=== PATIENT | male | born 1945 | race Caucasian/White ===

== ENCOUNTER → 2024-07-13 15:39 | Outpatient (REF) | payer MEDICARE, BC, SELFPAY | LOC: RCS 15:39 | PROVIDERS: ATTENDING PHYSICIAN Internal Medicine Cardiovascular Disease; FAMILY PHYSICIAN Nurse Practitioner Family | DX: I50.32 Chronic diastolic (congestive) heart failure (principal) | CPT/HCPCS: 93306 ==

== ENCOUNTER 2024-07-30 14:56 | Inpatient (IN) | payer MEDICARE, BC, SELFPAY ==
[2024-07-28] VITALS (10 sets, daily range): BP systolic 88–134; BP diastolic 44–68; BMI 24.2; BMI 23.7
[2024-07-28 14:10] LABS: Glucose - Point of Care 121 mg/dl (70-99)
[2024-07-28 15:21] LABS: % Basophils 1.2 % (0-2); % Eosinophils 4.3 % (0-6); % Lymphocytes 21.2 % (20.5-51.1); % Monocytes 6.4 % (1.7-9.3); % Neutrophils 65.9 % (42.2-75.2); Absolute Basophils 0.1 10^3/uL (0-0.2); Absolute Eosinophils 0.4 10^3/uL (0-0.7); Absolute Immature Granulocytes 0.1 10^3/uL (0-0.05); Absolute Lymphocytes 1.9 10^3/uL (1.2-3.4); Absolute Monocytes 0.6 10^3/uL (0.1-0.6); Absolute Neutrophils 5.9 10^3/uL (1.4-6.5); Hematocrit 30.7 % (39.0-52.0); Hemoglobin 10.3 g/dL (13.0-18.0); Mean Corp Hgb Conc. 33.6 g/dL (33.0-37.0); Mean Corpuscular Hgb 34.6 pg (27.0-31.0); Mean Platelet Volume 9.6 fL (7.4-10.4); Nucleated Red Blood Cells % 0 % (-); Platelet Count 342 10^3/uL (130-400); Red Blood Cell Count 2.98 10^6/uL (4.70-6.10); Red Cell Dist. Width 16.9 % (11.5-14.5)
[2024-07-28 15:35] LABS: ALT (SGPT) 19 U/L (0-50); AST (SGOT) 30 U/L (17-59); Albumin 4.1 g/dl (3.5-5.0); Alkaline Phosphatase 66 U/L (38-126); Blood Urea Nitrogen 33 mg/dl (9-20); Calcium 9.4 mg/dl (8.4-10.2); Carbon Dioxide 30 mmol/L (22-30); Chloride 94 mmol/L (98-107); Glucose 100 mg/dl (70-99); Potassium 4.4 mmol/L (3.5-5.1); Sodium 135 mmol/L (135-145); Total Bilirubin 0.6 mg/dl (0.2-1.3); Total Protein 6.7 g/dl (6.3-8.2); eGFR 4.86
--- NOTE | 2024-07-28 16:10 | EDRN ---
the pt is resting in stretcher in the lowest position, side rails up x2, call molina within reach, HOB elevated, no s/s of distress, NIH 0, Dr. Tavares at the pts bedside, the pt has a RLQ Permacath present, VS WNL, will continue to monitor the pt
closely
--- NOTE | 2024-07-28 16:13 | ED.CVA ---
History of Present Illness
General
Chief Complaint: CVA/TIA Symptoms
Source: patient and respiratory care faculty
Exam Limitations: none
Time Seen by Provider: 07/28/24 16:03
Onset of Stroke Symptoms
Onset of symptoms known: No
Time pt last seen normal is known: Yes
Date last time pt seen normal: 07/28/24
History of Present Illness
History of Present Illness:
79-year-old male with 3 episodes of confusion and trouble with speech. 2 over the weekend. 1 this morning. Symptoms have resolved. No other issues. Patient currently asymptomatic.
Past History
Past History
ED Past Medical History: HTN, Hypercholesterolemia and Other (Renal failure/peritoneal dialysis)
ED Past Surgical History: Other (Dialysis catheter)
Phy Exam
Physical Exam
Physical Exam:
GENERAL: Alert and oriented in no apparent distress
EYE: Orbits normal.
NECK: Supple, no significant adenopathy.
ENT: Pharynx without erythema. A dentulous
CARDIAC: Regular rate and rhythm without any obvious murmurs.
LUNGS: Clear breath sounds,normal
ABDOMEN: Soft, without focal tenderness or distention. Peritoneal dialysis catheter
NEUROLOGICAL: Alert and oriented , speech normal. Cranial nerves II through XII intact. No drift.
SKIN: Warm and dry, no rash or lesion, no discoloration, skin intact.
MUSCULOSKELETAL: No edema,no deformity.Good color
PSYCH: Normal and appropriate interaction.
Course
Orders/Labs/Results
Orders:
Orders
07/28/24 14:10
Electrocardiogram (*1) Urgent
Reason for Study: TIA/Stroke
CT Head W/o Iv Contrast Urgent
Comment:
Reason For Exam: aphasic today but has resovled
07/28/24 14:11
EKG- Treatment ONCE
07/28/24 15:06
Complete Blood Count/With Diff Urgent
Comprehensive Metabolic Panel Urgent
07/28/24 16:40
Admit/Transfer Patient As Directed
Co-Sign Provider:
Level of Care: Observation services
Assign to:: Telemetry
Physician / Group: dennise
Diagnosis: recurrent tia
Reason for Telemetry: CVA/TIA
Date to Stop Telemetry: 07/31/24
Time to Stop Telemetry: 11:00
PRN Pain Medication Management As Directed
May give lesser potent ordered pain med per pt: Yes
preference::
Protocol:: Medication orders for pain may be administered in a
manner that supports deferring to patient preference
when the pt is:
- Requesting an ordered lesser potent pain medication.
Least to most potent pain medications are defined
as: acetaminophen < NSAID < tramadol < opioids
(morphine, oxycodone, hydromorphone).
- Requesting a lesser dose of the same medication IF
ORDERED.
- Requesting a less intrusive route of administration
if both routes are prescribed by the provider (PO <
IV).
07/28/24 16:41
Code Status As Directed
Resuscitation Status: Full Code
07/31/24 11:00
DC Protocol for Telemetry ONCE
Abnormal Lab Results
07/28/24 07/28/24
14:08 15:06
RBC 2.98 L 10^6/uL
(4.70-6.10)
Hgb 10.3 L g/dL
(13.0-18.0)
Hct 30.7 L %
(39.0-52.0)
MCV 103.0 H fL
(80.0-94.0)
MCH 34.6 H pg
(27.0-31.0)
RDW 16.9 H %
(11.5-14.5)
Abs Immat Gran (auto) 0.1 H 10^3/uL
(0-0.05)
Immature Gran % 1.0 H %
(0-0.5)
Chloride 94 L mmol/L
(98-107)
BUN 33 H mg/dl
(9-20)
Creatinine 10.0 H* mg/dL
(0.7-1.3)
Glucose 100 H mg/dl
(70-99)
POC Glucose 121 H mg/dl
(70-99)
07/28/24 15:06
07/28/24 15:06
Vital Signs
Initial and Last Documented VS:
Initial Vital Signs
Temp Pulse Resp BP Pulse Ox
98.4 F 75 16 88/59 98
07/28/24 14:09 07/28/24 14:09 07/28/24 14:09 07/28/24 14:09 07/28/24 14:09
Last Documented Vital Signs
Temp Pulse Resp BP Pulse Ox
98.5 F 76 13 126/52 96
07/28/24 16:05 07/28/24 17:33 07/28/24 17:33 07/28/24 17:33 07/28/24 17:33
MDM/Problems Addressed
Differential Diagnosis Includes:
Recurrent episodes of neurologic changes some with speech issues. Presumptive recurrent TIA. Admission for further care
*Radiology
Radiology exam reviewed: radiology read reviewed (Negative)
*Pulse Oximetry
Patient hypoxic: no
*Critical Care Note
Total Time (30-74mins, 75-104mins- exclusive of procedures): Not Applicable
ED Attending Note
-
Portions of this chart may have been created with voice recognition software.� Occasional wrong word or��sound alike� substitutions may have occurred due to the inherent limitations of voice recognition software.
Discharge Plan
Departure
Patient Disposition: Admit
Date of Disposition: 07/28/24
Time of Disposition: 16:15
Presentation/result/management discussed w/ accepting MD/DO: Hospitalist
Discharge Problem:
Intermittent mental status change, Presumed recurrent TIAs, Renal failure
Interventions
Interventions:
*Risk Screen - Suicide Last Done: 07/28/24 14:09
*Neglect/Abuse Screening Last Done: 07/28/24 14:09
ED- Fall Risk Assessment Last Done: 07/28/24 16:05
*ED COVID-19 Vaccine History Last Done: 07/28/24 16:05
ED- Pulmonary Assessment Last Done: 07/28/24 16:05
ED- Neurological Assessment Last Done: 07/28/24 16:05
ED- Cardiac Assessment Last Done: 07/28/24 16:05
ED Swallowing Screen Last Done: 07/28/24 16:05
--- NOTE | 2024-07-28 16:45 | HPS.HSE ---
Family Physician
-
Family Physician: LUZ MARIA Wolfe
Chief Complaint
-
confusion, difficulty speaking
History of Present Illness
79-year-old male past medical history of CAD status post CABG, paroxysmal atrial fibrillation, HFrEF, ESRD on peritoneal dialysis, hypertension, hypercholesteremia, hypothyroidism, presenting for 3 episodes of confusion and difficulty with speech.
He had 2 episodes over the weekend and 1 episode this morning. During the episode once he did not recognize his nurse. Symptoms are currently resolved. He denies any headache, blurry vision, chest pain, shortness of breath, numbness or tingling,
difficulty swallowing or vertigo at any time. He does feel off balance but this is not a new symptom.
He denies history of prior strokes.
He denies smoking or alcohol use.
Medical History
Past Medical History
Past Medical History: Reports Other (CAD status post CABG, paroxysmal atrial fibrillation, HFrEF, ESRD on peritoneal dialysis, hypertension, hypercholesteremia, hypothyroidism)
Past Surgical History: Reports None
Social History
Tobacco: Non-smoker
Alcohol: None
Drug: None
Family History
Family History: Not pertinent
Allergies / Home Medications
Allergies reflects when Allergies were last updated in [facility].
Home Medications with original date entered in [facility]
Allergy/Medication List:
Allergies
Allergy/AdvReac Type Severity Reaction Status Date / Time
No Known Allergies Allergy Verified 07/28/24 14:10
Home Medications
amiodarone 200 mg tablet 200 mg PO DAILY 07/28/24
amlodipine 5 mg tablet 5 mg PO DAILY 07/28/24
apixaban 2.5 mg tablet (Eliquis) 2.5 mg PO DAILY 07/28/24
atorvastatin 40 mg tablet 40 mg PO DAILY 07/28/24
calcium carbonate 500 mg PO TID 07/28/24
cholecalciferol (vitamin D3) 25 mcg (1,000 unit) tablet (Vitamin D3) 25 mcg PO DAILY 07/28/24
cyanocobalamin (vitamin B-12) 1,000 mcg tablet 1,000 mcg PO DAILY 07/28/24
docusate sodium 100 mg capsule (Colace) 100 mg PO DAILY 07/28/24
levothyroxine 150 mcg tablet 150 mcg PO DAILY 07/28/24
lisinopril 20 mg tablet 40 mg PO DAILY 07/28/24
magnesium oxide 400 mg (241.3 mg magnesium) tablet 400 mg PO DAILY 07/28/24
vitamin B complex-vitamin C-folic acid 800 mcg chewable tablet (Dialyvite 800) 1 tab PO DAILY 07/28/24
Review of Systems
-
History Source: Patient
A 12 point ROS was completed and negative except as noted: Yes
Physical Exam
Vital Signs
Vital Signs
Temp Pulse Resp BP Pulse Ox
98.5 F 64 18 134/56 100
07/28/24 16:05 07/28/24 16:06 07/28/24 16:06 07/28/24 16:06 07/28/24 16:06
Physical Exam
General: Well Developed, Well Nourished and No Apparent Distress
HEENT: NormoCephalic, Moist mucous membranes and Atraumatic
Respiratory: Clear
Cardiac: S1/S2 and Regular Rhythm; No Murmur or Rub
GI: Soft, Non Tender, Non Distended and Normal Bowel Sounds; No Organomegaly
Rectal: Deferred by Provider
Musculoskeletal: No Clubbing, No Cyanosis and No Edema
Skin: No Rash
Neuro: Nonfocal/grossly intact
Laboratory Results
-
07/28/24 15:06
07/28/24 15:06
Laboratory Results
Total Bilirubin 0.6 mg/dl (0.2-1.3) 07/28/24 15:06
AST 30 U/L (17-59) 07/28/24 15:06
ALT 19 U/L (0-50) 07/28/24 15:06
Alkaline Phosphatase 66 U/L (38-126) 07/28/24 15:06
Data Reviewed
-
Lab Data: Labs Reviewed by me
Old Records: Reviewed
Impression/Plan
-
IMPRESSION:
PLAN:
# Recurrent TIA
-no symptoms currently, has been compliant with Eliquis
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
-Neurology consulted
-Check MRI brain
-Continue Eliquis
-Urinalysis pending
-Neurology consulted
CAD status post CABG
Paroxysmal atrial fibrillation
-Continue Eliquis
-Continue amiodarone
Chronic HFrEF with recovered EF
-Continue Lasix
ESRD on peritoneal dialysis
-Nephrology consulted to facilitate peritoneal dialysis
Essential hypertension
-Continue amlodipine, lisinopril
Hypercholesterolemia
-Continue statin
Hypothyroidism
-Continue levothyroxine
Chronic anemia
-Hemoglobin of 10, unknown baseline
Full code
DVT prophylaxis�Eliquis
Cardiac diet
--- NOTE | 2024-07-28 16:57 | W.CON.NEPH ---
Consultation
-
Date/Time Consultation Requested: 07/28/2024 4:50 PM
Date/Time Consultation Performed: 07/28/2024 5:00 PM
Requesting Provider: Dr. Su
Performing Provider: Dr. Brown
Reason for Consultation: End-stage renal disease
Medical History
-
Chief Complaint: End-stage renal disease
History of Present Illness:
79-year-old male past medical history of CAD status post CABG, paroxysmal atrial fibrillation(maintained on amiodarone and anticoagulated with Eliquis), HFrEF, ESRD on peritoneal dialysis, hypertension (maintained on amlodipine and lisinopril),
hypercholesteremia, hypothyroidism, presenting for 3 episodes of confusion and difficulty with speech. He had 2 episodes over the weekend and 1 episode this morning. During the episode once he did not recognize his nurse. Symptoms are currently
resolved. He denies any headache, blurry vision, chest pain, shortness of breath, numbness or tingling, difficulty swallowing or vertigo at any time. He does feel off balance but this is not a new symptom.
Past Medical History
End-stage renal disease on peritoneal dialysis
Coronary artery disease with history of CABG
Paroxysmal atrial fibrillation on chronic anticoagulation
HFpEF
Hypothyroidism
Hyperphosphatemia
Anemia
Dyslipidemia
Social History
Tobacco: Non-Smoker
Alcohol: None
Drug: None
Allergies / Home Medications
Allergy/AdvReac Type Severity Reaction Status Date / Time
No Known Allergies Allergy Verified 07/28/24 14:10
�Medication �Instructions �Recorded �Confirmed �Type
amiodarone 200 mg tablet 200 mg PO DAILY 07/28/24 07/28/24 History
amlodipine 5 mg tablet 5 mg PO DAILY 07/28/24 07/28/24 History
apixaban 2.5 mg tablet (Eliquis) 2.5 mg PO DAILY 07/28/24 07/28/24 History
atorvastatin 40 mg tablet 40 mg PO DAILY 07/28/24 07/28/24 History
calcium carbonate 500 mg PO TID 07/28/24 07/28/24 History
cholecalciferol (vitamin D3) 25 25 mcg PO DAILY 07/28/24 07/28/24 History
mcg (1,000 unit) tablet (Vitamin
D3)
cyanocobalamin (vitamin B-12) 1,000 mcg PO DAILY 07/28/24 07/28/24 History
1,000 mcg tablet
docusate sodium 100 mg capsule 100 mg PO DAILY 07/28/24 07/28/24 History
(Colace)
levothyroxine 150 mcg tablet 150 mcg PO DAILY 07/28/24 07/28/24 History
lisinopril 20 mg tablet 40 mg PO DAILY 07/28/24 07/28/24 History
magnesium oxide 400 mg (241.3 mg 400 mg PO DAILY 07/28/24 07/28/24 History
magnesium) tablet
vitamin B complex-vitamin C-folic 1 tab PO DAILY 07/28/24 07/28/24 History
acid 800 mcg chewable tablet
(Dialyvite 800)
Review of Systems
-
History Source: Patient
All other systems: Negative unless noted
Abdomen/GI: Other (PD cath)
: Other (Small amount of urine produced)
Neurological: Other (Confusion dysarthria no longer present at time of exam)
Physical Exam
Vital Signs
Vital Signs
Temp Pulse Resp BP Pulse Ox
98.5 F 64 18 134/56 100
07/28/24 16:05 07/28/24 16:06 07/28/24 16:06 07/28/24 16:06 07/28/24 16:06
Lab Results
07/28/24 15:06
07/28/24 15:06
WBC 9.0 10^3/uL (4.8-10.8) 07/28/24 15:06
RBC 2.98 10^6/uL (4.70-6.10) L 07/28/24 15:06
Hgb 10.3 g/dL (13.0-18.0) L 07/28/24 15:06
Hct 30.7 % (39.0-52.0) L 07/28/24 15:06
Plt Count 342 10^3/uL (130-400) 07/28/24 15:06
Sodium 135 mmol/L (135-145) 07/28/24 15:06
Potassium 4.4 mmol/L (3.5-5.1) 07/28/24 15:06
Chloride 94 mmol/L (98-107) L 07/28/24 15:06
Carbon Dioxide 30 mmol/L (22-30) 07/28/24 15:06
BUN 33 mg/dl (9-20) H 07/28/24 15:06
Creatinine 10.0 mg/dL (0.7-1.3) H* 07/28/24 15:06
eGFR 4.86 07/28/24 15:06
Glucose 100 mg/dl (70-99) H 07/28/24 15:06
Calcium 9.4 mg/dl (8.4-10.2) 07/28/24 15:06
Albumin 4.1 g/dl (3.5-5.0) 07/28/24 15:06
Physical Exam
General: AOx3, Nontoxic , NAD
HEENT: PERRL, EOMI, Anicteric, Conjunctivae Clear, Ear/Nose Intact, Hearing Normal, Oropharynx Clear/Moist, Dentition Intact, Facial Symmetry, Neck Supple, Neck: Trachea Midline, No JVD and No Thyromegaly, no Bruits
Respiratory: Clear to auscultation bilaterally with normal lung exersion
Cardiac: S1/S2 and Regular Rate/Rhythm
Breast: Deferred by me
Abdomen: Soft, Nontender, Nondistended, Normal Bowel Sounds and No Hepatosplenomegaly, PD catheter with clean exit site
Rectal: Deferred by Provider
Genito-urinary: No Costovertebral Tenderness
Extremities: No Clubbing, No Cyanosis and No Edema
Skin: No Rash or open lesions
Neuro: Nonfocal/Grossly Intact, CN II-XII (Intact) and Strength (Musculoskeletal exam 5 out of 5 both upper and lower extremities)
Hematologic/Lymphatic: No Cervical Lymphadenopathy, No Submandibular Lymphadenopathy and No Supraclavicular Lymphadenopathy
Psych: Mood/afflect pleasant, Insight/judgement good and Appropriate
Vascular: plus 1 pedal and radial pulses
Data Reviewed
-
Radiology: Report Reviewed by me (Head CT report reviewed: Moderate diffuse cortical and cerebellar atrophy , old 4 cm focal area of volume loss and encephalomalacia in the posterior lateral aspect of the right frontal lobe no acute intracranial
abnormalities)
Medical Tests (Nuc Med, Echo etc): Other (EKG personally reviewed sinus rhythm with first-degree AV block left anterior fascicular block inferior infarct at 67 beats per)
Labs: Labs Reviewed by me (BMP CBC reviewed)
Assessment/Plan
-
Impression:
Suspected TIA
End-stage renal disease on peritoneal dialysis
Hypertension
Paroxysmal atrial fibrillation
Hyperphosphatemia
Anemia
History of CABG
Plan:
-Will arrange PD and provide PD orders
-Can provide ROMI intermittently for anemia of chronic kidney disease
-Maintain current antihypertensives for hypertension which appears to be controlled
-Maintain calcium acetate with meals in regards to hyperphosphatemia
-Fluid restriction at 1500 cc daily, low sodium and potassium diet
-TIA workup in progress CT scan without acute findings: Will likely undergo carotid ultrasound echo and MRI
--- NOTE | 2024-07-28 17:34 | EDRN ---
the pt is resting in stretcher in the lowest position, side rails up x2, call molina within reach, HOB elevated, no s/s of distress, VS WNL, no c/o chest pain, no c/o SOB, the pt denies needing anything at this time, will continue to monitor the pt
closely
[2024-07-28] MEDS: TUMS CHEWABLE TABLET 200 MG PO (21:05)
[2024-07-29] VITALS (11 sets, daily range): BP systolic 101–168; BP diastolic 51–85; BMI 23.5
[2024-07-29] MEDS: SYNTHROID 150 MCG PO (04:51)
[2024-07-29 04:59] LABS: % Eosinophils 4.2 % (0-6); % Lymphocytes 28.1 % (20.5-51.1); % Monocytes 8.2 % (1.7-9.3); % Neutrophils 57.5 % (42.2-75.2); Absolute Basophils 0.1 10^3/uL (0-0.2); Absolute Eosinophils 0.4 10^3/uL (0-0.7); Absolute Immature Granulocytes 0.1 10^3/uL (0-0.05); Absolute Lymphocytes 2.5 10^3/uL (1.2-3.4); Absolute Monocytes 0.7 10^3/uL (0.1-0.6); Hematocrit 26.1 % (39.0-52.0); Hemoglobin 9.1 g/dL (13.0-18.0); Mean Corp Hgb Conc. 34.9 g/dL (33.0-37.0); Mean Corpuscular Hgb 34.5 pg (27.0-31.0); Mean Corpuscular Volume 98.9 fL (80.0-94.0); Mean Platelet Volume 9.8 fL (7.4-10.4); Nucleated Red Blood Cells % 0 % (-); Platelet Count 300 10^3/uL (130-400); Red Blood Cell Count 2.64 10^6/uL (4.70-6.10); Red Cell Dist. Width 16.9 % (11.5-14.5); White Blood Cell Count 8.7 10^3/uL (4.8-10.8)
[2024-07-29 05:29] LABS: ALT (SGPT) 17 U/L (0-50); AST (SGOT) 17 U/L (17-59); Albumin 3.3 g/dl (3.5-5.0); Alkaline Phosphatase 119 U/L (38-126); Blood Urea Nitrogen 38 mg/dl (9-20); Calcium 8.7 mg/dl (8.4-10.2); Carbon Dioxide 26 mmol/L (22-30); Chloride 99 mmol/L (98-107); Estimated Creatinine Clearance 5 ml/min; Glucose 92 mg/dl (70-99); Sodium 137 mmol/L (135-145); Total Bilirubin 0.2 mg/dl (0.2-1.3); Total Protein 5.4 g/dl (6.3-8.2)
--- NOTE | 2024-07-29 06:47 | PTCARENOTE ---
No acute events overnight. No episodes of confusion. PD completed q5h overnight.
--- NOTE | 2024-07-29 08:33 | W.PN.HOSP.TC ---
Today's Communication/Plan
-
MRI
PT OT
Assessment / Plan
Assessment / Plan
79-year-old man with speaking and confusion
CT of the head-old 4 cm right lateral frontal infarct. Moderate diffuse cortical and cerebellar atrophy
EKG sinus rhythm with first AV block, Left anterior vascular block
Echo 07/13/2024-small LV. LVH-mild. EF 55 to 60%. Thickened mitral leaflets mitral annular calcification, trace MR. Mild sclerosis without stenosis
(An echo at [facility] in 2022 was notable for stage II diastolic dysfunction with a dilated left atrium, mild mitral regurgitation and ejection fraction 65%)
Patient was taking 2.5 mg of Eliquis as it is expensive for him and this was leftover from his mother.
CVS: S1-S2 normal
Chest: CTA B/L
Abdomen: Soft, NT / Bowel sounds present
Extremities: No edema, normal pulses
[employer]: Non focal exam
# Difficulty speaking and confusion
Admitted for ruling out TIA
Check MRI of the brain
Old CVA on the CT
Continue Eliquis-but changed to his correct dose which will be 5 mg twice daily
Neurology has been consulted
Continue neurochecks
# Coronary artery disease with history of CABG
# Paroxysmal atrial fibrillation-continue Eliquis and amiodarone.
# Chronic heart failure with reduced ejection fraction with recovered ejection fraction-continue Lasix
# ESRD on peritoneal dialysis-nephrology consulted
# Hypertension-continue amlodipine and lisinopril
# Hyperlipidemia-continue statin
# Hypothyroidism-continue Synthroid
# Chronic anemia-likely secondary to kidney disease. Iron studies.
# Cognitive Dysfunction per son
# Ex Smoker
# DVT prophylaxis-Eliquis
# Full code
D/W son and updated
Discussed with pharmacy regarding dose of Eliquis
Discussed with nursing
Discussed with neurology
Imaging reviewed
Time spent more than 50 minutes
Anticipated Discharge: Within 24 hours
Subjective/Interval History
-
Date of Service: July 29, 2024
Objective Data
-
Labs:
Laboratory Results
07/29/24
04:28
WBC 8.7
Hgb 9.1 L
Hct 26.1 L
Plt Count 300
Sodium 137
Potassium 4.0
Chloride 99
Carbon Dioxide 26
BUN 38 H
Creatinine 10.1 H*
Glucose 92
Calcium 8.7
Total Bilirubin 0.2
AST 17
ALT 17
Alkaline Phosphatase 119
Vital Signs:
Vital Signs
Temp Pulse Resp BP Pulse Ox
98.3 F 69 14 130/51 100
07/29/24 05:22 07/29/24 06:00 07/29/24 06:00 07/29/24 06:00 07/29/24 06:00
I&O
07/28/24 07/29/24 07/30/24
06:59 06:59 06:59
Output Total 300 / 300
Balance -300 / -300
--- NOTE | 2024-07-29 08:52 | CON.NEURO4 ---
Addendum entered and electronically signed by Sheeba Zaldivar DO 07/29/24 16:24:
I have personally examined the patient. I agree with the [employer]'s Note.
My addenda:
79 year-old male with transient confusion and garbled speech; this has occurred 3x total thus far and has been witnessed by his dialysis nurse. Currently he remains at baseline, NIHSS is 0. He is a good historian.
Differential includes recurrent TIA vs possible seizure.
MRIs to be done tomorrow. Will also check an EEG.
Continue Eliquis given resolution of symptoms.
Continue neurochecks, NIHSS.
Will c/t follow.
Original Note:
Documented by User: Kathleen Lorenzo NP 07/29/24 12:28
Consultation - Neurology 4
-
CONSULTING PHYSICIAN: Sheeba Zaldivar DO
REFERRING PHYSICIAN: Hospitalists/Dr. Su
DICTATED BY: LUZ MARIA Gaitan
DATE/TIME OF REQUEST: 07/28/24
DATE/TIME OF CONSULTATION: 07/29/24
Reason for Consultation: Transient confusion
History of Present Illness:
This is a 79-year-old right-handed male who has presented to the hospital with report of transient confusion and garbled speech. Patient reports that for the past few weeks he has felt extremely fatigued and his PCP adjusted his thyroid medication
because his TSH was 'off.' Additionally, 2-3 weeks ago he lost his balance and fell and hit his head but denies any loss of consciousness. He has been doing peritoneal dialysis for the past 4-5 years and has nurses come to his house daily to assist
with this. Five days ago on 07/24/24 he notes that his usual nurse showed up at his house and he did not know who she was. He also notes that she said his speech sounded garbled/was nonsensical. He thinks he returned to his baseline after 2-3
minutes. The following day on 07/25/24, he notes a similar event happened when his nurse was there again, and then yesterday (07/28/24) he was confused/garbled speech on her arrival again, prompting her to send him to the ER for evaluation. He
denies any loss of consciousness, tongue biting, or incontinence associated with these events. 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 Currently
(07/29/24), he reports feeling at his baseline. He denies any further confusion/speech difficulty. He denies any headache, neck pain, dizziness, vision changes, swallowing difficulty, numbness, focal weakness. He notes that his left eye has chronic
low vision which he describes as severe blurring. He was evaluated by his manager of marketing about a week ago and told he has a left eye cataract, he was planning to schedule removal of this. He also notes that his balance is poor at baseline. He
denies any known history of TIA, stroke, seizure, or events like this in the past. He is on renal dosing of Eliquis for Afib and denies missing any doses.
Past Medical History: Paroxysmal Afib (Eliquis), ESRD (peritoneal dialysis), HTN, HLD, CAD, HFrEF, hypothyroidism
Surgical History: PD catheter, CABG
Family History: Uncle- Parkinson disease.
Social History: Former smoker. Denies alcohol and illicit drug use.
Allergies: No known allergies.
Home Medications: See below.
Review of Symptoms:
Patient denies any fever, headache, chest pain, shortness of breath, GI or symptoms.
�Per the HPI.�All systems are reviewed negative except above.
Physical Exam:
The patient is afebrile, abdomen is nondistended, breathing is unlabored, skin is warm and dry, no edema.
NIH Stroke Scale:
I performed the NIH stroke scale on the patient on 07/29/24 at 0930. The patient scored 0 points on the NIH stroke scale assessment, which were assigned as follows: See below.
Neurologic Examination:
The patient is awake, alert and oriented x 3. He is able to follow commands and answer questions appropriately. There is no aphasia or dysarthria. On cranial nerve assessment, pupils are 3 mm bilateral, round and reactive to light and
accommodation. Visual vela are full in the right eye, full in the left eye to finger wiggle/cannot distinguish individual fingers. Extraocular movements are intact. Facial sensations are intact and bilaterally symmetrical, there is no facial
asymmetry. Hearing is intact bilaterally to normal conversation volume. Tongue palate and uvula are midline. Sternocleidomastoid strengths are full bilaterally. Motor strengths are 5/5 bilateral upper and lower extremities on medical research
[place] scale. There is no drift or involuntary movement noted. Deep tendon reflexes are 1+ bilateral upper and lower extremities and Babinski is absent bilaterally. There was no extinction noted on double simultaneous stimulation. Coordination is
intact by finger to nose bilaterally.
Lab Results: See below.
Neuro Imaging:
1. CT Head 07/28/24: There are no acute intracranial abnormalities. There is old 4 cm right lateral frontal infarct. There is moderate diffuse cortical and cerebellar atrophy.
Differentials for the patient's presentation include:
1. Transient confusion/nonsensical speech; unclear etiology, possibly metabolic disturbance, TIA, new stroke, or seizure.
2. 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
Patient has the following risk factors for their symptoms: Hypothyroidism, ESRD, old stroke, Afib, HTN, HLD, age
IV Tenecteplase/IAT candidacy: Not a candidate due to NIHSS 0, symptoms resolved.
Recommendations:
-MRI brain, MRA head/neck pending.
-Goal normotension.
-Continue home Eliquis.
-LDL goal <70. LDL is 62. Continue home atorvastatin 40mg daily.
-Goal normoglycemia, hbA1c is 4.4.
-NIHSS and neurological checks per unit guidelines.
-Provide patient with a stroke education packet.
-Checking blood work for metabolic abnormalities.
-Consider outpatient EEG if workup is unremarkable.
-DVT prophlaxis with OAC.
-PT/OT/ST evaluations.
-Will follow pending results.
Discussed patient care with: Dr. Zaldivar, the patient.
Vital Signs and Labs
-
Vital Signs and Labs:
Vital Signs
Temp Pulse Resp BP Pulse Ox
97.9 F 63 14 123/58 100
07/29/24 07:07 07/29/24 09:38 07/29/24 06:00 07/29/24 09:38 07/29/24 06:00
Lab Results
07/29/24 04:28
07/29/24 04:28
Sodium 137 mmol/L (135-145) 07/29/24 04:28
Potassium 4.0 mmol/L (3.5-5.1) 07/29/24 04:28
BUN 38 mg/dl (9-20) H 07/29/24 04:28
Glucose 92 mg/dl (70-99) 07/29/24 04:28
Calcium 8.7 mg/dl (8.4-10.2) 07/29/24 04:28
LDL Cholesterol, Calc 62 mg/dl 07/29/24 04:28
Medications
-
Active Medications
Generic Name Dose Route Start Last Admin
Trade Name Freq PRN Reason Stop Dose Admin
Amiodarone HCl 200 mg 07/29/24 08:00 07/29/24 09:37
Amiodarone 200 Mg Tablet PO 08/26/24 07:59 200 mg
DAILY SHARMAINE Administration
Amlodipine Besylate 5 mg 07/29/24 08:00 07/29/24 09:38
Amlodipine 5 Mg Tablet PO 08/26/24 07:59 5 mg
DAILY SHARMAINE Administration
Apixaban 5 mg 07/29/24 20:00
Apixaban (Eliquis) 5 Mg Tablet PO 08/26/24 19:59
BID SHARMAINE
Atorvastatin Calcium 40 mg 07/29/24 08:00 07/29/24 09:37
Atorvastatin (Lipitor) 40 Mg Tablet PO 08/26/24 07:59 40 mg
DAILY SHARMAINE Administration
Calcium Carbonate 200 mg 07/28/24 22:00 07/29/24 09:37
Calcium Antacid 200 Mg (Calcium Carbonate 500 Mg) Chew Tablet PO 08/25/24 21:59 200 mg
TID SHARMAINE Administration
Cholecalciferol 25 mcg 07/29/24 08:00 07/29/24 09:38
Cholecalciferol (Vitamin D3) 25 Mcg Tablet (1,000 Units) PO 08/26/24 07:59 25 mcg
DAILY SHARMAINE Administration
Cyanocobalamin 1,000 mcg 07/29/24 08:00 07/29/24 09:37
Cyanocobalamin 1,000 Mcg Tablet PO 08/26/24 07:59 1,000 mcg
DAILY SHARMAINE Administration
Docusate Sodium 100 mg 07/29/24 08:00 07/29/24 09:37
Docusate Sodium 100 Mg Capsule PO 08/26/24 07:59 100 mg
DAILY SHARMAINE Administration
Levothyroxine Sodium 150 mcg 07/29/24 06:00 07/29/24 04:51
Levothyroxine 150 Mcg Tablet PO 08/26/24 05:59 150 mcg
DAILY @ 0600 SHARMAINE Administration
Lisinopril 40 mg 07/29/24 08:00 07/29/24 09:38
Lisinopril 20 Mg Tablet PO 08/26/24 07:59 40 mg
DAILY SHARMAINE Administration
Magnesium 84 mg 07/29/24 08:00 07/29/24 09:38
Magnesium Lactate 84 Mg Tablet PO 08/26/24 07:59 84 mg
DAILY SHARMAINE Administration
Sodium Chloride 0 flush 07/28/24 21:00
Sodium Chloride 0.9% (Flush) Syringe IV 08/25/24 20:59
PER PROTOCOL SHARMAINE
Vitamin B Complex/Vit C/Folic Acid 1 capsule 07/29/24 08:00 07/29/24 09:37
Renal Cap (Nephrocap) Capsule PO 08/26/24 07:59 1 capsule
DAILY SHARMAINE Administration
Home Medications
�Medication �Instructions �Recorded
amiodarone 200 mg tablet 200 mg PO DAILY Arrhythmia 07/28/24
amlodipine 5 mg tablet 5 mg PO DAILY Blood Pressure 07/28/24
apixaban 2.5 mg tablet (Eliquis) 2.5 mg PO DAILY Blood Clot 07/28/24
Prevention/Tx
atorvastatin 40 mg tablet 40 mg PO DAILY High Cholesterol 07/28/24
calcium carbonate 500 mg PO TID Gastrointestinal 07/28/24
Issue
cholecalciferol (vitamin D3) 25 25 mcg PO DAILY Supplement 07/28/24
mcg (1,000 unit) tablet (Vitamin
D3)
cyanocobalamin (vitamin B-12) 1,000 mcg PO DAILY Supplement 07/28/24
1,000 mcg tablet
docusate sodium 100 mg capsule 100 mg PO DAILY Constipation 07/28/24
(Colace)
levothyroxine 150 mcg tablet 150 mcg PO DAILY Thyroid 07/28/24
lisinopril 20 mg tablet 40 mg PO DAILY Blood Pressure 07/28/24
magnesium oxide 400 mg (241.3 mg 400 mg PO DAILY Supplement 07/28/24
magnesium) tablet
vitamin B complex-vitamin C-folic 1 tab PO DAILY Supplement 07/28/24
acid 800 mcg chewable tablet
(Dialyvite 800)
NIH Stroke Score
Subsequent NIH Scale
Date of Subsequent NIH Scale: 07/29/24
Time of Subsequent NIH Scale: 09:30
NIH Stroke Score
Level of Consciousness: 0 - Alert
LOC Questions: 0-Answers both correctly
LOC Commands: 0-Performs both correctly
Best Horizontal Gaze: 0-Normal
Visual Vela: 0=Normal, no visual loss
Facial Palsy: 0=Normal, symmetrical
Motor - Right Arm: 0=No drift 10 seconds
Motor - Left Arm: 0=No drift 10 seconds
Motor - Right Le-No drift 5 seconds
Motor - Left Le-No drift 5 seconds
Limb Ataxia: 0-Absent
Sensation: 0-Normal
Best Language: 0-No aphasia
Dysarthria: 0-Normal
Extinction and Inattention: 0-No abnormality
Total Score:: 0
Modified [place] (mRS) Score
[place] Scale (mRS): No symptoms
Score: 0

Documented by User: Sheeba Zaldivar DO 07/29/24 16:22
NIH Stroke Score
NIH Stroke Score
Total Score:: 0
Modified [place] (mRS) Score
Score: 0
[2024-07-29] MEDS: COLACE 100 MG PO (09:37)
[2024-07-29] MEDS: NEPHROCAP 1 CAPSULE PO (09:37)
[2024-07-29] MEDS: LIPITOR 40 MG PO (09:37)
[2024-07-29] MEDS: PACERONE 200 MG PO (09:37)
[2024-07-29] MEDS: VITAMIN B-12 1000 MCG PO (09:37)
[2024-07-29] MEDS: TUMS CHEWABLE TABLET 200 MG PO ×3 (09:37→21:36)
[2024-07-29] MEDS: NORVASC 5 MG PO (09:38)
[2024-07-29] MEDS: ELIQUIS 2.5 MG PO (09:38)
[2024-07-29] MEDS: MAG-TAB SR 84 MG PO (09:38)
[2024-07-29] MEDS: VITAMIN D3 (cholecalciferol) 25 MCG PO (09:38)
[2024-07-29] MEDS: ZESTRIL 40 MG PO (09:38)
[2024-07-29 10:24] LABS: Glycohemoglobin (HgbA1c) 4.4 % (4.0-5.6)
--- NOTE | 2024-07-29 10:44 | W.PN.NEPH.PH ---
Today's Communication / Plan
-
PD orders written
Assessment/Plan
-
Impression:
Suspected TIA
End-stage renal disease on peritoneal dialysis
Hypertension
Paroxysmal atrial fibrillation
Hyperphosphatemia
Anemia
History of CABG
Plan:
-PD flowsheet reviewed
-Will change PD prescription to every 4 hours exchanges with 1.5%
-Can provide ROMI intermittently for anemia of chronic kidney disease
-Maintain current antihypertensives for hypertension which appears to be controlled
-Maintain calcium acetate with meals in regards to hyperphosphatemia
-Fluid restriction at 1500 cc daily, low sodium and potassium diet
-TIA workup in progress CT scan without acute findings: MRI of head and neck today
1.5%Q4hr exchange at 2Liter volumes
-
-
Date of Service: July 29, 2024
CC / HPI / ROS
-
Chief Complaint:
End-stage renal disease on peritoneal dialysis
History of Present Illness:
Peritoneal dialysis daily
Hemodynamically stable
Review of Systems:
No chest pain or shortness of breath
No focal neurological weakness
Labs
-
Labs:
WBC 8.7 10^3/uL (4.8-10.8) 07/29/24 04:28
RBC 2.64 10^6/uL (4.70-6.10) L 07/29/24 04:28
Hgb 9.1 g/dL (13.0-18.0) L 07/29/24 04:28
Hct 26.1 % (39.0-52.0) L 07/29/24 04:28
Plt Count 300 10^3/uL (130-400) 07/29/24 04:28
Sodium 137 mmol/L (135-145) 07/29/24 04:28
Potassium 4.0 mmol/L (3.5-5.1) 07/29/24 04:28
Chloride 99 mmol/L (98-107) 07/29/24 04:28
Carbon Dioxide 26 mmol/L (22-30) 07/29/24 04:28
BUN 38 mg/dl (9-20) H 07/29/24 04:28
Creatinine 10.1 mg/dL (0.7-1.3) H* 07/29/24 04:28
eGFR 4.80 07/29/24 04:28
Glucose 92 mg/dl (70-99) 07/29/24 04:28
Calcium 8.7 mg/dl (8.4-10.2) 07/29/24 04:28
Albumin 3.3 g/dl (3.5-5.0) L 07/29/24 04:28
Physical Exam
-
Vital Signs:
Vital Signs
Temp Pulse Resp BP Pulse Ox
97.9 F 63 14 123/58 100
07/29/24 07:07 07/29/24 09:38 07/29/24 06:00 07/29/24 09:38 07/29/24 06:00
Cardiovascular:: Regular rate and rhythm
Respiratory:: Bilateral: CTA
Lung Excursion:: Normal
Abdomen:: Nontender and Soft
Bowel Sounds:: Normal
Extremity Edema:: None: Bilateral:
Gavin Catheter: No
Other Findings::
PD cath site: clean
[2024-07-29 11:02] LABS: HDL Cholesterol 23 mg/dl; Iron 53 ug/dl (49-181); LDL Cholesterol, Calculated 62 mg/dl; Total Cholesterol 131 mg/dl (50-199); Triglyceride 230 mg/dl (10-149); Very Low Density Lipoprotein 46 mg/dl (0-30)
[2024-07-29 11:09] LABS: Percent Saturation 30 % (20-50); Total Iron Binding Capacity 175 ug/dl (261-462)
[2024-07-29 12:25] LABS: TSH Reflex To Free T4 3.67 uIU/ml (0.47-4.68)
--- NOTE | 2024-07-29 12:38 | CM ---
Addendum entered by Luzma Strickland RN 07/29/24 13:12:
[facility] Letter completed.
Original Note:
Patient with Hx ESRD on PD with Dx Suspected TIA. Room air. MRI pending. PT/OT Evals pending.
Met with patient and son Hossein HILLARY;
the patient resides alone in a mobile home with ramp entrance.
Son lives in 1 story house at same location.
The patient requires assistance with ADLs and ambulates independently sometimes using SPC.
Son states that patient only changes his clothes and is assisted with a bath once weekly by Luzma, private pay caregiver.
There are 3 private pay caregivers who assist patient with daily PD, Berta Segal & Mackenzie.
Patient obtains PD supplies from [facility].
Son shares that he tried to find an agency caregiver to assist with PD and was unable.
The caregivers are there 20-30 hrs/week, usually 4-5 hrs at a time.
Caregivers drive the patient to medical appointments and he uses his w/c for this.
DME - SPC, RW, w/c
Current with [facility] for PT - son wishes patient to resume at discharge
Prior [facility]
The patient has 5 children.
Hossein says patient just signed up for [employer] benefits and has first appt 08/10/24.
Son hoping VA will cover cost of his Eliquis that he currently has no coverage for.
Son says patient has adequate supply Eliquis at home until this appt.
Plan follow up after seen by PT/OT.
Plan probable home with resumption [facility].
[2024-07-29 13:00] LABS: Folate > 20.0 ng/ml (2.76-20); Vitamin B12 > 1000 pg/ml (239-931)
--- NOTE | 2024-07-29 15:26 | PTOTSP ---
ST Acute Care Evaluations
Pt currently presents with oral, pharyngeal, and esophageal parameters that are WFL for safe PO intake of all solids and liquids. No overt s/s of penetration or aspiration were noted at bedside. No skilled dysphagia services indicated at this time.
Baseline Information:
- Pt lives independently in a trailer on his son (Malvin)'s property - he checks in on the pt from time to time. Pt also has visiting nurses 20-30 hours a week for is peritoneal dialysis as well as other assistance.
- Pt is independent with cooking and taking his medications.
- Pt's son Malvin manages his finances.
- Pt no longer drives (stopped ~1 year ago, per son's insistence). RN/aides drive him to appointments.
- RN/aides help with getting his groceries, cleaning, laundry, and medication management/organization.
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
- Pt wears glasses all the time for reading and distance.
- Pt reports occasional forgetfulness, but nothing significant.
- Per pt's son, pt has a baseline cognitive dysfunction.
- Per one of pt's RNs who was at bedside (I spoke to privately), she reports mild cognitive difficulties (i.e., reduced insight/judgment) that can be somewhat attributed to his rigid personality.
Clinical Observations:
- Pt's speech was clear, well-articulated, and completely intelligible to an unfamiliar listener.
- Pt's verbal output was an appropriate rate and completely fluent. Pt occasionally pauses to gather his thoughts, but this is not very noticeable.
- Pt appeared to understand all questions asked by GAMBLING BROKER.
Findings:
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 These deficits could be acute on chronic
in nature - will await MRI results to determine chronicity of symptoms.
Recommendations:
- Continue regular solids, thin liquids, meds as tolerated.
- General aspiration precautions.
- No skilled dysphagia services warranted.
- GAMBLING BROKER to tx mild cognitive linguistic impairment.
- Recommending GAMBLING BROKER services for tx of mild cognitive linguistic impairment.
--- NOTE | 2024-07-29 17:37 | PTCARENOTE ---
Patient AOx3. NIH stroke scale completed per order. PD completed per order. Dr. Brown made aware of fluid excess. Patient ambulated to bathroom with mid assist. Call molina within reach, bed in lowest position, and wheels locked.
[2024-07-29] MEDS: ELIQUIS 5 MG PO (20:03)
--- NOTE | 2024-07-29 22:00 | PTCARENOTE ---
Pt received from previous RN. Pt AAOx3 , pleasant, engaging in oriented conversation. NSR on monitor. PD complected as ordered, see PD intervention flowsheet. FR maintained. Assessment as documented. Q4 NIH unchanged from previous shift, scoring
zero. Call light in reach.
[2024-07-30] VITALS (10 sets, daily range): BP systolic 98–169; BP diastolic 52–97; PULSE 71–87; BMI 21.8
[2024-07-30] MEDS: SYNTHROID 150 MCG PO (05:30)
[2024-07-30 06:56] LABS: Blood Urea Nitrogen 36 mg/dl (9-20); Calcium 8.5 mg/dl (8.4-10.2); Carbon Dioxide 29 mmol/L (22-30); Chloride 95 mmol/L (98-107); Estimated Creatinine Clearance 6 ml/min; Glucose 93 mg/dl (70-99); Sodium 134 mmol/L (135-145); eGFR 5.17
[2024-07-30] MEDS: PACERONE 200 MG PO (08:05)
[2024-07-30] MEDS: ELIQUIS 5 MG PO ×2 (08:05→19:26)
[2024-07-30] MEDS: TUMS CHEWABLE TABLET 200 MG PO ×3 (08:05→21:14)
[2024-07-30] MEDS: NEPHROCAP 1 CAPSULE PO (08:05)
[2024-07-30] MEDS: NORVASC 5 MG PO (08:05)
[2024-07-30] MEDS: COLACE 100 MG PO (08:05)
[2024-07-30] MEDS: LIPITOR 40 MG PO (08:05)
[2024-07-30] MEDS: ZESTRIL 40 MG PO (08:06)
[2024-07-30] MEDS: MAG-TAB SR 84 MG PO (08:06)
[2024-07-30] MEDS: VITAMIN D3 (cholecalciferol) 25 MCG PO (08:06)
[2024-07-30] MEDS: VITAMIN B-12 1000 MCG PO (08:13)
--- NOTE | 2024-07-30 09:44 | W.PN.NEURO.1 ---
Addendum entered and electronically signed by Edmar Walden MD 07/30/24 12:23:
Acute strokes notes
Original Note:
Today's Communication / Plan
-
Consider initiation of lamotrigine if MRI imaging fails to demonstrate an acute lesion
MRI brain, MRA head/neck pending.
Neuro Assessment/Plan
Assessment
CT Head 07/28/24: There are no acute intracranial abnormalities. There is old 4 cm right lateral frontal infarct. There is moderate diffuse cortical and cerebellar atrophy.
Differentials for the patient's presentation include:
1. Transient confusion/nonsensical speech; unclear etiology, possibly metabolic disturbance, TIA, new stroke, or seizure.
2. 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
Patient has the following risk factors for their symptoms: Hypothyroidism, ESRD, old stroke, Afib, HTN, HLD, age
Plan
Recommendations:
Consider initiation of lamotrigine if MRI imaging fails to demonstrate an acute lesion
-MRI brain, MRA head/neck pending.
-Goal normotension.
-Continue home Eliquis.
Continue home atorvastatin 40mg daily
Will follow pending results
Subjective/Objective
Subjective Data
Date of Service: July 30, 2024
Patient reports no recurrent episodes.
Objective Data
Vital Signs
Temp Pulse Resp BP Pulse Ox
36.4 C 61 16 149/56 96
07/30/24 07:25 07/30/24 08:06 07/30/24 08:06 07/30/24 08:06 07/30/24 08:06
Lab Results
07/29/24 04:28
07/30/24 05:37
Sodium 134 mmol/L (135-145) L 07/30/24 05:37
Potassium 4.0 mmol/L (3.5-5.1) 07/30/24 05:37
BUN 36 mg/dl (9-20) H 07/30/24 05:37
Glucose 93 mg/dl (70-99) 07/30/24 05:37
Calcium 8.5 mg/dl (8.4-10.2) 07/30/24 05:37
LDL Cholesterol, Calc 62 mg/dl 07/29/24 04:28
Vitamin B12 > 1000 pg/ml (239-931) H 07/29/24 04:28
Patient Allergies
No Known Allergies Allergy (Verified 07/28/24 14:10)
Review of Systems
-
History Source: Patient
All other systems: Reviewed and negative
Neuro: Negative Headache
Physical Exam
-
General: No Apparent Distress and Appears Stated Age
Eyes: Round OU, [place] Conjunctivae and No Ptosis
HEENT: Anicteric and Moist Mucous Membranes
Neck: Full Range of Motion
Respiratory: No Dyspnea
Cardiac: No JVD
GI: Non-distended
Skin: Unremarkable
Extremities: No Clubbing, No Cyanosis and No Edema
Psych: Intact Judgement/Insight
Extended Neurological Exam
Mood & Affect: Mood Unremarkable and Affect Unremarkable
Attention Span & Concentration: Awake, Alert, Interactive and No Difficulty with 2 Step Request
Memory: Unremarkable
Tremor: Hand Tremor Absent and Head Tremor Absent
Speech: Quality Unremarkable and Quantity Unremarkable
Cranial Nerve II: Left Eye: Pupillary Size Unremarkable and Visual Vela Grossly Intact
Cranial Nerve II: Right Eye: Pupillary Size Unremarkable and Visual Vela Grossly Intact
Cranial Nerves III, IV, : Extraocular Movement: Extraocular Movement Full in all Directions
Cranial Nerve VII: Facial Symmetry: Normal Facial Symmetry
Cranial Nerve VIII: Hearing: Unremarkable Hearing to Normal Conversational Volume
Cranial Nerve XI: Shoulder Shrug: Unremarkable
Muscle Strength, Overall: Full in Upper Extremities
Muscle Bulk & Tone: Bulk Unremarkable and Tone Unremarkable
Pronator Drift: No Drift in Upper Extremities
Touch Sensation: Unremarkable
Coordination: Dwaopb-eabh-elepnq Testing Unremarkable
Data Reviewed
-
MRI Head: Ordered
Labs: Report Reviewed
Reviewed with: Physician and Nurse Practioner
Old Records: Summarized
--- NOTE | 2024-07-30 12:50 | PTCARENOTE ---
Per order, patient reconnected to tele upon arrival back to room from MRI.
--- NOTE | 2024-07-30 13:30 | CM ---
Addendum entered by Luzma Strickland RN 07/30/24 15:44:
Physiatry Consult pending.
Message from Dr Fajardo; Dr Ritchie will see the patient. Son would also like referrals to [facility] and [facility].
Referrals placed for [facility], [facility] and [facility].
Plan follow up after Physiatry Eval.
Plan follow up acute rehab referrals.
Original Note:
Patient with Hx ESRD on PD with Dx Suspected TIA. Brain MRI: consistent with acute infarction. PT/OT recommend HH. ST Eval; Recommending LITHOGRAPH[employer] GENERAL WORKER services for tx of mild cognitive linguistic impairment.
Spoke with patient's son Hossein;
he would like to speak with re; results MRI, and he is interested in [facility] ---> message to Dr Fajardo. She plans on speaking with [facility].
Son asking if his father can go to acute rehab due to his difficulty with ADLs and inability to do stairs at home. Explained to him physiatry consult would be up to MD, and that currently his father is at a supervision level per PT/OT, and has no
ST needs for dysphagia. Son aware probably not possible to go to SNF due to Peritoneal Dialysis needs.
Case discussed with [facility]iaison. They only accept PD patients at [facility].
Plan follow up if physiatry ordered.
--- NOTE | 2024-07-30 14:57 | W.PN.HOSP.TC ---
Today's Communication/Plan
-
CTA neck
PT OT
Rehab
Assessment / Plan
Assessment / Plan
79-year-old man with difficulty speaking and confusion on admission.
CT of the head-old 4 cm right lateral frontal infarct. Moderate diffuse cortical and cerebellar atrophy
EKG sinus rhythm with first AV block, Left anterior vascular block
Echo 07/13/2024-small LV. LVH-mild. EF 55 to 60%. Thickened mitral leaflets mitral annular calcification, trace MR. Mild sclerosis without stenosis
(An echo at [facility] in 2022 was notable for stage II diastolic dysfunction with a dilated left atrium, mild mitral regurgitation and ejection fraction 65%)
MRI of the brain-restricted diffusion within the posterior left occipital lobe as well as multiple small foci of restricted diffusion within the left parietal lobe consistent with acute infarction. Right frontal encephalomalacia with additional
mild atrophy and sequelae of mild small vessel ischemic disease.
MRA-lack of flow related enhancement within the proximal vertebral arteries bilaterally with reconstitution V3 segment on the left. Findings may be related to high-grade stenosis or possibly diminutive caliber of the vessel with slow flow.
Extensive atherosclerotic calcifications of the left carotid bifurcation with resultant high-grade stenosis of the proximal left ICA consider CTA of the neck.
Patient was taking 2.5 mg of Eliquis as it is expensive for him and this was leftover from his mother.
CVS: S1-S2 normal
Chest: CTA B/L
Abdomen: Soft, NT / Bowel sounds present
Extremities: No edema, normal pulses
WAREHOUSE HELPER: No dysphagia. No facial droop 5 x 5 strength bilateral upper extremity and lower extremity
# MRI with embolic stroke
Presented with difficulty speaking and confusion
MRI/MRA as above
Old CVA on the CT
Check CTA neck
Continue Eliquis- 5 mg twice daily per discussion with neurology
Neurology has been [id number]
Continue neurochecks
EEG without any seizures
# Coronary artery disease with history of CABG
# Paroxysmal atrial fibrillation-continue Eliquis and amiodarone.
# Chronic heart failure with reduced ejection fraction with recovered ejection fraction-continue Lasix
Echo 07/13/2024-small LV. LVH-mild. EF 55 to 60%. Thickened mitral leaflets mitral annular calcification, trace MR. Mild sclerosis without stenosis
(An echo at [facility] in 2022 was notable for stage II diastolic dysfunction with a dilated left atrium, mild mitral regurgitation and ejection fraction 65%)
# ESRD on peritoneal dialysis-nephrology consulted
# Hypertension-continue amlodipine and lisinopril
# Hyperlipidemia-continue statin
# Hypothyroidism-continue Synthroid
# Chronic anemia-likely secondary to kidney disease. Iron studies adequate.
# Cognitive Dysfunction per son
# Ex Smoker
# DVT prophylaxis-Eliquis
# Full code
Discussed with nursing at bed side
Discussed with neurology
D/W Nephrology
Communicated with Bobo Sahu at doesnt take PD pts
I have requested case management to send referrals to [facility] as well as [facility] rehab also.
Spoke to son and updated in detail regarding stroke, plan of further care.
Time spent more than 50 minutes
Anticipated Discharge: 24 - 48 hours
Subjective/Interval History
-
Date of Service: July 30, 2024
Objective Data
-
Labs:
Laboratory Results
07/30/24
05:37
Sodium 134 L
Potassium 4.0
Chloride 95 L
Carbon Dioxide 29
BUN 36 H
Creatinine 9.5 H*
Glucose 93
Calcium 8.5
Vital Signs:
Vital Signs
Temp Pulse Resp BP Pulse Ox
98.3 F 72 16 137/97 97
07/30/24 12:00 07/30/24 12:10 07/30/24 12:10 07/30/24 12:10 07/30/24 12:10
I&O
07/29/24 07/30/24 07/31/24
06:59 06:59 06:59
Intake Total 1280 / 1280 525 / 525
Output Total 300 / 300 100 / 100 0 / 0
Balance -300 / -300 1180 / 1180 525 / 525
--- NOTE | 2024-07-30 15:05 | EEG.RPT ---
Electroencephalogram Report
Recording
Date of EE07/30/24
Type of EEG: Routine
Length of EEG recordin minutes
Done with Video Recording: Yes
Patient Status: Inpatient
Recording Conditions: Awake, Drowsy and Asleep
Hyperventilation Performed: No
Photic Stimulation Performed: Yes
Report
LESS THAN 1 HOUR EEG REPORT
LESS THAN 1 HOUR EEG INTERPRETATION:
Mildly abnormal EEG for age due to diffuse bihemispheric slowing
CLINICAL CORRELATION:
This study was suggestive of mild diffuse cortical dysfunction without focal abnormality. No seizures were recorded.
Clinical correlation is advised.
METHODS:
A 21 channel digitized electroencephalogram (EEG) was performed at the bedside. The 10/20 international system of electrode placement was used with ECG and lateral/vertical eye movements recorded. Persyst QEEG monitoring was performed.
QUALITY OF STUDY:
Good
ELECTROENCEPHALOGRAPHER IMPRESSION(S):
Background
There was a low amplitude unorganized anterior-posterior voltage gradient of theta frequency
There were no significant asymmetries of background activity noted.
Sleep
Drowsiness present
Stage 2 sleep present
Photic Stimulation
Failed to activate the record.
ECG
Normal sinus rhythm
--- NOTE | 2024-07-30 15:25 | W.PN.NEPH.PH ---
Today's Communication / Plan
-
adjust PD script as noted in plan
ok for CT contrast study
Assessment/Plan
-
Impression:
CVA
End-stage renal disease on peritoneal dialysis
Hypertension
Paroxysmal atrial fibrillation
Hyperphosphatemia
Anemia
History of CABG
h/o bilat CEA at [facility]
Plan:
-PD flowsheet reviewed
-Will change PD prescription to every 4 hours exchanges with 1.5 and 2.5% alternate since no UF
-Can provide ROMI intermittently for anemia of chronic kidney disease
-Maintain current antihypertensives for hypertension which appears to be controlled
-Maintain calcium acetate with meals in regards to hyperphosphatemia
-Fluid restriction at 1200 cc daily, low sodium and potassium diet
-MRI shows CVA, further e/u per neuro, ok for contrast studies as he has no sig residual renal function
1.5%Q4hr exchange at 2Liter volumes-change to 1.5, 2.5 alternate
-
-
Date of Service: July 30, 2024
CC / HPI / ROS
-
Chief Complaint:
End-stage renal disease on peritoneal dialysis
History of Present Illness:
Peritoneal dialysis daily
Hemodynamically stable
no fever.
no UF on PD
wts are not accurate
Review of Systems:
No chest pain or shortness of breath
No focal neurological weakness, feels weak
Labs
-
Labs:
WBC 8.7 10^3/uL (4.8-10.8) 07/29/24 04:28
RBC 2.64 10^6/uL (4.70-6.10) L 07/29/24 04:28
Hgb 9.1 g/dL (13.0-18.0) L 07/29/24 04:28
Hct 26.1 % (39.0-52.0) L 07/29/24 04:28
Plt Count 300 10^3/uL (130-400) 07/29/24 04:28
Sodium 134 mmol/L (135-145) L 07/30/24 05:37
Potassium 4.0 mmol/L (3.5-5.1) 07/30/24 05:37
Chloride 95 mmol/L (98-107) L 07/30/24 05:37
Carbon Dioxide 29 mmol/L (22-30) 07/30/24 05:37
BUN 36 mg/dl (9-20) H 07/30/24 05:37
Creatinine 9.5 mg/dL (0.7-1.3) H* 07/30/24 05:37
eGFR 5.17 07/30/24 05:37
Glucose 93 mg/dl (70-99) 07/30/24 05:37
Calcium 8.5 mg/dl (8.4-10.2) 07/30/24 05:37
Albumin 3.3 g/dl (3.5-5.0) L 07/29/24 04:28
Physical Exam
-
Vital Signs:
Vital Signs
Temp Pulse Resp BP Pulse Ox
98.3 F 72 16 137/97 97
07/30/24 12:00 07/30/24 12:10 07/30/24 12:10 07/30/24 12:10 07/30/24 12:10
Cardiovascular:: Regular rate and rhythm
Respiratory:: Bilateral: CTA
Lung Excursion:: Normal
Abdomen:: Nontender and Soft
Extremity Edema:: None: Bilateral:
Gavin Catheter: No
--- NOTE | 2024-07-30 18:21 | PTCARENOTE ---
Patient AOx3. NIH stroke scale completed per order. PD completed per order. Patient ambulated to bathroom with mid assist. Call molina within reach, bed in lowest position, and wheels locked.
[2024-07-31] VITALS (12 sets, daily range): BP systolic 112–159; BP diastolic 51–73; PULSE 71–91; BMI 24.4
[2024-07-31] MEDS: SYNTHROID 150 MCG PO (05:53)
--- NOTE | 2024-07-31 06:26 | W.PN.HOSP.TC ---
Today's Communication/Plan
-
vascular eval
peritoneal dialysis as per Nephro
PT/OT
cont Eliquis
BP control
Assessment / Plan
Assessment / Plan
Physical Exam
General: no acute distress, appears comfortable a this time
HEENT: Normocephalic atraumatic, missing teeth noted
CVS: S1-S2 normal
Chest: CTA B/L
Abdomen: Soft, NT / Bowel sounds present
Extremities: No edema, normal pulses
RECORD PRESS SUPERVISOR: Awake Alert Conversant No facial droop 5 x 5 strength bilateral upper extremity and lower extremity
79-year-old man with difficulty speaking and confusion on admission.
CT of the head-old 4 cm right lateral frontal infarct. Moderate diffuse cortical and cerebellar atrophy
EKG sinus rhythm with first AV block, Left anterior vascular block
Echo 07/13/2024-small LV. LVH-mild. EF 55 to 60%. Thickened mitral leaflets mitral annular calcification, trace MR. Mild sclerosis without stenosis
(An echo at [facility] in 2022 was notable for stage II diastolic dysfunction with a dilated left atrium, mild mitral regurgitation and ejection fraction 65%)
MRI of the brain-restricted diffusion within the posterior left occipital lobe as well as multiple small foci of restricted diffusion within the left parietal lobe consistent with acute infarction. Right frontal encephalomalacia with additional
mild atrophy and sequelae of mild small vessel ischemic disease.
MRA-lack of flow related enhancement within the proximal vertebral arteries bilaterally with reconstitution V3 segment on the left. Findings may be related to high-grade stenosis or possibly diminutive caliber of the vessel with slow flow.
Extensive atherosclerotic calcifications of the left carotid bifurcation with resultant high-grade stenosis of the proximal left ICA consider CTA of the neck.
Patient was taking 2.5 mg of Eliquis as it is expensive for him and this was leftover from his mother.
# MRI with embolic stroke
Presented with difficulty speaking and confusion
MRI/MRA as above
Old CVA on the CT
CTA neck appreciated severe stenosis left internal proximal carotid artery, no flow seen w/in proximal vertebral arteries b/l w/ reconstitution of the v2 segments b/l at c4-5 lvl likely reflecting chronic high-grade stenosis and/or chronic short
segment dissections.
Vascular eval requested
Continue Eliquis 5 mg twice daily per discussion with neurology
Neurology consult appreciated
Continue neurochecks
EEG without any seizures
# Coronary artery disease with history of CABG
# Paroxysmal atrial fibrillation-continue Eliquis and amiodarone.
# Chronic heart failure with reduced ejection fraction with recovered ejection fraction-continue Lasix
Echo 07/13/2024-small LV. LVH-mild. EF 55 to 60%. Thickened mitral leaflets mitral annular calcification, trace MR. Mild sclerosis without stenosis
(An echo at [facility] in 2022 was notable for stage II diastolic dysfunction with a dilated left atrium, mild mitral regurgitation and ejection fraction 65%)
# ESRD on peritoneal dialysis-nephrology consulted
# Hypertension-continue amlodipine and lisinopril
# Hyperlipidemia-continue statin
# Hypothyroidism-continue Synthroid
# Chronic anemia-likely secondary to kidney disease. Iron studies adequate.
# Cognitive Dysfunction per son
# Ex Smoker
# DVT prophylaxis-Eliquis
# Full code
I spent a total of 50 minutes with the patient or on the floor. More than 50% of this time involved counseling and coordination of care.
Anticipated Discharge: 24 - 48 hours
Subjective/Interval History
-
Date of Service: July 31, 2024
No acute distress. Overall reports feeling well. Denies new acute issues at this time.
Objective Data
-
Vital Signs:
Vital Signs
Temp Pulse Resp BP Pulse Ox
98.6 F 80 16 129/52 94
07/31/24 03:21 07/31/24 06:00 07/30/24 17:35 07/31/24 04:00 07/31/24 04:00
I&O
07/29/24 07/30/2424
06:59 06:59 06:59
Intake Total 1280 / 1280 1585 / 1585
Output Total 300 / 300 100 / 100 0 / 0
Balance -300 / -300 1180 / 1180 1585 / 1585
[2024-07-31] MEDS: NEPHROCAP 1 CAPSULE PO (08:58)
[2024-07-31] MEDS: TUMS CHEWABLE TABLET 200 MG PO ×3 (08:58→21:05)
[2024-07-31] MEDS: VITAMIN B-12 1000 MCG PO (08:58)
[2024-07-31] MEDS: VITAMIN D3 (cholecalciferol) 25 MCG PO (08:59)
[2024-07-31] MEDS: COLACE 100 MG PO (08:59)
[2024-07-31] MEDS: PACERONE 200 MG PO (08:59)
[2024-07-31] MEDS: MAG-TAB SR 84 MG PO (08:59)
[2024-07-31] MEDS: LIPITOR 40 MG PO (08:59)
[2024-07-31] MEDS: ELIQUIS 5 MG PO ×2 (08:59→20:03)
[2024-07-31] MEDS: NORVASC 5 MG PO (09:00)
[2024-07-31] MEDS: ZESTRIL 40 MG PO (09:00)
--- NOTE | 2024-07-31 13:06 | W.PN.NEPH.PH ---
Today's Communication / Plan
-
cont PD as ordered
Assessment/Plan
-
Impression:
CVA
End-stage renal disease on peritoneal dialysis
Hypertension
Paroxysmal atrial fibrillation
Hyperphosphatemia
Anemia
History of CABG
h/o bilat CEA at [facility]
Plan:
-PD flowsheet reviewed
-cont PD prescription to every 4 hours exchanges with 1.5 and 2.5% alternate
wts are increasing, if did not improve tomorrow likely change all to 2.5
stable resp status on RA
-Can provide ROMI intermittently for anemia of chronic kidney disease
-Maintain current antihypertensives for hypertension which appears to be controlled
-Maintain calcium acetate with meals in regards to hyperphosphatemia
-Fluid restriction at 1200 cc daily, low sodium and potassium diet
-MRI shows CVA, CTA neck noted left carotid disease -neuro follows
Q4hr exchange at 2Liter volumes-change to 1.5, 2.5 alternate
UF 550cc
-
-
Date of Service: July 31, 2024
CC / HPI / ROS
-
Chief Complaint:
End-stage renal disease on peritoneal dialysis
History of Present Illness:
Peritoneal dialysis daily
Hemodynamically stable
no fever.
550cc UF on PD
wts are up likely not accurate
Review of Systems:
No chest pain or shortness of breath
No focal neurological weakness, feesl better today
more energetic
Labs
-
Labs:
WBC 8.7 10^3/uL (4.8-10.8) 07/29/24 04:28
RBC 2.64 10^6/uL (4.70-6.10) L 07/29/24 04:28
Hgb 9.1 g/dL (13.0-18.0) L 07/29/24 04:28
Hct 26.1 % (39.0-52.0) L 07/29/24 04:28
Plt Count 300 10^3/uL (130-400) 07/29/24 04:28
Sodium 134 mmol/L (135-145) L 07/30/24 05:37
Potassium 4.0 mmol/L (3.5-5.1) 07/30/24 05:37
Chloride 95 mmol/L (98-107) L 07/30/24 05:37
Carbon Dioxide 29 mmol/L (22-30) 07/30/24 05:37
BUN 36 mg/dl (9-20) H 07/30/24 05:37
Creatinine 9.5 mg/dL (0.7-1.3) H* 07/30/24 05:37
eGFR 5.17 07/30/24 05:37
Glucose 93 mg/dl (70-99) 07/30/24 05:37
Calcium 8.5 mg/dl (8.4-10.2) 07/30/24 05:37
Albumin 3.3 g/dl (3.5-5.0) L 07/29/24 04:28
Physical Exam
-
Vital Signs:
Vital Signs
Temp Pulse Resp BP Pulse Ox
98.4 F 69 16 151/60 96
07/31/24 07:55 07/31/24 08:05 07/30/24 17:35 07/31/24 08:05 07/31/24 10:13
Cardiovascular:: Regular rate and rhythm
Respiratory:: Bilateral: CTA
Lung Excursion:: Normal
Abdomen:: Nontender and Soft
Extremity Edema:: None: Bilateral:
Gavin Catheter: No
--- NOTE | 2024-07-31 14:56 | W.PN.NEURO.1 ---
Today's Communication / Plan
-
Agree with consultation to vascular surgery service for remediation of symptomatic left carotid artery narrowing which in part produced the patient's stroke
Continue home apixaban
Continue home atorvastatin 40mg daily
Neuro Assessment/Plan
Assessment
CT Head 07/28/24: There are no acute intracranial abnormalities. There is old 4 cm right lateral frontal infarct. There is moderate diffuse cortical and cerebellar atrophy.
MRI of brain demonstrated acute left occipital and left parietal ischemic strokes with reaffirmation of right frontal chronic stroke
EEG failed to indicate epileptiform activity
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
Transient confusion/nonsensical speech; due to acute ischemic stroke.
Patient has the following risk factors for their symptoms: Hypothyroidism, ESRD, old stroke, Afib, HTN, HLD, age
Plan
Recommendations:
Agree with consultation to vascular surgery service for remediation of symptomatic left carotid artery narrowing which in part produced the patient's stroke
Continue home apixaban
Continue home atorvastatin 40mg daily
Will follow peripherally
Subjective/Objective
Subjective Data
Date of Service: July 31, 2024
Objective Data
Vital Signs
Temp Pulse Resp BP Pulse Ox
36.9 C 69 16 151/60 96
07/31/24 07:55 07/31/24 08:05 07/30/24 17:35 07/31/24 08:05 07/31/24 10:13
Lab Results
07/29/24 04:28
07/30/24 05:37
Sodium 134 mmol/L (135-145) L 07/30/24 05:37
Potassium 4.0 mmol/L (3.5-5.1) 07/30/24 05:37
BUN 36 mg/dl (9-20) H 07/30/24 05:37
Glucose 93 mg/dl (70-99) 07/30/24 05:37
Calcium 8.5 mg/dl (8.4-10.2) 07/30/24 05:37
LDL Cholesterol, Calc 62 mg/dl 07/29/24 04:28
Vitamin B12 > 1000 pg/ml (239-931) H 07/29/24 04:28
Patient Allergies
No Known Allergies Allergy (Verified 07/28/24 14:10)
Past History
Past History
ED Past Medical History: CVA (Chronic right frontal, acute left occipital and frontal), HTN, Hypercholesterolemia and Other (Renal failure/peritoneal dialysis, left internal carotid artery stenosis)
ED Past Surgical History: Other (Dialysis catheter)
Social History
Tobacco: Non-smoker
Alcohol: None
Family History
Family History: Other (Reviewed and noncontributory)
Medications
-
Medications:
Generic Name Dose Route Start Last Admin
Trade Name Freq PRN Reason Stop Dose Admin
Amiodarone HCl 200 mg 07/29/24 08:00 07/31/24 08:59
Amiodarone 200 Mg Tablet PO 08/26/24 07:59 200 mg
DAILY SHARMAINE Administration
Amlodipine Besylate 5 mg 07/29/24 08:00 07/31/24 09:00
Amlodipine 5 Mg Tablet PO 08/26/24 07:59 5 mg
DAILY SHARMAINE Administration
Apixaban 5 mg 07/29/24 20:00 07/31/24 08:59
Apixaban (Eliquis) 5 Mg Tablet PO 08/26/24 19:59 5 mg
BID SHARMAINE Administration
Atorvastatin Calcium 40 mg 07/29/24 08:00 07/31/24 08:59
Atorvastatin (Lipitor) 40 Mg Tablet PO 08/26/24 07:59 40 mg
DAILY SHARMAINE Administration
Calcium Carbonate 200 mg 07/28/24 22:00 07/31/24 08:58
Calcium Antacid 200 Mg (Calcium Carbonate 500 Mg) Chew Tablet PO 08/25/24 21:59 200 mg
TID SHARMAINE Administration
Cholecalciferol 25 mcg 07/29/24 08:00 07/31/24 08:59
Cholecalciferol (Vitamin D3) 25 Mcg Tablet (1,000 Units) PO 08/26/24 07:59 25 mcg
DAILY SHARMAINE Administration
Cyanocobalamin 1,000 mcg 07/29/24 08:00 07/31/24 08:58
Cyanocobalamin 1,000 Mcg Tablet PO 08/26/24 07:59 1,000 mcg
DAILY SHARMAINE Administration
Docusate Sodium 100 mg 07/29/24 08:00 07/31/24 08:59
Docusate Sodium 100 Mg Capsule PO 08/26/24 07:59 100 mg
DAILY SHARMAINE Administration
Levothyroxine Sodium 150 mcg 07/29/24 06:00 07/31/24 05:53
Levothyroxine 150 Mcg Tablet PO 08/26/24 05:59 150 mcg
DAILY @ 0600 SHARMAINE Administration
Lisinopril 40 mg 07/29/24 08:00 07/31/24 09:00
Lisinopril 20 Mg Tablet PO 08/26/24 07:59 40 mg
DAILY SHARMAINE Administration
Magnesium 84 mg 07/29/24 08:00 07/31/24 08:59
Magnesium Lactate 84 Mg Tablet PO 08/26/24 07:59 84 mg
DAILY SHARMAINE Administration
Sodium Chloride 0 flush 07/28/24 21:00
Sodium Chloride 0.9% (Flush) Syringe IV 08/25/24 20:59
PER PROTOCOL SHARMAINE
Vitamin B Complex/Vit C/Folic Acid 1 capsule 07/29/24 08:00 07/31/24 08:58
Renal Cap (Nephrocap) Capsule PO 08/26/24 07:59 1 capsule
DAILY SHARMAINE Administration
--- NOTE | 2024-07-31 15:27 | PTCARENOTE ---
Started PD exchange one hour late due to patient ambulating with PT in hallway and patient had to use bathroom. Patient feeling good today, no complaints. Vital signs stable.
[2024-08-01] VITALS (10 sets, daily range): BP systolic 119–165; BP diastolic 56–131; PULSE 68–77; BMI 24.1
[2024-08-01] MEDS: SYNTHROID 150 MCG PO (05:23)
[2024-08-01 05:45] LABS: Hematocrit 25.5 % (39.0-52.0); Hemoglobin 8.8 g/dL (13.0-18.0); Mean Corp Hgb Conc. 34.5 g/dL (33.0-37.0); Mean Corpuscular Hgb 35.5 pg (27.0-31.0); Mean Corpuscular Volume 102.8 fL (80.0-94.0); Mean Platelet Volume 9.7 fL (7.4-10.4); Platelet Count 222 10^3/uL (130-400); Red Blood Cell Count 2.48 10^6/uL (4.70-6.10); Red Cell Dist. Width 16.5 % (11.5-14.5); White Blood Cell Count 9.3 10^3/uL (4.8-10.8)
[2024-08-01 06:12] LABS: Blood Urea Nitrogen 38 mg/dl (9-20); Calcium 8.9 mg/dl (8.4-10.2); Carbon Dioxide 30 mmol/L (22-30); Chloride 96 mmol/L (98-107); Estimated Creatinine Clearance 6 ml/min; Glucose 98 mg/dl (70-99); Potassium 3.9 mmol/L (3.5-5.1); Sodium 135 mmol/L (135-145)
--- NOTE | 2024-08-01 07:13 | W.PN.HOSP.TC ---
Today's Communication/Plan
-
Eliquis switched to hep gtt in preparation for vascular intervention
cont PD as per Nephro
PT/OT
BP control
Assessment / Plan
Assessment / Plan
Physical Exam
General: no acute distress, appears comfortable a this time
HEENT: Normocephalic atraumatic, missing teeth noted b/l carotid bruit
CVS: S1-S2 normal
Chest: CTA B/L
Abdomen: Soft, NT / Bowel sounds present
Extremities: No edema, normal pulses
FIELD INTERVIEWER: Awake Alert Conversant No facial droop 5 x 5 strength bilateral upper extremity and lower extremity
79-year-old man with difficulty speaking and confusion on admission.
CT of the head-old 4 cm right lateral frontal infarct. Moderate diffuse cortical and cerebellar atrophy
EKG sinus rhythm with first AV block, Left anterior vascular block
Echo 07/13/2024-small LV. LVH-mild. EF 55 to 60%. Thickened mitral leaflets mitral annular calcification, trace MR. Mild sclerosis without stenosis
(An echo at [facility] in 2022 was notable for stage II diastolic dysfunction with a dilated left atrium, mild mitral regurgitation and ejection fraction 65%)
MRI of the brain-restricted diffusion within the posterior left occipital lobe as well as multiple small foci of restricted diffusion within the left parietal lobe consistent with acute infarction. Right frontal encephalomalacia with additional
mild atrophy and sequelae of mild small vessel ischemic disease.
MRA-lack of flow related enhancement within the proximal vertebral arteries bilaterally with reconstitution V3 segment on the left. Findings may be related to high-grade stenosis or possibly diminutive caliber of the vessel with slow flow.
Extensive atherosclerotic calcifications of the left carotid bifurcation with resultant high-grade stenosis of the proximal left ICA consider CTA of the neck.
Patient was taking 2.5 mg of Eliquis as it is expensive for him and this was leftover from his mother.
# MRI with embolic stroke
Presented with difficulty speaking and confusion
MRI/MRA as above
Old CVA on the CT
CTA neck appreciated severe stenosis left internal proximal carotid artery, no flow seen w/in proximal vertebral arteries b/l w/ reconstitution of the v2 segments b/l at c4-5 lvl likely reflecting chronic high-grade stenosis and/or chronic short
segment dissections.
Vascular eval appreciated tentatively planned for TCAR vs carotid stent placement ManinderpanteraPorter converted to hep gtt in preparation for procedure
Cardio eval appreciated overall cardiac preoperative risk moderate high but not prohibitive, no additional cardiac testing recommended
Neurology consult appreciated
Continue neurochecks
EEG without any seizures
# Coronary artery disease with history of CABG
# Paroxysmal atrial fibrillation-continue Eliquis and amiodarone.
# Chronic heart failure with reduced ejection fraction with recovered ejection fraction-continue Lasix
Echo 07/13/2024-small LV. LVH-mild. EF 55 to 60%. Thickened mitral leaflets mitral annular calcification, trace MR. Mild sclerosis without stenosis
(An echo at [facility] in 2022 was notable for stage II diastolic dysfunction with a dilated left atrium, mild mitral regurgitation and ejection fraction 65%)
# ESRD on peritoneal dialysis-nephrology consulted
# Hypertension-continue amlodipine and lisinopril
# Hyperlipidemia-continue statin
# Hypothyroidism-continue Synthroid
# Chronic anemia-likely secondary to kidney disease. Iron studies adequate.
# Cognitive Dysfunction per son
# Ex Smoker
# DVT prophylaxis- Hep gtt
# Full code
discussed with patient and patient's son Hossein
I spent a total of 40 minutes with the patient or on the floor. More than 50% of this time involved counseling and coordination of care.
Anticipated Discharge: > 48 hours
Subjective/Interval History
-
Date of Service: August 01, 2024
Seen and examined at bedside in no acute distress resting comfortably in bed. overall reports feeling well. denies new acute issues at this time.
Objective Data
-
Labs:
Laboratory Results
08/01/24
05:21
WBC 9.3
Hgb 8.8 L
Hct 25.5 L
Plt Count 222 D
Sodium 135
Potassium 3.9
Chloride 96 L
Carbon Dioxide 30
BUN 38 H
Creatinine 9.3 H*
Glucose 98
Calcium 8.9
Vital Signs:
Vital Signs
Temp Pulse Resp BP Pulse Ox
97.9 F 66 16 139/66 96
08/01/24 05:22 08/01/24 05:24 07/31/24 19:30 08/01/24 04:00 08/01/24 04:00
I&O
07/31/24 08/01/24 08/02/24
06:59 06:59 06:59
Intake Total 1585 / 1585 1425 / 1425
Output Total 0 / 0 950 / 950
Balance 1585 / 1585 475 / 475
--- NOTE | 2024-08-01 07:28 | CON.VAS ---
Consultation
Consultation Request
Reason for Consultation: symptomatic LAZARO
Medical History
-
Chief Complaint: TIA
History of Present Illness:
79 yo M on peritoneal dialysis was in his usual state of health when his PD nurse noted on 07/24 he had garbled speech. He denies any weakness, numbness, or vision changes at that time. His symptoms resolved but work up has showed left sided CVA on
MRI and significant left carotid lesion. Patient currently has no complaints and says he has no residual deficits. Takes Eliquis for afib and says he has not missed any doses. History of bialteral CEAs at a hospital in [place] many years ago.
Past Medical History
Past Medical History: CAD, CHF, CVA, Hypothyroidism and Renal Failure
Past Surgical History: Cardiac and Other (bilateral CEA)
Social History
Tobacco: Former Smoker
Alcohol: None
Family History
Family History: Reviewed & Not Pertinent
Allergies / Home Medications
Allergy/AdvReac Type Severity Reaction Status Date / Time
No Known Allergies Allergy Verified 07/28/24 14:10
�Medication �Instructions �Recorded �Confirmed �Type
amiodarone 200 mg tablet 200 mg PO DAILY Arrhythmia 07/28/24 07/28/24 History
amlodipine 5 mg tablet 5 mg PO DAILY Blood Pressure 07/28/24 07/28/24 History
apixaban 2.5 mg tablet (Eliquis) 2.5 mg PO DAILY Blood Clot 07/28/24 07/28/24 History
Prevention/Tx
atorvastatin 40 mg tablet 40 mg PO DAILY High Cholesterol 07/28/24 07/28/24 History
calcium carbonate 500 mg PO TID Gastrointestinal 07/28/24 07/28/24 History
Issue
cholecalciferol (vitamin D3) 25 25 mcg PO DAILY Supplement 07/28/24 07/28/24 History
mcg (1,000 unit) tablet (Vitamin
D3)
cyanocobalamin (vitamin B-12) 1,000 mcg PO DAILY Supplement 07/28/24 07/28/24 History
1,000 mcg tablet
docusate sodium 100 mg capsule 100 mg PO DAILY Constipation 07/28/24 07/28/24 History
(Colace)
levothyroxine 150 mcg tablet 150 mcg PO DAILY Thyroid 07/28/24 07/28/24 History
lisinopril 20 mg tablet 40 mg PO DAILY Blood Pressure 07/28/24 07/28/24 History
magnesium oxide 400 mg (241.3 mg 400 mg PO DAILY Supplement 07/28/24 07/28/24 History
magnesium) tablet
vitamin B complex-vitamin C-folic 1 tab PO DAILY Supplement 07/28/24 07/28/24 History
acid 800 mcg chewable tablet
(Dialyvite 800)
Review of Systems
-
History Source: Patient
All other systems: Negative unless noted
Physical Exam
Vital Signs
Temp Pulse Resp BP Pulse Ox
97.9 F 66 16 139/66 96
08/01/24 05:22 08/01/24 05:24 07/31/24 19:30 08/01/24 04:00 08/01/24 04:00
Lab Results
08/01/24 05:21
08/01/24 05:21
Physical Exam
General: Well Developed
HEENT: Normocephalic
Respiratory: Clear
Cardiac: Irregular Rhythm
Breast: Deferred by me
GI: Soft and Other (PD catheter)
Skin: Warm and Other (bilateral well healed CEA incisions)
Neuro: AO x 3 and Other (4+ strength in RUE, 5/5 in all other extremities, CN II-XII in tact)
Psych: Calm
Assessment / Plan
-
79 yo M with symptomatic left carotid artery stenosis
-Agree with symptomatic nature of left carotid artery lesion and this warrants intervention. He will likely need a TCAR or transfem stent due to prior CEA.
-Please consult cardiology for risk stratification prior to OR
-Due to the need for cardiology work up, intervention will likely not take place until Friday at the earliest. He will need to be transitioned from Eliquis to heparin prior to surgery
Data Reviewed
-
CT Scan: Image Personally Visualized and interpreted (Left ICA significant lesion with soft and calcified plaque, at the level of the proximal C3 vertebral body. Distance from bulb to clavicle ~5.5 cm)
Medical Tests (Nuc Med, Echo etc): Image Personally Visualized and interpreted (MRI with left sided CVAs in MCA distribution)
--- NOTE | 2024-08-01 08:21 | CON.CAR ---
Consultation
Consultation Request
Date/Time Consultation Requested: August 01, 2024
Date/Time Consultation Performed: August 01, 2024
Requesting Provider: Vascular surgery
Performing Provider: Dr. Tristian Portillo
Reason for Consultation: Preoperative cardiac risk assessment
Medical History
-
Chief Complaint: Slurred speech
History of Present Illness:
79-year-old man with a past medical history significant for coronary artery disease with remote CABG x 2 in 1989, PCI, recovered cardiomyopathy with most recent LVEF of 65%, atrial fibrillation and on chronic oral anticoagulation with Eliquis,
abdominal aortic aneurysm, hypertension, hyperlipidemia, end-stage renal disease on peritoneal dialysis, orthostatic hypotension, mixed lipidemia. His peritoneal dialysis nurse noted that he had garbled speech. This was on July 24, 2024.
Symptoms had resolved subsequently. There are no residual symptoms. Evaluation has now demonstrated left-sided CVA and an MRI showing significant left carotid disease. He has been seen by vascular surgery who has recommended surgical
intervention. Of note he does have a history of bilateral carotid endarterectomies at a hospital in [place] many years ago.
He was seen as a new patient in the cardiology office June 29, 2024 noting that he had been feeling well overall, no chest pain or shortness of breath. No exertional symptoms.
Today he tells me there continues to be an absence of exertional symptoms. He has no chest pain. He has no shortness of breath. The discomfort he has been experiencing it is right lower quadrant.
He has had no dizziness near syncope or syncope.
Echocardiogram finds LVEF 55 to 60%, normal right heart with normal pulmonary artery pressures, no significant valvular disease. Compared to prior echocardiogram report from [facility] in 2022, there is no significant change.
Past medical history:
Carotid arterial disease with remote bilateral carotid endarterectomies in the past
Coronary artery disease with remote coronary bypass grafting surgery x 2 in 1989, PCI prior to CABG. He remains on aspirin 81 mg
Abdominal aortic aneurysm
Atrial fibrillation, on amiodarone for rhythm control
Chronic anticoagulation with Eliquis for atrial fibrillation related thromboembolic risk reduction
End-stage renal disease on peritoneal dialysis
Hypertension treated with amlodipine as well as lisinopril and metoprolol succinate
Dyslipidemia treated with atorvastatin and goal LDL less than 70
Orthostatic hypotension
Balance disorder
Anemia
Hypothyroidism
Social History
Tobacco: Former Smoker
Alcohol: None
Drug: None
Employment: Retired
Family History
Family History: Reviewed & Not Pertinent
Allergies / Home Medications
Allergy/AdvReac Type Severity Reaction Status Date / Time
No Known Allergies Allergy Verified 07/28/24 14:10
�Medication �Instructions �Recorded �Confirmed �Type
amiodarone 200 mg tablet 200 mg PO DAILY Arrhythmia 07/28/24 07/28/24 History
amlodipine 5 mg tablet 5 mg PO DAILY Blood Pressure 07/28/24 07/28/24 History
apixaban 2.5 mg tablet (Eliquis) 2.5 mg PO DAILY Blood Clot 07/28/24 07/28/24 History
Prevention/Tx
atorvastatin 40 mg tablet 40 mg PO DAILY High Cholesterol 07/28/24 07/28/24 History
calcium carbonate 500 mg PO TID Gastrointestinal 07/28/24 07/28/24 History
Issue
cholecalciferol (vitamin D3) 25 25 mcg PO DAILY Supplement 07/28/24 07/28/24 History
mcg (1,000 unit) tablet (Vitamin
D3)
cyanocobalamin (vitamin B-12) 1,000 mcg PO DAILY Supplement 07/28/24 07/28/24 History
1,000 mcg tablet
docusate sodium 100 mg capsule 100 mg PO DAILY Constipation 07/28/24 07/28/24 History
(Colace)
levothyroxine 150 mcg tablet 150 mcg PO DAILY Thyroid 07/28/24 07/28/24 History
lisinopril 20 mg tablet 40 mg PO DAILY Blood Pressure 07/28/24 07/28/24 History
magnesium oxide 400 mg (241.3 mg 400 mg PO DAILY Supplement 07/28/24 07/28/24 History
magnesium) tablet
vitamin B complex-vitamin C-folic 1 tab PO DAILY Supplement 07/28/24 07/28/24 History
acid 800 mcg chewable tablet
(Dialyvite 800)
Review of Systems
-
History Source: Patient
All other systems: Negative unless noted
Constitutional: Fatigue
EENT: No Symptoms
Respiratory: No Symptoms
Cardiac: No Symptoms
Abdomen/GI: No Symptoms
: No Symptoms
Musculoskeletal: No Symptoms
Skin: No Symptoms
Physical Exam
Vital Signs
Temp Pulse Resp BP Pulse Ox
97.9 F 66 16 139/66 96
08/01/24 05:22 08/01/24 05:24 07/31/24 19:30 08/01/24 04:00 08/01/24 04:00
Lab Results
08/01/24 05:21
08/01/24 05:21
Physical Exam
General: Well Developed, Well Nourished, No Apparent Distress and Comfortable
HEENT: Normocephalic, Anicteric and Moist Mucous Membranes
Respiratory: Clear and Non Labored Respirations
Cardiac: S1/S2, Regular Rhythm and Murmur (There is a grade 1/6 apical holosystolic murmur and no rubs. PMI normally placed.)
Breast: Deferred by me
GI: Soft, Non Tender, Non Distended and Normal Bowel Sounds
Rectal: Deferred by Provider
Musculoskeletal: No Clubbing, No Cyanosis and No Edema
Skin: Warm and Dry
Neuro: Awake, Alert, Oriented and AO x 3
Psych: Calm
Impression / Plan
-
Assessment:
Recent TIA/CVA
Carotid arterial disease with remote bilateral carotid endarterectomies in the past
Coronary artery disease with remote coronary bypass grafting surgery x 2 in 1989, PCI prior to CABG. He remains on aspirin 81 mg
Abdominal aortic aneurysm
Atrial fibrillation, on amiodarone for rhythm control
Chronic anticoagulation with Eliquis for atrial fibrillation related thromboembolic risk reduction
End-stage renal disease on peritoneal dialysis
Hypertension treated with amlodipine as well as lisinopril and metoprolol succinate
Dyslipidemia treated with atorvastatin and goal LDL less than 70
Orthostatic hypotension
Balance disorder
Anemia
Hypothyroidism
07/13/24 Echocardiogram finds LVEF 55 to 60%, normal right heart with normal pulmonary artery pressures, no significant valvular disease. Compared to prior echocardiogram report from [facility] in 2022, there is no significant change.
EKG July 28, 2024 finds sinus rhythm with first-degree AV delay left anterior fascicular block and cannot exclude inferior wall myocardial infarction age undetermined
Recommendations:
Vascular surgery has recommended cardiac preoperative risk assessment prior to planned surgical intervention
He was seen as a new patient in the cardiology office June 29, 2024 noting that he had been feeling well overall, no chest pain or shortness of breath. No exertional symptoms. And he is still without exertional symptoms. No symptoms to
suggest unstable angina. No symptoms or signs to suggest decompensated heart failure.
He is planned for TCAR or transfem stent due to prior CEA.
Intrinsic surgical risk (major vascular procedure) is moderate-high and patient's individual risk is moderate-high related to recent CVA/TIA, chronic kidney disease /end-stage renal disease on peritoneal dialysis, poor functional status, vascular
disease, h/o CAD, AF, severe anemia.
I would not consider him as very high cardiac risk as he does not have any of the following: recent WI (prior 60 days), unstable angina, decompensated heart failure, high-grade arrhythmias, or hemodynamically important valvular heart disease
Overall cardiac risk is moderate to high but does not preclude moving towards planned vascular intervention
Any additional cardiac testing is unlikely to provide beneficial restratification
We will continue to follow along with you.
Data Reviewed
-
EKG: Tracing Personally Visualized and interpreted
Radiology: Image Personally Visualized and interpreted
MRI: Report Reviewed by me
Medical Tests (Nuc Med, Echo etc): Report Reviewed by me
Labs: Labs Reviewed by me
Old Records: Reviewed
Total Time Spent with Patient (in minutes): 80
[2024-08-01] MEDS: TUMS CHEWABLE TABLET 200 MG PO ×3 (09:11→21:08)
[2024-08-01] MEDS: VITAMIN D3 (cholecalciferol) 25 MCG PO (09:11)
[2024-08-01] MEDS: ZESTRIL 40 MG PO (09:11)
[2024-08-01] MEDS: NORVASC 5 MG PO (09:11)
[2024-08-01] MEDS: PACERONE 200 MG PO (09:11)
[2024-08-01] MEDS: ELIQUIS 5 MG PO (09:12)
[2024-08-01] MEDS: NEPHROCAP 1 CAPSULE PO (09:12)
[2024-08-01] MEDS: COLACE 100 MG PO (09:12)
[2024-08-01] MEDS: MAG-TAB SR 84 MG PO (09:12)
[2024-08-01] MEDS: VITAMIN B-12 1000 MCG PO (09:12)
[2024-08-01] MEDS: LIPITOR 40 MG PO (09:12)
--- NOTE | 2024-08-01 11:54 | W.PN.NEPH.PH ---
Today's Communication / Plan
-
cont same PD script
Assessment/Plan
-
Impression:
CVA
End-stage renal disease on peritoneal dialysis
Hypertension
Paroxysmal atrial fibrillation
Hyperphosphatemia
Anemia
History of CABG
h/o bilat CEA at [place]
Plan:
-PD flowsheet reviewed
-cont PD prescription to every 4 hours exchanges with 1.5 and 2.5% alternate
wts are increasing, if did not improve tomorrow likely change all to 2.5
stable resp status on RA
-Can provide ROMI intermittently for anemia of chronic kidney disease
-Maintain current antihypertensives for hypertension which appears to be controlled
-Maintain calcium acetate with meals in regards to hyperphosphatemia
-Fluid restriction at 1200 cc daily, low sodium and potassium diet
-MRI shows CVA, CTA neck noted left carotid disease -neuro and vasc follows
potential OR on Friday
Q4hr exchange at 2Liter volumes-change to 1.5, 2.5 alternate
UF 400cc
if wt increases likely change to 2.5 all
-
-
Date of Service: August 01, 2024
CC / HPI / ROS
-
Chief Complaint:
End-stage renal disease on peritoneal dialysis
History of Present Illness:
Peritoneal dialysis daily
Hemodynamically stable
no fever.
400cc UF on PD
wts are slightly down
Review of Systems:
No chest pain or shortness of breath
No focal neurological weakness
no n/v
Labs
-
Labs:
WBC 9.3 10^3/uL (4.8-10.8) 08/01/24 05:21
RBC 2.48 10^6/uL (4.70-6.10) L 08/01/24 05:21
Hgb 8.8 g/dL (13.0-18.0) L 08/01/24 05:21
Hct 25.5 % (39.0-52.0) L 08/01/24 05:21
Plt Count 222 10^3/uL (130-400) D 08/01/24 05:21
Sodium 135 mmol/L (135-145) 08/01/24 05:21
Potassium 3.9 mmol/L (3.5-5.1) 08/01/24 05:21
Chloride 96 mmol/L (98-107) L 08/01/24 05:21
Carbon Dioxide 30 mmol/L (22-30) 08/01/24 05:21
BUN 38 mg/dl (9-20) H 08/01/24 05:21
Creatinine 9.3 mg/dL (0.7-1.3) H* 08/01/24 05:21
eGFR 5.30 08/01/24 05:21
Glucose 98 mg/dl (70-99) 08/01/24 05:21
Calcium 8.9 mg/dl (8.4-10.2) 08/01/24 05:21
Albumin 3.3 g/dl (3.5-5.0) L 07/29/24 04:28
Physical Exam
-
Vital Signs:
Vital Signs
Temp Pulse Resp BP Pulse Ox
98.0 F 59 16 121/56 96
08/01/24 07:45 08/01/24 09:11 07/31/24 19:30 08/01/24 09:11 08/01/24 04:00
Cardiovascular:: Regular rate and rhythm
Respiratory:: Bilateral: CTA
Lung Excursion:: Normal
Abdomen:: Nontender and Soft
Extremity Edema:: None: Bilateral:
Gavin Catheter: No
[2024-08-01 12:53] LABS: APTT 41.6 Sec (23.4-35.0)
[2024-08-01] MEDS: HEPARIN 25000 UNITS/250 ML IV (13:25)
--- NOTE | 2024-08-01 16:29 | PTCARENOTE ---
Rec'd pt this AM. ambulated in [place] with PT. tele removed per protocol. PD exhanges as ordered. tolerating well. vital signs stable. heparin drip started per protocol.
--- NOTE | 2024-08-01 19:45 | PTCARENOTE ---
Received pt from day shift. Pt aaox3. VSS. NIH zero. Heparin gtt runing at 800 mL/hr. SCDs put on patient and hygiene completed. Pt resting in bed with call molina in reach.
--- NOTE | 2024-08-01 19:45 | PTCARENOTE ---
Received pt from day shift. Pt aaox3. VSS. NIH zero. Heparin gtt running at 800 u/hr. SCDs put on patient and hygiene completed. Pt resting in bed with call molina in reach.
[2024-08-01 20:07] LABS: APTT 89.2 Sec (23.4-35.0)
[2024-08-02] VITALS (12 sets, daily range): BP systolic 99–160; BP diastolic 51–90; PULSE 78–85; BMI 24.0
[2024-08-02 03:46] LABS: Hematocrit 23.4 % (39.0-52.0); Mean Corp Hgb Conc. 34.2 g/dL (33.0-37.0); Mean Corpuscular Hgb 33.3 pg (27.0-31.0); Mean Corpuscular Volume 97.5 fL (80.0-94.0); Mean Platelet Volume 9.9 fL (7.4-10.4); Platelet Count 237 10^3/uL (130-400); Red Cell Dist. Width 16.5 % (11.5-14.5); White Blood Cell Count 9.9 10^3/uL (4.8-10.8)
[2024-08-02 04:03] LABS: APTT 84.9 Sec (23.4-35.0)
[2024-08-02 04:25] LABS: Blood Urea Nitrogen 43 mg/dl (9-20); Calcium 8.7 mg/dl (8.4-10.2); Carbon Dioxide 30 mmol/L (22-30); Chloride 95 mmol/L (98-107); Estimated Creatinine Clearance 6 ml/min; Glucose 97 mg/dl (70-99); Magnesium 1.8 mg/dl (1.6-2.3); Potassium 4.1 mmol/L (3.5-5.1); Sodium 136 mmol/L (135-145); eGFR 5.82
[2024-08-02] MEDS: SYNTHROID 150 MCG PO (06:11)
--- NOTE | 2024-08-02 06:29 | W.PN.HOSP.TC ---
Today's Communication/Plan
-
PT/OT
discontinue hep gtt, transition back to Eliquis
cont PD as per Nephro
discharge planning
Assessment / Plan
Assessment / Plan
Physical Exam
General: no acute distress, appears comfortable at this time
HEENT: Normocephalic atraumatic, missing teeth noted b/l carotid bruit
CVS: S1-S2 normal
Chest: CTA B/L
Abdomen: Soft, NT / Bowel sounds present
Extremities: No edema, normal pulses
ENVIRONMENTAL SAFETY SPECIALIST: Awake Alert Conversant No facial droop 5 x 5 strength bilateral upper extremity and lower extremity
79-year-old man with difficulty speaking and confusion on admission.
CT of the head-old 4 cm right lateral frontal infarct. Moderate diffuse cortical and cerebellar atrophy
EKG sinus rhythm with first AV block, Left anterior vascular block
Echo 07/13/2024-small LV. LVH-mild. EF 55 to 60%. Thickened mitral leaflets mitral annular calcification, trace MR. Mild sclerosis without stenosis
(An echo at [facility] in 2022 was notable for stage II diastolic dysfunction with a dilated left atrium, mild mitral regurgitation and ejection fraction 65%)
MRI of the brain-restricted diffusion within the posterior left occipital lobe as well as multiple small foci of restricted diffusion within the left parietal lobe consistent with acute infarction. Right frontal encephalomalacia with additional
mild atrophy and sequelae of mild small vessel ischemic disease.
MRA-lack of flow related enhancement within the proximal vertebral arteries bilaterally with reconstitution V3 segment on the left. Findings may be related to high-grade stenosis or possibly diminutive caliber of the vessel with slow flow.
Extensive atherosclerotic calcifications of the left carotid bifurcation with resultant high-grade stenosis of the proximal left ICA consider CTA of the neck.
Patient was taking 2.5 mg of Eliquis as it is expensive for him and this was leftover from his mother.
# MRI with embolic stroke
Presented with difficulty speaking and confusion
MRI/MRA as above
Old CVA on the CT
Continue neurochecks
EEG without any seizures
CTA neck appreciated severe stenosis left internal proximal carotid artery, no flow seen w/in proximal vertebral arteries b/l w/ reconstitution of the v2 segments b/l at c4-5 lvl likely reflecting chronic high-grade stenosis and/or chronic short
segment dissections.
Vascular eval appreciated patient potentially may benefit TCAR vs stent placement, question as to whether Eliquis may be held for procedure and during the follow up 1 mo dual antiplatelet treatment vs attempting triple therapy w asa plavix Eliquis
Cardio eval appreciated overall cardiac preoperative risk moderate high but not prohibitive, no additional cardiac testing recommended, holding Eliquis as above however not recommended
Per vascular discussion with Neurology, stroke likely watershed from hypotension, expedited surgery subsequently not required, vascular would also favor not bolusing with plavix since Eliquis can not be held as above, patient subsequently started on
plavix 75mg daily with plans for outpt TCAR next week Fri, cleared to discontinue hep gtt and resume Eliquis.
PAD
US Periph Art LOWER Ext w CAMRON appreciated
1. Noncompressible arteries bilaterally, suggestive of medial calcinosis and/or arterial noncompliance, which makes measured ankle-brachial indices unreliable. Toe brachial indices are considered more reliable in this situation.
2. Right toe brachial index 0.27 (normal greater than 0.7). Heavily calcified plaque is seen throughout the arteries of the right lower extremity. There is long segment calcified plaque within the right popliteal artery, associated with posterior
acoustic shadowing, which limits evaluation for right popliteal stenosis. Spectral Doppler waveform analysis is suggestive of infrapopliteal disease.
3. Left toe brachial index 0.39. Heavily calcified arterial plaque. Abnormal waveforms throughout the arteries of the left lower extremity suggestive of left iliac disease. High-grade stenosis within the left popliteal artery, velocity ratio
approximately 9. Infrapopliteal disease may also be present.
# Coronary artery disease with history of CABG
# Paroxysmal atrial fibrillation-continue Eliquis and amiodarone.
# Chronic heart failure with reduced ejection fraction with recovered ejection fraction-continue Lasix
Echo 07/13/2024-small LV. LVH-mild. EF 55 to 60%. Thickened mitral leaflets mitral annular calcification, trace MR. Mild sclerosis without stenosis
(An echo at [facility] in 2022 was notable for stage II diastolic dysfunction with a dilated left atrium, mild mitral regurgitation and ejection fraction 65%)
# ESRD on peritoneal dialysis-nephrology consulted
# Hypertension-continue amlodipine and lisinopril
# Hyperlipidemia-continue statin
# Hypothyroidism-continue Synthroid
# Chronic anemia-likely secondary to kidney disease. Iron studies adequate.
# Cognitive Dysfunction per son
# Ex Smoker
# DVT prophylaxis- Hep gtt
# Full code
discussed with patient and patient's son Hossein
I spent a total of 40 minutes with the patient or on the floor. More than 50% of this time involved counseling and coordination of care.
Anticipated Discharge: 24 - 48 hours
Subjective/Interval History
-
Date of Service: August 02, 2024
No acute distress appears comfortable at this time. Denies new acute issues.
Objective Data
-
Labs:
Laboratory Results
08/01/24 08/02/24
19:45 03:22
WBC 9.9
Hgb 8.0 L
Hct 23.4 L
Plt Count 237
APTT 89.2 H 84.9 H
Sodium 136
Potassium 4.1
Chloride 95 L
Carbon Dioxide 30
BUN 43 H
Creatinine 8.6 H*
Glucose 97
Calcium 8.7
Vital Signs:
Vital Signs
Temp Pulse Resp BP Pulse Ox
98.0 F 66 20 133/59 96
08/02/24 03:37 08/02/24 02:21 08/02/24 02:21 08/02/24 01:56 08/01/24 04:00
I&O
07/31/24 08/01/24 08/02/24
06:59 06:59 06:59
Intake Total 1585 / 1585 1425 / 1425 300 / 300
Output Total 0 / 0 950 / 950 800 / 800
Balance 1585 / 1585 475 / 475 -500 / -500
--- NOTE | 2024-08-02 07:49 | W.PN.UPDATE ---
Update Note
Progress Note Update
Seen and evaluated this a.m. Patient was initially seen by Dr. Ruffin over the weekend (see full consultation). He is neuro stable. I reviewed all his imaging. Discussed with him recommendation for revascularization of severe left internal
carotid artery stenosis given stroke. (Left hemispheric). Discussed TCAR versus transfemoral stenting. Would favor TCAR. His incision does extend down to base of neck, but I think TCAR is still doable. Real question here is
anticoagulant/antiplatelet therapy. For TCAR/carotid stenting favor loading with antiplatelet therapy prior to procedure (generally we start 4 to 5 days before procedure). But the question is would he need Eliquis as well (history of A-fib). Will
need to discuss with/seek input from cardiology regarding whether Eliquis can be held for a month (duration of dual antiplatelet therapy), or alternatively we do triple therapy (for 1 month, followed by cessation of Plavix), or alternatively Plavix
and Eliquis alone.
Discussed with patient procedure of TCAR/carotid stenting. Discussed recommendation for revascularization based on his symptomatic status now. He understands all wishes to proceed. Will await cardiology input regarding anticoag/antiplatelet and
determine timing of revascularization.
[2024-08-02] MEDS: NEPHROCAP 1 CAPSULE PO (07:50)
[2024-08-02] MEDS: TUMS CHEWABLE TABLET 200 MG PO ×3 (07:50→20:55)
[2024-08-02] MEDS: VITAMIN D3 (cholecalciferol) 25 MCG PO (07:50)
[2024-08-02] MEDS: VITAMIN B-12 1000 MCG PO (07:50)
[2024-08-02] MEDS: MAG-TAB SR 84 MG PO (07:50)
[2024-08-02] MEDS: ZESTRIL 40 MG PO (07:50)
[2024-08-02] MEDS: LIPITOR 40 MG PO (07:50)
[2024-08-02] MEDS: COLACE 100 MG PO (07:50)
[2024-08-02] MEDS: PACERONE 200 MG PO (07:51)
[2024-08-02] MEDS: NORVASC 5 MG PO (07:51)
--- NOTE | 2024-08-02 10:36 | W.PN.CARDCBS ---
Today's Communication / Plan
-
Stable cardiology status for TCAR
Would be reluctant to hold Eliquis for 30 days given high risk of cardiac embolic event with A-fib and CVA
Impression / Plan
-
Assessment:
Cardiology consult as preop for left TCAR
Recent TIA/CVA
Carotid arterial disease with remote bilateral carotid endarterectomies in the past
Coronary artery disease with remote coronary bypass grafting surgery x 2 in 1989, PCI prior to CABG. He remains on aspirin 81 mg
Abdominal aortic aneurysm
Atrial fibrillation, on amiodarone for rhythm control
Chronic anticoagulation with Eliquis for atrial fibrillation related thromboembolic risk reduction
End-stage renal disease on peritoneal dialysis
Hypertension treated with amlodipine as well as lisinopril and metoprolol succinate
Dyslipidemia treated with atorvastatin and goal LDL less than 70
Orthostatic hypotension
Balance disorder
Anemia
Hypothyroidism
07/13/24 Echocardiogram finds LVEF 55 to 60%, normal right heart with normal pulmonary artery pressures, no significant valvular disease. Compared to prior echocardiogram report from [facility] in 2022, there is no significant change.
EKG July 28, 2024 finds sinus rhythm with first-degree AV delay left anterior fascicular block and cannot exclude inferior wall myocardial infarction age undetermined
Recommendations:
Okay for TCAR without further testing
Would be reluctant to hold Eliquis for 30 days given high risk of cardioembolic event with prior A-fib and CVA
Progress Note - Order Entry Administrator
Subjective
Date of Service: August 02, 2024
No complaints
Objective
Labs:
08/02/24 03:22
08/02/24 03:22
Labs
Hgb 8.0 g/dL (13.0-18.0) L 08/02/24 03:22
Hct 23.4 % (39.0-52.0) L 08/02/24 03:22
Plt Count 237 10^3/uL (130-400) 08/02/24 03:22
APTT 84.9 Sec (23.4-35.0) H 08/02/24 03:22
Sodium 136 mmol/L (135-145) 08/02/24 03:22
Potassium 4.1 mmol/L (3.5-5.1) 08/02/24 03:22
BUN 43 mg/dl (9-20) H 08/02/24 03:22
Creatinine 8.6 mg/dL (0.7-1.3) H* 08/02/24 03:22
Glucose 97 mg/dl (70-99) 08/02/24 03:22
Vital Signs and I&O:
Vital Signs
Temp Pulse Resp BP Pulse Ox
97.9 F 65 18 139/57 97
08/02/24 07:05 08/02/24 07:51 08/02/24 07:50 08/02/24 07:51 08/02/24 07:50
Vital Signs
Temp Pulse Resp BP Pulse Ox
97.9 F 65 18 139/57 97
08/02/24 07:05 08/02/24 07:51 08/02/24 07:50 08/02/24 07:51 08/02/24 07:50
Intake & Output
07/31/24 08/01/24 08/02/24 08/03/24
06:59 06:59 06:59 06:59
Intake Total 1585 / 1585 1425 / 1425 300 / 300
Output Total 0 / 0 950 / 950 800 / 800 200 / 200
Balance 1585 / 1585 475 / 475 -500 / -500 -200 / -200
Physical Exam
Physical Exam
General: Well developed, well nourished in NAD.
Neck: Supple, no JVD, HJR, carotids +2 B/L, no bruits bilaterally.
Heart: Non displaced PMI, RRR, no murmurs, No S3, S4, no rubs.
Lungs: Clear to auscultation bilaterally, no wheeze, rhonchi, rubs bilaterally,
normal expiratory phase.
Extremities: No clubbing, cyanosis or edema bilaterally.
Neuro: Grossly nonfocal, awake, alert and oriented x3.
--- NOTE | 2024-08-02 11:01 | W.PN.NEPH.PH ---
Today's Communication / Plan
-
PD
Assessment/Plan
-
Impression:
CVA
End-stage renal disease on peritoneal dialysis
Hypertension
Paroxysmal atrial fibrillation
Hyperphosphatemia
Anemia
History of CABG
h/o bilat CEA at [place]
Plan:
PD flowsheet reviewed
cont PD prescription to every 4 hours exchanges with 1.5 and 2.5% alternate
follow BMP
Can provide ROMI intermittently for anemia of chronic kidney disease
possible OR this week for carotid left
-
-
Date of Service: August 02, 2024
CC / HPI / ROS
-
Chief Complaint:
End-stage renal disease on peritoneal dialysis
History of Present Illness:
Peritoneal dialysis in progress
Hemodynamically stable
no fever.
no issues with UF on PD
Review of Systems:
No chest pain or shortness of breath
No focal neurological weakness
no n/v
Labs
-
Labs:
WBC 9.9 10^3/uL (4.8-10.8) 08/02/24 03:22
RBC 2.40 10^6/uL (4.70-6.10) L 08/02/24 03:22
Hgb 8.0 g/dL (13.0-18.0) L 08/02/24 03:22
Hct 23.4 % (39.0-52.0) L 08/02/24 03:22
Plt Count 237 10^3/uL (130-400) 08/02/24 03:22
Sodium 136 mmol/L (135-145) 08/02/24 03:22
Potassium 4.1 mmol/L (3.5-5.1) 08/02/24 03:22
Chloride 95 mmol/L (98-107) L 08/02/24 03:22
Carbon Dioxide 30 mmol/L (22-30) 08/02/24 03:22
BUN 43 mg/dl (9-20) H 08/02/24 03:22
Creatinine 8.6 mg/dL (0.7-1.3) H* 08/02/24 03:22
eGFR 5.82 08/02/24 03:22
Glucose 97 mg/dl (70-99) 08/02/24 03:22
Calcium 8.7 mg/dl (8.4-10.2) 08/02/24 03:22
Phosphorus 3.0 mg/dl (2.5-4.5) 08/02/24 03:22
Albumin 3.3 g/dl (3.5-5.0) L 07/29/24 04:28
Physical Exam
-
Vital Signs:
Vital Signs
Temp Pulse Resp BP Pulse Ox
97.9 F 65 18 139/57 97
08/02/24 07:05 08/02/24 07:51 08/02/24 07:50 08/02/24 07:51 08/02/24 07:50
Cardiovascular:: Regular rate and rhythm
Respiratory:: Bilateral: Coarse
Lung Excursion:: Normal
Abdomen:: Nontender and Soft
Bowel Sounds:: Normal
Extremity Edema:: None: Bilateral:
[2024-08-02] MEDS: PROTONIX 40 MG PO (11:37)
--- NOTE | 2024-08-02 12:42 | CM ---
Patient with Hx ESRD on PD with Dx embolic stroke. Plan TCAR/Transcarotid Artery Revasc. Peripheral ultrasound today. Room air. Receiving Heparin gtt. PT/OT recommend HH. ST for cognitive therapy.
Referrals for Acute Rehab reviewed in [facility]; [facility], [facility] and [facility] all declined - patient too high level.
Spoke with patient's son Hossein; extensive discussion after informing him that there are no Acute Rehabs that have accepted, and that his father is doing well with his mobility, and only requiring HH. Hossein expressed disappointment stating he thinks
that the patient is 'lying' to the therapists about his abilities at home, and telling them he doesn't need stair training. Hossein says he feels his father has some cognitive impairment effecting his ability to care for himself at home - CM discussed
that cognitive impairment implies need for caregiver but not necessarily skilled care/acute rehab. Son relays some frustration being primary caregiver for the patient. He states he plans on going out of town this Friday-Friday and has not lined up
anyone if patient is ready for d/c during that time - he wants to wait and see later this week. CM relays that PT/OT/ST will continue to work with his father post op for d/c needs.
As per prior CM notes; patient is current with [facility] for PT - son wishes patient to resume at discharge.
Assess if patient also needs HH for nurse check at home.
Plan speak with son again 08-04/- for d/c planning and make referral to [facility] as needed.
Plan home with resumption [facility] and possible [facility] for nurse as needed.
--- NOTE | 2024-08-02 16:50 | PTCARENOTE ---
Patient AOx3. NIH stroke scale completed per order. PD completed per order. Heparin infusing per order. Patient ambulated to bathroom with mid assist. Call molina within reach, bed in lowest position, and wheels locked.
[2024-08-02] MEDS: HEPARIN 25000 UNITS/250 ML IV (17:03)
--- NOTE | 2024-08-02 17:21 | PTCARENOTE ---
Verified with Latricia De La Torre that patient can have both plavix and heparin as ordered. Care ongoing at this time.
[2024-08-02] MEDS: PLAVIX 75 MG PO (17:23)
[2024-08-02] MEDS: ELIQUIS 5 MG PO (20:55)
--- NOTE | 2024-08-02 22:00 | PTCARENOTE ---
Received pt from day shift. aaox3, VSS, NIH 0. Heparin gtt was running at 8 mL/hr, stopped when gave pt Eliquis (see MAR). PD completed per Rx (see worklist). pt resting in bed with call molina in reach.
[2024-08-03] MEDS: SYNTHROID 150 MCG PO (04:23)
[2024-08-03 04:41] LABS: Hematocrit 25.6 % (39.0-52.0); Hemoglobin 8.8 g/dL (13.0-18.0); Mean Corp Hgb Conc. 34.4 g/dL (33.0-37.0); Mean Corpuscular Hgb 34.2 pg (27.0-31.0); Mean Corpuscular Volume 99.6 fL (80.0-94.0); Mean Platelet Volume 9.9 fL (7.4-10.4); Platelet Count 221 10^3/uL (130-400); Red Blood Cell Count 2.57 10^6/uL (4.70-6.10); Red Cell Dist. Width 16.5 % (11.5-14.5); White Blood Cell Count 9.6 10^3/uL (4.8-10.8)
[2024-08-03 04:55] LABS: APTT 40.1 Sec (23.4-35.0)
[2024-08-03 05:26] LABS: Blood Urea Nitrogen 40 mg/dl (9-20); Calcium 8.6 mg/dl (8.4-10.2); Carbon Dioxide 29 mmol/L (22-30); Chloride 94 mmol/L (98-107); Estimated Creatinine Clearance 7 ml/min; Glucose 104 mg/dl (70-99); Magnesium 1.8 mg/dl (1.6-2.3); Phosphorus 2.8 mg/dl (2.5-4.5); Potassium 4.1 mmol/L (3.5-5.1); Sodium 137 mmol/L (135-145); eGFR 6.17
--- NOTE | 2024-08-03 07:44 | W.PN.UPDATE ---
Addendum entered and electronically signed by Saulo Nickerson MD 08/03/24 13:00:
Seen and examined this morning with FLUX CORE WELDER. Agree with plan as discussed below. Patient is neuro stable. I discussed plan also with patient's son Hossein via the phone per patient's request. He understands all and they are all on board with the plan.
Original Note:
Update Note
Progress Note Update
Plan for TCAR next week. If patient still in-house we will add on to schedule for Friday. If patient discharges before then we will call him with outpatient instructions for surgery Friday.
Please continue Plavix.
Patient understands and is also in agreement.
[2024-08-03 07:45] VITALS: BMI 24.1
--- NOTE | 2024-08-03 07:46 | W.PN.HOSP.TC ---
Today's Communication/Plan
-
cont Eliquis Plavix
monitor H&H
Ok to downgrade to Tele
likely discharge tomorrow home with home services if remains stable
Assessment / Plan
Assessment / Plan
Physical Exam
General: no acute distress, appears comfortable at this time
HEENT: Normocephalic atraumatic, missing teeth noted b/l carotid bruit
CVS: S1-S2 normal
Chest: CTA B/L
Abdomen: Soft, NT / Bowel sounds present
Extremities: No edema, normal pulses
PROCESS PLANNER: Awake Alert Conversant No facial droop 5 x 5 strength bilateral upper extremity and lower extremity
79-year-old man with difficulty speaking and confusion on admission.
CT of the head-old 4 cm right lateral frontal infarct. Moderate diffuse cortical and cerebellar atrophy
EKG sinus rhythm with first AV block, Left anterior vascular block
Echo 07/13/2024-small LV. LVH-mild. EF 55 to 60%. Thickened mitral leaflets mitral annular calcification, trace MR. Mild sclerosis without stenosis
(An echo at [facility] in 2022 was notable for stage II diastolic dysfunction with a dilated left atrium, mild mitral regurgitation and ejection fraction 65%)
MRI of the brain-restricted diffusion within the posterior left occipital lobe as well as multiple small foci of restricted diffusion within the left parietal lobe consistent with acute infarction. Right frontal encephalomalacia with additional
mild atrophy and sequelae of mild small vessel ischemic disease.
MRA-lack of flow related enhancement within the proximal vertebral arteries bilaterally with reconstitution V3 segment on the left. Findings may be related to high-grade stenosis or possibly diminutive caliber of the vessel with slow flow.
Extensive atherosclerotic calcifications of the left carotid bifurcation with resultant high-grade stenosis of the proximal left ICA consider CTA of the neck.
Patient was taking 2.5 mg of Eliquis as it is expensive for him and this was leftover from his mother.
# MRI with embolic stroke
Presented with difficulty speaking and confusion
MRI/MRA as above
Old CVA on the CT
Continue neurochecks
EEG without any seizures
CTA neck appreciated severe stenosis left internal proximal carotid artery, no flow seen w/in proximal vertebral arteries b/l w/ reconstitution of the v2 segments b/l at c4-5 lvl likely reflecting chronic high-grade stenosis and/or chronic short
segment dissections.
Vascular eval appreciated patient potentially may benefit TCAR vs stent placement, question as to whether Eliquis may be held for procedure and during the follow up 1 mo dual antiplatelet treatment vs attempting triple therapy w asa plavix Eliquis
Cardio eval appreciated overall cardiac preoperative risk moderate high but not prohibitive, no additional cardiac testing recommended, holding Eliquis as above however not recommended
Per vascular discussion with Neurology, stroke likely watershed from hypotension, expedited surgery subsequently not required, vascular would also favor not bolusing with plavix since Eliquis can not be held as above, patient subsequently started on
plavix 75mg daily with plans for outpt TCAR next week Fri, cleared to discontinue hep gtt and resume Eliquis.
pre-op CXR 08/03 for planned TCAR next week noted free air under diaphragm.
Patient assessed resting comfortably in bed VSS in no acute distress denies abdomen pain.
Discussed with nephrology, free air finding most likely 2/2 peritoneal dialysis, no concern for perforated viscus at this time.
PAD
US Periph Art LOWER Ext w CAMRON appreciated
1. Noncompressible arteries bilaterally, suggestive of medial calcinosis and/or arterial noncompliance, which makes measured ankle-brachial indices unreliable. Toe brachial indices are considered more reliable in this situation.
2. Right toe brachial index 0.27 (normal greater than 0.7). Heavily calcified plaque is seen throughout the arteries of the right lower extremity. There is long segment calcified plaque within the right popliteal artery, associated with posterior
acoustic shadowing, which limits evaluation for right popliteal stenosis. Spectral Doppler waveform analysis is suggestive of infrapopliteal disease.
3. Left toe brachial index 0.39. Heavily calcified arterial plaque. Abnormal waveforms throughout the arteries of the left lower extremity suggestive of left iliac disease. High-grade stenosis within the left popliteal artery, velocity ratio
approximately 9. Infrapopliteal disease may also be present.
# Coronary artery disease with history of CABG
# Paroxysmal atrial fibrillation-continue Eliquis and amiodarone.
# Chronic heart failure with reduced ejection fraction with recovered ejection fraction-continue Lasix
Echo 07/13/2024-small LV. LVH-mild. EF 55 to 60%. Thickened mitral leaflets mitral annular calcification, trace MR. Mild sclerosis without stenosis
(An echo at [facility] in 2022 was notable for stage II diastolic dysfunction with a dilated left atrium, mild mitral regurgitation and ejection fraction 65%)
# ESRD on peritoneal dialysis-nephrology consulted
# Hypertension-continue amlodipine and lisinopril
# Hyperlipidemia-continue statin
# Hypothyroidism-continue Synthroid
# Chronic anemia-likely secondary to kidney disease. Iron studies adequate.
# Cognitive Dysfunction per son
# Ex Smoker
# DVT prophylaxis- Eliquis
# Full code
discussed with patient and patient's son Hossein
I spent a total of 35 minutes with the patient or on the floor. More than 50% of this time involved counseling and coordination of care.
Anticipated Discharge: Within 24 hours
Subjective/Interval History
-
Date of Service: August 03, 2024
no acute distress, comfortable. Denies new acute issues.
Objective Data
-
Labs:
Laboratory Results
08/03/24
04:28
WBC 9.6
Hgb 8.8 L
Hct 25.6 L
Plt Count 221
APTT 40.1 H
Sodium 137
Potassium 4.1
Chloride 94 L
Carbon Dioxide 29
BUN 40 H
Creatinine 8.2 H*
Glucose 104 H
Calcium 8.6
Vital Signs:
Vital Signs
Temp Pulse Resp BP Pulse Ox
98.2 F 70 17 135/51 96
08/02/24 23:15 08/02/24 23:15 08/02/24 23:15 08/02/24 23:15 08/02/24 23:15
I&O
08/02/24 08/03/24 08/04/24
06:59 06:59 06:59
Intake Total 300 / 300 440 / 440
Output Total 800 / 800 1000 / 1000 125 / 125
Balance -500 / -500 -560 / -560 -125 / -125
[2024-08-03] MEDS: PLAVIX 75 MG PO (08:08)
[2024-08-03] MEDS: VITAMIN D3 (cholecalciferol) 25 MCG PO (08:08)
[2024-08-03] MEDS: PROTONIX 40 MG PO (08:08)
[2024-08-03] MEDS: COLACE 100 MG PO (08:08)
[2024-08-03] MEDS: NEPHROCAP 1 CAPSULE PO (08:08)
[2024-08-03] MEDS: VITAMIN B-12 1000 MCG PO (08:08)
[2024-08-03] MEDS: TUMS CHEWABLE TABLET 200 MG PO ×3 (08:08→19:26)
[2024-08-03] MEDS: LIPITOR 40 MG PO (08:09)
[2024-08-03] MEDS: PACERONE 200 MG PO (08:09)
[2024-08-03] MEDS: ZESTRIL 40 MG PO (08:09)
[2024-08-03] MEDS: MAG-TAB SR 84 MG PO (08:09)
[2024-08-03] MEDS: ELIQUIS 5 MG PO ×2 (08:09→19:26)
[2024-08-03] MEDS: NORVASC 5 MG PO (08:10)
--- NOTE | 2024-08-03 09:26 | W.PN.CARDCBS ---
Today's Communication / Plan
-
Stable cardiology status for TCAR
Will sign off
Impression / Plan
-
Assessment:
Cardiology consult as preop for left TCAR
Recent TIA/CVA
Carotid arterial disease with remote bilateral carotid endarterectomies in the past
Coronary artery disease with remote coronary bypass grafting surgery x 2 in 1989, PCI prior to CABG. He remains on aspirin 81 mg
Abdominal aortic aneurysm
Atrial fibrillation, on amiodarone for rhythm control
Chronic anticoagulation with Eliquis for atrial fibrillation related thromboembolic risk reduction
End-stage renal disease on peritoneal dialysis
Hypertension treated with amlodipine as well as lisinopril and metoprolol succinate
Dyslipidemia treated with atorvastatin and goal LDL less than 70
Orthostatic hypotension
Balance disorder
Anemia
Hypothyroidism
07/13/24 Echocardiogram finds LVEF 55 to 60%, normal right heart with normal pulmonary artery pressures, no significant valvular disease. Compared to prior echocardiogram report from [facility] in 2022, there is no significant change.
EKG July 28, 2024 finds sinus rhythm with first-degree AV delay left anterior fascicular block and cannot exclude inferior wall myocardial infarction age undetermined
Recommendations:
Okay for TCAR without further testing
Schedule surgery to be done likely as an outpatient in 1 week
Continue Plavix and Eliquis for now.
Would not hold Eliquis postop given high risk of CVA and may need Eliquis and Plavix initially depending on vascular surgery input
Progress Note - Registered Nurse Teacher
Subjective
Date of Service: August 03, 2024
No complaints
Objective
Labs:
08/03/24 04:28
08/03/24 04:28
Labs
Hgb 8.8 g/dL (13.0-18.0) L 08/03/24 04:28
Hct 25.6 % (39.0-52.0) L 08/03/24 04:28
Plt Count 221 10^3/uL (130-400) 08/03/24 04:28
APTT 40.1 Sec (23.4-35.0) H 08/03/24 04:28
Sodium 137 mmol/L (135-145) 08/03/24 04:28
Potassium 4.1 mmol/L (3.5-5.1) 08/03/24 04:28
BUN 40 mg/dl (9-20) H 08/03/24 04:28
Creatinine 8.2 mg/dL (0.7-1.3) H* 08/03/24 04:28
Glucose 104 mg/dl (70-99) H 08/03/24 04:28
Vital Signs and I&O:
Vital Signs
Temp Pulse Resp BP Pulse Ox
98.2 F 71 17 147/68 100
08/02/24 23:15 08/03/24 08:10 08/02/24 23:15 08/03/24 08:10 08/03/24 08:00
Vital Signs
Temp Pulse Resp BP Pulse Ox
98.2 F 71 17 147/68 100
08/02/24 23:15 08/03/24 08:10 08/02/24 23:15 08/03/24 08:10 08/03/24 08:00
Intake & Output
08/01/24 08/02/24 08/03/24 08/04/24
06:59 06:59 06:59 06:59
Intake Total 1425 / 1425 300 / 300 440 / 440
Output Total 950 / 950 800 / 800 1000 / 1000 125 / 125
Balance 475 / 475 -500 / -500 -560 / -560 -125 / -125
Physical Exam
Physical Exam
General: Well developed, well nourished in NAD.
Neck: Supple, no JVD, HJR, carotids +2 B/L, no bruits bilaterally.
Heart: Non displaced PMI, RRR, no murmurs, No S3, S4, no rubs.
Lungs: Scattered rhonchi
Extremities: No clubbing, cyanosis or edema bilaterally.
Neuro: Grossly nonfocal, awake, alert and oriented x3.
[2024-08-03 09:40] VITALS: BP 135/59; PULSE 71; O2SAT 98
--- NOTE | 2024-08-03 10:13 | W.PN.NEPH.PH ---
Today's Communication / Plan
-
PD ordered
Assessment/Plan
-
Impression:
CVA
End-stage renal disease on peritoneal dialysis
Hypertension
Paroxysmal atrial fibrillation
Hyperphosphatemia
Anemia
History of CABG
h/o bilat CEA at [place]
Plan:
PD flowsheet reviewed
cont PD prescription exchange every 4 hours with 1.5 and 2.5% alternating
follow BMP
possible dc with TCAR next week
-
-
Date of Service: August 03, 2024
CC / HPI / ROS
-
Chief Complaint:
End-stage renal disease on peritoneal dialysis
History of Present Illness:
Peritoneal dialysis in progress
Hemodynamically stable
no fever.
no issues with UF on PD, net negative
Review of Systems:
No chest pain or shortness of breath
no n/v
Labs
-
Labs:
WBC 9.6 10^3/uL (4.8-10.8) 08/03/24 04:28
RBC 2.57 10^6/uL (4.70-6.10) L 08/03/24 04:28
Hgb 8.8 g/dL (13.0-18.0) L 08/03/24 04:28
Hct 25.6 % (39.0-52.0) L 08/03/24 04:28
Plt Count 221 10^3/uL (130-400) 08/03/24 04:28
Sodium 137 mmol/L (135-145) 08/03/24 04:28
Potassium 4.1 mmol/L (3.5-5.1) 08/03/24 04:28
Chloride 94 mmol/L (98-107) L 08/03/24 04:28
Carbon Dioxide 29 mmol/L (22-30) 08/03/24 04:28
BUN 40 mg/dl (9-20) H 08/03/24 04:28
Creatinine 8.2 mg/dL (0.7-1.3) H* 08/03/24 04:28
eGFR 6.17 08/03/24 04:28
Glucose 104 mg/dl (70-99) H 08/03/24 04:28
Calcium 8.6 mg/dl (8.4-10.2) 08/03/24 04:28
Phosphorus 2.8 mg/dl (2.5-4.5) 08/03/24 04:28
Albumin 3.3 g/dl (3.5-5.0) L 07/29/24 04:28
Physical Exam
-
Vital Signs:
Vital Signs
Temp Pulse Resp BP Pulse Ox
98 F 71 17 147/68 100
08/03/24 07:05 08/03/24 08:10 08/02/24 23:15 08/03/24 08:10 08/03/24 08:00
Cardiovascular:: Regular rate and rhythm
Respiratory:: Bilateral: CTA
Lung Excursion:: Normal
Abdomen:: Nontender and Soft
Bowel Sounds:: Normal
Extremity Edema:: None: Bilateral:
[2024-08-03 15:30] VITALS: BP 136/66; BP 138/60; BP 159/69; PULSE 67; PULSE 76; PULSE 81
[2024-08-03 15:49] VITALS: PULSE 70; O2SAT 98
--- NOTE | 2024-08-03 17:11 | W.PN.UPDATE ---
Update Note
Progress Note Update
pre-op CXR for planned TCAR next week noted free air under diaphragm.
Patient assessed resting comfortably in bed VSS in no acute distress denies abdomen pain.
Discussed with nephrology, free air finding most likely 2/2 peritoneal dialysis, no concern for perforated viscus at this time.
--- NOTE | 2024-08-03 17:11 | PTCARENOTE ---
Patient AOx3. NIH stroke scale completed per order. PD completed per order. Patient does not empty completely when lying for PD. When patient stands, he puts out greater than 2000. Patient ambulated to bathroom with mid assist. Call molina within
reach, bed in lowest position, and wheels locked. See worklist for full assessment.
--- NOTE | 2024-08-03 17:17 | PTCARENOTE ---
Dr Moncada up to see patient after CXR resulted. This nurse verified with Dr Mnocada via tigert text that patient may continue with PD treatments.
[2024-08-03 22:10] VITALS: BP 152/68
[2024-08-04] VITALS: BP 143/59
[2024-08-04 04:00] VITALS: BP 156/63
[2024-08-04] MEDS: SYNTHROID 150 MCG PO (04:42)
[2024-08-04 05:12] VITALS: BMI 24.3
[2024-08-04 05:13] LABS: Hematocrit 25.8 % (39.0-52.0); Hemoglobin 8.9 g/dL (13.0-18.0); Mean Corp Hgb Conc. 34.5 g/dL (33.0-37.0); Mean Corpuscular Hgb 33.6 pg (27.0-31.0); Mean Corpuscular Volume 97.4 fL (80.0-94.0); Mean Platelet Volume 9.9 fL (7.4-10.4); Platelet Count 214 10^3/uL (130-400); Red Blood Cell Count 2.65 10^6/uL (4.70-6.10); Red Cell Dist. Width 16.5 % (11.5-14.5); White Blood Cell Count 9.3 10^3/uL (4.8-10.8)
[2024-08-04 06:07] LABS: Blood Urea Nitrogen 41 mg/dl (9-20); Calcium 8.7 mg/dl (8.4-10.2); Carbon Dioxide 28 mmol/L (22-30); Chloride 94 mmol/L (98-107); Estimated Creatinine Clearance 7 ml/min; Glucose 103 mg/dl (70-99); Magnesium 1.7 mg/dl (1.6-2.3); Phosphorus 2.7 mg/dl (2.5-4.5); Potassium 3.9 mmol/L (3.5-5.1); Sodium 137 mmol/L (135-145); eGFR 6.45
[2024-08-04] MEDS: TUMS CHEWABLE TABLET 200 MG PO ×2 (08:05→15:48)
[2024-08-04] MEDS: VITAMIN B-12 1000 MCG PO (08:05)
[2024-08-04] MEDS: ELIQUIS 5 MG PO (08:06)
[2024-08-04] MEDS: COLACE 100 MG PO (08:06)
[2024-08-04] MEDS: NEPHROCAP 1 CAPSULE PO (08:06)
[2024-08-04] MEDS: PACERONE 200 MG PO (08:06)
[2024-08-04] MEDS: LIPITOR 40 MG PO (08:06)
[2024-08-04] MEDS: PLAVIX 75 MG PO (08:06)
[2024-08-04] MEDS: MAG-TAB SR 84 MG PO (08:06)
[2024-08-04] MEDS: PROTONIX 40 MG PO (08:06)
[2024-08-04] MEDS: VITAMIN D3 (cholecalciferol) 25 MCG PO (08:07)
[2024-08-04] MEDS: ZESTRIL 40 MG PO (08:07)
[2024-08-04] MEDS: NORVASC 5 MG PO (08:07)
--- NOTE | 2024-08-04 09:20 | W.PN.HOSP.TC ---
Today's Communication/Plan
-
discharge
Assessment / Plan
Assessment / Plan
Physical Exam
General: no acute distress, appears comfortable at this time
HEENT: Normocephalic atraumatic, missing teeth noted b/l carotid bruit
CVS: S1-S2 normal
Chest: CTA B/L
Abdomen: Soft, NT / Bowel sounds present
Extremities: No edema, normal pulses
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
79-year-old man with difficulty speaking and confusion on admission.
CT of the head-old 4 cm right lateral frontal infarct. Moderate diffuse cortical and cerebellar atrophy
EKG sinus rhythm with first AV block, Left anterior vascular block
Echo 07/13/2024-small LV. LVH-mild. EF 55 to 60%. Thickened mitral leaflets mitral annular calcification, trace MR. Mild sclerosis without stenosis
(An echo at [facility] in 2022 was notable for stage II diastolic dysfunction with a dilated left atrium, mild mitral regurgitation and ejection fraction 65%)
MRI of the brain-restricted diffusion within the posterior left occipital lobe as well as multiple small foci of restricted diffusion within the left parietal lobe consistent with acute infarction. Right frontal encephalomalacia with additional
mild atrophy and sequelae of mild small vessel ischemic disease.
MRA-lack of flow related enhancement within the proximal vertebral arteries bilaterally with reconstitution V3 segment on the left. Findings may be related to high-grade stenosis or possibly diminutive caliber of the vessel with slow flow.
Extensive atherosclerotic calcifications of the left carotid bifurcation with resultant high-grade stenosis of the proximal left ICA consider CTA of the neck.
Patient was taking 2.5 mg of Eliquis as it is expensive for him and this was leftover from his mother.
# MRI with embolic stroke
Presented with difficulty speaking and confusion
MRI/MRA as above
Old CVA on the CT
Continue neurochecks
EEG without any seizures
CTA neck appreciated severe stenosis left internal proximal carotid artery, no flow seen w/in proximal vertebral arteries b/l w/ reconstitution of the v2 segments b/l at c4-5 lvl likely reflecting chronic high-grade stenosis and/or chronic short
segment dissections.
Vascular eval appreciated patient potentially may benefit TCAR vs stent placement, question as to whether Eliquis may be held for procedure and during the follow up 1 mo dual antiplatelet treatment vs attempting triple therapy w asa plavix Eliquis
Cardio eval appreciated overall cardiac preoperative risk moderate high but not prohibitive, no additional cardiac testing recommended, holding Eliquis as above however not recommended
Per vascular discussion with Neurology, stroke likely watershed from hypotension, expedited surgery subsequently not required, vascular would also favor not bolusing with plavix since Eliquis can not be held as above, patient subsequently started on
plavix 75mg daily with plans for outpt TCAR next week Fri, cleared to discontinue hep gtt and resume Eliquis.
08/04 appears to be tolerating combination Eliquis Plavix well
pre-op CXR 08/03 for planned TCAR next week noted free air under diaphragm.
Patient assessed resting comfortably in bed VSS in no acute distress denies abdomen pain.
Discussed with nephrology, free air finding most likely 2/2 peritoneal dialysis, no concern for perforated viscus at this time.
PAD
US Periph Art LOWER Ext w CAMRON appreciated
1. Noncompressible arteries bilaterally, suggestive of medial calcinosis and/or arterial noncompliance, which makes measured ankle-brachial indices unreliable. Toe brachial indices are considered more reliable in this situation.
2. Right toe brachial index 0.27 (normal greater than 0.7). Heavily calcified plaque is seen throughout the arteries of the right lower extremity. There is long segment calcified plaque within the right popliteal artery, associated with posterior
acoustic shadowing, which limits evaluation for right popliteal stenosis. Spectral Doppler waveform analysis is suggestive of infrapopliteal disease.
3. Left toe brachial index 0.39. Heavily calcified arterial plaque. Abnormal waveforms throughout the arteries of the left lower extremity suggestive of left iliac disease. High-grade stenosis within the left popliteal artery, velocity ratio
approximately 9. Infrapopliteal disease may also be present.
# Coronary artery disease with history of CABG
# Paroxysmal atrial fibrillation-continue Eliquis and amiodarone.
# Chronic heart failure with reduced ejection fraction with recovered ejection fraction-continue Lasix
Echo 07/13/2024-small LV. LVH-mild. EF 55 to 60%. Thickened mitral leaflets mitral annular calcification, trace MR. Mild sclerosis without stenosis
(An echo at [facility] in 2022 was notable for stage II diastolic dysfunction with a dilated left atrium, mild mitral regurgitation and ejection fraction 65%)
# ESRD on peritoneal dialysis-nephrology consulted
# Hypertension-continue amlodipine and lisinopril
# Hyperlipidemia-continue statin
# Hypothyroidism-continue Synthroid
# Chronic anemia-likely secondary to kidney disease. Iron studies adequate.
# Cognitive Dysfunction per son
# Ex Smoker
# DVT prophylaxis- Eliquis
# Full code
Medically stable for discharge home with home services and outpatient follow up recommendations.
discussed with patient and patient's son Hossein
Total Time Preparing Discharge ___40___ minutes including examination of the patient, summary of the hospital stay, instructions for continuing care to all relevant caregivers; and preparation of discharge records, prescriptions, and referral forms
if necessary.
Anticipated Discharge: Today
Subjective/Interval History
-
Date of Service: August 04, 2024
Seen and examined at bedside in no acute distress resting comfortably in bed. Reports overall feeling well. Denies new acute issues at this time. Eager to go home.
Objective Data
-
Labs:
Laboratory Results
08/04/24
04:51
WBC 9.3
Hgb 8.9 L
Hct 25.8 L
Plt Count 214
Sodium 137
Potassium 3.9
Chloride 94 L
Carbon Dioxide 28
BUN 41 H
Creatinine 7.9 H*
Glucose 103 H
Calcium 8.7
Vital Signs:
Vital Signs
Temp Pulse Resp BP Pulse Ox
97.7 F 71 16 125/57 98
08/04/24 07:35 08/04/24 08:07 08/03/24 15:30 08/04/24 08:07 08/03/24 20:32
I&O
08/03/24 08/04/24 08/05/24
06:59 06:59 06:59
Intake Total 440 / 440 100 / 100
Output Total 1000 / 1000 1125 / 1125
Balance -560 / -560 -1025 / -1025
[2024-08-04 11:00] VITALS: BP 110/58; BP 121/56; BP 125/64; PULSE 80; PULSE 88; PULSE 92
--- NOTE | 2024-08-04 12:54 | CM ---
Addendum entered by Denise Finley 08/04/24 13:21:
Patient son reviewed IMM with CM and stated that patient son could sign form.
Addendum entered by Denise Finley 08/04/24 13:15:
[facility] care and discharge summary is [phone]. CM called to [facility] [phone] and spoke with energy conservation representative as the referral sent via all scripts with no response. Per energy conservation representative patient was current with [facility] and he
updated therapist.
Original Note:
Patient seen at bedside. Patient complaining of being cold. Patient physician consulted CM to update that patient is for discharge today and CM referral placed for VN.
CM called to Hossein barreto to confirm discharge transportation and confirm VN requested. Patient son requested [facility] for pt/ot. CM will send referral. Patient ride to be here around 4pm per son and he requested phone number for vascular to contact
them about the procedure scheduling. CM will update physician and nursing.
Plan; home with aides/ ride at 4. referral to [facility] for [place]
--- NOTE | 2024-08-04 15:15 | W.DCSUMMARY ---
Discharge Summary
Discharge Data
Date of Admission: 07/30/24
Date of Discharge: 08/04/24
-
Pending Results: No
Discharge Plan
-
Patient Disposition: Home with Home Care
Discharge Diagnosis/Procedures: Stroke
Severe Left Carotid Stenosis
Peripheral Arterial Disease
Coronary artery disease history CABG
Paroxysmal atrial fibrillation
History Heart Failure Reduced Ejection Fraction Recovered EF
ESRD on peritoneal dialysis
Hypertension
Hyperlipidemia
Hypothyroidism
Chronic anemia-likely secondary to kidney disease
Mild moderate cognitive impairment
Ex Smoker
Condition: Fair
Diet: Low Cholesterol, 2 Gram Sodium and Restrict fluids to 48 oz
Additional Diets: 4g potassium restriction
Activity: As tolerated
Driving Restrictions: Not until seen by your Dr
Bathing Restrictions: None
Other Services: VN, PT, OT and ST
Activity Restrictions/Additional Instructions:
Follow up with primary care provider in 1 week of discharge and keep your appointment with vascular surgeon. Follow up with Neurology in 1 month of discharge
Your upcoming vascular surgery procedure for transcarotid artery revascularization (TCAR) is scheduled for 08/11/2024, our office senior master scheduler will call you with arrival time and surgery instructions.
Plavix and Eliquis have been prescribed for severe carotid stenosis and stroke risk reduction for atrial fibrillation, respectively. A coupon has been provided to assist in reducing cost for Eliquis.
Please take medications as prescribed/recommended and follow up with primary care provider and/or other healthcare provider involved in your care for refills and/or further adjustment to your medication regimen as necessary.
Referrals:
Iliana Hoang CRNP [Family Provider] - in one week
Edmar Walden MD [Active] - in one month
Saulo Nickerson MD [Active] - 08/11/24
Prescriptions:
New
Eliquis 5 mg Tablet
5 mg PO BID 30 Days Qty: 60 0RF
clopidogrel 75 mg Tablet
75 mg PO DAILY 30 Days Qty: 30 0RF
Continued
amiodarone 200 mg Tablet
200 mg PO DAILY
lisinopril 20 mg Tablet
40 mg PO DAILY
cyanocobalamin (vitamin B-12) 1,000 mcg Tablet
1,000 mcg PO DAILY
amlodipine 5 mg Tablet
5 mg PO DAILY
magnesium oxide 400 mg (241.3 mg magnesium) Tablet
400 mg PO DAILY
docusate sodium [Colace] 100 mg Capsule
100 mg PO DAILY
atorvastatin 40 mg Tablet
40 mg PO DAILY
levothyroxine 150 mcg Tablet
150 mcg PO DAILY
calcium carbonate 500 mg calcium (1,250 mg) Tablet,Chewable
500 mg PO TID
cholecalciferol (vitamin D3) [Vitamin D3] 25 mcg (1,000 unit) Tablet
25 mcg PO DAILY
Dialyvite 800 800 mcg Tablet,Chewable
1 tab PO DAILY
Discontinued
Eliquis 2.5 mg Tablet
2.5 mg PO DAILY
Discharge Orders:
Discharge Patient (As Directed); Ordered 08/04/24
Ordered By: Valentina Moncada
Discharge Date and Time
Print Language: LATVIAN
[2024-08-04 15:30] VITALS: BP 136/69
[2024-08-04] MEDS: FLUAD (65 yr+) 2024-2025 FORMULA 0.5 ML IM (15:30)
--- NOTE | 2024-08-04 16:15 | W.PN.NEPH.PH ---
Today's Communication / Plan
-
ok to d/c after drain
Assessment/Plan
-
Impression:
CVA
End-stage renal disease on peritoneal dialysis
Hypertension
Paroxysmal atrial fibrillation
Hyperphosphatemia
Anemia
History of CABG
h/o bilat CEA at [facility]
Plan:
PD flowsheet reviewed
ok to drain fluid prior d/c
he will get on CCPD at home tonight
avoid constipation
plan TCAR next week
d/w pt
-
-
Date of Service: August 04, 2024
CC / HPI / ROS
-
Chief Complaint:
End-stage renal disease on peritoneal dialysis
History of Present Illness:
Peritoneal dialysis in progress
Hemodynamically stable
no fever.
no issues with UF on PD, net negative 1lit
Review of Systems:
No chest pain or shortness of breath
no n/v
Labs
-
Labs:
WBC 9.3 10^3/uL (4.8-10.8) 08/04/24 04:51
RBC 2.65 10^6/uL (4.70-6.10) L 08/04/24 04:51
Hgb 8.9 g/dL (13.0-18.0) L 08/04/24 04:51
Hct 25.8 % (39.0-52.0) L 08/04/24 04:51
Plt Count 214 10^3/uL (130-400) 08/04/24 04:51
Sodium 137 mmol/L (135-145) 08/04/24 04:51
Potassium 3.9 mmol/L (3.5-5.1) 08/04/24 04:51
Chloride 94 mmol/L (98-107) L 08/04/24 04:51
Carbon Dioxide 28 mmol/L (22-30) 08/04/24 04:51
BUN 41 mg/dl (9-20) H 08/04/24 04:51
Creatinine 7.9 mg/dL (0.7-1.3) H* 08/04/24 04:51
eGFR 6.45 08/04/24 04:51
Glucose 103 mg/dl (70-99) H 08/04/24 04:51
Calcium 8.7 mg/dl (8.4-10.2) 08/04/24 04:51
Phosphorus 2.7 mg/dl (2.5-4.5) 08/04/24 04:51
Albumin 3.3 g/dl (3.5-5.0) L 07/29/24 04:28
Physical Exam
-
Vital Signs:
Vital Signs
Temp Pulse Resp BP Pulse Ox
97.7 F 78 18 136/69 98
08/04/24 15:30 08/04/24 15:30 08/04/24 15:30 08/04/24 15:30 08/04/24 15:30
Cardiovascular:: Regular rate and rhythm
Respiratory:: Bilateral: CTA
Lung Excursion:: Normal
Abdomen:: Nontender and Soft
Extremity Edema:: None: Bilateral:
Gavin Catheter: No
== END 2024-08-04 16:38 | disposition home health service (06) | DRG 64 ==
LOC: IMU 14:56
PROVIDERS: Internal Medicine; Student in an Organized Health Care Education/Training Program; ADMITTING PHYSICIAN Hospitalist; ATTENDING PHYSICIAN Internal Medicine; CONSULT PHYSICIAN Internal Medicine Cardiovascular Disease; CONSULT PHYSICIAN Psychiatry & Neurology Neurology; CONSULT PHYSICIAN Specialist; CONSULT PHYSICIAN Surgery; EMERGENCY PHYSICIAN Emergency Medicine; FAMILY PHYSICIAN Nurse Practitioner Family
PROC: 3E02340 Introduction of Influenza Vaccine into Muscle, Percutaneous Approach (ICD-10-PCS; 2024-08-04)
DX: I63.412 Cerebral infarction due to embolism of left middle cerebral artery (principal); N18.6 End stage renal disease; I13.2 Hypertensive heart and chronic kidney disease with heart failure and with stage 5 chronic kidney disease, or end stage renal disease; I50.42 Chronic combined systolic (congestive) and diastolic (congestive) heart failure; I42.9 Cardiomyopathy, unspecified; I25.10 Atherosclerotic heart disease of native coronary artery without angina pectoris; I48.0 Paroxysmal atrial fibrillation; E78.2 Mixed hyperlipidemia; E03.9 Hypothyroidism, unspecified; D63.1 Anemia in chronic kidney disease; E83.39 Other disorders of phosphorus metabolism; I65.22 Occlusion and stenosis of left carotid artery; I95.1 Orthostatic hypotension; I71.40 Abdominal aortic aneurysm, without rupture, unspecified; I73.9 Peripheral vascular disease, unspecified; F06.70 Mild neurocognitive disorder due to known physiological condition without behavioral disturbance; Z23 Encounter for immunization; Z95.1 Presence of aortocoronary bypass graft; Z99.2 Dependence on renal dialysis; Z87.891 Personal history of nicotine dependence; Z79.01 Long term (current) use of anticoagulants; Z79.899 Other long term (current) drug therapy; Z79.890 Hormone replacement therapy
CPT/HCPCS: 70450; 70498; 70544; 70547; 70551; 71046; 80048; 80053; 80061; 82607; 82728; 82746; 82962; 83036; 83540; 83550; 83735; 84100; 84443; 85025; 85027; 85730; 90662; 92507; 92523; 92610; 93005; 93922; 93925; 95813; 97116; 97162; 97166; 97535; 99285; G0008; Q9967

== ENCOUNTER 2024-08-10 08:36 | Inpatient (IN) | payer MEDICARE, BC, SELFPAY ==
[2024-08-09] VITALS (11 sets, daily range): BP systolic 103–150; BP diastolic 53–83; PULSE 70–83; BMI 24.4; BMI 23.7
[2024-08-09 17:37] LABS: % Basophils 1.1 % (0-2); % Eosinophils 3.1 % (0-6); % Immature Granulocytes 0.7 % (0-0.5); % Monocytes 7.5 % (1.7-9.3); % Neutrophils 67.6 % (42.2-75.2); Absolute Basophils 0.1 10^3/uL (0-0.2); Absolute Eosinophils 0.3 10^3/uL (0-0.7); Absolute Immature Granulocytes 0.1 10^3/uL (0-0.05); Absolute Lymphocytes 1.8 10^3/uL (1.2-3.4); Absolute Monocytes 0.7 10^3/uL (0.1-0.6); Absolute Neutrophils 6.1 10^3/uL (1.4-6.5); Hematocrit 30.9 % (39.0-52.0); Hemoglobin 10.4 g/dL (13.0-18.0); Mean Corp Hgb Conc. 33.7 g/dL (33.0-37.0); Mean Corpuscular Hgb 33.3 pg (27.0-31.0); Mean Platelet Volume 9.7 fL (7.4-10.4); Nucleated Red Blood Cells % 0 % (-); Platelet Count 334 10^3/uL (130-400); Red Blood Cell Count 3.12 10^6/uL (4.70-6.10); Red Cell Dist. Width 16.1 % (11.5-14.5)
--- NOTE | 2024-08-09 17:39 | EDRN ---
Patient came in with a prehospital 20G IV in his left AC. IV pulled d/t infiltration.
[2024-08-09 18:09] LABS: ALT (SGPT) 27 U/L (0-50); AST (SGOT) 16 U/L (17-59); Alkaline Phosphatase 72 U/L (38-126); Blood Urea Nitrogen 47 mg/dl (9-20); Calcium 9.5 mg/dl (8.4-10.2); Carbon Dioxide 28 mmol/L (22-30); Chloride 95 mmol/L (98-107); Estimated Creatinine Clearance 5 ml/min; Glucose 112 mg/dl (70-99); Potassium 4.4 mmol/L (3.5-5.1); Sodium 137 mmol/L (135-145); Total Bilirubin 0.3 mg/dl (0.2-1.3); Total Protein 6.5 g/dl (6.3-8.2)
--- NOTE | 2024-08-09 18:18 | ED.GENMED ---
History of Present Illness
General
Chief Complaint: Fainting/Passed Out
Source: patient, records, rn progressive care unit and ambulance crew
Exam Limitations: none
Time Seen by Provider: 08/09/24 17:45
Nursing documentation reviewed up to this point in time: agreed with
History of Present Illness
History of Present Illness:
79-year-old male with a past medical history of hypertension, hyperlipidemia, ESRD on peritoneal dialysis who presents to the emergency room from home where he lives with caregiver/nursing clinical director; presents via EMS for evaluation after loss of
consciousness. Patient was notably admitted this hospital 07/30/2024 until 08/04/2024�he was admitted with stroke. During workup he was found to have severe carotid stenosis. He was started on Eliquis and Plavix and is scheduled for transcarotid
artery revascularization on 08/11/[address] Nickerson. Tonight he says he was in his normal state of health, was in the shower and his nursing clinical director was helping him in the shower. He says that he began to feel very dizzy, nursing clinical director sat him on the
toilet and apparently he had witnessed loss of consciousness. According to aide his eyes rolled back and he was unresponsive for 3 to 5 minutes. Apparently he was hypotensive on EMS arrival to 75/49. Brought to the ER for evaluation. He says
that he feels well here he denies any symptoms as he lies in bed. He says he did not have any chest pain, shortness of breath, palpitations, headache, abdominal/flank pain and denies the symptoms here.
Past History
Past History
ED Past Medical History: CVA (Chronic right frontal, acute left occipital and frontal), HTN, Hypercholesterolemia and Other (Renal failure/peritoneal dialysis, left internal carotid artery stenosis)
ED Past Surgical History: Other (Dialysis catheter)
Social History
Tobacco: Non-smoker
Alcohol: None
Family History
Family History: Other (Reviewed and noncontributory)
Review of Systems
Review of Systems
All Other Systems: ROS reviewed and negative except as documented in HPI and ROS
Constitutional: Denies fever or chills
Respiratory: Denies cough or trouble breathing
Cardiac: Reports syncope; Denies chest pain
ABD/GI: Denies abdominal pain, nausea or vomiting
: Denies flank pain
Musculoskeletal: Denies edema, neck pain or back pain
Neurological: Denies dizzy or headache
Phy Exam
Physical Exam
Physical Exam:
General: Awake, alert, oriented x3; no acute distress
Head: Normocephalic, atraumatic
Eyes: Conjunctiva normal, pupils equal round reactive to light bilaterally
Throat: Airway intact, handling secretions
Neck: Trachea midline, supple without meningismus
Lungs: Clear to auscultation bilaterally, no wheezing, rales, rhonchi
Heart: Regular rate and rhythm, no murmurs, gallops, or rubs appreciated
Abd: Soft, peritoneal dialysis catheter in place, nontender
Neuro: No gross deficit
Extremities: Atraumatic, no edema in extremities, equal pulses in all extremities
Scores
Heart Failure Risk
Heart Failure Risk Score: Not Applicable
Heart Score for Chest Pain Patients
STEMI patient?: Not applicable
Withdrawal Assessment of Alcohol
Withdrawal Assessment Completed?: Not applicable
Course
Orders/Labs/Results
Orders:
Orders
08/09/24 17:25
EKG [Electrocardiogram (*1)] Urgent
Reason for Study: Syncope
08/09/24 17:26
EKG- Treatment ONCE
08/09/24 17:32
CMP [Comprehensive Metabolic Panel] Urgent
Complete Blood Count/With Diff Urgent
Abnormal Lab Results
08/09/24
17:32
RBC 3.12 L 10^6/uL
(4.70-6.10)
Hgb 10.4 L g/dL
(13.0-18.0)
Hct 30.9 L %
(39.0-52.0)
MCV 99.0 H fL
(80.0-94.0)
MCH 33.3 H pg
(27.0-31.0)
RDW 16.1 H %
(11.5-14.5)
Abs Immat Gran (auto) 0.1 H 10^3/uL
(0-0.05)
Absolute Monos (auto) 0.7 H 10^3/uL
(0.1-0.6)
Immature Gran % 0.7 H %
(0-0.5)
Lymphocytes % 20.0 L %
(20.5-51.1)
Chloride 95 L mmol/L
(98-107)
BUN 47 H mg/dl
(9-20)
Creatinine 10.1 H* mg/dL
(0.7-1.3)
Glucose 112 H mg/dl
(70-99)
AST 16 L U/L
(17-59)
08/09/24 17:32
08/09/24 17:32
Vital Signs
Initial and Last Documented VS:
Initial Vital Signs
Temp Pulse Resp BP Pulse Ox
36.1 C 72 12 128/55 100
08/09/24 17:27 08/09/24 17:27 08/09/24 17:27 08/09/24 17:27 08/09/24 17:27
Last Documented Vital Signs
Temp Pulse Resp BP Pulse Ox
36.1 C 70 12 122/53 100
08/09/24 17:27 08/09/24 18:15 08/09/24 18:15 08/09/24 18:00 08/09/24 18:15
MDM/Problems Addressed
Differential Diagnosis Includes:
Differential includes dysrhythmia, symptomatic carotid stenosis, valvular disease, vasovagal event, seizure
MDM/Problems Addressed:
79-year-old male presents for evaluation after loss of consciousness�passed out in the shower and had brisk return to baseline although had transient hypotension after the episode. There was reported 3 to 5 minutes of unresponsiveness total.
Vitals here are normal including blood pressure of 128/55, pulse in the 70s. Physical exam as above. EKG shows sinus rhythm with no AV block, no delta wave, no QT prolongation, no signs of Brugada syndrome. Labs sent in triage including a CBC
which shows stable anemia and a CMP which shows elevated BUN and creatinine in keeping with ESRD but normal electrolytes. Suspect symptoms may be related to known significant carotid stenosis, scheduled for surgery Friday. Given prolonged
duration of symptoms will admit for monitoring on telemetry. Discussed case with hospitalist for admission.
Chronic conditions affecting care:
Carotid stenosis
*Pulse Oximetry
Patient hypoxic: no
*EKG
Interpreted by ED Provider?: Yes
Heart Rate: 72
Rate: normal
Rhythm: sinus
[place]: left axis deviation
Interval: first degree heart block
QRS Pattern: wide non-specific
Ischemia: no ischemia
*Critical Care Note
Total Time (30-74mins, 75-104mins- exclusive of procedures): Not Applicable
Data Reviewed
Review of Other/Old Records Reveals: Labs, Records and Discharge Summary
Source: patient, records and ambulance crew
Patient Management
Social determinants of health affecting care: Living situation
Discussion with other providers: Hospitalist (Discussed with hospitalist)
Escalation/DeEscalation of care consider admission/obs:
Admission indicated
ED Attending Note
-
Portions of this chart may have been created with voice recognition software.� Occasional wrong word or��sound alike� substitutions may have occurred due to the inherent limitations of voice recognition software.
Discharge Plan
Departure
Patient Disposition: Admit
Date of Disposition: 08/09/24
Time of Disposition: 18:15
Admit to doctor: Sharlene
Presentation/result/management discussed w/ accepting MD/DO: Hospitalist
Discharge Problem:
Syncope
Prescriptions:
No Action
amiodarone 200 mg Tablet
200 mg PO DAILY
lisinopril 20 mg Tablet
40 mg PO DAILY
cyanocobalamin (vitamin B-12) 1,000 mcg Tablet
1,000 mcg PO DAILY
amlodipine 5 mg Tablet
5 mg PO DAILY
magnesium oxide 400 mg (241.3 mg magnesium) Tablet
400 mg PO DAILY
docusate sodium [Colace] 100 mg Capsule
100 mg PO DAILY
atorvastatin 40 mg Tablet
40 mg PO DAILY
levothyroxine 150 mcg Tablet
150 mcg PO DAILY
calcium carbonate 500 mg calcium (1,250 mg) Tablet,Chewable
500 mg PO TID
cholecalciferol (vitamin D3) [Vitamin D3] 25 mcg (1,000 unit) Tablet
25 mcg PO DAILY
Dialyvite 800 800 mcg Tablet,Chewable
1 tab PO DAILY
Eliquis 5 mg Tablet
5 mg PO BID 30 Days Qty: 60 0RF
clopidogrel 75 mg Tablet
75 mg PO DAILY 30 Days Qty: 30 0RF
Interventions
Interventions:
*Risk Screen - Suicide Last Done: 08/09/24 17:27
*General Assessment Last Done: 08/09/24 17:27
*Neglect/Abuse Screening Last Done: 08/09/24 17:27
*ED COVID-19 Vaccine History Last Done: 08/09/24 17:27
ED- Neurological Assessment Last Done: 08/09/24 17:30
Discharge Date and Time
Print Language: BENINESE
--- NOTE | 2024-08-09 18:40 | HPS.HSE ---
Family Physician
-
Family Physician: NOT KNOW UNKNOWN - PT DOES
Chief Complaint
-
Syncope
History of Present Illness
Patient is a 79 y/o male past medical history of recent left occipital stroke with severe left carotid stenosis, CAD, A-Fib, ESRD on PD who presents following a syncopal episode. Patient reports he was getting out of the shower when he developed
dizziness/lightheadedness. He has a daytime nurse who was with him in the bathroom who lowered him to the toilet where he then had a loss of consciousness which last for several minutes. Patient was found to be hypotensive when EMS arrived, and he
was brought to the emergency department for evaluation. Blood pressure has improved while in the emergency department. Patient denies any chest pains, or palpitations associated with the event.
Medical History
Past Medical History
Past Medical History: Reports Other
Additional Past Medical History:
Left Occipital Stroke
Severe Left Carotid Stenosis
Coronary Artery Disease s/p CABG
Paroxysmal Atrial Fibrillation
Heart Failure with Recovered Ejection Fraction
ESRD on Peritoneal Dialysis
Essential Hypertension
Hyperlipidemia
Hypothyroidism
Anemia of Chronic Kidney Disease
Past Surgical History: Reports None
Social History
Tobacco: Former Smoker
Alcohol: Occasional
Family History
Family History: Not pertinent
Allergies / Home Medications
Allergies reflects when Allergies were last updated in [employer].
Home Medications with original date entered in [employer]
Allergy/Medication List:
Allergies
Allergy/AdvReac Type Severity Reaction Status Date / Time
No Known Allergies Allergy Verified 08/09/24 17:36
Home Medications
amiodarone 200 mg tablet 200 mg PO DAILY Arrhythmia 07/28/24
amlodipine 5 mg tablet 5 mg PO DAILY Blood Pressure 07/28/24
atorvastatin 40 mg tablet 40 mg PO DAILY High Cholesterol 07/28/24
calcium carbonate 500 mg PO TID Gastrointestinal Issue 07/28/24
cholecalciferol (vitamin D3) 25 mcg (1,000 unit) tablet (Vitamin D3) 25 mcg PO DAILY Supplement 07/28/24
cyanocobalamin (vitamin B-12) 1,000 mcg tablet 1,000 mcg PO DAILY Supplement 07/28/24
docusate sodium 100 mg capsule (Colace) 100 mg PO DAILY Constipation 07/28/24
levothyroxine 150 mcg tablet 150 mcg PO DAILY Thyroid 07/28/24
lisinopril 20 mg tablet 40 mg PO DAILY Blood Pressure 07/28/24
magnesium oxide 400 mg (241.3 mg magnesium) tablet 400 mg PO DAILY Supplement 07/28/24
vitamin B complex-vitamin C-folic acid 800 mcg chewable tablet (Dialyvite 800) 1 tab PO DAILY Supplement 07/28/24
apixaban 5 mg tablet (Eliquis) 5 mg PO BID 30 days #60 tabs 08/04/24
clopidogrel 75 mg tablet 75 mg PO DAILY 30 days #30 tabs 08/04/24
Review of Systems
-
A 12 point ROS was completed and negative except as noted: Yes
Constitutional: Denies Fever or Chills
Respiratory: Denies Cough or Trouble Breathing
Cardiac: Denies Chest Pain or Palpitations
Physical Exam
Vital Signs
Vital Signs
Temp Pulse Resp BP Pulse Ox
97.0 F 70 12 122/53 100
08/09/24 17:27 08/09/24 18:30 08/09/24 18:15 08/09/24 18:00 08/09/24 18:30
Physical Exam
General: Comfortable and Conversant
HEENT: Anicteric and Moist mucous membranes
Respiratory: Clear and Non Labored Respirations
Cardiac: S1/S2, Regular Rhythm and Carotid Bruits (Left)
GI: Soft and Non Tender
Rectal: Deferred by Provider
Musculoskeletal: No Clubbing, No Cyanosis and No Edema
Skin: Warm and Dry
Neuro: Awake, Alert, Oriented and Nonfocal/grossly intact
Laboratory Results
-
08/09/24 17:32
08/09/24 17:32
Laboratory Results
Total Bilirubin 0.3 mg/dl (0.2-1.3) 08/09/24 17:32
AST 16 U/L (17-59) L 08/09/24 17:32
ALT 27 U/L (0-50) 08/09/24 17:32
Alkaline Phosphatase 72 U/L (38-126) 08/09/24 17:32
Data Reviewed
-
Medical Tests (Nuc Med, Echo, EKG etc): Report Reviewed by me
Lab Data: Labs Reviewed by me
Impression/Plan
-
Syncope
-Monitor on Telemetry
-Check orthostatic vital signs
Severe Left Carotid Stenosis
-Patient schedule for left transcarotid artery revascularization on FridayAug 11
Left Occipital Stroke
-Continue Plavix
Coronary Artery Disease s/p CABG
-Continue Plavix
Paroxysmal Atrial Fibrillation
-Eliquis on hold for carotid revascularization
-Continue amiodarone for rhythm control
ESRD on Peritoneal Dialysis
-Consult Nephrology
-Monitor Is&Os and Daily Weights
Essential Hypertension
-Hold amlodipine and lisinopril due hypotension noted during event
Hyperlipidemia
-Continue atorvastatin
Anemia of Chronic Kidney Disease
-Hgb stable
Hypothyroidism
-Continue levothyroxine
DVT proph: SCDs until able to resume Eliquis
Code Status: Full Code
--- NOTE | 2024-08-09 19:50 | PTCARENOTE ---
P arrived from ED via stretcher, transferred to bed. Pt states 'I usually walk around with a cane.' aaox3, cooperative. denies pain, sob or nausea. oriented to room. call molina within reach.
--- NOTE | 2024-08-09 20:23 | W.PN.UPDATE ---
Update Note
Progress Note Update
This is an addendum to the H&P written by Imelda Ma on 08/09/2024. Patient seen and examined independently with PA.
79-year-old male past medical history of recent embolic left occipital stroke on Eliquis, severe left carotid artery stenosis, CAD status post CABG, chronic HFrEF with recovered ejection fraction, paroxysmal atrial fibrillation on Eliquis, ESRD on
peritoneal dialysis, hypothyroidism, hyperlipidemia, presenting for syncopal episode preceded by dizziness as he was getting out of the shower. He reports lisinopril was increased from 20 to 40 mg a few weeks ago prior to recent hospitalization.
He was hypotensive for EMS. Blood pressure has been normal here
Syncope appears to be secondary to orthostatic hypotension. Check orthostatic vital signs. Hold blood pressure medications for now.
Nephrology consulted for routine peritoneal dialysis. Patient is scheduled to have TCAR in 2 days by vascular surgery. Vascular consulted and they recommended holding Eliquis and continuing Plavix. Start heparin drip due to recent embolic CVA and
high risk for recurrent CVA.
[2024-08-09 20:51] LABS: Hematocrit 28.6 % (39.0-52.0); Hemoglobin 9.8 g/dL (13.0-18.0); Mean Corp Hgb Conc. 34.3 g/dL (33.0-37.0); Mean Corpuscular Volume 102.1 fL (80.0-94.0); Mean Platelet Volume 9.9 fL (7.4-10.4); Platelet Count 310 10^3/uL (130-400); Red Cell Dist. Width 15.7 % (11.5-14.5); White Blood Cell Count 9.6 10^3/uL (4.8-10.8)
[2024-08-09] MEDS: OSCAL CAL 500 500 MG PO (21:19)
[2024-08-09] MEDS: HEPARIN 25000 UNITS/250 ML IV (21:21)
[2024-08-10] VITALS (20 sets, daily range): BP systolic 87–141; BP diastolic 41–84; PULSE 69–92; BMI 23.4
[2024-08-10] MEDS: SYNTHROID 150 MCG PO (04:14)
[2024-08-10 04:19] LABS: Hematocrit 27.5 % (39.0-52.0); Hemoglobin 9.5 g/dL (13.0-18.0); Mean Corp Hgb Conc. 34.5 g/dL (33.0-37.0); Mean Corpuscular Hgb 33.6 pg (27.0-31.0); Mean Corpuscular Volume 97.2 fL (80.0-94.0); Mean Platelet Volume 9.8 fL (7.4-10.4); Platelet Count 321 10^3/uL (130-400); Red Blood Cell Count 2.83 10^6/uL (4.70-6.10); Red Cell Dist. Width 15.8 % (11.5-14.5); White Blood Cell Count 8.1 10^3/uL (4.8-10.8)
[2024-08-10 04:27] LABS: APTT 130.2 Sec (23.4-35.0)
[2024-08-10 05:01] LABS: TSH Reflex To Free T4 2.51 uIU/ml (0.47-4.68)
[2024-08-10 05:10] LABS: Blood Urea Nitrogen 53 mg/dl (9-20); Carbon Dioxide 26 mmol/L (22-30); Chloride 98 mmol/L (98-107); Estimated Creatinine Clearance 5 ml/min; Glucose 94 mg/dl (70-99); Potassium 4.4 mmol/L (3.5-5.1); Sodium 137 mmol/L (135-145)
--- NOTE | 2024-08-10 08:06 | W.CON.NEPH ---
Consultation
-
Date/Time Consultation Requested: 08/10/2024 7:30 AM
Date/Time Consultation Performed: 08/10/2024 8:00 AM
Requesting Provider: Dr. Todd
Performing Provider: Dr. Brown
Reason for Consultation: ESRD
Medical History
-
Chief Complaint: ESRD/PD
History of Present Illness:
79-year-old male past medical history of CAD status post CABG, paroxysmal atrial fibrillation(maintained on amiodarone and anticoagulated with Eliquis), HFrEF, ESRD on peritoneal dialysis, hypertension (maintained on amlodipine and lisinopril),
hypercholesteremia, hypothyroidism. The patient had just been admitted a few weeks prior after suffering a left occipital stroke with severe left carotid stenosis. The patient presented last evening after having onset of dizziness and
lightheadedness. He was noted to lose consciousness per his daytime nurse while he was in the bathroom. He was also profoundly hypotensive when EMS arrived. His blood pressure was stable when admitted to the emergency room. He denied any
associated chest pain or shortness of breath. Nephrology was consulted for his end-stage renal disease management with peritoneal dialysis
Past Medical History
End-stage renal disease on peritoneal dialysis
Coronary artery disease with history of CABG
Paroxysmal atrial fibrillation on chronic anticoagulation
HFpEF
Hypothyroidism
Hyperphosphatemia
Anemia
Dyslipidemia
Left occipital stroke with severe left carotid artery stenosis
Social History
Tobacco: Non-Smoker
Alcohol: None
Drug: None
Family History
no ckd
Allergies / Home Medications
Allergy/AdvReac Type Severity Reaction Status Date / Time
No Known Allergies Allergy Verified 08/09/24 17:36
�Medication �Instructions �Recorded �Confirmed �Type
amiodarone 200 mg tablet 200 mg PO DAILY Arrhythmia 07/28/24 08/09/24 History
amlodipine 5 mg tablet 5 mg PO DAILY Blood Pressure 07/28/24 08/09/24 History
atorvastatin 40 mg tablet 40 mg PO DAILY High Cholesterol 07/28/24 08/09/24 History
calcium carbonate 500 mg PO TID Gastrointestinal 07/28/24 08/09/24 History
Issue
cholecalciferol (vitamin D3) 25 25 mcg PO DAILY Supplement 07/28/24 08/09/24 History
mcg (1,000 unit) tablet (Vitamin
D3)
cyanocobalamin (vitamin B-12) 1,000 mcg PO DAILY Supplement 07/28/24 08/09/24 History
1,000 mcg tablet
docusate sodium 100 mg capsule 100 mg PO DAILY Constipation 07/28/24 08/09/24 History
(Colace)
levothyroxine 150 mcg tablet 150 mcg PO DAILY Thyroid 07/28/24 08/09/24 History
lisinopril 20 mg tablet 40 mg PO DAILY Blood Pressure 07/28/24 08/09/24 History
magnesium oxide 400 mg (241.3 mg 400 mg PO DAILY Supplement 07/28/24 08/09/24 History
magnesium) tablet
vitamin B complex-vitamin C-folic 1 tab PO DAILY Supplement 07/28/24 08/09/24 History
acid 800 mcg chewable tablet
(Dialyvite 800)
apixaban 5 mg tablet (Eliquis) 5 mg PO BID 30 days #60 tabs 08/04/24 08/09/24 Rx
clopidogrel 75 mg tablet 75 mg PO DAILY 30 days #30 tabs 08/04/24 08/09/24 Rx
Review of Systems
-
All other systems: Negative unless noted
EENT: No Symptoms
Respiratory: No Symptoms
Cardiac: No Symptoms
Abdomen/GI: No Symptoms
: No Symptoms
Musculoskeletal: No Symptoms
Neurological: No Symptoms
Physical Exam
Vital Signs
Vital Signs
Temp Pulse Resp BP Pulse Ox
97.8 F 72 9 136/70 97
08/10/24 07:40 08/10/24 07:00 08/10/24 07:00 08/10/24 04:40 08/10/24 07:00
Lab Results
WBC 8.1 10^3/uL (4.8-10.8) 08/10/24 03:56
RBC 2.83 10^6/uL (4.70-6.10) L 08/10/24 03:56
Hgb 9.5 g/dL (13.0-18.0) L 08/10/24 03:56
Hct 27.5 % (39.0-52.0) L 08/10/24 03:56
Plt Count 321 10^3/uL (130-400) 08/10/24 03:56
Sodium 137 mmol/L (135-145) 08/10/24 03:56
Potassium 4.4 mmol/L (3.5-5.1) 08/10/24 03:56
Chloride 98 mmol/L (98-107) 08/10/24 03:56
Carbon Dioxide 26 mmol/L (22-30) 08/10/24 03:56
BUN 53 mg/dl (9-20) H 08/10/24 03:56
Creatinine 10.1 mg/dL (0.7-1.3) H* 08/10/24 03:56
eGFR 4.80 08/10/24 03:56
Glucose 94 mg/dl (70-99) 08/10/24 03:56
Calcium 9.0 mg/dl (8.4-10.2) 08/10/24 03:56
Albumin 4.0 g/dl (3.5-5.0) 08/09/24 17:32
Physical Exam
General: AOx3, Nontoxic , NAD
HEENT: PERRL, EOMI, Anicteric, Conjunctivae Clear, Ear/Nose Intact, Hearing Normal, Oropharynx Clear/Moist, Dentition Intact, Facial Symmetry, Neck Supple, Neck: Trachea Midline, No JVD and No Thyromegaly, no Bruits
Respiratory: Clear to auscultation bilaterally with normal lung exersion
Cardiac: S1/S2 and Regular Rate/Rhythm
Breast: Deferred by me
Abdomen: Soft, Nontender, Nondistended, Normal Bowel Sounds and No Hepatosplenomegaly, PD catheter
Rectal: Deferred by Provider
Genito-urinary: No Costovertebral Tenderness
Extremities: No Clubbing, No Cyanosis and No Edema
Skin: No Rash or open lesions
Neuro: Nonfocal/Grossly Intact, CN II-XII (Intact) and Strength (Musculoskeletal exam 5 out of 5 both upper and lower extremities)
Hematologic/Lymphatic: No Cervical Lymphadenopathy, No Submandibular Lymphadenopathy and No Supraclavicular Lymphadenopathy
Psych: Mood/afflect pleasant, Insight/judgement good and Appropriate
Vascular: plus 2 pedal and radial pulses
Data Reviewed
-
CT Scan: Report Reviewed by me (Head CT notes no acute intracranial abnormality old right frontal lobe infarct of 4 cm stable)
Labs: Labs Reviewed by me (BMP CBC)
Old Records: Reviewed (Reviewed previous consultation from nephrology on 07/28/2024 when patient presented with stroke)
Assessment/Plan
-
Impression:
Syncope
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
Left carotid stenosis
End-stage renal disease on peritoneal dialysis
Hypertension
Paroxysmal atrial fibrillation
Hyperphosphatemia
Anemia
History of CABG
h/o bilat CEA at [facility]
Plan:
-PD orders provided
-prescription to every 4 hours exchanges with 1.5/2.5
-stable resp status on RA
-Can provide ROMI intermittently for anemia of chronic kidney disease
-Amlodipine and lisinopril currently held in setting of hypotension
-Maintain calcium acetate with meals in regards to hyperphosphatemia
-Fluid restriction at 1200 cc daily, low sodium and potassium diet
[2024-08-10] MEDS: COLACE 100 MG PO (09:09)
[2024-08-10] MEDS: LIPITOR 40 MG PO (09:10)
[2024-08-10] MEDS: OSCAL CAL 500 500 MG PO ×3 (09:10→21:43)
[2024-08-10] MEDS: PACERONE 200 MG PO (09:10)
[2024-08-10] MEDS: MAGNESIUM OXIDE 500 MG PO (09:10)
[2024-08-10] MEDS: VITAMIN D3 (cholecalciferol) 25 MCG PO (09:11)
[2024-08-10] MEDS: VITAMIN B-12 1000 MCG PO (09:11)
[2024-08-10] MEDS: PLAVIX 75 MG PO (09:11)
--- NOTE | 2024-08-10 09:24 | W.PN.HOSP.TC ---
Today's Communication/Plan
-
Hold antihypertensives.
Orthostatic vitals.
Vascular evaluation
IV heparin while off Eliquis
Start PPI
PD as per schedule
Assessment / Plan
Assessment / Plan
Impression:
Presentation with syncope.
Conditions prior to admission:
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
Left carotid artery stenosis.
History of bilateral CEA at [place]
CAD with history of CABG
PAD
ESRD on PD.
Hypertension
Paroxysmal atrial fibrillation
Anticoagulation with Eliquis.
Dyslipidemia
anemia of CKD.
Hypothyroidism on replacement
Former smoker
Plan:
Syncope with prodrome.
Less likely cardiogenic.
Suspect orthostatic hypotension and carotid artery stenosis playing a role.
Monitor for orthostasis.
Hold preadmission antihypertensive regimen including amlodipine, lisinopril
Carotid artery stenosis.
Recent CTA: Severe mixed soft and calcific plaque at the left carotid bifurcation resulting in focal near complete occlusion of the proximal left internal carotid artery.
Patient is scheduled for elective revascularization on August 11
Vascular surgery consult
Anticoagulation has been bridged with IV heparin/off Eliquis in preparation for revascularization.
End-stage renal disease.
Nephrology consult
Continue PD'
Anemia of CKD.
Hemoglobin stable.
Paroxysmal atrial fibrillation
EKG normal sinus rhythm.
Continue amiodarone
Recent occipital CVA pain
No focal findings or new neurologic complaints upon presentation
CT scan of the head with no acute abnormalities. Stable right frontal lobe infarct
Continue Plavix
CAD with history of CABG.
Continue Plavix, statin
Start PPI for GI prophylaxis (ongoing antiplatelet therapy and systemic anticoagulation)
DNR.
DVT prophylaxis heparin/Eliquis
Anticipated Discharge: > 48 hours
Subjective/Interval History
-
Date of Service: August 10, 2024
Objective Data
-
Labs:
Laboratory Results
08/10/24 08/10/24
03:56 10:55
WBC 8.1
Hgb 9.5 L
Hct 27.5 L
Plt Count 321
APTT 130.2 H Pending
Sodium 137
Potassium 4.4
Chloride 98
Carbon Dioxide 26
BUN 53 H
Creatinine 10.1 H*
Glucose 94
Calcium 9.0
Vital Signs:
Vital Signs
Temp Pulse Resp BP Pulse Ox
97.8 F 71 9 128/56 97
08/10/24 07:40 08/10/24 09:10 08/10/24 07:00 08/10/24 09:10 08/10/24 07:00
I&O
08/09/24 08/10/24 08/11/24
06:59 06:59 06:59
Output Total 250 / 250
Balance -250 / -250
Physical Exam
-
General: Well Developed and No Apparent Distress
HEENT: Normocephalic, Atraumatic and Moist Mucous Membranes
Respiratory: Clear to Auscultation
Cardiac: Regular Rhythm and S1/S2; Negative Murmur, Rub or Gallop
GI: Soft, Nontender, Nondistended and Normal Bowel Sounds; Negative Organomegaly
Rectal: Deferred by Provider
Musculoskeletal: No Clubbing, No Cyanosis and No Edema
Skin: Negative Rash
Neuro: Awake, Alert, Oriented, AO x 3 and Nonfocal/Grossly Intact
[2024-08-10] MEDS: PROTONIX 40 MG PO (10:05)
--- NOTE | 2024-08-10 10:07 | W.PN.UPDATE ---
Update Note
Progress Note Update
Patient seen at bedside this a.m. Resting comfortably in bed. No complaints at this time patient states he feels at his baseline. Patient was admitted overnight for a syncopal episode at home that was witnessed by his home nurse. Patient did not
fall. Patient states he has had multiple syncopal episodes over the past few years. His blood pressure is relatively soft this morning, all other vital signs stable. He follows all commands and is neurologically intact. I spoke with hospitalist
who agrees patient is stable and cleared for tomorrow's planned TCAR with Dr. Nickerson.
--- NOTE | 2024-08-10 16:51 | CM ---
Patient with Hx ESRD on PD with Dx Syncope with prodrome, Carotid artery stenosis. Plan TCAR/Transcarotid Artery Revasc tomorrow. Room air. Receiving IV Abx, Heparin gtt.
Met with patient;
the patient resides alone in a mobile home with ramp entrance.
Son Hossein who is POA lives in 1 story house at same location.
The patient requires assistance with ADLs and ambulates independently sometimes using SPC.
Patient is assisted with a bath once weekly by Luzma, private pay caregiver.
There are 3 private pay caregivers who assist patient with daily PD, Berta Segal & Mackenzie.
Patient obtains PD supplies from [facility].
DME - SPC, RW, w/c
Current with [facility] for PT and wishes to resume.
Prior [facility]
PCP - Iliana Hoang
Pharmacy - [facility]
The patient has 5 children.
Patient may benefit from PT/OT Evals post op.
Plan request PT/OT post op.
Plan probable home with resumption [facility].
--- NOTE | 2024-08-10 17:31 | PTCARENOTE ---
Patient tolerating PD this shift. Initial drain 2400, second 1999. Patient is on Heparin drip, for OR tomorrow. Eating dinner, NPO after midnight. Orthostatic vital signs positive, hospitalist notified.
[2024-08-10 18:22] LABS: APTT 60.6 Sec (23.4-35.0)
[2024-08-11] VITALS (21 sets, daily range): BP systolic 91–154; BP diastolic 52–79; PULSE 70–89; BMI 22.6; BMI 23.8
[2024-08-11 00:46] LABS: APTT 153.4 Sec (23.4-35.0)
[2024-08-11] MEDS: TUMS CHEWABLE TABLET 200 MG PO ×2 (02:01→02:34)
[2024-08-11] MEDS: HEPARIN 25000 UNITS/250 ML IV (04:43)
[2024-08-11] MEDS: SYNTHROID 150 MCG PO (05:52)
[2024-08-11 06:09] LABS: Hematocrit 26.2 % (39.0-52.0); Hemoglobin 8.9 g/dL (13.0-18.0); Mean Corpuscular Hgb 33.3 pg (27.0-31.0); Mean Corpuscular Volume 98.1 fL (80.0-94.0); Mean Platelet Volume 9.8 fL (7.4-10.4); Platelet Count 330 10^3/uL (130-400); Red Blood Cell Count 2.67 10^6/uL (4.70-6.10); Red Cell Dist. Width 15.8 % (11.5-14.5); White Blood Cell Count 9.9 10^3/uL (4.8-10.8)
[2024-08-11] MEDS: PERIDEX 0.12% ORAL RINSE 15 ML PO (06:15)
[2024-08-11 06:55] LABS: Blood Urea Nitrogen 55 mg/dl (9-20); Calcium 8.5 mg/dl (8.4-10.2); Carbon Dioxide 26 mmol/L (22-30); Chloride 97 mmol/L (98-107); Estimated Creatinine Clearance 6 ml/min; Glucose 128 mg/dl (70-99); Potassium 4.1 mmol/L (3.5-5.1); Sodium 136 mmol/L (135-145); eGFR 5.04
--- NOTE | 2024-08-11 07:27 | PTCARENOTE ---
Patient awake most of the night. Tolerating PD. NPO since midnight for surgery. CHG bath and mouth wash done. Pre-op abx in . Tolerating Heparin gtt, titrated per protocol per the worklist. Denies any pain. Turning self while in bed.
Orthostatics done, denies any dizziness. Tele showing NSR w/ 1st degree AVB.
[2024-08-11 08:21] LABS: INR 1.11; PT 14.8 Sec (11.4-14.6)
[2024-08-11] MEDS: BACTROBAN 2% OINTMENT 1 APPLIC NASAL (09:31)
--- NOTE | 2024-08-11 09:36 | PTCARENOTE ---
Assumed care for patient during the day. Received report from RN. Pt normal sinus w/ 1st degree AVB. 98% on room air. Pt to vascular OR for TCAR. Called and gave report to RN. PO meds administered. Heparin gtt stopped at 1000 for procedure. CHG
wiped and ordered nasal abx given. PD RLQ site dressing changed. Patient receiving peritoneal dialysis nephrology okay to resume as scheduled after procedure. Pt appears to be resting comfortably, call molina is within reach.
[2024-08-11] MEDS: OSCAL CAL 500 500 MG PO ×2 (09:51→16:31)
[2024-08-11] MEDS: PROTONIX 40 MG PO (09:51)
[2024-08-11] MEDS: LIPITOR 40 MG PO (09:51)
[2024-08-11] MEDS: PLAVIX 75 MG PO (09:51)
[2024-08-11] MEDS: COLACE 100 MG PO (09:51)
[2024-08-11] MEDS: VITAMIN B-12 1000 MCG PO (09:51)
[2024-08-11] MEDS: VITAMIN D3 (cholecalciferol) 25 MCG PO (09:51)
[2024-08-11] MEDS: MAGNESIUM OXIDE 500 MG PO (09:51)
[2024-08-11] MEDS: PACERONE 200 MG PO (09:52)
--- NOTE | 2024-08-11 10:13 | W.PN.NEPH.PH ---
Today's Communication / Plan
-
PD
Assessment/Plan
-
Impression:
Syncope
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
Left carotid stenosis
End-stage renal disease on peritoneal dialysis
Hypertension
Paroxysmal atrial fibrillation
Hyperphosphatemia
Anemia
History of CABG
h/o bilat CEA at [place]
Plan:
PD orders provided
prescription exchange every 4 hours with 1.5/2.5
Amlodipine and lisinopril currently held in setting of hypotension
for OR today, can go to OR with drained abdomen
-
-
Date of Service: August 11, 2024
CC / HPI / ROS
-
Chief Complaint:
ESRD
History of Present Illness:
PD in progress
BP improved off BP meds
for OR carotids TCAR
Review of Systems:
no CP/SOB
Labs
-
Labs:
WBC 9.9 10^3/uL (4.8-10.8) 08/11/24 05:50
RBC 2.67 10^6/uL (4.70-6.10) L 08/11/24 05:50
Hgb 8.9 g/dL (13.0-18.0) L 08/11/24 05:50
Hct 26.2 % (39.0-52.0) L 08/11/24 05:50
Plt Count 330 10^3/uL (130-400) 08/11/24 05:50
Sodium 136 mmol/L (135-145) 08/11/24 05:50
Potassium 4.1 mmol/L (3.5-5.1) 08/11/24 05:50
Chloride 97 mmol/L (98-107) L 08/11/24 05:50
Carbon Dioxide 26 mmol/L (22-30) 08/11/24 05:50
BUN 55 mg/dl (9-20) H 08/11/24 05:50
Creatinine 9.7 mg/dL (0.7-1.3) H* 08/11/24 05:50
eGFR 5.04 08/11/24 05:50
Glucose 128 mg/dl (70-99) H 08/11/24 05:50
Calcium 8.5 mg/dl (8.4-10.2) 08/11/24 05:50
Albumin 4.0 g/dl (3.5-5.0) 08/09/24 17:32
Physical Exam
-
Vital Signs:
Vital Signs
Temp Pulse Resp BP Pulse Ox
98.8 F 72 9 139/55 95
08/11/24 07:33 08/11/24 09:52 08/11/24 09:15 08/11/24 09:52 08/11/24 09:15
Cardiovascular:: Regular rate and rhythm
Respiratory:: Bilateral: CTA
Lung Excursion:: Normal
Abdomen:: Nontender and Soft
Bowel Sounds:: Normal
Extremity Edema:: None: Bilateral:
--- NOTE | 2024-08-11 10:39 | PTCARENOTE ---
Pt to vascular OR. Transported via stretcher with abx and chart.
--- NOTE | 2024-08-11 10:42 | W.SUR.PREOP ---
Pre-Operative Surgical Note
-
I have examined this patient prior to the performance of the scheduled procedure.
The patient's condition is unchanged from the time of the current History and
Physical and the patient is able to undergo the scheduled procedure.
Discussed procedure again of left TCAR with the patient. Discussed risks of bleeding, infection, cardiac complication/IN, cranial nerve injury, stroke. He understands all wishes to proceed.
[2024-08-11 12:35] LABS: ACT-LR - POC 285 Seconds (116-155)
--- NOTE | 2024-08-11 13:00 | PTCARENOTE ---
Report given to Paramjit [facility] ICU. All patients belongings taken to [facility], [id number].
--- NOTE | 2024-08-11 13:14 | W.SUR.POST ---
Surgical Immediate Post Op
Note
Pre Op Diagnosis: Carotid stenosis
Post Op Diagnosis: same
Procedure Performed: Left TCAR
Primary Surgeon: Krishan
Assist: Nolberto RAMOS
Anesthesia: general
Estimated Blood Loss: 5cc
Fluids: see anesthesia flow sheet
Drains/Shunts: none
Specimens/Cultures: none
Doppler/Duplex/Angio (Y/N): Y
Complications: none
Operative Findings: Woke from anesthesia moving all extremities
[2024-08-11 13:46] LABS: Hemoglobin 8.6 g/dL (13.0-18.0); Mean Corp Hgb Conc. 34.4 g/dL (33.0-37.0); Mean Corpuscular Volume 101.6 fL (80.0-94.0); Mean Platelet Volume 9.8 fL (7.4-10.4); Platelet Count 269 10^3/uL (130-400); Red Blood Cell Count 2.46 10^6/uL (4.70-6.10); Red Cell Dist. Width 15.7 % (11.5-14.5); White Blood Cell Count 9.6 10^3/uL (4.8-10.8)
[2024-08-11 13:57] LABS: INR 1.05; PT 14.2 Sec (11.4-14.6)
[2024-08-11 13:58] LABS: APTT 42.1 Sec (23.4-35.0)
[2024-08-11] MEDS: SUBLIMAZE 50 MCG IV (14:02)
--- NOTE | 2024-08-11 14:08 | OR.RPT ---
Operative Report
Operative Report
PROCEDURE DATE: 08/11/2024
Preoperative diagnosis: Symptomatic left carotid artery stenosis (status post prior left carotid endarterectomy).
Postoperative diagnosis: same
Procedure:
1. Open exposure of left common carotid artery.
2. Transcarotid left carotid artery revascularization with stent (TCAR) with Enroute 9mm x 7mm x 40mm tapered self-expanding stent, and utilizing Enroute OTOLARYNGOLOGY TEACHER flow reversal intraprocedural neuro protection. Left carotid angioplasty prior to stent
placement with 5 mm x 3 cm angioplasty balloon.
3. Intraoperative EEG/SSEP monitoring.
4. Supervision and interpretation
CPT code 76096, [facility] TCAR #[id number]
Surgeon: Krishan
Program Director [employer]: RACHEL Arvizu, required for all aspects of procedure including assistance with traction/countertraction, following of suture line, assistance with closure.
Complications: None
Anesthesia: General
Indications for procedure:
Symptomatic left carotid stenosis (recurrent stenosis). History of left carotid endarterectomy prior, at outside institution. Had been completed a couple years prior. Came in with acute CVA symptoms. Imaging demonstrated severe left internal
carotid artery proximal stenosis. Given scarred left neck, risk/benefit/alternatives of TCAR were fully discussed. Patient understood all wished to proceed.
Description of procedure:
Patient was identified brought to the operating room placed on the table in supine position. After the adequate administration of anesthesia and perioperative antibiotics he was prepped and draped in the standard surgical fashion. A standard
preoperative timeout was undertaken and everybody was in agreement the plan. A longitudinal incision was made at the base of the left neck between the heads of the sternocleidomastoid muscle just superior to the clavicle. This incision was carried
through the skin subcutaneous tissue. Using the electrocautery dissection was carried through the platysma muscle layer and then in the plane between the heads of the sternocleidomastoid muscle. Then using a combination of sharp dissection with
the Metzenbaum scissors and electrocautery I dissected along the anterior medial border of the internal jugular vein. The common carotid artery was identified and carefully dissected away from the surrounding structures take great care to avoid any
injury to the structures. A vessel loop was passed around it. Care was taken avoid any injury to the vagus nerve. The common carotid artery was dissected circumferentially only in the proximal portion of the exposed artery, and the anterior
surface was dissected for another 2 cm. Next, a 5-0 Prolene pursestring stitch was placed on the anterior middle surface of the common carotid artery at the anticipated puncture/cannulation site. The patient was given 6000 units of intravenous
heparin.
Next, the right common femoral vein was punctured with a micropuncture kit under direct duplex ultrasound guidance. An 8 [place] venous sheath was placed over 0.035 inch wire into the vein. The sheath was flushed.
Next, while maintaining anterior tension on the vessel loop (single looped), the common carotid artery was punctured with a micropuncture needle (premarked) to only 1 cm and a premarked 0.018 inch wire was inserted and then the needle was exchanged
out for a premarked micropuncture sheath and advanced to 3 cm aurelia. The dilator and wire were then removed. Left anterior oblique angiogram was performed. This delineated the carotid bifurcation. It confirmed the severe stenosis in the proximal
internal carotid artery. The carotid bifurcation was marked on the screen, as well as the external carotid artery. I then used my 0.018 inch wire and advanced it into the external carotid artery under direct fluoroscopy. I then reintroduced the
introducer for the micropuncture sheath and advanced a micropuncture sheath into the external carotid artery. I did perform angiography to confirm that I was indeed in the external carotid artery. At this point, I then advanced a 0.035 inch wire
with a J curve at the tip. I then exchanged for an [address] [place] [address] sheath, which was advanced to the footplate under fluoroscopy. Once advanced to the footplate, the introducer and wire were removed. The tension from the vessel loop
was released. And the sheath was secured to the skin with silk suture. The sheath was burped back and also flushed carefully. Next repeat imaging was undertaken confirming the best angulation of the gantry for imaging. At this point, the
angioplasty balloon and stent were prepared. We pause to confirm the plan regarding balloon/stent, and confirmed adequate ACT over 250. Next, I connected the arterial sheath to the venous sheath with the filter section. As such passive flow
reversal was initiated. There were no evidence of any EEG or SSEP changes. We flushed the venous sheath to confirm adequate passive flow reversal.
At this point given that we were otherwise ready, I tightened my double looped vessel loop on the common carotid artery thereby initiating active flow reversal. (Prior of note I confirmed optimization of blood pressure with anesthesiology
colleagues, and glycopyrrolate had also been given). Again I flushed the venous sheath to confirm active flow reversal. There was no EEG or SSEP changes. I now used a precurved 0.014 inch wire and roadmap assisted fluoroscopy guidance to
cannulate the internal carotid artery carefully. I was able to gain access into the distal cervical/proximal intracranial internal carotid artery. Next I used a balloon which was a 5 mm x 30 mm Viatrac standard angioplasty balloon. I then
pre-angioplastied the stenosis. I then quickly exchanged out my balloon catheter for the stent (9mm x 7mm x 40mm tapered Enroute stent). The stent was positioned under roadmap guidance. When I was happy with the positioning I then unsheathed in
the standard fashion. The stent delivery device was then removed. Completion angiography was undertaken after 1 to 2 minutes of waiting after deployment of the stent for the flow reversal to take effect. Completion angiogram demonstrated
excellent result and it was done in 2 obliquities to confirm. No residual stenosis was noted. Good intracranial filling was noted. At this point I was very satisfied. The 0.014 inch wire was then removed from the internal carotid artery. Next,
the common carotid artery was unclamped. Finally I disconnected the flow reversal circuit.
Now, I tied down my 5-0 Prolene pursestring suture on the common carotid artery while removing the sheath. We gave protamine to reverse the heparin. I irrigated the incision site and confirmed full hemostasis. Then, we closed in layers using
single [id number] 2-0 Vicryl to reapproximate the sternocleidomastoid heads. Then used 3-0 Vicryl platysma muscle running layer followed by 4-0 Monocryl subcuticular running stitch. Dermabond was applied. The femoral vein sheath was also
removed and manual pressure was applied to that site and hemostasis was noted there as well. The patient tolerated the procedure well. He awoke moving all 4 extremities to command.
[2024-08-11 14:13] LABS: Blood Urea Nitrogen 47 mg/dl (9-20); Calcium 8.1 mg/dl (8.4-10.2); Carbon Dioxide 26 mmol/L (22-30); Chloride 97 mmol/L (98-107); Estimated Creatinine Clearance 6 ml/min; Glucose 114 mg/dl (70-99); Potassium 3.8 mmol/L (3.5-5.1); Sodium 136 mmol/L (135-145); eGFR 5.04
[2024-08-11] MEDS: NSS 1000 IV (15:04)
--- NOTE | 2024-08-11 15:33 | CON.INTV ---
Consultation
Consultation Request
Date/Time Consultation Requested: 08/11/2024
Date/Time Consultation Performed: 08/11/2024
Requesting Provider: Dr. Nickerson
Performing Provider: Dr. Que Rodriguez
Reason for Consultation: Status post left TCAR
Medical History
-
History of Present Illness:
79-year-old man with past medical history of recent left occipital CVA with left severe left carotic stenosis, coronary artery disease, atrial fibrillation, end-stage renal disease on peritoneal dialysis who presented after having a syncopal episode.
Patient was already known by Dr. Nickerson from vascular surgery. He was scheduled for revascularization on 08/11/2024.
Surgery underwent without complication. Currently in the critical care unit for postoperative monitoring.
Arterial line placement
Denies any headache or blurry vision.
Moving 4 extremities-
Denies any significant shortness of breath
Denies stridor pain is relatively controlled
Past Medical History
Past Medical History: Other (See assessment)
Social History
Tobacco: Former Smoker
Alcohol: Occasional
Family History
Family History: Reviewed & Not Pertinent
Allergies / Home Medications
Allergies
Allergy/AdvReac Type Severity Reaction Status Date / Time
No Known Allergies Allergy Verified 08/09/24 17:36
Home Medications
�Medication �Instructions �Recorded �Confirmed �Last Taken �Type
amiodarone 200 mg tablet 200 mg PO DAILY Arrhythmia 07/28/24 08/09/24 08/09/24 History
amlodipine 5 mg tablet 5 mg PO DAILY Blood Pressure 07/28/24 08/09/24 08/09/24 History
atorvastatin 40 mg tablet 40 mg PO DAILY High Cholesterol 07/28/24 08/09/24 08/09/24 History
calcium carbonate 500 mg PO TID Gastrointestinal 07/28/24 08/09/24 08/09/24 History
Issue
cholecalciferol (vitamin D3) 25 25 mcg PO DAILY Supplement 07/28/24 08/09/24 08/09/24 History
mcg (1,000 unit) tablet (Vitamin
D3)
cyanocobalamin (vitamin B-12) 1,000 mcg PO DAILY Supplement 07/28/24 08/09/24 08/09/24 History
1,000 mcg tablet
docusate sodium 100 mg capsule 100 mg PO DAILY Constipation 07/28/24 08/09/24 08/09/24 History
(Colace)
levothyroxine 150 mcg tablet 150 mcg PO DAILY Thyroid 07/28/24 08/09/24 08/09/24 History
lisinopril 20 mg tablet 40 mg PO DAILY Blood Pressure 07/28/24 08/09/24 08/09/24 History
magnesium oxide 400 mg (241.3 mg 400 mg PO DAILY Supplement 07/28/24 08/09/24 08/09/24 History
magnesium) tablet
vitamin B complex-vitamin C-folic 1 tab PO DAILY Supplement 07/28/24 08/09/24 08/09/24 History
acid 800 mcg chewable tablet
(Dialyvite 800)
clopidogrel 75 mg tablet 75 mg PO DAILY 30 days #30 tabs 08/04/24 08/09/24 08/09/24 Rx
apixaban 5 mg tablet (Eliquis) 5 mg PO BID Blood Clot 08/11/24 08/09/24 08/09/24 History
Prevention/Tx
Review of Systems
-
History Source: Patient
All other systems: Negative unless noted
Vitals / Labs / Diagnostic Testing
Vital Signs
Temp Pulse Resp BP Pulse Ox
97.4 F 78 8 138/67 100
08/11/24 15:01 08/11/24 14:45 08/11/24 14:45 08/11/24 14:45 08/11/24 14:45
Lab Data
08/11/24 13:35
08/11/24 13:35
Laboratory Results
08/10/24 08/11/24 08/11/24
18:03 00:23 06:00
PT
INR
APTT 60.6 H 153.4 H* Cancelled
08/11/24 08/11/24 08/11/24
07:00 07:41 13:35
PT 14.8 H 14.2
INR 1.11 1.05
APTT Cancelled 76.0 H 42.1 H
Diagnostic Testing:
Physical Exam
-
HEENT: Normocephalic and Other (Left cervical incision intact, no stridor on exam, no hematoma)
Cardiovascular: S1/S2
Respiratory: Clear and Non-Labored Respirations
GI: Soft and Non Distended
Neurology: Awake, Alert, Oriented and No Motor Deficits
Skin: Warm
General: Comfortable
Assessment
-
79-year-old man with multiple comorbidities including history of left severe carotic stenosis with a stroke, dialysis, coronary artery disease, admitted after syncopal episode. Patient was already scheduled for revascularization of carotid on
08/11/2024. Surgery underwent without complications. Transferred to the critical care unit for postoperative monitoring
s/p Left TCAR 08/11/2024 -Dr. Nickerson
Conditions present prior admission:
History of left occipital stroke
Severe left carotic stenosis
Coronary artery disease status post coronary artery bypass
Paroxysmal atrial fibrillation
Heart failure-recovered ejection fraction
End-stage renal disease on peritoneal dialysis
Hypertension
Hypothyroidism
Anemia of chronic kidney disease
Assessment and plan:
Postoperative day 0
Postoperative surgical intensive care unit monitoring
Supplemental oxygen as needed
Incentive spirometry
Aspiration precautions
Cervical incision is intact without hematoma
Continue analgesia
Neuro and vascular checks per protocol
Vascular surgery following-correspondence and operative notes reviewed
Monitor blood pressure
Allow for mild permissive hypertension
Arterial line in place
Cardene drip if needed
Chronic kidney disease: On hemodialysis
Nephrology following
Continue dialysis as scheduled
Restart outpatient medications
Follow blood sugars
Insulin supplementation as needed
Advance diet as tolerated
Aspiration precaution
DVT prophylaxis
--- NOTE | 2024-08-11 15:58 | W.PN.HOSP.TC ---
Today's Communication/Plan
-
Seen post TCAR.
Recovered from anesthesia.
Continue ICU monitoring
Hold anticoagulation.
PD.
Monitor hemodynamics with reintroduction of antihypertensive regimen over the next 24 hours.
Assessment / Plan
Assessment / Plan
Impression:
Presentation with syncope.
Conditions prior to admission:
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
Left carotid artery stenosis.
History of bilateral CEA at [place]
CAD with history of CABG
PAD
ESRD on PD.
Hypertension
Paroxysmal atrial fibrillation
Anticoagulation with Eliquis.
Dyslipidemia
anemia of CKD.
Hypothyroidism on replacement
Former smoker
Plan:
Syncope with prodrome.
Less likely cardiogenic.
Suspect orthostatic hypotension and carotid artery stenosis playing a role.
Monitor for orthostasis.
Hold preadmission antihypertensive regimen including amlodipine, lisinopril
Carotid artery stenosis.
Recent CTA: Severe mixed soft and calcific plaque at the left carotid bifurcation resulting in focal near complete occlusion of the proximal left internal carotid artery.
Patient is scheduled for elective revascularization on August 11
Vascular surgery consult
Status post TCAR on 08/11
End-stage renal disease.
Nephrology consult
Continue PD'
Anemia of CKD.
Hemoglobin stable.
Paroxysmal atrial fibrillation
EKG normal sinus rhythm.
Continue amiodarone
Recent occipital CVA pain
No focal findings or new neurologic complaints upon presentation
CT scan of the head with no acute abnormalities. Stable right frontal lobe infarct
Continue Plavix
CAD with history of CABG.
Continue Plavix, statin
Start PPI for GI prophylaxis (ongoing antiplatelet therapy and systemic anticoagulation)
DNR.
DVT prophylaxis heparin/Eliquis
Anticipated Discharge: 24 - 48 hours
Subjective/Interval History
-
Date of Service: August 11, 2024
Objective Data
-
Labs:
Laboratory Results
08/11/24 08/11/24 08/11/24
05:50 07:41 13:35
WBC 9.9 9.6
Hgb 8.9 L 8.6 L
Hct 26.2 L 25.0 L
Plt Count 330 269
PT 14.8 H 14.2
INR 1.11 1.05
APTT 76.0 H 42.1 H
Sodium 136 136
Potassium 4.1 3.8
Chloride 97 L 97 L
Carbon Dioxide 26 26
BUN 55 H 47 H
Creatinine 9.7 H* 9.7 H*
Glucose 128 H 114 H
Calcium 8.5 8.1 L
Vital Signs:
Vital Signs
Temp Pulse Resp BP Pulse Ox
97.4 F 78 8 138/67 100
08/11/24 15:01 08/11/24 14:45 08/11/24 14:45 08/11/24 14:45 08/11/24 14:45
I&O
08/10/24 08/11/24 08/12/24
06:59 06:59 06:59
Intake Total 568 / 568 300 / 300
Output Total 250 / 250 100 / 100
Balance -250 / -250 468 / 468 300 / 300
Physical Exam
-
General: Well Developed and No Apparent Distress
HEENT: Normocephalic, Atraumatic and Moist Mucous Membranes
Respiratory: Clear to Auscultation
Cardiac: Regular Rhythm and S1/S2; Negative Murmur, Rub or Gallop
GI: Soft, Nontender, Nondistended and Normal Bowel Sounds; Negative Organomegaly
Rectal: Deferred by Provider
Musculoskeletal: No Clubbing, No Cyanosis and No Edema
Skin: Negative Rash
Neuro: Awake, Alert, Oriented, AO x 3 and Nonfocal/Grossly Intact
--- NOTE | 2024-08-11 16:21 | PTCARENOTE ---
Updated assessment, vital sign trends ongoing and as documented. Follow up consult with vascular team, object oriented programmer team and follow up with hospitalist at bedside. Ongoing site checks, neurological follow up. Assessment trends ongoing. Continue with
teaching, emotional support and reinforce plan of cares. Follow up medicatioons with pharmacy and [facility]. Critical care nursing at bedside.
[2024-08-11] MEDS: TYLENOL 650 MG PO (16:31)
--- NOTE | 2024-08-11 17:16 | PTCARENOTE ---
Follow up assessment trends unchanged. Patient following up with several family members via phone. Update at bedside with vascular team. Continue with medications and follow up via [facility]. Continue with PD management, exchange completed follow up with
oncoming team. Continue hourly rounds and safety checks. Patient presently eating dinner with out complaints of pain or discomfort. Ice to surgical site.
--- NOTE | 2024-08-11 20:00 | PTCARENOTE ---
Resumed care of pt this evening. Bedside neurological checks performed at bedside w/ dayshift RN. Neurological checks are unchanged. PD performed by this RN. Pt tolerated exchange w/o issue.
[2024-08-12] VITALS: BP 141/56
[2024-08-12] MEDS: OSCAL CAL 500 500 MG PO ×4 (00:18→21:37)
[2024-08-12] MEDS: TYLENOL 650 MG PO (00:28)
--- NOTE | 2024-08-12 00:40 | PTCARENOTE ---
Upon reassessment pt's neurological checks remain unchanged. Pt resting comfortably.
[2024-08-12 04:00] VITALS: BP 130/53
[2024-08-12 04:34] LABS: Hematocrit 23.9 % (39.0-52.0); Hemoglobin 8.3 g/dL (13.0-18.0); Mean Corp Hgb Conc. 34.7 g/dL (33.0-37.0); Mean Platelet Volume 9.6 fL (7.4-10.4); Platelet Count 297 10^3/uL (130-400); Red Blood Cell Count 2.44 10^6/uL (4.70-6.10); Red Cell Dist. Width 15.6 % (11.5-14.5); White Blood Cell Count 10.8 10^3/uL (4.8-10.8)
[2024-08-12 04:38] LABS: INR 1.01; PT 13.8 Sec (11.4-14.6)
[2024-08-12 04:47] LABS: Blood Urea Nitrogen 44 mg/dl (9-20); Calcium 8.2 mg/dl (8.4-10.2); Carbon Dioxide 25 mmol/L (22-30); Chloride 96 mmol/L (98-107); Estimated Creatinine Clearance 6 ml/min; Glucose 134 mg/dl (70-99); Potassium 4.1 mmol/L (3.5-5.1); Sodium 137 mmol/L (135-145); eGFR 5.59
[2024-08-12] MEDS: SYNTHROID 150 MCG PO (05:03)
[2024-08-12 06:00] VITALS: BMI 24.2
--- NOTE | 2024-08-12 06:00 | PTCARENOTE ---
Pt continues to tolerate PD exchanges. Surgical sites both appear C/D/I. Neurological checks are unchanged.
[2024-08-12] MEDS: COLACE 100 MG PO (07:23)
[2024-08-12] MEDS: PACERONE 200 MG PO (07:23)
[2024-08-12] MEDS: LIPITOR 40 MG PO (07:24)
[2024-08-12] MEDS: VITAMIN B-12 1000 MCG PO (07:24)
[2024-08-12] MEDS: PROTONIX 40 MG PO (07:24)
[2024-08-12] MEDS: MAGNESIUM OXIDE 500 MG PO (07:24)
[2024-08-12] MEDS: VITAMIN D3 (cholecalciferol) 25 MCG PO (07:24)
[2024-08-12] MEDS: PLAVIX 75 MG PO (07:33)
--- NOTE | 2024-08-12 07:42 | W.PN.VS ---
Addendum entered and electronically signed by Saulo Nickerson MD 08/12/24 09:09:
Seen and examined with FAMILY RESOURCE MANAGEMENT PROFESSOR's. Agree with findings as noted below. Patient without complaints. Left neck incision is clean dry and intact. Neurologically no focal deficits. Right groin flat. Puncture site flat no hematoma. Plan/as discussed and
noted below.
Original Note:
Today's Communication / Plan
-
Patient seen and examined at bedside with Dr. Saulo Nickerson, below plan reviewed with attending
Assessment/Plan
-
Assessment: 79 year old male POD#1 LEFT TCAR
Plan:
Discontinue arterial line
Discontinue IV fluids
Restart home Eliquis
Continue 75mg Po Plavix daily
OOB to chair with progression to ambulation as tolerated
Subjective Data
-
Date of Service: August 12, 2024
Patient seen and examined and bedside offers no complaints. Denies nausea, vomiting, fever, chills, unilateral weakness, aphasia, or dysphagia. Tolerating PO diet.
Objective Data
-
Vital Signs
Temp Pulse Resp BP Pulse Ox
97.8 F 77 9 130/53 98
08/12/24 03:38 08/12/24 07:23 08/12/24 06:15 08/12/24 07:23 08/12/24 06:15
Intake and Output
08/11/24 08/12/24 08/13/24
06:59 06:59 06:59
Intake Total 568 / 568 1750 / 1750
Output Total 100 / 100 500 / 500
Balance 468 / 468 1250 / 1250
Intake:
Oral fluids 240 / 240 600 / 600
IV fluids (Total) 328 / 328 950 / 950
Cardene 40mg/200ml 50 / 50
NSS 100 / 100
Nss 1,000 ml @ 80 mls/hr IV . 800 / 800
[id number] SHARMAINE Rx#:[id number]
Fluid excess 200 / 200
Output:
Urine, Voided 0 / 0 0 / 0
Fluid deficit 100 / 100 500 / 500
Lab Results
08/12/24 04:16
08/12/24 04:16
Calcium 8.2 mg/dl (8.4-10.2) L 08/12/24 04:16
Total Bilirubin 0.3 mg/dl (0.2-1.3) 08/09/24 17:32
AST 16 U/L (17-59) L 08/09/24 17:32
ALT 27 U/L (0-50) 08/09/24 17:32
Alkaline Phosphatase 72 U/L (38-126) 08/09/24 17:32
Total Protein 6.5 g/dl (6.3-8.2) 08/09/24 17:32
Albumin 4.0 g/dl (3.5-5.0) 08/09/24 17:32
Physical Exam
-
No apparent distress
Left lower neck/chest incision CDI, tongue midline, face symmetrical
No tachycardia
No dyspnea
Moves BL UE and LE to command and spontaneously, equal strength
[2024-08-12 08:00] VITALS: BP 120/63
--- NOTE | 2024-08-12 09:24 | W.PN.NEPH.PH ---
Today's Communication / Plan
-
PD ordered
Assessment/Plan
-
Impression:
Syncope
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
Left carotid stenosis
End-stage renal disease on peritoneal dialysis
Hypertension
Paroxysmal atrial fibrillation
Hyperphosphatemia
Anemia
History of CABG
h/o bilat CEA at [facility]
Plan:
PD orders provided
prescription exchange every 4 hours with 1.5/2.5
Amlodipine and lisinopril currently held in setting of hypotension
can restart lisinopril at dc
-
-
Date of Service: August 12, 2024
CC / HPI / ROS
-
Chief Complaint:
ESRD
History of Present Illness:
PD in progress
BP stable
s/p 08/11 TCAR
Review of Systems:
no CP/SOB
Labs
-
Labs:
WBC 10.8 10^3/uL (4.8-10.8) 08/12/24 04:16
RBC 2.44 10^6/uL (4.70-6.10) L 08/12/24 04:16
Hgb 8.3 g/dL (13.0-18.0) L 08/12/24 04:16
Hct 23.9 % (39.0-52.0) L 08/12/24 04:16
Plt Count 297 10^3/uL (130-400) 08/12/24 04:16
Sodium 137 mmol/L (135-145) 08/12/24 04:16
Potassium 4.1 mmol/L (3.5-5.1) 08/12/24 04:16
Chloride 96 mmol/L (98-107) L 08/12/24 04:16
Carbon Dioxide 25 mmol/L (22-30) 08/12/24 04:16
BUN 44 mg/dl (9-20) H 08/12/24 04:16
Creatinine 8.9 mg/dL (0.7-1.3) H* 08/12/24 04:16
eGFR 5.59 08/12/24 04:16
Glucose 134 mg/dl (70-99) H 08/12/24 04:16
Calcium 8.2 mg/dl (8.4-10.2) L 08/12/24 04:16
Albumin 4.0 g/dl (3.5-5.0) 08/09/24 17:32
Physical Exam
-
Vital Signs:
Vital Signs
Temp Pulse Resp BP Pulse Ox
97.3 F 77 9 130/53 94
08/12/24 07:53 08/12/24 07:23 08/12/24 06:15 08/12/24 07:23 08/12/24 08:05
Cardiovascular:: Regular rate and rhythm
Respiratory:: Bilateral: Coarse
Lung Excursion:: Normal
Abdomen:: Nontender and Soft
Bowel Sounds:: Normal
Extremity Edema:: None: Bilateral:
[2024-08-12] MEDS: ELIQUIS 5 MG PO ×2 (10:00→19:42)
--- NOTE | 2024-08-12 10:59 | PTCARENOTE ---
pt A line removed, dressing CDI. Tolerating diet upgrade, monitoring FR. PD completed per orders, pt tolerated, denies discomfort. CB in reach.
--- NOTE | 2024-08-12 12:00 | W.PN.INTV ---
Today's Communication / Plan
Recommendations
Continue postoperative care
Eventual peritoneal dialysis
Antiplatelets will continue
Restart Eliquis
Monitor for bleeding
Transfer out of the ICU
Sign off
Assessment
-
79-year-old man with multiple comorbidities including history of left severe carotic stenosis with a stroke, dialysis, coronary artery disease, admitted after syncopal episode. Patient was already scheduled for revascularization of carotid on
08/11/2024. Surgery underwent without complications. Transferred to the critical care unit for postoperative monitoring
s/p Left TCAR 08/11/2024 -Dr. Nickerson
Conditions present prior admission:
History of left occipital stroke
Severe left carotic stenosis
Coronary artery disease status post coronary artery bypass
Paroxysmal atrial fibrillation
Heart failure-recovered ejection fraction
End-stage renal disease on peritoneal dialysis
Hypertension
Hypothyroidism
Anemia of chronic kidney disease
Assessment and plan:
Postoperative day 1
Doing well
Hemodynamically and neurologically intact
Incision without hematoma
Right groin without hematoma.
Pain is controlled-continue with analgesia as needed
Cervical incision is intact without hematoma
Neuro and vascular checks per protocol
Vascular surgery following-correspondence and operative notes reviewed
Antiplatelets
Restart anticoagulation
Restart outpatient medication blood pressure is controlled
Chronic kidney disease: On peritoneal dialysis
Nephrology following
Tolerating diet
Increase activity as tolerated
DVT prophylaxis
Likely transfer out of the ICU later today
Critical care team will sign off
Subjective Dataa
Subjective Data
Date of Service:
Date of Service: August 12, 2024
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
Subjective:
Patient report no significant pain.
Denies headache or blurry vision
Tolerating diet
No specific complaints this morning
Review of Systems
General: Fever (n)
Cardiopulmonary: Dyspnea (none )
GI: Abdominal Pain (n) and Nausea (n)
Neuro: Headache
Objective Data
Data Reviewed
Vital Signs / I&O / Oxygen:
Vital Signs
Temp Pulse Resp BP Pulse Ox
97.3 F 67 10 120/63 96
08/12/24 07:53 08/12/24 11:00 08/12/24 11:00 08/12/24 08:00 08/12/24 11:00
Intake and Output
08/11/24 08/12/24 08/13/24
06:59 06:59 06:59
Intake Total 568 / 568 1750 / 1950 320 / 320
Output Total 100 / 100 500 / 500 400 / 400
Balance 468 / 468 1250 / 1450 -80 / -80
SaO2 96
Nasal Cannula flow liters per 2
minute
Physical Exam
General: Comfortable
HEENT: Normocephalic
Cardiovascular: S1-S2
Respiratory: Clear and Non-Labored Respirations
GI: Soft and Non Distended
Neurology: Awake, Alert, Oriented and No Motor Deficits
Skin: Warm
Labs/Micro/Reports
Lab Data
08/12/24 04:16
08/12/24 04:16
Laboratory Results
08/11/24 08/12/24
13:35 04:16
PT 14.2 13.8
INR 1.05 1.01
APTT 42.1 H 37.0 H
[2024-08-12 13:14] VITALS: BP 111/60
--- NOTE | 2024-08-12 13:39 | W.PN.HOSP.TC ---
Today's Communication/Plan
-
PT assessment.
Resume anticoagulation with Eliquis
Resume Plavix.
Monitor BP for recurrent hypotension.
Resume lisinopril upon discharge holding amlodipine as recommended.
Assessment / Plan
Assessment / Plan
Impression:
Presentation with syncope.
Conditions prior to admission:
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
Left carotid artery stenosis.
History of bilateral CEA at [place]
CAD with history of CABG
PAD
ESRD on PD.
Hypertension
Paroxysmal atrial fibrillation
Anticoagulation with Eliquis.
Dyslipidemia
anemia of CKD.
Hypothyroidism on replacement
Former smoker
Plan:
Syncope with prodrome.
Less likely cardiogenic.
Suspect orthostatic hypotension and carotid artery stenosis playing a role.
Monitor for orthostasis.
Hold preadmission antihypertensive regimen including amlodipine, lisinopril
Carotid artery stenosis.
Recent CTA: Severe mixed soft and calcific plaque at the left carotid bifurcation resulting in focal near complete occlusion of the proximal left internal carotid artery.
Patient is scheduled for elective revascularization on August 11
Vascular surgery consult
Status post TCAR on 08/11
End-stage renal disease.
Nephrology consult
Continue PD'
Anemia of CKD.
Hemoglobin stable.
Paroxysmal atrial fibrillation
EKG normal sinus rhythm.
Continue amiodarone
Recent occipital CVA pain
No focal findings or new neurologic complaints upon presentation
CT scan of the head with no acute abnormalities. Stable right frontal lobe infarct
Continue Plavix
CAD with history of CABG.
Continue Plavix, statin
Start PPI for GI prophylaxis (ongoing antiplatelet therapy and systemic anticoagulation)
DNR.
DVT prophylaxis heparin/Eliquis
Anticipated Discharge: 24 - 48 hours
Subjective/Interval History
-
Date of Service: August 12, 2024
Objective Data
-
Labs:
Laboratory Results
08/12/24
04:16
WBC 10.8
Hgb 8.3 L
Hct 23.9 L
Plt Count 297
PT 13.8
INR 1.01
APTT 37.0 H
Sodium 137
Potassium 4.1
Chloride 96 L
Carbon Dioxide 25
BUN 44 H
Creatinine 8.9 H*
Glucose 134 H
Calcium 8.2 L
Vital Signs:
Vital Signs
Temp Pulse Resp BP Pulse Ox
97.3 F 82 22 111/60 97
08/12/24 07:53 08/12/24 13:30 08/12/24 13:30 08/12/24 13:14 08/12/24 13:14
I&O
08/11/24 08/12/24 08/13/24
06:59 06:59 06:59
Intake Total 568 / 568 1750 / 1950 320 / 320
Output Total 100 / 100 500 / 500 400 / 400
Balance 468 / 468 1250 / 1450 -80 / -80
Physical Exam
-
General: Well Developed and No Apparent Distress
HEENT: Normocephalic, Atraumatic and Moist Mucous Membranes
Respiratory: Clear to Auscultation
Cardiac: Regular Rhythm and S1/S2; Negative Murmur, Rub or Gallop
GI: Soft, Nontender, Nondistended and Normal Bowel Sounds; Negative Organomegaly
Rectal: Deferred by Provider
Musculoskeletal: No Clubbing, No Cyanosis and No Edema
Skin: Negative Rash
Neuro: Awake, Alert, Oriented, AO x 3 and Nonfocal/Grossly Intact
--- NOTE | 2024-08-12 15:24 | CM ---
CM following re: discharge planning.
Reviewed pt's chart, met with pt.
Pt is POD#1 s/p LEFT TCAR, continue supportive care.
Pt stated he lives in a trailer on son's property, has PD daily and has 3 caregivers. Pt stated he had [facility] at home [employer] and pt stated [facility] team already contacted his son and they will resume PT/OT services next week.
D/C plan: home with [facility] and family support.
CM will follow with discharge plan updates as hospitalization progresses
--- NOTE | 2024-08-12 16:51 | PTCARENOTE ---
Pt tolerated OOB, SBA to ambulate to bathroom. Tolerated lunch. PD per orders, pt tolerated well. CB in reach. No change in assessment. transfer orders obtained.
[2024-08-12 17:11] VITALS: BP 116/77
--- NOTE | 2024-08-12 17:56 | PTCARENOTE ---
pt's home care nurse Georgina who will be assisting with d/c coordination phone number: [phone]
[2024-08-12 20:00] VITALS: BP 136/55
--- NOTE | 2024-08-12 20:00 | PTCARENOTE ---
Resumed care of pt sitting up in bed chatting with visitors at bedside. AAOx3. HR in the 60's in NSR with first degree heart block. POXX 95% on RA, lungs dec @ bases. Hypo bowel, round dist abd. PD catheter in place. Pt Anuric. No BM. Palpable
peripheral pulses present. Left neck incisional site with surg glue open to air, ecchymosis present. Left wrist int, right ac int capped at this time. Pt denies any complaints. PD Q4 as ordered. Call molina in reach. Will continue to monitor.
[2024-08-13] VITALS: BP 115/48
[2024-08-13 04:36] VITALS: BMI 24.3
--- NOTE | 2024-08-13 05:08 | PTCARENOTE ---
Patient arrived into room 3355. Report received from PAUL Parra. Oriented to room an use of call molina. Tele showing NSR w/ 1st degree AVB. Denies any pain. 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 Left neck site approximated, BACK FILLER OPERATOR with glue; ecchymosis
around site, no drainage. SCDs on. Neuro check unchanged.
[2024-08-13 05:13] LABS: Hemoglobin 8.4 g/dL (13.0-18.0); Mean Corp Hgb Conc. 33.6 g/dL (33.0-37.0); Mean Corpuscular Volume 101.2 fL (80.0-94.0); Mean Platelet Volume 9.9 fL (7.4-10.4); Platelet Count 304 10^3/uL (130-400); Red Blood Cell Count 2.47 10^6/uL (4.70-6.10); Red Cell Dist. Width 15.6 % (11.5-14.5); White Blood Cell Count 9.7 10^3/uL (4.8-10.8)
[2024-08-13] MEDS: SYNTHROID 150 MCG PO (05:25)
[2024-08-13 05:37] LABS: Blood Urea Nitrogen 48 mg/dl (9-20); Calcium 8.3 mg/dl (8.4-10.2); Carbon Dioxide 28 mmol/L (22-30); Chloride 97 mmol/L (98-107); Estimated Creatinine Clearance 7 ml/min; Glucose 99 mg/dl (70-99); Potassium 4.2 mmol/L (3.5-5.1); Sodium 137 mmol/L (135-145); eGFR 6.26
[2024-08-13 06:05] VITALS: BP 135/53
[2024-08-13 08:01] VITALS: BP 104/57
[2024-08-13] MEDS: PLAVIX 75 MG PO (08:37)
[2024-08-13] MEDS: PROTONIX 40 MG PO (08:37)
[2024-08-13] MEDS: VITAMIN B-12 1000 MCG PO (08:37)
[2024-08-13] MEDS: MAGNESIUM OXIDE 500 MG PO (08:38)
[2024-08-13] MEDS: VITAMIN D3 (cholecalciferol) 25 MCG PO (08:38)
[2024-08-13] MEDS: OSCAL CAL 500 500 MG PO (08:38)
[2024-08-13] MEDS: PACERONE 200 MG PO (08:38)
[2024-08-13] MEDS: ELIQUIS 5 MG PO (08:38)
[2024-08-13] MEDS: LIPITOR 40 MG PO (08:38)
[2024-08-13] MEDS: COLACE 100 MG PO (08:38)
--- NOTE | 2024-08-13 09:01 | W.PN.NEPH.PH ---
Today's Communication / Plan
-
PD orders written
Possible discharge today
Patient will leave hospital with fill
Assessment/Plan
-
Impression:
Syncope
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
Left carotid stenosis
End-stage renal disease on peritoneal dialysis
Hypertension
Paroxysmal atrial fibrillation
Hyperphosphatemia
Anemia
History of CABG
h/o bilat CEA at [place]
Plan:
PD orders provided
U/F slightly negative with each exchange, weights stable
prescription exchange every 4 hours with 1.5/2.5
Amlodipine and lisinopril currently held in setting of hypotension
can restart lisinopril at dc
-
-
Date of Service: August 13, 2024
CC / HPI / ROS
-
Chief Complaint:
ESRD
History of Present Illness:
PD in progress
BP stable
s/p 08/11 TCAR
Review of Systems:
no CP/SOB
Labs
-
Labs:
WBC 9.7 10^3/uL (4.8-10.8) 08/13/24 04:51
RBC 2.47 10^6/uL (4.70-6.10) L 08/13/24 04:51
Hgb 8.4 g/dL (13.0-18.0) L 08/13/24 04:51
Hct 25.0 % (39.0-52.0) L 08/13/24 04:51
Plt Count 304 10^3/uL (130-400) 08/13/24 04:51
Sodium 137 mmol/L (135-145) 08/13/24 04:51
Potassium 4.2 mmol/L (3.5-5.1) 08/13/24 04:51
Chloride 97 mmol/L (98-107) L 08/13/24 04:51
Carbon Dioxide 28 mmol/L (22-30) 08/13/24 04:51
BUN 48 mg/dl (9-20) H 08/13/24 04:51
Creatinine 8.1 mg/dL (0.7-1.3) H* 08/13/24 04:51
eGFR 6.26 08/13/24 04:51
Glucose 99 mg/dl (70-99) 08/13/24 04:51
Calcium 8.3 mg/dl (8.4-10.2) L 08/13/24 04:51
Albumin 4.0 g/dl (3.5-5.0) 08/09/24 17:32
Physical Exam
-
Vital Signs:
Vital Signs
Temp Pulse Resp BP Pulse Ox
97.9 F 101 14 104/57 98
08/13/24 07:05 08/13/24 08:01 08/13/24 08:01 08/13/24 08:01 08/13/24 06:15
Cardiovascular:: Regular rate and rhythm
Respiratory:: Bilateral: Coarse
Lung Excursion:: Normal
Abdomen:: Nontender and Soft
Bowel Sounds:: Normal
Extremity Edema:: None: Bilateral:
[2024-08-13 10:00] VITALS: BP 107/56
[2024-08-13 12:00] VITALS: BP 110/54
--- NOTE | 2024-08-13 13:27 | W.DS.TRANS ---
DC Summary - Shipper
-
Discharge Instructions:
Discharge Diagnosis/Procedures Impression:
Presentation with syncope.
Conditions prior to admission:
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
Left carotid artery stenosis.
History of bilateral CEA at [place]
CAD with history of CABG
PAD
ESRD on PD.
Hypertension
Paroxysmal atrial fibrillation
Anticoagulation with Eliquis.
Dyslipidemia
anemia of CKD.
Hypothyroidism on replacement
Former smoker
Diet As tolerated
Activity No strenuous activity
Driving Restrictions Not until seen by your Dr
Bathing Restrictions OK to Shower
Instructions:
Stand-Alone Forms: DC Instr - Vascular OR
Changes to Home Medications: Yes
Discharge Medications:
DC Medications w/original date entered in [facility]
amiodarone 200 mg tablet 200 mg PO DAILY Arrhythmia 07/28/24
atorvastatin 40 mg tablet 40 mg PO DAILY High Cholesterol 07/28/24
calcium carbonate 500 mg PO TID Gastrointestinal Issue 07/28/24
cholecalciferol (vitamin D3) 25 mcg (1,000 unit) tablet (Vitamin D3) 25 mcg PO DAILY Supplement 07/28/24
cyanocobalamin (vitamin B-12) 1,000 mcg tablet 1,000 mcg PO DAILY Supplement 07/28/24
docusate sodium 100 mg capsule (Colace) 100 mg PO DAILY Constipation 07/28/24
levothyroxine 150 mcg tablet 150 mcg PO DAILY Thyroid 07/28/24
lisinopril 20 mg tablet 40 mg PO DAILY Blood Pressure 07/28/24
magnesium oxide 400 mg (241.3 mg magnesium) tablet 400 mg PO DAILY Supplement 07/28/24
vitamin B complex-vitamin C-folic acid 800 mcg chewable tablet (Dialyvite 800) 1 tab PO DAILY Supplement 07/28/24
clopidogrel 75 mg tablet 75 mg PO DAILY 30 days #30 tabs 08/04/24
apixaban 5 mg tablet (Eliquis) 5 mg PO BID Blood Clot Prevention/Tx 08/11/24
pantoprazole 40 mg tablet,delayed release 40 mg PO DAILY #30 tabs 08/13/24
Home Medication Changes
Amlodipine stopped
Pending Results: No
[2024-08-13 14:00] VITALS: BP 138/54
--- NOTE | 2024-08-13 14:05 | PTCARENOTE ---
Addendum entered by Eliana Anderson RN 08/13/24 14:57:
Per Zayra, dependency case manager, patient's caregiver Luzma will transport patient home. Patient stated she will come up to room to pick him up. Currently filling with PD. Discharge instructions and med list provided; no questions.
Original Note:
Assumed care of patient at beginning of this shift from previous RN. PD completed this morning; next treatment for 14:30. Patient requested to go home filled so he can continue his PD pattern at home; stated his machine is set up to empty first.
Reviewed with Dr Brown who stated patient may go home filled. Patient stated that his dialysis nurse will pick him up per his son.
--- NOTE | 2024-08-13 14:14 | CM ---
Patient with Hx ESRD on PD with Dx Syncope with prodrome, Carotid artery stenosis, s/p left TCAR.
Met with patient and spoke with son Hossein by phone; both agree with d/c home today with resumption [facility]. IMM completed. Son says patient's caregiver Luzma will come in to take patient home.
Spoke with Mika Solis; informed her that patient did not receive PT here, and d/c is today. Per Irma; they do not need referral/clinical info. [facility] will resume service for PT.
Plan home today with resumption [facility], with caregiver.
== END 2024-08-13 16:02 | disposition home or self-care (01) | DRG 34 ==
LOC: IMU 08:36
PROVIDERS: Nurse Practitioner Acute Care; Physician Assistant Medical; Registered Nurse; Specialist; Surgery Vascular Surgery; ADMITTING PHYSICIAN Hospitalist; ATTENDING PHYSICIAN Internal Medicine; CONSULT PHYSICIAN Specialist; EMERGENCY PHYSICIAN Emergency Medicine; FAMILY PHYSICIAN Nurse Practitioner Family; OTHER PHYSICIAN Internal Medicine Critical Care Medicine
PROC: 4A10X4G Monitoring of Central Nervous Electrical Activity, Intraoperative, External Approach (ICD-10-PCS; 2024-08-11)
PROC: 03JY0ZZ Inspection of Upper Artery, Open Approach (ICD-10-PCS; 2024-08-11)
PROC: 037L3DZ Dilation of Left Internal Carotid Artery with Intraluminal Device, Percutaneous Approach (ICD-10-PCS; 2024-08-11)
DX: I65.22 Occlusion and stenosis of left carotid artery (principal); N18.6 End stage renal disease; I13.2 Hypertensive heart and chronic kidney disease with heart failure and with stage 5 chronic kidney disease, or end stage renal disease; I50.32 Chronic diastolic (congestive) heart failure; I25.10 Atherosclerotic heart disease of native coronary artery without angina pectoris; I48.0 Paroxysmal atrial fibrillation; I95.1 Orthostatic hypotension; D63.1 Anemia in chronic kidney disease; E03.9 Hypothyroidism, unspecified; E78.00 Pure hypercholesterolemia, unspecified; E83.39 Other disorders of phosphorus metabolism; I73.9 Peripheral vascular disease, unspecified; Z95.1 Presence of aortocoronary bypass graft; Z87.891 Personal history of nicotine dependence; Z99.2 Dependence on renal dialysis; Z86.73 Personal history of transient ischemic attack (TIA), and cerebral infarction without residual deficits; Z79.899 Other long term (current) drug therapy; Z79.890 Hormone replacement therapy; Z79.02 Long term (current) use of antithrombotics/antiplatelets; Z79.01 Long term (current) use of anticoagulants
CPT/HCPCS: 37215; 70450; 71045; 80048; 80053; 84443; 85025; 85027; 85610; 85730; 93005; 99285; C1725; C1769; C1876; C1884; C1894; Q9967

== ENCOUNTER 2024-08-20 16:15 | Inpatient (IN) | payer MEDICARE, BC, SELFPAY ==
[2024-08-20] VITALS (15 sets, daily range): BP systolic 90–138; BP diastolic 39–99; BMI 24.3; BMI 23.1
[2024-08-20 14:16] LABS: % Eosinophils 3.2 % (0-6); % Immature Granulocytes 1.8 % (0-0.5); Absolute Basophils 0.1 10^3/uL (0-0.2); Absolute Eosinophils 0.4 10^3/uL (0-0.7); Absolute Immature Granulocytes 0.2 10^3/uL (0-0.05); Absolute Lymphocytes 2.5 10^3/uL (1.2-3.4); Absolute Monocytes 0.9 10^3/uL (0.1-0.6); Absolute Neutrophils 6.8 10^3/uL (1.4-6.5); Hematocrit 24.2 % (39.0-52.0); Hemoglobin 8.2 g/dL (13.0-18.0); Mean Corp Hgb Conc. 33.9 g/dL (33.0-37.0); Mean Corpuscular Hgb 34.2 pg (27.0-31.0); Mean Corpuscular Volume 100.8 fL (80.0-94.0); Mean Platelet Volume 10.1 fL (7.4-10.4); Nucleated Red Blood Cells % 0 % (-); Platelet Count 336 10^3/uL (130-400); Red Cell Dist. Width 15.2 % (11.5-14.5); White Blood Cell Count 10.8 10^3/uL (4.8-10.8)
[2024-08-20 14:29] LABS: APTT 36.8 Sec (23.4-35.0)
[2024-08-20 14:51] LABS: ALT (SGPT) 12 U/L (0-50); AST (SGOT) 17 U/L (17-59); Albumin 3.5 g/dl (3.5-5.0); Alkaline Phosphatase 87 U/L (38-126); Blood Urea Nitrogen 49 mg/dl (9-20); Calcium 9.1 mg/dl (8.4-10.2); Carbon Dioxide 30 mmol/L (22-30); Chloride 92 mmol/L (98-107); Estimated Creatinine Clearance 6 ml/min; Glucose 102 mg/dl (70-99); Potassium 4.1 mmol/L (3.5-5.1); Sodium 136 mmol/L (135-145); Total Bilirubin 0.2 mg/dl (0.2-1.3); Total Protein 5.8 g/dl (6.3-8.2); eGFR 5.44
--- NOTE | 2024-08-20 15:12 | ED.GENMED ---
History of Present Illness
General
Chief Complaint: Blood Pressure Problem
Source: patient and healthcare advisory services manager
Time Seen by Provider: 08/20/24 14:16
History of Present Illness
History of Present Illness:
79yoM with a history of ESRD on peritoneal dialysis, CVA, coronary artery disease, atrial fibrillation, hypertension, hyperlipidemia, and hypothyroidism presenting via EMS for evaluation of low blood pressure. Patient is accompanied by his home
nurse. He was recently hospitalized and underwent L carotid artery revascularization with stent placement on 08/11/24. His medications were changed during this hospitalization and he was started on Plavix. His lisinopril and Eliquis doses were also
increased. His home nurse feels that he is on too much medication. She states his blood pressure has 'been all over the place.' He has been having low blood pressure readings and he was seen by his PCP yesterday. His amlodipine was discontinued
and his lisinopril was decreased from 40 mg daily to 20 mg daily. Patient has not had any antihypertensives in the past 24 hours. His blood pressure this morning was 68/56. Nurse states that he appeared pale this afternoon and was complaining of
fatigue and weakness. Patient had a near syncopal episode and the nurse rechecked his blood pressure which was 76/57 at which point EMS was activated. Patient states his legs feel like 'rubber.' He is otherwise asymptomatic and denies any fevers,
chills, chest pain, shortness of breath, abdominal pain, vomiting. He reports normal p.o. intake.
Past History
Past History
ED Past Medical History: CVA (Chronic right frontal, acute left occipital and frontal), HTN, Hypercholesterolemia and Other (Renal failure/peritoneal dialysis, left internal carotid artery stenosis)
ED Past Surgical History: Other (Dialysis catheter)
Social History
Tobacco: Non-smoker
Alcohol: None
Family History
Family History: Other (Reviewed and noncontributory)
Phy Exam
General Physical Exam
General Presentation: no apparent distress
General Skin: warm and dry
General Habitus: normal and elderly
General Mental: alert
ENT Exam
ENT Exam: normocephalic
Cardiovascular Exam
Cardiovascular Exam: regular rate/rhythm
Pulmonary Exam
Pulmonary Exam: lungs clear, no respiratory distress, no rales, no crackles and no wheezing
Gastrointestinal Exam
Gastrointestinal Exam: non tender, soft and non distended
Neurological Exam
Neurological Exam: alert and no motor deficits
Chaya Coma Scale
Eye Opening: Spontaneous
Verbal Response: Oriented
Motor Response: Obeys Commands
GCS Total Score: 15
Skin Exam
Skin Exam: normal color and warm/dry
Psychiatric Exam
Psychiatric Exam: normal mood/affect
Course
Orders/Labs/Results
Orders:
Orders
08/20/24 13:40
EKG [Electrocardiogram (*1)] Urgent
Reason for Study: Fatigue / Weakness
EKG- Treatment ONCE
08/20/24 14:09
Complete Blood Count/With Diff Urgent
Comprehensive Metabolic Panel Urgent
PTT Urgent
08/20/24 Dinner
Regular
Fluid Restriction: 1800 mL/day (60 oz)
08/20/24 15:12
0.9% Sodium Chloride 250 ml [Nss] 250 ml IV BOLUS
08/20/24 15:26
Admit/Transfer Patient As Directed
Co-Sign Provider:
Level of Care: Inpatient admission
Assign to:: IMU- Intermediate Care
Physician / Group: Hospitalist
Diagnosis: Hypotension
Reason for Hospitalization: .
Expected length of stay greater than two midnights?: Yes
ELOS- Estimated Length of Stay in days: 3
I certify the patient meets the requirements for IP care: Yes
PRN Pain Medication Management As Directed
May give lesser potent ordered pain med per pt: Yes
preference::
Protocol:: Medication orders for pain may be administered in a
manner that supports deferring to patient preference
when the pt is:
- Requesting an ordered lesser potent pain medication.
Least to most potent pain medications are defined
as: acetaminophen < NSAID < tramadol < opioids
(morphine, oxycodone, hydromorphone).
- Requesting a lesser dose of the same medication IF
ORDERED.
- Requesting a less intrusive route of administration
if both routes are prescribed by the provider (PO <
IV).
08/20/24 15:29
Code Status As Directed
Resuscitation Status: Do not resuscitate
Reached after discussion with pt or family/Healthcare POA: Yes
08/20/24 15:30
DNR Bracelet Application ONCE
08/20/24 16:31
Acetaminophen [Tylenol] 1,000 mg PO Q6HPRN PRN
Midodrine [ProAmatine] 5 mg PO Q4HPRN PRN
08/20/24 16:31
Consult Nephrology [NEPHROLOGY CONSULT] Routine
Consulting Provider: Nicolas Brown V.
Was physician already notified: Yes
Reason for consult: Renal failure
08/20/24 17:00
Calcium Carbonate [Oscal Livan 500] 500 mg PO TID
08/20/24 20:00
Apixaban [Eliquis] 2.5 mg PO BID
08/21/24 06:00
Levothyroxine [Synthroid] 150 mcg PO DAILY @ 0600
Ot Eval And Treat IN AM
Pt Eval And Treat IN AM
Activity Level: Ambulate
08/21/24 08:00
Amiodarone [Pacerone] 200 mg PO DAILY
Atorvastatin [Lipitor] 40 mg PO DAILY
Clopidogrel Bisulfate [Plavix] 75 mg PO DAILY
Magnesium l-Lactate [Mag-Tab Sr] 84 mg PO DAILY
Pantoprazole [Protonix] 40 mg PO DAILY
08/22/24 11:00
DC Protocol for Telemetry ONCE
Abnormal Lab Results
08/20/24
14:09
RBC 2.40 L 10^6/uL
(4.70-6.10)
Hgb 8.2 L g/dL
(13.0-18.0)
Hct 24.2 L %
(39.0-52.0)
MCV 100.8 H fL
(80.0-94.0)
MCH 34.2 H pg
(27.0-31.0)
RDW 15.2 H %
(11.5-14.5)
Abs Immat Gran (auto) 0.2 H 10^3/uL
(0-0.05)
Absolute Neuts (auto) 6.8 H 10^3/uL
(1.4-6.5)
Absolute Monos (auto) 0.9 H 10^3/uL
(0.1-0.6)
Immature Gran % 1.8 H %
(0-0.5)
APTT 36.8 H Sec
(23.4-35.0)
Chloride 92 L mmol/L
(98-107)
BUN 49 H mg/dl
(9-20)
Creatinine 9.1 H* mg/dL
(0.7-1.3)
Glucose 102 H mg/dl
(70-99)
Total Protein 5.8 L g/dl
(6.3-8.2)
08/20/24 14:09
08/20/24 14:09
Vital Signs
Initial and Last Documented VS:
Initial Vital Signs
Resp
12
08/20/24 13:41
Last Documented Vital Signs
Temp Pulse Resp BP Pulse Ox
98.6 F 78 18 125/52 98
08/20/24 15:34 08/20/24 18:00 08/20/24 15:34 08/20/24 18:00 08/20/24 17:45
MDM/Problems Addressed
Differential Diagnosis Includes:
79yoM here with low blood pressures at home. Hx of ESRD on PD. Patient had a near syncopal episode earlier today. SBPs in the 60-80s at home today. Lisinopril dose decreased yesterday and amlodipine was discontinued by his PCP. BP 97/45 on
arrival. Remainder of vitals stable. Exam unremarkable. Differential diagnosis includes but is not limited to: Medication side effect, orthostatic hypotension, dehydration, anemia, no clinical signs of infection
Labs obtained in triage. Hemoglobin at baseline. Remainder of labs overall unremarkable. Blood pressure dropped to 90/39 in ED. 250cc IV fluid bolus ordered. Will admit for further evaluation and management.
*EKG
Interpreted by ED Provider?: Yes
EKG Intrepretation Date: 08/20/24
Heart Rate: 79
Rate: normal
Rhythm: sinus
[place]: left axis deviation
Interval: first degree heart block and long QT (502)
Ischemia: T-wave inversion
*Critical Care Note
Total Time (30-74mins, 75-104mins- exclusive of procedures): Not Applicable
ED Attending Note
-
Portions of this chart may have been created with voice recognition software.� Occasional wrong word or��sound alike� substitutions may have occurred due to the inherent limitations of voice recognition software.
Discharge Plan
Departure
Patient Disposition: Admit
Date of Disposition: 08/20/24
Time of Disposition: 15:23
Presentation/result/management discussed w/ accepting MD/DO: Hospitalist
Discharge Problem:
Hypotension, Near syncope
Interventions
Interventions:
*Risk Screen - Suicide Last Done: 08/20/24 13:53
*General Assessment Last Done: 08/20/24 13:53
*Neglect/Abuse Screening Last Done: 08/20/24 13:53
*ED COVID-19 Vaccine History Last Done: 08/20/24 13:53
ED- Cardiac Assessment Last Done: 08/20/24 13:57
ED- Neurological Assessment Last Done: 08/20/24 13:58
ED- Pulmonary Assessment Last Done: 08/20/24 13:58
--- NOTE | 2024-08-20 15:24 | HPS.HSE ---
Family Physician
-
Family Physician: LUZ MARIA Wolfe
Chief Complaint
-
Weakness and low blood pressure at home
History of Present Illness
79 years old male presented to the emergency room. Patient was sent to the ER by his home health nurse. Patient gets vital signs check at home. He undergoes home dialysis. He reported he had low blood pressure and was advised to go to the ""hospital. Patient was taking his blood pressure medication. Patient reported that he experienced weakness and dizziness mostly upon standing. Patient was discharged from on 08/13/24 after undergoing left carotid angioplasty. He was noted to
have orthostatic hypotension at the time. Patient denied abdominal pain, chest pain or fevers.
Medical History
Past Medical History
Past Medical History: Reports Other (left occipital stroke with severe left carotid stenosis, CAD, HTN, HLD, hypothyroidism, Anemia of CKD, A-Fib, ESRD on PD )
Past Surgical History: Reports Other (Recent left carotid angioplasty )
Social History
Tobacco: Non-smoker
Alcohol: Occasional
Drug: None
Personal: Single
Living: Alone
Employment: Retired
Family History
Family History: Not pertinent
Allergies / Home Medications
Allergies reflects when Allergies were last updated in [facility].
Home Medications with original date entered in [facility]
Allergy/Medication List:
Allergies
Allergy/AdvReac Type Severity Reaction Status Date / Time
No Known Allergies Allergy Verified 08/09/24 17:36
Home Medications
amiodarone 200 mg tablet 200 mg PO DAILY Arrhythmia 07/28/24
atorvastatin 40 mg tablet 40 mg PO DAILY High Cholesterol 07/28/24
calcium carbonate 500 mg PO TID Gastrointestinal Issue 07/28/24
cholecalciferol (vitamin D3) 25 mcg (1,000 unit) tablet (Vitamin D3) 25 mcg PO DAILY Supplement 07/28/24
cyanocobalamin (vitamin B-12) 1,000 mcg tablet 1,000 mcg PO DAILY Supplement 07/28/24
docusate sodium 100 mg capsule (Colace) 100 mg PO DAILY Constipation 07/28/24
levothyroxine 150 mcg tablet 150 mcg PO DAILY Thyroid 07/28/24
lisinopril 20 mg tablet 40 mg PO DAILY Blood Pressure 07/28/24
magnesium oxide 400 mg (241.3 mg magnesium) tablet 400 mg PO DAILY Supplement 07/28/24
vitamin B complex-vitamin C-folic acid 800 mcg chewable tablet (Dialyvite 800) 1 tab PO DAILY Supplement 07/28/24
clopidogrel 75 mg tablet 75 mg PO DAILY 30 days #30 tabs 08/04/24
apixaban 5 mg tablet (Eliquis) 2.5 mg PO BID Blood Clot Prevention/Tx 08/11/24
pantoprazole 40 mg tablet,delayed release 40 mg PO DAILY #30 tabs 08/13/24
acetaminophen 500 mg tablet (Tylenol Extra Strength) 1,000 mg PO Q6HPRN PRN mild pain 08/20/24
Review of Systems
-
History Source: Patient
A 12 point ROS was completed and negative except as noted: Yes
Constitutional: Reports Fatigue; Denies Fever or Chills
EENT: Denies Sore Throat
Respiratory: Denies Cough
Cardiac: Denies Chest Pain
Abdomen/GI: Denies Abdominal Pain
: Denies Bleeding
Musculoskeletal: Denies Joint Pain or Joint Swelling
Neurological: Reports Dizzy (upon standing ) and Weakness; Denies Headache
Endocrine: Denies Temp Intolerance
Hematologic/Lymphatic: Denies Bruising
Psych: Denies Panic Disorder
Physical Exam
Vital Signs
Vital Signs
Temp Pulse Resp BP Pulse Ox
99.0 F 77 16 90/39 97
08/20/24 13:43 08/20/24 14:00 08/20/24 14:00 08/20/24 14:00 08/20/24 14:00
Physical Exam
General: No Apparent Distress, Comfortable and Appears Chronically Ill
HEENT: Moist mucous membranes and Atraumatic
Respiratory: Clear
Cardiac: S1/S2 and Regular Rhythm
GI: Soft, Non Tender and Other (Drain )
Genito-urinary: No costovertebral tender
Musculoskeletal: No Cyanosis and No Edema
Skin: No Jaundice
Neuro: Awake and Oriented; No Slurred Speech or Tremors
Psych: Calm and Intact Judgment/Insight
Laboratory Results
-
08/20/24 14:09
08/20/24 14:09
Laboratory Results
APTT 36.8 Sec (23.4-35.0) H 08/20/24 14:09
Total Bilirubin 0.2 mg/dl (0.2-1.3) 08/20/24 14:09
AST 17 U/L (17-59) 08/20/24 14:09
ALT 12 U/L (0-50) 08/20/24 14:09
Alkaline Phosphatase 87 U/L (38-126) 08/20/24 14:09
Impression/Plan
-
79 male presented with weakness and orthostatic hypotension
# Orthostatic hypotension
Recent change to BP by PCP due to low blood pressure : stopped Amlodipine and reduced Lisinopril
Patient had a near syncopal episode and the nurse rechecked his blood pressure which was 76/57 at which point EMS was activated
Reviewing recent hospitalization, it was also noted to have low Bp.
Admit to telemetry
EKG SR
Hold BP medications for now
Avoid further IVF due to ESRD
Give midodrine PRN
No fever, no leukocytosis, no abdominal pain, no cough, doubt infectious source
#History of left occipital stroke/ Severe left carotic stenosis
Status post left carotid angioplasty by Dr Nickerson on 08/11
c/w Plavix
# History of Coronary artery disease status post coronary artery bypass
No chest pain
# Paroxysmal atrial fibrillation Hx of chronic Heart failure-recovered ejection fraction
c/w Eliquis, Amiodarone
# End-stage renal disease on peritoneal dialysis
No abdominal pain or tenderness
Drain looks clean
Consult nephrology
# Hx of essential hypertension
Hold oral BP medications for now
# Hypothyroidism
# Anemia of chronic kidney disease
HGB around 8
# Code status: DNR
Total time spent to see the patient, examine the patient, review data and lab results, discuss treatment plan with patient, ER doctor, nursing staff around 75 minutes
[2024-08-20] MEDS: NSS 250 IV (15:40)
--- NOTE | 2024-08-20 16:49 | W.CON.NEPH ---
Consultation
-
Date/Time Consultation Requested: 08/20/24 1500
Date/Time Consultation Performed: 08/20/24 1600
Requesting Provider: Dr Myers
Performing Provider: Dr Almaguer
Reason for Consultation: ESRD
Medical History
-
Chief Complaint: ESRD/PD
History of Present Illness:
79-year-old male with CAD status post CABG, paroxysmal atrial fibrillation(maintained on amiodarone and anticoagulated with Eliquis), HFrEF, ESRD on peritoneal dialysis, hypertension (maintained on amlodipine and lisinopril), hypercholesteremia,
hypothyroidism. Patient was recently in the hospital with syncope. He ultimately came back for carotid surgery /TCAR. This was performed without complication. He was discharged on a new medication list. At home his noted that his blood
pressures were low and had held some of his medications. Ultimately he was still extremely weak and because of this had come to the emergency room. He was noted to be hypotensive. They do note that he has had no issues with his dialysis at home.
He he remains on amiodarone therapy for atrial fibrillation which is controlled as well as multiple anticoagulation regimen for his recent carotid surgery.
Past Medical History
End-stage renal disease on peritoneal dialysis
Coronary artery disease with history of CABG
Paroxysmal atrial fibrillation on chronic anticoagulation
HFpEF
Hypothyroidism
Hyperphosphatemia
Anemia
Dyslipidemia
Left occipital stroke with severe left carotid artery stenosis
Social History
Tobacco: Non-Smoker
Alcohol: None
Drug: None
Family History
no ckd
Allergies / Home Medications
Allergy/AdvReac Type Severity Reaction Status Date / Time
No Known Allergies Allergy Verified 08/09/24 17:36
�Medication �Instructions �Recorded �Confirmed �Type
amiodarone 200 mg tablet 200 mg PO DAILY Arrhythmia 07/28/24 08/20/24 History
atorvastatin 40 mg tablet 40 mg PO DAILY High Cholesterol 07/28/24 08/20/24 History
calcium carbonate 500 mg PO TID Gastrointestinal 07/28/24 08/20/24 History
Issue
cholecalciferol (vitamin D3) 25 25 mcg PO DAILY Supplement 07/28/24 08/20/24 History
mcg (1,000 unit) tablet (Vitamin
D3)
cyanocobalamin (vitamin B-12) 1,000 mcg PO DAILY Supplement 07/28/24 08/20/24 History
1,000 mcg tablet
docusate sodium 100 mg capsule 100 mg PO DAILY Constipation 07/28/24 08/20/24 History
(Colace)
levothyroxine 150 mcg tablet 150 mcg PO DAILY Thyroid 07/28/24 08/20/24 History
lisinopril 20 mg tablet 40 mg PO DAILY Blood Pressure 07/28/24 08/20/24 History
magnesium oxide 400 mg (241.3 mg 400 mg PO DAILY Supplement 07/28/24 08/20/24 History
magnesium) tablet
vitamin B complex-vitamin C-folic 1 tab PO DAILY Supplement 07/28/24 08/20/24 History
acid 800 mcg chewable tablet
(Dialyvite 800)
clopidogrel 75 mg tablet 75 mg PO DAILY 30 days #30 tabs 08/04/24 08/20/24 Rx
apixaban 5 mg tablet (Eliquis) 2.5 mg PO BID Blood Clot 08/11/24 08/20/24 History
Prevention/Tx
pantoprazole 40 mg tablet,delayed 40 mg PO DAILY #30 tabs 08/13/24 08/20/24 Rx
release
acetaminophen 500 mg tablet 1,000 mg PO Q6HPRN PRN mild pain 08/20/24 08/20/24 History
(Tylenol Extra Strength)
Review of Systems
-
Weakness, improving.
All other systems: Negative unless noted
Physical Exam
Vital Signs
Vital Signs
Temp Pulse Resp BP Pulse Ox
98.6 F 72 18 138/51 100
08/20/24 15:34 08/20/24 16:45 08/20/24 15:34 08/20/24 16:30 08/20/24 16:45
Lab Results
WBC 10.8 10^3/uL (4.8-10.8) 08/20/24 14:09
RBC 2.40 10^6/uL (4.70-6.10) L 08/20/24 14:09
Hgb 8.2 g/dL (13.0-18.0) L 08/20/24 14:09
Hct 24.2 % (39.0-52.0) L 08/20/24 14:09
Plt Count 336 10^3/uL (130-400) 08/20/24 14:09
Sodium 136 mmol/L (135-145) 08/20/24 14:09
Potassium 4.1 mmol/L (3.5-5.1) 08/20/24 14:09
Chloride 92 mmol/L (98-107) L 08/20/24 14:09
Carbon Dioxide 30 mmol/L (22-30) 08/20/24 14:09
BUN 49 mg/dl (9-20) H 08/20/24 14:09
Creatinine 9.1 mg/dL (0.7-1.3) H* 08/20/24 14:09
eGFR 5.44 08/20/24 14:09
Glucose 102 mg/dl (70-99) H 08/20/24 14:09
Calcium 9.1 mg/dl (8.4-10.2) 08/20/24 14:09
Albumin 3.5 g/dl (3.5-5.0) 08/20/24 14:09
Laboratory Tests
08/13/24
04:51
Hgb 8.4 L
Potassium 4.2
Physical Exam
Patient is awake alert oriented and in no distress. Mood and affect were pleasant, insight and judgment were good. Pupils are equal round and reactive to light, extraocular movements are intact, sclera were anicteric. Hearing was normal, ears and
nose are intact. Oropharynx was clear. Neck was supple with trachea midline and no thyromegaly. Heart was regular rate and rhythm without rubs. Lower extremities without edema. Lungs were clear to auscultation bilaterally and with normal
excursion. Abdomen was soft, nontender, with normal active bowel sounds, and no hepatosplenomegaly. Skin was without rash and with normal turgor.
Data Reviewed
-
Radiology: Image Personally Visualized and interpreted (Chest x-ray on 08/12/2024 by my reading shows no acute disease)
Medical Tests (Nuc Med, Echo etc): Image Personally Visualized and interpreted (EKG on 08/20/2024 by my reading shows normal sinus rhythm first-degree AV block left axis deviation prolonged QT)
Labs: Labs Reviewed by me
Old Records: Reviewed
Assessment/Plan
-
Impression:
Syncope
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
Left carotid stenosis
End-stage renal disease on peritoneal dialysis
Hypertension
Paroxysmal atrial fibrillation
Hyperphosphatemia
Anemia
History of CABG
h/o bilat CEA at [place]
TCAR 08/11/2024
Plan:
PD orders provided
Will exchange every 4 hours with 2 L of 1.5% solution
Amlodipine and lisinopril will be discontinued.
May consider low-dose lisinopril in the future
[2024-08-20] MEDS: OSCAL CAL 500 500 MG PO ×2 (17:39→21:31)
[2024-08-20] MEDS: ELIQUIS 2.5 MG PO (21:31)
[2024-08-20] MEDS: TUMS CHEWABLE TABLET 200 MG PO (21:44)
--- NOTE | 2024-08-20 22:00 | PTCARENOTE ---
Admitted pt. aaox3, pleasant, denies pain. NSR. BP stable at this time. PD q4h. oliguric. Tums ordered for slight heartburn. OOB with assistance. NO issues at this time, call molina in reach. will monitor.
[2024-08-21] VITALS (26 sets, daily range): BP systolic 84–137; BP diastolic 39–88; PULSE 67–93; O2SAT 93–99
[2024-08-21] MEDS: SYNTHROID 150 MCG PO (05:53)
--- NOTE | 2024-08-21 07:04 | W.PN.HOSP.TC ---
Today's Communication/Plan
-
Orthostatic vital signs BID
Consult PT/OT
PD today
Assessment / Plan
Assessment / Plan
Physical Exam
General: No Apparent Distress, Comfortable and Appears Chronically Ill
HEENT: Moist mucous membranes and Atraumatic
Respiratory: Clear
Cardiac: S1/S2 and Regular Rhythm
GI: Soft, Non Tender and Other (Drain )
Genito-urinary: No costovertebral tender
Musculoskeletal: No Cyanosis and No Edema
Skin: No Jaundice
Neuro: Awake and Oriented; No Slurred Speech or Tremors
Psych: Calm and Intact Judgment/Insight
79 male presented with weakness and orthostatic hypotension
# Orthostatic hypotension/ Patient had a near syncopal episode and the nurse rechecked his blood pressure which was 76/57 at which point EMS was activated
Recent change to BP by PCP due to low blood pressure : stopped Amlodipine and reduced Lisinopril
Now we held his BP medications
Reviewing recent hospitalization, it was also noted to have low Bp.
WIll monitor and decide if he will need BP medication
Check ortho vitals BID.
Admit to telemetry
EKG SR
Hold BP medications for now
Avoid further IVF due to ESRD
Give midodrine PRN
No fever, no leukocytosis, no abdominal pain, no cough, doubt infectious source
#History of left occipital stroke/ Severe left carotic stenosis
Status post left carotid angioplasty by Dr Nickerson on 08/11
c/w Plavix
# History of Coronary artery disease status post coronary artery bypass
No chest pain
# Paroxysmal atrial fibrillation Hx of chronic Heart failure-recovered ejection fraction
c/w Eliquis, Amiodarone
# End-stage renal disease on peritoneal dialysis
No abdominal pain or tenderness
Drain looks clean
Appreciate nephrology help
# Hx of essential hypertension
Hold oral BP medications for now
# Hypothyroidism
# Anemia of chronic kidney disease
HGB around 8
# Code status: DNR
Total time spent to see the patient, examine the patient, review data and lab results, discuss treatment plan with patient, nursing staff around 55 minutes
Anticipated Discharge: Within 24 hours
Subjective/Interval History
-
Date of Service: August 21, 2024
No chest pain
No sob
Objective Data
-
Labs:
Laboratory Results
08/21/24
06:00
WBC Pending
Hgb Pending
Hct Pending
Plt Count Pending
Sodium Pending
Potassium Pending
Chloride Pending
Carbon Dioxide Pending
BUN Pending
Creatinine Pending
Glucose Pending
Calcium Pending
Vital Signs:
Vital Signs
Temp Pulse Resp BP Pulse Ox
98.4 F 75 14 106/66 98
08/21/24 03:09 08/21/24 02:00 08/21/24 02:00 08/21/24 02:00 08/21/24 02:20
I&O
08/20/24 08/21/24 08/22/24
06:59 06:59 06:59
Output Total 2400 / 2400
Balance -2400 / -2400
[2024-08-21 08:53] LABS: Hematocrit 27.2 % (39.0-52.0); Hemoglobin 9.3 g/dL (13.0-18.0); Mean Corp Hgb Conc. 34.2 g/dL (33.0-37.0); Mean Corpuscular Hgb 34.8 pg (27.0-31.0); Mean Corpuscular Volume 101.9 fL (80.0-94.0); Mean Platelet Volume 10.3 fL (7.4-10.4); Platelet Count 347 10^3/uL (130-400); Red Blood Cell Count 2.67 10^6/uL (4.70-6.10); Red Cell Dist. Width 15.2 % (11.5-14.5); White Blood Cell Count 12.1 10^3/uL (4.8-10.8)
[2024-08-21] MEDS: PROTONIX 40 MG PO (09:02)
[2024-08-21] MEDS: PACERONE 200 MG PO (09:02)
[2024-08-21] MEDS: PLAVIX 75 MG PO (09:02)
[2024-08-21] MEDS: MAG-TAB SR 84 MG PO (09:02)
[2024-08-21] MEDS: ELIQUIS 2.5 MG PO ×2 (09:03→19:27)
[2024-08-21] MEDS: LIPITOR 40 MG PO (09:03)
[2024-08-21] MEDS: OSCAL CAL 500 500 MG PO ×3 (09:03→21:28)
[2024-08-21 09:07] LABS: Blood Urea Nitrogen 49 mg/dl (9-20); Calcium 9.6 mg/dl (8.4-10.2); Carbon Dioxide 29 mmol/L (22-30); Chloride 91 mmol/L (98-107); Estimated Creatinine Clearance 6 ml/min; Glucose 121 mg/dl (70-99); Potassium 4.1 mmol/L (3.5-5.1); Sodium 136 mmol/L (135-145)
--- NOTE | 2024-08-21 11:02 | W.PN.NEPH.PH ---
Today's Communication / Plan
-
PD ordered
Assessment/Plan
-
Impression:
Syncope
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
Left carotid stenosis
End-stage renal disease on peritoneal dialysis
Hypertension
Paroxysmal atrial fibrillation
Hyperphosphatemia
Anemia
History of CABG
h/o bilat CEA at [place]
TCAR 08/11/2024
Plan:
PD orders provided
Will exchange every 4 hours with 2 L of 1.5% solution
off BP meds
follow BP trend, try to avoid midodrine
-
-
Date of Service: August 21, 2024
CC / HPI / ROS
-
Chief Complaint:
ESRD
History of Present Illness:
PD in progress
BP low this am again
WBC up to 12
Review of Systems:
no CP/SOB
Labs
-
Labs:
WBC 12.1 10^3/uL (4.8-10.8) H 08/21/24 08:05
RBC 2.67 10^6/uL (4.70-6.10) L 08/21/24 08:05
Hgb 9.3 g/dL (13.0-18.0) L 08/21/24 08:05
Hct 27.2 % (39.0-52.0) L 08/21/24 08:05
Plt Count 347 10^3/uL (130-400) 08/21/24 08:05
Sodium 136 mmol/L (135-145) 08/21/24 08:05
Potassium 4.1 mmol/L (3.5-5.1) 08/21/24 08:05
Chloride 91 mmol/L (98-107) L 08/21/24 08:05
Carbon Dioxide 29 mmol/L (22-30) 08/21/24 08:05
BUN 49 mg/dl (9-20) H 08/21/24 08:05
Creatinine 9.3 mg/dL (0.7-1.3) H* 08/21/24 08:05
eGFR 5.30 08/21/24 08:05
Glucose 121 mg/dl (70-99) H 08/21/24 08:05
Calcium 9.6 mg/dl (8.4-10.2) 08/21/24 08:05
Albumin 3.5 g/dl (3.5-5.0) 08/20/24 14:09
Physical Exam
-
Vital Signs:
Vital Signs
Temp Pulse Resp BP Pulse Ox
97.4 F 75 13 131/50 97
08/21/24 07:07 08/21/24 06:00 08/21/24 06:00 08/21/24 06:00 08/21/24 06:00
Cardiovascular:: Regular rate and rhythm
Respiratory:: Bilateral: Coarse
Lung Excursion:: Normal
Abdomen:: Nontender and Soft
Bowel Sounds:: Normal
Extremity Edema:: None: Bilateral:
[2024-08-22] VITALS (21 sets, daily range): BP systolic 81–124; BP diastolic 28–106; BMI 23.6; BMI 22.9
[2024-08-22 04:52] LABS: Hematocrit 24.1 % (39.0-52.0); Hemoglobin 8.3 g/dL (13.0-18.0); Mean Corp Hgb Conc. 34.4 g/dL (33.0-37.0); Mean Corpuscular Volume 101.7 fL (80.0-94.0); Mean Platelet Volume 10.1 fL (7.4-10.4); Platelet Count 294 10^3/uL (130-400); Red Blood Cell Count 2.37 10^6/uL (4.70-6.10); White Blood Cell Count 9.6 10^3/uL (4.8-10.8)
--- NOTE | 2024-08-22 05:02 | PTCARENOTE ---
Assume care from AM RN. VSZoila. AAOx3 pleasant. NSR w/ BBB. Lung sounds are diminished at the bases, occasional dry cough. SaO2 96% RA. Abd round. Oliguric. PD Q4 dwelling. Call molina within reach. Will continue w/ tx plan.
[2024-08-22 05:23] LABS: Blood Urea Nitrogen 48 mg/dl (9-20); Calcium 8.6 mg/dl (8.4-10.2); Carbon Dioxide 28 mmol/L (22-30); Chloride 94 mmol/L (98-107); Estimated Creatinine Clearance 6 ml/min; Glucose 100 mg/dl (70-99); Potassium 4.3 mmol/L (3.5-5.1); Sodium 135 mmol/L (135-145); eGFR 5.44
[2024-08-22] MEDS: SYNTHROID 150 MCG PO (06:16)
--- NOTE | 2024-08-22 06:45 | W.PN.HOSP.TC ---
Today's Communication/Plan
-
Discharge planning
Home care
Assessment / Plan
Assessment / Plan
Physical Exam
General: No Apparent Distress, Comfortable and Appears Chronically Ill
HEENT: Moist mucous membranes and Atraumatic
Respiratory: Clear
Cardiac: S1/S2 and Regular Rhythm
GI: Soft, Non Tender and Other (Drain )
Genito-urinary: No costovertebral tender
Musculoskeletal: No Cyanosis and No Edema
Skin: No Jaundice
Neuro: Awake and Oriented; No Slurred Speech or Tremors
Psych: Calm and Intact Judgment/Insight
79 male presented with weakness and orthostatic hypotension
# Orthostatic hypotension/ Patient had a near syncopal episode and the nurse rechecked his blood pressure which was 76/57 at which point EMS was activated
BP 106/ 72 ( checked this morning)
Recent change to BP by PCP due to low blood pressure : stopped Amlodipine and reduced Lisinopril
Now we held his BP medications
Reviewing recent hospitalization, it was also noted to have low Bp. He might be unable to tolerate BP medications
Will monitor and decide if he will need BP medication
Ortho vitals BID.
c/w telemetry
EKG SR
Holding BP medications for now
Avoid further IVF due to ESRD
Give midodrine PRN
PT recommended to c[facility]
On admission: No fever, no leukocytosis, no abdominal pain, no cough, doubt infectious source
# leukocytosis, reactive, resolved, WBC 9.6 today.
#History of left occipital stroke/ Severe left carotic stenosis
Status post left carotid angioplasty by Dr Nickerson on 08/11
c/w Plavix
# History of Coronary artery disease status post coronary artery bypass
No chest pain
# Paroxysmal atrial fibrillation Hx of chronic Heart failure-recovered ejection fraction
c/w Eliquis, Amiodarone
# End-stage renal disease on peritoneal dialysis
No abdominal pain or tenderness
Drain looks clean
Appreciate nephrology help
# Hx of essential hypertension
Holding oral BP medications for now
# Hypothyroidism
# Anemia of chronic kidney disease
HGB around 8
# Code status: DNR
Total time spent to see the patient, examine the patient, review data and lab results, discuss treatment plan with patient, nursing staff around 55 minutes
Anticipated Discharge: Within 24 hours
Subjective/Interval History
-
Date of Service: August 22, 2024
He feels better
No chest pain, no sob, no fevers
Objective Data
-
Labs:
Laboratory Results
08/22/24
04:35
WBC 9.6
Hgb 8.3 L
Hct 24.1 L
Plt Count 294
Sodium 135
Potassium 4.3
Chloride 94 L
Carbon Dioxide 28
BUN 48 H
Creatinine 9.1 H*
Glucose 100 H
Calcium 8.6
Vital Signs:
Vital Signs
Temp Pulse Resp BP Pulse Ox
98.6 F 78 12 97/28 98
08/22/24 05:03 08/22/24 04:00 08/22/24 04:00 08/22/24 04:00 08/22/24 04:00
I&O
08/20/24 08/21/24 08/22/24
06:59 06:59 06:59
Intake Total 240 / 240
Output Total 2400 / 2400 1300 / 1300
Balance -2400 / -2400 -1060 / -1060
[2024-08-22] MEDS: PACERONE 200 MG PO (08:54)
[2024-08-22] MEDS: MAG-TAB SR 84 MG PO (08:54)
[2024-08-22] MEDS: OSCAL CAL 500 500 MG PO ×3 (08:54→21:40)
[2024-08-22] MEDS: ELIQUIS 2.5 MG PO ×2 (08:54→20:44)
[2024-08-22] MEDS: PLAVIX 75 MG PO (08:55)
[2024-08-22] MEDS: LIPITOR 40 MG PO (08:55)
[2024-08-22] MEDS: PROTONIX 40 MG PO (08:55)
--- NOTE | 2024-08-22 10:42 | W.PN.NEPH.PH ---
Today's Communication / Plan
-
PD ordered
Assessment/Plan
-
Impression:
Syncope
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
Left carotid stenosis
End-stage renal disease on peritoneal dialysis
Hypertension
Paroxysmal atrial fibrillation
Hyperphosphatemia
Anemia
History of CABG
h/o bilat CEA at [place]
TCAR 08/11/2024
Plan:
PD orders provided
Will exchange every 4 hours with 2 L of 1.5% solution
off BP meds
follow BP trend, try to avoid midodrine
He feels well, no intervention for morning hypotension
-
-
Date of Service: August 22, 2024
CC / HPI / ROS
-
Chief Complaint:
ESRD
History of Present Illness:
PD in progress
BP low this am again, but better throughout the day
WBC down to 9.6
Review of Systems:
no CP/SOB
Labs
-
Labs:
WBC 9.6 10^3/uL (4.8-10.8) 08/22/24 04:35
RBC 2.37 10^6/uL (4.70-6.10) L 08/22/24 04:35
Hgb 8.3 g/dL (13.0-18.0) L 08/22/24 04:35
Hct 24.1 % (39.0-52.0) L 08/22/24 04:35
Plt Count 294 10^3/uL (130-400) 08/22/24 04:35
Sodium 135 mmol/L (135-145) 08/22/24 04:35
Potassium 4.3 mmol/L (3.5-5.1) 08/22/24 04:35
Chloride 94 mmol/L (98-107) L 08/22/24 04:35
Carbon Dioxide 28 mmol/L (22-30) 08/22/24 04:35
BUN 48 mg/dl (9-20) H 08/22/24 04:35
Creatinine 9.1 mg/dL (0.7-1.3) H* 08/22/24 04:35
eGFR 5.44 08/22/24 04:35
Glucose 100 mg/dl (70-99) H 08/22/24 04:35
Calcium 8.6 mg/dl (8.4-10.2) 08/22/24 04:35
Albumin 3.5 g/dl (3.5-5.0) 08/20/24 14:09
Physical Exam
-
Vital Signs:
Vital Signs
Temp Pulse Resp BP Pulse Ox
97.8 F 78 12 97/28 96
08/22/24 07:30 08/22/24 04:00 08/22/24 04:00 08/22/24 04:00 08/22/24 10:30
Cardiovascular:: Regular rate and rhythm
Respiratory:: Bilateral: Coarse
Lung Excursion:: Normal
Abdomen:: Nontender and Soft
Bowel Sounds:: Normal
Extremity Edema:: None: Bilateral:
[2024-08-22] MEDS: ProAmatine 5 MG PO (20:47)
--- NOTE | 2024-08-22 21:07 | PTCARENOTE ---
Pt awake and oriented, c/o urge to have BM. Pt sat in bathroom for over 30 mins and was eventually able to have small BM. States that he has been taking stool softeners at home, but is unsure if he has received them during admission. Education
provided and pt discouraged from sitting on toilet for extended periods of time, as well as discouraged from bearing down repeatedly to have BM. This RN will pass along to next shift that pt would benefit from bowel regimen. Upon return to bed, pt
BP 81/57 MAP 61, HR 90. Pt c/o feeling very weak. PRN midodrine provided per DEC. BP improved to 101/55 MAP 68. Pt in dwell portion of PD at this time. This RN will continue PD per orders. Call molina within reach. Pt rings appropriately.
[2024-08-23] VITALS (18 sets, daily range): BP systolic 94–138; BP diastolic 45–83; PULSE 73; O2SAT 97
[2024-08-23] MEDS: SYNTHROID 150 MCG PO (05:14)
--- NOTE | 2024-08-23 07:38 | PTCARENOTE ---
On walkinng rounds Pt AAOx3 sitting on side of bed eating breakfast on ra lugs are clear. PD exchange started with katarzyna
[2024-08-23] MEDS: MAG-TAB SR 84 MG PO (07:48)
[2024-08-23] MEDS: PROTONIX 40 MG PO (07:48)
[2024-08-23] MEDS: PLAVIX 75 MG PO (07:49)
[2024-08-23] MEDS: OSCAL CAL 500 500 MG PO (07:49)
[2024-08-23] MEDS: ELIQUIS 2.5 MG PO (08:07)
[2024-08-23] MEDS: LIPITOR 40 MG PO (08:07)
[2024-08-23] MEDS: PACERONE 200 MG PO (08:07)
--- NOTE | 2024-08-23 11:48 | W.PN.NEPH.PH ---
Today's Communication / Plan
-
cotn PD same
Assessment/Plan
-
Impression:
Syncope
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
Left carotid stenosis
End-stage renal disease on peritoneal dialysis
Hypertension
Paroxysmal atrial fibrillation
Hyperphosphatemia
Anemia
History of CABG
h/o bilat CEA at [place]
TCAR 08/11/2024
Plan:
hemodynamically stable
BP remain soft, holding all anti HTNs and midodrine
cont PD 1.5 % Q4h exchanges, reviewed net balance, UF 600cc for last 24hrs
working with PT
d/c plan
-
-
Date of Service: August 23, 2024
CC / HPI / ROS
-
Chief Complaint:
ESRD
History of Present Illness:
PD in progress
BP low this am again sbp 90s, but better throughout the day
WBC down to 9.6, hb 8.3 on 08/22
Review of Systems:
no CP/SOB
feels well
Labs
-
Labs:
WBC 9.6 10^3/uL (4.8-10.8) 08/22/24 04:35
RBC 2.37 10^6/uL (4.70-6.10) L 08/22/24 04:35
Hgb 8.3 g/dL (13.0-18.0) L 08/22/24 04:35
Hct 24.1 % (39.0-52.0) L 08/22/24 04:35
Plt Count 294 10^3/uL (130-400) 08/22/24 04:35
Sodium 135 mmol/L (135-145) 08/22/24 04:35
Potassium 4.3 mmol/L (3.5-5.1) 08/22/24 04:35
Chloride 94 mmol/L (98-107) L 08/22/24 04:35
Carbon Dioxide 28 mmol/L (22-30) 08/22/24 04:35
BUN 48 mg/dl (9-20) H 08/22/24 04:35
Creatinine 9.1 mg/dL (0.7-1.3) H* 08/22/24 04:35
eGFR 5.44 08/22/24 04:35
Glucose 100 mg/dl (70-99) H 08/22/24 04:35
Calcium 8.6 mg/dl (8.4-10.2) 08/22/24 04:35
Albumin 3.5 g/dl (3.5-5.0) 08/20/24 14:09
Physical Exam
-
Vital Signs:
Vital Signs
Temp Pulse Resp BP Pulse Ox
98.6 F 73 14 108/50 98
08/23/24 07:48 08/23/24 10:00 08/23/24 10:00 08/23/24 10:00 08/23/24 10:00
Cardiovascular:: Regular rate and rhythm
Respiratory:: Bilateral: CTA
Lung Excursion:: Normal
Abdomen:: Nontender and Soft
Extremity Edema:: None: Bilateral:
Gavin Catheter: No
--- NOTE | 2024-08-23 12:46 | W.PN.HOSP.TC ---
Today's Communication/Plan
-
DC home with home care
Assessment / Plan
Assessment / Plan
Physical Exam
NAD, resting comfortably in bed
Scleral anicteric
Moist mucous membranes
No JVD
CTA bilateral
Normal S1-S2 no murmurs
Soft nontender nondistended bowel sounds active
No peripheral pitting edema
Moves extremities spontaneously
AAOx3
Assessment and Plan
Hypotension
-Medication induced
-Lisinopril held
-Amlodipine held
-Started on as needed midodrine for SBP greater than 100
Orthostatic hypotension
-Positive on the negative on the
-Hold antihypertensives
-Started on as needed midodrine
-Compression stockings if continues to have abdominal
ESRD on peritoneal dialysis
-Continue to follow nephrology recommendation
-Continue outpatient peritoneal dialysis
Paroxysmal atrial fibrillation
-On Eliquis in
DC home with home care
Anticipated Discharge: Today
Subjective/Interval History
-
Date of Service: August 23, 2024
Seen and examined. No new complaints. No acute overnight events.
Objective Data
-
Vital Signs:
Vital Signs
Temp Pulse Resp BP Pulse Ox
98.6 F 71 9 119/48 99
08/23/24 07:48 08/23/24 12:00 08/23/24 12:00 08/23/24 12:00 08/23/24 10:18
I&O
08/22/24 08/23/24 08/24/24
06:59 06:59 06:59
Intake Total 240 / 240 120 / 120
Output Total 1300 / 1300 600 / 600 300 / 300
Balance -1060 / -1060 -480 / -480 -300 / -300
--- NOTE | 2024-08-23 12:56 | W.DCSUMMARY ---
Discharge Summary
Discharge Data
Date of Admission: 08/20/24
Date of Discharge: 08/23/24
-
Pending Results: No
Hospital Course
79 male history of left occipital stroke with severe left carotid stenosis, CAD, hypertension, hyperlipidemia, hypothyroidism, anemia of CKD, atrial fibrillation, ESRD on PD who presented with low blood pressure and was advised to the hospital.
Noted to be on lisinopril recently decreased dose and stopped taking amlodipine per PCP recommendations. It was reported that he experienced weakness and dizziness mostly upon standing. Orthostatic vitals were positive. IV fluids provided with
improvement. Evaluated by physical therapy recommended home physical therapy personal needs. Seen by nephrology for peritoneal dialysis
Discharge Plan
-
Patient Disposition: Home with Home Care
Discharge Diagnosis/Procedures: orthostatic hypotension
Left occipital stroke with severe left carotid stenosis, CAD, hypertension, hyperlipidemia, hypothyroidism, anemia of CKD, atrial fibrillation, ESRD on PD
Condition: Fair
Diet: As tolerated
Activity: As tolerated
Referrals:
Iliana Hoang CRNP [Family Provider] -
Additional Discharge Medication Instructions: if sbp <100 then please take one midrine 5mg tablet
stop all blood pressure medication such as
-lisinopril
-amlodopine
Prescriptions:
New
midodrine 5 mg tablet
5 mg PO TID PRN (Reason: sbp <100) Qty: 30 0RF
Continued
amiodarone 200 mg Tablet
200 mg PO DAILY
cyanocobalamin (vitamin B-12) 1,000 mcg Tablet
1,000 mcg PO DAILY
magnesium oxide 400 mg (241.3 mg magnesium) Tablet
400 mg PO DAILY
docusate sodium [Colace] 100 mg Capsule
100 mg PO DAILY
atorvastatin 40 mg Tablet
40 mg PO DAILY
levothyroxine 150 mcg Tablet
150 mcg PO DAILY
calcium carbonate 500 mg calcium (1,250 mg) Tablet,Chewable
500 mg PO TID
cholecalciferol (vitamin D3) [Vitamin D3] 25 mcg (1,000 unit) Tablet
25 mcg PO DAILY
Dialyvite 800 800 mcg Tablet,Chewable
1 tab PO DAILY
clopidogrel 75 mg Tablet
75 mg PO DAILY 30 Days Qty: 30 0RF
Eliquis 5 mg tablet
2.5 mg PO BID
Patient Comments:
08/20/24-patient has his mom old bottles and there 2.5mg and he has not been taking enough to make dose.
pantoprazole 40 mg Tablet,Delayed Release (Dr/Ec)
40 mg PO DAILY Qty: 30 0RF
acetaminophen [Tylenol Extra Strength] 500 mg Tablet
1,000 mg PO Q6HPRN PRN (Reason: mild pain)
Discontinued
lisinopril 20 mg Tablet
40 mg PO DAILY
Discharge Orders:
Discharge Patient (As Directed); Ordered 08/23/24
Ordered By: Monico Pedroza
Discharge Date and Time
Print Language: NORWEGIAN
--- NOTE | 2024-08-23 15:25 | PTCARENOTE ---
Pt left via [place] with manjit samaniego
--- NOTE | 2024-08-23 16:45 | CM ---
Patient with Hx ESRD on PD. Room air. PT Eval; home PT vs no needs. OT Eval; HH.
Met with patient;
the patient resides alone in a mobile home with ramp entrance.
Son Hossein who is POA lives in 1 story house at same location.
The patient requires assistance with ADLs and ambulates independently sometimes using SPC whn outside.
The patient has 2 private pay caregivers 4 hrs/day 7 days/week, who assist patient with daily PD, Luzma Snow and Mackenzie on weekends.
Both caregivers assist patient with PD.
They shop for patient and drive him to medical appts.
DME - SPC, RW, w/c, Patient obtains PD supplies from [facility].
Current with [facility] for PT and wishes to resume.
Prior [facility]
PCP - Iliana Hoang
Pharmacy - [facility]
Spoke with mary lou Catalan; he requests patient to have VN for nurse, as well as PT through [facility]- agree to set patient up.
Referral to [facility] (fax [phone]; they are able to accept.
Referral to [facility] (fax [phone]); they are able to resume PT and can add OT.
Patient and mary lou Catalan agree with d/c today. IMM done. Son arranged for caregiver to provide transport home today.
Plan home today with [facility] & [facility], with caregiver transporting.
== END 2024-08-23 15:28 | disposition home health service (06) | DRG 312 ==
LOC: IMU 16:15
PROVIDERS: Emergency Medicine; ADMITTING PHYSICIAN Internal Medicine; ATTENDING PHYSICIAN Hospitalist; EMERGENCY PHYSICIAN Emergency Medicine; FAMILY PHYSICIAN Nurse Practitioner Family; OTHER PHYSICIAN Specialist
DX: I95.1 Orthostatic hypotension (principal); N18.6 End stage renal disease; I13.2 Hypertensive heart and chronic kidney disease with heart failure and with stage 5 chronic kidney disease, or end stage renal disease; I50.42 Chronic combined systolic (congestive) and diastolic (congestive) heart failure; I48.0 Paroxysmal atrial fibrillation; E03.9 Hypothyroidism, unspecified; D63.1 Anemia in chronic kidney disease; Z66 Do not resuscitate; I25.10 Atherosclerotic heart disease of native coronary artery without angina pectoris; Z99.2 Dependence on renal dialysis; E78.00 Pure hypercholesterolemia, unspecified; I95.2 Hypotension due to drugs
CPT/HCPCS: 80048; 80053; 85025; 85027; 85730; 87070; 93005; 96360; 97162; 97166; 97530; 99284

== ENCOUNTER → 2024-10-01 15:28 | Outpatient (REF) | payer MEDICARE, BC, SELFPAY | LOC: DHVS 15:28 | PROVIDERS: ATTENDING PHYSICIAN Registered Nurse; FAMILY PHYSICIAN Nurse Practitioner Family | DX: I65.23 Occlusion and stenosis of bilateral carotid arteries (principal) | CPT/HCPCS: 93880 ==

== ENCOUNTER 2024-10-27 14:48 | Emergency (ER) | payer MEDICARE, BC, SELFPAY ==
[2024-10-27 14:53] VITALS: BP 187/95
[2024-10-27 15:27] LABS: % Eosinophils 4.4 % (0-6); % Lymphocytes 23.6 % (20.5-51.1); % Monocytes 6.6 % (1.7-9.3); % Neutrophils 62.4 % (42.2-75.2); Absolute Basophils 0.1 10^3/uL (0-0.2); Absolute Eosinophils 0.5 10^3/uL (0-0.7); Absolute Immature Granulocytes 0.2 10^3/uL (0-0.05); Absolute Lymphocytes 2.9 10^3/uL (1.2-3.4); Absolute Monocytes 0.8 10^3/uL (0.1-0.6); Absolute Neutrophils 7.6 10^3/uL (1.4-6.5); Hematocrit 26.3 % (39.0-52.0); Mean Corp Hgb Conc. 34.2 g/dL (33.0-37.0); Mean Corpuscular Hgb 33.7 pg (27.0-31.0); Mean Corpuscular Volume 98.5 fL (80.0-94.0); Mean Platelet Volume 10.3 fL (7.4-10.4); Nucleated Red Blood Cells % 0.2 % (-); Platelet Count 297 10^3/uL (130-400); Red Blood Cell Count 2.67 10^6/uL (4.70-6.10); Red Cell Dist. Width 17.5 % (11.5-14.5); White Blood Cell Count 12.2 10^3/uL (4.8-10.8)
[2024-10-27 15:33] LABS: INR 1.71; PT 20.3 Sec (11.4-14.6)
[2024-10-27 15:42] LABS: ALT (SGPT) 14 U/L (0-50); AST (SGOT) 15 U/L (17-59); Albumin 3.4 g/dl (3.5-5.0); Alkaline Phosphatase 88 U/L (38-126); Blood Urea Nitrogen 32 mg/dl (9-20); Calcium 8.5 mg/dl (8.4-10.2); Carbon Dioxide 30 mmol/L (22-30); Chloride 92 mmol/L (98-107); Glucose 113 mg/dl (70-99); Potassium 3.4 mmol/L (3.5-5.1); Sodium 134 mmol/L (135-145); Total Bilirubin 0.3 mg/dl (0.2-1.3); Total Protein 5.7 g/dl (6.3-8.2); eGFR 4.58
[2024-10-27 15:49] LABS: Troponin I 0.013 ng/ml
--- NOTE | 2024-10-27 19:10 | ED.GENMED ---
History of Present Illness
<Maggi Tijerina PA-C - Last Filed: 10/28/24 01:04>
General
Chief Complaint: Fall
Source: patient and family (Daughter at bedside contributing to history)
Exam Limitations: none
Time Seen by Provider: 10/27/24 18:09
Nursing documentation reviewed up to this point in time: agreed with
History of Present Illness
History of Present Illness:
Patient is a 79-year-old male with history hypertension, hyperlipidemia, ESRD on peritoneal dialysis presenting to the emergency department after fall last night. Patient states that his legs felt weak yesterday while he was in the bathroom which
is not atypical for him and he slowly fell to the ground. Fortunately he was able to somehow brace himself but did strike his right flank on the toilet. He denies any head strike or loss of consciousness. He was able to slowly get himself back up
into bed. Patient reports significant pain in his right posterior/lower ribs. Pain is definitely worse with movement. No shortness of breath, cough, fever.Patient denies any headache, vomiting, changes in vision, confusion. Patient denies any
pain in his extremities.
Patient does have a visiting nurse who was examining patient today and recommended that he be seen in the emergency department to rule out a rib fracture.
Patient lives at home with his daughter. He states he typically does feel a little bit weak after lying around for a while. He receives peritoneal dialysis daily at home.
Past History
<Maggi Tijerina PA-C - Last Filed: 10/28/24 01:04>
Past History
ED Past Medical History: CVA (Chronic right frontal, acute left occipital and frontal), HTN, Hypercholesterolemia and Other (Renal failure/peritoneal dialysis, left internal carotid artery stenosis)
ED Past Surgical History: Other (Dialysis catheter)
Social History
Tobacco: Non-smoker
Alcohol: None
Family History
Family History: Other (Reviewed and noncontributory)
Review of Systems
<Maggi Tijerina PA-C - Last Filed: 10/28/24 01:04>
Review of Systems
Allergies reviewed?: Yes
All Other Systems: ROS reviewed and negative except as documented in HPI and ROS
Phy Exam
<Maggi Tijerina PA-C - Last Filed: 10/28/24 01:04>
Physical Exam
Physical Exam:
Vitals: Hypertensive, otherwise vital signs stable. Afebrile
General: Patient is chronically ill-appearing, no acute distress
Skin: Warm and dry, no rashes or lesions
Head: Normocephalic, atraumatic
Eyes: Sclera nonicteric. EOMs intact. No nystagmus.
Throat: Protecting airway
Neck: Normal ROM, no cervical spine tenderness, no meningismus
Cardiac: Regular rate and rhythm, no murmurs. Reproducible tenderness over right posterior lower ribs. No ecchymoses, crepitus.
Pulm: O2 saturation 100 on room air. Normal respiratory effort, no wheezes, rales, rhonchi heard on exam.
Abdomen: Mildly distended. Abdomen soft. No abdominal tenderness.
Extremities: No evidence of cyanosis or edema. Bilateral upper and lower extremities atraumatic and nontender with full range of motion
Neuro: AAOx3. Grossly intact.
Psychiatric: Normal affect.
Course
<Maggi Tijerina PA-C - Last Filed: 10/28/24 01:04>
Orders/Labs/Results
Orders:
Orders
10/27/24 14:55
Electrocardiogram (*1) Urgent
Reason for Study: Chest Pain
EKG- Treatment ONCE
10/27/24 15:15
Type+Screen Urgent
Complete Blood Count/With Diff Urgent
Comprehensive Metabolic Panel Urgent
Prothrombin Time Urgent
Troponin I Urgent
10/27/24 15:35
Ribs, Right 3 View W/PA Chest [CR Ribs-right 3 Vw W/pa Chest*] Urgent
Comment:
Reason For Exam: pain
10/27/24 19:04
Acetaminophen [Tylenol] 650 mg PO NOW STA
10/27/24 19:10
Lidocaine [Lidocaine 4% Patch] 1 patch .ROUTE .STK-MED ONE
10/28/24 08:00
Lidocaine [Lidocaine 4% Patch] 1 patch TOPICAL DAILY
Apply Lidocaine patch(s) to:: R flank
Abnormal Lab Results
10/27/24
15:15
WBC 12.2 H 10^3/uL
(4.8-10.8)
RBC 2.67 L 10^6/uL
(4.70-6.10)
Hgb 9.0 L g/dL
(13.0-18.0)
Hct 26.3 L %
(39.0-52.0)
MCV 98.5 H fL
(80.0-94.0)
MCH 33.7 H pg
(27.0-31.0)
RDW 17.5 H %
(11.5-14.5)
Abs Immat Gran (auto) 0.2 H 10^3/uL
(0-0.05)
Absolute Neuts (auto) 7.6 H 10^3/uL
(1.4-6.5)
Absolute Monos (auto) 0.8 H 10^3/uL
(0.1-0.6)
Immature Gran % 2.0 H %
(0-0.5)
PT 20.3 H Sec
(11.4-14.6)
Sodium 134 L mmol/L
(135-145)
Potassium 3.4 L mmol/L
(3.5-5.1)
Chloride 92 L mmol/L
(98-107)
BUN 32 H mg/dl
(9-20)
Creatinine 10.5 H* mg/dL
(0.7-1.3)
Glucose 113 H mg/dl
(70-99)
AST 15 L U/L
(17-59)
Total Protein 5.7 L g/dl
(6.3-8.2)
Albumin 3.4 L g/dl
(3.5-5.0)
10/27/24 15:15
10/27/24 15:15
Vital Signs
Initial and Last Documented VS:
Initial Vital Signs
Temp Pulse Resp BP Pulse Ox
98.2 F 73 16 187/95 100
10/27/24 14:53 10/27/24 14:53 10/27/24 14:53 10/27/24 14:53 10/27/24 14:53
Last Documented Vital Signs
Temp Pulse Resp BP Pulse Ox
98.2 F 73 18 187/95 100
10/27/24 14:53 10/27/24 14:53 10/27/24 18:40 10/27/24 14:53 10/27/24 14:53
<Dov Rodriguez, - Last Filed: 10/27/24 19:35>
Orders/Labs/Results
Orders:
Orders
10/27/24 14:55
Electrocardiogram (*1) Urgent
Reason for Study: Chest Pain
EKG- Treatment ONCE
10/27/24 15:15
Type+Screen Urgent
Complete Blood Count/With Diff Urgent
Comprehensive Metabolic Panel Urgent
Prothrombin Time Urgent
Troponin I Urgent
10/27/24 15:35
Ribs, Right 3 View W/PA Chest [CR Ribs-right 3 Vw W/pa Chest*] Urgent
Comment:
Reason For Exam: pain
10/27/24 19:04
Acetaminophen [Tylenol] 650 mg PO NOW STA
10/27/24 19:10
Lidocaine [Lidocaine 4% Patch] 1 patch .ROUTE .STK-MED ONE
10/28/24 08:00
Lidocaine [Lidocaine 4% Patch] 1 patch TOPICAL DAILY
Apply Lidocaine patch(s) to:: R flank
Abnormal Lab Results
10/27/24
15:15
WBC 12.2 H 10^3/uL
(4.8-10.8)
RBC 2.67 L 10^6/uL
(4.70-6.10)
Hgb 9.0 L g/dL
(13.0-18.0)
Hct 26.3 L %
(39.0-52.0)
MCV 98.5 H fL
(80.0-94.0)
MCH 33.7 H pg
(27.0-31.0)
RDW 17.5 H %
(11.5-14.5)
Abs Immat Gran (auto) 0.2 H 10^3/uL
(0-0.05)
Absolute Neuts (auto) 7.6 H 10^3/uL
(1.4-6.5)
Absolute Monos (auto) 0.8 H 10^3/uL
(0.1-0.6)
Immature Gran % 2.0 H %
(0-0.5)
PT 20.3 H Sec
(11.4-14.6)
Sodium 134 L mmol/L
(135-145)
Potassium 3.4 L mmol/L
(3.5-5.1)
Chloride 92 L mmol/L
(98-107)
BUN 32 H mg/dl
(9-20)
Creatinine 10.5 H* mg/dL
(0.7-1.3)
Glucose 113 H mg/dl
(70-99)
AST 15 L U/L
(17-59)
Total Protein 5.7 L g/dl
(6.3-8.2)
Albumin 3.4 L g/dl
(3.5-5.0)
10/27/24 15:15
10/27/24 15:15
Vital Signs
Initial and Last Documented VS:
Initial Vital Signs
Temp Pulse Resp BP Pulse Ox
98.2 F 73 16 187/95 100
10/27/24 14:53 10/27/24 14:53 10/27/24 14:53 10/27/24 14:53 10/27/24 14:53
Last Documented Vital Signs
Temp Pulse Resp BP Pulse Ox
98.2 F 73 18 187/95 100
10/27/24 14:53 10/27/24 14:53 10/27/24 18:40 10/27/24 14:53 10/27/24 14:53
<Maggi Tijerina PA-C - Last Filed: 10/28/24 01:04>
MDM/Problems Addressed
Differential Diagnosis Includes:
Not limited to: Rib fracture, rib contusion, pneumothorax, electrolyte abnormality, cardiac arrhythmia, etc.
MDM/Problems Addressed:
79-year-old male with history as documented presenting with right posterior rib pain following mechanical fall last night. There was no head strike or loss of consciousness. Patient without any shortness of breath. No pain in his extremities.
Lives at home with daughter. Hypertensive, otherwise patient has stable vital signs. He is afebrile. He is not hypoxic. Physical exam as above. There is no evidence of head or neck trauma. No evidence of extremity injuries. Heart regular rate
and rhythm. Lungs are clear bilaterally. He does have reproducible tenderness on right posterior lateral ribs. Labs initiated in triage and reviewed. Mild leukocytosis. Chronic anemia noted. Chronic renal insufficiency noted. EKG without
acute ischemic changes. A rib series was obtained in triage which does not show any evidence of acute rib fracture. No associated pneumothorax/hemothorax.
Ultimately�suspect rib contusion. Lab values appear stable. Given patient's mild increasing weakness�admission was offered to patient. However�patient states his weakness is essentially baseline and he would like to be discharged home. Did get
patient up and walking he was able to ambulate with assistance. Patient given Tylenol, lidocaine patch. Overall no acute findings. Patient not hypoxic. Both patient and daughter comfortable with discharge home. Will provide incentive
spirometer. Advised Tylenol/lidocaine patches as needed at home. Very close return precautions discussed with patient and daughter. Case seen with attending physician.
Chronic conditions affecting care:
hypertension, ESRD on peritoneal dialysis
Acute Exacerbation and/or Progression of Chronic Illness:
Acutely hypertensive
<Maggi Tijerina PA-C - Last Filed: 10/28/24 01:04>
*Radiology
Radiology exam reviewed: radiology read reviewed (No rib fracture)
*Pulse Oximetry
Patient hypoxic: no
*EKG
Interpreted by ED Provider?: Yes
EKG Intrepretation Date: 10/27/24
Interpretation: abnormal
Comparison EKG: no changes
Heart Rate: 75
Rate: normal
Rhythm: sinus
Interval: first degree heart block
Ischemia: non-specific ST changes
*Farm Contractor Buyer Interpretation
Rate: Farm Contractor Buyer- N/A
*Critical Care Note
Total Time (30-74mins, 75-104mins- exclusive of procedures): Not Applicable
ED Attending Note
<Maggi Tijerina PA-C - Last Filed: 10/28/24 01:04>
-
Portions of this chart may have been created with voice recognition software.� Occasional wrong word or��sound alike� substitutions may have occurred due to the inherent limitations of voice recognition software.
<Dov Rodriguez DO - Last Filed: 10/27/24 19:35>
ED Attending Note
Patient seen and examined by attending physician: Yes
I performed the substantive portion of visit, reviewed & personally made and approve the management plan that is documented in note by myself or MENA.: Yes
Discharge Plan
Departure
Patient Disposition: Home (Routine Discharge)
Date of Disposition: 10/27/24
Time of Disposition: 19:39
Patient with high blood pressure during this ER visit?: Yes
Condition: Good
Covid-19: Not Applicable
Discharge Problem:
Fall, Contusion of rib on right side
Instructions: Preventing falls in adults, How to use an incentive spirometer, Rib fracture or bruised rib - ED discharge instructions, BLOOD PRESSURE
Prescriptions:
No Action
amiodarone 200 mg Tablet
200 mg PO DAILY
cyanocobalamin (vitamin B-12) 1,000 mcg Tablet
1,000 mcg PO DAILY
magnesium oxide 400 mg (241.3 mg magnesium) Tablet
400 mg PO DAILY
docusate sodium [Colace] 100 mg Capsule
100 mg PO DAILY
atorvastatin 40 mg Tablet
40 mg PO DAILY
levothyroxine 150 mcg Tablet
150 mcg PO DAILY
calcium carbonate 500 mg calcium (1,250 mg) Tablet,Chewable
500 mg PO TID
cholecalciferol (vitamin D3) [Vitamin D3] 25 mcg (1,000 unit) Tablet
25 mcg PO DAILY
Dialyvite 800 800 mcg Tablet,Chewable
1 tab PO DAILY
clopidogrel 75 mg Tablet
75 mg PO DAILY 30 Days Qty: 30 0RF
Eliquis 5 mg tablet
2.5 mg PO BID
Patient Comments:
08/20/24-patient has his mom old bottles and there 2.5mg and he has not been taking enough to make dose.
pantoprazole 40 mg Tablet,Delayed Release (Dr/Ec)
40 mg PO DAILY Qty: 30 0RF
acetaminophen [Tylenol Extra Strength] 500 mg Tablet
1,000 mg PO Q6HPRN PRN (Reason: mild pain)
midodrine 5 mg tablet
5 mg PO TID PRN (Reason: sbp <100) Qty: 30 0RF
Referrals:
Iliana Hoang CRNP [Family Provider] - Follow up in 5-7 days
Activity Restrictions/Additional Instructions:
Return to the emergency department with any intractable pain, chest pain, shortness of breath/difficulty breathing, productive cough, high fevers, coughing up blood, significant weakness, worsening current symptoms, or any other concerns
-As discussed your x-ray from the emergency department did not show any evidence of a rib fracture. However I suspect you likely bruised a rib.
-Continue to take Tylenol and use [id number] lidocaine patches as needed for pain relief.
-You were discharged with incentive spirometer. You should use this 6 times per hour when awake to exercise your lungs.
-Follow-up with your primary care for further evaluation/management and to ensure symptoms are improving
Monitor your symptoms closely return to the emergency department with any acute worsening/new symptoms or any other concerns
Interventions
Interventions:
*Risk Screen - Suicide Last Done: 10/27/24 14:53
*General Assessment Last Done: 10/27/24 19:56
*Neglect/Abuse Screening Last Done: 10/27/24 14:53
ED- Fall Risk Assessment Last Done: 10/27/24 19:56
*ED COVID-19 Vaccine History Last Done: 10/27/24 19:56
*Nursing Disposition Last Done: 10/27/24 19:56
ED-Musculoskeletal Assessment Last Done: 10/27/24 18:39
ED- Neurological Assessment Last Done: 10/27/24 18:39
ED-Skin Assessment Last Done: 10/27/24 18:39
Discharge Date and Time
Discharge Date/Time: 10/27/24 19:57
Print Language: ITALIAN
[2024-10-27] MEDS: LIDOCAINE 4% PATCH 1 PATCH TOPICAL (19:12)
[2024-10-27] MEDS: TYLENOL 650 MG PO (19:12)
== END 2024-10-27 19:57 | disposition home or self-care (01) ==
LOC: EMR 14:48
PROVIDERS: Emergency Medicine; EMERGENCY PHYSICIAN Emergency Medicine; FAMILY PHYSICIAN Nurse Practitioner Family
DX: S20.211A Contusion of right front wall of thorax, initial encounter (principal); W19.XXXA Unspecified fall, initial encounter; I12.0 Hypertensive chronic kidney disease with stage 5 chronic kidney disease or end stage renal disease; N18.6 End stage renal disease; Z99.2 Dependence on renal dialysis; E78.00 Pure hypercholesterolemia, unspecified; Z86.73 Personal history of transient ischemic attack (TIA), and cerebral infarction without residual deficits
CPT/HCPCS: 99285; 71101; 80053; 84484; 85025; 85610; 86850; 86900; 86901; 93005

== ENCOUNTER 2024-10-29 02:10 | Inpatient (IN) | payer MEDICARE, BC, SELFPAY ==
[2024-10-28 19:34] VITALS: BMI 23.5
[2024-10-28 19:36] VITALS: BP 108/89
[2024-10-28 19:49] LABS: % Eosinophils 3.6 % (0-6); % Lymphocytes 18.3 % (20.5-51.1); % Monocytes 4.3 % (1.7-9.3); % Neutrophils 71.8 % (42.2-75.2); Absolute Basophils 0.1 10^3/uL (0-0.2); Absolute Eosinophils 0.4 10^3/uL (0-0.7); Absolute Immature Granulocytes 0.1 10^3/uL (0-0.05); Absolute Lymphocytes 1.9 10^3/uL (1.2-3.4); Absolute Monocytes 0.4 10^3/uL (0.1-0.6); Absolute Neutrophils 7.3 10^3/uL (1.4-6.5); Hematocrit 26.5 % (39.0-52.0); Hemoglobin 8.7 g/dL (13.0-18.0); Mean Corp Hgb Conc. 32.8 g/dL (33.0-37.0); Mean Corpuscular Hgb 32.7 pg (27.0-31.0); Mean Corpuscular Volume 99.6 fL (80.0-94.0); Mean Platelet Volume 9.9 fL (7.4-10.4); Nucleated Red Blood Cells % 0 % (-); Platelet Count 307 10^3/uL (130-400); Red Blood Cell Count 2.66 10^6/uL (4.70-6.10); White Blood Cell Count 10.1 10^3/uL (4.8-10.8)
[2024-10-28 20:13] LABS: ALT (SGPT) 16 U/L (0-50); AST (SGOT) 18 U/L (17-59); Albumin 3.5 g/dl (3.5-5.0); Alkaline Phosphatase 85 U/L (38-126); Blood Urea Nitrogen 35 mg/dl (9-20); Calcium 8.9 mg/dl (8.4-10.2); Carbon Dioxide 24 mmol/L (22-30); Chloride 92 mmol/L (98-107); Estimated Creatinine Clearance 5 ml/min; Glucose 143 mg/dl (70-99); Potassium 4.4 mmol/L (3.5-5.1); Sodium 132 mmol/L (135-145); Total Bilirubin 0.3 mg/dl (0.2-1.3); Total Protein 5.8 g/dl (6.3-8.2); eGFR 4.75
[2024-10-28 21:00] VITALS: BP 133/49
--- NOTE | 2024-10-28 21:02 | ED.GENMED ---
History of Present Illness
General
Chief Complaint: Fainting/Passed Out
Time Seen by Provider: 10/28/24 19:34
History of Present Illness
History of Present Illness:
79-year-old male with multiple comorbidities including end-stage renal disease on peritoneal dialysis, CAD, peripheral artery disease, hypertension A-fib on Eliquis presenting after syncopal episode. Patient reports prior to arrival he was sitting
on the toilet and had a bowel movement. He had difficulty getting up. His daughter tried to help him and he passed out, was lowered to the ground. Does note that there was some blood in the toilet bowl, however reports issues with hemorrhoids.
Notes that he has had syncopal episodes in the past, however as of recent has been feeling increasingly weak, where his legs have been giving out. Most recently had an episode 3 days ago where he fell, fell onto the right side of his ribs in the
bathroom with subsequent pain. He is still having pain to the area. He was seen in the hospital with a negative x-ray of the area. Denies cough or fever. Denies difficulty breathing. Denies any present abdominal pain. Denies focal weakness or
numbness to his extremities. Denies additional acute medical complaints
Past History
Past History
ED Past Medical History: CVA (Chronic right frontal, acute left occipital and frontal), HTN, Hypercholesterolemia and Other (Renal failure/peritoneal dialysis, left internal carotid artery stenosis)
ED Past Surgical History: Other (Dialysis catheter)
Social History
Tobacco: Non-smoker
Alcohol: None
Family History
Family History: Other (Reviewed and noncontributory)
Phy Exam
Physical Exam
Physical Exam:
General: Well-appearing, no clinical signs of dehydration, nontoxic and in no acute distress
HEENT: protecting airway
Neck: appears supple
CV: Normal heart rate, regular rhythm
Resp: No accessory muscle use, no increased work of breathing, lungs clear to auscultation bilaterally. Tenderness to right mid-axillary rib region, no crepitus or significant ecchymosis.
Abd: Soft and non-distended, no tenderness to palpation
Extremities: No deformities, no swelling, no erythema, pulses and sensation intact
Neuro: alert, no focal neurologic deficit
: patient declined
Rectal: deferred
Psych: Normal affect
Skin: Intact
Course
Orders/Labs/Results
Orders:
Orders
10/28/24 19:31
Electrocardiogram (*1) Urgent
Reason for Study: Syncope
10/28/24 19:32
EKG- Treatment ONCE
10/28/24 19:39
Complete Blood Count/With Diff Urgent
Comprehensive Metabolic Panel Urgent
10/28/24 20:45
CR Chest - 2 Views Urgent
Comment:
Reason For Exam: weakness, frequent falls
10/28/24 22:43
Orthostatic VS- Treatment ONCE
Abnormal Lab Results
10/28/24
19:39
RBC 2.66 L 10^6/uL
(4.70-6.10)
Hgb 8.7 L g/dL
(13.0-18.0)
Hct 26.5 L %
(39.0-52.0)
MCV 99.6 H fL
(80.0-94.0)
MCH 32.7 H pg
(27.0-31.0)
MCHC 32.8 L g/dL
(33.0-37.0)
RDW 18.0 H %
(11.5-14.5)
Abs Immat Gran (auto) 0.1 H 10^3/uL
(0-0.05)
Absolute Neuts (auto) 7.3 H 10^3/uL
(1.4-6.5)
Immature Gran % 1.0 H %
(0-0.5)
Lymphocytes % 18.3 L %
(20.5-51.1)
Sodium 132 L mmol/L
(135-145)
Chloride 92 L mmol/L
(98-107)
BUN 35 H mg/dl
(9-20)
Creatinine 10.2 H* mg/dL
(0.7-1.3)
Glucose 143 H mg/dl
(70-99)
Total Protein 5.8 L g/dl
(6.3-8.2)
10/28/24 19:39
10/28/24 19:39
Vital Signs
Initial and Last Documented VS:
Initial Vital Signs
Temp Pulse Resp Pulse Ox
97.3 F 70 18 99
10/28/24 19:28 10/28/24 19:28 10/28/24 19:28 10/28/24 19:28
Last Documented Vital Signs
Temp Pulse Resp BP Pulse Ox
97.3 F 68 18 153/57 97
10/28/24 19:28 10/28/24 22:00 10/28/24 22:14 10/28/24 22:00 10/28/24 22:00
MDM/Problems Addressed
MDM/Problems Addressed:
79-year-old male with significant comorbidities including end-stage renal disease on peritoneal dialysis, A-fib on Eliquis, hypertension, hyperlipidemia, PAD and peripheral vascular disease presenting after a syncopal episode. Vital signs on
arrival significant for low blood pressure.
On exam, patient in no acute distress or discomfort. No focal neurologic deficits on exam, mentating normally. No report of any head trauma or fall without concern for central neurologic process. Patient reports he did bowel movement, then trying
to stand up and had inability to do so. Suspected vasovagal component to symptoms. Possible volume depletion. Patient did not have his peritoneal dialysis tonight as of yet. Does note however that has been feeling weak for the past several days,
had a fall 3 days ago as well. X-ray at that time negative. Will plan for screening laboratory analysis and EKG. Additionally noted to have blood in the toilet bowl, history of hemorrhoids. Patient declining rectal exam at this time. Will
discuss with daughter, who patient lives with
21:10 - Patient's hemoglobin stable without concern for any significant blood loss. Discussion with daughter, notes that patient has been increasingly difficult to get around the house, and was sitting on the toilet for an hour prior to his episode
tonight. Notes that she is unable to get him around without assistance. For this reason patient will likely require admission for potential placement, possible [facility] facility.
23:20 -chest x-ray unchanged from prior visit. EKG is sinus rhythm with first-degree AV block, unchanged from prior EKG. To check orthostatics which were positive between all positions, and patient particularly unsteady upon standing, requiring 2
people to stand up. Was able to check a rectal exam, dried blood in the rectal area, no obvious thrombosed or bleeding hemorrhoids. Brown stool. Again plan for admission for orthostatic hypotension, weaknessadmission i
*Critical Care Note
Total Time (30-74mins, 75-104mins- exclusive of procedures): Not Applicable
ED Attending Note
-
Portions of this chart may have been created with voice recognition software.� Occasional wrong word or��sound alike� substitutions may have occurred due to the inherent limitations of voice recognition software.
Discharge Plan
Departure
Prescriptions:
No Action
amiodarone 200 mg Tablet
200 mg PO DAILY
cyanocobalamin (vitamin B-12) 1,000 mcg Tablet
1,000 mcg PO DAILY
magnesium oxide 400 mg (241.3 mg magnesium) Tablet
400 mg PO DAILY
docusate sodium [Colace] 100 mg Capsule
100 mg PO DAILY
atorvastatin 40 mg Tablet
40 mg PO DAILY
levothyroxine 150 mcg Tablet
150 mcg PO DAILY
calcium carbonate 500 mg calcium (1,250 mg) Tablet,Chewable
500 mg PO TID
cholecalciferol (vitamin D3) [Vitamin D3] 25 mcg (1,000 unit) Tablet
25 mcg PO DAILY
Dialyvite 800 800 mcg Tablet,Chewable
1 tab PO DAILY
clopidogrel 75 mg Tablet
75 mg PO DAILY 30 Days Qty: 30 0RF
Eliquis 5 mg tablet
2.5 mg PO BID
Patient Comments:
08/20/24-patient has his mom old bottles and there 2.5mg and he has not been taking enough to make dose.
pantoprazole 40 mg Tablet,Delayed Release (Dr/Ec)
40 mg PO DAILY Qty: 30 0RF
acetaminophen [Tylenol Extra Strength] 500 mg Tablet
1,000 mg PO Q6HPRN PRN (Reason: mild pain)
midodrine 5 mg tablet
5 mg PO TID PRN (Reason: sbp <100) Qty: 30 0RF
Referrals:
Iliana Hoang CRNP [Family Provider] -
Interventions
Interventions:
*Risk Screen - Suicide Last Done: 10/28/24 19:33
*General Assessment Last Done: 10/28/24 19:33
*Neglect/Abuse Screening Last Done: 10/28/24 19:33
*ED COVID-19 Vaccine History Last Done: 10/28/24 19:33
ED- Cardiac Assessment Last Done: 10/28/24 19:36
ED- Neurological Assessment Last Done: 10/28/24 19:36
Discharge Date and Time
Print Language: NAMIBIAN
[2024-10-28 22:00] VITALS: BP 153/57
[2024-10-28 23:00] VITALS: BP 103/51
[2024-10-28 23:14] VITALS: BP 110/59; BP 135/54; BP 83/50; PULSE 75; PULSE 76; PULSE 84
[2024-10-28 23:30] VITALS: BP 130/52
[2024-10-29] VITALS (29 sets, daily range): BP systolic 91–155; BP diastolic 43–73; PULSE 71–82; O2SAT 99; BMI 22.3; BMI 22.5
--- NOTE | 2024-10-29 01:28 | HPS.HSE ---
Family Physician
-
Family Physician: LUZ MARIA Wolfe
Chief Complaint
-
Syncope / Weakness
History of Present Illness
Patient is a 79y M with PMH significant for ASCVD, A-Fib and ESRD on PD who presents to ED for evaluation after syncope / fall at home. Patient has had multiple recent visits / admissions for weakness, falls and syncope. He has been noted to
have recurrent orthostatic hypotension and his hypertensive medications have all been discontinued. Patient had a fall Friday into Friday and wedged himself against the toilet. This resulted in soreness in the R ribs for which he was seen at
ED. No fractures were noted. Patient notes that he had another fall earlier today. No head injury or other significant trauma. Patient states that his daughter was trying to help him up from the toilet when he became lightheaded and passed
out. She was able to lower him down without injury. He came to moments later and had an episode of N/V. He presented to the ED via EMS for further evaluation. At present he continues to feel somewhat nauseated - but overall improved from initial
arrival.
Patient also notes bright red blood in his stool - which he states is not terribly unusual and which he attributes to hemorrhoids.
Medical History
Past Medical History
Past Medical History: Reports Other
Additional Past Medical History:
Left Occipital Stroke
Severe Left Carotid Stenosis
Coronary Artery Disease s/p CABG
Paroxysmal Atrial Fibrillation
Heart Failure with Recovered Ejection Fraction
ESRD on Peritoneal Dialysis
Essential Hypertension
Hyperlipidemia
Hypothyroidism
Anemia of Chronic Kidney Disease
Past Surgical History: Reports Other
Additional Past Surgical History:
CABG
PD Catheter Placement
Left TCAR (08/11/24)
Social History
Tobacco: Former Smoker (Quit 5 years ago. > 40 pack years total use.)
Alcohol: None
Family History
Family History: Not pertinent
Allergies / Home Medications
Allergies reflects when Allergies were last updated in [facility].
Home Medications with original date entered in [facility]
Allergy/Medication List:
Allergies
Allergy/AdvReac Type Severity Reaction Status Date / Time
No Known Allergies Allergy Verified 10/28/24 19:28
Home Medications
amiodarone 200 mg tablet 200 mg PO DAILY Arrhythmia 07/28/24
atorvastatin 40 mg tablet 40 mg PO DAILY High Cholesterol 07/28/24
calcium carbonate 500 mg PO TID Gastrointestinal Issue 07/28/24
cyanocobalamin (vitamin B-12) 1,000 mcg tablet 1,000 mcg PO DAILY Supplement 07/28/24
docusate sodium 100 mg capsule (Colace) 100 mg PO DAILYPRN PRN constipation 07/28/24
levothyroxine 150 mcg tablet 150 mcg PO DAILY Thyroid 07/28/24
magnesium oxide 400 mg (241.3 mg magnesium) tablet 400 mg PO DAILY Supplement 07/28/24
vitamin B complex-vitamin C-folic acid 800 mcg chewable tablet (Dialyvite 800) 1 tab PO DAILY Supplement 07/28/24
apixaban 5 mg tablet (Eliquis) 2.5 mg PO BID Blood Clot Prevention/Tx 08/11/24
pantoprazole 40 mg tablet,delayed release 40 mg PO DAILY #30 tabs 08/13/24
acetaminophen 500 mg tablet (Tylenol Extra Strength) 1,000 mg PO Q6HPRN PRN mild pain 08/20/24
aspirin 81 mg chewable tablet 81 mg PO DAILY 10/28/24
Review of Systems
-
History Source: Patient
A 12 point ROS was completed and negative except as noted: Yes
Constitutional: Reports Fatigue; Denies Fever or Chills
EENT: Denies Sore Throat
Respiratory: Denies Cough or Trouble Breathing
Cardiac: Reports Syncope and Other (Lightheaded); Denies Chest Pain or Palpitations
Abdomen/GI: Reports Nausea, Vomiting and Bloody Stools; Denies Abdominal Pain, Diarrhea, Constipated or Black Stools
Musculoskeletal: Denies Joint Pain or Edema
Neurological: Reports Weakness; Denies Dizzy or Headache
Psych: Denies Depression or Anxiety
Physical Exam
Vital Signs
Vital Signs
Temp Pulse Resp BP Pulse Ox
97.3 F 74 16 127/53 99
10/28/24 19:28 10/29/24 01:15 10/29/24 01:15 10/29/24 01:00 10/29/24 01:15
Physical Exam
General: Other (79y M in no acute distress. Mildly pale appearing.)
HEENT: Moist mucous membranes and PERRLA
Respiratory: Other (Decreased at bases - otherwise clear.)
Cardiac: S1/S2 and Regular Rhythm; No Murmur
GI: Other (Softly distended. Not tender. No rebound / guarding. PD catheter in place.)
Musculoskeletal: No Clubbing, No Cyanosis and No Edema
Neuro: AO x 3
Laboratory Results
-
10/28/24 19:39
10/28/24 19:39
Laboratory Results
Total Bilirubin 0.3 mg/dl (0.2-1.3) 10/28/24 19:39
AST 18 U/L (17-59) 10/28/24 19:39
ALT 16 U/L (0-50) 10/28/24 19:39
Alkaline Phosphatase 85 U/L (38-126) 10/28/24 19:39
Impression/Plan
-
A/P: Patient is a 79y M with PMH significant for ASCVD, ESRD on PD and A-Fib who presents to ED complaining of syncope / collapse at home.
Recurrent Syncope
Orthostatic Hypotension
- Admit for further evaluation and treatment.
- Patient again noted to have positive orthostatic signs with supine BP = 135/54 and standing BP = 83/50.
- Now off of all antihypertensive medications following prior hospitalizations.
- He cannot tell me his UF values from his PD sessions.
- IVFs overnight and follow orthostatic signs / clinical symptoms.
- PT / OT evaluations.
- Address potentially contributing issues as noted below.
Chronic Anemia
GI Bleeding
- Likely anemia of CKD and current Hgb is at / near known baseline.
- Patient does report fairly regular BRBPR however.
- Dried blood appreciated on rectal exam done in the ED.
- Heme test stools. BID PPI for now.
- GI evaluation for additional recommendations.
- Hold Eliquis acutely.
- Follow H&H for any changes.
ESRD on PD
- Overnight PD at home with last completed cycle Friday evening.
- Nephrology evaluation for treatments during his hospital stay.
- ? adjustments to PD regimen / UF given recurrent orthostasis / apparent hypovolemia?
ASCVD
- Stable. No chest pain / dyspnea / etc.
- Continue ASA uninterrupted given carotid stent (08/2024).
Paroxysmal Atrial Fibrillation
Prolonged QT
- Stable. Continue amiodarone and monitor on telemetry.
- Avoid other QT prolonging medications.
- Hold Eliquis acutely as noted above.
Benign Hypertension
- All BP medications have been discontinued during prior hospitalizations.
- Follow orthostatic signs and consider initiation of midodrine if needed to avoid symptomatic orthostatic hypotension.
Hypothyroidism
- Stable. Continue T4 replacement.
DVT Prophylaxis: SCDs
Code Status: DNR
[2024-10-29] MEDS: NSS IV ×2 (05:50→15:18)
[2024-10-29] MEDS: NSS 1000 IV (05:57)
[2024-10-29 06:13] LABS: Hematocrit 24.3 % (39.0-52.0); Hemoglobin 7.8 g/dL (13.0-18.0); Mean Corp Hgb Conc. 32.1 g/dL (33.0-37.0); Mean Corpuscular Hgb 32.9 pg (27.0-31.0); Mean Corpuscular Volume 102.5 fL (80.0-94.0); Mean Platelet Volume 9.7 fL (7.4-10.4); Platelet Count 262 10^3/uL (130-400); Red Blood Cell Count 2.37 10^6/uL (4.70-6.10); Red Cell Dist. Width 18.3 % (11.5-14.5); White Blood Cell Count 13.6 10^3/uL (4.8-10.8)
[2024-10-29 06:32] LABS: Blood Urea Nitrogen 39 mg/dl (9-20); Calcium 8.4 mg/dl (8.4-10.2); Carbon Dioxide 28 mmol/L (22-30); Chloride 92 mmol/L (98-107); Estimated Creatinine Clearance 5 ml/min; Glucose 95 mg/dl (70-99); Sodium 133 mmol/L (135-145); eGFR 4.53
[2024-10-29 06:38] LABS: Iron 28 ug/dl (49-181)
[2024-10-29 06:47] LABS: Percent Saturation 18 % (20-50); Total Iron Binding Capacity 149 ug/dl (261-462)
[2024-10-29] MEDS: SYNTHROID 150 MCG PO (07:00)
[2024-10-29 07:06] LABS: TSH Reflex To Free T4 0.28 uIU/ml (0.47-4.68)
[2024-10-29 07:24] LABS: Vitamin B12 > 1000 pg/ml (239-931)
[2024-10-29 07:32] LABS: Free T4 2.81 ng/dl (0.78-2.19)
[2024-10-29] MEDS: PROTONIX IV 40 MG IV ×2 (08:35→19:39)
[2024-10-29] MEDS: LOW STRENGTH ASPIRIN 81 MG PO (08:36)
[2024-10-29] MEDS: LIPITOR 40 MG PO (08:36)
[2024-10-29] MEDS: PACERONE 200 MG PO (08:36)
[2024-10-29] MEDS: NSS (PRESERVATIVE FREE) 10 ML IV ×2 (08:37→19:40)
--- NOTE | 2024-10-29 10:08 | CON.GI ---
Addendum entered and electronically signed by Edgard Chery DO 10/29/24 18:32:
I saw and examined the patient.
The TELECOMMUNICATIONS FACILITY EXAMINER's note was reviewed and I agree with the note.
Comment: Mr. Valdes is a 79 y.o male with past medial history as outlined below with known colon polyps (last colonoscopy in December 2023) who presented to the ED with recurrent mechanical falls and orthostasis. GI has been consulted given concern
for small volume rectal bleeding. Patient notes chronic rectal bleeding which is not new for him. Reports his last colonoscopy was in December 2023 which appears to have been performed for surveillance due to concern for an advanced colon polyp (no
records regarding this). Was told that he did not require any further repeat colonoscopies in going forward. Reports chronic rectal bleeding for months to years where he usually has painless, small volume rectal bleeding with wiping. Denies any
large volume hematochezia. Was having brown stools with occasional blood with wiping. No melena or black stools. No recent Eliquis as he was previously holding this given his prior fall on 10/26/2024. Had brown, heme (+ ) stool in the rectal vault in
ED. Declined rectal at bedside for both myself and our TELECOMMUNICATIONS FACILITY EXAMINER. Hgb appears near baseline and without any large volume hematochezia since admission. He continues to decline any endoscopic interventions including a colonoscopy. Etiology likely suspicious
for recurrent hemorrhoidal bleeding, however cannot say for certain as without any prior endoscopic records as his GI care was all performed at [facility]. Given his chronic, small volume bleeding doubt this is related to his orthostasis /
presyncopal symptoms given his overall presentation and Hgb near baseline. Not consistent with diverticular hemorrhage. Has risk factors for ischemia as well, but low suspicion. Differential is broad however given his stable Hgb, without any further
bloody bowel movements and declining any further procedures would continue to manage conservatively as detailed below.
Recommendations:
- Diet as tolerated
- Trend Hgb with serial CBC, transfuse as needed
- Ensure bowel regimen with Miralax 17 grams BiD and senna qhs to keep stools soft
- Hydrocortisone suppositories PRN given suspicion for hemorrhoids
- Anticoagulation remains on hold given recent mechanical falls
- Defer risks/benefits regarding long-term a/c and frequent falls to primary team as patient is at increased risk given prior hx of CVA
- No plans for any flex-sig or colonoscopy at this time given patient preference as declining any procedures
- If large volume hematochezia, HD-instability, or significant drop in Hgb would obtain stat CTA in attempts of localization
- Would obtain prior [facility] GI records in case of rebleeding
- Ultimately, needs close outpatient follow-up at [facility] with his primary [employer]
- Avoidance of all NSAIDs
- Rest of care per primary team
Discussed with primary internal medicine team. GI team will sign-off. Please recontact with any questions or concerns.
Original Note:
Consultation
-
Date/Time Consultation Requested: 10/29/24 0213
Date/Time Consultation Performed: 10/29/24 1000
Requesting Provider: Dr. Fishman
Performing Provider: Dr. Chery/LUZ MARIA Hawkins
Reason for Consultation: rectal bleeding
Medical History
Chief Complaint / HPI
Chief Complaint: rectal bleeding
History of Present Illness:
79-year-old male with past medical history of left occipital stroke with severe left carotid stenosis, CAD, hypertension, hyperlipidemia, hypothyroidism, end-stage renal failure on peritoneal dialysis, anemia of chronic disease, A-fib on Eliquis,
last dose 2 days ago, colon polyp with recent fall on 10/26/2024 while in the bathroom hitting his right rib cage. He was discharged home with Tylenol and lidocaine patch. The patient states last week he had an episode of diarrhea. He states that
he has had issues intermittently with hemorrhoids requiring hemorrhoid surgery approximately 1 to 2 years ago. This was done at [facility]. He also states that approximately 1 year ago he had a polyp removed at [facility] in [place] and
requiring a subsequent repeat colonoscopy with repeat colonoscopy with secondary removal of such polyp. He believes that this was done in December 2023. He was then told that he did not need any further colonoscopies going forward. He does state
that intermittently he will have some bleeding of his hemorrhoids usually with some bright red blood with drops in the toilet as well as with wiping. He does state that he was on the toilet trying to have a bowel movement when he felt dizzy upon
getting up. He felt as if he was going to pass out. His daughter tried to help him to the ground. At that point he presented to the emergency room for further evaluation. The patient had already been off of his Eliquis for 2 days at that point
since he had had some mild rectal bleeding prior to that and also a fall on 10/26/2024. The patient did allow rectal exam by ER provider. This showed dried blood in the rectal area with no obvious thrombosed or bleeding hemorrhoids. There was
brown stool in the rectal vault. The patient currently declines rectal exam for me. He denies any fevers, chills, nausea, vomiting, melena, current bleeding. No bleeding or bowel movement since arrival. No abdominal pain, dysphagia or dyne
aphasia. No early satiety or unintentional weight loss.
Past Medical History
Past Medical History: Other (Left occipital stroke with severe left carotid stenosis, CAD, hypertension, hyperlipidemia, hypothyroidism, end-stage renal failure on peritoneal dialysis, anemia of chronic disease, A-fib on Eliquis last dose 2 days
ago. Colon polyp)
Past Surgical History: Other (Dialysis catheter, hemorrhoidectomy, colonoscopy with polypectomy x 2 (2023), left carotid angioplasty, CABG)
Social History
Tobacco: Non-Smoker
Alcohol: None
Drug: None
Family History
Family History: Other (2 paternal uncles with colon cancer, 1 paternal aunt with gastric cancer.)
Allergies / Home Medications
Allergy/AdvReac Type Severity Reaction Status Date / Time
No Known Allergies Allergy Verified 10/28/24 19:28
�Medication �Instructions �Recorded
amiodarone 200 mg tablet 200 mg PO DAILY Arrhythmia 07/28/24
atorvastatin 40 mg tablet 40 mg PO DAILY High Cholesterol 07/28/24
calcium carbonate 500 mg PO TID Gastrointestinal 07/28/24
Issue
cyanocobalamin (vitamin B-12) 1,000 mcg PO DAILY Supplement 07/28/24
1,000 mcg tablet
docusate sodium 100 mg capsule 100 mg PO DAILYPRN PRN constipation 07/28/24
(Colace)
levothyroxine 150 mcg tablet 150 mcg PO DAILY Thyroid 07/28/24
magnesium oxide 400 mg (241.3 mg 400 mg PO DAILY Supplement 07/28/24
magnesium) tablet
vitamin B complex-vitamin C-folic 1 tab PO DAILY Supplement 07/28/24
acid 800 mcg chewable tablet
(Dialyvite 800)
apixaban 5 mg tablet (Eliquis) 2.5 mg PO BID Blood Clot 08/11/24
Prevention/Tx
pantoprazole 40 mg tablet,delayed 40 mg PO DAILY #30 tabs 08/13/24
release
acetaminophen 500 mg tablet 1,000 mg PO Q6HPRN PRN mild pain 08/20/24
(Tylenol Extra Strength)
aspirin 81 mg chewable tablet 81 mg PO DAILY 10/28/24
Review of Systems
-
All other systems: A 12 pt ROS was Negative except as stated above in HPI
Vital Signs
Temp Pulse Resp BP Pulse Ox
97.3 F 67 18 130/59 97
10/28/24 19:28 10/29/24 10:00 10/29/24 10:00 10/29/24 10:00 10/29/24 09:00
Physical Exam
Exam
General: No Apparent Distress
HEENT: Anicteric
Respiratory: Clear (Anterior)
Cardiac: Regular Rhythm
GI: Soft, Non Distended, Normal Bowel Sounds and Other (Mild tenderness on the right rib cage)
Rectal: Other (Patient declined rectal exam for me. Per ER records there was dried blood in the rectal area with no obvious thrombosed or bleeding hemorrhoids. Brown stool.)
Skin: Warm and Dry
Neuro: AO x 3
Psych: Calm
Results
WBC 13.6 10^3/uL (4.8-10.8) H 10/29/24 05:54
Hgb 7.8 g/dL (13.0-18.0) L 10/29/24 05:54
Hct 24.3 % (39.0-52.0) L 10/29/24 05:54
MCV 102.5 fL (80.0-94.0) H 10/29/24 05:54
Plt Count 262 10^3/uL (130-400) 10/29/24 05:54
Absolute Neuts (auto) 7.3 10^3/uL (1.4-6.5) H 10/28/24 19:39
Sodium 133 mmol/L (135-145) L 10/29/24 05:54
Potassium 4.0 mmol/L (3.5-5.1) 10/29/24 05:54
Chloride 92 mmol/L (98-107) L 10/29/24 05:54
Carbon Dioxide 28 mmol/L (22-30) 10/29/24 05:54
BUN 39 mg/dl (9-20) H 10/29/24 05:54
Creatinine 10.6 mg/dL (0.7-1.3) H* 10/29/24 05:54
Calcium 8.4 mg/dl (8.4-10.2) 10/29/24 05:54
Total Bilirubin 0.3 mg/dl (0.2-1.3) 10/28/24 19:39
AST 18 U/L (17-59) 10/28/24 19:39
ALT 16 U/L (0-50) 10/28/24 19:39
Alkaline Phosphatase 85 U/L (38-126) 10/28/24 19:39
Diagnostic Image Results:
Chest x-ray 10/28/2024:
IMPRESSION:
1. Normal heart size without evidence for acute pulmonary edema.
2. Severe calcific atherosclerotic plaque in the thoracic aorta.
3. Previous CABG surgery.
4. Mildly decreased bilateral lung volumes.
5. Left carotid artery stent in place.
Prior GI Procedures:
EGD:
Colonoscopy: Patient states he had 2 colonoscopies within the last year at [facility]. First one was in October with polyp removal. Second one was in December 2023 with repeat removal of polyp. Records unavailable to us
Assessment / Plan
-
79-year-old male with past medical history of left occipital stroke with severe left carotid stenosis, CAD, hypertension, hyperlipidemia, hypothyroidism, end-stage renal failure on peritoneal dialysis, anemia of chronic disease, A-fib on Eliquis,
last dose 2 days ago, colon polyp with recent fall on 10/26/2024 while in the bathroom hitting his right rib cage. Anticoagulation was stopped at that time. Prior to that he was having intermittent episodes of bright red blood per rectum. Patient
states that he felt this was secondary to his hemorrhoids that he has had on and off periodically. Prior to that he had 2 days of diarrhea. He did have some mild rectal bleeding associated with that as well. Yesterday the patient was on the
toilet trying to have a bowel movement. He felt nausea with dizziness. He had near syncope. There was some blood in the toilet. He was brought to the emergency room further evaluation. He has already been off Eliquis for 2 days. Patient
initially declined rectal exam however later did allow emergency room physician to perform rectal exam. There was brown stool. There was old blood dried in rectal area. No obvious external hemorrhoids with bleeding. No further episodes of
bleeding while in the emergency room. Patient tolerating clear liquid diet. No abdominal pain. Patient's last colonoscopy was less than 1 year ago. At that time he had 2 colonoscopies 1 in October 2019 for the second in December 2023 for removal of
polyp done at [facility] in [place]. Patient states that the physician states he required no further colonoscopies. Records unavailable to us. Patient has prior history of hemorrhoidectomy in the past with bleeding hemorrhoids subsequent to
this. At the present time the patient denies any fevers, chills, nausea, vomiting, melena, dysphagia or odynophagia. No early satiety or unintentional weight loss. WBC 13.6, hemoglobin 7.8 down from 8.7, hematocrit 24.3, platelets 262. He did
receive 1 L of normal saline during this time. Patient baseline hemoglobin in the mid 8-9 range.
Impression:
Syncope
Fall
Rectal bleeding
--> Patient declining repeat rectal exam at present time. States that he has a history of hemorrhoids with prior hemorrhoidectomy surgery in the past.
--> Patient also states that he was having difficulty trying to have a bowel movement at that time.
Plan:
-Recommend keeping bowel movements soft, avoid straining
-Patient currently off anticoagulation at the present time.
-Trend hemoglobin
-Okay for clear liquid diet, no reds, advance as tolerated
-Patient does not wish to have any procedures
-Okay to continue aspirin
-Could consider hydrocortisone suppositories for hemorrhoids
-If with active bleeding would consider tagged nuclear med bleeding scan, although doubt patient would have large volume as this has not been reported.
-
-
Thank you for consultation and allowing me to participate in the patient's care. Please call the microeconomics professor GI physician during the after hours with any questions or concerns.
--- NOTE | 2024-10-29 10:24 | W.CON.NEPH ---
Consultation
-
Date/Time Consultation Requested: October 29, 2024 7 AM
Date/Time Consultation Performed: October 29, 2024 10 AM
Requesting Provider: Dr. Fishman
Performing Provider: Dr. Almaguer
Reason for Consultation: ESRD
Medical History
-
Chief Complaint: ESRD/PD
History of Present Illness:
79-year-old male with CAD status post CABG, paroxysmal atrial fibrillation(maintained on amiodarone and anticoagulated with Eliquis), HFrEF, ESRD on peritoneal dialysis, hypertension on a multidrug regimen, hypercholesteremia, hypothyroidism. He
was in the emergency room a few days ago after a fall. X-ray did not show any rib injuries and he was ultimately discharged to home. He returns because he suffered another fall presumed to be due to loss of consciousness. He then reports some
nausea and vomiting. As well as bright red blood in his stool. We are asked to assist with management of his ESR.
Past Medical History
End-stage renal disease on peritoneal dialysis
Coronary artery disease with history of CABG
Paroxysmal atrial fibrillation on chronic anticoagulation
HFpEF
Hypothyroidism
Hyperphosphatemia
Anemia
Dyslipidemia
Left occipital stroke with severe left carotid artery stenosis
Social History
Tobacco: Non-Smoker
Alcohol: None
Drug: None
Family History
no ckd
Allergies / Home Medications
Allergy/AdvReac Type Severity Reaction Status Date / Time
No Known Allergies Allergy Verified 10/28/24 19:28
�Medication �Instructions �Recorded �Confirmed �Type
amiodarone 200 mg tablet 200 mg PO DAILY Arrhythmia 07/28/24 10/28/24 History
atorvastatin 40 mg tablet 40 mg PO DAILY High Cholesterol 07/28/24 10/28/24 History
calcium carbonate 500 mg PO TID Gastrointestinal 07/28/24 10/28/24 History
Issue
cyanocobalamin (vitamin B-12) 1,000 mcg PO DAILY Supplement 07/28/24 10/28/24 History
1,000 mcg tablet
docusate sodium 100 mg capsule 100 mg PO DAILYPRN PRN constipation 07/28/24 10/28/24 History
(Colace)
levothyroxine 150 mcg tablet 150 mcg PO DAILY Thyroid 07/28/24 10/28/24 History
magnesium oxide 400 mg (241.3 mg 400 mg PO DAILY Supplement 07/28/24 10/28/24 History
magnesium) tablet
vitamin B complex-vitamin C-folic 1 tab PO DAILY Supplement 07/28/24 10/28/24 History
acid 800 mcg chewable tablet
(Dialyvite 800)
apixaban 5 mg tablet (Eliquis) 2.5 mg PO BID Blood Clot 08/11/24 10/28/24 History
Prevention/Tx
pantoprazole 40 mg tablet,delayed 40 mg PO DAILY #30 tabs 08/13/24 10/28/24 Rx
release
acetaminophen 500 mg tablet 1,000 mg PO Q6HPRN PRN mild pain 08/20/24 10/28/24 History
(Tylenol Extra Strength)
aspirin 81 mg chewable tablet 81 mg PO DAILY 10/28/24 10/28/24 History
Review of Systems
-
Currently no nausea, no lightheadedness
All other systems: Negative unless noted
Physical Exam
Vital Signs
Vital Signs
Temp Pulse Resp BP Pulse Ox
97.3 F 67 18 130/59 97
10/28/24 19:28 10/29/24 10:00 10/29/24 10:00 10/29/24 10:00 10/29/24 09:00
Lab Results
WBC 13.6 10^3/uL (4.8-10.8) H 10/29/24 05:54
RBC 2.37 10^6/uL (4.70-6.10) L 10/29/24 05:54
Hgb 7.8 g/dL (13.0-18.0) L 10/29/24 05:54
Hct 24.3 % (39.0-52.0) L 10/29/24 05:54
Plt Count 262 10^3/uL (130-400) 10/29/24 05:54
Sodium 133 mmol/L (135-145) L 10/29/24 05:54
Potassium 4.0 mmol/L (3.5-5.1) 10/29/24 05:54
Chloride 92 mmol/L (98-107) L 10/29/24 05:54
Carbon Dioxide 28 mmol/L (22-30) 10/29/24 05:54
BUN 39 mg/dl (9-20) H 10/29/24 05:54
Creatinine 10.6 mg/dL (0.7-1.3) H* 10/29/24 05:54
eGFR 4.53 10/29/24 05:54
Glucose 95 mg/dl (70-99) 10/29/24 05:54
Calcium 8.4 mg/dl (8.4-10.2) 10/29/24 05:54
Albumin 3.5 g/dl (3.5-5.0) 10/28/24 19:39
Physical Exam
Patient is awake alert oriented and in no distress. Mood and affect were pleasant, insight and judgment were good. Pupils are equal round and reactive to light, extraocular movements are intact, sclera were anicteric. Hearing was normal, ears and
nose are intact. Oropharynx was clear. Neck was supple with trachea midline and no thyromegaly. Heart was regular rate and rhythm without rubs. Lower extremities without edema. Lungs were clear to auscultation bilaterally and with normal
excursion. Abdomen was soft, nontender, with normal active bowel sounds, and no hepatosplenomegaly. Skin was without rash and with normal turgor.
Data Reviewed
-
Radiology: Image Personally Visualized and interpreted (Chest x-ray on 10/28/2024 by reading shows no acute disease)
Medical Tests (Nuc Med, Echo etc): Image Personally Visualized and interpreted (EKG on 10/28/2024 by my reading shows sinus rhythm left axis deviation inferior Q prolonged QT)
Labs: Labs Reviewed by me
Old Records: Reviewed
Assessment/Plan
-
Impression:
Syncope
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
Left carotid stenosis
End-stage renal disease on peritoneal dialysis
Hypertension
Paroxysmal atrial fibrillation
Hyperphosphatemia
Anemia
History of CABG
h/o bilat CEA at [facility]
TCAR 08/11/2024
Plan:
hemodynamically stable
cont PD 1.5% Q4h exchanges, 2 L each exchange
GI evaluation
Cardiology evaluation
--- NOTE | 2024-10-29 15:24 | CM ---
Patient seen at bedside, Patient states he has moved to a town home where he lives with his daughter and he is on the ground floor with daughter on the second floor. Patient PCP is Dr. Hoang and he is changing his pharmacy to the [facility] in [employer]
[place]. Patient has hired nurses 5 days week privately per patient daughter and he has had [facility] in the past. Patient thought he was starting with [facility] but daughter indicated no. Patient asked Cm to call daughter as she was living with him at
this time. Patient also has PD with [facility]. CM will continue to follow for discharge planning needs.
Plan; home with VN will need referral to [facility] care if appropriate vs SNF pending PT/OT assessment
[2024-10-29] MEDS: DILAUDID 0.5 MG IV (18:16)
[2024-10-29] MEDS: MIRALAX 17 GRAMS PO (19:39)
[2024-10-29] MEDS: SENOKOT-S 1 TABLET PO (19:40)
[2024-10-29] MEDS: BENADRYL 12.5 MG IV (21:09)
--- NOTE | 2024-10-29 22:23 | PTCARENOTE ---
Received pt from daniel RN. Pt AAOx3, able to make needs known. Slow speech. NSR w/ 1st degree AV block and prolonged QT on the monitor. Weak pedal pulses. Lungs clear on RA. Clear liquid diet, poor appetite. Continent of bowel/bladder. Oliguric
on PD. Round belly, hypo bowel sounds. Last bm 10/28. NS@80ml/hr through [facility]. Pt c/o nausea and vomiting after dose of IV dilaudid given for rib pain on previous shift. ER[employer]ION CONTROL SPECIALIST notified via tiger text. Pt unable to get zofran or compazine d/t prolonged
QT. 12.5mg benadryl IV given. No reports of n/v after. Call molina and belongings within reach. Able to make needs known.
[2024-10-30] VITALS (12 sets, daily range): BP systolic 102–150; BP diastolic 41–64; BMI 22.7
[2024-10-30] MEDS: TUMS CHEWABLE TABLET 200 MG PO ×2 (03:15→20:31)
[2024-10-30 04:38] LABS: Hematocrit 21.7 % (39.0-52.0); Hemoglobin 7.1 g/dL (13.0-18.0); Mean Corp Hgb Conc. 32.7 g/dL (33.0-37.0); Mean Corpuscular Hgb 32.7 pg (27.0-31.0); Platelet Count 259 10^3/uL (130-400); Red Blood Cell Count 2.17 10^6/uL (4.70-6.10); Red Cell Dist. Width 18.1 % (11.5-14.5); White Blood Cell Count 10.1 10^3/uL (4.8-10.8)
[2024-10-30 05:14] LABS: Blood Urea Nitrogen 38 mg/dl (9-20); Calcium 8.3 mg/dl (8.4-10.2); Carbon Dioxide 28 mmol/L (22-30); Chloride 94 mmol/L (98-107); Estimated Creatinine Clearance 5 ml/min; Glucose 109 mg/dl (70-99); Potassium 3.8 mmol/L (3.5-5.1); Sodium 132 mmol/L (135-145); eGFR 4.69
[2024-10-30] MEDS: SYNTHROID 150 MCG PO (06:02)
[2024-10-30] MEDS: PACERONE 200 MG PO (08:16)
[2024-10-30] MEDS: NSS 1000 IV (08:16)
[2024-10-30] MEDS: PROTONIX IV 40 MG IV ×2 (08:16→19:43)
[2024-10-30] MEDS: NSS (PRESERVATIVE FREE) 10 ML IV ×2 (08:16→19:43)
[2024-10-30] MEDS: SENOKOT-S 1 TABLET PO ×2 (08:16→19:43)
[2024-10-30] MEDS: LIPITOR 40 MG PO (08:17)
[2024-10-30] MEDS: LOW STRENGTH ASPIRIN 81 MG PO (08:18)
[2024-10-30] MEDS: MIRALAX PO (08:18)
--- NOTE | 2024-10-30 08:54 | W.PN.HOSP.TC ---
Today's Communication/Plan
-
Follow H&H-repeat in afternoon. Transfuse if less than 7. Blood consent form in.
Consult colorectal surgery.
Continue to hold Eliquis.
PD per renal.
Assessment / Plan
Assessment / Plan
A/P: Patient is a 79y M with PMH significant for ASCVD, ESRD on PD and A-Fib who presents to ED complaining of syncope / collapse at home.
Recurrent Syncope
Orthostatic Hypotension
- Persistent orthostatic drop in blood pressure noted. Not sure if this is dysautonomia or secondary to blood loss and anemia. No arrhythmia noted on the court monitor.
- TSH does not support hypothyroidism. Check serum cortisol.
- Patient again noted to have positive orthostatic signs with supine BP = 135/54 and standing BP = 83/50.
- Now off of all antihypertensive medications following prior hospitalizations.
- Will check with renal if there are any fluid related issues from dialysis
- If persistent symptomatic orthostatic hypotension while put him on midodrine.
- PT / OT evaluations.
Chronic Anemia
GI Bleeding-bright red rectal bleeding
History of hemorrhoidal bleeding and anemia
- Likely anemia of CKD and possibly hemorrhoidal related bleeding
- GI input noted. Patient declining endoscopic eval as he says he had a colonoscopy a year ago.
-With concern for hemorrhoidal bleeding will ask colorectal surgery if there is any role for hemorrhoidectomy
- Hold Eliquis acutely.
- Slow drop in H&H noted. Continue to monitor and transfuse if the blood count is less than 7 or symptomatic which is not currently. Blood consent in the chart
ESRD on PD
- Overnight PD at home with last completed cycle Friday evening.
- Nephrology evaluation for treatments during his hospital stay.
ASCVD
- Stable. No chest pain / dyspnea / etc.
- Continue ASA uninterrupted given carotid stent (08/2024).
Paroxysmal Atrial Fibrillation
Prolonged QT
- Stable. Continue amiodarone and monitor on telemetry.
- Avoid other QT prolonging medications.
- Hold Eliquis acutely as noted above.
Benign Hypertension
- All BP medications have been discontinued during prior hospitalizations.
- Follow orthostatic signs and consider initiation of midodrine if needed to avoid symptomatic orthostatic hypotension.
Hypothyroidism
- Stable. Continue T4 replacement.
DVT Prophylaxis: SCDs
Code Status: DNR
DW GI and CRS
Discussed with RN
Total time spent on today's encounter was 52 minutes which included time spent in counseling the patient/family regarding diagnosis and treatment plan as listed above, goals of care, and symptom management. Case was discussed with nursing staff,
specialists, and care coordinators/case management. All labs and imaging personally reviewed by me. Remainder the time spent in detailed review of previous records, lab data, imaging, and other medical provider documentation.
Anticipated Discharge: > 48 hours
Subjective/Interval History
-
Date of Service: October 30, 2024
No bowel movement since yesterday. No rectal bleeding. No nausea vomiting. Tolerating diet.
Patient states that he has been bright red blood with bowel movements. He says lately he has been constipated and that may be pressing on the hemorrhoids.
He remembers having significant hemorrhage from hemorrhoids 2 years ago needing inpatient admission, blood transfusion and hemorrhoidectomy. Post hemorrhoidectomy he had a colonoscopy which noted polyps 1 of which was large and he needed a relook
colonoscopy after the large polyp was removed. He tells me that he was told that he may not need another colonoscopy so declining any further endoscopic eval. He is agreeable for hemorrhoidal bleeding evaluation.
Lately his blood pressure has been low so all his medication has been discontinued and his blood pressure was noted to be dropping especially when standing. This is all within the last 2 weeks.
He denies any chest pain or shortness of breath.
No fever or chills.
Objective Data
-
Labs:
Laboratory Results
10/30/24
03:46
WBC 10.1
Hgb 7.1 L
Hct 21.7 L
Plt Count 259
Sodium 132 L
Potassium 3.8
Chloride 94 L
Carbon Dioxide 28
BUN 38 H
Creatinine 10.3 H*
Glucose 109 H
Calcium 8.3 L
Vital Signs:
Vital Signs
Temp Pulse Resp BP Pulse Ox
97.6 F 59 11 149/48 84
10/30/24 04:59 10/30/24 08:16 10/29/24 14:00 10/30/24 08:16 10/30/24 06:00
I&O
10/29/24 10/30/24 10/31/24
06:59 06:59 06:59
Intake Total 1530 / 1530
Output Total 2800 / 2800
Balance -1270 / -1270
Review of Systems
-
Constitutional: Denies Fever
EENT: Denies Sore Throat
Respiratory: Denies Cough
Abdomen/GI: Denies Abdominal Pain
Neuro: Denies Headache
Physical Exam
-
General: Comfortable
Respiratory: Clear to Auscultation and Non Labored Respirations; Negative Accessory Resp Muscle Use
Cardiac: Regular Rhythm and S1/S2; Negative Murmur
GI: Soft and Nontender
Neuro: AO x 3
Psych: Calm; Negative Confused
Data Reviewed
-
Labs: Labs Reviewed by me
--- NOTE | 2024-10-30 09:59 | CM ---
Met with patient
States performs peritoneal dialysis at home.
Hgb 7.1 - repeat pending
PT rec SNF vs. Home PT - [facility]
PLAN: SNF vs. Home PT
--- NOTE | 2024-10-30 11:25 | W.PN.NEPH.PH ---
Today's Communication / Plan
-
PD ordered
Assessment/Plan
-
Impression:
Syncope
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
Left carotid stenosis
End-stage renal disease on peritoneal dialysis
Hypertension
Paroxysmal atrial fibrillation
Hyperphosphatemia
Anemia
History of CABG
h/o bilat CEA at [place]
TCAR 08/11/2024
Plan:
hemodynamically stable
cont PD 1.5% Q4h exchanges, 2 L each exchange
For colorectal surgery evaluation
-
-
Date of Service: October 30, 2024
CC / HPI / ROS
-
Chief Complaint:
ESRD
History of Present Illness:
PD in progress, no issues
Sodium low 132 stable
BP stable
Review of Systems:
No chest pain or shortness of breath
Labs
-
Labs:
Sodium 132 mmol/L (135-145) L 10/30/24 03:46
Potassium 3.8 mmol/L (3.5-5.1) 10/30/24 03:46
Chloride 94 mmol/L (98-107) L 10/30/24 03:46
Carbon Dioxide 28 mmol/L (22-30) 10/30/24 03:46
BUN 38 mg/dl (9-20) H 10/30/24 03:46
Creatinine 10.3 mg/dL (0.7-1.3) H* 10/30/24 03:46
eGFR 4.69 10/30/24 03:46
Glucose 109 mg/dl (70-99) H 10/30/24 03:46
Calcium 8.3 mg/dl (8.4-10.2) L 10/30/24 03:46
Albumin 3.5 g/dl (3.5-5.0) 10/28/24 19:39
Physical Exam
-
Vital Signs:
Vital Signs
Temp Pulse Resp BP Pulse Ox
97.6 F 59 11 149/48 84
10/30/24 07:30 10/30/24 08:16 10/29/24 14:00 10/30/24 08:16 10/30/24 06:00
Cardiovascular:: Regular rate and rhythm
Respiratory:: Bilateral: CTA
Lung Excursion:: Normal
Abdomen:: Nontender and Soft
Bowel Sounds:: Normal
Extremity Edema:: None: Bilateral:
[2024-10-30] MEDS: DILAUDID 0.5 MG IV (15:03)
[2024-10-30] MEDS: MIRALAX 17 GRAMS PO (19:43)
[2024-10-30 20:06] LABS: Hematocrit 21.9 % (39.0-52.0); Hemoglobin 7.1 g/dL (13.0-18.0); Mean Corp Hgb Conc. 32.4 g/dL (33.0-37.0); Mean Corpuscular Hgb 33.5 pg (27.0-31.0); Mean Corpuscular Volume 103.3 fL (80.0-94.0); Mean Platelet Volume 9.3 fL (7.4-10.4); Platelet Count 221 10^3/uL (130-400); Red Blood Cell Count 2.12 10^6/uL (4.70-6.10); Red Cell Dist. Width 18.8 % (11.5-14.5); White Blood Cell Count 10.2 10^3/uL (4.8-10.8)
[2024-10-31] VITALS (24 sets, daily range): BP systolic 131–176; BP diastolic 45–80; PULSE 61–71; O2SAT 98; BMI 24.0
--- NOTE | 2024-10-31 00:02 | PTCARENOTE ---
assumed care of patient. afternoon labs never drawn, drawn for nightshift. hgb 7.1. pt still with some nausea//indigestion. asking for tums. notified covering GEOLOGICAL SURVEY FIELD ASSISTANT, tums x1 ordered and were effective per patient. pt using bedpan at this time to have
a BM without success. PD done q4 per order, no issues noted. pt is oliguric. IV fluids discontinued per order. care ongoing.
[2024-10-31] MEDS: SYNTHROID 150 MCG PO (03:00)
[2024-10-31 03:36] LABS: Hematocrit 20.9 % (39.0-52.0); Hemoglobin 6.9 g/dL (13.0-18.0); Mean Corpuscular Hgb 32.5 pg (27.0-31.0); Mean Corpuscular Volume 98.6 fL (80.0-94.0); Mean Platelet Volume 9.4 fL (7.4-10.4); Platelet Count 243 10^3/uL (130-400); Red Blood Cell Count 2.12 10^6/uL (4.70-6.10); Red Cell Dist. Width 18.4 % (11.5-14.5); White Blood Cell Count 8.3 10^3/uL (4.8-10.8)
[2024-10-31 04:11] LABS: Blood Urea Nitrogen 32 mg/dl (9-20); Calcium 7.7 mg/dl (8.4-10.2); Carbon Dioxide 27 mmol/L (22-30); Chloride 96 mmol/L (98-107); Estimated Creatinine Clearance 6 ml/min; Glucose 96 mg/dl (70-99); Potassium 3.3 mmol/L (3.5-5.1); Sodium 134 mmol/L (135-145); eGFR 5.82
[2024-10-31 04:25] LABS: Cortisol, Random 12.8 ug/dl
--- NOTE | 2024-10-31 04:27 | W.PN.UPDATE ---
Update Note
Progress Note Update
hgb ., Type and screen ordered. Consent in place. will order 1 u PRBC. stable VS, asymptomatic.
--- NOTE | 2024-10-31 04:52 | PTCARENOTE ---
pt h/h came back this AM [phone]. notified covering CHANGE DIRECTOR, type and screen drawn STAT, 1 unit of PRBC's ordered.
--- NOTE | 2024-10-31 07:37 | W.PN.HOSP.TC ---
Today's Communication/Plan
-
Transfuse PRBC
Check for orthostatic hypotension posttransfusion and if dropping start on midodrine
Await colorectal surgery eval
Follow H&H
Assessment / Plan
Assessment / Plan
A/P: Patient is a 79y M with PMH significant for ASCVD, ESRD on PD and A-Fib who presents to ED complaining of syncope / collapse at home.
Recurrent Syncope
Orthostatic Hypotension
-Ongoing orthostatic drop in blood pressure noted. Not sure if this is dysautonomia or secondary to blood loss and anemia. No arrhythmia noted on the hospital monitor. Transfuse PRBC and if still orthostatic start on midodrine. Patient says he
was using midodrine in the past but was discontinued because he was on antihypertensives.
- TSH does not support hypothyroidism. serum cortisol normal.
- Now off of all antihypertensive medications following prior hospitalizations.
Chronic Anemia of CKD
Possible chronic blood loss anemia
GI Bleeding-bright red rectal bleeding
History of hemorrhoidal bleeding and anemia
- Likely anemia of CKD and possibly hemorrhoidal related bleeding
- GI input noted. Patient declining endoscopic eval as he says he had a colonoscopy a year ago.
- With concern for hemorrhoidal bleeding will ask colorectal surgery if there is any role for hemorrhoidectomy
- Hold Eliquis acutely.
- Transfuse 1 unit of PRBC today as H&H dropped to 6.9
ESRD on PD
- Continue with PD
- Nephrology evaluation for treatments during his hospital stay.
ASCVD
- Stable. No chest pain / dyspnea / etc.
- Continue ASA uninterrupted given carotid stent (08/2024).
Paroxysmal Atrial Fibrillation
Prolonged QT
- Stable. Continue amiodarone and monitor on telemetry.
- Avoid other QT prolonging medications.
- Hold Eliquis acutely as noted above.
Benign Hypertension
- All BP medications have been discontinued during prior hospitalizations.
- Follow orthostatic signs and consider initiation of midodrine if needed to avoid symptomatic orthostatic hypotension.
Hypothyroidism
- Stable. Continue T4 replacement.
DVT Prophylaxis: SCDs
Code Status: DNR
Discussed with RN
Total time spent on today's encounter was 52 minutes which included time spent in counseling the patient/family regarding diagnosis and treatment plan as listed above, goals of care, and symptom management. Case was discussed with nursing staff,
specialists, and care coordinators/case management. All labs and imaging personally reviewed by me. Remainder the time spent in detailed review of previous records, lab data, imaging, and other medical provider documentation.
Anticipated Discharge: > 48 hours
Subjective/Interval History
-
Date of Service: October 31, 2024
No bowel movement since yesterday. No rectal bleeding.
Had an orthostatic drop in blood pressure when he was working with PT yesterday.
Objective Data
-
Labs:
Laboratory Results
10/30/24 10/31/24
19:53 03:15
WBC 10.2 8.3
Hgb 7.1 L 6.9 L*
Hct 21.9 L 20.9 L*
Plt Count 221 243
Sodium 134 L
Potassium 3.3 L
Chloride 96 L
Carbon Dioxide 27
BUN 32 H
Creatinine 8.6 H*
Glucose 96
Calcium 7.7 L
Vital Signs:
Vital Signs
Temp Pulse Resp BP Pulse Ox
98.5 F 60 10 151/45 96
10/31/24 06:06 10/31/24 06:06 10/31/24 06:06 10/31/24 06:06 10/31/24 06:06
I&O
10/30/24 10/31/24 11/01/24
06:59 06:59 06:59
Intake Total 1530 / 1530 0 / 0
Output Total 2800 / 2800 525 / 525
Balance -1270 / -1270 -525 / -525
Review of Systems
-
Respiratory: Denies Trouble Breathing
Cardiac: Denies Chest Pain
Abdomen/GI: Denies Abdominal Pain, Nausea or Vomiting
Physical Exam
-
General: Comfortable
Respiratory: Clear to Auscultation and Non Labored Respirations; Negative Accessory Resp Muscle Use
Cardiac: Regular Rhythm and S1/S2
GI: Soft
Neuro: AO x 3
Psych: Calm
Data Reviewed
-
Labs: Labs Reviewed by me
[2024-10-31] MEDS: SENOKOT-S 1 TABLET PO ×2 (07:40→19:38)
[2024-10-31] MEDS: PACERONE 200 MG PO (07:40)
[2024-10-31] MEDS: MIRALAX 17 GRAMS PO ×2 (07:40→19:38)
[2024-10-31] MEDS: LOW STRENGTH ASPIRIN 81 MG PO (07:40)
[2024-10-31] MEDS: B COMPLEX w/VITAMIN C 1 CAPLET PO (07:40)
[2024-10-31] MEDS: LIPITOR 40 MG PO (07:40)
--- NOTE | 2024-10-31 08:37 | PTCARENOTE ---
Confirmed with Dr. Anna prior to administration of ASA 81 that OK to give. ASA given per Dr. Anna.
[2024-10-31] MEDS: PROTONIX IV 40 MG IV ×2 (09:18→19:38)
[2024-10-31] MEDS: NSS (PRESERVATIVE FREE) 10 ML IV ×2 (09:18→19:38)
--- NOTE | 2024-10-31 10:40 | W.PN.NEPH.PH ---
Today's Communication / Plan
-
PD ordered
Assessment/Plan
-
Impression:
Syncope
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
Left carotid stenosis
End-stage renal disease on peritoneal dialysis
Hypertension
Paroxysmal atrial fibrillation
Hyperphosphatemia
Anemia
History of CABG
h/o bilat CEA at [place]
TCAR 08/11/2024
Plan:
hemodynamically stable
cont PD 1.5% Q4h exchanges, 2 L each exchange
For colorectal surgery evaluation
replete K/Calcium
-
-
Date of Service: October 31, 2024
CC / HPI / ROS
-
Chief Complaint:
ESRD
History of Present Illness:
PD in progress, no issues
Sodium low 134 stable
BP stable
K/Calcium low
Hgb low 6.9, transfused
Review of Systems:
No chest pain or shortness of breath
Labs
-
Labs:
WBC 8.3 10^3/uL (4.8-10.8) 10/31/24 03:15
RBC 2.12 10^6/uL (4.70-6.10) L 10/31/24 03:15
Hgb 6.9 g/dL (13.0-18.0) L* 10/31/24 03:15
Hct 20.9 % (39.0-52.0) L* 10/31/24 03:15
Plt Count 243 10^3/uL (130-400) 10/31/24 03:15
Sodium 134 mmol/L (135-145) L 10/31/24 03:15
Potassium 3.3 mmol/L (3.5-5.1) L 10/31/24 03:15
Chloride 96 mmol/L (98-107) L 10/31/24 03:15
Carbon Dioxide 27 mmol/L (22-30) 10/31/24 03:15
BUN 32 mg/dl (9-20) H 10/31/24 03:15
Creatinine 8.6 mg/dL (0.7-1.3) H* 10/31/24 03:15
eGFR 5.82 10/31/24 03:15
Glucose 96 mg/dl (70-99) 10/31/24 03:15
Calcium 7.7 mg/dl (8.4-10.2) L 10/31/24 03:15
Albumin 3.5 g/dl (3.5-5.0) 10/28/24 19:39
Physical Exam
-
Vital Signs:
Vital Signs
Temp Pulse Resp BP Pulse Ox
98.2 F 59 11 158/54 98
10/31/24 09:14 10/31/24 09:14 10/31/24 09:14 10/31/24 09:14 10/31/24 09:14
Cardiovascular:: Regular rate and rhythm
Respiratory:: Bilateral: Coarse
Lung Excursion:: Normal
Abdomen:: Nontender and Soft
Bowel Sounds:: Normal
Extremity Edema:: None: Bilateral:
[2024-10-31] MEDS: KCL 40 MEQ PO (11:03)
[2024-10-31] MEDS: CALCIUM GLUCONATE 130 MG IV (11:03)
--- NOTE | 2024-10-31 14:20 | PTCARENOTE ---
Dr. Anna made aware that patients BP is 176/69 and repeat BP is 174/66. Patient resting comfortably in bed. No new orders at this time.
--- NOTE | 2024-10-31 17:22 | PTCARENOTE ---
Patient AOx3. Patient has flat affect. Patient on RA. Sinus angelito-NSR with first degree and prolonged QT on monitor. Patient is oliguric. PD completed per order. Patient stated that 'clear liquid diet always bothers his stomach'. Patient has poor
appetite. 1 unit PRBC's transfused per order. Call molina within reach, bed in lowest position.
[2024-10-31] MEDS: TUMS CHEWABLE TABLET 400 MG PO (17:44)
[2024-11-01] VITALS (18 sets, daily range): BP systolic 72–133; BP diastolic 42–97; PULSE 69–88; BMI 23.6
--- NOTE | 2024-11-01 00:04 | PTCARENOTE ---
Pt noted to have bright red blood per rectum in commode after having a moderate formed bm. Per pt, this is not abnormal and is d/t hemorrhoids. Stool is brown, heme test neg. Colorectal surg consulted for possible hemorrhoidectomy.
[2024-11-01] MEDS: SYNTHROID 150 MCG PO (04:51)
[2024-11-01] MEDS: TUMS CHEWABLE TABLET 400 MG PO ×4 (04:51→20:03)
[2024-11-01 05:24] LABS: Hematocrit 27.9 % (39.0-52.0); Hemoglobin 9.5 g/dL (13.0-18.0); Mean Corp Hgb Conc. 34.1 g/dL (33.0-37.0); Mean Corpuscular Volume 96.9 fL (80.0-94.0); Mean Platelet Volume 9.4 fL (7.4-10.4); Platelet Count 259 10^3/uL (130-400); Red Blood Cell Count 2.88 10^6/uL (4.70-6.10); Red Cell Dist. Width 18.7 % (11.5-14.5); White Blood Cell Count 10.3 10^3/uL (4.8-10.8)
--- NOTE | 2024-11-01 07:54 | PTCARENOTE ---
Assumed care of patient this AM. Next PD exchange 8 AM. Patient reports ongoing N/V and rib discomfort related to fall prior to admission. VS stable. Patient level of care medical-surgical as ordered.
[2024-11-01] MEDS: LIPITOR 40 MG PO (08:21)
[2024-11-01] MEDS: SENOKOT-S 1 TABLET PO ×2 (08:21→20:04)
[2024-11-01] MEDS: B COMPLEX w/VITAMIN C 1 CAPLET PO (08:21)
[2024-11-01] MEDS: PACERONE 200 MG PO (08:22)
[2024-11-01] MEDS: TYLENOL 650 MG PO (08:22)
[2024-11-01] MEDS: LOW STRENGTH ASPIRIN 81 MG PO (08:22)
[2024-11-01] MEDS: NSS (PRESERVATIVE FREE) 10 ML IV ×2 (08:23→20:04)
[2024-11-01] MEDS: PROTONIX IV 40 MG IV ×2 (08:23→20:04)
[2024-11-01] MEDS: MIRALAX PO (08:26)
[2024-11-01] MEDS: TUMS CHEWABLE TABLET PO (12:23)
--- NOTE | 2024-11-01 13:00 | W.PN.NEPH.PH ---
Today's Communication / Plan
-
await labs
cont PD
Assessment/Plan
-
Impression:
Syncope
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
Left carotid stenosis
End-stage renal disease on peritoneal dialysis
Hypertension
Paroxysmal atrial fibrillation
Hyperphosphatemia
Anemia
History of CABG
h/o bilat CEA at [place]
TCAR 08/11/2024
Plan:
hemodynamically stable
cont PD 1.5% Q4h exchanges, 2 L each exchange
PD flow sheets noted
hb better post pRBC
await colorectal surgery evaluation
replete K/Calcium-await labs today
-
-
Date of Service: November 01, 2024
CC / HPI / ROS
-
Chief Complaint:
ESRD
History of Present Illness:
PD in progress, no issues
Sodium low 134 stable
BP stable
K/Calcium low
Hgb better at 9.5 post transfused 10/31
Review of Systems:
No chest pain or shortness of breath
no n/v
Labs
-
Labs:
WBC 10.3 10^3/uL (4.8-10.8) 11/01/24 04:09
RBC 2.88 10^6/uL (4.70-6.10) L 11/01/24 04:09
Hgb 9.5 g/dL (13.0-18.0) L D 11/01/24 04:09
Hct 27.9 % (39.0-52.0) L 11/01/24 04:09
Plt Count 259 10^3/uL (130-400) 11/01/24 04:09
eGFR 5.82 10/31/24 03:15
Albumin 3.5 g/dl (3.5-5.0) 10/28/24 19:39
Physical Exam
-
Vital Signs:
Vital Signs
Temp Pulse Resp BP Pulse Ox
98 F 70 13 109/54 95
11/01/24 07:55 11/01/24 11:32 11/01/24 11:32 11/01/24 11:32 11/01/24 08:34
Cardiovascular:: Regular rate and rhythm
Respiratory:: Bilateral: CTA
Lung Excursion:: Normal
Abdomen:: Nontender and Soft
Extremity Edema:: None: Bilateral:
Gavin Catheter: No
[2024-11-01 14:23] LABS: Blood Urea Nitrogen 27 mg/dl (9-20); Calcium 8.4 mg/dl (8.4-10.2); Carbon Dioxide 28 mmol/L (22-30); Chloride 97 mmol/L (98-107); Estimated Creatinine Clearance 7 ml/min; Glucose 94 mg/dl (70-99); Potassium 3.3 mmol/L (3.5-5.1); Sodium 131 mmol/L (135-145); eGFR 6.76
[2024-11-01] MEDS: GAVISCON LIQUID 15 ML PO ×2 (14:47→18:19)
--- NOTE | 2024-11-01 15:23 | W.PN.HOSP.TC ---
Today's Communication/Plan
-
monitor hgb
await CRS recs
PD
Assessment / Plan
Assessment / Plan
A/P: Patient is a 79y M with PMH significant for ASCVD, ESRD on PD and A-Fib who presents to ED complaining of syncope / collapse at home.
Recurrent Syncope
Orthostatic Hypotension
-Ongoing orthostatic drop in blood pressure noted. Not sure if this is dysautonomia or secondary to blood loss and anemia. No arrhythmia noted on the patient monitor. Transfuse PRBC and if still orthostatic start on midodrine. Patient says he
was using midodrine in the past but was discontinued because he was on antihypertensives.
- TSH does not support hypothyroidism. serum cortisol normal.
- Now off of all antihypertensive medications following prior hospitalizations.
Chronic Anemia of CKD
Possible chronic blood loss anemia
GI Bleeding-bright red rectal bleeding
History of hemorrhoidal bleeding and anemia
- Likely anemia of CKD and possibly hemorrhoidal related bleeding
- GI input noted. Patient declining endoscopic eval as he says he had a colonoscopy a year ago.
- With concern for hemorrhoidal bleeding will ask colorectal surgery if there is any role for hemorrhoidectomy
- Hold Eliquis acutely.
- Transfused 1 unit of PRBC 10/31 as H&H dropped to 6.9�responded well
� Colorectal surgery consulted
ESRD on PD
- Continue with PD
- Nephrology evaluation for treatments during his hospital stay.
ASCVD
- Stable. No chest pain / dyspnea / etc.
- Continue ASA uninterrupted given carotid stent (08/2024).
Paroxysmal Atrial Fibrillation
Prolonged QT
- Stable. Continue amiodarone and monitor on telemetry.
- Avoid other QT prolonging medications.
- Hold Eliquis acutely as noted above.
Benign Hypertension
- All BP medications have been discontinued during prior hospitalizations.
- Follow orthostatic signs and consider initiation of midodrine if needed to avoid symptomatic orthostatic hypotension.
Hypothyroidism
- Stable. Continue T4 replacement.
#Hypokalemia
-HD
#Hyponatremia
-HD
DVT Prophylaxis: SCDs
Code Status: DNR
Discussed with RN
Anticipated Discharge: 24 - 48 hours
Subjective/Interval History
-
Date of Service: November 01, 2024
Responsible to hemoglobin, still having blood around stool
Objective Data
-
Labs:
Laboratory Results
11/01/24 11/01/24
04:09 12:41
WBC 10.3
Hgb 9.5 L D
Hct 27.9 L
Plt Count 259
Sodium 131 L
Potassium 3.3 L
Chloride 97 L
Carbon Dioxide 28
BUN 27 H
Creatinine 7.6 H*
Glucose 94
Calcium 8.4
Vital Signs:
Vital Signs
Temp Pulse Resp BP Pulse Ox
98 F 66 15 124/56 95
11/01/24 07:55 11/01/24 14:00 11/01/24 14:00 11/01/24 14:00 11/01/24 08:34
I&O
10/31/24 11/01/24 11/02/24
06:59 06:59 06:59
Intake Total 0 / 0 490 / 490 540 / 540
Output Total 525 / 525 1100 / 1100 300 / 300
Balance -525 / -525 -610 / -610 240 / 240
Review of Systems
-
History Source: Patient
All other systems: Not reviewed unless documented
Data Reviewed
-
Diagnostic Radiology: Report Reviewed by me
Labs: Labs Reviewed by me
--- NOTE | 2024-11-01 17:00 | CM ---
Patient with Hx ESRD on PD. Room air. Clear liquids. PT recommends Skilled Rehab. OT recommends SNF vs home.
Attempted to speak with patient who was sleeping.
Spoke with Alivia, daughter; the patient has private pay caregivers in place 2 hrs/day 5 days/week. Daughter and caregivers assist patient with PD. Daughter would like the patient to have [facility] again at discharge. She expressed her
concerns about the patient's current status with concern about his bleeding. Daughter is not home with patient all day - suggested possible need for increased caregiver hours at discharge.
Referral to [facility] for SN/PT/OT.
Plan home with [facility].
--- NOTE | 2024-11-01 18:45 | PTCARENOTE ---
Patient tolerating PD. Patient having on going abdominal pain and N/V. Tolerating clear liquids. He would love to have his diet advanced. Vital signs stable. Using call molina appropriately.
[2024-11-01] MEDS: MIRALAX 17 GRAMS PO (20:03)
[2024-11-01] MEDS: KCL 40 MEQ PO (22:02)
[2024-11-01] MEDS: BENADRYL 12.5 MG IV (22:06)
[2024-11-02] VITALS (15 sets, daily range): BP systolic 81–142; BP diastolic 44–73; PULSE 79–91; BMI 23.0
[2024-11-02 04:29] LABS: Hematocrit 30.2 % (39.0-52.0); Hemoglobin 10.1 g/dL (13.0-18.0); Mean Corp Hgb Conc. 33.4 g/dL (33.0-37.0); Mean Corpuscular Hgb 32.9 pg (27.0-31.0); Mean Corpuscular Volume 98.4 fL (80.0-94.0); Mean Platelet Volume 9.2 fL (7.4-10.4); Platelet Count 289 10^3/uL (130-400); Red Blood Cell Count 3.07 10^6/uL (4.70-6.10); Red Cell Dist. Width 19.2 % (11.5-14.5); White Blood Cell Count 9.7 10^3/uL (4.8-10.8)
[2024-11-02] MEDS: SYNTHROID 150 MCG PO (04:49)
[2024-11-02 05:17] LABS: ALT (SGPT) 16 U/L (0-50); AST (SGOT) 18 U/L (17-59); Albumin 2.7 g/dl (3.5-5.0); Alkaline Phosphatase 103 U/L (38-126); Blood Urea Nitrogen 23 mg/dl (9-20); Calcium 8.4 mg/dl (8.4-10.2); Carbon Dioxide 31 mmol/L (22-30); Chloride 96 mmol/L (98-107); Estimated Creatinine Clearance 7 ml/min; Glucose 85 mg/dl (70-99); Potassium 4.2 mmol/L (3.5-5.1); Sodium 134 mmol/L (135-145); Total Bilirubin 0.3 mg/dl (0.2-1.3); eGFR 6.55
[2024-11-02] MEDS: LOW STRENGTH ASPIRIN 81 MG PO (09:24)
[2024-11-02] MEDS: LIPITOR 40 MG PO (09:24)
[2024-11-02] MEDS: B COMPLEX w/VITAMIN C 1 CAPLET PO (09:24)
[2024-11-02] MEDS: PACERONE 200 MG PO (09:24)
[2024-11-02] MEDS: MIRALAX 17 GRAMS PO ×2 (09:25→19:58)
[2024-11-02] MEDS: NSS (PRESERVATIVE FREE) 10 ML IV ×2 (09:25→19:58)
[2024-11-02] MEDS: PROTONIX IV 40 MG IV ×2 (09:26→19:59)
[2024-11-02] MEDS: SENOKOT-S 1 TABLET PO ×2 (09:26→19:58)
[2024-11-02] MEDS: TUMS CHEWABLE TABLET 400 MG PO (09:28)
--- NOTE | 2024-11-02 11:35 | W.PN.GI.CBS2 ---
Addendum entered and electronically signed by Edgard Chery DO 11/02/24 17:35:
I saw and examined the patient.
The ORE DRESSING ENGINEER's note was reviewed and I agree with the note.
Comment: Discussed with patient again later this afternoon, continues to decline any and all interventions including a colonoscopy and/or potential flex-sig to further evaluate his bleeding. Declined rectal exam as well. Given this and his request
to eat solid food, will defer any further plans for any endoscopic interventions at this time. If no further bleeding, would recommend very close outpatient follow-up with [facility] as he is well known to them. If recurrent large volume
hematochezia while inpatient, would consider tagged RBC scan. Will attempt to obtain prior colonoscopy records from [facility] as well if he continues to remain as an inpatient. As patient continues to refuse any further work-up despite prolonged
discussions on multiple occasions, GI team will sign-off. He may have regular diet as tolerated and agree with resuming a/c and ongoing monitoring. Rest of care as outlined below.
Discussed with primary internal medicine team this afternoon. GI will sign-off, please re-engage for any questions or concerns.
Addendum entered and electronically signed by LUZ MARIA Kaye 11/02/24 15:26:
after seen pt passed red blood with straining for stool. He agreed to rectal exam with noted brown stool no blood. If bleeding persists consider colon vs flex -- reviewed with Dr. Diaz for advanced diet today as did not eat since
admission. Requested prior colonoscopy records from [facility]
Original Note:
Today's Communication / Plan
-
reviewed with nursing no signs of active bleeding and stools are now soft
cont bowel regiment
baseline hbg around 8 range with CKD
he again declined rectal exam today
last colonoscopy [address] [facility]
reviewed with Dr. Pantoja for advancing diet
hold on repeat colonoscopy without signs of bleeding and adequate response to transfusion -- pt declines to repeat
OP follow up at [facility]
plan to resume anticoagulation and monitor
cont ASA
if recurrent large volume bleeding consider nuclear scan
Assessment / Plan
-
79-year-old male with past medical history of left occipital stroke with severe left carotid stenosis, CAD, hypertension, hyperlipidemia, hypothyroidism, end-stage renal failure on peritoneal dialysis, anemia of chronic disease, A-fib on Eliquis,
last dose 2 days ago, colon polyp with recent fall on 10/26/2024 while in the bathroom hitting his right rib cage. Anticoagulation was stopped at that time. Prior to that he was having intermittent episodes of bright red blood per rectum. Patient
states that he felt this was secondary to his hemorrhoids that he has had on and off periodically. Prior to that he had 2 days of diarrhea. He did have some mild rectal bleeding associated with that as well. Yesterday the patient was on the
toilet trying to have a bowel movement. He felt nausea with dizziness. He had near syncope. There was some blood in the toilet. He was brought to the emergency room further evaluation. He has already been off Eliquis for 2 days. Patient
initially declined rectal exam however later did allow emergency room physician to perform rectal exam. There was brown stool. There was old blood dried in rectal area. No obvious external hemorrhoids with bleeding. No further episodes of
bleeding while in the emergency room. Patient tolerating clear liquid diet. No abdominal pain. Patient's last colonoscopy was less than 1 year ago. At that time he had 2 colonoscopies 1 in October 2019 for the second in December 2023 for removal of
polyp done at [facility] in [place]. Patient states that the physician states he required no further colonoscopies. Records unavailable to us. Patient has prior history of hemorrhoidectomy in the past with bleeding hemorrhoids subsequent to
this. At the present time the patient denies any fevers, chills, nausea, vomiting, melena, dysphagia or odynophagia. No early satiety or unintentional weight loss. WBC 13.6, hemoglobin 7.8 down from 8.7, hematocrit 24.3, platelets 262. He did
receive 1 L of normal saline during this time. Patient baseline hemoglobin in the mid 8-9 range.
Impression:
Syncope
Fall
Rectal bleeding
-- declined rectal exam on admission and repeat eval 11/02
hx hemorrhoidectomy
hx polyps with colonoscopy 2023
Plan:
reviewed with nursing no signs of active bleeding and stools are now soft
cont bowel regiment
baseline hbg around 8 range with CKD
he again declined rectal exam today
last colonoscopy [address] [facility]
reviewed with Dr. Pantoja for advancing diet
hold on repeat colonoscopy without signs of bleeding and adequate response to transfusion -- pt declines to repeat
OP follow up at [facility]
plan to resume anticoagulation and monitor
cont ASA
if recurrent large volume bleeding consider nuclear scan
Subjective
Subjective
Date of Service: November 02, 2024
brown stool pt reports no further bleeding, on clear diet some issues with orthostasis
Objective
Data Reviewed
Laboratory Data:
Laboratory Results
11/02/24 04:10
11/02/24 04:10
Laboratory Results
Total Bilirubin 0.3 mg/dl (0.2-1.3) 11/02/24 04:10
AST 18 U/L (17-59) 11/02/24 04:10
ALT 16 U/L (0-50) 11/02/24 04:10
Alkaline Phosphatase 103 U/L (38-126) 11/02/24 04:10
Vital Signs and I&O:
Vital Signs
Temp Pulse Resp BP Pulse Ox
98.1 F 78 11 110/44 97
11/02/24 07:49 11/02/24 08:00 11/02/24 08:00 11/02/24 08:00 11/02/24 06:15
I&O
11/01/24 11/02/24 11/03/24
06:59 06:59 06:59
Intake Total 490 / 490 1080 / 1080
Output Total 1100 / 1100 600 / 600 100 / 100
Balance -610 / -610 480 / 480 -100 / -100
Physical Exam
Physical Exam
HEENT: Anicteric and Moist mucous membranes
Cardiology: Normal Sinus Rhythm
Pulmonary: Clear
GI: Soft, Non Distended, Non Tender and Other (PD cath )
Neuro: Non Focal
--- NOTE | 2024-11-02 12:07 | W.PN.NEPH.PH ---
Today's Communication / Plan
-
cotn PD same
Assessment/Plan
-
Impression:
Syncope
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
Left carotid stenosis
End-stage renal disease on peritoneal dialysis
Hypertension
Paroxysmal atrial fibrillation
Hyperphosphatemia
Anemia
History of CABG
h/o bilat CEA at [place]
TCAR 08/11/2024
Plan:
hemodynamically stable
cont PD 1.5% Q4h exchanges, 2 L each exchange
PD flow sheets noted, even balance
hb better post pRBC, no active bleeding
d/c plan
-
-
Date of Service: November 02, 2024
CC / HPI / ROS
-
Chief Complaint:
ESRD
History of Present Illness:
PD in progress, no issues
Sodium low 134 stable
BP stable
k better at 4.2, ramona normal
Hgb better at 10 post transfused 10/31
Review of Systems:
No chest pain or shortness of breath
no n/v
soft BM with out bleeding
Labs
-
Labs:
WBC 9.7 10^3/uL (4.8-10.8) 11/02/24 04:10
RBC 3.07 10^6/uL (4.70-6.10) L 11/02/24 04:10
Hgb 10.1 g/dL (13.0-18.0) L 11/02/24 04:10
Hct 30.2 % (39.0-52.0) L 11/02/24 04:10
Plt Count 289 10^3/uL (130-400) 11/02/24 04:10
Sodium 134 mmol/L (135-145) L 11/02/24 04:10
Potassium 4.2 mmol/L (3.5-5.1) D 11/02/24 04:10
Chloride 96 mmol/L (98-107) L 11/02/24 04:10
Carbon Dioxide 31 mmol/L (22-30) H 11/02/24 04:10
BUN 23 mg/dl (9-20) H 11/02/24 04:10
Creatinine 7.8 mg/dL (0.7-1.3) H* 11/02/24 04:10
eGFR 6.55 11/02/24 04:10
Glucose 85 mg/dl (70-99) 11/02/24 04:10
Calcium 8.4 mg/dl (8.4-10.2) 11/02/24 04:10
Albumin 2.7 g/dl (3.5-5.0) L 11/02/24 04:10
Physical Exam
-
Vital Signs:
Vital Signs
Temp Pulse Resp BP Pulse Ox
98.1 F 78 11 110/44 97
11/02/24 07:49 11/02/24 08:00 11/02/24 08:00 11/02/24 08:00 11/02/24 06:15
Cardiovascular:: Regular rate and rhythm
Respiratory:: Bilateral: CTA
Lung Excursion:: Normal
Abdomen:: Nontender and Soft
Extremity Edema:: None: Bilateral:
Gavin Catheter: No
--- NOTE | 2024-11-02 12:49 | PTCARENOTE ---
Orthostatic VS completed while getting oob - provider aware results. PT/OT escorted into bathroom SBP then 81. Blood noted in toilet- unable to assess stool. Relayed to Dr. Diaz and Olimpia Dhaliwal.
[2024-11-02] MEDS: GAVISCON LIQUID 15 ML PO (14:03)
[2024-11-02] MEDS: TYLENOL 650 MG PO (14:19)
--- NOTE | 2024-11-02 16:16 | W.PN.HOSP.TC ---
Today's Communication/Plan
-
monitor hgb, blood bms
Assessment / Plan
Assessment / Plan
A/P: Patient is a 79y M with PMH significant for ASCVD, ESRD on PD and A-Fib who presents to ED complaining of syncope / collapse at home.
Recurrent Syncope
Orthostatic Hypotension
-Ongoing orthostatic drop in blood pressure noted. Not sure if this is dysautonomia or secondary to blood loss and anemia. No arrhythmia noted on the child monitor. Transfuse PRBC and if still orthostatic start on midodrine. Patient says he
was using midodrine in the past but was discontinued because he was on antihypertensives.
- TSH does not support hypothyroidism. serum cortisol normal.
- Now off of all antihypertensive medications following prior hospitalizations.
Chronic Anemia of CKD
Possible chronic blood loss anemia
GI Bleeding-bright red rectal bleeding
History of hemorrhoidal bleeding and anemia
- Likely anemia of CKD and possibly hemorrhoidal related bleeding
- GI input noted. Patient declining endoscopic eval as he says he had a colonoscopy a year ago.
- With concern for hemorrhoidal bleeding will ask colorectal surgery if there is any role for hemorrhoidectomy
- Hold Eliquis acutely.
- Transfused 1 unit of PRBC 10/31 as H&H dropped to 6.9�responded well
� had repeat bloody BM, if continues can Scope this week
ESRD on PD
- Continue with PD
- Nephrology evaluation for treatments during his hospital stay.
ASCVD
- Stable. No chest pain / dyspnea / etc.
- Continue ASA uninterrupted given carotid stent (08/2024).
Paroxysmal Atrial Fibrillation
Prolonged QT
- Stable. Continue amiodarone and monitor on telemetry.
- Avoid other QT prolonging medications.
- Hold Eliquis acutely as noted above.
Benign Hypertension
- All BP medications have been discontinued during prior hospitalizations.
- Follow orthostatic signs and consider initiation of midodrine if needed to avoid symptomatic orthostatic hypotension.
Hypothyroidism
- Stable. Continue T4 replacement.
#Hypokalemia
-HD
#Hyponatremia
-HD
DVT Prophylaxis: SCDs
Code Status: DNR
Discussed with RN
Anticipated Discharge: Within 24 hours
Subjective/Interval History
-
Date of Service: November 02, 2024
rectal bleeding this am
Objective Data
-
Labs:
Laboratory Results
11/02/24
04:10
WBC 9.7
Hgb 10.1 L
Hct 30.2 L
Plt Count 289
Sodium 134 L
Potassium 4.2 D
Chloride 96 L
Carbon Dioxide 31 H
BUN 23 H
Creatinine 7.8 H*
Glucose 85
Calcium 8.4
Total Bilirubin 0.3
AST 18
ALT 16
Alkaline Phosphatase 103
Vital Signs:
Vital Signs
Temp Pulse Resp BP Pulse Ox
97.7 F 71 16 98/48 97
11/02/24 15:19 11/02/24 14:00 11/02/24 12:24 11/02/24 14:00 11/02/24 06:15
I&O
11/01/24 11/02/24 11/03/24
06:59 06:59 06:59
Intake Total 490 / 490 1080 / 1080
Output Total 1100 / 1100 600 / 600 700 / 700
Balance -610 / -610 480 / 480 -700 / -700
Review of Systems
-
History Source: Patient
All other systems: Not reviewed unless documented
Physical Exam
-
General: Comfortable
Respiratory: Clear to Auscultation and Non Labored Respirations; Negative Accessory Resp Muscle Use
Cardiac: Regular Rhythm and S1/S2
GI: Soft
Neuro: AO x 3
Psych: Calm
Data Reviewed
-
Diagnostic Radiology: Report Reviewed by me
Labs: Labs Reviewed by me
--- NOTE | 2024-11-02 16:53 | PTCARENOTE ---
OOB to chair few hours today. BP currently 98/51- lightheadness resolved. C/o constant 'heartburn'- was relieved short time after IV Protonix, Tums, this pm asked for Gaviscon. Tylenol given for 9/10 rib pain (only hurts when he moves).
Tolerating PD exchanges - 700 this shift.
[2024-11-03] VITALS (10 sets, daily range): BP systolic 106–129; BP diastolic 46–88; PULSE 71–80; BMI 22.9
[2024-11-03] MEDS: SYNTHROID 150 MCG PO (04:53)
[2024-11-03] MEDS: TUMS CHEWABLE TABLET 400 MG PO ×3 (04:53→20:50)
[2024-11-03 05:14] LABS: Hematocrit 29.5 % (39.0-52.0); Hemoglobin 9.6 g/dL (13.0-18.0); Mean Corp Hgb Conc. 32.5 g/dL (33.0-37.0); Mean Corpuscular Hgb 32.9 pg (27.0-31.0); Mean Platelet Volume 9.3 fL (7.4-10.4); Platelet Count 279 10^3/uL (130-400); Red Blood Cell Count 2.92 10^6/uL (4.70-6.10); Red Cell Dist. Width 18.6 % (11.5-14.5)
[2024-11-03 05:32] LABS: ALT (SGPT) 15 U/L (0-50); AST (SGOT) 18 U/L (17-59); Albumin 2.5 g/dl (3.5-5.0); Alkaline Phosphatase 105 U/L (38-126); Blood Urea Nitrogen 25 mg/dl (9-20); Calcium 8.1 mg/dl (8.4-10.2); Carbon Dioxide 31 mmol/L (22-30); Chloride 94 mmol/L (98-107); Estimated Creatinine Clearance 7 ml/min; Glucose 100 mg/dl (70-99); Potassium 4.3 mmol/L (3.5-5.1); Sodium 133 mmol/L (135-145); Total Bilirubin 0.2 mg/dl (0.2-1.3); Total Protein 4.7 g/dl (6.3-8.2); eGFR 6.76
[2024-11-03] MEDS: LOW STRENGTH ASPIRIN 81 MG PO (08:47)
[2024-11-03] MEDS: MIRALAX 17 GRAMS PO ×2 (08:47→20:49)
[2024-11-03] MEDS: LIPITOR 40 MG PO (08:47)
[2024-11-03] MEDS: PACERONE 200 MG PO (08:47)
[2024-11-03] MEDS: B COMPLEX w/VITAMIN C 1 CAPLET PO (08:47)
[2024-11-03] MEDS: SENOKOT-S 1 TABLET PO ×2 (08:47→20:49)
[2024-11-03] MEDS: NSS (PRESERVATIVE FREE) 10 ML IV ×2 (08:48→20:49)
[2024-11-03] MEDS: PROTONIX IV 40 MG IV ×2 (08:48→20:49)
--- NOTE | 2024-11-03 10:18 | W.PN.NEPH.PH ---
Today's Communication / Plan
-
PD
Assessment/Plan
-
Impression:
Syncope
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
Left carotid stenosis
End-stage renal disease on peritoneal dialysis
Hypertension
Paroxysmal atrial fibrillation
Hyperphosphatemia
Anemia
History of CABG
h/o bilat CEA at [place]
TCAR 08/11/2024
Plan:
hemodynamically stable
cont PD 1.5% Q4h exchanges, 2 L each exchange
follow Hgb
-
-
Date of Service: November 03, 2024
CC / HPI / ROS
-
Chief Complaint:
ESRD
History of Present Illness:
PD in progress, no issues
Sodium low 133 stable
BP stable
Hgb down to 9.6
Review of Systems:
No chest pain or shortness of breath
no n/v
Labs
-
Labs:
WBC 9.0 10^3/uL (4.8-10.8) 11/03/24 04:43
RBC 2.92 10^6/uL (4.70-6.10) L 11/03/24 04:43
Hgb 9.6 g/dL (13.0-18.0) L 11/03/24 04:43
Hct 29.5 % (39.0-52.0) L 11/03/24 04:43
Plt Count 279 10^3/uL (130-400) 11/03/24 04:43
Sodium 133 mmol/L (135-145) L 11/03/24 04:43
Potassium 4.3 mmol/L (3.5-5.1) 11/03/24 04:43
Chloride 94 mmol/L (98-107) L 11/03/24 04:43
Carbon Dioxide 31 mmol/L (22-30) H 11/03/24 04:43
BUN 25 mg/dl (9-20) H 11/03/24 04:43
Creatinine 7.6 mg/dL (0.7-1.3) H* 11/03/24 04:43
eGFR 6.76 11/03/24 04:43
Glucose 100 mg/dl (70-99) H 11/03/24 04:43
Calcium 8.1 mg/dl (8.4-10.2) L 11/03/24 04:43
Albumin 2.5 g/dl (3.5-5.0) L 11/03/24 04:43
Physical Exam
-
Vital Signs:
Vital Signs
Temp Pulse Resp BP Pulse Ox
98.3 F 74 16 124/52 97
11/03/24 07:05 11/03/24 06:01 11/02/24 12:24 11/03/24 06:01 11/02/24 06:15
Cardiovascular:: Regular rate and rhythm
Respiratory:: Bilateral: CTA
Lung Excursion:: Normal
Abdomen:: Nontender and Soft
Bowel Sounds:: Normal
Extremity Edema:: None: Bilateral:
--- NOTE | 2024-11-03 14:58 | W.PN.HOSP.TC ---
Today's Communication/Plan
-
restart eliquis, monitor hgB, BRBPR
Assessment / Plan
Assessment / Plan
A/P: Patient is a 79y M with PMH significant for ASCVD, ESRD on PD and A-Fib who presents to ED complaining of syncope / collapse at home.
Recurrent Syncope
Orthostatic Hypotension
-Ongoing orthostatic drop in blood pressure noted. Not sure if this is dysautonomia or secondary to blood loss and anemia. No arrhythmia noted on the desk monitor. Transfuse PRBC and if still orthostatic start on midodrine. Patient says he
was using midodrine in the past but was discontinued because he was on antihypertensives.
- TSH does not support hypothyroidism. serum cortisol normal.
- Now off of all antihypertensive medications following prior hospitalizations.
-may need midodrine
Chronic Anemia of CKD
Possible chronic blood loss anemia
GI Bleeding-bright red rectal bleeding
History of hemorrhoidal bleeding and anemia
- Likely anemia of CKD and possibly hemorrhoidal related bleeding
- GI input noted. Patient declining endoscopic eval as he says he had a colonoscopy a year ago.
- With concern for hemorrhoidal bleeding will ask colorectal surgery if there is any role for hemorrhoidectomy
- Hold Eliquis acutely.
- Transfused 1 unit of PRBC 10/31 as H&H dropped to 6.9�responded well
� continues to refuse Scope - understands risks
-Restart Eliquis and monitor
ESRD on PD
- Continue with PD
- Nephrology evaluation for treatments during his hospital stay.
ASCVD
- Stable. No chest pain / dyspnea / etc.
- Continue ASA uninterrupted given carotid stent (08/2024).
Paroxysmal Atrial Fibrillation
Prolonged QT
- Stable. Continue amiodarone and monitor on telemetry.
- Avoid other QT prolonging medications.
- resume Eliquis
Benign Hypertension
- All BP medications have been discontinued during prior hospitalizations.
- Follow orthostatic signs and consider initiation of midodrine if needed to avoid symptomatic orthostatic hypotension.
Hypothyroidism
- Stable. Continue T4 replacement.
#Hypokalemia
-HD
#Hyponatremia
-HD
DVT Prophylaxis: Eliquis
Code Status: DNR
Anticipated Discharge: Within 24 hours
Subjective/Interval History
-
Date of Service: November 03, 2024
No further bloody bowel movements
Objective Data
-
Labs:
Laboratory Results
11/03/24
04:43
WBC 9.0
Hgb 9.6 L
Hct 29.5 L
Plt Count 279
Sodium 133 L
Potassium 4.3
Chloride 94 L
Carbon Dioxide 31 H
BUN 25 H
Creatinine 7.6 H*
Glucose 100 H
Calcium 8.1 L
Total Bilirubin 0.2
AST 18
ALT 15
Alkaline Phosphatase 105
Vital Signs:
Vital Signs
Temp Pulse Resp BP Pulse Ox
98.1 F 74 16 107/54 97
11/03/24 11:05 11/03/24 12:00 11/02/24 12:24 11/03/24 08:55 11/02/24 06:15
I&O
11/02/24 11/03/24 11/04/24
06:59 06:59 06:59
Intake Total 1080 / 1080 840 / 840 0 / 0
Output Total 600 / 600 1500 / 1500 500 / 500
Balance 480 / 480 -660 / -660 -500 / -500
Review of Systems
-
History Source: Patient
All other systems: Not reviewed unless documented
Physical Exam
-
General: Comfortable
Respiratory: Clear to Auscultation and Non Labored Respirations; Negative Accessory Resp Muscle Use
Cardiac: Regular Rhythm and S1/S2
GI: Soft
Neuro: AO x 3
Psych: Calm
Data Reviewed
-
Diagnostic Radiology: Report Reviewed by me
Labs: Labs Reviewed by me
[2024-11-03] MEDS: ELIQUIS 2.5 MG PO ×2 (17:09→22:44)
[2024-11-03] MEDS: TYLENOL 650 MG PO (18:14)
[2024-11-03] MEDS: GAVISCON LIQUID 15 ML PO (18:14)
[2024-11-04] VITALS (20 sets, daily range): BP systolic 90–143; BP diastolic 41–106; PULSE 75–90; BMI 23.0
--- NOTE | 2024-11-04 01:21 | PTCARENOTE ---
assumed care of patient. pt is AAOx3, flat affect. PD done q4 hours without issues. pt c/o nausea and indigestion. given PRN tums. pt was able to get OOB x1 assist with RW to BSC to have a BM. BM was black with bright red blood noted in commode
bin. no c/o dizziness during transfer. care ongoing.
[2024-11-04] MEDS: SYNTHROID 150 MCG PO (03:36)
[2024-11-04] MEDS: GAVISCON LIQUID 15 ML PO ×2 (03:36→15:05)
[2024-11-04 04:25] LABS: Hematocrit 28.7 % (39.0-52.0); Hemoglobin 9.6 g/dL (13.0-18.0); Mean Corp Hgb Conc. 33.4 g/dL (33.0-37.0); Mean Corpuscular Hgb 33.1 pg (27.0-31.0); Mean Platelet Volume 9.4 fL (7.4-10.4); Platelet Count 281 10^3/uL (130-400); Red Cell Dist. Width 18.1 % (11.5-14.5); White Blood Cell Count 9.1 10^3/uL (4.8-10.8)
[2024-11-04 04:48] LABS: ALT (SGPT) 14 U/L (0-50); AST (SGOT) 19 U/L (17-59); Albumin 2.5 g/dl (3.5-5.0); Alkaline Phosphatase 113 U/L (38-126); Blood Urea Nitrogen 26 mg/dl (9-20); Carbon Dioxide 29 mmol/L (22-30); Chloride 95 mmol/L (98-107); Estimated Creatinine Clearance 8 ml/min; Glucose 93 mg/dl (70-99); Potassium 3.5 mmol/L (3.5-5.1); Sodium 131 mmol/L (135-145); Total Bilirubin 0.3 mg/dl (0.2-1.3); Total Protein 4.7 g/dl (6.3-8.2); eGFR 7.21
--- NOTE | 2024-11-04 06:33 | PTCARENOTE ---
pt continuously complaining that his stomach hurts. claims the 'liquid diet' he was on has messed up his stomach. asking for tums and gaviscon, states it helps his stomach. meds given per MAR with positive effect. care ongoing
[2024-11-04] MEDS: TUMS CHEWABLE TABLET 400 MG PO ×2 (08:18→13:44)
[2024-11-04] MEDS: B COMPLEX w/VITAMIN C 1 CAPLET PO (08:19)
[2024-11-04] MEDS: SENOKOT-S 1 TABLET PO ×2 (08:20→20:45)
[2024-11-04] MEDS: ELIQUIS 2.5 MG PO ×2 (08:20→20:45)
[2024-11-04] MEDS: LOW STRENGTH ASPIRIN 81 MG PO (08:20)
[2024-11-04] MEDS: LIPITOR 40 MG PO (08:21)
[2024-11-04] MEDS: PACERONE 200 MG PO (08:21)
[2024-11-04] MEDS: NSS (PRESERVATIVE FREE) 10 ML IV ×2 (08:21→20:45)
[2024-11-04] MEDS: FLUSH (NSS) 1 FLUSH IV (08:22)
[2024-11-04] MEDS: PROTONIX IV 40 MG IV ×2 (08:22→20:45)
--- NOTE | 2024-11-04 08:25 | W.PN.NEPH.PH ---
Today's Communication / Plan
-
PD
Assessment/Plan
-
Impression:
Syncope
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
Left carotid stenosis
End-stage renal disease on peritoneal dialysis
Hypertension
Paroxysmal atrial fibrillation
Hyperphosphatemia
Anemia
History of CABG
h/o bilat CEA at [place]
TCAR 08/11/2024
Plan:
hemodynamically stable
cont PD 1.5% Q4h exchanges, 2 L each exchange
follow Hgb
dc planning
-
-
Date of Service: November 04, 2024
CC / HPI / ROS
-
Chief Complaint:
ESRD
History of Present Illness:
PD in progress, no issues
Sodium low 131 stable
BP stable
Hgb stable 9.6 today
Review of Systems:
No chest pain or shortness of breath
no n/v
Labs
-
Labs:
WBC 9.1 10^3/uL (4.8-10.8) 11/04/24 04:00
RBC 2.90 10^6/uL (4.70-6.10) L 11/04/24 04:00
Hgb 9.6 g/dL (13.0-18.0) L 11/04/24 04:00
Hct 28.7 % (39.0-52.0) L 11/04/24 04:00
Plt Count 281 10^3/uL (130-400) 11/04/24 04:00
Sodium 131 mmol/L (135-145) L 11/04/24 04:00
Potassium 3.5 mmol/L (3.5-5.1) 11/04/24 04:00
Chloride 95 mmol/L (98-107) L 11/04/24 04:00
Carbon Dioxide 29 mmol/L (22-30) 11/04/24 04:00
BUN 26 mg/dl (9-20) H 11/04/24 04:00
Creatinine 7.2 mg/dL (0.7-1.3) H* 11/04/24 04:00
eGFR 7.21 11/04/24 04:00
Glucose 93 mg/dl (70-99) 11/04/24 04:00
Calcium 8.0 mg/dl (8.4-10.2) L 11/04/24 04:00
Albumin 2.5 g/dl (3.5-5.0) L 11/04/24 04:00
Physical Exam
-
Vital Signs:
Vital Signs
Temp Pulse Resp BP Pulse Ox
97.3 F 85 16 119/75 95
11/03/24 23:00 11/04/24 08:00 11/02/24 12:24 11/04/24 08:00 11/03/24 20:05
Cardiovascular:: Regular rate and rhythm
Respiratory:: Bilateral: Coarse
Lung Excursion:: Normal
Abdomen:: Nontender and Soft
Bowel Sounds:: Normal
Extremity Edema:: None: Bilateral:
--- NOTE | 2024-11-04 10:49 | PN.CDI ---
CDI
- -
CDI:
Physician Documentation Request
Admit Date: 10/29/24 02:10
Dear Doctor Joe
Progress notes include a diagnosis of GI bleeding-bright red rectal bleeding. Eliquis was held.
Please clarify if a relationship exist between these conditions:
Yes, GI/rectal bleeding is related to/associated with/due to/exacerbated by Eliquis .
No, GI/rectal bleeding is not related to/associated with/due to/exacerbated by Eliquis
Unable to determine
Use of terms such as suspected, likely, concern for, or probable (associated with a specific diagnosis that is being evaluated, monitored, or treated as if it exists) are acceptable and can be coded in the inpatient setting, when documented at the
time of discharge.
Thank you,
Laura Jorgensen RN BSN
CDI Specialist
tiger text
Please use your independent medical judgment in providing your response.
[2024-11-04] MEDS: MIRALAX PO ×2 (13:21→20:40)
--- NOTE | 2024-11-04 14:53 | W.PN.HOSP.TC ---
Today's Communication/Plan
-
�if hemoglobin remains stable on Eliquis and no further bleeding episodes, cleared for discharge tomorrow
Assessment / Plan
Assessment / Plan
A/P: Patient is a 79y M with PMH significant for ASCVD, ESRD on PD and A-Fib who presents to ED complaining of syncope / collapse at home.
Recurrent Syncope
Orthostatic Hypotension
-Ongoing orthostatic drop in blood pressure noted. Not sure if this is dysautonomia or secondary to blood loss and anemia. No arrhythmia noted on the radiation monitor. Transfuse PRBC and if still orthostatic start on midodrine. Patient says he
was using midodrine in the past but was discontinued because he was on antihypertensives.
- TSH does not support hypothyroidism. serum cortisol normal.
- Now off of all antihypertensive medications following prior hospitalizations.
-may need midodrine
Chronic Anemia of CKD
Possible chronic blood loss anemia
GI Bleeding-bright red rectal bleeding
History of hemorrhoidal bleeding and anemia
- Likely anemia of CKD and possibly hemorrhoidal related bleeding
- GI input noted. Patient declining endoscopic eval as he says he had a colonoscopy a year ago.
- With concern for hemorrhoidal bleeding will ask colorectal surgery if there is any role for hemorrhoidectomy
- Hold Eliquis acutely.
- Transfused 1 unit of PRBC 10/31 as H&H dropped to 6.9�responded well
� continues to refuse Scope - understands risks
-Restart Eliquis 11/03 and monitor�if hemoglobin remains stable and no further bleeding episodes, cleared for discharge tomorrow
ESRD on PD
- Continue with PD
- Nephrology evaluation for treatments during his hospital stay.
ASCVD
- Stable. No chest pain / dyspnea / etc.
- Continue ASA uninterrupted given carotid stent (08/2024).
Paroxysmal Atrial Fibrillation
Prolonged QT
- Stable. Continue amiodarone and monitor on telemetry.
- Avoid other QT prolonging medications.
- resume Eliquis
Benign Hypertension
- All BP medications have been discontinued during prior hospitalizations.
- Follow orthostatic signs and consider initiation of midodrine if needed to avoid symptomatic orthostatic hypotension.
Hypothyroidism
- Stable. Continue T4 replacement.
#Hypokalemia
-HD
#Hyponatremia
-HD
DVT Prophylaxis: Eliquis
Code Status: DNR
Anticipated Discharge: Within 24 hours
Subjective/Interval History
-
Date of Service: November 04, 2024
No acute events overnight
Objective Data
-
Labs:
Laboratory Results
11/04/24
04:00
WBC 9.1
Hgb 9.6 L
Hct 28.7 L
Plt Count 281
Sodium 131 L
Potassium 3.5
Chloride 95 L
Carbon Dioxide 29
BUN 26 H
Creatinine 7.2 H*
Glucose 93
Calcium 8.0 L
Total Bilirubin 0.3
AST 19
ALT 14
Alkaline Phosphatase 113
Vital Signs:
Vital Signs
Temp Pulse Resp BP Pulse Ox
98.6 F 85 16 119/75 95
11/04/24 11:41 11/04/24 08:00 11/02/24 12:24 11/04/24 08:00 11/04/24 13:04
I&O
11/03/24 11/04/24 11/05/24
06:59 06:59 06:59
Intake Total 840 / 840 820 / 820 240 / 240
Output Total 1500 / 1500 1200 / 1200 600 / 600
Balance -660 / -660 -380 / -380 -360 / -360
Review of Systems
-
History Source: Patient
All other systems: Not reviewed unless documented
Physical Exam
-
General: Comfortable
Respiratory: Clear to Auscultation and Non Labored Respirations; Negative Accessory Resp Muscle Use
Cardiac: Regular Rhythm and S1/S2
GI: Soft
Neuro: AO x 3
Psych: Calm
Data Reviewed
-
Diagnostic Radiology: Report Reviewed by me
Labs: Labs Reviewed by me
--- NOTE | 2024-11-04 16:00 | PTCARENOTE ---
Patient still reports some nausea but it is much improved. Tolerating advanced diet. Patient worked with PT today and ambulated in the halls. Assist x1 with rolling walker. Patient AAOX3, can make his needs known. Patient fall risk due to fall
at home prior to admission. Patient is using call [facility] and calling RN for assistance. PD as ordered by Nephrology.
--- NOTE | 2024-11-04 17:36 | CM ---
Patient with Hx ESRD on PD. Room air. Receiving IV Protonix. PT recommends SNF vs Home assist. OT recommends skilled rehab.
Plan home with [facility] and resumption caregivers.
--- NOTE | 2024-11-04 22:33 | PTCARENOTE ---
assumed care of patient. pt is AAOc3- able to make needs known. pt using BSCx1 at change of shift. pt did have a BM that was brown, but the water in the bowl was bloody. pt was able to eat 50% of dinner without issues. PD ordered q4- care ongoing.
[2024-11-05] VITALS (12 sets, daily range): BP systolic 114–139; BP diastolic 42–64; BMI 23.6
[2024-11-05] MEDS: GAVISCON LIQUID 15 ML PO ×2 (00:38→10:04)
[2024-11-05] MEDS: SYNTHROID 150 MCG PO (04:35)
[2024-11-05 04:57] LABS: Hematocrit 25.5 % (39.0-52.0); Hemoglobin 8.7 g/dL (13.0-18.0); Mean Corp Hgb Conc. 34.1 g/dL (33.0-37.0); Mean Corpuscular Hgb 33.5 pg (27.0-31.0); Mean Corpuscular Volume 98.1 fL (80.0-94.0); Mean Platelet Volume 9.3 fL (7.4-10.4); Platelet Count 268 10^3/uL (130-400); Red Cell Dist. Width 17.7 % (11.5-14.5); White Blood Cell Count 9.8 10^3/uL (4.8-10.8)
[2024-11-05 05:43] LABS: ALT (SGPT) 13 U/L (0-50); AST (SGOT) 17 U/L (17-59); Albumin 2.1 g/dl (3.5-5.0); Alkaline Phosphatase 106 U/L (38-126); Blood Urea Nitrogen 27 mg/dl (9-20); Calcium 7.8 mg/dl (8.4-10.2); Carbon Dioxide 30 mmol/L (22-30); Chloride 95 mmol/L (98-107); Estimated Creatinine Clearance 8 ml/min; Glucose 91 mg/dl (70-99); Potassium 3.4 mmol/L (3.5-5.1); Sodium 131 mmol/L (135-145); Total Bilirubin 0.4 mg/dl (0.2-1.3); Total Protein 4.2 g/dl (6.3-8.2); eGFR 7.59
--- NOTE | 2024-11-05 09:44 | PTCARENOTE ---
Assumed care of patient this AM. Patient had light brown soft stool on commode today. No signs of bleeding or blood in the stool. Hemoglobin 8.6 today. Patient complaining of mild nausea and gas pains. VS stable.
--- NOTE | 2024-11-05 09:52 | PN.CDI ---
CDI
- -
CDI:
Physician Documentation Request
Admit Date: 10/29/24 02:10
Dear Doctor Joe,
Patient presented to ED after syncopal episode and finding some blood in toilet.
11/01 Nursing notes 'Pt noted to have bright red blood per rectum in commode after having a moderate formed bm'
11/02,11/04 blood also noted in toilet by nursing
Hospitalist progress notes state 'chronic anemia of ckd, possible chronic blood loss anemia'
10/31 patient received 1 unit prbc
Based on the above, could you clarify, in your progress note, which of the following is the most likely type of anemia you are evaluating, monitoring and/or treating?
Acute blood loss anemia with baseline chronic anemia and possible chronic blood loss anemia
Chronic anemia of ckd with poss chronic blood loss anemia only.
Other
Use of terms such as suspected, likely, concern for, or probable (associated with a specific diagnosis that is being evaluated, monitored, or treated as if it exists) are acceptable and can be coded in the inpatient setting, when documented at the
time of discharge.
Thank you,
Laura Jorgensen RN, BSN
CDI Specialist
tiger text
Please use your independent medical judgment in providing your response.
[2024-11-05] MEDS: LIPITOR 40 MG PO (10:04)
[2024-11-05] MEDS: SENOKOT-S 1 TABLET PO ×2 (10:04→22:23)
[2024-11-05] MEDS: TUMS CHEWABLE TABLET 400 MG PO (10:04)
[2024-11-05] MEDS: PROTONIX IV 40 MG IV ×2 (10:05→22:23)
[2024-11-05] MEDS: NSS (PRESERVATIVE FREE) 10 ML IV ×2 (10:05→22:23)
[2024-11-05] MEDS: B COMPLEX w/VITAMIN C 1 CAPLET PO (10:05)
[2024-11-05] MEDS: LOW STRENGTH ASPIRIN 81 MG PO (10:05)
[2024-11-05] MEDS: PACERONE 200 MG PO (10:06)
[2024-11-05] MEDS: MIRALAX PO ×2 (10:07→22:22)
--- NOTE | 2024-11-05 12:51 | CM ---
Addendum entered by Luzma Strickland RN 11/05/24 14:41:
Received phone call from Il[facility] (ph [phone], fax [phone]); informed her patient is not ready for d/c and will be here over the weekend.
Plan home with [facility] and resumption caregivers.
Original Note:
Patient with Hx ESRD on PD. Room air. Receiving IV Protonix. PT recommends SNF vs Home assist. OT recommends skilled rehab.
Patient accepted by [facility].
Message from Dr Diaz; patient bled last night, will need to monitor, he's off of Eliquis again
Spoke with Mckenna Dhaliwal; plan for GI procedure 11/08.
Plan home with [facility] and resumption caregivers.
[2024-11-05 13:06] LABS: Hemoglobin 8.9 g/dL (13.0-18.0)
[2024-11-05] MEDS: ELIQUIS PO (13:39)
--- NOTE | 2024-11-05 14:28 | W.PN.NEPH.PH ---
Today's Communication / Plan
-
replace k and cont PD
Assessment/Plan
-
Impression:
Syncope
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
Left carotid stenosis
End-stage renal disease on peritoneal dialysis
Hypertension
Paroxysmal atrial fibrillation
Hyperphosphatemia
Anemia
History of CABG
h/o bilat CEA at [employer]
TCAR 08/11/2024
Plan:
hemodynamically stable
cont PD 1.5% Q4h exchanges, 2 L each exchange
follow Hgb, bleeding again on 11/04
replace k
-
-
Date of Service: November 05, 2024
CC / HPI / ROS
-
Chief Complaint:
ESRD
History of Present Illness:
PD in progress, no issues
Sodium low 131 stable, k low 3.4
BP stable
Hgb down 8.9m bleeding on 11/04
Review of Systems:
No chest pain or shortness of breath
no n/v
Labs
-
Labs:
WBC 9.8 10^3/uL (4.8-10.8) 11/05/24 04:40
RBC 2.60 10^6/uL (4.70-6.10) L 11/05/24 04:40
Hgb 8.9 g/dL (13.0-18.0) L 11/05/24 12:57
Hct 25.5 % (39.0-52.0) L 11/05/24 04:40
Plt Count 268 10^3/uL (130-400) 11/05/24 04:40
Sodium 131 mmol/L (135-145) L 11/05/24 04:40
Potassium 3.4 mmol/L (3.5-5.1) L 11/05/24 04:40
Chloride 95 mmol/L (98-107) L 11/05/24 04:40
Carbon Dioxide 30 mmol/L (22-30) 11/05/24 04:40
BUN 27 mg/dl (9-20) H 11/05/24 04:40
Creatinine 6.9 mg/dL (0.7-1.3) H* 11/05/24 04:40
eGFR 7.59 11/05/24 04:40
Glucose 91 mg/dl (70-99) 11/05/24 04:40
Calcium 7.8 mg/dl (8.4-10.2) L 11/05/24 04:40
Albumin 2.1 g/dl (3.5-5.0) L 11/05/24 04:40
Physical Exam
-
Vital Signs:
Vital Signs
Temp Pulse Resp BP Pulse Ox
98.4 F 76 16 122/51 96
11/05/24 07:03 11/05/24 12:00 11/02/24 12:24 11/05/24 12:00 11/05/24 10:01
Cardiovascular:: Regular rate and rhythm
Respiratory:: Bilateral: CTA
Lung Excursion:: Normal
Abdomen:: Nontender and Soft
Extremity Edema:: None: Bilateral:
Gavin Catheter: No
[2024-11-05] MEDS: KCL 40 MEQ PO (15:13)
--- NOTE | 2024-11-05 15:44 | W.PN.HOSP.TC ---
Addendum entered and electronically signed by Srini Diaz MD 11/05/24 17:16:
Yes, GI/rectal bleeding is related to/associated with/due to/exacerbated by Eliquis .
Acute blood loss anemia with baseline chronic anemia and possible chronic blood loss anemia
Original Note:
Today's Communication/Plan
-
re-engaged gi for scope
monitor hgb
stop eliquis
Assessment / Plan
Assessment / Plan
A/P: Patient is a 79y M with PMH significant for ASCVD, ESRD on PD and A-Fib who presents to ED complaining of syncope / collapse at home.
Recurrent Syncope
Orthostatic Hypotension
-Ongoing orthostatic drop in blood pressure noted. Not sure if this is dysautonomia or secondary to blood loss and anemia. No arrhythmia noted on the potline monitor. Transfuse PRBC and if still orthostatic start on midodrine. Patient says he
was using midodrine in the past but was discontinued because he was on antihypertensives.
- TSH does not support hypothyroidism. serum cortisol normal.
- Now off of all antihypertensive medications following prior hospitalizations.
-may need midodrine
Chronic Anemia of CKD
Possible chronic blood loss anemia
GI Bleeding-bright red rectal bleeding
History of hemorrhoidal bleeding and anemia
- Likely anemia of CKD and possibly hemorrhoidal related bleeding
- GI input noted. Patient declining endoscopic eval as he says he had a colonoscopy a year ago.
- With concern for hemorrhoidal bleeding will ask colorectal surgery if there is any role for hemorrhoidectomy
- Hold Eliquis acutely.
- Transfused 1 unit of PRBC 10/31 as H&H dropped to 6.9�responded well
� now agreeable to scope
-Engaged GI as having bleeding once restarting eliquis
ESRD on PD
- Continue with PD
- Nephrology evaluation for treatments during his hospital stay.
ASCVD
- Stable. No chest pain / dyspnea / etc.
- Continue ASA uninterrupted given carotid stent (08/2024).
Paroxysmal Atrial Fibrillation
Prolonged QT
- Stable. Continue amiodarone and monitor on telemetry.
- Avoid other QT prolonging medications.
- hold Eliquis
Benign Hypertension
- All BP medications have been discontinued during prior hospitalizations.
- Follow orthostatic signs and consider initiation of midodrine if needed to avoid symptomatic orthostatic hypotension.
Hypothyroidism
- Stable. Continue T4 replacement.
#Hypokalemia
-HD
#Hyponatremia
-HD
DVT Prophylaxis: Eliquis
Code Status: DNR
Anticipated Discharge: > 48 hours
Subjective/Interval History
-
Date of Service: November 05, 2024
blood in the toilet again yest night
Objective Data
-
Labs:
Laboratory Results
11/05/24 11/05/24
04:40 12:57
WBC 9.8
Hgb 8.7 L 8.9 L
Hct 25.5 L
Plt Count 268
Sodium 131 L
Potassium 3.4 L
Chloride 95 L
Carbon Dioxide 30
BUN 27 H
Creatinine 6.9 H*
Glucose 91
Calcium 7.8 L
Total Bilirubin 0.4
AST 17
ALT 13
Alkaline Phosphatase 106
Vital Signs:
Vital Signs
Temp Pulse Resp BP Pulse Ox
98.5 F 76 16 122/51 96
11/05/24 15:17 11/05/24 12:00 11/02/24 12:24 11/05/24 12:00 11/05/24 10:01
I&O
11/04/24 11/05/24 11/06/24
06:59 06:59 06:59
Intake Total 820 / 820 1215 / 1215
Output Total 1200 / 1200 1500 / 1500 100 / 100
Balance -380 / -380 -285 / -285 -100 / -100
Review of Systems
-
History Source: Patient
All other systems: Not reviewed unless documented
Physical Exam
-
General: Comfortable
Respiratory: Clear to Auscultation and Non Labored Respirations; Negative Accessory Resp Muscle Use
Cardiac: Regular Rhythm and S1/S2
GI: Soft
Neuro: AO x 3
Psych: Calm
Data Reviewed
-
Diagnostic Radiology: Report Reviewed by me
Labs: Labs Reviewed by me
--- NOTE | 2024-11-05 18:02 | PTCARENOTE ---
Patient eliquis on hold as per MD order. PD Q4 exchanges as per Nephrology. Nausea better today. Patient feels tired today. VS stable.
--- NOTE | 2024-11-05 23:50 | PTCARENOTE ---
Pt has a new onset of a dry non productive cough that he stated started earlier today. Lung sounds diminished throughout. 98% on RA. Pt denies SOB. Notified RACHEL Meeks. Rx received for PRN Robitussin (see MAR) and CXR.
[2024-11-06] VITALS (13 sets, daily range): BP systolic 111–149; BP diastolic 49–82; BMI 22.7
[2024-11-06] MEDS: ROBITUSSIN 100 MG PO ×5 (00:40→22:09)
[2024-11-06] MEDS: SYNTHROID 150 MCG PO (05:03)
[2024-11-06 05:13] LABS: Hematocrit 25.6 % (39.0-52.0); Hemoglobin 8.7 g/dL (13.0-18.0); Mean Corpuscular Hgb 33.5 pg (27.0-31.0); Mean Corpuscular Volume 98.5 fL (80.0-94.0); Mean Platelet Volume 9.2 fL (7.4-10.4); Platelet Count 294 10^3/uL (130-400); Red Cell Dist. Width 17.3 % (11.5-14.5)
[2024-11-06 05:55] LABS: ALT (SGPT) 13 U/L (0-50); AST (SGOT) 18 U/L (17-59); Albumin 2.3 g/dl (3.5-5.0); Alkaline Phosphatase 95 U/L (38-126); Blood Urea Nitrogen 25 mg/dl (9-20); Calcium 7.8 mg/dl (8.4-10.2); Carbon Dioxide 29 mmol/L (22-30); Chloride 95 mmol/L (98-107); Estimated Creatinine Clearance 8 ml/min; Glucose 95 mg/dl (70-99); Potassium 3.9 mmol/L (3.5-5.1); Sodium 130 mmol/L (135-145); Total Bilirubin 0.5 mg/dl (0.2-1.3); Total Protein 4.5 g/dl (6.3-8.2); eGFR 7.59
[2024-11-06] MEDS: PROTONIX IV 40 MG IV ×2 (08:17→21:51)
[2024-11-06] MEDS: LIPITOR 40 MG PO (08:17)
[2024-11-06] MEDS: B COMPLEX w/VITAMIN C 1 CAPLET PO (08:17)
[2024-11-06] MEDS: NSS (PRESERVATIVE FREE) 10 ML IV ×2 (08:17→21:51)
[2024-11-06] MEDS: PACERONE 200 MG PO (08:17)
[2024-11-06] MEDS: LOW STRENGTH ASPIRIN 81 MG PO (08:18)
[2024-11-06] MEDS: MIRALAX PO ×2 (08:18→21:51)
[2024-11-06] MEDS: SENOKOT-S 1 TABLET PO ×2 (08:18→21:51)
--- NOTE | 2024-11-06 08:41 | PTCARENOTE ---
Patient received from security shift manager. Patient resting comfortably in bed. AAO, VSS. No events noted overnight. No complaints of pain at this time. Receiving PD Q4. No IVF through IV. Heme test stools. No tests scheduled at this time. Call molina
in reach.
--- NOTE | 2024-11-06 10:02 | W.PN.GI.CBS2 ---
Today's Communication / Plan
-
-- Continue diet, okay to resume Eliquis if indicated. Please call us back if he has any significant bleeding
Assessment / Plan
-
79-year-old male with past medical history of left occipital stroke with severe left carotid stenosis, CAD, hypertension, hyperlipidemia, hypothyroidism, end-stage renal failure on peritoneal dialysis, anemia of chronic disease, A-fib on Eliquis,
last dose 2 days ago, colon polyp with recent fall on 10/26/2024 while in the bathroom hitting his right rib cage. Anticoagulation was stopped at that time. Prior to that he was having intermittent episodes of bright red blood per rectum. Patient
states that he felt this was secondary to his hemorrhoids that he has had on and off periodically. Prior to that he had 2 days of diarrhea. He did have some mild rectal bleeding associated with that as well. Yesterday the patient was on the
toilet trying to have a bowel movement. He felt nausea with dizziness. He had near syncope. There was some blood in the toilet. He was brought to the emergency room further evaluation. He has already been off Eliquis for 2 days. Patient
initially declined rectal exam however later did allow emergency room physician to perform rectal exam. There was brown stool. There was old blood dried in rectal area. No obvious external hemorrhoids with bleeding. No further episodes of
bleeding while in the emergency room. Patient tolerating clear liquid diet. No abdominal pain. Patient's last colonoscopy was less than 1 year ago. At that time he had 2 colonoscopies 1 in October 2019 for the second in December 2023 for removal of
polyp done at [facility] in [place]. Patient states that the physician states he required no further colonoscopies. Records unavailable to us. Patient has prior history of hemorrhoidectomy in the past with bleeding hemorrhoids subsequent to
this. At the present time the patient denies any fevers, chills, nausea, vomiting, melena, dysphagia or odynophagia. No early satiety or unintentional weight loss. WBC 13.6, hemoglobin 7.8 down from 8.7, hematocrit 24.3, platelets 262. He did
receive 1 L of normal saline during this time. Patient baseline hemoglobin in the mid 8-9 range.
Impression:
Syncope
Fall
Rectal bleeding
-- declined rectal exam on admission and repeat eval 11/02
hx hemorrhoidectomy
hx polyps with colonoscopy 2023
Plan:
reviewed with nursing no signs of active bleeding and stools are now soft
cont bowel regiment
baseline hbg around 8 range with CKD, history of hemorrhoidectomy
last colonoscopy 2023 at [facility]
OP follow up at [facility]'
plan to resume anticoagulation and monitor
cont ASA
11/06/24 -no further bleeding but he is off his Eliquis
Would restart the Eliquis and if has any further bright red blood I told him we could do a flexible sigmoidoscopy on Eliquis to find out the etiology
If he is clinically significant bleeding with any hypotension or change in vital signs would need to hold the Eliquis until etiology found
Message sent to hospitalist
Subjective
Subjective
Date of Service: November 06, 2024
Patient denies any constipation or straining. Has had no rectal bleeding in a couple of days. States he had a significant time of constipation over the last end of 2023 which is improved since starting senna. Has a history of hemorrhoidectomy
Objective
Data Reviewed
Laboratory Data:
Laboratory Results
11/06/24 04:57
11/06/24 04:57
Laboratory Results
Total Bilirubin 0.5 mg/dl (0.2-1.3) 11/06/24 04:57
AST 18 U/L (17-59) 11/06/24 04:57
ALT 13 U/L (0-50) 11/06/24 04:57
Alkaline Phosphatase 95 U/L (38-126) 11/06/24 04:57
Vital Signs and I&O:
Vital Signs
Temp Pulse Resp BP Pulse Ox
98.6 F 91 16 126/75 98
11/06/24 04:01 11/06/24 08:17 11/02/24 12:24 11/06/24 08:17 11/06/24 03:00
I&O
11/05/24 11/06/24 11/07/24
06:59 06:59 06:59
Intake Total 1215 / 1215 1050 / 1050 100 / 100
Output Total 1500 / 1500 700 / 700
Balance -285 / -285 350 / 350 100 / 100
Physical Exam
Physical Exam
HEENT: Anicteric
GI: Soft, Non Distended, Non Tender and Other (Peritoneal dialysis catheter present)
Extremities: No Edema
Neuro: Non Focal
--- NOTE | 2024-11-06 13:02 | W.PN.NEPH.PH ---
Today's Communication / Plan
-
follow labs and cont PD
Assessment/Plan
-
Impression:
Syncope
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
Left carotid stenosis
End-stage renal disease on peritoneal dialysis
Hypertension
Paroxysmal atrial fibrillation
Hyperphosphatemia
Anemia
History of CABG
h/o bilat CEA at [place]
TCAR 08/11/2024
Plan:
hemodynamically stable
cont PD 1.5% Q4h exchanges, 2 L each exchange
PD sheets noted, almost even balance
follow Hgb, bleeding again on 11/04, GI follows
mild orhto vitals seem chronic, no anti HTN meds
-
-
Date of Service: November 06, 2024
CC / HPI / ROS
-
Chief Complaint:
ESRD
History of Present Illness:
PD in progress, no issues
Sodium low 130 stable, k betetr 3.9
BP stable
Hgb down 8.7 bleeding on 11/04
Review of Systems:
No chest pain or shortness of breath
no n/v
Labs
-
Labs:
WBC 10.0 10^3/uL (4.8-10.8) 11/06/24 04:57
RBC 2.60 10^6/uL (4.70-6.10) L 11/06/24 04:57
Hgb 8.7 g/dL (13.0-18.0) L 11/06/24 04:57
Hct 25.6 % (39.0-52.0) L 11/06/24 04:57
Plt Count 294 10^3/uL (130-400) 11/06/24 04:57
Sodium 130 mmol/L (135-145) L 11/06/24 04:57
Potassium 3.9 mmol/L (3.5-5.1) 11/06/24 04:57
Chloride 95 mmol/L (98-107) L 11/06/24 04:57
Carbon Dioxide 29 mmol/L (22-30) 11/06/24 04:57
BUN 25 mg/dl (9-20) H 11/06/24 04:57
Creatinine 6.9 mg/dL (0.7-1.3) H* 11/06/24 04:57
eGFR 7.59 11/06/24 04:57
Glucose 95 mg/dl (70-99) 11/06/24 04:57
Calcium 7.8 mg/dl (8.4-10.2) L 11/06/24 04:57
Albumin 2.3 g/dl (3.5-5.0) L 11/06/24 04:57
Physical Exam
-
Vital Signs:
Vital Signs
Temp Pulse Resp BP Pulse Ox
98.4 F 91 16 126/75 98
11/06/24 07:42 11/06/24 08:17 11/02/24 12:24 11/06/24 08:17 11/06/24 03:00
Cardiovascular:: Regular rate and rhythm
Respiratory:: Bilateral: CTA
Lung Excursion:: Normal
Abdomen:: Nontender and Soft
Extremity Edema:: None: Bilateral:
Gavin Catheter: No
--- NOTE | 2024-11-06 15:04 | W.PN.HOSP.TC ---
Today's Communication/Plan
-
restart eliquis
monitor hgb, stool
Assessment / Plan
Assessment / Plan
A/P: Patient is a 79y M with PMH significant for ASCVD, ESRD on PD and A-Fib who presents to ED complaining of syncope / collapse at home.
Recurrent Syncope
Orthostatic Hypotension
-Ongoing orthostatic drop in blood pressure noted. Not sure if this is dysautonomia or secondary to blood loss and anemia. No arrhythmia noted on the engine monitor. Transfuse PRBC and if still orthostatic start on midodrine. Patient says he
was using midodrine in the past but was discontinued because he was on antihypertensives.
- TSH does not support hypothyroidism. serum cortisol normal.
- Now off of all antihypertensive medications following prior hospitalizations.
-has stopped midodrine in the past due to hypertension - ctm
Chronic Anemia of CKD
Possible chronic blood loss anemia
GI Bleeding-bright red rectal bleeding
History of hemorrhoidal bleeding and anemia
- Likely anemia of CKD and possibly hemorrhoidal related bleeding
- GI input noted. Patient declining endoscopic eval as he says he had a colonoscopy a year ago.
- With concern for hemorrhoidal bleeding will ask colorectal surgery if there is any role for hemorrhoidectomy
- Hold Eliquis acutely.
- Transfused 1 unit of PRBC 10/31 as H&H dropped to 6.9�responded well
� now agreeable to scope/flex sig
-restart eliquis and monitor -
ESRD on PD
- Continue with PD
- Nephrology evaluation for treatments during his hospital stay.
ASCVD
- Stable. No chest pain / dyspnea / etc.
- Continue ASA uninterrupted given carotid stent (08/2024).
Paroxysmal Atrial Fibrillation
Prolonged QT
- Stable. Continue amiodarone and monitor on telemetry.
- Avoid other QT prolonging medications.
- resume eliquis and monitor
Benign Hypertension
- All BP medications have been discontinued during prior hospitalizations.
- Follow orthostatic signs and consider initiation of midodrine if needed to avoid symptomatic orthostatic hypotension.
Hypothyroidism
- Stable. Continue T4 replacement.
#Hypokalemia
-HD
#Hyponatremia
-HD
DVT Prophylaxis: Eliquis
Code Status: DNR
Anticipated Discharge: > 48 hours
Subjective/Interval History
-
Date of Service: November 06, 2024
no acute events
Objective Data
-
Labs:
Laboratory Results
11/06/24
04:57
WBC 10.0
Hgb 8.7 L
Hct 25.6 L
Plt Count 294
Sodium 130 L
Potassium 3.9
Chloride 95 L
Carbon Dioxide 29
BUN 25 H
Creatinine 6.9 H*
Glucose 95
Calcium 7.8 L
Total Bilirubin 0.5
AST 18
ALT 13
Alkaline Phosphatase 95
Vital Signs:
Vital Signs
Temp Pulse Resp BP Pulse Ox
98.4 F 91 16 126/75 96
11/06/24 07:42 11/06/24 08:17 11/02/24 12:24 11/06/24 08:17 11/06/24 08:09
I&O
11/05/24 11/06/24 11/07/24
06:59 06:59 06:59
Intake Total 1215 / 1215 1050 / 1050 100 / 100
Output Total 1500 / 1500 700 / 700 200 / 200
Balance -285 / -285 350 / 350 -100 / -100
Review of Systems
-
History Source: Patient
All other systems: Not reviewed unless documented
Physical Exam
-
General: Comfortable
Respiratory: Clear to Auscultation and Non Labored Respirations; Negative Accessory Resp Muscle Use
Cardiac: Regular Rhythm and S1/S2
GI: Soft
Neuro: AO x 3
Psych: Calm
[2024-11-06] MEDS: ELIQUIS 2.5 MG PO (21:51)
--- NOTE | 2024-11-06 23:00 | PTCARENOTE ---
Received pt from day shift RN. Pt aaox3. NSR on monitor, VSS. PD Q4. Pt c/o a dry nonproductive dry cough, PRN Robitussin admin (see MAR). Pt resting in bed with call molina in reach.
[2024-11-07] VITALS (10 sets, daily range): BP systolic 107–141; BP diastolic 37–106; BMI 22.6
[2024-11-07 03:51] LABS: Hematocrit 26.9 % (39.0-52.0); Hemoglobin 8.9 g/dL (13.0-18.0); Mean Corp Hgb Conc. 33.1 g/dL (33.0-37.0); Mean Corpuscular Hgb 32.5 pg (27.0-31.0); Mean Corpuscular Volume 98.2 fL (80.0-94.0); Mean Platelet Volume 9.2 fL (7.4-10.4); Platelet Count 311 10^3/uL (130-400); Red Blood Cell Count 2.74 10^6/uL (4.70-6.10); Red Cell Dist. Width 17.5 % (11.5-14.5); White Blood Cell Count 9.1 10^3/uL (4.8-10.8)
[2024-11-07 04:31] LABS: ALT (SGPT) 15 U/L (0-50); AST (SGOT) 24 U/L (17-59); Albumin 2.7 g/dl (3.5-5.0); Alkaline Phosphatase 94 U/L (38-126); Blood Urea Nitrogen 27 mg/dl (9-20); Calcium 7.8 mg/dl (8.4-10.2); Carbon Dioxide 26 mmol/L (22-30); Chloride 95 mmol/L (98-107); Estimated Creatinine Clearance 8 ml/min; Glucose 96 mg/dl (70-99); Potassium 3.9 mmol/L (3.5-5.1); Sodium 132 mmol/L (135-145); Total Bilirubin 0.5 mg/dl (0.2-1.3); Total Protein 5.2 g/dl (6.3-8.2); eGFR 7.46
[2024-11-07] MEDS: SYNTHROID 150 MCG PO (05:01)
[2024-11-07] MEDS: MIRALAX PO ×3 (07:39→21:48)
[2024-11-07] MEDS: LOW STRENGTH ASPIRIN 81 MG PO (07:39)
[2024-11-07] MEDS: PACERONE 200 MG PO (07:39)
[2024-11-07] MEDS: ELIQUIS 2.5 MG PO ×2 (07:39→21:47)
[2024-11-07] MEDS: SENOKOT-S 1 TABLET PO ×2 (07:39→21:47)
[2024-11-07] MEDS: NSS (PRESERVATIVE FREE) 10 ML IV ×2 (07:40→21:48)
[2024-11-07] MEDS: PROTONIX IV 40 MG IV ×2 (07:40→21:48)
[2024-11-07] MEDS: LIPITOR 40 MG PO (07:40)
[2024-11-07] MEDS: B COMPLEX w/VITAMIN C 1 CAPLET PO (07:40)
[2024-11-07] MEDS: ROBITUSSIN 100 MG PO ×2 (08:14→21:46)
--- NOTE | 2024-11-07 14:15 | W.PN.NEPH.PH ---
Today's Communication / Plan
-
cont PD, follow h/h
Assessment/Plan
-
Impression:
Syncope
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
Left carotid stenosis
End-stage renal disease on peritoneal dialysis
Hypertension
Paroxysmal atrial fibrillation
Hyperphosphatemia
Anemia
History of CABG
h/o bilat CEA at [place]
TCAR 08/11/2024
Plan:
hemodynamically stable
cont PD 1.5% Q4h exchanges, 2 L each exchange
PD sheets noted, mild net neg balance
follow Hgb, bleeding again , GI follows -sigmoidoscopy tomorrow
mild orhto vitals seem chronic, no anti HTN meds
-
-
Date of Service: November 07, 2024
CC / HPI / ROS
-
Chief Complaint:
ESRD
History of Present Illness:
PD in progress, no issues
Sodium low 132 better
BP stable
Hgb stable 8.9
Review of Systems:
No chest pain or shortness of breath
no n/v
some rectal bleeding today
Labs
-
Labs:
WBC 9.1 10^3/uL (4.8-10.8) 11/07/24 03:00
RBC 2.74 10^6/uL (4.70-6.10) L 11/07/24 03:00
Hgb 8.9 g/dL (13.0-18.0) L 11/07/24 03:00
Hct 26.9 % (39.0-52.0) L 11/07/24 03:00
Plt Count 311 10^3/uL (130-400) 11/07/24 03:00
Sodium 132 mmol/L (135-145) L 11/07/24 03:00
Potassium 3.9 mmol/L (3.5-5.1) 11/07/24 03:00
Chloride 95 mmol/L (98-107) L 11/07/24 03:00
Carbon Dioxide 26 mmol/L (22-30) 11/07/24 03:00
BUN 27 mg/dl (9-20) H 11/07/24 03:00
Creatinine 7.0 mg/dL (0.7-1.3) H* 11/07/24 03:00
eGFR 7.46 11/07/24 03:00
Glucose 96 mg/dl (70-99) 11/07/24 03:00
Calcium 7.8 mg/dl (8.4-10.2) L 11/07/24 03:00
Albumin 2.7 g/dl (3.5-5.0) L 11/07/24 03:00
Physical Exam
-
Vital Signs:
Vital Signs
Temp Pulse Resp BP Pulse Ox
98.5 F 74 16 130/64 98
11/07/24 11:32 11/07/24 12:00 11/02/24 12:24 11/07/24 12:00 11/07/24 00:33
Cardiovascular:: Regular rate and rhythm
Respiratory:: Bilateral: CTA
Lung Excursion:: Normal
Abdomen:: Nontender and Soft
Extremity Edema:: None: Bilateral:
Gavin Catheter: No
--- NOTE | 2024-11-07 14:42 | W.PN.HOSP.TC ---
Today's Communication/Plan
-
monitor hgb
anticipate flex sig tomorrow
Assessment / Plan
Assessment / Plan
A/P: Patient is a 79y M with PMH significant for ASCVD, ESRD on PD and A-Fib who presents to ED complaining of syncope / collapse at home.
Recurrent Syncope
Orthostatic Hypotension
-Ongoing orthostatic drop in blood pressure noted. Not sure if this is dysautonomia or secondary to blood loss and anemia. No arrhythmia noted on the cardiac nurse specialist. Transfuse PRBC and if still orthostatic start on midodrine. Patient says he
was using midodrine in the past but was discontinued because he was on antihypertensives.
- TSH does not support hypothyroidism. serum cortisol normal.
- Now off of all antihypertensive medications following prior hospitalizations.
-has stopped midodrine in the past due to hypertension - ctm
Chronic Anemia of CKD
Possible chronic blood loss anemia
GI Bleeding-bright red rectal bleeding
History of hemorrhoidal bleeding and anemia
- Likely anemia of CKD and possibly hemorrhoidal related bleeding
- GI input noted. Patient declining endoscopic eval as he says he had a colonoscopy a year ago.
- With concern for hemorrhoidal bleeding will ask colorectal surgery if there is any role for hemorrhoidectomy
- Hold Eliquis acutely.
- Transfused 1 unit of PRBC 10/31 as H&H dropped to 6.9�responded well
� now agreeable to scope/flex sig�anticipate tomorrow
-restart eliquis and monitor -
ESRD on PD
- Continue with PD
- Nephrology evaluation for treatments during his hospital stay.
ASCVD
- Stable. No chest pain / dyspnea / etc.
- Continue ASA uninterrupted given carotid stent (08/2024).
Paroxysmal Atrial Fibrillation
Prolonged QT
- Stable. Continue amiodarone and monitor on telemetry.
- Avoid other QT prolonging medications.
- resume eliquis and monitor
Benign Hypertension
- All BP medications have been discontinued during prior hospitalizations.
- Follow orthostatic signs and consider initiation of midodrine if needed to avoid symptomatic orthostatic hypotension.
Hypothyroidism
- Stable. Continue T4 replacement.
#Hypokalemia
-HD
#Hyponatremia
-HD
DVT Prophylaxis: Eliquis
Code Status: DNR
Anticipated Discharge: 24 - 48 hours
Subjective/Interval History
-
Date of Service: November 07, 2024
Still having blood in the toilet
Objective Data
-
Labs:
Laboratory Results
11/07/24
03:00
WBC 9.1
Hgb 8.9 L
Hct 26.9 L
Plt Count 311
Sodium 132 L
Potassium 3.9
Chloride 95 L
Carbon Dioxide 26
BUN 27 H
Creatinine 7.0 H*
Glucose 96
Calcium 7.8 L
Total Bilirubin 0.5
AST 24
ALT 15
Alkaline Phosphatase 94
Vital Signs:
Vital Signs
Temp Pulse Resp BP Pulse Ox
98.5 F 74 16 130/64 98
11/07/24 11:32 11/07/24 12:00 11/02/24 12:24 11/07/24 12:00 11/07/24 00:33
I&O
11/06/24 11/07/24 11/08/24
06:59 06:59 06:59
Intake Total 1050 / 1050 580 / 580 180 / 180
Output Total 700 / 700 900 / 900 600 / 600
Balance 350 / 350 -320 / -320 -420 / -420
Review of Systems
-
History Source: Patient
All other systems: Not reviewed unless documented
Physical Exam
-
General: Comfortable
Respiratory: Clear to Auscultation and Non Labored Respirations; Negative Accessory Resp Muscle Use
Cardiac: Regular Rhythm and S1/S2
GI: Soft
Neuro: AO x 3
Psych: Calm
Data Reviewed
-
Diagnostic Radiology: Report Reviewed by me
Labs: Labs Reviewed by me
--- NOTE | 2024-11-07 15:49 | W.PN.UPDATE ---
Update Note
Progress Note Update
called by the hospitalist that after restarting the Eliquis patient was having BRB in the toilet
Plan for flexible sigmoidoscopy tomorrow.
Will discuss with patient if he needs sedation or not.
NPO in the morning, ok for meds with sip of water.
[2024-11-08] VITALS: BP 142/53
[2024-11-08] MEDS: TYLENOL 650 MG PO ×2 (02:36→10:45)
--- NOTE | 2024-11-08 04:00 | PTCARENOTE ---
Assumed care of pt at change of shift. Pt aaox3. NSR on monitor, VSS. PD Q4. Pt c/o 04/14 aching pain on his right side near his ribs. This RN offered pt PRN Dilaudid he has Rx'd for severe pain. Pt requested Tylenol (see MAR ). Pt resting in bed
with call molina in reach.
[2024-11-08] MEDS: SYNTHROID 150 MCG PO (04:24)
[2024-11-08 04:30] VITALS: BMI 22.7
[2024-11-08 06:53] LABS: Hematocrit 26.1 % (39.0-52.0); Hemoglobin 8.5 g/dL (13.0-18.0); Mean Corp Hgb Conc. 32.6 g/dL (33.0-37.0); Mean Corpuscular Hgb 32.3 pg (27.0-31.0); Mean Corpuscular Volume 99.2 fL (80.0-94.0); Mean Platelet Volume 9.6 fL (7.4-10.4); Platelet Count 327 10^3/uL (130-400); Red Blood Cell Count 2.63 10^6/uL (4.70-6.10); Red Cell Dist. Width 16.7 % (11.5-14.5); White Blood Cell Count 8.6 10^3/uL (4.8-10.8)
[2024-11-08 07:17] LABS: ALT (SGPT) 13 U/L (0-50); AST (SGOT) 22 U/L (17-59); Albumin 2.3 g/dl (3.5-5.0); Alkaline Phosphatase 110 U/L (38-126); Blood Urea Nitrogen 27 mg/dl (9-20); Calcium 7.5 mg/dl (8.4-10.2); Carbon Dioxide 28 mmol/L (22-30); Chloride 93 mmol/L (98-107); Estimated Creatinine Clearance 8 ml/min; Glucose 79 mg/dl (70-99); Potassium 3.5 mmol/L (3.5-5.1); Sodium 130 mmol/L (135-145); Total Bilirubin 0.5 mg/dl (0.2-1.3); Total Protein 4.4 g/dl (6.3-8.2); eGFR 7.59
[2024-11-08] MEDS: LIPITOR 40 MG PO (08:10)
[2024-11-08] MEDS: SENOKOT-S 1 TABLET PO ×2 (08:10→20:38)
[2024-11-08] MEDS: B COMPLEX w/VITAMIN C 1 CAPLET PO (08:10)
[2024-11-08] MEDS: MIRALAX 17 GRAMS PO ×2 (08:10→20:37)
[2024-11-08] MEDS: ELIQUIS 2.5 MG PO (08:10)
[2024-11-08] MEDS: PACERONE 200 MG PO (08:10)
[2024-11-08] MEDS: LOW STRENGTH ASPIRIN 81 MG PO (08:10)
[2024-11-08 08:11] VITALS: BP 153/56
[2024-11-08] MEDS: NSS (PRESERVATIVE FREE) 10 ML IV ×2 (08:12→20:37)
[2024-11-08] MEDS: PROTONIX IV 40 MG IV ×2 (08:12→20:37)
[2024-11-08] MEDS: ROBITUSSIN 100 MG PO (08:15)
--- NOTE | 2024-11-08 08:16 | W.PN.HOSP.TC ---
Today's Communication/Plan
-
see A/P
Assessment / Plan
Assessment / Plan
Patient is a 79 yo M with PMH significant for ASCVD, ESRD on PD and A-Fib who presented to complaining of syncope / collapse at home.
A/P:
# Recurrent Syncope
# Orthostatic Hypotension
# Fall with R rib pain, without rib fracture
Pain control with Tylenol, lidocaine patch x2
Ongoing orthostatic drop in blood pressure noted. Not sure if this is dysautonomia or secondary to blood loss and anemia. No arrhythmia noted on the front desk monitor.
TSH 0.28, FT4 2.8, cont PLUG DRILL OPERATOR Synthroid
Random cortisol level 12.8.
Now off all antihypertensive medications
Midodrine was started, now off due to hypertension
Consider repeat orthostatic VS
# Chronic Anemia of CKD
# Possible chronic blood loss anemia
# GI Bleeding-bright red rectal bleeding
# History of hemorrhoidal bleeding and anemia
Likely anemia of CKD and possibly hemorrhoidal related bleeding
Eliquis held and now resumed
Transfused 1 unit of PRBC 10/31 as H&H dropped to 6.9� responded well
Pt now agreeable to scope/flex sig� anticipate 11/08
restarted Eliquis and monitor
GI on board
# ESRD on PD
Continue with PD
Nephrology evaluation for treatments during his hospital stay.
# ASCVD, stable.
No chest pain / dyspnea / etc.
Continue ASA uninterrupted given carotid stent (08/2024).
# Paroxysmal Atrial Fibrillation
# Prolonged QT
Stable. Continue amiodarone and monitor on telemetry.
Avoid other QT prolonging medications.
# Benign Hypertension
All BP medications have been discontinued during prior hospitalizations.
Follow orthostatic signs and consider initiation of midodrine if needed to avoid symptomatic orthostatic hypotension.
# Hypothyroidism
TSH 0.28, FT4 2.8, cont PLUG DRILL OPERATOR Synthroid
# Hypokalemia
PD
# Hyponatremia
PD
DVT Prophylaxis: Eliquis
Code Status: DNR
DW RN
left voice mail to son
Anticipated Discharge: > 48 hours
Subjective/Interval History
-
Date of Service: November 08, 2024
Objective Data
-
Labs:
Laboratory Results
11/08/24
03:40
WBC 8.6
Hgb 8.5 L
Hct 26.1 L
Plt Count 327
Sodium 130 L
Potassium 3.5
Chloride 93 L
Carbon Dioxide 28
BUN 27 H
Creatinine 6.9 H*
Glucose 79
Calcium 7.5 L
Total Bilirubin 0.5
AST 22
ALT 13
Alkaline Phosphatase 110
Vital Signs:
Vital Signs
Temp Pulse Resp BP Pulse Ox
36.8 C 63 16 153/56 98
11/08/24 04:30 11/08/24 08:10 11/02/24 12:24 11/08/24 08:10 11/07/24 23:17
I&O
11/07/24 11/08/24 11/09/24
06:59 06:59 06:59
Intake Total 580 / 580 540 / 540
Output Total 900 / 900 1100 / 1100
Balance -320 / -320 -560 / -560
Review of Systems
-
All other systems: Reviewed and negative
Physical Exam
-
General: Well Developed, No Apparent Distress, Comfortable and Conversant
Respiratory: Clear to Auscultation and Non Labored Respirations; Negative Accessory Resp Muscle Use
Cardiac: Regular Rhythm and S1/S2
GI: Soft
Neuro: Awake and Alert
Psych: Calm and Intact Judgement/Insight
Data Reviewed
-
Labs: Labs Reviewed by me
--- NOTE | 2024-11-08 10:18 | W.PN.NEPH.PH ---
Today's Communication / Plan
-
PD orders provide
Assessment/Plan
-
Impression:
Syncope
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
Left carotid stenosis
End-stage renal disease on peritoneal dialysis
Hypertension
Paroxysmal atrial fibrillation
Hyperphosphatemia
Anemia
History of CABG
h/o bilat CEA at [facility]
TCAR 08/11/2024
Plan:
hemodynamically stable
cont PD 1.5% Q4h exchanges, 2 L each exchange
PD sheets noted, mild net neg balance
follow Hgb that is decreased, bleeding again , GI follows -sigmoidoscopy today
mild orthostatic vitals seem chronic, no anti HTN meds
-
-
Date of Service: November 08, 2024
CC / HPI / ROS
-
Chief Complaint:
ESRD
History of Present Illness:
PD in progress, no issues
Sodium low 130 better
BP stable
Hgb stable 8.5
Review of Systems:
No chest pain or shortness of breath
no n/v
some rectal bleeding today
Labs
-
Labs:
WBC 8.6 10^3/uL (4.8-10.8) 11/08/24 03:40
RBC 2.63 10^6/uL (4.70-6.10) L 11/08/24 03:40
Hgb 8.5 g/dL (13.0-18.0) L 11/08/24 03:40
Hct 26.1 % (39.0-52.0) L 11/08/24 03:40
Plt Count 327 10^3/uL (130-400) 11/08/24 03:40
Sodium 130 mmol/L (135-145) L 11/08/24 03:40
Potassium 3.5 mmol/L (3.5-5.1) 11/08/24 03:40
Chloride 93 mmol/L (98-107) L 11/08/24 03:40
Carbon Dioxide 28 mmol/L (22-30) 11/08/24 03:40
BUN 27 mg/dl (9-20) H 11/08/24 03:40
Creatinine 6.9 mg/dL (0.7-1.3) H* 11/08/24 03:40
eGFR 7.59 11/08/24 03:40
Glucose 79 mg/dl (70-99) 11/08/24 03:40
Calcium 7.5 mg/dl (8.4-10.2) L 11/08/24 03:40
Albumin 2.3 g/dl (3.5-5.0) L 11/08/24 03:40
Physical Exam
-
Vital Signs:
Vital Signs
Temp Pulse Resp BP Pulse Ox
98.4 F 63 16 153/56 98
11/08/24 07:05 11/08/24 08:11 11/02/24 12:24 11/08/24 08:11 11/07/24 23:17
Cardiovascular:: Regular rate and rhythm
Respiratory:: Bilateral: CTA
Lung Excursion:: Normal
Abdomen:: Nontender and Soft
Extremity Edema:: None: Bilateral:
Gavin Catheter: No
[2024-11-08] MEDS: LIDOCAINE 4% PATCH 2 PATCH TOPICAL (10:45)
[2024-11-08 12:26] VITALS: BP 129/47
--- NOTE | 2024-11-08 13:03 | PTCARENOTE ---
Patient given 500ml tap water enema x2. Second enema resulted in clear, liquid returned.
[2024-11-08] MEDS: GAVISCON LIQUID 15 ML PO (13:17)
--- NOTE | 2024-11-08 15:09 | W.PN.GI.CBS2 ---
Addendum entered and electronically signed by Martha Dubon DO 11/08/24 18:21:
Patient seen and examined independently of NURSING ASSISTANT. I agree with note with my additions below
Tristian is a 79-year-old male with history of stroke, severe left carotid stenosis, peritoneal dialysis, A-fib on Eliquis who came in 10/29/2024 for weakness falls and syncope with recurrent orthostatic hypotension. While here in the hospital he said
multiple brown stools with bright red blood in the toilet. He is on Eliquis with the last dose today this morning. It has been intermittently stopped and started throughout this hospitalization. Initially did not want any endoscopic workup but
has been agreeable the last couple of days. The plan was to do a flexible sigmoidoscopy today however there were more emergent procedures and he will be done tomorrow.
His last colonoscopy was December 2023 at [facility]. He had 2 colonoscopies in 2023-second 1 was for follow-up of an advanced polyp.
-- N.p.o. after midnight for flexible sigmoidoscopy
-- May need antibiotic if there is potential hemorrhoidal banding.
Original Note:
Today's Communication / Plan
-
+ blood noted with enema today
flex sig now for 2/
Eliquis hold last dose 2/3 AM, ok to cont ASA
resume diet then NPO in AM
will review with Dr. Dubon for need for abx prior to procedure with hx PD
cont bowel regiment
baseline hbg around 8 range with CKD and hbg 8.5 today history of hemorrhoidectomy
last colonoscopy 2023 at [facility]
OP follow up at [facility]
reviewed with Dr. Winkler
Assessment / Plan
-
79-year-old male with past medical history of left occipital stroke with severe left carotid stenosis, CAD, hypertension, hyperlipidemia, hypothyroidism, end-stage renal failure on peritoneal dialysis, anemia of chronic disease, A-fib on Eliquis,
last dose 2 days ago, colon polyp with recent fall on 10/26/2024 while in the bathroom hitting his right rib cage. Anticoagulation was stopped at that time. Prior to that he was having intermittent episodes of bright red blood per rectum. Patient
states that he felt this was secondary to his hemorrhoids that he has had on and off periodically. Prior to that he had 2 days of diarrhea. He did have some mild rectal bleeding associated with that as well. Yesterday the patient was on the
toilet trying to have a bowel movement. He felt nausea with dizziness. He had near syncope. There was some blood in the toilet. He was brought to the emergency room further evaluation. He has already been off Eliquis for 2 days. Patient
initially declined rectal exam however later did allow emergency room physician to perform rectal exam. There was brown stool. There was old blood dried in rectal area. No obvious external hemorrhoids with bleeding. No further episodes of
bleeding while in the emergency room. Patient tolerating clear liquid diet. No abdominal pain. Patient's last colonoscopy was less than 1 year ago. At that time he had 2 colonoscopies 1 in October 2019 for the second in December 2023 for removal of
polyp done at [facility] in [place]. Patient states that the physician states he required no further colonoscopies. Records unavailable to us. Patient has prior history of hemorrhoidectomy in the past with bleeding hemorrhoids subsequent to
this. At the present time the patient denies any fevers, chills, nausea, vomiting, melena, dysphagia or odynophagia. No early satiety or unintentional weight loss. WBC 13.6, hemoglobin 7.8 down from 8.7, hematocrit 24.3, platelets 262. He did
receive 1 L of normal saline during this time. Patient baseline hemoglobin in the mid 8-9 range.
Impression:
Syncope
Fall
Rectal bleeding
-- declined rectal exam on admission and repeat eval 11/02
hx hemorrhoidectomy
hx polyps with colonoscopy 2023
Plan:
+ blood noted with enema today
flex sig now for 2
Eliquis hold last dose 2/3 AM, ok to cont ASA
resume diet then NPO in AM
will review with Dr. Dubon for need for abx prior to procedure with hx PD
cont bowel regiment
baseline hbg around 8 range with CKD and hbg 8.5 today history of hemorrhoidectomy
last colonoscopy 2023 at [facility]
OP follow up at [facility]'
reviewed with Dr. Winkler
Subjective
Subjective
Date of Service: November 08, 2024
2/3 brown stool with red clots with enema NPO but now advancing diet as for flex in AM
Objective
Data Reviewed
Laboratory Data:
Laboratory Results
11/08/24 03:40
11/08/24 03:40
Laboratory Results
Total Bilirubin 0.5 mg/dl (0.2-1.3) 11/08/24 03:40
AST 22 U/L (17-59) 11/08/24 03:40
ALT 13 U/L (0-50) 11/08/24 03:40
Alkaline Phosphatase 110 U/L (38-126) 11/08/24 03:40
Vital Signs and I&O:
Vital Signs
Temp Pulse Resp BP Pulse Ox
98.4 F 69 16 129/47 98
11/08/24 07:05 11/08/24 12:26 11/02/24 12:24 11/08/24 12:26 11/07/24 23:17
I&O
11/07/24 11/08/24 11/09/24
06:59 06:59 06:59
Intake Total 580 / 580 540 / 540 60 / 60
Output Total 900 / 900 1100 / 1100 400 / 400
Balance -320 / -320 -560 / -560 -340 / -340
Physical Exam
Physical Exam
HEENT: Anicteric and Moist mucous membranes
Cardiology: Normal Sinus Rhythm
Pulmonary: Clear
GI: Soft, Distended (mild with hx PD), Non Tender and Other (PD cath in place )
Rectal: Other (red blood with enema per staff )
Extremities: No Edema
Neuro: Non Focal
[2024-11-08 20:00] VITALS: BP 130/49
[2024-11-09] VITALS (12 sets, daily range): BP systolic 99–147; BP diastolic 38–93; PULSE 71; BMI 23.0
[2024-11-09 04:43] LABS: Hematocrit 25.7 % (39.0-52.0); Hemoglobin 8.5 g/dL (13.0-18.0); Mean Corp Hgb Conc. 33.1 g/dL (33.0-37.0); Mean Corpuscular Hgb 32.4 pg (27.0-31.0); Mean Corpuscular Volume 98.1 fL (80.0-94.0); Mean Platelet Volume 9.2 fL (7.4-10.4); Platelet Count 373 10^3/uL (130-400); Red Blood Cell Count 2.62 10^6/uL (4.70-6.10); Red Cell Dist. Width 16.4 % (11.5-14.5); White Blood Cell Count 8.8 10^3/uL (4.8-10.8)
[2024-11-09 04:57] LABS: Blood Urea Nitrogen 27 mg/dl (9-20); Calcium 7.6 mg/dl (8.4-10.2); Carbon Dioxide 33 mmol/L (22-30); Chloride 90 mmol/L (98-107); Estimated Creatinine Clearance 8 ml/min; Glucose 97 mg/dl (70-99); Magnesium 1.7 mg/dl (1.6-2.3); Potassium 3.7 mmol/L (3.5-5.1); Sodium 130 mmol/L (135-145); eGFR 7.72
[2024-11-09] MEDS: SYNTHROID 150 MCG PO (05:41)
[2024-11-09] MEDS: ROBITUSSIN 100 MG PO (05:41)
--- NOTE | 2024-11-09 07:45 | W.PN.HOSP.TC ---
Today's Communication/Plan
-
see A/P
Assessment / Plan
Assessment / Plan
Patient is a 79 yo M with PMH significant for ASCVD, ESRD on PD and A-Fib who presented to complaining of syncope / collapse at home.
A/P:
# Recurrent Syncope
# Orthostatic Hypotension
# Fall with R rib pain, without rib fracture
Pain control with Tylenol, lidocaine patch x2
Ongoing orthostatic drop in blood pressure noted. Not sure if this is dysautonomia or secondary to blood loss and anemia. No arrhythmia noted on the monitoring manager.
TSH 0.28, FT4 2.8, cont SCHOOL LUNCH MANAGER Synthroid
Random cortisol level 12.8.
Now off all antihypertensive medications
Midodrine was started, now off due to hypertension
Check repeat orthostatic VS
# Chronic Anemia of CKD
# Possible chronic blood loss anemia
# GI Bleeding-bright red rectal bleeding
# History of hemorrhoidal bleeding and anemia
Likely anemia of CKD and possibly hemorrhoidal related bleeding
Eliquis was held, now resumed
Transfused 1 unit of PRBC 10/31 for H&H dropped to 6.9� responded well
Pt now agreeable to scope/flex sig� now planned for 11/09
Holding Eliquis before sig
GI on board
# ESRD on PD
Continue with PD
Nephrology evaluation for treatments during his hospital stay.
# ASCVD, stable.
No chest pain / dyspnea / etc.
Continue ASA uninterrupted given carotid stent (08/2024).
# Paroxysmal Atrial Fibrillation
# Prolonged QT
Stable. Continue amiodarone and monitor on telemetry.
Avoid other QT prolonging medications.
# Benign Hypertension
All BP medications have been discontinued during prior hospitalizations.
Follow orthostatic signs and consider initiation of midodrine if needed to avoid symptomatic orthostatic hypotension.
# Hypothyroidism
TSH 0.28, FT4 2.8, cont SCHOOL LUNCH MANAGER Synthroid
# Hypokalemia
PD
# Hyponatremia
PD
DVT Prophylaxis: Eliquis
Code Status: DNR
DW RN
Anticipated Discharge: 24 - 48 hours
Subjective/Interval History
-
Date of Service: November 09, 2024
Objective Data
-
Labs:
Laboratory Results
11/09/24
04:23
WBC 8.8
Hgb 8.5 L
Hct 25.7 L
Plt Count 373
Sodium 130 L
Potassium 3.7
Chloride 90 L
Carbon Dioxide 33 H
BUN 27 H
Creatinine 6.8 H*
Glucose 97
Calcium 7.6 L
Vital Signs:
Vital Signs
Temp Pulse Resp BP Pulse Ox
36.8 C 66 16 139/40 94
11/09/24 03:00 11/09/24 06:00 11/02/24 12:24 11/09/24 04:00 11/09/24 03:00
I&O
11/08/24 11/09/24 11/10/24
06:59 06:59 06:59
Intake Total 540 / 540 60 / 60
Output Total 1100 / 1100 1000 / 1000
Balance -560 / -560 -940 / -940
Review of Systems
-
All other systems: Reviewed and negative
Physical Exam
-
General: Well Developed, No Apparent Distress, Comfortable and Conversant
Respiratory: Clear to Auscultation and Non Labored Respirations; Negative Accessory Resp Muscle Use
Cardiac: Regular Rhythm and S1/S2
GI: Soft
Neuro: Awake and Alert
Psych: Calm and Intact Judgement/Insight
Data Reviewed
-
Labs: Labs Reviewed by me
[2024-11-09] MEDS: LIDOCAINE 4% PATCH 2 PATCH TOPICAL (07:50)
[2024-11-09] MEDS: B COMPLEX w/VITAMIN C 1 CAPLET PO (07:50)
[2024-11-09] MEDS: LOW STRENGTH ASPIRIN 81 MG PO (07:51)
[2024-11-09] MEDS: LIPITOR 40 MG PO (07:51)
[2024-11-09] MEDS: NSS (PRESERVATIVE FREE) 10 ML IV (07:52)
[2024-11-09] MEDS: PROTONIX IV 40 MG IV (07:52)
[2024-11-09] MEDS: SENOKOT-S 1 TABLET PO ×2 (07:53→20:07)
[2024-11-09] MEDS: PACERONE 200 MG PO (07:53)
[2024-11-09] MEDS: MIRALAX PO (07:54)
[2024-11-09] MEDS: GAVISCON LIQUID 15 ML PO (08:29)
--- NOTE | 2024-11-09 10:28 | W.PN.NEPH.PH ---
Today's Communication / Plan
-
PD orders provided
For flex sig this afternoon
Assessment/Plan
-
Impression:
Syncope
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
Left carotid stenosis
End-stage renal disease on peritoneal dialysis
Hypertension
Paroxysmal atrial fibrillation
Hyperphosphatemia
Anemia
History of CABG
h/o bilat CEA at [facility]
TCAR 08/11/2024
Plan:
hemodynamically stable
cont PD 1.5% Q4h exchanges, 2 L each exchange \\
PD sheets noted, continue negative net balance
follow Hgb that is decreased, bleeding again , GI follows -sigmoidoscopy today
mild orthostatic vitals seem chronic, no anti HTN meds
-
-
Date of Service: November 09, 2024
CC / HPI / ROS
-
Chief Complaint:
ESRD
History of Present Illness:
PD in progress, no issues
Sodium low 130 better
BP stable
Hgb stable 8.5
Review of Systems:
No chest pain or shortness of breath
no n/v
Labs
-
Labs:
WBC 8.8 10^3/uL (4.8-10.8) 11/09/24 04:23
RBC 2.62 10^6/uL (4.70-6.10) L 11/09/24 04:23
Hgb 8.5 g/dL (13.0-18.0) L 11/09/24 04:23
Hct 25.7 % (39.0-52.0) L 11/09/24 04:23
Plt Count 373 10^3/uL (130-400) 11/09/24 04:23
Sodium 130 mmol/L (135-145) L 11/09/24 04:23
Potassium 3.7 mmol/L (3.5-5.1) 11/09/24 04:23
Chloride 90 mmol/L (98-107) L 11/09/24 04:23
Carbon Dioxide 33 mmol/L (22-30) H 11/09/24 04:23
BUN 27 mg/dl (9-20) H 11/09/24 04:23
Creatinine 6.8 mg/dL (0.7-1.3) H* 11/09/24 04:23
eGFR 7.72 11/09/24 04:23
Glucose 97 mg/dl (70-99) 11/09/24 04:23
Calcium 7.6 mg/dl (8.4-10.2) L 11/09/24 04:23
Albumin 2.3 g/dl (3.5-5.0) L 11/08/24 03:40
Physical Exam
-
Vital Signs:
Vital Signs
Temp Pulse Resp BP Pulse Ox
98.3 F 70 16 139/40 94
11/09/24 07:55 11/09/24 07:53 11/02/24 12:24 11/09/24 07:53 11/09/24 03:00
Cardiovascular:: Regular rate and rhythm
Respiratory:: Bilateral: CTA
Lung Excursion:: Normal
Abdomen:: Nontender and Soft
Extremity Edema:: None: Bilateral:
Gavin Catheter: No
--- NOTE | 2024-11-09 12:14 | PTCARENOTE ---
Received patient this am, aaox3, states some discomfort to right side/ribs. Lidocaine patches applied per md order. Patient in NSR with 1 degree HB and prolonged QT. + PP, no edema. Lungs cta throughout. BS active x4. Patient scheduled for GI lab
this afternoon for Sigmoidoscopy. RN called GI lab to review time as pt ordered PD to be drained and tap water enema prior to GI lab. Patient updated and aware. Will continue to monitor.
--- NOTE | 2024-11-09 14:27 | PTCARENOTE ---
Patient PD drained, enema administered, tolerated well. Had BRB in stool post enema. Patient transported to GI lab. Awaiting patient return.
--- NOTE | 2024-11-09 14:37 | CM ---
Addendum entered by Luzma Strickland RN 11/09/24 16:01:
Met with patient; encouraged him to work with PT today so we can see that he can be safe to go home with toy department manager caregivers. Patient says his caregivers often stay with him longer than 2 hrs/day. He feels he can walk well and wants to go home
with [facility] for PT.
Spoke with CATIA Andre; patient ambulated well today and will recommend HH.
Spoke with Yenifer Barrientos , fax [phone]); Iliana says patient did not have [facility] recently, and they will be able to provide SN/PT/OT. They can add [facility] on later for PT if patient prefers.
Plan home with [facility] and resumption caregivers.
Original Note:
Patient with Hx ESRD on PD. Sigmoidoscopy today. Room air. PT 11/04; SNF vs Home assist.
Message to CATIA Andre requesting patient be seen today for update on his current mobility.
Extensive discussion with patient's daughter Alivia; she has not looked into increasing the patient's caregiver hours, and she is currently out of town in [place] working on fixing up a house there, with unknown date of returning home. Discussed
that patient would be unable to go to SNF for rehab as there are no known SNFs that accept patients with PD. Encouraged daughter to speak with her brother Hossein to formulate a plan for family supervision for the patient at home or increased caregiver
hours. Daughter admits that 2hrs/day of caregivers is inadequate if patient has issues with his mobility once he gets up to the bathroom, as he sometimes cannot ambulate back to the bed. She says she realizes patient may ideally need to go to an
alternate living situation where he can have more assistance. Reiterated d/c plan of home with [facility] and caregivers.
Plan follow up after seen again by PT.
Plan home with [facility] and resumption caregivers.
--- NOTE | 2024-11-09 16:23 | PTCARENOTE ---
Patient returned from GI lab, PD drained for 300 upon return, then filled with 1.5 Dialsylate. Dwelling start time 16:20.
[2024-11-09] MEDS: MIRALAX 17 GRAMS PO (20:07)
[2024-11-09] MEDS: ANUSOL HC 25 MG RECTAL (20:07)
[2024-11-09] MEDS: PROTONIX 40 MG PO (20:07)
[2024-11-10] VITALS (12 sets, daily range): BP systolic 100–174; BP diastolic 33–89; PULSE 76; O2SAT 99; BMI 22.7
[2024-11-10] MEDS: SYNTHROID 150 MCG PO (05:40)
[2024-11-10 06:17] LABS: Hematocrit 24.9 % (39.0-52.0); Hemoglobin 8.4 g/dL (13.0-18.0); Mean Corp Hgb Conc. 33.7 g/dL (33.0-37.0); Mean Corpuscular Hgb 32.7 pg (27.0-31.0); Mean Corpuscular Volume 96.9 fL (80.0-94.0); Mean Platelet Volume 8.8 fL (7.4-10.4); Platelet Count 405 10^3/uL (130-400); Red Blood Cell Count 2.57 10^6/uL (4.70-6.10); Red Cell Dist. Width 16.2 % (11.5-14.5); White Blood Cell Count 7.8 10^3/uL (4.8-10.8)
[2024-11-10 06:37] LABS: Blood Urea Nitrogen 28 mg/dl (9-20); Calcium 7.6 mg/dl (8.4-10.2); Carbon Dioxide 32 mmol/L (22-30); Chloride 90 mmol/L (98-107); Estimated Creatinine Clearance 8 ml/min; Glucose 92 mg/dl (70-99); Magnesium 1.8 mg/dl (1.6-2.3); Potassium 3.7 mmol/L (3.5-5.1); Sodium 130 mmol/L (135-145); eGFR 7.46
[2024-11-10] MEDS: SENOKOT-S 1 TABLET PO ×2 (08:12→20:43)
[2024-11-10] MEDS: LIPITOR 40 MG PO (08:12)
[2024-11-10] MEDS: LOW STRENGTH ASPIRIN 81 MG PO (08:12)
[2024-11-10] MEDS: PROTONIX 40 MG PO ×2 (08:12→20:43)
[2024-11-10] MEDS: PACERONE 200 MG PO (08:12)
[2024-11-10] MEDS: MIRALAX PO ×2 (08:13→20:43)
[2024-11-10] MEDS: LIDOCAINE 4% PATCH 2 PATCH TOPICAL (08:13)
[2024-11-10] MEDS: B COMPLEX w/VITAMIN C 1 CAPLET PO (08:13)
--- NOTE | 2024-11-10 11:29 | W.PN.HOSP.TC ---
Today's Communication/Plan
-
see A/P
Assessment / Plan
Assessment / Plan
Patient is a 79 yo M with PMH significant for ASCVD, ESRD on PD and A-Fib who presented to complaining of syncope / collapse at home.
A/P:
# Recurrent Syncope
# Orthostatic Hypotension
# Fall with R rib pain, without rib fracture
Pain control with Tylenol, lidocaine patch x2
Ongoing orthostatic drop in blood pressure noted. Not sure if this is dysautonomia or secondary to blood loss and anemia. No arrhythmia noted on the registered nurse cardiac.
TSH 0.28, FT4 2.8, cont COLOR MAKER FORMULATOR Synthroid
Random cortisol level 12.8.
Now off all antihypertensive medications
Midodrine was started, now off due to hypertension
Check repeat orthostatic VS, apparently negative per RN, awaiting documentation
# Chronic Anemia of CKD
# Possible chronic blood loss anemia
# GI Bleeding-bright red rectal bleeding
# History of hemorrhoidal bleeding and anemia
Likely anemia of CKD and possibly hemorrhoidal related bleeding
Eliquis was held, now resumed
Transfused 1 unit of PRBC 10/31 for H&H dropped to 6.9� responded well
Pt now agreeable to scope/flex sig, s/p flex sig / which showed internal hemorrhoid, No specimen collected.
Anusol suppository started by GI
Ok to cont Eliquis per GI
Hgb stable at 8.4 today
GI on board
# ESRD on PD
Continue with PD
Nephrology evaluation for treatments during his hospital stay.
# ASCVD, stable.
No chest pain / dyspnea / etc.
Continue ASA uninterrupted given carotid stent (08/2024).
# Paroxysmal Atrial Fibrillation
# Prolonged QT
Stable. Continue amiodarone and monitor on telemetry.
Avoid other QT prolonging medications.
# Benign Hypertension
All BP medications have been discontinued during prior hospitalizations.
Follow orthostatic signs and consider initiation of midodrine if needed to avoid symptomatic orthostatic hypotension.
# Hypothyroidism
TSH 0.28, FT4 2.8, cont COLOR MAKER FORMULATOR Synthroid
# Hypokalemia
PD
# Hyponatremia
PD
DVT Prophylaxis: Eliquis
Code Status: DNR
Anticipated Discharge: Within 24 hours
Subjective/Interval History
-
Date of Service: November 10, 2024
Objective Data
-
Labs:
Laboratory Results
11/10/24
05:54
WBC 7.8
Hgb 8.4 L
Hct 24.9 L
Plt Count 405 H
Sodium 130 L
Potassium 3.7
Chloride 90 L
Carbon Dioxide 32 H
BUN 28 H
Creatinine 7.0 H*
Glucose 92
Calcium 7.6 L
Vital Signs:
Vital Signs
Temp Pulse Resp BP Pulse Ox
36.8 C 74 18 128/46 96
11/10/24 07:48 11/10/24 06:00 11/09/24 14:45 11/10/24 06:00 11/09/24 21:12
I&O
11/09/24 11/10/24 11/11/24
06:59 06:59 06:59
Intake Total 60 / 60 480 / 480
Output Total 1000 / 1000 1750 / 1750
Balance -940 / -940 -1750 / -1750 480 / 480
Review of Systems
-
All other systems: Reviewed and negative
Physical Exam
-
General: Well Developed, No Apparent Distress, Comfortable and Conversant
Respiratory: Clear to Auscultation and Non Labored Respirations; Negative Accessory Resp Muscle Use
Cardiac: Regular Rhythm and S1/S2
GI: Soft
Genito-urinary: Other (PD)
Neuro: Awake and Alert
Psych: Calm and Intact Judgement/Insight
Data Reviewed
-
Labs: Labs Reviewed by me
--- NOTE | 2024-11-10 13:51 | W.PN.NEPH.PH ---
Today's Communication / Plan
-
cont PD
Assessment/Plan
-
Impression:
Syncope
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
Left carotid stenosis
End-stage renal disease on peritoneal dialysis
Hypertension
Paroxysmal atrial fibrillation
Hyperphosphatemia
Anemia
History of CABG
h/o bilat CEA at [facility]
TCAR 08/11/2024
Plan:
hemodynamically stable
cont PD 1.5% Q4h exchanges, 2 L each exchange
PD sheets noted, continue negative net balance
follow Hgb that is decreased, s/p sigmoidoscopy 11/09
mild orthostatic vitals seem chronic, no anti HTN meds
d/c plan
-
-
Date of Service: November 10, 2024
CC / HPI / ROS
-
Chief Complaint:
ESRD
History of Present Illness:
PD in progress, no issues
Sodium low 130 stable
BP stable
Hgb stable 8.5
Review of Systems:
No chest pain or shortness of breath
no n/v
Labs
-
Labs:
WBC 7.8 10^3/uL (4.8-10.8) 11/10/24 05:54
RBC 2.57 10^6/uL (4.70-6.10) L 11/10/24 05:54
Hgb 8.4 g/dL (13.0-18.0) L 11/10/24 05:54
Hct 24.9 % (39.0-52.0) L 11/10/24 05:54
Plt Count 405 10^3/uL (130-400) H 11/10/24 05:54
Sodium 130 mmol/L (135-145) L 11/10/24 05:54
Potassium 3.7 mmol/L (3.5-5.1) 11/10/24 05:54
Chloride 90 mmol/L (98-107) L 11/10/24 05:54
Carbon Dioxide 32 mmol/L (22-30) H 11/10/24 05:54
BUN 28 mg/dl (9-20) H 11/10/24 05:54
Creatinine 7.0 mg/dL (0.7-1.3) H* 11/10/24 05:54
eGFR 7.46 11/10/24 05:54
Glucose 92 mg/dl (70-99) 11/10/24 05:54
Calcium 7.6 mg/dl (8.4-10.2) L 11/10/24 05:54
Albumin 2.3 g/dl (3.5-5.0) L 11/08/24 03:40
Physical Exam
-
Vital Signs:
Vital Signs
Temp Pulse Resp BP Pulse Ox
98.6 F 74 18 128/46 96
11/10/24 12:32 11/10/24 06:00 11/09/24 14:45 11/10/24 06:00 11/09/24 21:12
Cardiovascular:: Regular rate and rhythm
Respiratory:: Bilateral: CTA
Lung Excursion:: Normal
Abdomen:: Nontender and Soft
Extremity Edema:: None: Bilateral:
Gavin Catheter: No
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
[2024-11-10] MEDS: ELIQUIS 2.5 MG PO (20:43)
[2024-11-10] MEDS: ANUSOL HC 25 MG RECTAL (20:44)
[2024-11-11] VITALS (9 sets, daily range): BP systolic 101–169; BP diastolic 45–72; BMI 22.8
[2024-11-11] MEDS: SYNTHROID 150 MCG PO (05:57)
[2024-11-11 06:26] LABS: Hematocrit 23.4 % (39.0-52.0); Mean Corp Hgb Conc. 34.2 g/dL (33.0-37.0); Mean Corpuscular Hgb 33.2 pg (27.0-31.0); Mean Corpuscular Volume 97.1 fL (80.0-94.0); Mean Platelet Volume 8.8 fL (7.4-10.4); Platelet Count 375 10^3/uL (130-400); Red Blood Cell Count 2.41 10^6/uL (4.70-6.10); Red Cell Dist. Width 16.1 % (11.5-14.5)
--- NOTE | 2024-11-11 06:43 | PTCARENOTE ---
Caring for pt overnight. no assessment changes. aaox3, denies pain. PD q4h. VSS. Transferred to M/S per protocol. One stool with BRB, no symptoms. Will monitor.
[2024-11-11 06:55] LABS: Blood Urea Nitrogen 28 mg/dl (9-20); Calcium 7.7 mg/dl (8.4-10.2); Carbon Dioxide 32 mmol/L (22-30); Chloride 91 mmol/L (98-107); Estimated Creatinine Clearance 8 ml/min; Glucose 90 mg/dl (70-99); Magnesium 1.6 mg/dl (1.6-2.3); Potassium 3.5 mmol/L (3.5-5.1); Sodium 125 mmol/L (135-145); eGFR 7.86
[2024-11-11] MEDS: PROTONIX 40 MG PO ×2 (07:45→21:15)
[2024-11-11] MEDS: LIPITOR 40 MG PO (07:45)
[2024-11-11] MEDS: ELIQUIS 2.5 MG PO ×2 (07:45→21:15)
[2024-11-11] MEDS: LOW STRENGTH ASPIRIN 81 MG PO (07:45)
[2024-11-11] MEDS: MIRALAX PO ×2 (07:45→21:16)
[2024-11-11] MEDS: B COMPLEX w/VITAMIN C 1 CAPLET PO (07:46)
[2024-11-11] MEDS: SENOKOT-S 1 TABLET PO ×2 (07:46→21:15)
[2024-11-11] MEDS: LIDOCAINE 4% PATCH 2 PATCH TOPICAL (07:46)
[2024-11-11] MEDS: PACERONE 200 MG PO (07:46)
--- NOTE | 2024-11-11 07:58 | W.PN.HOSP.TC ---
Today's Communication/Plan
-
DC home with HH
Assessment / Plan
Assessment / Plan
Patient is a 79 yo M with PMH significant for ASCVD, ESRD on PD and A-Fib who presented to complaining of syncope / collapse at home.
A/P:
# Recurrent Syncope
# Orthostatic Hypotension
# Fall with R rib pain, without rib fracture
Pain control with Tylenol, lidocaine patch x2
Ongoing orthostatic drop in blood pressure noted. Not sure if this is dysautonomia or secondary to blood loss and anemia. No arrhythmia noted on the night monitor.
TSH 0.28, FT4 2.8, cont COURIER Synthroid
Random cortisol level 12.8.
Now off all antihypertensive medications
Midodrine was started, now off due to hypertension
repeat orthostatic VS negative per RN
# Chronic Anemia of CKD
# Possible chronic blood loss anemia
# GI Bleeding-bright red rectal bleeding
# History of hemorrhoidal bleeding and anemia
Likely anemia of CKD and possibly hemorrhoidal related bleeding
Eliquis was held, now resumed
Transfused 1 unit of PRBC 10/31 for H&H dropped to 6.9� responded well
Pt now agreeable to scope/flex sig, s/p flex sig / which showed internal hemorrhoid, No specimen collected.
Anusol suppository started by GI
Ok to cont Eliquis per GI
Hgb 8.0 today
GI on board
# ESRD on PD
Continue with PD
Nephrology evaluation for treatments during his hospital stay.
# ASCVD, stable.
No chest pain / dyspnea / etc.
Continue ASA uninterrupted given carotid stent (08/2024).
# Paroxysmal Atrial Fibrillation
# Prolonged QT
Stable. Continue amiodarone and monitor on telemetry.
Avoid other QT prolonging medications.
# Benign Hypertension
All BP medications have been discontinued during prior hospitalizations.
Follow orthostatic signs and consider initiation of midodrine if needed to avoid symptomatic orthostatic hypotension.
# Hypothyroidism
TSH 0.28, FT4 2.8, cont COURIER Synthroid
# Hypokalemia
PD
# Hyponatremia
PD
DVT Prophylaxis: Eliquis
Code Status: DNR
DW RN
Anticipated Discharge: Today
Subjective/Interval History
-
Date of Service: November 11, 2024
Objective Data
-
Labs:
Laboratory Results
11/11/24
06:00
WBC 8.0
Hgb 8.0 L
Hct 23.4 L
Plt Count 375
Sodium 125 L
Potassium 3.5
Chloride 91 L
Carbon Dioxide 32 H
BUN 28 H
Creatinine 6.7 H*
Glucose 90
Calcium 7.7 L
Vital Signs:
Vital Signs
Temp Pulse Resp BP Pulse Ox
36.7 C 70 18 137/50 97
11/10/24 19:33 11/11/24 06:00 11/09/24 14:45 11/11/24 07:46 11/11/24 00:48
I&O
11/10/24 11/11/24 11/12/24
06:59 06:59 06:59
Intake Total 680 / 680
Output Total 1750 / 1750 1000 / 1400 400 / 400
Balance -1750 / -1750 -320 / -720 -400 / -400
Review of Systems
-
All other systems: Reviewed and negative
Physical Exam
-
General: Well Developed, No Apparent Distress, Comfortable and Conversant
Respiratory: Clear to Auscultation and Non Labored Respirations; Negative Accessory Resp Muscle Use
Cardiac: Regular Rhythm and S1/S2
GI: Soft
Genito-urinary: Other (PD)
Neuro: Awake and Alert
Psych: Calm and Intact Judgement/Insight
Data Reviewed
-
Labs: Labs Reviewed by me
--- NOTE | 2024-11-11 09:25 | CM ---
Addendum entered by Luzma Strickland RN 11/11/24 09:55:
Patient found on floor and emesis was nearby. Discharge cancelled and IMM held.
Plan TBD.
Original Note:
Patient with Hx ESRD on PD. Room air. PT recommends HH. OT recommends SNF vs home w/assist.
Met with patient and spoke with his daughter Alivia on speaker phone in patient's room; patient and daughter agree to d/c home today with [facility]. IMM completed. Daughter will provide transport home. Alivia sounded sleepy, was slow to
respond and vague again, similar to prior conversations. Daughter did not share whether she contacted any new caregiver agencies or otherwise arranged any additional caregiver hours.
Spoke with Yenifer Barrientos (ph [phone], fax [phone]); she was informed of d/c today.
Plan home with [facility] and resumption caregivers.
--- NOTE | 2024-11-11 10:00 | W.PN.UPDATE ---
Addendum entered and electronically signed by Jemima Winkler MD 11/11/24 10:09:
keep tele monitor
NPO with gentle IVF (with K and Mag) at 60 cc/hr
Original Note:
Update Note
Progress Note Update
Pt fell (found on the floor), due to ?recurrent syncope
Cancel discharge. Check CT head given pt on Eliquis. Cont tele monitoring.
DW CM, pt unable to go to SNF due to being on PD.
Discussed this with daughter, she is amenable to switch to HD to facilitate SNF dispo.
Reached out to renal on TT wrt switching pt to HD.
CC Mx 40 min
--- NOTE | 2024-11-11 11:35 | PTCARENOTE ---
Patient found on floor by case repairer at approximately 09:45. Patient had been in the bathroom and see by PCT within 3-5mins prior; instructed to pull call molina when finished. Patient did not use call molina. He stated he was walking back to bed and
felt nauseous. He said he did not want to mess up the bed so he laid on the floor and vomited. He denied dizziness, denied hitting his head and denied pain. Patient placed back on monitor (it had been removed on previous shift as per telemetry
discontinue protocol); patient was for discharge this afternoon after PD. Rapid called to assist. BP 161/72 lying, 112/62 sitting and 125/59 standing. He was assisted to stand by this nurse, LABORER [employer] and PT. He denied dizziness or pain when standing
and was able to walk to bed with this assistance. No visible signs of injury. Dr Winkler in room to assess; discharge cancelled and CT head ordered.
[2024-11-11] MEDS: GAVISCON LIQUID 15 ML PO (11:58)
[2024-11-11] MEDS: KCL 1024.9261 MEQ IV ×2 (11:58)
--- NOTE | 2024-11-11 12:28 | W.PN.NEPH.PH ---
Today's Communication / Plan
-
cont PD
ok for gentle IVF
Assessment/Plan
-
Impression:
Syncope
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
Left carotid stenosis
End-stage renal disease on peritoneal dialysis
Hypertension
Paroxysmal atrial fibrillation
Hyperphosphatemia
Anemia
History of CABG
h/o bilat CEA at [place]
TCAR 08/11/2024
Plan:
hemodynamically stable
noted events today, vomited, took himself to the floor
offers no LOC
cont PD 1.5% Q4h exchanges, 2 L each exchange, wt stable
PD sheets noted, continue negative net balance
hyponatremia-worsening likely dilutional
on gentle IVF since he is NPO
follow Hgb that is decreased, s/p sigmoidoscopy 11/09
mild orthostatic vitals seem chronic, not on anti HTN meds
Now plan of rehab at d/c however with PD difficult to find place
primary asking change to HD
spoke to the pt in detail, he did not answer
d/c plan
-
-
Date of Service: November 11, 2024
CC / HPI / ROS
-
Chief Complaint:
ESRD
History of Present Illness:
PD in progress, no issues
Sodium low 125 worse
BP stable
Hgb stable 8
Review of Systems:
No chest pain or shortness of breath
nausea and vomited this am, went on floor since does not want to mess his bed
no LOC
Labs
-
Labs:
WBC 8.0 10^3/uL (4.8-10.8) 11/11/24 06:00
RBC 2.41 10^6/uL (4.70-6.10) L 11/11/24 06:00
Hgb 8.0 g/dL (13.0-18.0) L 11/11/24 06:00
Hct 23.4 % (39.0-52.0) L 11/11/24 06:00
Plt Count 375 10^3/uL (130-400) 11/11/24 06:00
Sodium 125 mmol/L (135-145) L 11/11/24 06:00
Potassium 3.5 mmol/L (3.5-5.1) 11/11/24 06:00
Chloride 91 mmol/L (98-107) L 11/11/24 06:00
Carbon Dioxide 32 mmol/L (22-30) H 11/11/24 06:00
BUN 28 mg/dl (9-20) H 11/11/24 06:00
Creatinine 6.7 mg/dL (0.7-1.3) H* 11/11/24 06:00
eGFR 7.86 11/11/24 06:00
Glucose 90 mg/dl (70-99) 11/11/24 06:00
Calcium 7.7 mg/dl (8.4-10.2) L 11/11/24 06:00
Albumin 2.3 g/dl (3.5-5.0) L 11/08/24 03:40
Physical Exam
-
Vital Signs:
Vital Signs
Temp Pulse Resp BP Pulse Ox
97.8 F 70 18 137/50 97
11/11/24 11:18 11/11/24 06:00 11/09/24 14:45 11/11/24 07:46 11/11/24 00:48
Cardiovascular:: Regular rate and rhythm
Respiratory:: Bilateral: CTA
Lung Excursion:: Normal
Abdomen:: Nontender and Soft
Extremity Edema:: None: Bilateral:
Gavin Catheter: No
--- NOTE | 2024-11-11 18:21 | PTCARENOTE ---
Patient made NPO by Dr Winkler; TT sent at 15:[address] Winkler confirmed NPO for now. Patient c/o not being able to eat dinner; daughter also asked. TT sent to Dr Winkler; no return text at this time.
[2024-11-11] MEDS: ANUSOL HC 25 MG RECTAL (21:33)
--- NOTE | 2024-11-11 23:00 | PTCARENOTE ---
Received pt at change of shift. Pt not interested in anything this RN has to say. Completed first round of PD for patient. Offers no complaints at this time. Oral hygiene completed. Resting in bed with call molina in reach, bed alarm active.
[2024-11-12] VITALS (8 sets, daily range): BP systolic 101–161; BP diastolic 35–75; BMI 22.5
[2024-11-12] MEDS: KCL 1024.9261 MEQ IV ×2 (04:47)
[2024-11-12] MEDS: SYNTHROID 150 MCG PO (04:48)
[2024-11-12 05:00] LABS: Hematocrit 23.4 % (39.0-52.0); Hemoglobin 7.9 g/dL (13.0-18.0); Mean Corp Hgb Conc. 33.8 g/dL (33.0-37.0); Mean Corpuscular Hgb 32.9 pg (27.0-31.0); Mean Corpuscular Volume 97.5 fL (80.0-94.0); Mean Platelet Volume 8.9 fL (7.4-10.4); Platelet Count 419 10^3/uL (130-400); Red Cell Dist. Width 15.8 % (11.5-14.5); White Blood Cell Count 8.9 10^3/uL (4.8-10.8)
[2024-11-12 05:37] LABS: Blood Urea Nitrogen 22 mg/dl (9-20); Calcium 7.8 mg/dl (8.4-10.2); Carbon Dioxide 31 mmol/L (22-30); Chloride 94 mmol/L (98-107); Estimated Creatinine Clearance 8 ml/min; Glucose 102 mg/dl (70-99); Potassium 3.7 mmol/L (3.5-5.1); Sodium 131 mmol/L (135-145)
--- NOTE | 2024-11-12 07:59 | W.PN.HOSP.TC ---
Addendum entered and electronically signed by Jemima Winkler MD 11/12/24 13:03:
total DC time 40 min
Original Note:
Today's Communication/Plan
-
Discussed transitioning to HD with pt to facilitate dispo to SNF, however, pt adamantly refused HD and wants to go home.
DC home with HH
Assessment / Plan
Assessment / Plan
Patient is a 79 yo M with PMH significant for ASCVD, ESRD on PD and A-Fib who presented to complaining of syncope / collapse at home.
A/P:
# Recurrent Syncope
# Orthostatic Hypotension
# Fall with R rib pain, without rib fracture
Pain control with Tylenol, lidocaine patch x2
Ongoing orthostatic drop in blood pressure noted. Not sure if this is dysautonomia or secondary to blood loss/anemia. No arrhythmia noted on the panel monitor.
TSH 0.28, FT4 2.8, cont FINANCIAL INVESTIGATOR Synthroid
Random cortisol level 12.8.
Now off all antihypertensive medications
Midodrine was started, then taken off due to hypertension
Mechanical fall/recurrent presyncope during hospital stay 11/13, I do feel that pt would benefit going to SNF, however his peritoneal dialysis use prohibits SNF
Discussed transitioning to HD with pt to facilitate dispo to SNF, however, pt adamantly refused HD and wants to go home.
Of note, orthostatic VS was negative per RN
# Chronic Anemia of CKD
# Possible chronic blood loss anemia
# GI Bleeding-bright red rectal bleeding
# History of hemorrhoidal bleeding and anemia
Likely anemia of CKD and hemorrhoidal related bleeding
Transfused 1 unit of PRBC 10/31 for H&H dropped to 6.9� responded well
s/p flex sig 11/09 which showed internal hemorrhoid, No specimen collected.
Anusol suppository per GI
Ok to cont Eliquis per GI
Hgb 7.9 today, check repeat CBC with PCP in 1 week
# ESRD on PD
Discussed transitioning to HD with pt to facilitate dispo to SNF, however pt adamantly refused HD
Cont current PD
Nephrology on board
# ASCVD, stable.
No chest pain / dyspnea / etc.
Continue ASA uninterrupted given carotid stent (08/2024).
# Paroxysmal Atrial Fibrillation
# Prolonged QT
Stable. Continue amiodarone and monitor on telemetry.
Avoid other QT prolonging medications.
Resumed FINANCIAL INVESTIGATOR Eliquis
# Benign Hypertension
All BP medications have been discontinued during prior hospitalizations.
Follow orthostatic signs and consider initiation of midodrine if needed to avoid symptomatic orthostatic hypotension.
# Hypothyroidism
TSH 0.28, FT4 2.8, cont FINANCIAL INVESTIGATOR Synthroid
# Hypokalemia
# Hyponatremia
PD
DVT Prophylaxis: Eliquis
Code Status: DNR
DW RN
updated daughter on the phone
Anticipated Discharge: Today
Subjective/Interval History
-
Date of Service: November 12, 2024
Objective Data
-
Labs:
Laboratory Results
11/12/24
04:48
WBC 8.9
Hgb 7.9 L
Hct 23.4 L
Plt Count 419 H
Sodium 131 L
Potassium 3.7
Chloride 94 L
Carbon Dioxide 31 H
BUN 22 H
Creatinine 6.6 H*
Glucose 102 H
Calcium 7.8 L
Vital Signs:
Vital Signs
Temp Pulse Resp BP Pulse Ox
36.7 C 70 12 155/56 97
11/12/24 07:34 11/12/24 06:00 11/12/24 06:00 11/12/24 04:01 11/11/24 18:00
I&O
11/11/24 11/12/24 11/13/24
06:59 06:59 06:59
Intake Total 680 / 680 720 / 720
Output Total 1000 / 1400 1600 / 1600
Balance -320 / -720 -880 / -880
Review of Systems
-
All other systems: Reviewed and negative
Physical Exam
-
General: Well Developed, No Apparent Distress, Comfortable and Conversant
Respiratory: Clear to Auscultation and Non Labored Respirations; Negative Accessory Resp Muscle Use
Cardiac: Regular Rhythm and S1/S2
GI: Soft
Genito-urinary: Other (PD)
Neuro: Awake and Alert
Psych: Calm and Intact Judgement/Insight
Data Reviewed
-
Labs: Labs Reviewed by me
[2024-11-12 08:24] LABS: Magnesium 2.4 mg/dl (1.6-2.3)
[2024-11-12] MEDS: LOW STRENGTH ASPIRIN 81 MG PO (08:24)
[2024-11-12] MEDS: LIPITOR 40 MG PO (08:24)
[2024-11-12] MEDS: SENOKOT-S 1 TABLET PO (08:24)
[2024-11-12] MEDS: ELIQUIS 2.5 MG PO (08:24)
[2024-11-12] MEDS: B COMPLEX w/VITAMIN C 1 CAPLET PO (08:24)
[2024-11-12] MEDS: PROTONIX 40 MG PO (08:24)
[2024-11-12] MEDS: PACERONE 200 MG PO (08:24)
[2024-11-12] MEDS: LIDOCAINE 4% PATCH 2 PATCH TOPICAL (08:25)
--- NOTE | 2024-11-12 08:29 | W.PN.NEPH.PH ---
Today's Communication / Plan
-
for discharge
d/c patient home with fill
Assessment/Plan
-
Impression:
Syncope
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
Left carotid stenosis
End-stage renal disease on peritoneal dialysis
Hypertension
Paroxysmal atrial fibrillation
Hyperphosphatemia
Anemia
History of CABG
h/o bilat CEA at [place]
TCAR 08/11/2024
Plan:
hemodynamically stable
Sodium up to 131
cont PD 1.5% Q4h exchanges, 2 L each exchange, wt stable
PD sheets noted, continue negative net balance
on gentle IVF since he is NPO
follow Hgb that is decreased, s/p sigmoidoscopy 11/09
mild orthostatic vitals seem chronic, not on anti HTN meds
I agree with patient that transition to hemodialysis from PD for rehab is not appropriate
Will be discharged home today, with dayfill
d/c plan
-
-
Date of Service: November 12, 2024
CC / HPI / ROS
-
Chief Complaint:
ESRD
History of Present Illness:
PD in progress, no issues
Sodium up to 131
BP stable
Hgb stable 7.9
Review of Systems:
No chest pain or shortness of breath
nausea and vomited this am, went on floor since does not want to mess his bed
no LOC
Labs
-
Labs:
WBC 8.9 10^3/uL (4.8-10.8) 11/12/24 04:48
RBC 2.40 10^6/uL (4.70-6.10) L 11/12/24 04:48
Hgb 7.9 g/dL (13.0-18.0) L 11/12/24 04:48
Hct 23.4 % (39.0-52.0) L 11/12/24 04:48
Plt Count 419 10^3/uL (130-400) H 11/12/24 04:48
Sodium 131 mmol/L (135-145) L 11/12/24 04:48
Potassium 3.7 mmol/L (3.5-5.1) 11/12/24 04:48
Chloride 94 mmol/L (98-107) L 11/12/24 04:48
Carbon Dioxide 31 mmol/L (22-30) H 11/12/24 04:48
BUN 22 mg/dl (9-20) H 11/12/24 04:48
Creatinine 6.6 mg/dL (0.7-1.3) H* 11/12/24 04:48
eGFR 8.00 11/12/24 04:48
Glucose 102 mg/dl (70-99) H 11/12/24 04:48
Calcium 7.8 mg/dl (8.4-10.2) L 11/12/24 04:48
Albumin 2.3 g/dl (3.5-5.0) L 11/08/24 03:40
Physical Exam
-
Vital Signs:
Vital Signs
Temp Pulse Resp BP Pulse Ox
98.1 F 70 12 155/56 97
11/12/24 07:34 11/12/24 06:00 11/12/24 06:00 11/12/24 04:01 11/11/24 18:00
Cardiovascular:: Regular rate and rhythm
Respiratory:: Bilateral: CTA
Lung Excursion:: Normal
Abdomen:: Nontender and Soft
Extremity Edema:: None: Bilateral:
Gavin Catheter: No
[2024-11-12] MEDS: MIRALAX PO (08:33)
--- NOTE | 2024-11-12 08:48 | PTCARENOTE ---
orthostatic vitals done . lying 101/70 pulse 86, sitting bp 112/56 pulse 87, standing bp 113/61 pulse 90. pt denies feeling weak or dizzy.
--- NOTE | 2024-11-12 09:47 | CM ---
Addendum entered by Nurys Mccullough 11/12/24 10:29:
Met with patient at bedside; discharge plan explained
IMM benefit form explained; form signed @ 1025
Addendum entered by Nurys Mccullough 11/12/24 09:51:
CM spoke with patient's daughter, Alivia, via phone; DC plan discussed; she reported that she will provide transportation home
Original Note:
Plan: Discharge to home today with [facility] services
--- NOTE | 2024-11-12 12:25 | W.DCSUMMARY ---
Discharge Summary
Discharge Data
Date of Admission: 10/29/24
Date of Discharge: 11/12/24
-
Pending Results: No
Hospital Course
Principal Diagnosis:
Recurrent Syncope due to Orthostatic Hypotension
Fall with R rib pain, without rib fracture
GI Bleeding, bright red blood due to hemorrhoidal bleed
Chronic Diagnoses:�
Orthostatic Hypotension
Anemia of chronic disease
History of hemorrhoidal bleeding and anemia
Hypothyroidism, cont Synthroid
End-stage renal disease on peritoneal dialysis. Patient declined to transition to hemodialysis.
History of carotid stent carotid stent (08/2024).
Paroxysmal Atrial Fibrillation
Benign Hypertension
Consultations:�
Nephrology
Gastroenterology
Procedures:�
Flex sig 11/09 which showed internal hemorrhoid, No specimen collected.
Clinical course:�
This is a 79 yo M with past medical history as stated above, who presented with syncope / collapse at home.
Problem 1:
Recurrent syncope due to orthostatic hypotension, associated with fall and R rib pain (but without rib fracture).
He can continue with Tylenol and lidocaine patch for pain control.
He was initially started with midodrine but this was taken off due to hypertension.
Although it would be more favorable if the patient were discharged to SNF, however due to his peritoneal dialysis, no SNF could take him. Patient also declined SNF anyway, and refused to transition from peritoneal dialysis to hemodialysis.
He was discharged home with home health per his request.
Problem 2:
GI Bleeding, bright red blood due to hemorrhoidal bleed.
He received 1 unit PRBC transfusion on 10/31/2024 for hemoglobin at 6.9.
His hemoglobin responded well following the transfusion. On the day of discharge, his hemoglobin was at 7.9.
He underwent flexible sigmoidoscopy on 11/09/2024 by GI: noted internal hemorrhoid, no specimen was collected.
He can continue with anusol suppository for hemorrhoid.
He was cleared by GI to continue with his prior to admission Eliquis, which he was taking for paroxysmal atrial fibrillation.
He can follow-up with his PCP in 1 week, and check repeat CBC at that time.
As for the rest of his medical problems, they were stable during his hospital stay.
Discharge Plan
-
Patient Disposition: Home with Home Care
Discharge Diagnosis/Procedures: Recurrent Syncope with orthostatic hypotension;
Fall with R rib pain (without rib fracture);
Chronic Anemia of CKD;
Hemorrhoidal bleeding;
ESRD on Peritoneal dialysis
Condition: Fair
Diet: As tolerated
Additional Diets: renal diet
Activity: As tolerated
Driving Restrictions: As prior to admission
Activity Restrictions/Additional Instructions:
Avoid constipation/straining to prevent hemorrhoid
Referrals:
Iliana Hoang CRNP [Family Provider] - in less than 1 week
Additional Discharge Medication Instructions: You may continue to use hydrocortisone suppository as needed for your hemorrhoid
Prescriptions:
New
hydrocortisone acetate 25 mg Suppository
25 mg LA HS PRN (Reason: hemorrhoids) Qty: 24 0RF
Continued
amiodarone 200 mg Tablet
200 mg PO DAILY
cyanocobalamin (vitamin B-12) 1,000 mcg Tablet
1,000 mcg PO DAILY
magnesium oxide 400 mg (241.3 mg magnesium) Tablet
400 mg PO DAILY
docusate sodium [Colace] 100 mg Capsule
100 mg PO DAILYPRN PRN (Reason: constipation)
atorvastatin 40 mg Tablet
40 mg PO DAILY
levothyroxine 150 mcg Tablet
150 mcg PO DAILY
calcium carbonate 500 mg calcium (1,250 mg) Tablet,Chewable
500 mg PO TID
Dialyvite 800 800 mcg Tablet,Chewable
1 tab PO DAILY
Eliquis 5 mg tablet
2.5 mg PO BID
pantoprazole 40 mg Tablet,Delayed Release (Dr/Ec)
40 mg PO DAILY Qty: 30 0RF
acetaminophen [Tylenol Extra Strength] 500 mg Tablet
1,000 mg PO Q6HPRN PRN (Reason: mild pain)
aspirin 81 mg Tablet,Chewable
81 mg PO DAILY
Discharge Orders:
Discharge Patient (As Directed); Ordered 11/12/24
Ordered By: Jemima Winkler
Discharge Date and Time
Print Language: OCCITAN
== END 2024-11-12 13:40 | disposition home health service (06) | DRG 393 ==
LOC: IMU 02:10
PROVIDERS: Internal Medicine; Internal Medicine Gastroenterology; Nurse Practitioner Gerontology; ADMITTING PHYSICIAN Hospitalist; ATTENDING PHYSICIAN Internal Medicine; CONSULT PHYSICIAN Student in an Organized Health Care Education/Training Program; EMERGENCY PHYSICIAN Student in an Organized Health Care Education/Training Program; FAMILY PHYSICIAN Nurse Practitioner Family; OTHER PHYSICIAN Specialist
PROC: 30233N1 Transfusion of Nonautologous Red Blood Cells into Peripheral Vein, Percutaneous Approach (ICD-10-PCS; 2024-10-31)
PROC: 0DJD8ZZ Inspection of Lower Intestinal Tract, Via Natural or Artificial Opening Endoscopic (ICD-10-PCS; 2024-11-09)
DX: K64.8 Other hemorrhoids (principal); N18.6 End stage renal disease; I13.2 Hypertensive heart and chronic kidney disease with heart failure and with stage 5 chronic kidney disease, or end stage renal disease; E87.1 Hypo-osmolality and hyponatremia; D68.32 Hemorrhagic disorder due to extrinsic circulating anticoagulants; D62 Acute posthemorrhagic anemia; I50.42 Chronic combined systolic (congestive) and diastolic (congestive) heart failure; Z66 Do not resuscitate; I95.1 Orthostatic hypotension; E03.9 Hypothyroidism, unspecified; D63.1 Anemia in chronic kidney disease; E78.00 Pure hypercholesterolemia, unspecified; E83.39 Other disorders of phosphorus metabolism; I25.10 Atherosclerotic heart disease of native coronary artery without angina pectoris; I48.0 Paroxysmal atrial fibrillation; I73.9 Peripheral vascular disease, unspecified; E87.6 Hypokalemia; T45.515A Adverse effect of anticoagulants, initial encounter; R29.6 Repeated falls; Z86.73 Personal history of transient ischemic attack (TIA), and cerebral infarction without residual deficits; Z99.2 Dependence on renal dialysis; Z95.1 Presence of aortocoronary bypass graft; Z87.891 Personal history of nicotine dependence; Z79.899 Other long term (current) drug therapy; Z79.01 Long term (current) use of anticoagulants; Z79.890 Hormone replacement therapy
CPT/HCPCS: 70450; 71045; 71046; 71101; 80048; 80053; 82533; 82607; 82728; 83540; 83550; 83735; 84439; 84443; 84484; 85018; 85025; 85027; 85610; 86850; 86900; 86901; 86920; 87070; 93005; 97116; 97162; 97166; 97530; 97535; 99285; P9016

== ENCOUNTER 2024-11-22 21:36 | Inpatient (IN) | payer MEDICARE, BC, SELFPAY ==
[2024-11-22] VITALS (13 sets, daily range): BP systolic 69–137; BP diastolic 46–73; PULSE 90–94; BMI 21.0; BMI 21.8
[2024-11-22 17:18] LABS: % Basophils 0.4 % (0-2); % Eosinophils 0.2 % (0-6); % Immature Granulocytes 2.6 % (0-0.5); % Lymphocytes 14.4 % (20.5-51.1); % Monocytes 4.5 % (1.7-9.3); % Neutrophils 77.9 % (42.2-75.2); Absolute Basophils 0.1 10^3/uL (0-0.2); Absolute Immature Granulocytes 0.4 10^3/uL (0-0.05); Absolute Lymphocytes 2.4 10^3/uL (1.2-3.4); Absolute Monocytes 0.7 10^3/uL (0.1-0.6); Absolute Neutrophils 12.8 10^3/uL (1.4-6.5); Hematocrit 32.6 % (39.0-52.0); Hemoglobin 10.8 g/dL (13.0-18.0); Mean Corp Hgb Conc. 33.1 g/dL (33.0-37.0); Mean Corpuscular Hgb 32.2 pg (27.0-31.0); Mean Corpuscular Volume 97.3 fL (80.0-94.0); Mean Platelet Volume 9.9 fL (7.4-10.4); Nucleated Red Blood Cells % 0 % (-); Platelet Count 554 10^3/uL (130-400); Red Blood Cell Count 3.35 10^6/uL (4.70-6.10); Red Cell Dist. Width 15.4 % (11.5-14.5); White Blood Cell Count 16.4 10^3/uL (4.8-10.8)
[2024-11-22 17:40] LABS: ALT (SGPT) 19 U/L (0-50); AST (SGOT) 24 U/L (17-59); Albumin 3.2 g/dl (3.5-5.0); Alkaline Phosphatase 85 U/L (38-126); Blood Urea Nitrogen 35 mg/dl (9-20); Calcium 8.2 mg/dl (8.4-10.2); Carbon Dioxide 24 mmol/L (22-30); Chloride 91 mmol/L (98-107); Glucose 132 mg/dl (70-99); Potassium 3.9 mmol/L (3.5-5.1); Sodium 129 mmol/L (135-145); Total Bilirubin 0.5 mg/dl (0.2-1.3); Total Protein 5.5 g/dl (6.3-8.2); eGFR 6.55
[2024-11-22] MEDS: NSS 500 IV (19:09)
--- NOTE | 2024-11-22 19:22 | ED.GENMED ---
History of Present Illness
General
Chief Complaint: Rectal Bleeding
Source: patient
Time Seen by Provider: 11/22/24 17:03
History of Present Illness
History of Present Illness:
79-year-old male with a history of chronic renal failure, GI bleed, aortic stenosis, orthostatic hypotension who presents increased weakness and difficulty standing. Patient states he has been dizzy when tries to stand. He had been doing okay but
home care noticed some dark stools today. He does not report any further bleeding since his treatment on recent admission. On my evaluation patient denies any abdominal pain. Feels a little better laying in bed. No fevers.
Past History
Past History
ED Past Medical History: CVA (Chronic right frontal, acute left occipital and frontal), HTN, Hypercholesterolemia and Other (Renal failure/peritoneal dialysis, left internal carotid artery stenosis)
ED Past Surgical History: Other (Dialysis catheter)
Social History
Tobacco: Non-smoker
Alcohol: None
Family History
Family History: Other (Reviewed and noncontributory)
Phy Exam
Physical Exam
Physical Exam:
CONSTITUTIONAL Patient alert and oriented to person, place and time. Well-appearing. Vital signs reviewed.
HEAD atraumatic, normocephalic.
EYES eyelids normal to inspection, Extraocular muscles intact, Conjunctiva normal, Sclera normal.
NECK normal range of motion, Trachea midline, no jugular venous distention.
RESPIRATORY CHEST No respiratory distress noted, Chest expansion equal, Bilateral breath sounds clear.
CARDIOVASCULAR regular rate and rhythm, Heart sounds normal.
ABDOMEN abdomen nontender, Bowel sounds normal. No distention. PD catheter noted
Rectal exam dark but heme-negative
UPPER EXTREMITY range of motion normal, Motor strength normal, no cyanosis, no edema.
LOWER EXTREMITY range of motion normal, Motor strength normal, no cyanosis, no edema.
NEURO Speech normal, No focal motor deficits, Chester coma scale 15, Memory normal, Cranial Nerves intact to screening exam.
SKIN skin warm, dry, and normal in color.
Course
Orders/Labs/Results
Orders:
Orders
11/22/24 17:05
Type And Crossmatch [Type+Screen] Urgent
CBC/With Diff [Complete Blood Count/With Diff] Urgent
CMP [Comprehensive Metabolic Panel] Urgent
11/22/24 18:56
0.9% Sodium Chloride 500 ml [Nss] 500 ml IV BOLUS
11/22/24 19:27
EKG- Treatment ONCE
11/22/24 19:28
Electrocardiogram (*1) Urgent
11/22/24 19:30
Lactic Acid Q4H
Comment: CANCEL 2nd LACTIC ACID IF 1st LACTIC ACID IS LESS THAN 2
Blood Culture Q30M
DILLON Source: Blood/Venous
Specimen Description:
11/22/24 20:00
Blood Culture Q30M
DILLON Source: Blood/Venous
Specimen Description:
11/22/24 23:30
Lactic Acid Q4H
Comment: CANCEL 2nd LACTIC ACID IF 1st LACTIC ACID IS LESS THAN 2
Abnormal Lab Results
11/22/24
17:05
WBC 16.4 H 10^3/uL
(4.8-10.8)
RBC 3.35 L 10^6/uL
(4.70-6.10)
Hgb 10.8 L g/dL
(13.0-18.0)
Hct 32.6 L %
(39.0-52.0)
MCV 97.3 H fL
(80.0-94.0)
MCH 32.2 H pg
(27.0-31.0)
RDW 15.4 H %
(11.5-14.5)
Plt Count 554 H 10^3/uL
(130-400)
Abs Immat Gran (auto) 0.4 H 10^3/uL
(0-0.05)
Absolute Neuts (auto) 12.8 H 10^3/uL
(1.4-6.5)
Absolute Monos (auto) 0.7 H 10^3/uL
(0.1-0.6)
Immature Gran % 2.6 H %
(0-0.5)
Neutrophils % 77.9 H %
(42.2-75.2)
Lymphocytes % 14.4 L %
(20.5-51.1)
Sodium 129 L mmol/L
(135-145)
Chloride 91 L mmol/L
(98-107)
BUN 35 H mg/dl
(9-20)
Creatinine 7.8 H* mg/dL
(0.7-1.3)
Glucose 132 H mg/dl
(70-99)
Calcium 8.2 L mg/dl
(8.4-10.2)
Total Protein 5.5 L g/dl
(6.3-8.2)
Albumin 3.2 L g/dl
(3.5-5.0)
11/22/24 17:05
11/22/24 17:05
Vital Signs
Initial and Last Documented VS:
Initial Vital Signs
Temp Pulse Resp BP Pulse Ox
97.7 F 88 18 69/46 100
11/22/24 16:37 11/22/24 16:37 11/22/24 16:37 11/22/24 16:37 11/22/24 16:37
Last Documented Vital Signs
Temp Pulse Resp BP Pulse Ox
97.7 F 85 11 106/52 97
11/22/24 16:37 11/22/24 18:00 11/22/24 18:00 11/22/24 18:00 11/22/24 18:00
MDM/Problems Addressed
MDM/Problems Addressed:
Orthostatic hypotension, chronic renal failure, leukocytosis
*Pulse Oximetry
Patient hypoxic: no
*Fruit Or Nut Farm Worker Interpretation
Rate: normal
Interpretation: normal
Rhythm: sinus
*Critical Care Note
Total Time (30-74mins, 75-104mins- exclusive of procedures): Not Applicable
Data Reviewed
Review of Other/Old Records Reveals: Discharge Summary (Discharge summary from November 12 reviewed, patient reportedly has refused going on hemodialysis so he can go to a SNF. He refused to go to SNF.)
Source: patient
Prescriptions/Medications Considered But Not Given:
Consider antibiotics but afebrile. Will send cultures.
Patient Management
Discussion with other providers: Hospitalist
Escalation/DeEscalation of care consider admission/obs:
pt dropped his BP with any attempt at sitting up. no signs of GIB as rectal neg. however unable to stand due to profound hypotension and weakness. Is on peritoneal dialysis. White count noted but afebrile. Culture sent. Hold off on antibiotics
pending reassessment. Abdomen soft and benign
ED Attending Note
-
Portions of this chart may have been created with voice recognition software.� Occasional wrong word or��sound alike� substitutions may have occurred due to the inherent limitations of voice recognition software.
Discharge Plan
Departure
Patient Disposition: Admit
Date of Disposition: 11/22/24
Time of Disposition: 19:32
Presentation/result/management discussed w/ accepting MD/DO: Hospitalist
Discharge Problem:
Orthostatic hypotension, Chronic renal failure, Leukocytosis
Prescriptions:
No Action
amiodarone 200 mg Tablet
200 mg PO DAILY
cyanocobalamin (vitamin B-12) 1,000 mcg Tablet
1,000 mcg PO DAILY
magnesium oxide 400 mg (241.3 mg magnesium) Tablet
400 mg PO DAILY
docusate sodium [Colace] 100 mg Capsule
100 mg PO DAILYPRN PRN (Reason: constipation)
atorvastatin 40 mg Tablet
40 mg PO DAILY
levothyroxine 150 mcg Tablet
150 mcg PO DAILY
calcium carbonate 500 mg calcium (1,250 mg) Tablet,Chewable
500 mg PO TID
Dialyvite 800 800 mcg Tablet,Chewable
1 tab PO DAILY
Eliquis 5 mg tablet
2.5 mg PO BID
pantoprazole 40 mg Tablet,Delayed Release (Dr/Ec)
40 mg PO DAILY Qty: 30 0RF
acetaminophen [Tylenol Extra Strength] 500 mg Tablet
1,000 mg PO Q6HPRN PRN (Reason: mild pain)
aspirin 81 mg Tablet,Chewable
81 mg PO DAILY
hydrocortisone acetate 25 mg Suppository
25 mg DE HS PRN (Reason: hemorrhoids) Qty: 24 0RF
Referrals:
Iliana Hoang CRNP [Family Provider] -
Interventions
Interventions:
[id number] Assessment Last Done: 11/22/24 17:20
ED- Cardiac Assessment Last Done: 11/22/24 17:20
ED- Pulmonary Assessment Last Done: 11/22/24 17:20
Discharge Date and Time
Print Language: CONGOLESE
--- NOTE | 2024-11-22 20:31 | HPS.HSE ---
Family Physician
-
Family Physician: LUZ MARIA Wolfe
Chief Complaint
-
Dizziness
History of Present Illness
Patient is a 79-year-old male with extensive past medical history including prior stroke, coronary artery disease, atrial fibrillation, chronic heart failure, ESRD on peritoneal dialysis, and recent hospitalization from 10/29 to 11/12 for hemorrhoidal
bleeding and recurrent syncope due to orthostatic hypotension who presents with dizziness. Patient reports he has had some dizziness since his hospitalization but notes over the last few days it has gotten significantly worse. He is unable to sit
up without significant symptoms. He reports very poor oral intake since discharge due to severe reflux and intermittent episodes of vomiting. He reports upset stomach with some abdominal discomfort, but denies abdominal pain. He reports black
stool, but endorses Pepto-Bismol use yesterday. He denies fever, sweats or chills.
Medical History
Past Medical History
Past Medical History: Reports Other
Additional Past Medical History:
Left Occipital Stroke
Severe Left Carotid Stenosis
Coronary Artery Disease s/p CABG
Paroxysmal Atrial Fibrillation
Heart Failure with Recovered Ejection Fraction
ESRD on Peritoneal Dialysis
Essential Hypertension
Hyperlipidemia
Hypothyroidism
Anemia of Chronic Kidney Disease
Past Surgical History: Reports Other
Additional Past Surgical History:
CABG
PD Catheter Placement
Left TCAR (08/11/24)
Social History
Tobacco: Former Smoker (Quit 5 years ago. > 40 pack years total use.)
Alcohol: None
Family History
Family History: Not pertinent
Allergies / Home Medications
Allergies reflects when Allergies were last updated in [facility].
Home Medications with original date entered in [facility]
Allergy/Medication List:
Allergies
Allergy/AdvReac Type Severity Reaction Status Date / Time
No Known Allergies Allergy Verified 10/28/24 19:28
Home Medications
amiodarone 200 mg tablet 200 mg PO DAILY Arrhythmia 10/23/24
atorvastatin 40 mg tablet 40 mg PO DAILY High Cholesterol 07/28/24
calcium carbonate 500 mg PO DAILY Gastrointestinal Issue 07/28/24
cyanocobalamin (vitamin B-12) 1,000 mcg tablet 1,000 mcg PO DAILY Supplement 07/28/24
docusate sodium 100 mg capsule (Colace) 100 mg PO DAILY 07/28/24
levothyroxine 150 mcg tablet 150 mcg PO DAILY Thyroid 07/28/24
magnesium oxide 400 mg (241.3 mg magnesium) tablet 400 mg PO DAILY Supplement 07/28/24
vitamin B complex-vitamin C-folic acid 800 mcg chewable tablet (Dialyvite 800) 1 tab PO DAILY Supplement 07/28/24
apixaban 5 mg tablet (Eliquis) 2.5 mg PO BID Blood Clot Prevention/Tx 08/11/24
pantoprazole 40 mg tablet,delayed release 40 mg PO DAILY #30 tabs 08/13/24
acetaminophen 500 mg tablet (Tylenol Extra Strength) 1,000 mg PO Q6HPRN PRN mild pain 08/20/24
aspirin 81 mg chewable tablet 81 mg PO DAILY Blood Clot Prevention/Tx 10/28/24
bismuth subsalicylate 262 mg/15 mL oral suspension (Pepto-Bismol) 524 mg PO DAILYPRN PRN gi upset 11/22/24
hydrocortisone acetate 25 mg rectal suppository 25 mg MN HS hemorrhoids 11/22/24
wheat dextrin 1 gram tablet (Benefiber (wheat dextrin)) 1 g PO BID 11/22/24
Review of Systems
-
A 12 point ROS was completed and negative except as noted: Yes
Constitutional: Denies Fever or Chills
Respiratory: Denies Cough or Trouble Breathing
Cardiac: Denies Chest Pain or Palpitations
Abdomen/GI: Reports See HPI
Physical Exam
Vital Signs
Vital Signs
Temp Pulse Resp BP Pulse Ox
97.7 F 85 11 106/52 97
11/22/24 16:37 11/22/24 18:00 11/22/24 18:00 11/22/24 18:00 11/22/24 18:00
Physical Exam
General: Comfortable and Conversant
HEENT: NormoCephalic and Anicteric
Respiratory: Clear and Non Labored Respirations
Cardiac: S1/S2 and Regular Rhythm
GI: Soft, Non Tender and Other (PD catheter)
Rectal: Hem Negative (Per ED provider)
Musculoskeletal: No Clubbing, No Cyanosis and No Edema
Skin: Warm and Dry
Neuro: Awake, Alert, Oriented and Nonfocal/grossly intact
Psych: Calm
Laboratory Results
-
11/22/24 17:05
11/22/24 17:05
Laboratory Results
Total Bilirubin 0.5 mg/dl (0.2-1.3) 11/22/24 17:05
AST 24 U/L (17-59) 11/22/24 17:05
ALT 19 U/L (0-50) 11/22/24 17:05
Alkaline Phosphatase 85 U/L (38-126) 11/22/24 17:05
Data Reviewed
-
Lab Data: Labs Reviewed by me
Impression/Plan
-
Symptomatic Orthostatic Hypotension Flare due to Volume Depletion
-Give small amount of IVFs overnight
-Add VLADIMIR stockings
-Monitor Orthostatic VS
-Consider midodrine if patient remains symptomatic
Leukocytosis, doubt active infection, likely hemoconcentration
-Blood cultures obtained
-Monitor for fevers
-Hold on antibiotics for now
GERD
-Continue Protonix
-Add Gaviscon prn as patient reports improvement with that medication in the past
-Diet as tolerated
ESRD on PD
-Consult Nephrology
Prior Left Occipital Stroke
Severe Left Carotid Stenosis s/p TCAR
Coronary Artery Disease s/p CABG
-Continue aspirin
Paroxysmal Atrial Fibrillation
-Continue Eliquis for anticoagulation
-Continue amiodarone
Heart Failure with Recovered Ejection Fraction
-Monitor Is&Os and Daily Weights
Hypothyroidism
-Continue levothyroxine
Anemia of Chronic Kidney Disease
-Hgb up almost 3gm from discharge 10 days ago suggesting hemoconcentration
-Continue to trend Hgb
DVT proph: Eliquis
Code Status: DNR
--- NOTE | 2024-11-22 20:39 | W.PN.UPDATE ---
Update Note
Progress Note Update
This note serves as an addendum to the H&P by geology associate MENA
Rachel DIETANNABELLEK
HPI
79M HX orthostatic hypotension , ESRD on home PD , GI, aortic stenosis, orthostatic hypotension, recent prolonged admission 10/29/24 -- 11/12/24 for syncope and GIB seen at ER today
- increased weakness
- difficulty standing due to dizziness when tries to stand
- NEG HoB stool at ER for reported dark stools per GRINDING WHEEL OPERATOR
- He does not report any further bleeding since his treatment on recent admission.
ROS
denies any abdominal pain. Feels a little better laying in bed. No fevers.
Vital Signs
Temp Pulse Resp BP Pulse Ox
97.7 F 85 11 106/52 97
11/22/24 16:37 11/22/24 18:00 11/22/24 18:00 11/22/24 18:00 11/22/24 18:00
PE
Gen: Not toxic
HEENT: pale
Neck: supple
Lungs: No respiratory distress noted, Chest expansion equal, Bilateral breath sounds clear.
Cor: RRR S1 S2
Abdomen: abdomen nontender, Bowel sounds normal. No distention. PD catheter noted
CORDELL per ER: dark stool but heme-negative
ATTORNEY LAWYER: Speech normal, No focal motor deficits
Psych:nl mood and affect
Data
Abnormal Lab Results
11/22/24
17:05
WBC 16.4 H
RBC 3.35 L
Hgb 10.8 L
Hct 32.6 L
MCV 97.3 H
MCH 32.2 H
RDW 15.4 H
Plt Count 554 H
Abs Immat Gran (auto) 0.4 H
Absolute Neuts (auto) 12.8 H
Absolute Monos (auto) 0.7 H
Immature Gran % 2.6 H
Neutrophils % 77.9 H
Lymphocytes % 14.4 L
Sodium 129 L
Chloride 91 L
BUN 35 H
Creatinine 7.8 H*
Glucose 132 H
Calcium 8.2 L
Total Protein 5.5 L
Albumin 3.2 L
Last hospitalist admission:
Date of Admission: 10/29/24 - Date of Discharge: 11/12/24
Principal Diagnosis:
Recurrent Syncope due to Orthostatic Hypotension
Fall with R rib pain, without rib fracture
GI Bleeding, bright red blood due to hemorrhoidal bleed
ASSESSMENT & PLAN
Postural dizziness due to symptomatic orthostatic hypotension flare due to acute volume loss from non bloody vomiting ? suspect gastroparesis
DDx: dysautonomia vs volume loss
HX fall and R rib pain without rib fracture on last admission
HX Benign Hypertension but all BP medications have been discontinued during prior hospitalizations.
Of note: Prior HX midodrine and DC'd due to hypertension.
- Prior HX unremarkable TSH, FT4 and cortisol
- Midodrine PRN and observe BP
- c/w Tylenol and lidocaine patch for pain control
- Fall precaution
NEG HoB stool upon admission
Recent admission for GI Bleeding, hemorrhoidal LGIB
- prior HX 1 unit of PRBC transfusion on 10/31/2024 for hemoglobin at 6.9. Hgb 7.9 on 11/12/24
- flexible sigmoidoscopy on 11/09/2024 by GI: noted internal hemorrhoid, no specimen was collected.
- c/w Anusol suppository PRN for hemorrhoid.
- cleared by GI to continue with MACHINE WHITENER Eliquis, for Prx AF
Anemia of chr dz due to ESRD
- current Hgb is hemoconcentrated due to contracted volume
- c/w Eliquis
ESRD on home PD dependent
Continue with PD
- Nephrology consult during his hospital stay.
ASCVD
- stable.
- No chest pain / dyspnea / etc.
- on ASA uninterrupted given carotid stent (08/2024).
Paroxysmal Atrial Fibrillation
- Stable
- c/w amiodarone
Hypothyroidism
TSH 0.28, FT4 2.8, cont MACHINE WHITENER Synthroid
Dispo dilemma:
- it would be more favorable if the patient were discharged to SNF, however due to his peritoneal dialysis, but limitation to place SNF for PD patient
- Patient also declined SNF anyway, and refused to transition from peritoneal dialysis to hemodialysis.
- home health aid at home
DVT Prophylaxis: Eliquis
DNR confirmed by daughter
IP TLM
[2024-11-22 21:04] LABS: Lactic Acid 1.9 mmol/L (0.7-2.0)
[2024-11-22 21:19] LABS: Troponin I 0.153 ng/ml
--- NOTE | 2024-11-22 23:00 | PTCARENOTE ---
Pt received from ED RN. Pt admitted to IMU. Admission questions complete. Pt AAOx3. NSR on monitor. satting 98% on RA. VSS. PD cath present. Assessment as documented.
--- NOTE | 2024-11-22 23:40 | PTCARENOTE ---
Pt with hx of ESRD, does PD at home. ED hospitalist note states to cont with PD. no current orders for PD in. Pt states his last fill was at home at 0830 11/22/24, and has not been drained since. LUZ MARIA Meeks made aware, instructed to reach out to on
call Nephrology. This RN messaged stitcher tape controlled machine nephrology and is awaiting a response.
[2024-11-23] VITALS (14 sets, daily range): BP systolic 87–162; BP diastolic 43–73; PULSE 77–92; BMI 21.8; BMI 22.0
[2024-11-23] MEDS: NSS 250 IV (00:01)
--- NOTE | 2024-11-23 02:30 | PTCARENOTE ---
PD orders received.
[2024-11-23 05:18] LABS: Hematocrit 31.6 % (39.0-52.0); Hemoglobin 10.9 g/dL (13.0-18.0); Mean Corp Hgb Conc. 34.5 g/dL (33.0-37.0); Mean Corpuscular Hgb 32.5 pg (27.0-31.0); Mean Corpuscular Volume 94.3 fL (80.0-94.0); Mean Platelet Volume 9.8 fL (7.4-10.4); Platelet Count 475 10^3/uL (130-400); Red Blood Cell Count 3.35 10^6/uL (4.70-6.10); Red Cell Dist. Width 15.2 % (11.5-14.5); White Blood Cell Count 14.9 10^3/uL (4.8-10.8)
[2024-11-23] MEDS: SYNTHROID 150 MCG PO (05:30)
[2024-11-23 05:44] LABS: Blood Urea Nitrogen 42 mg/dl (9-20); Calcium 8.6 mg/dl (8.4-10.2); Carbon Dioxide 26 mmol/L (22-30); Chloride 90 mmol/L (98-107); Estimated Creatinine Clearance 6 ml/min; Glucose 108 mg/dl (70-99); Potassium 4.5 mmol/L (3.5-5.1); Sodium 130 mmol/L (135-145); eGFR 5.59
--- NOTE | 2024-11-23 06:06 | PTCARENOTE ---
Addendum entered by Darren Rivera RN 11/23/24 06:07:
Pt placed back into bed and returned to baseline, symptoms resolving when returned to lying position.
Original Note:
attempted standing ortho vitals, pt became dizzy, legs weak , and nauseous. sitting and lying were able to be obtained.
[2024-11-23 07:04] LABS: Troponin I 0.129 ng/ml
[2024-11-23] MEDS: ELIQUIS 2.5 MG PO ×2 (08:29→19:48)
[2024-11-23] MEDS: LOW STRENGTH ASPIRIN 81 MG PO (08:32)
[2024-11-23] MEDS: PACERONE 200 MG PO (08:32)
[2024-11-23] MEDS: NEPHROCAP 1 CAPSULE PO (08:32)
[2024-11-23] MEDS: COLACE 100 MG PO (08:33)
[2024-11-23] MEDS: PROTONIX 40 MG PO (08:33)
[2024-11-23] MEDS: LIPITOR 40 MG PO (08:33)
--- NOTE | 2024-11-23 09:11 | PTOTSP ---
Received PT order from the ED and reviewed chart. Noted pt continues to orthostatic per nurse's notes, unable to complete orthostatic vital signs assessment. Will hold PT today as pt unable to tolerate activity.
--- NOTE | 2024-11-23 10:53 | PTOTSP ---
Speech Therapy Evaluation:
Pt presents with oropharyngeal swallow that appears functional/baseline at bedside. Pt demonstrated prolonged mastication and bolus formation, though likely related to being partially edentulous versus a true oral dysphagia. No overt s/sx of
aspiration across PO trials, though pt endorsed odynophagia. Suspect related to severe reflux and intermittent vomiting SPECIAL FORCES OFFICER. Pt unable to participate in 3oz swallow screen as he was nervous to vomit. WBC currently elevated. No imaging completed thus
far. RETAIL SERVICE LEAD MERCHANDISER to briefly follow to monitor odynophagia, labs, and imaging.
Recommend:
1. Continue IDDSI Level 7 (regular) and thin liquids
2. Medications as tolerated
3. Strict aspiration and reflux precautions
4. RETAIL SERVICE LEAD MERCHANDISER to briefly follow to monitor tolerance of current diet pending labs/imaging.
--- NOTE | 2024-11-23 11:54 | W.PN.HOSP.TC ---
Today's Communication/Plan
-
See plan
Assessment / Plan
Assessment / Plan
Impression:
Recurrent syncope.
� Suspected orthostatic hypotension.
Leukocytosis.
Other conditions:
End-stage renal disease on PD.
History of occipital stroke.
Carotid artery disease�severe left carotid stenosis status post TCAR.
CAD status post CABG.
Paroxysmal atrial fibrillation
Anticoagulation with Eliquis.
CHF with improved EF.
Hypothyroidism on replacement
Anemia of chronic disease/ESRD
Recent workup for GI/hemorrhoidal bleeding status post sigmoidoscopy on 11/30
Plan:
Presentation with syncope
Suspected recurrent static hypotension.
Neurologic exam with no focal findings.
Update echo (recent on 07/29 with recovered LVEF and no significant valvular abnormalities)
Carotid ultrasound.
PT eval/orthostatic vitals.
Consider addition of midodrine
Teds baseline consider abdominal binder
Leukocytosis.
Afebrile.
No particular complaints for possible source.
Blood cultures pending.
Monitor closely off antibiotics.
Follow WBC
GERD
-Continue Protonix
-Add Gaviscon prn as patient reports improvement with that medication in the past
-Diet as tolerated
ESRD on PD
-Consult Nephrology
Prior Left Occipital Stroke
Severe Left Carotid Stenosis s/p TCAR
Coronary Artery Disease s/p CABG
-Continue aspirin
Paroxysmal Atrial Fibrillation
-Continue Eliquis for anticoagulation
-Continue amiodarone
Heart Failure with Recovered Ejection Fraction
-Monitor Is&Os and Daily Weights
Hypothyroidism
-Continue levothyroxine
Anemia of Chronic Kidney Disease
-Hgb up almost 3gm from discharge 10 days ago suggesting hemoconcentration
-Continue to trend Hgb
DVT proph: Eliquis
Code Status: DNR
Anticipated Discharge: 24 - 48 hours
Subjective/Interval History
-
Date of Service: November 23, 2024
Objective Data
-
Labs:
Laboratory Results
11/23/24
04:53
WBC 14.9 H
Hgb 10.9 L
Hct 31.6 L
Plt Count 475 H
Sodium 130 L
Potassium 4.5
Chloride 90 L
Carbon Dioxide 26
BUN 42 H
Creatinine 8.9 H*
Glucose 108 H
Calcium 8.6
Vital Signs:
Vital Signs
Temp Pulse Resp BP Pulse Ox
97.3 F 73 17 136/65 100
11/23/24 07:58 11/23/24 05:00 11/23/24 05:00 11/23/24 04:00 11/23/24 04:45
I&O
11/22/24 11/23/24 11/24/24
06:59 06:59 06:59
Output Total 1999
Balance -1999 /
Physical Exam
-
General: Well Developed and No Apparent Distress
HEENT: Normocephalic, Atraumatic and Moist Mucous Membranes
Respiratory: Clear to Auscultation
Cardiac: Regular Rhythm and S1/S2; Negative Murmur, Rub or Gallop
GI: Soft, Nontender, Nondistended and Normal Bowel Sounds; Negative Organomegaly
Rectal: Deferred by Provider
Musculoskeletal: No Clubbing, No Cyanosis and No Edema
Skin: Negative Rash
Neuro: Nonfocal/Grossly Intact
--- NOTE | 2024-11-23 12:46 | CM ---
Patient with Hx ESRD on PD with Dx Recurrent syncope, Suspected orthostatic hypotension. Room air. ST Eval; recommends dysphagia diet. PT/OT Evals pending.
Spoke with patient's daughter Alivia;
the patient resides with his daughter in a 2 story townhouse with first floor setup.
He was mostly independent in ADLs however daughter and caregivers assist patient with PD.
The patient was ambulatory using his RW when he was first discharged home on 11/12, however after a few days he became weak and needed to use his w/c especially when going out to doctors office appt.
Daughter relays that patient had nausea & vomiting at home, and by Fri 11/19 had difficulty swallowing pills & was unable to eat.
The patient has private pay caregivers in place 5 days/week.
DME - SPC, RW, w/c, PD supplies
Current with [facility] for PT/OT
Prior [facility]
PCP - Iliana Hoang
Pharmacy - [facility]
Plan follow up after seen by PT/OT.
--- NOTE | 2024-11-23 13:08 | W.PN.UPDATE ---
Update Note
Progress Note Update
PD in progress
BP stable
Q4h exchanges with 2 L infusion
1.5% solution
There is no ultrafiltration goal at this time
--- NOTE | 2024-11-23 13:09 | W.CON.NEPH ---
Consultation
-
Date/Time Consultation Requested: 11/23/2024 9 AM
Date/Time Consultation Performed: 11/23/2024 12 PM
Requesting Provider: Dr. Mallory
Performing Provider: Dr. Almaguer
Reason for Consultation: ESRD
Medical History
-
Chief Complaint: ESRD/PD
History of Present Illness:
79-year-old male with CAD status post CABG, paroxysmal atrial fibrillation(maintained on amiodarone and anticoagulated with Eliquis), HFrEF, ESRD on peritoneal dialysis, hypertension on a multidrug regimen, hypercholesteremia, hypothyroidism. We
had seen him earlier this month after a fall. He also has significant anemia and GI bleeding at that time. He was ultimately stabilized and discharged. He returns today because of orthostatic hypotension. He says that this had worsened quite
significantly in the last few days. He denies any issues with his peritoneal dialysis and his outpatient regimen has remained the same with 4 exchanges overnight at 1.5% solutions.
Past Medical History
End-stage renal disease on peritoneal dialysis
Coronary artery disease with history of CABG
Paroxysmal atrial fibrillation on chronic anticoagulation
HFpEF
Hypothyroidism
Hyperphosphatemia
Anemia
Dyslipidemia
Left occipital stroke with severe left carotid artery stenosis
Social History
Tobacco: Non-Smoker
Alcohol: None
Drug: None
Family History
no ckd
Allergies / Home Medications
Allergy/AdvReac Type Severity Reaction Status Date / Time
No Known Allergies Allergy Verified 10/28/24 19:28
�Medication �Instructions �Recorded �Confirmed �Type
amiodarone 200 mg tablet 200 mg PO DAILY Arrhythmia 07/28/24 11/22/24 History
atorvastatin 40 mg tablet 40 mg PO DAILY High Cholesterol 07/28/24 11/22/24 History
calcium carbonate 500 mg PO DAILY Gastrointestinal 07/28/24 11/22/24 History
Issue
cyanocobalamin (vitamin B-12) 1,000 mcg PO DAILY Supplement 07/28/24 11/22/24 History
1,000 mcg tablet
docusate sodium 100 mg capsule 100 mg PO DAILY 07/28/24 11/22/24 History
(Colace)
levothyroxine 150 mcg tablet 150 mcg PO DAILY Thyroid 07/28/24 11/22/24 History
magnesium oxide 400 mg (241.3 mg 400 mg PO DAILY Supplement 07/28/24 11/22/24 History
magnesium) tablet
vitamin B complex-vitamin C-folic 1 tab PO DAILY Supplement 07/28/24 11/22/24 History
acid 800 mcg chewable tablet
(Dialyvite 800)
apixaban 5 mg tablet (Eliquis) 2.5 mg PO BID Blood Clot 08/11/24 11/22/24 History
Prevention/Tx
pantoprazole 40 mg tablet,delayed 40 mg PO DAILY #30 tabs 08/13/24 11/22/24 Rx
release
acetaminophen 500 mg tablet 1,000 mg PO Q6HPRN PRN mild pain 08/20/24 11/22/24 History
(Tylenol Extra Strength)
aspirin 81 mg chewable tablet 81 mg PO DAILY Blood Clot 10/28/24 11/22/24 History
Prevention/Tx
bismuth subsalicylate 262 mg/15 mL 524 mg PO DAILYPRN PRN gi upset 11/22/24 11/22/24 History
oral suspension (Pepto-Bismol)
hydrocortisone acetate 25 mg 25 mg [place] HS hemorrhoids 11/22/24 11/22/24 History
rectal suppository
wheat dextrin 1 gram tablet 1 g PO BID 11/22/24 11/22/24 History
(Benefiber (wheat dextrin))
Review of Systems
-
Lightheadedness with standing
All other systems: Negative unless noted
Physical Exam
Vital Signs
Vital Signs
Temp Pulse Resp BP Pulse Ox
97.3 F 73 17 136/65 100
11/23/24 07:58 11/23/24 05:00 11/23/24 05:00 11/23/24 04:00 11/23/24 04:45
Lab Results
WBC 14.9 10^3/uL (4.8-10.8) H 11/23/24 04:53
RBC 3.35 10^6/uL (4.70-6.10) L 11/23/24 04:53
Hgb 10.9 g/dL (13.0-18.0) L 11/23/24 04:53
Hct 31.6 % (39.0-52.0) L 11/23/24 04:53
Plt Count 475 10^3/uL (130-400) H 11/23/24 04:53
Sodium 130 mmol/L (135-145) L 11/23/24 04:53
Potassium 4.5 mmol/L (3.5-5.1) 11/23/24 04:53
Chloride 90 mmol/L (98-107) L 11/23/24 04:53
Carbon Dioxide 26 mmol/L (22-30) 11/23/24 04:53
BUN 42 mg/dl (9-20) H 11/23/24 04:53
Creatinine 8.9 mg/dL (0.7-1.3) H* 11/23/24 04:53
eGFR 5.59 11/23/24 04:53
Glucose 108 mg/dl (70-99) H 11/23/24 04:53
Calcium 8.6 mg/dl (8.4-10.2) 11/23/24 04:53
Albumin 3.2 g/dl (3.5-5.0) L 11/22/24 17:05
Laboratory Tests
11/12/24
04:48
Hgb 7.9 L
Sodium 131 L
Physical Exam
Patient is awake alert oriented and in no distress. Mood and affect were pleasant, insight and judgment were good. Pupils are equal round and reactive to light, extraocular movements are intact, sclera were anicteric. Hearing was normal, ears and
nose are intact. Oropharynx was clear. Neck was supple with trachea midline and no thyromegaly. Heart was regular rate and rhythm without rubs. Lower extremities without edema. Lungs were clear to auscultation bilaterally and with normal
excursion. Abdomen was soft, nontender, with normal active bowel sounds, and no hepatosplenomegaly. Skin was without rash and with normal turgor.
Data Reviewed
-
CT Scan: Report Reviewed by me (CT head 11/11/24 no acute disease, old right frontal infarct)
Medical Tests (Nuc Med, Echo etc): Image Personally Visualized and interpreted (EKG 11/22/2024 by my reading normal sinus rhythm left axis deviation first-degree AV block, incomplete right bundle branch block, anterolateral ST-T wave abnormalities,
prolonged QT) and Report Reviewed by me (Echocardiogram 07/13/2024 EF 55%, aortic sclerosis)
Labs: Labs Reviewed by me
Old Records: Reviewed
Assessment/Plan
-
Impression:
Orthostasis
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
Left carotid stenosis
End-stage renal disease on peritoneal dialysis
Hypertension
Paroxysmal atrial fibrillation
Hyperphosphatemia
Anemia
History of CABG
h/o bilat CEA at [facility]
TCAR 08/11/2024
Plan:
Midodrine 2.5 mg twice daily
Perineal dialysis ordered
1.5% Q4h exchanges, 2 L each exchange
May add IV fluids as required for hypotense episodes
Cortisol level random normal in October 2024
--- NOTE | 2024-11-23 15:03 | CARDSERVLU ---
Echocardiogram with [facility] completed after protocol screening completed. Allergies verified.
Patent IV site: __left hand__
IV site flushed with 0.9% NaCl pre and post administration.
Diluted bolus method utilized to enhance visualization of ventricular paris.
Total volume given: _1.5___ mL
Patient tolerated all procedures well without complications.
--- NOTE | 2024-11-23 17:17 | PTCARENOTE ---
Pt's assessment as documented. Aox3. Tolerating PD. To echo and US via stretcher. Care as documented. Able to make needs known, call molina within reach. Bed alarm in place for safety.
[2024-11-23] MEDS: ProAmatine 2.5 MG PO (17:45)
--- NOTE | 2024-11-23 20:05 | PTCARENOTE ---
Assumed care of pt from daniel RN. Pt AAOx3. Pleasant and agreeable to care. NSR on monitor. Provided with oral care supplies. SCDs applied. Assessment as documented. Call light in reach. Safe environment maintained.
[2024-11-24] VITALS (19 sets, daily range): BP systolic 102–174; BP diastolic 47–109; PULSE 85; O2SAT 98; BMI 22.0
[2024-11-24] MEDS: SYNTHROID 150 MCG PO (05:05)
--- NOTE | 2024-11-24 06:12 | W.PN.UPDATE ---
Update Note
Progress Note Update
Positive blood cultures x2 received with( Gram Positive Cocci in clusters), abnormal procalcitonin, leukocytosis.
Will give one dose of vanco and ID consult placed
[2024-11-24 06:18] LABS: Hematocrit 25.3 % (39.0-52.0); Hemoglobin 8.7 g/dL (13.0-18.0); Mean Corp Hgb Conc. 34.4 g/dL (33.0-37.0); Mean Corpuscular Hgb 32.8 pg (27.0-31.0); Mean Corpuscular Volume 95.5 fL (80.0-94.0); Platelet Count 342 10^3/uL (130-400); Red Blood Cell Count 2.65 10^6/uL (4.70-6.10); Red Cell Dist. Width 15.6 % (11.5-14.5); White Blood Cell Count 13.4 10^3/uL (4.8-10.8)
[2024-11-24 06:19] LABS: Troponin I 0.113 ng/ml
[2024-11-24 06:21] LABS: Blood Urea Nitrogen 38 mg/dl (9-20); Calcium 7.9 mg/dl (8.4-10.2); Carbon Dioxide 28 mmol/L (22-30); Chloride 90 mmol/L (98-107); Estimated Creatinine Clearance 6 ml/min; Glucose 91 mg/dl (70-99); Potassium 3.7 mmol/L (3.5-5.1); Sodium 126 mmol/L (135-145); eGFR 6.08
[2024-11-24 06:24] LABS: Procalcitonin 0.32 ng/ml (0.0-0.25)
--- NOTE | 2024-11-24 07:46 | PTCARENOTE ---
[facility] Downtime
There was a [facility] Client Rad Technologist Downtime on 11/24/2024 from 0100 to 11/24/2023 at 0235 . Downtime documentation of patient's care, including medication administrations, has been reconciled in the electronic record per guidelines. Refer to the
patient's paper chart under the miscellaneous tab to see printed paper medication records and downtime forms.
[2024-11-24] MEDS: NEPHROCAP 1 CAPSULE PO (08:14)
[2024-11-24] MEDS: ProAmatine 2.5 MG PO ×2 (08:14→15:20)
[2024-11-24] MEDS: PROTONIX 40 MG PO (08:14)
[2024-11-24] MEDS: LOW STRENGTH ASPIRIN 81 MG PO (08:15)
[2024-11-24] MEDS: COLACE 100 MG PO (08:15)
[2024-11-24] MEDS: ELIQUIS 2.5 MG PO ×2 (08:15→19:50)
[2024-11-24] MEDS: PACERONE 200 MG PO (08:15)
[2024-11-24] MEDS: LIPITOR 40 MG PO (08:15)
--- NOTE | 2024-11-24 09:05 | PTCARENOTE ---
Patient received from security shift supervisor. Patient resting comfortably in bed. AAO, VSS. No events noted overnight. No complaints of pain, just occasional reflux. Remains on room air. PD due this AM and following Q4 hrs exchanges. PT/OT to see today.
No test scheduled for this AM. Call molina in reach.
[2024-11-24] MEDS: VANCOCIN 275 MG IV (09:13)
--- NOTE | 2024-11-24 10:42 | PN.CDI ---
Addendum entered and electronically signed by Robin Todd MD 11/25/24 09:15:
Clinically insignificant abnormal lab value
Original Note:
CDI
- -
CDI:
Physician Documentation Request
Admit Date: 11/22/24 21:36
Dear Doctor Perez,
Please review the following and provide your response in the progress notes.
Clinical Indicators:
- Patient admit for orthostatic hypotension
- ESRD on PD
- 11/23 Nephrology 'Q4h exchanges with 2 L infusion'
- Sodium levels:
Laboratory Tests
11/22/24 11/23/24 11/24/24
17:05 04:53 05:03
Sodium 129 L 130 L 126 L
Please provide a diagnosis for the above lab values that were monitored and treatment rendered:
Hyponatremia
Clinically insignificant abnormal lab value
Other (please specify)
Use of terms such as suspected, likely, concern for, or probable (associated with a specific diagnosis that is being evaluated, monitored, or treated as if it exists) are acceptable and can be coded in the inpatient setting, when documented at the
time of discharge.
Thank you,
Kimmy Crews RN
CDI Specialist
Please use your independent medical judgment in providing your response.
--- NOTE | 2024-11-24 10:57 | PN.CDI ---
CDI
- -
CDI:
Physician Documentation Request
Admit Date: 11/22/24 21:36
Dear Doctor Perez,
Please review the following and provide your response in the progress notes.
Clinical Indicators:
- Patient admit for orthostatic hypotension
- Troponin levels:
Laboratory Tests
11/22/24 11/23/24 11/24/24
20:38 06:28 05:03
Troponin I 0.153 H* 0.129 H* 0.113 H*
Please clarify the following regarding the documented myocardial infarction
Non-ischemic myocardial injury
Clinically insignificant abnormal lab value
Other (please specify)
Use of terms such as suspected, likely, concern for, or probable (associated with a specific diagnosis that is being evaluated, monitored, or treated as if it exists) are acceptable and can be coded in the inpatient setting, when documented at the
time of discharge.
Thank you,
Kimmy Crews RN
CDI Specialist
Please use your independent medical judgment in providing your response.
--- NOTE | 2024-11-24 11:00 | PN.CDI ---
Addendum entered and electronically signed by Robin Todd MD 11/25/24 09:14:
No concern for acute coronary syndrome. Mild elevation of cardiac markers in patient with end-stage renal disease
Original Note:
CDI
- -
CDI:
Physician Documentation Request
Admit Date: 11/22/24 21:36
Dear Doctor Perez,
Please review the following and provide your response in the progress notes.
Clinical Indicators:
- Patient admit for orthostatic hypotension
- Troponin levels:
Laboratory Tests
11/22/24 11/23/24 11/24/24
20:38 06:28 05:03
Troponin I 0.153 H* 0.129 H* 0.113 H*
Please clarify the following regarding the documented elevated troponins:
Non-ischemic myocardial injury
Clinically insignificant abnormal lab value
Other (please specify)
Use of terms such as suspected, likely, concern for, or probable (associated with a specific diagnosis that is being evaluated, monitored, or treated as if it exists) are acceptable and can be coded in the inpatient setting, when documented at the
time of discharge.
Thank you,
Kimmy Crews RN
CDI Specialist
Please use your independent medical judgment in providing your response.
--- NOTE | 2024-11-24 11:30 | PHA.VAN.IN ---
Assessment
- Assessment
Renal Function: Other (PD)
Maximum Temperature: 98.6
Plan
- Plan
Initial / Loading Dose: 1250 mg (22 mg/kg) 11/24 09:13
Maintenance Regimen: dose by level
Monitoring: Random 11/25 am
Pharmacokinetics Vancomycin I
- -
Patient Age: 79
Patient Sex: Male
Vancomycin Day #: 1
Indication: Bacteremia
Requesting Provider: Dr Rosario
Pertinent Antimicrobial Allergies:
no known allergies
Height / Weight:
Height 5 ft 4 in
Actual Weight 58 kg
Pertinent Past Medical History: peritoneal dialysis
- Vital Signs / Lab Results
Temp Pulse Resp BP Pulse Ox
97.1 F 82 11 134/77 100
11/24/24 07:50 11/24/24 08:14 11/24/24 07:30 11/24/24 08:14 11/24/24 07:00
Lab Results - Hematology
11/22/24 11/23/24 11/24/24
17:05 04:53 05:03
WBC 16.4 H 14.9 H 13.4 H
Lab Results - Chemistry
11/22/24 11/23/24 11/24/24
17:05 04:53 05:03
BUN 35 H 42 H 38 H
Creatinine 7.8 H* 8.9 H* 8.3 H*
Estimated Creat Clear 6 6
Albumin 3.2 L
11/22/24 11/22/24
20:38 23:30
Lactic Acid 1.9 Cancelled
Microbiology Results
11/22/24 20:38 Blood Culture - Preliminary
Blood/Venous Positive culture in progress
Gram Stain - Preliminary
11/22/24 20:38 Blood Culture - Preliminary
Blood/Venous Positive culture in progress
Gram Stain - Preliminary
--- NOTE | 2024-11-24 13:06 | W.PN.NEPH.PH ---
Today's Communication / Plan
-
Check cell count abdominal fluid
Assessment/Plan
-
Impression:
Orthostasis
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
Left carotid stenosis
End-stage renal disease on peritoneal dialysis
Hypertension
Paroxysmal atrial fibrillation
Hyperphosphatemia
Anemia
History of CABG
h/o bilat CEA at [facility]
TCAR 08/11/2024
Plan:
Midodrine 2.5 mg twice daily
Perineal dialysis ordered
1.5% Q4h exchanges, 2 L each exchange
Cortisol level random normal in October 2024
Now with gram-positive bacteremia.
The PD fluid is clear although he is complaining of some abdominal pain. Unlikely peritonitis but I will check cell
-
-
Date of Service: November 24, 2024
CC / HPI / ROS
-
Chief Complaint:
Low blood pressure
History of Present Illness:
Peritoneal dialysis patient presents with low blood pressure found to be bacteremic
Review of Systems:
No chest pain or shortness of breath mild abdominal
Labs
-
Labs:
WBC 13.4 10^3/uL (4.8-10.8) H 11/24/24 05:03
RBC 2.65 10^6/uL (4.70-6.10) L 11/24/24 05:03
Plt Count 342 10^3/uL (130-400) D 11/24/24 05:03
Sodium 126 mmol/L (135-145) L 11/24/24 05:03
Potassium 3.7 mmol/L (3.5-5.1) 11/24/24 05:03
Chloride 90 mmol/L (98-107) L 11/24/24 05:03
Carbon Dioxide 28 mmol/L (22-30) 11/24/24 05:03
BUN 38 mg/dl (9-20) H 11/24/24 05:03
Creatinine 8.3 mg/dL (0.7-1.3) H* 11/24/24 05:03
eGFR 6.08 11/24/24 05:03
Glucose 91 mg/dl (70-99) 11/24/24 05:03
Calcium 7.9 mg/dl (8.4-10.2) L 11/24/24 05:03
Albumin 3.2 g/dl (3.5-5.0) L 11/22/24 17:05
Physical Exam
-
Vital Signs:
Vital Signs
Temp Pulse Resp BP Pulse Ox
97.1 F 82 11 134/77 100
11/24/24 07:50 11/24/24 08:14 11/24/24 07:30 11/24/24 08:14 11/24/24 07:00
Cardiovascular:: Regular rate and rhythm
Respiratory:: Bilateral: CTA
Lung Excursion:: Normal
Abdomen:: Nontender and Soft
Extremity Edema:: None: Bilateral:
Gavin Catheter: No
--- NOTE | 2024-11-24 13:22 | CON.NEURO ---
Consultation
Order
Date of Consultation: 11/24/24
Requesting Provider: Robin Todd MD
Reason for Consult: dizziness
Neurology Consultation Note.
HPI: This is a 79-year-old man who presented to [facility] on 11/22/2024 with recurrent pre/syncopal/syncopal episodes.
Mr. Valdes reports several spells of loss of consciousness or dizziness upon getting up from seated position. He states that his blood pressure has been dropping below 100(he monitors his blood pressure daily being on peritoneal dialysis in p.m.).
The patient endorses thinning of leg weakness prompting him to move from using a cane to using a walker.
No reports of headaches, change in vision, vertigo or change in sensation. He has been using compression stockings at home
Review of vital signs was notable for transient hypotension down to 69/46
EKG: NSR with first degree of AV block, QTc Int : 569 ms
PDMP:
Labs: WBC 16.4�13.4, hemoglobin�10.8�8.7, platelets 554�342, sodium 129�126, creatinine 7.8�8.3, glucose 132, troponin 0.153�0.113, free T4 (10/25/2024)�2.81(0.78-2.19)
Brain MRI without sierra (07/30/2024) MCA/[employer] territory cortical infarcts.
CD US: R carotid bulb 50-69% stenosis, patent L ICA stent.
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
PSH: L ICA stent(08/11/2024), CABG, peritoneal catheter placement; BL CEA
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
FH:Uncle- PD.
All: NKDA
ROS: Constitutional: Negative. Negative for chills, fever and unexpected weight change.
HENT: Negative for ear pain, hearing loss, tinnitus and trouble swallowing.
Eyes: Negative. Negative for photophobia, pain and visual disturbance.
Respiratory: Negative for cough, choking and shortness of breath.
Cardiovascular: Positive for near syncopal episode
Gastrointestinal: Negative for abdominal pain and vomiting.
Endocrine: Negative. Negative for cold intolerance.
Musculoskeletal: Negative for back pain, gait problem, neck pain and neck stiffness.
Skin: Negative for rash.
Allergic/Immunologic: Negative. Negative for immunocompromised state.
Neurological: Positive for leg weakness
Psychiatric/Behavioral: Negative for behavioral problems, confusion and hallucinations.
General: Well developed. In no acute distress.
Cardio: Regular rate and rhythm without murmur. Extremities are without cyanosis or edema.
Neuro:
Mental Status: Alert, oriented to person, place, and date. Normal attention and recall. Good fund of knowledge. Follows complex requests across the midline. Comprehension, naming, and repetition intact.
Cranial Nerves: Pupils are equally round and reactive to light. EOMs full. Visual vega full to confrontation. No ptosis. No nystagmus. V1-V3 intact to light touch and pinprick bilaterally, symmetric. Face symmetric. Normal hearing AU. The
palate elevated well. SCMs and traps 5/5. Tongue midline. No dysarthria.
Motor: Normal bulk and tone. No pronator or arm drift. Strength 5/5 throughout. No clonus.
Reflexes: 2+ throughout the upper extremities and knees. 2/2 in AJs. Plantar responses flexor bilaterally.
Sensory: Normal pinprick, vibration and JPS.
Coordination: No dysmetria or tremor.
Gait: deferred
Assessment and Plan:
I. Orthostatic hypotension. The above may represent side effects of medications, autonomic dysfunction or baroreceptor sensitivity, seen in elderly patients or volume depletion. Orthostatic hypotension may affect up to 20 percent of patients over
the age of 65 years.
II. History of L MCA/[employer] stroke(07/2024), s/p transcarotid left carotid artery revascularization with stent
III. PA A-Fib
-Avoid cerebral hypoperfusion
-Avoid straining, coughing, and walking in hot weather; these activities reduce venous return and worsen orthostatic hypotension
-Maintain hydration and avoiding over-heating
-Raise the head of the bed 10 to 20 degrees to decrease renal perfusion, to activating the dufso-jkknonexeav-qzrcgcmnikh system and decrease nocturnal diuresis
-Use of custom-fitted elastic stockings permits the application of graded pressure to the lower extremities and lower abdomen, to minimize peripheral blood pooling. It is essential that such stockings extend to the waist since most peripheral
pooling occurs in the splanchnic circulation.
-Avoid large meals;
-Ingest meals low in carbohydrate
-Drink water with meals
-Avoid activities or sudden standing immediately after eating
-Continue midodrine
-Continue Eliquis for secondary stroke prophylaxis
-Outpatient neurology follow-up
-Please recall neurology service with any questions or concerns
I personally reviewed all radiology and labs along with past medical records pertinent to current medical problems. Total time spent in patient care is 61 minutes.
Thank you for allowing us to participate in the care of this patient. Please do not hesitate to contact us with any questions or concerns.
Subjective/Objective
Subjective Data
Date of Service: November 24, 2024
Objective Data
Vital Signs
Temp Pulse Resp BP Pulse Ox
36.2 C 82 11 134/77 100
11/24/24 07:50 11/24/24 08:14 11/24/24 07:30 11/24/24 08:14 11/24/24 07:00
Lab Results
11/24/24 05:03
Sodium 126 mmol/L (135-145) L 11/24/24 05:03
Potassium 3.7 mmol/L (3.5-5.1) 11/24/24 05:03
BUN 38 mg/dl (9-20) H 11/24/24 05:03
Glucose 91 mg/dl (70-99) 11/24/24 05:03
Calcium 7.9 mg/dl (8.4-10.2) L 11/24/24 05:03
Patient Allergies
No Known Allergies Allergy (Verified 10/28/24 19:28)
Medications
-
Active Medications
Generic Name Dose Route Start Last Admin
Trade Name Freq PRN Reason Stop Dose Admin
Acetaminophen 1,000 mg 11/22/24 22:55
Acetaminophen 500 Mg Tablet PO 12/20/24 22:54
Q6HPRN PRN
mild pain
Al Hydroxide/Mg Carbonate 15 ml 11/22/24 22:55
Gaviscon Liquid 15 Ml Cup PO 12/20/24 22:54
QIDPRN PRN
upset stomach / indigestion
Amiodarone HCl 200 mg 11/23/24 08:00 11/24/24 08:15
Amiodarone 200 Mg Tablet PO 12/21/24 07:59 200 mg
DAILY SHARMAINE Administration
Apixaban 2.5 mg 11/23/24 08:00 11/24/24 08:15
Apixaban (Eliquis) 5 Mg Tablet PO 12/21/24 07:59 2.5 mg
BID SHARMAINE Administration
Aspirin 81 mg 11/23/24 08:00 11/24/24 08:15
Aspirin 81 Mg Chewable Tablet PO 12/21/24 07:59 81 mg
DAILY SHARMAINE Administration
Atorvastatin Calcium 40 mg 11/23/24 08:00 11/24/24 08:15
Atorvastatin (Lipitor) 40 Mg Tablet PO 12/21/24 07:59 40 mg
DAILY SHARMAINE Administration
Docusate Sodium 100 mg 11/23/24 08:00 11/24/24 08:15
Docusate Sodium 100 Mg Capsule PO 12/21/24 07:59 100 mg
DAILY SHARMAINE Administration
Vancomycin HCl 1 each/ Device 0 mls @ 0 mls/hr 11/24/24 06:50
IV
PER PROTOCOL SHARMAINE
Protocol
As Directed
Levothyroxine Sodium 150 mcg 11/23/24 06:00 11/24/24 05:05
Levothyroxine 150 Mcg Tablet PO 12/21/24 05:59 150 mcg
DAILY @ 0600 SHARMAINE Administration
Midodrine 2.5 mg 11/23/24 16:00 11/24/24 08:14
Midodrine 2.5 Mg Tablet PO 2.5 mg
BID@0800,1600 SHARMAINE Administration
Pantoprazole Sodium 40 mg 11/23/24 08:00 11/24/24 08:14
Pantoprazole 40 Mg Delayed Release Tablet PO 12/21/24 07:59 40 mg
DAILY SHARMAINE Administration
Sodium Chloride 0 flush 11/22/24 23:00
Sodium Chloride 0.9% (Flush) Syringe IV 12/20/24 22:59
PER PROTOCOL SHARMAINE
Vitamin B Complex/Vit C/Folic Acid 1 capsule 11/23/24 08:00 11/24/24 08:14
Renal Cap (Nephrocap) Capsule PO 12/21/24 07:59 1 capsule
DAILY SHARMAINE Administration
Home Medications
�Medication �Instructions �Recorded
amiodarone 200 mg tablet 200 mg PO DAILY Arrhythmia 07/28/24
atorvastatin 40 mg tablet 40 mg PO DAILY High Cholesterol 07/28/24
calcium carbonate 500 mg PO DAILY Gastrointestinal 07/28/24
Issue
cyanocobalamin (vitamin B-12) 1,000 mcg PO DAILY Supplement 07/28/24
1,000 mcg tablet
docusate sodium 100 mg capsule 100 mg PO DAILY Constipation 07/28/24
(Colace)
levothyroxine 150 mcg tablet 150 mcg PO DAILY Thyroid 07/28/24
magnesium oxide 400 mg (241.3 mg 400 mg PO DAILY Supplement 07/28/24
magnesium) tablet
vitamin B complex-vitamin C-folic 1 tab PO DAILY Supplement 07/28/24
acid 800 mcg chewable tablet
(Dialyvite 800)
apixaban 5 mg tablet (Eliquis) 2.5 mg PO BID Blood Clot 08/11/24
Prevention/Tx
pantoprazole 40 mg tablet,delayed 40 mg PO DAILY #30 tabs 08/13/24
release
acetaminophen 500 mg tablet 1,000 mg PO Q6HPRN PRN mild pain 08/20/24
(Tylenol Extra Strength)
aspirin 81 mg chewable tablet 81 mg PO DAILY Blood Clot 10/28/24
Prevention/Tx
bismuth subsalicylate 262 mg/15 mL 524 mg PO DAILYPRN PRN gi upset 11/22/24
oral suspension (Pepto-Bismol)
hydrocortisone acetate 25 mg 25 mg WA HS hemorrhoids 11/22/24
rectal suppository
wheat dextrin 1 gram tablet 1 g PO BID Supplement 11/22/24
(Benefiber (wheat dextrin))
Vital Signs and Labs
-
Vital Signs and Labs:
Vital Signs
Temp Pulse Resp BP Pulse Ox
36.3 C 82 11 134/77 100
11/24/24 11:30 11/24/24 08:14 11/24/24 07:30 11/24/24 08:14 11/24/24 07:00
Lab Results
11/24/24 05:03
Sodium 126 mmol/L (135-145) L 11/24/24 05:03
Potassium 3.7 mmol/L (3.5-5.1) 11/24/24 05:03
BUN 38 mg/dl (9-20) H 11/24/24 05:03
Glucose 91 mg/dl (70-99) 11/24/24 05:03
Calcium 7.9 mg/dl (8.4-10.2) L 11/24/24 05:03
Medications
-
Medications:
Generic Name Dose Route Start Last Admin
Trade Name Freq PRN Reason Stop Dose Admin
Acetaminophen 1,000 mg 11/22/24 22:55
Acetaminophen 500 Mg Tablet PO 12/20/24 22:54
Q6HPRN PRN
mild pain
Al Hydroxide/Mg Carbonate 15 ml 11/22/24 22:55
Gaviscon Liquid 15 Ml Cup PO 12/20/24 22:54
QIDPRN PRN
upset stomach / indigestion
Amiodarone HCl 200 mg 11/23/24 08:00 11/24/24 08:15
Amiodarone 200 Mg Tablet PO 12/21/24 07:59 200 mg
DAILY SHARMAINE Administration
Apixaban 2.5 mg 11/23/24 08:00 11/24/24 08:15
Apixaban (Eliquis) 5 Mg Tablet PO 12/21/24 07:59 2.5 mg
BID SHARMAINE Administration
Aspirin 81 mg 11/23/24 08:00 11/24/24 08:15
Aspirin 81 Mg Chewable Tablet PO 12/21/24 07:59 81 mg
DAILY SHARMAINE Administration
Atorvastatin Calcium 40 mg 11/23/24 08:00 11/24/24 08:15
Atorvastatin (Lipitor) 40 Mg Tablet PO 12/21/24 07:59 40 mg
DAILY SHARMAINE Administration
Docusate Sodium 100 mg 11/23/24 08:00 11/24/24 08:15
Docusate Sodium 100 Mg Capsule PO 12/21/24 07:59 100 mg
DAILY SHARMAINE Administration
Vancomycin HCl 1 each/ Device 0 mls @ 0 mls/hr 11/24/24 06:50
IV
PER PROTOCOL SHARMAINE
Protocol
As Directed
Levothyroxine Sodium 150 mcg 11/23/24 06:00 11/24/24 05:05
Levothyroxine 150 Mcg Tablet PO 12/21/24 05:59 150 mcg
DAILY @ 0600 SHARMAINE Administration
Midodrine 2.5 mg 11/23/24 16:00 11/24/24 08:14
Midodrine 2.5 Mg Tablet PO 2.5 mg
BID@0800,1600 SHARMAINE Administration
Pantoprazole Sodium 40 mg 11/23/24 08:00 11/24/24 08:14
Pantoprazole 40 Mg Delayed Release Tablet PO 12/21/24 07:59 40 mg
DAILY SHARMAINE Administration
Sodium Chloride 0 flush 11/22/24 23:00
Sodium Chloride 0.9% (Flush) Syringe IV 12/20/24 22:59
PER PROTOCOL SHARMAINE
Vitamin B Complex/Vit C/Folic Acid 1 capsule 11/23/24 08:00 11/24/24 08:14
Renal Cap (Nephrocap) Capsule PO 12/21/24 07:59 1 capsule
DAILY SHARMAINE Administration
Home Medications
-
Home Medications
amiodarone 200 mg tablet 200 mg PO DAILY Arrhythmia 07/28/24
atorvastatin 40 mg tablet 40 mg PO DAILY High Cholesterol 07/28/24
calcium carbonate 500 mg PO DAILY Gastrointestinal Issue 07/28/24
cyanocobalamin (vitamin B-12) 1,000 mcg tablet 1,000 mcg PO DAILY Supplement 07/28/24
docusate sodium 100 mg capsule (Colace) 100 mg PO DAILY Constipation 07/28/24
levothyroxine 150 mcg tablet 150 mcg PO DAILY Thyroid 07/28/24
magnesium oxide 400 mg (241.3 mg magnesium) tablet 400 mg PO DAILY Supplement 07/28/24
vitamin B complex-vitamin C-folic acid 800 mcg chewable tablet (Dialyvite 800) 1 tab PO DAILY Supplement 07/28/24
apixaban 5 mg tablet (Eliquis) 2.5 mg PO BID Blood Clot Prevention/Tx 08/11/24
pantoprazole 40 mg tablet,delayed release 40 mg PO DAILY #30 tabs 08/13/24
acetaminophen 500 mg tablet (Tylenol Extra Strength) 1,000 mg PO Q6HPRN PRN mild pain 08/20/24
aspirin 81 mg chewable tablet 81 mg PO DAILY Blood Clot Prevention/Tx 10/28/24
bismuth subsalicylate 262 mg/15 mL oral suspension (Pepto-Bismol) 524 mg PO DAILYPRN PRN gi upset 11/22/24
hydrocortisone acetate 25 mg rectal suppository 25 mg WA HS hemorrhoids 11/22/24
wheat dextrin 1 gram tablet (Benefiber (wheat dextrin)) 1 g PO BID Supplement 11/22/24
--- NOTE | 2024-11-24 13:27 | CON.ORTHO ---
Consultation
-
Date/Time Consultation Requested: 11/24/24, time unknown
Date/Time Consultation Performed: 11/24/24 @1315
Requesting Provider: Perez
Performing Provider: Michell Laguna PA-C, Jake Ferrer MD
Reason for Consultation: right knee pain
Consultation - Orthopedics
History
HPI: 79yo male admitted to [facility] for dizziness. He reports that he had a fall at home about 2-3 weeks ago where he landed on his right knee. He states that he had a wound to the anterior knee. He does endorse some pain to the anterior
knee. He does have home nursing who has been performing local wound care and dressing changes. He thinks the last time his home nurse changed the dressing was 11/22/24. He has good range of motion of his knee. Orthopedics has been consulted for
evaluation.
PAST MEDICAL HISTORY: history of left occipital stroke, CAD, Afib, CHF, ESRD on peritoneal dialysis, carotid stenosis, HTN, HLD, hypothyroid, anemia
PAST SURGICAL HISTORY: CABG, peritoneal dialysis catheter placement, left TCAR
SOCIAL HISTORY: former smoker, denies alcohol
FAMILY HISTORY: Noncontributory
REVIEW OF SYSTEMS: 12 point review of systems obtained and negative except those mentioned in the HPI
Allergies / Home Medications
Allergy/AdvReac Type Severity Reaction Status Date / Time
No Known Allergies Allergy Verified 10/28/24 19:28
�Medication �Instructions �Recorded
amiodarone 200 mg tablet 200 mg PO DAILY Arrhythmia 07/28/24
atorvastatin 40 mg tablet 40 mg PO DAILY High Cholesterol 07/28/24
calcium carbonate 500 mg PO DAILY Gastrointestinal 07/28/24
Issue
cyanocobalamin (vitamin B-12) 1,000 mcg PO DAILY Supplement 07/28/24
1,000 mcg tablet
docusate sodium 100 mg capsule 100 mg PO DAILY Constipation 07/28/24
(Colace)
levothyroxine 150 mcg tablet 150 mcg PO DAILY Thyroid 07/28/24
magnesium oxide 400 mg (241.3 mg 400 mg PO DAILY Supplement 07/28/24
magnesium) tablet
vitamin B complex-vitamin C-folic 1 tab PO DAILY Supplement 07/28/24
acid 800 mcg chewable tablet
(Dialyvite 800)
apixaban 5 mg tablet (Eliquis) 2.5 mg PO BID Blood Clot 08/11/24
Prevention/Tx
pantoprazole 40 mg tablet,delayed 40 mg PO DAILY #30 tabs 08/13/24
release
acetaminophen 500 mg tablet 1,000 mg PO Q6HPRN PRN mild pain 08/20/24
(Tylenol Extra Strength)
aspirin 81 mg chewable tablet 81 mg PO DAILY Blood Clot 10/28/24
Prevention/Tx
bismuth subsalicylate 262 mg/15 mL 524 mg PO DAILYPRN PRN gi upset 11/22/24
oral suspension (Pepto-Bismol)
hydrocortisone acetate 25 mg 25 mg MT HS hemorrhoids 11/22/24
rectal suppository
wheat dextrin 1 gram tablet 1 g PO BID Supplement 11/22/24
(Benefiber (wheat dextrin))
Vital Signs / Lab Results
Temp Pulse Resp BP Pulse Ox
97.1 F 82 11 134/77 100
11/24/24 07:50 11/24/24 08:14 11/24/24 07:30 11/24/24 08:14 11/24/24 07:00
11/24/24 05:03
Labs:
Blood Cultures drawn 11/22/24 show gram stain with gram positive cocci in clusters
PHYSICAL EXAM:
General: no acute distress
HEENT: NCAT, normal hearing, sclera anicteric
Heart: No JVD
Lungs: Normal work of breathing on room air
MSK: Directed exam of right knee reveals there is a healing wound to the anterior knee. No drainage. Mild erythema at the border of the wound. No effusion. ROM 0-125. calf soft and nontender. NVI distally
Assessment / Plan
ASSESSMENT/PLAN:
79yo male admitted to [facility] for dizziness. He was found to have positive blood cultures. Orthopedics has been consulted for evaluation of right knee
Right Knee Wound
--Mr. Valdes does have a healing wound to the anterior right knee. This does appear to be healing well. He has good range of motion of the knee and no effusion. No concern for septic arthritis.
--Continue with local wound care of right knee.
--Encouraged him to perform range of motion of the knee as tolerated. He may be weight bearing as tolerated to the right leg as he is able given is orthostasis
--As there is no surgical intervention needed, Orthopedics will sign off at this time. Please reach out with any additional questions or concerns.
[2024-11-24] MEDS: GAVISCON LIQUID 15 ML PO (13:50)
--- NOTE | 2024-11-24 14:22 | CON.ID ---
Consultation
-
Date/Time Consultation Requested: 11/24/24 06:50
Date/Time Consultation Performed: 11/24/24 14:42
Requesting Provider: Abraham RAMOS
Performing Provider: Dr Ang
Reason for Consultation: Positive blood cultures and elevated procalcitonin
Chief Complaint / Past History
Chief Complaint
Dizziness
History of Present Illness
Mr Valdes is a 79 year old male with ESRD on PD, stroke recent hospitalization for hemorrhoidal bleeding who presented here on 11/22 for syncope and dizziness. Dizziness progressed over the last sevral days at home. He notes dizziness when he sits
up. Oral intake has been poor due to reflux and vomiting. No abdominal pain. tried pepto bismol and then with black stool. No fevers, sweats or chills. He noted a wound on the right knee after a fall about 2-3 weeks ago, no change in range of
motion, can bear weight wound has been healing wiht wound care. Has stent in the neck, no tenderness over that. PD catheter no erythema, tenderness or drainage. No abdomianl pain.
Since arrival here he has been afebrile, bp overall stable - he was started on midodrine 2.5 mg, wbc initially 16.4, hgb 10.8, plt 554, L shift is noted, na 129 on arrival, cr 7.8, procalcitonin elevated as expected in the setting of renal failure,
CT head w/o contrast 11/11 suggestive of L subclavian steel, 11/24 peritoneal fluid sent for wbc and differential and culture, blood cultures x2 done at the same time both with CONS, repeat blood cultures were not done prior to starting vancomycin,
TTE yesterday: normal EF no valvular lesions. ID is consulted for assistance with management.
Past History
Additional Past Medical History:
Left Occipital Stroke
Severe Left Carotid Stenosis
Coronary Artery Disease s/p CABG
Paroxysmal Atrial Fibrillation
Heart Failure with Recovered Ejection Fraction
ESRD on Peritoneal Dialysis
Essential Hypertension
Hyperlipidemia
Hypothyroidism
Anemia of Chronic Kidney Disease
Additional Past Surgical History:
CABG
PD Catheter Placement
Left TCAR (08/11/24)
Allergy History:
No Known Allergies Allergy (Verified 10/28/24 19:28)
Medications Reviewed: Yes
Social History
Tobacco: Former Smoker
Alcohol: None
Family History
Family History: Not Pertinent
Review of Systems
Review of Systems
General: Negative Fever or Chills
All systems: All other systems were reviewed and were negative
Vital Signs
Temp Pulse Resp BP Pulse Ox
97.3 F 82 11 134/77 100
11/24/24 11:30 11/24/24 08:14 11/24/24 07:30 11/24/24 08:14 11/24/24 07:00
Physical Exam
Physical Exam
Constitutional: No Acute Distress
Head: Other (L neck surgical site fully healed - no erythema warmth or tenderness)
Cardiovascular: Regular Rate and S1/S2; Negative Murmur or Rub
Pulmonary: Clear and Symmetric; Negative Wheezes, Rales or Rhonchi
Gastrointestinal: Soft, Non Tender, Non Distended and Normal Bowel Sounds
Musculoskeletal: Other (right knee wound - no erythema, warmth, tenderness or drainage)
Skin: Warm and Dry; Negative Rash or Jaundice
Wound: Other (r knee eschar over the wound, surrounding pinking healing tissue noted, full range of motion, no fluctuance or tenderness)
Lines: Other (PD cath - no erythema, tenderness or drainage)
Lab / Diagnostic Study Results
11/24/24 05:03
Abs Immat Gran (auto) 0.4 10^3/uL (0-0.05) H 11/22/24 17:05
Absolute Neuts (auto) 12.8 10^3/uL (1.4-6.5) H 11/22/24 17:05
Absolute Lymphs (auto) 2.4 10^3/uL (1.2-3.4) 11/22/24 17:05
Absolute Monos (auto) 0.7 10^3/uL (0.1-0.6) H 11/22/24 17:05
Absolute Basos (auto) 0.1 10^3/uL (0-0.2) 11/22/24 17:05
Immature Gran % 2.6 % (0-0.5) H 11/22/24 17:05
Neutrophils % 77.9 % (42.2-75.2) H 11/22/24 17:05
Lymphocytes % 14.4 % (20.5-51.1) L 11/22/24 17:05
Monocytes % 4.5 % (1.7-9.3) 11/22/24 17:05
Eosinophils % 0.2 % (0-6) 11/22/24 17:05
Basophils % 0.4 % (0-2) 11/22/24 17:05
Lactic Acid Cancelled 11/22/24 23:30
Procalcitonin 0.32 ng/ml (0.0-0.25) H 11/24/24 05:03
Microbiology Results
Micro:
11/24/24 13:46 Body Fluid Culture - Pending
Peritoneal Fluid Gram Stain - Pending
11/22/24 20:38 Blood Culture - Preliminary
Blood/Venous Coagulase neg. staphylococcus
Gram Stain - Preliminary
11/22/24 20:38 Blood Culture - Preliminary
Blood/Venous Coagulase neg. staphylococcus
Gram Stain - Preliminary
Assessment / Plan
CONS Pseudobacteremia (contaminated blood cultures) vs less likely bacteremia
- unfortunately repeat blood cultures were not sent prior to starting antibiotics; I will order these now
- procalcitonin elevated as expected in the setting of renal failure
- TTE on 11/23 no evidence of valvular lesion
- PD fluid was clear, awaiting differential
- agree with vancomycin pending above workup
[2024-11-24 15:54] LABS: Hematocrit 25.3 % (39.0-52.0); Hemoglobin 8.7 g/dL (13.0-18.0)
--- NOTE | 2024-11-24 15:54 | W.PN.HOSP.TC ---
Today's Communication/Plan
-
Workup for syncope.
Continue peritoneal dialysis
Assessment / Plan
Assessment / Plan
Impression:
Recurrent syncope.
� Suspected orthostatic hypotension.
Leukocytosis.
Other conditions:
End-stage renal disease on PD.
History of occipital stroke.
Carotid artery disease�severe left carotid stenosis status post TCAR.
CAD status post CABG.
Paroxysmal atrial fibrillation
Anticoagulation with Eliquis.
CHF with improved EF.
Hypothyroidism on replacement
Anemia of chronic disease/ESRD
Recent workup for GI/hemorrhoidal bleeding status post sigmoidoscopy on 11/30
Plan:
Presentation with syncope
Suspected recurrent static hypotension.
Neurologic exam with no focal findings.
Update echo (recent on 07/29 with recovered LVEF and no significant valvular abnormalities)
Carotid ultrasound with left carotid stent in place/patent without evidence of stenosis. Calcified plaque suggestive of 50-69% stenosis in the right carotid bulb. Retrograde flow within the left vertebral artery suggestive of a left subclavian
steal.
PT eval/orthostatic vitals.
Vascular surgery/neurology evaluation
On midodrine
Teds baseline consider abdominal binder
Leukocytosis.
Afebrile.
No particular complaints for possible source.
Blood cultures pending.
Monitor closely off antibiotics.
WBC trending down prior to initiation of vancomycin for possibly positive blood cultures
Right knee open wound with no evidence of arthritis.
Blood culture 11/07 with coag negative staph suggestive of contaminant.
ID consulted.
Echocardiogram as above with no evidence of infective endocarditis.
GERD
-Continue Protonix
-Add Gaviscon prn as patient reports improvement with that medication in the past
-Diet as tolerated
ESRD on PD
-Consult Nephrology
Prior Left Occipital Stroke
Severe Left Carotid Stenosis s/p TCAR
Coronary Artery Disease s/p CABG
-Continue aspirin
Paroxysmal Atrial Fibrillation
-Continue Eliquis for anticoagulation
-Continue amiodarone
Heart Failure with Recovered Ejection Fraction
-Monitor Is&Os and Daily Weights
Hypothyroidism
-Continue levothyroxine
Anemia of Chronic Kidney Disease
-Hgb up almost 3gm from discharge 10 days ago suggesting hemoconcentration
-Continue to trend Hgb
DVT proph: Eliquis
Code Status: DNR
Anticipated Discharge: 24 - 48 hours
Subjective/Interval History
-
Date of Service: November 24, 2024
Objective Data
-
Labs:
Laboratory Results
11/24/24 11/24/24
05:03 15:35
WBC 13.4 H
Hgb 8.7 L D Pending
Hct 25.3 L Pending
Plt Count 342 D
Sodium 126 L
Potassium 3.7
Chloride 90 L
Carbon Dioxide 28
BUN 38 H
Creatinine 8.3 H*
Glucose 91
Calcium 7.9 L
Vital Signs:
Vital Signs
Temp Pulse Resp BP Pulse Ox
97.3 F 75 11 122/61 100
11/24/24 11:30 11/24/24 15:20 11/24/24 07:30 11/24/24 15:20 11/24/24 07:00
I&O
11/23/24 11/24/24 11/25/24
06:59 06:59 06:59
Intake Total 300 / 300 350 / 350
Output Total 1999 / 1999 100 / 100
Balance -1999 / -1999 200 / 200 350 / 350
Physical Exam
-
General: Well Developed and No Apparent Distress
HEENT: Normocephalic, Atraumatic and Moist Mucous Membranes
Respiratory: Clear to Auscultation
Cardiac: Regular Rhythm and S1/S2; Negative Murmur, Rub or Gallop
GI: Soft, Nontender, Nondistended and Normal Bowel Sounds; Negative Organomegaly
Rectal: Deferred by Provider
Musculoskeletal: No Clubbing, No Cyanosis and No Edema
Skin: Negative Rash
Neuro: Nonfocal/Grossly Intact
[2024-11-24 20:00] LABS: Body Fluid Mononuclear 100 %; Body Fluid Polymorphonuclear 0 %; Body Fluid WBC 3 /CUMM
[2024-11-24 20:06] LABS: Body Fluid Second Tech CMC
[2024-11-25] VITALS (20 sets, daily range): BP systolic 83–157; BP diastolic 40–135; PULSE 82–101; BMI 22.0
[2024-11-25] MEDS: SYNTHROID 150 MCG PO (05:02)
[2024-11-25 05:36] LABS: Hematocrit 22.2 % (39.0-52.0); Hemoglobin 7.7 g/dL (13.0-18.0); Mean Corp Hgb Conc. 34.7 g/dL (33.0-37.0); Mean Corpuscular Hgb 32.9 pg (27.0-31.0); Mean Corpuscular Volume 94.9 fL (80.0-94.0); Mean Platelet Volume 9.8 fL (7.4-10.4); Platelet Count 294 10^3/uL (130-400); Red Blood Cell Count 2.34 10^6/uL (4.70-6.10); Red Cell Dist. Width 15.4 % (11.5-14.5); White Blood Cell Count 12.8 10^3/uL (4.8-10.8)
--- NOTE | 2024-11-25 05:38 | PTCARENOTE ---
Pt AAOx3. PD cath remains intact, exchanges continued Q4 per orders. Pt denies complaints at this time. Assessment as documented. Call molina within reach. Bed alarm in place for pt safety. SCDs on per MD orders. Care ongoing.
[2024-11-25 05:49] LABS: Vancomycin Random 15.1 ug/ml
[2024-11-25 05:55] LABS: Blood Urea Nitrogen 38 mg/dl (9-20); Calcium 7.6 mg/dl (8.4-10.2); Carbon Dioxide 29 mmol/L (22-30); Chloride 91 mmol/L (98-107); Estimated Creatinine Clearance 7 ml/min; Glucose 104 mg/dl (70-99); Potassium 3.5 mmol/L (3.5-5.1); Sodium 126 mmol/L (135-145); eGFR 6.98
[2024-11-25] MEDS: LIPITOR 40 MG PO (07:33)
[2024-11-25] MEDS: NEPHROCAP 1 CAPSULE PO (07:33)
[2024-11-25] MEDS: ELIQUIS 2.5 MG PO ×2 (07:33→20:53)
[2024-11-25] MEDS: PACERONE 200 MG PO (07:33)
[2024-11-25] MEDS: PROTONIX 40 MG PO (07:33)
[2024-11-25] MEDS: COLACE 100 MG PO (07:33)
[2024-11-25] MEDS: ProAmatine 2.5 MG PO ×2 (07:33→15:09)
[2024-11-25] MEDS: LOW STRENGTH ASPIRIN 81 MG PO (07:33)
--- NOTE | 2024-11-25 07:34 | W.PN.UPDATE ---
Update Note
Progress Note Update
Seen and examined with TOOL SMITH's. Full consultation to follow. 79-year-old male known to me status post left TCAR for symptomatic left carotid stenosis. History of bilateral carotid endarterectomies prior. Now presents with syncope. Asked to
evaluate regarding carotids/cerebrovascular circulation. Patient notes relatively acute onset a few days ago of lightheadedness. He notes that he has pervasive symptoms of lightheadedness. No vertigo or room spinning dizziness. No double vision.
No unilateral/focal neurologic symptoms. His exam is nonfocal neurologically. He has 2+ carotid pulsations bilaterally. Right side he has 2+ radial pulse, left side nonpalpable. Hands are both pink and warm.
Ultrasound reviewed. Left-sided TCAR stent widely patent. Right side with velocity ratio elevation, but peak systolic velocities within normal limits.
Plan/ Unchanged cerebrovascular blood flow studies. Patent left TCAR stent. Right side with chronic velocity ratio elevation to the 50 to 69% stenosis range, but the peak systolic velocity is not supportive of that degree of stenosis, and in
addition his prior CT scan imaging prior to performing a left TCAR had demonstrated widely patent right carotid endarterectomy site with no internal carotid artery stenosis noted. 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 That was
seen on CT scan dated 07/30/2024. While this could result in some symptoms of VBI as his left vertebral artery is his dominant 1, this is a chronic finding and would not result in sudden onset of symptoms as such now. I do not think his symptoms
are VBI related in nature. I do not think there is much I could offer him here. Recommend full syncopal workup. I will sign off. Please call me with questions.
--- NOTE | 2024-11-25 08:04 | CON.VAS ---
Medical History
-
History of Present Illness:
79-year-old male with past medical history significant for bilateral carotid endarterectomies, left occipital stroke 07/29, left TCAR 08/[address] Nickerson, CAD status post CABG, A-fib, heart failure, end-stage renal disease on peritoneal dialysis,
hypertension, hyperlipidemia. Admitted on 11/22/2024 for recurrent syncope workup. Patient is known to the vascular service with last intervention 08/[address] Nickerson. Vascular consult today for evaluation of carotids/cerebrovascular
circulation. Patient notes relatively acute onset a few days ago of lightheadedness. He notes that he has pervasive symptoms of lightheadedness. No vertigo or room spinning dizziness. No double vision. No unilateral/focal neurologic symptoms.
His exam is nonfocal neurologically. He has 2+ carotid pulsations bilaterally. Right side he has 2+ radial pulse, left side nonpalpable. Hands are both pink and warm.
Ultrasound reviewed. Left-sided TCAR stent widely patent. Right side with velocity ratio elevation, but peak systolic velocities within normal limits.
Allergies / Home Medications
Allergy/AdvReac Type Severity Reaction Status Date / Time
No Known Allergies Allergy Verified 10/28/24 19:28
�Medication �Instructions �Recorded �Confirmed �Type
amiodarone 200 mg tablet 200 mg PO DAILY Arrhythmia 07/28/24 11/22/24 History
atorvastatin 40 mg tablet 40 mg PO DAILY High Cholesterol 07/28/24 11/22/24 History
calcium carbonate 500 mg PO DAILY Gastrointestinal 07/28/24 11/22/24 History
Issue
cyanocobalamin (vitamin B-12) 1,000 mcg PO DAILY Supplement 07/28/24 11/22/24 History
1,000 mcg tablet
docusate sodium 100 mg capsule 100 mg PO DAILY Constipation 07/28/24 11/22/24 History
(Colace)
levothyroxine 150 mcg tablet 150 mcg PO DAILY Thyroid 07/28/24 11/22/24 History
magnesium oxide 400 mg (241.3 mg 400 mg PO DAILY Supplement 07/28/24 11/22/24 History
magnesium) tablet
vitamin B complex-vitamin C-folic 1 tab PO DAILY Supplement 07/28/24 11/22/24 History
acid 800 mcg chewable tablet
(Dialyvite 800)
apixaban 5 mg tablet (Eliquis) 2.5 mg PO BID Blood Clot 08/11/24 11/22/24 History
Prevention/Tx
pantoprazole 40 mg tablet,delayed 40 mg PO DAILY #30 tabs 08/13/24 11/22/24 Rx
release
acetaminophen 500 mg tablet 1,000 mg PO Q6HPRN PRN mild pain 08/20/24 11/22/24 History
(Tylenol Extra Strength)
aspirin 81 mg chewable tablet 81 mg PO DAILY Blood Clot 10/28/24 11/22/24 History
Prevention/Tx
bismuth subsalicylate 262 mg/15 mL 524 mg PO DAILYPRN PRN gi upset 11/22/24 11/22/24 History
oral suspension (Pepto-Bismol)
hydrocortisone acetate 25 mg 25 mg MN HS hemorrhoids 11/22/24 11/22/24 History
rectal suppository
wheat dextrin 1 gram tablet 1 g PO BID Supplement 11/22/24 11/22/24 History
(Benefiber (wheat dextrin))
Review of Systems
-
History Source: Patient
All other systems: Negative unless noted
Constitutional: Reports Weight Loss
EENT: Reports No Symptoms
Respiratory: Reports No Symptoms
Cardiac: Reports No Symptoms
Vascular: Denies Leg Pain / Claudication
Musculoskeletal: Reports No Symptoms
Skin: Reports No Symptoms
Neurological: Reports Dizzy
Physical Exam
Vital Signs
Temp Pulse Resp BP Pulse Ox
98.1 F 66 9 130/54 100
11/25/24 07:22 11/25/24 07:33 11/25/24 06:00 11/25/24 07:33 11/25/24 06:00
Lab Results
11/25/24 05:09
11/25/24 05:09
Troponin I 0.113 ng/ml H* 11/24/24 05:03
Physical Exam
General: No Apparent Distress
HEENT: Normocephalic and Atraumatic
Respiratory: Non Labored Respirations
Cardiac: Negative JVD
GI: Soft and Non Tender
Musculoskeletal: No Clubbing and No Cyanosis
Skin: Warm
Neuro: Awake, Alert and Oriented
Psych: Calm
Assessment / Plan
-
Plan/ Unchanged cerebrovascular blood flow studies. Patent left TCAR stent. Right side with chronic velocity ratio elevation to the 50 to 69% stenosis range, but the peak systolic velocity is not supportive of that degree of stenosis, and in
addition his prior CT scan imaging prior to performing a left TCAR had demonstrated widely patent right carotid endarterectomy site with no internal carotid artery stenosis noted. 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 That was
seen on CT scan dated 07/30/2024. While this could result in some symptoms of VBI as his left vertebral artery is his dominant 1, this is a chronic finding and would not result in sudden onset of symptoms as such now. I do not think his symptoms
are VBI related in nature. I do not think there is much I could offer him here. Recommend full syncopal workup. I will sign off. Please call me with questions.
Data Reviewed
-
Ultrasound: Discussed with Patient
--- NOTE | 2024-11-25 08:32 | PHA.VAN.FU ---
Vancomycin Assessment / Plan
- Assessment
Hemodialysis Schedule: Other (Peritoneal Dialysis with 2 L exchanges every 4H)
In the past 24 hrs, patient has been: Afebrile
- Assessment - Therapeutic Drug Monitoring
Random Level: 15.1 - drawn ~20H after initial dose of 1250mg
- Dosing Plan
Dosing by Level: Hold off on dosing today (anticipate patient to maintain level for prolonged periods with peritoneal dialysis)
- Monitoring Plan
Random Level: 11/26 0600 to trend level and half-life
- Follow Up
Pharmacy will continue to follow.
Vancomycin Follow UP
- -
Patient Age: 79
Patient Sex: Male
Vancomycin Day #: 2
Indication: Bacteremia
Requesting Provider: Dr Rosario / Dr Ang
Pertinent Antimicrobial Allergies:
NKDA
Height / Weight:
Height 5 ft 4 in
Actual Weight 58 kg
Pertinent Past Medical History: peritoneal dialysis
- Vital Signs / Lab Results
Temp Pulse Resp BP Pulse Ox
98.1 F 66 9 130/54 100
11/25/24 07:22 11/25/24 07:33 11/25/24 06:00 11/25/24 07:33 11/25/24 06:00
Lab Results - Hematology
11/22/24 11/23/24 11/24/24
17:05 04:53 05:03
WBC 16.4 H 14.9 H 13.4 H
11/25/24
05:09
WBC 12.8 H
Lab Results - Chemistry
11/22/24 11/23/24 11/24/24
17:05 04:53 05:03
BUN 35 H 42 H 38 H
Creatinine 7.8 H* 8.9 H* 8.3 H*
Estimated Creat Clear 6 6
Albumin 3.2 L
11/25/24
05:09
BUN 38 H
Creatinine 7.4 H*
Estimated Creat Clear 7
Albumin
11/22/24 11/22/24
20:38 23:30
Lactic Acid 1.9 Cancelled
Microbiology Results
11/24/24 18:18 Gram Stain - Preliminary
Peritoneal Fluid
11/24/24 13:46 Gram Stain - Preliminary
Peritoneal Fluid
11/22/24 20:38 Blood Culture - Preliminary
Blood/Venous Coagulase neg. staphylococcus
Gram Stain - Preliminary
11/22/24 20:38 Blood Culture - Preliminary
Blood/Venous Coagulase neg. staphylococcus
Gram Stain - Preliminary
Therapeutic Drug Monitoring
Random Vancomycin 15.1 ug/ml 11/25/24 05:09
--- NOTE | 2024-11-25 09:33 | W.PN.ID1 ---
Date of Service
Date of Service: November 25, 2024
Today's Communication
CONS Pseudobacteremia (contaminated blood cultures) vs less likely bacteremia
- repeat blood cultures x2 (after vancomycin started) are in progress
- procalcitonin elevated as expected in the setting of renal failure - not a useful test in this setting
- TTE on 11/23 no evidence of valvular lesion
- PD fluid was clear and without evidence of infection
- agree with vancomycin pending above blood cultures being followed to 48 hours, then if negative will stop
- outpatient repeat a set of blood cultures in 2 weeks
Assessment / Plan
CONS Pseudobacteremia (contaminated blood cultures) vs less likely bacteremia
- repeat blood cultures x2 (after vancomycin started) are in progress
- procalcitonin elevated as expected in the setting of renal failure - not a useful test in this setting
- TTE on 11/23 no evidence of valvular lesion
- PD fluid was clear and without evidence of infection
- agree with vancomycin pending above blood cultures
Chief Complaint
-: Bacteremia
Subjective / Review of Systems
afebrile
bp stable
no complaints
Vital Signs / Physical Exam
Vital Signs
Vital Signs
Temp Pulse Resp BP Pulse Ox
98.1 F 66 9 130/54 99
11/25/24 07:22 11/25/24 07:33 11/25/24 06:00 11/25/24 07:33 11/25/24 09:30
Physical Exam
Constitutional: No Acute Distress and Chronically Ill
Cardiovascular: Regular Rate and S1/S2; Negative Murmur or Rub
Pulmonary: Clear and Symmetric; Negative Wheezes or Rales
Gastrointestinal: Soft, Non Tender, Non Distended and Normal Bowel Sounds
Skin: Warm and Dry; Negative Rash or Jaundice
Objective Data
Lab Data
Lab Results
11/25/24 05:09
02/20/25 05:09
Estimated Creat Clear 7 ml/min 11/25/24 05:09
Lactic Acid Cancelled 11/22/24 23:30
Total Bilirubin 0.5 mg/dl (0.2-1.3) 11/22/24 17:05
AST 24 U/L (17-59) 11/22/24 17:05
ALT 19 U/L (0-50) 11/22/24 17:05
Alkaline Phosphatase 85 U/L (38-126) 11/22/24 17:05
Most recent labs reviewed.
Laboratory Tests
11/24/24
18:18
Fluid WBC 3
Fluid Mononuclear Cell 100
Fl Polymorphonucl Cell 0
Fluid Other Cells Not Reportable
Fluid Diff Path Review Not Reportable
Micro Results:
11/24/24 18:18 Body Fluid Culture - Pending
Peritoneal Fluid Gram Stain - Preliminary
11/24/24 18:18 Blood Culture - Pending
Blood/Venous
11/24/24 13:46 Body Fluid Culture - Pending
Peritoneal Fluid Gram Stain - Preliminary
11/24/24 15:35 Blood Culture - Pending
Blood/Venous
11/22/24 20:38 Blood Culture - Preliminary
Blood/Venous Coagulase neg. staphylococcus
Gram Stain - Preliminary
11/22/24 20:38 Blood Culture - Preliminary
Blood/Venous Coagulase neg. staphylococcus
Gram Stain - Preliminary
Care Review
Plan reviewed with: Physician (Dr Todd - blood culture follow up )
--- NOTE | 2024-11-25 09:37 | PTCARENOTE ---
Patient received from casino shift manager. Patient resting comfortably in bed. AAO, VSS. No events noted overnight. No complaints of pain, just occasional reflux. Remains on room air. PD due this AM and following Q4 hrs exchanges. Will attempt to get
to chair although patient prefers bed. No test scheduled for this AM. Call molina in reach.
--- NOTE | 2024-11-25 10:02 | PTCARENOTE ---
PD started late, wrong dialysate in the warmer (2.5%). Correct dialysate called up and warmed (1.5), PD completed. Was set to start at 0730
--- NOTE | 2024-11-25 11:23 | W.PN.NEPH.PH ---
Today's Communication / Plan
-
Continue PD
Assessment/Plan
-
Impression:
Orthostasis
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
Left carotid stenosis
End-stage renal disease on peritoneal dialysis
Hypertension
Paroxysmal atrial fibrillation
Hyperphosphatemia
Anemia
History of CABG
h/o bilat CEA at [facility]
TCAR 08/11/2024
Plan:
Midodrine 2.5 mg twice daily= blood pressure is much better
Perineal dialysis ordered
1.5% Q4h exchanges, 2 L each exchange
Cortisol level random normal in October 2024
Now with coag negative staph bacteremia.
The PD fluid is clear although he is complaining of some abdominal pain. Unlikely peritonitis but check cell count and Gram stain pending
-
-
Date of Service: November 25, 2024
CC / HPI / ROS
-
Chief Complaint:
Low blood pressure
History of Present Illness:
Peritoneal dialysis patient presents with low blood pressure found to be bacteremic
Review of Systems:
No chest pain or shortness of breath mild abdominal
Labs
-
Labs:
WBC 12.8 10^3/uL (4.8-10.8) H 11/25/24 05:09
RBC 2.34 10^6/uL (4.70-6.10) L 11/25/24 05:09
Hgb 7.7 g/dL (13.0-18.0) L 11/25/24 05:09
Hct 22.2 % (39.0-52.0) L 11/25/24 05:09
Plt Count 294 10^3/uL (130-400) 11/25/24 05:09
Sodium 126 mmol/L (135-145) L 11/25/24 05:09
Potassium 3.5 mmol/L (3.5-5.1) 11/25/24 05:09
Chloride 91 mmol/L (98-107) L 11/25/24 05:09
Carbon Dioxide 29 mmol/L (22-30) 11/25/24 05:09
BUN 38 mg/dl (9-20) H 11/25/24 05:09
Creatinine 7.4 mg/dL (0.7-1.3) H* 11/25/24 05:09
eGFR 6.98 11/25/24 05:09
Glucose 104 mg/dl (70-99) H 11/25/24 05:09
Calcium 7.6 mg/dl (8.4-10.2) L 11/25/24 05:09
Albumin 3.2 g/dl (3.5-5.0) L 11/22/24 17:05
Physical Exam
-
Vital Signs:
Vital Signs
Temp Pulse Resp BP Pulse Ox
98.0 F 66 9 130/54 99
11/25/24 11:08 11/25/24 07:33 11/25/24 06:00 11/25/24 07:33 11/25/24 09:30
Cardiovascular:: Regular rate and rhythm
Respiratory:: Bilateral: CTA
Lung Excursion:: Normal
Abdomen:: Nontender and Soft
Extremity Edema:: None: Bilateral:
Gavni Catheter: No
--- NOTE | 2024-11-25 12:19 | WOUNDNOTE ---
[facility] RN note: Patient admitted with dizziness
See H&P for complete history.
PMH: ESRD (on PD), CAD, Afib, CHF, hypothyroidism, anemia
Wound Location and type/assessment: Patient admitted with right necrotic knee wound. Patient reports falling a few weeks ago and has been applying clean dressing daily. The wound is 100% with adherent yellow slough. Patient demonstrates ability to
bend knee, transfer to commode and turn in bed with minimal assistance. His sacrum and heels intact. Some brusing noted on rib/chest.
Appetite: Reports poor appetite.
Pressure redistribution devices in place: Centrella Max Air, heels off-loaded with pillows under calves
Plan: Will recommend Santyl to left knee and follow up at [facility]. PAUL Lyle updated on plan. Will confirm orders with hospitalist. Updated care plan and will follow as needed.
Note to case management of equipment requested for discharge:
Recommend follow up at wound care center upon discharge.
--- NOTE | 2024-11-25 15:01 | W.PN.HOSP.TC ---
Today's Communication/Plan
-
Continue vancomycin pending repeat blood culture for clearance
Monitor temperature curve
Continue PD pain
Physical therapy evaluation with option for placement to rehab.
Assessment / Plan
Assessment / Plan
Impression:
Recurrent syncope.
� Suspected orthostatic hypotension.
Leukocytosis.
Other conditions:
End-stage renal disease on PD.
History of occipital stroke.
Carotid artery disease�severe left carotid stenosis status post TCAR.
CAD status post CABG.
Paroxysmal atrial fibrillation
Anticoagulation with Eliquis.
CHF with improved EF.
Hypothyroidism on replacement
Anemia of chronic disease/ESRD
Recent workup for GI/hemorrhoidal bleeding status post sigmoidoscopy on 11/30
Plan:
Presentation with syncope
Suspected recurrent static hypotension.
Neurologic exam with no focal findings.
Update echo (recent on 07/29 with recovered LVEF and no significant valvular abnormalities)
Carotid ultrasound with left carotid stent in place/patent without evidence of stenosis. Calcified plaque suggestive of 50-69% stenosis in the right carotid bulb. Retrograde flow within the left vertebral artery suggestive of a left subclavian
steal. Vascular surgery input appreciated with no indication for intervention.
PT eval/orthostatic vitals.
Vascular surgery/neurology evaluation
On midodrine
Teds baseline consider abdominal binder
Right knee open wound with no evidence of arthritis. Continue wound care
Blood culture 11/07 with coag negative staph suggestive of contaminant.
ID consulted.
Echocardiogram as above with no evidence of infective endocarditis.
Vancomycin to be continued pending repeated blood cultures for clearance.
GERD
-Continue Protonix
-Add Gaviscon prn as patient reports improvement with that medication in the past
-Diet as tolerated
ESRD on PD
-Consult Nephrology
Prior Left Occipital Stroke
Severe Left Carotid Stenosis s/p TCAR
Coronary Artery Disease s/p CABG
-Continue aspirin
Paroxysmal Atrial Fibrillation
-Continue Eliquis for anticoagulation
-Continue amiodarone
Heart Failure with Recovered Ejection Fraction
-Monitor Is&Os and Daily Weights
Hypothyroidism
-Continue levothyroxine
Anemia of Chronic Kidney Disease
-Hgb up almost 3gm from discharge 10 days ago suggesting hemoconcentration
-Continue to trend Hgb
DVT proph: Eliquis
Code Status: DNR
Anticipated Discharge: 24 - 48 hours
Subjective/Interval History
-
Date of Service: November 25, 2024
Objective Data
-
Labs:
Laboratory Results
11/25/24
05:09
WBC 12.8 H
Hgb 7.7 L
Hct 22.2 L
Plt Count 294
Sodium 126 L
Potassium 3.5
Chloride 91 L
Carbon Dioxide 29
BUN 38 H
Creatinine 7.4 H*
Glucose 104 H
Calcium 7.6 L
Vital Signs:
Vital Signs
Temp Pulse Resp BP Pulse Ox
98.0 F 66 9 130/54 99
11/25/24 11:08 11/25/24 07:33 11/25/24 06:00 11/25/24 07:33 11/25/24 09:30
I&O
11/24/24 11/25/24 11/26/24
06:59 06:59 06:59
Intake Total 300 / 300 1230 / 1230 240 / 240
Output Total 100 / 100 500 / 500 150 / 150
Balance 200 / 200 730 / 730 90 / 90
Physical Exam
-
General: Well Developed and No Apparent Distress
HEENT: Normocephalic, Atraumatic and Moist Mucous Membranes
Respiratory: Clear to Auscultation
Cardiac: Regular Rhythm and S1/S2; Negative Murmur, Rub or Gallop
GI: Soft, Nontender, Nondistended and Normal Bowel Sounds; Negative Organomegaly
Rectal: Deferred by Provider
Musculoskeletal: No Clubbing, No Cyanosis and No Edema
Skin: Negative Rash
Neuro: Nonfocal/Grossly Intact
[2024-11-25] MEDS: SANTYL OINTMENT 1 APPLIC TOPICAL (15:10)
--- NOTE | 2024-11-25 16:45 | CM ---
Patient with Hx ESRD on PD with Dx Recurrent syncope, Suspected orthostatic hypotension. Room air. Receiving IV Abx. PT recommends skilled rehab. OT recommends SNF vs home w/assist. Seen by wound care nurse.
Met with Dr Todd & nurse Lyle; discussed patient's status and potential rehab needs. Informed MD that there are no SNFs that accept patients with PD due to amount of time nurse needs to spend doing PD. Dr Todd indicated he planned on
speaking with family about option to transition to HD.
[facility] had stated in the past that they only accepts PD patients at [facility]. He has been declined by [facility] and [facility] in the past for being too high level/not enough needs for acute rehab. Patient, son & Dtr were all
aware on prior admissions that SNF would not be an option while on PD.
Follow-up message from Dr Todd; he spoke with daughter and offered option to transition to HD, they will consider.
Plan continue to follow patient's mobility and wound care needs.
[2024-11-26] VITALS (15 sets, daily range): BP systolic 119–159; BP diastolic 45–82; PULSE 65–67; BMI 23.3
[2024-11-26] MEDS: SYNTHROID 150 MCG PO (05:59)
[2024-11-26 06:26] LABS: Hematocrit 21.9 % (39.0-52.0); Hemoglobin 7.4 g/dL (13.0-18.0); Mean Corp Hgb Conc. 33.8 g/dL (33.0-37.0); Mean Corpuscular Hgb 32.7 pg (27.0-31.0); Mean Corpuscular Volume 96.9 fL (80.0-94.0); Platelet Count 278 10^3/uL (130-400); Red Blood Cell Count 2.26 10^6/uL (4.70-6.10); Red Cell Dist. Width 15.5 % (11.5-14.5); White Blood Cell Count 12.5 10^3/uL (4.8-10.8)
[2024-11-26 06:54] LABS: Vancomycin Random 12.8 ug/ml
[2024-11-26 07:03] LABS: Blood Urea Nitrogen 35 mg/dl (9-20); Calcium 7.7 mg/dl (8.4-10.2); Carbon Dioxide 31 mmol/L (22-30); Chloride 88 mmol/L (98-107); Estimated Creatinine Clearance 7 ml/min; Glucose 82 mg/dl (70-99); Potassium 3.5 mmol/L (3.5-5.1); Sodium 127 mmol/L (135-145); eGFR 7.09
--- NOTE | 2024-11-26 08:20 | PHA.VAN.FU ---
Vancomycin Assessment / Plan
- Assessment
Hemodialysis Schedule: Other (Peritoneal Dialysis with 2 L exchanges every 4H)
WBC's are: Stable
In the past 24 hrs, patient has been: Afebrile
- Assessment - Therapeutic Drug Monitoring
Random Level: 12.8 - drawn ~25H after previous level of 15.1
Calculated ke: 0.0067
Calculated half life (H): 104
- Dosing Plan
Dosing by Level: Hold off on dosing today (patient expected to maintain level > 10 for over 30 H)
- Monitoring Plan
Random Level: 11/27 0600 to trend half-life & level
- Follow Up
Pharmacy will continue to follow.
Vancomycin Follow UP
- -
Patient Age: 79
Patient Sex: Male
Vancomycin Day #: 3
Indication: Bacteremia
Requesting Provider: Dr Rosario / Dr Ang
Pertinent Antimicrobial Allergies:
NKDA
Height / Weight:
Height 5 ft 4 in
Actual Weight 61.6 kg
Pertinent Past Medical History: peritoneal dialysis
- Vital Signs / Lab Results
Temp Pulse Resp BP Pulse Ox
98.1 F 62 15 120/52 95
11/26/24 07:47 11/26/24 05:00 11/26/24 05:00 11/26/24 04:00 11/26/24 03:30
Lab Results - Hematology
11/24/24 11/25/24 11/26/24
05:03 05:09 05:57
WBC 13.4 H 12.8 H 12.5 H
Lab Results - Chemistry
11/24/24 11/25/24 11/26/24
05:03 05:09 05:57
BUN 38 H 38 H 35 H
Creatinine 8.3 H* 7.4 H* 7.3 H*
Estimated Creat Clear 6 7 7
Microbiology Results
11/24/24 18:18 Blood Culture - Preliminary
Blood/Venous No Growth in 24 hours- Final report to follow
11/24/24 15:35 Blood Culture - Preliminary
Blood/Venous No Growth in 24 hours- Final report to follow
11/22/24 20:38 Blood Culture - Preliminary
Blood/Venous Coagulase neg. staphylococcus
Gram Stain - Preliminary
11/22/24 20:38 Blood Culture - Preliminary
Blood/Venous Coagulase neg. staphylococcus
Gram Stain - Preliminary
11/24/24 18:18 Body Fluid Culture - Preliminary
Peritoneal Fluid No Growth After 18-24 Hours
Gram Stain - Preliminary
11/24/24 13:46 Body Fluid Culture - Preliminary
Peritoneal Fluid No Growth After 18-24 Hours
Gram Stain - Preliminary
Therapeutic Drug Monitoring
Random Vancomycin 12.8 ug/ml 11/26/24 05:57
[2024-11-26] MEDS: ELIQUIS 2.5 MG PO ×2 (09:32→20:05)
[2024-11-26] MEDS: LOW STRENGTH ASPIRIN 81 MG PO (09:33)
--- NOTE | 2024-11-26 09:33 | W.PN.ID1 ---
Date of Service
Date of Service: November 26, 2024
Today's Communication
- agree with vancomycin today, tomorrow if the 11/24 blood cultures remain negative then would stop vancomcyin
- repeat at set of blood cultures outpatient in 2 weeks
Assessment / Plan
CONS Pseudobacteremia (contaminated blood cultures) vs less likely bacteremia
- repeat blood cultures x2 (after vancomycin started) are in progress
- TTE on 11/23 no evidence of valvular lesion
- PD fluid was clear and without evidence of infection
- agree with vancomycin today, tomorrow if the 11/24 blood cultures remain negative then would stop vancomcyin
- repeat at set of blood cultures outpatient in 2 weeks
- follow up with pcp
Chief Complaint
-: Bacteremia
Subjective / Review of Systems
afebrile
bp stable
had PD yesterday
no events overnight
'I feel tired'
Vital Signs / Physical Exam
Vital Signs
Vital Signs
Temp Pulse Resp BP Pulse Ox
98.1 F 76 13 130/70 96
11/26/24 07:47 11/26/24 08:00 11/26/24 08:00 11/26/24 08:00 11/26/24 08:37
Physical Exam
Constitutional: No Acute Distress
Cardiovascular: Regular Rate and S1/S2; Negative Murmur or Rub
Pulmonary: Clear and Symmetric; Negative Wheezes or Rales
Gastrointestinal: Soft, Non Tender, Non Distended and Normal Bowel Sounds
Skin: Warm and Dry; Negative Rash or Jaundice
Objective Data
Lab Data
Lab Results
11/26/24 05:57
11/26/24 05:57
Estimated Creat Clear 7 ml/min 11/26/24 05:57
Lactic Acid Cancelled 11/22/24 23:30
Total Bilirubin 0.5 mg/dl (0.2-1.3) 11/22/24 17:05
AST 24 U/L (17-59) 11/22/24 17:05
ALT 19 U/L (0-50) 11/22/24 17:05
Alkaline Phosphatase 85 U/L (38-126) 11/22/24 17:05
Most recent labs reviewed.
Micro Results:
11/22/24 20:38 Blood Culture - Preliminary
Blood/Venous Coagulase neg. staphylococcus
Gram Stain - Preliminary
11/24/24 18:18 Blood Culture - Preliminary
Blood/Venous No Growth in 24 hours- Final report to follow
11/24/24 15:35 Blood Culture - Preliminary
Blood/Venous No Growth in 24 hours- Final report to follow
11/22/24 20:38 Blood Culture - Preliminary
Blood/Venous Coagulase neg. staphylococcus
Gram Stain - Preliminary
11/24/24 18:18 Body Fluid Culture - Preliminary
Peritoneal Fluid No Growth After 18-24 Hours
Gram Stain - Preliminary
11/24/24 13:46 Body Fluid Culture - Preliminary
Peritoneal Fluid No Growth After 18-24 Hours
Gram Stain - Preliminary
[2024-11-26] MEDS: NEPHROCAP 1 CAPSULE PO (09:35)
[2024-11-26] MEDS: ProAmatine 2.5 MG PO ×2 (09:35→17:03)
[2024-11-26] MEDS: LIPITOR 40 MG PO (09:35)
[2024-11-26] MEDS: PACERONE 200 MG PO (09:36)
[2024-11-26] MEDS: SANTYL OINTMENT 1 APPLIC TOPICAL (09:36)
[2024-11-26] MEDS: PROTONIX 40 MG PO (09:36)
--- NOTE | 2024-11-26 10:41 | W.PN.NEPH.PH ---
Today's Communication / Plan
-
PD
Assessment/Plan
-
Impression:
Orthostasis
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
Left carotid stenosis
End-stage renal disease on peritoneal dialysis
Hypertension
Paroxysmal atrial fibrillation
Hyperphosphatemia
Anemia
History of CABG
h/o bilat CEA at [facility]
TCAR 08/11/2024
Plan:
Midodrine 2.5 mg twice daily continues
PD ordered
1.5% Q4h exchanges, 2 L each exchange
abx per ID
-
-
Date of Service: November 26, 2024
CC / HPI / ROS
-
Chief Complaint:
Low blood pressure
History of Present Illness:
Peritoneal dialysis patient presents with low blood pressure found to be bacteremic
BP improved with midodrine
Hgb lower at 7.4
on Abx for possible infection
PD in progress
Review of Systems:
no CP/SOB
tired, not sleeping
Labs
-
Labs:
WBC 12.5 10^3/uL (4.8-10.8) H 11/26/24 05:57
RBC 2.26 10^6/uL (4.70-6.10) L 11/26/24 05:57
Hgb 7.4 g/dL (13.0-18.0) L 11/26/24 05:57
Hct 21.9 % (39.0-52.0) L 11/26/24 05:57
Plt Count 278 10^3/uL (130-400) 11/26/24 05:57
Sodium 127 mmol/L (135-145) L 11/26/24 05:57
Potassium 3.5 mmol/L (3.5-5.1) 11/26/24 05:57
Chloride 88 mmol/L (98-107) L 11/26/24 05:57
Carbon Dioxide 31 mmol/L (22-30) H 11/26/24 05:57
BUN 35 mg/dl (9-20) H 11/26/24 05:57
Creatinine 7.3 mg/dL (0.7-1.3) H* 11/26/24 05:57
eGFR 7.09 11/26/24 05:57
Glucose 82 mg/dl (70-99) 11/26/24 05:57
Calcium 7.7 mg/dl (8.4-10.2) L 11/26/24 05:57
Albumin 3.2 g/dl (3.5-5.0) L 11/22/24 17:05
Physical Exam
-
Vital Signs:
Vital Signs
Temp Pulse Resp BP Pulse Ox
98.1 F 76 13 130/70 96
11/26/24 07:47 11/26/24 08:00 11/26/24 08:00 11/26/24 08:00 11/26/24 08:37
Respiratory:: Bilateral: Coarse
Lung Excursion:: Normal
Abdomen:: Nontender and Soft
Bowel Sounds:: Normal
Extremity Edema:: None: Bilateral:
--- NOTE | 2024-11-26 11:20 | W.PN.HOSP.TC ---
Today's Communication/Plan
-
Monitor for orthostasis and adjust midodrine.
Had been on nightly PD.
Physical therapy assessment.
IV vancomycin pending repeated blood cultures.
Disposition, most likely discharge home with physical therapy. Limited options for residential facility rehab given peritoneal dialysis. Patient would not consider transition to hemodialysis at this point.
Assessment / Plan
Assessment / Plan
Impression:
Recurrent syncope.
� Suspected orthostatic hypotension.
Leukocytosis.
Other conditions:
End-stage renal disease on PD.
History of occipital stroke.
Carotid artery disease�severe left carotid stenosis status post TCAR.
CAD status post CABG.
Paroxysmal atrial fibrillation
Anticoagulation with Eliquis.
CHF with improved EF.
Hypothyroidism on replacement
Anemia of chronic disease/ESRD
Recent workup for GI/hemorrhoidal bleeding status post sigmoidoscopy on 11/30
Plan:
Presentation with syncope
Suspected recurrent static hypotension.
Neurologic exam with no focal findings.
Update echo (recent on 07/29 with recovered LVEF and no significant valvular abnormalities)
Carotid ultrasound with left carotid stent in place/patent without evidence of stenosis. Calcified plaque suggestive of 50-69% stenosis in the right carotid bulb. Retrograde flow within the left vertebral artery suggestive of a left subclavian
steal. Vascular surgery input appreciated with no indication for intervention.
PT eval/orthostatic vitals.
Vascular surgery/neurology input appreciated with no indication for additional intervention
Continue midodrine
Right knee open wound with no evidence of arthritis. Continue wound care
Blood culture 11/07 with coag negative staph suggestive of contaminant.
ID consulted.
Echocardiogram as above with no evidence of infective endocarditis.
Vancomycin to be continued pending repeated blood cultures for clearance.
GERD
-Continue Protonix
-Add Gaviscon prn as patient reports improvement with that medication in the past
-Diet as tolerated
ESRD on PD
-Consult Nephrology
Prior Left Occipital Stroke
Severe Left Carotid Stenosis s/p TCAR
Coronary Artery Disease s/p CABG
-Continue aspirin
Paroxysmal Atrial Fibrillation
-Continue Eliquis for anticoagulation
-Continue amiodarone
Heart Failure with Recovered Ejection Fraction
-Monitor Is&Os and Daily Weights
Hypothyroidism
-Continue levothyroxine
Anemia of Chronic Kidney Disease
-Hgb up almost 3gm from discharge 10 days ago suggesting hemoconcentration
-Continue to trend Hgb
DVT proph: Eliquis
Code Status: DNR
Anticipated Discharge: 24 - 48 hours
Subjective/Interval History
-
Date of Service: November 26, 2024
Objective Data
-
Labs:
Laboratory Results
11/26/24
05:57
WBC 12.5 H
Hgb 7.4 L
Hct 21.9 L
Plt Count 278
Sodium 127 L
Potassium 3.5
Chloride 88 L
Carbon Dioxide 31 H
BUN 35 H
Creatinine 7.3 H*
Glucose 82
Calcium 7.7 L
Vital Signs:
Vital Signs
Temp Pulse Resp BP Pulse Ox
98.1 F 67 17 159/55 96
11/26/24 07:47 11/26/24 10:00 11/26/24 10:00 11/26/24 10:00 11/26/24 08:37
I&O
11/25/24 11/26/24 11/27/24
06:59 06:59 06:59
Intake Total 1230 / 1230 1170 / 1170
Output Total 500 / 500 650 / 650
Balance 730 / 730 520 / 520
Physical Exam
-
General: Well Developed and No Apparent Distress
HEENT: Normocephalic, Atraumatic and Moist Mucous Membranes
Respiratory: Clear to Auscultation
Cardiac: Regular Rhythm and S1/S2; Negative Murmur, Rub or Gallop
GI: Soft, Nontender, Nondistended and Normal Bowel Sounds; Negative Organomegaly
Rectal: Deferred by Provider
Musculoskeletal: No Clubbing, No Cyanosis and No Edema
Skin: Negative Rash
Neuro: Nonfocal/Grossly Intact
[2024-11-26] MEDS: GAVISCON LIQUID 15 ML PO (12:16)
[2024-11-26] MEDS: COLACE 100 MG PO (12:16)
--- NOTE | 2024-11-26 16:35 | CM ---
Addendum entered by Luzma Strickland RN 11/26/24 16:49:
Seen by wound care nurse
Original Note:
Patient with Hx ESRD on PD with Dx Recurrent syncope, Suspected orthostatic hypotension. Room air. Receiving Midodrine, IV Vanco. PT recommends HH. OT recommends SNF vs home w/assist.
Met with patient and daughter Alivia; patient remained sleeping throughout visit.
Daughter conveys that she, and her brother Hossein, spoke with the patient today about considering switching to HD temporarily, so he could go to SNF for rehab. Informed her that patient worked with PT/OT today and the therapists felt he could go to
SNF or home with resumption of VN.
Case discussed with Dr Todd; he spoke with the patient about switching to HD and patient told him he was not interested. Dr Todd is now aware that son & daughter spoke with patient about switching to HD.
Referral placed to [facility].
Plan follow up with patient tomorrow about possible d/c with resumption [facility].
[2024-11-27] VITALS (17 sets, daily range): BP systolic 124–165; BP diastolic 49–109; BMI 23.3
[2024-11-27] MEDS: SYNTHROID 150 MCG PO (05:03)
[2024-11-27 05:12] LABS: Hematocrit 21.5 % (39.0-52.0); Hemoglobin 7.2 g/dL (13.0-18.0); Mean Corp Hgb Conc. 33.5 g/dL (33.0-37.0); Mean Corpuscular Hgb 32.3 pg (27.0-31.0); Mean Corpuscular Volume 96.4 fL (80.0-94.0); Mean Platelet Volume 9.7 fL (7.4-10.4); Platelet Count 240 10^3/uL (130-400); Red Blood Cell Count 2.23 10^6/uL (4.70-6.10); Red Cell Dist. Width 15.6 % (11.5-14.5); White Blood Cell Count 11.4 10^3/uL (4.8-10.8)
[2024-11-27 05:45] LABS: Blood Urea Nitrogen 36 mg/dl (9-20); Calcium 7.7 mg/dl (8.4-10.2); Carbon Dioxide 32 mmol/L (22-30); Chloride 89 mmol/L (98-107); Estimated Creatinine Clearance 7 ml/min; Glucose 91 mg/dl (70-99); Potassium 3.6 mmol/L (3.5-5.1); Sodium 127 mmol/L (135-145); eGFR 7.72
[2024-11-27 05:47] LABS: Vancomycin Random 11.7 ug/ml
--- NOTE | 2024-11-27 09:00 | PHA.VAN.FU ---
Vancomycin Assessment / Plan
- Assessment
Hemodialysis Schedule: Other (Peritoneal Dialysis with 2 L exchanges every 4H)
WBC's are: Trending Down
In the past 24 hrs, patient has been: Afebrile
- Assessment - Therapeutic Drug Monitoring
Random Level: 11.7
BASED ON LAST TWO LEVELS, PT'S VANCO WILL STAY ABOVE 10 FOR ANOTHER 40HRS, CONFIRMED WITH DR. ANG THAT PATIENT DOES NOT NEED TO BE TO REDOSED TODAY
- Dosing Plan
Dosing by Level: Hold off on dosing today
- Follow Up
Pharmacy will continue to follow.
Vancomycin Follow UP
- -
Patient Age: 79
Patient Sex: Male
Vancomycin Day #: 4
Indication: Bacteremia
Requesting Provider: Dr Rosario / Dr Ang
Pertinent Antimicrobial Allergies:
NKDA
Height / Weight:
Height 5 ft 4 in
Actual Weight 61.6 kg
Pertinent Past Medical History: peritoneal dialysis
- Vital Signs / Lab Results
Temp Pulse Resp BP Pulse Ox
98.0 F 60 10 153/51 95
11/27/24 07:25 11/27/24 06:00 11/27/24 06:00 11/27/24 06:00 11/26/24 18:39
Lab Results - Hematology
11/25/24 11/26/24 11/27/24
05:09 05:57 05:02
WBC 12.8 H 12.5 H 11.4 H
Lab Results - Chemistry
11/25/24 11/26/24 11/27/24
05:09 05:57 05:02
BUN 38 H 35 H 36 H
Creatinine 7.4 H* 7.3 H* 6.8 H*
Estimated Creat Clear 7 7 7
Microbiology Results
11/24/24 13:46 Body Fluid Culture - Final
Peritoneal Fluid No Growth After 72 Hours
Gram Stain - Final
11/24/24 18:18 Body Fluid Culture - Final
Peritoneal Fluid No Growth After 72 Hours
Gram Stain - Final
11/24/24 18:18 Blood Culture - Preliminary
Blood/Venous No Growth in 48 hours- Final report to follow
11/24/24 15:35 Blood Culture - Preliminary
Blood/Venous No Growth in 48 hours- Final report to follow
11/22/24 20:38 Blood Culture - Preliminary
Blood/Venous Staphylococcus warneri
Gram Stain - Preliminary
11/22/24 20:38 Blood Culture - Preliminary
Blood/Venous Staphylococcus warneri
Gram Stain - Preliminary
Therapeutic Drug Monitoring
Random Vancomycin 11.7 ug/ml 11/27/24 05:02
[2024-11-27] MEDS: COLACE 100 MG PO (09:07)
[2024-11-27] MEDS: PROTONIX 40 MG PO (09:07)
[2024-11-27] MEDS: ProAmatine 2.5 MG PO (09:07)
[2024-11-27] MEDS: NEPHROCAP 1 CAPSULE PO (09:07)
[2024-11-27] MEDS: PACERONE 200 MG PO (09:08)
[2024-11-27] MEDS: LIPITOR 40 MG PO (09:08)
[2024-11-27] MEDS: ELIQUIS 2.5 MG PO ×2 (09:08→20:45)
[2024-11-27] MEDS: LOW STRENGTH ASPIRIN 81 MG PO (09:09)
--- NOTE | 2024-11-27 09:39 | W.PN.HOSP.TC ---
Today's Communication/Plan
-
Tx 1 unit PRBC
Follow orthostatics after transfusion.
DC home if no further interventions warranted from nephrology
PT recommends home health
Assessment / Plan
Assessment / Plan
Impression:
Recurrent syncope.
� Suspected orthostatic hypotension.
Leukocytosis.
Other conditions:
End-stage renal disease on PD.
History of occipital stroke.
Carotid artery disease�severe left carotid stenosis status post TCAR.
CAD status post CABG.
Paroxysmal atrial fibrillation
Anticoagulation with Eliquis.
CHF with improved EF.
Hypothyroidism on replacement
Anemia of chronic disease/ESRD
Recent workup for GI/hemorrhoidal bleeding status post sigmoidoscopy on 11/30
Plan:
Presentation with syncope
Suspected recurrent orthostatic hypotension.
Neurologic exam with no focal findings.
Update echo (recent on 07/29 with recovered LVEF and no significant valvular abnormalities)
Carotid ultrasound with left carotid stent in place/patent without evidence of stenosis. Calcified plaque suggestive of 50-69% stenosis in the right carotid bulb. Retrograde flow within the left vertebral artery suggestive of a left subclavian
steal. Vascular surgery input appreciated with no indication for intervention.
Vascular surgery/neurology input appreciated with no indication for additional intervention
Continue midodrine
Right knee open wound with no evidence of arthritis. Continue wound care
Blood culture / with coag negative staph suggestive of contaminant.
ID consulted.
Echocardiogram as above with no evidence of infective endocarditis.
Vancomycin to be continued pending repeated blood cultures for clearance -no growth so far.
GERD
-Continue Protonix
-Add Gaviscon prn as patient reports improvement with that medication in the past
-Diet as tolerated
ESRD on PD
-Consult Nephrology
Prior Left Occipital Stroke
Severe Left Carotid Stenosis s/p TCAR
Coronary Artery Disease s/p CABG
-Continue aspirin
Paroxysmal Atrial Fibrillation
-Continue Eliquis for anticoagulation
-Continue amiodarone
Heart Failure with Recovered Ejection Fraction
-Monitor Is&Os and Daily Weights
Hypothyroidism
-Continue levothyroxine
Anemia of Chronic Kidney Disease
-Anemia severe. 7.2.
-Hgb up almost 3gm from discharge 10 days ago suggesting hemoconcentration
-Patient denies any external bleeding. Checks heme test stools.
-Discussed with nephrology to adjust the dose of Epogen.
-Since his anemia is severe at 7.2 he would benefit a unit of transfusion and is agreeable. I feel the benefits outweigh the risk at this level of severity
DVT proph: Eliquis
Code Status: DNR
Anticipated Discharge: 24 - 48 hours
Subjective/Interval History
-
Date of Service: November 27, 2024
Wendy Jean voicing no specific complaints.
Denies any dizziness.
Denies any shortness of breath.
Patient in the recent past was admitted for severe anemia and possibility of hemorrhoidal bleed. He had a sigmoidoscopy on last admission which showed internal hemorrhoids. He had blood transfusion then. He had a colonoscopy in 2023
Since his sigmoidoscopy he says he is using Anusol suppositories and has not seen any blood further.
He is not sure how much but thinks that is getting once a month shot similar to Epogen.
Objective Data
-
Labs:
Laboratory Results
11/27/24
05:02
WBC 11.4 H
Hgb 7.2 L
Hct 21.5 L
Plt Count 240
Sodium 127 L
Potassium 3.6
Chloride 89 L
Carbon Dioxide 32 H
BUN 36 H
Creatinine 6.8 H*
Glucose 91
Calcium 7.7 L
Vital Signs:
Vital Signs
Temp Pulse Resp BP Pulse Ox
98.0 F 60 10 153/51 95
11/27/24 07:25 11/27/24 06:00 11/27/24 06:00 11/27/24 06:00 11/26/24 18:39
I&O
11/26/24 11/27/24 11/28/24
06:59 06:59 06:59
Intake Total 1170 / 1170 1425 / 1425
Output Total 650 / 650 1100 / 1100
Balance 520 / 520 325 / 325
Review of Systems
-
Constitutional: Denies Fever
Cardiac: Denies Chest Pain
Abdomen/GI: Denies Abdominal Pain, Nausea or Vomiting
Physical Exam
-
General: Comfortable
Respiratory: Clear to Auscultation and Non Labored Respirations; Negative Accessory Resp Muscle Use
Cardiac: Regular Rhythm and S1/S2; Negative Tachycardic
GI: Soft and Nontender
Neuro: AO x 3
Psych: Calm; Negative Confused
Data Reviewed
-
Labs: Labs Reviewed by me
--- NOTE | 2024-11-27 10:28 | W.PN.ID1 ---
Date of Service
Date of Service: November 27, 2024
Today's Communication
- blood cultures remain negative - stopped vancomcyin
- would repeat at set of blood cultures outpatient in 2 weeks
- follow up with pcp
Assessment / Plan
CONS Pseudobacteremia (contaminated blood cultures) vs less likely bacteremia
- repeat blood cultures x2 (after vancomycin started) are in progress NGTD
- TTE on 11/23 no evidence of valvular lesion
- PD fluid was clear and without evidence of infection
- blood cultures remain negative - stopped vancomcyin
- would repeat at set of blood cultures outpatient in 2 weeks
- follow up with pcp
Chief Complaint
-: Bacteremia
Subjective / Review of Systems
afebrile
bp stable
no events overnight
Vital Signs / Physical Exam
Vital Signs
Vital Signs
Temp Pulse Resp BP Pulse Ox
98.0 F 69 14 143/50 95
11/27/24 07:25 11/27/24 10:00 11/27/24 10:00 11/27/24 10:00 11/26/24 18:39
Physical Exam
Constitutional: No Acute Distress and Chronically Ill
Cardiovascular: Regular Rate and S1/S2; Negative Murmur or Rub
Pulmonary: Clear and Symmetric; Negative Wheezes or Rales
Gastrointestinal: Soft, Non Tender, Non Distended and Normal Bowel Sounds
Skin: Warm and Dry; Negative Rash or Jaundice
Objective Data
Lab Data
Lab Results
11/27/24 05:02
11/27/24 05:02
Estimated Creat Clear 7 ml/min 11/27/24 05:02
Lactic Acid Cancelled 11/22/24 23:30
Total Bilirubin 0.5 mg/dl (0.2-1.3) 11/22/24 17:05
AST 24 U/L (17-59) 11/22/24 17:05
ALT 19 U/L (0-50) 11/22/24 17:05
Alkaline Phosphatase 85 U/L (38-126) 11/22/24 17:05
Most recent labs reviewed.
Micro Results:
11/24/24 13:46 Body Fluid Culture - Final
Peritoneal Fluid No Growth After 72 Hours
Gram Stain - Final
11/24/24 18:18 Body Fluid Culture - Final
Peritoneal Fluid No Growth After 72 Hours
Gram Stain - Final
11/24/24 18:18 Blood Culture - Preliminary
Blood/Venous No Growth in 48 hours- Final report to follow
11/24/24 15:35 Blood Culture - Preliminary
Blood/Venous No Growth in 48 hours- Final report to follow
11/22/24 20:38 Blood Culture - Preliminary
Blood/Venous Staphylococcus warneri
Gram Stain - Preliminary
11/22/24 20:38 Blood Culture - Preliminary
Blood/Venous Staphylococcus warneri
Gram Stain - Preliminary
[2024-11-27 10:31] LABS: Iron 58 ug/dl (49-181)
[2024-11-27 10:36] LABS: Percent Saturation 31 % (20-50); Total Iron Binding Capacity 182 ug/dl (261-462)
--- NOTE | 2024-11-27 10:36 | W.PN.NEPH.PH ---
Today's Communication / Plan
-
transfuse
Assessment/Plan
-
Impression:
Orthostasis
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
Left carotid stenosis
End-stage renal disease on peritoneal dialysis
Hypertension
Paroxysmal atrial fibrillation
Hyperphosphatemia
Anemia
History of CABG
h/o bilat CEA at [facility]
TCAR 08/11/2024
Plan:
Midodrine 2.5 mg twice daily continues
PD ordered
1.5% Q4h exchanges, 2 L each exchange
abx per ID
transfuse PRBC
last mircera was in October. He should see home dialysis nurse on discharge for Nov dose of mircera
d/w patient that if he doesn't need rehab/SNF, he should stay on PD at home. Family may want him to go to SNF, but there is concerned that switching to hemodialysis may create. Another issue and that SNF facilities with onsite dialysis may not be
ideal.
-
-
Date of Service: November 27, 2024
CC / HPI / ROS
-
Chief Complaint:
Low blood pressure
History of Present Illness:
Peritoneal dialysis patient presents with low blood pressure found to be bacteremic
BP improved with midodrine
Hgb lower at 7.2
on Abx for possible infection
PD in progress
Review of Systems:
no CP/SOB
Labs
-
Labs:
WBC 11.4 10^3/uL (4.8-10.8) H 11/27/24 05:02
RBC 2.23 10^6/uL (4.70-6.10) L 11/27/24 05:02
Hgb 7.2 g/dL (13.0-18.0) L 11/27/24 05:02
Hct 21.5 % (39.0-52.0) L 11/27/24 05:02
Plt Count 240 10^3/uL (130-400) 11/27/24 05:02
Sodium 127 mmol/L (135-145) L 11/27/24 05:02
Potassium 3.6 mmol/L (3.5-5.1) 11/27/24 05:02
Chloride 89 mmol/L (98-107) L 11/27/24 05:02
Carbon Dioxide 32 mmol/L (22-30) H 11/27/24 05:02
BUN 36 mg/dl (9-20) H 11/27/24 05:02
Creatinine 6.8 mg/dL (0.7-1.3) H* 11/27/24 05:02
eGFR 7.72 11/27/24 05:02
Glucose 91 mg/dl (70-99) 11/27/24 05:02
Calcium 7.7 mg/dl (8.4-10.2) L 11/27/24 05:02
Albumin 3.2 g/dl (3.5-5.0) L 11/22/24 17:05
Physical Exam
-
Vital Signs:
Vital Signs
Temp Pulse Resp BP Pulse Ox
98.0 F 69 14 143/50 95
11/27/24 07:25 11/27/24 10:00 11/27/24 10:00 11/27/24 10:00 11/26/24 18:39
Cardiovascular:: Regular rate and rhythm
Respiratory:: Bilateral: Coarse
Lung Excursion:: Normal
Abdomen:: Nontender and Soft
Bowel Sounds:: Normal
Extremity Edema:: None: Bilateral:
[2024-11-27] MEDS: SANTYL OINTMENT 1 APPLIC TOPICAL (11:01)
--- NOTE | 2024-11-27 15:25 | PTCARENOTE ---
Assessment as documented. NSR with 1st* heart block and prolonged QT with PVC's. Unit of PRBC's infusing as ordered, pt tolerating well. Ringing appropriately; call molina and bed alarm in place.
[2024-11-27] MEDS: ProAmatine PO (18:13)
[2024-11-28] VITALS (8 sets, daily range): BP systolic 134–167; BP diastolic 46–81; BMI 23.2
--- NOTE | 2024-11-28 00:27 | PTCARENOTE ---
Pt AAOx3 able to make needs known. Pt had no complaints at this time. PD as ordered. Call molina within reach, Bed alarm on.
[2024-11-28] MEDS: SYNTHROID 150 MCG PO (06:20)
[2024-11-28 06:22] LABS: Hematocrit 24.2 % (39.0-52.0); Hemoglobin 8.4 g/dL (13.0-18.0); Mean Corp Hgb Conc. 34.7 g/dL (33.0-37.0); Mean Corpuscular Hgb 31.1 pg (27.0-31.0); Mean Corpuscular Volume 89.6 fL (80.0-94.0); Mean Platelet Volume 9.9 fL (7.4-10.4); Platelet Count 209 10^3/uL (130-400); Red Cell Dist. Width 19.3 % (11.5-14.5); White Blood Cell Count 11.3 10^3/uL (4.8-10.8)
[2024-11-28 07:22] LABS: Blood Urea Nitrogen 31 mg/dl (9-20); Calcium 7.6 mg/dl (8.4-10.2); Carbon Dioxide 29 mmol/L (22-30); Chloride 93 mmol/L (98-107); Estimated Creatinine Clearance 8 ml/min; Glucose 91 mg/dl (70-99); Potassium 3.4 mmol/L (3.5-5.1); Sodium 128 mmol/L (135-145)
[2024-11-28] MEDS: SANTYL OINTMENT 1 APPLIC TOPICAL (08:20)
[2024-11-28] MEDS: LOW STRENGTH ASPIRIN 81 MG PO (08:21)
[2024-11-28] MEDS: LIPITOR 40 MG PO (08:21)
[2024-11-28] MEDS: PACERONE 200 MG PO (08:21)
[2024-11-28] MEDS: PROTONIX 40 MG PO (08:21)
[2024-11-28] MEDS: ProAmatine 2.5 MG PO ×2 (08:21→16:12)
[2024-11-28] MEDS: NEPHROCAP 1 CAPSULE PO (08:21)
[2024-11-28] MEDS: ELIQUIS 2.5 MG PO (08:22)
[2024-11-28] MEDS: COLACE 100 MG PO (08:23)
--- NOTE | 2024-11-28 09:38 | W.PN.HOSP.TC ---
Today's Communication/Plan
-
DC
Assessment / Plan
Assessment / Plan
Impression:
Recurrent syncope.
� Suspected orthostatic hypotension.
Leukocytosis.
Other conditions:
End-stage renal disease on PD.
History of occipital stroke.
Carotid artery disease�severe left carotid stenosis status post TCAR.
CAD status post CABG.
Paroxysmal atrial fibrillation
Anticoagulation with Eliquis.
CHF with improved EF.
Hypothyroidism on replacement
Anemia of chronic disease/ESRD
Recent workup for GI/hemorrhoidal bleeding status post sigmoidoscopy on 11/30
Plan:
Presentation with syncope
Suspected recurrent orthostatic hypotension.
Nonfocal neurologically
Updated echo this admission shows EF of 60 to 65% and no significant changes compared to 07/13/2024 (recent on 07/29 with recovered LVEF and no significant valvular abnormalities)
Carotid ultrasound with left carotid stent in place/patent without evidence of stenosis. Calcified plaque suggestive of 50-69% stenosis in the right carotid bulb. Retrograde flow within the left vertebral artery suggestive of a left subclavian
steal. Vascular surgery input appreciated with no indication for intervention.
Vascular surgery/neurology input appreciated with no indication for additional intervention
Continue midodrine
Right knee open wound with no evidence of arthritis. Continue wound care
Blood culture 11/07 with coag negative staph suggestive of contaminant.
ID consulted.
Echocardiogram as above with no evidence of infective endocarditis.
Repeat culture shows no growth-vancomycin discontinued by ID. Recommends blood culture check in 2 weeks.
GERD
-Continue Protonix
-Add Gaviscon prn as patient reports improvement with that medication in the past
-Diet as tolerated
ESRD on PD
-Consult Nephrology
Prior Left Occipital Stroke
Severe Left Carotid Stenosis s/p TCAR
Coronary Artery Disease s/p CABG
-Continue aspirin
Paroxysmal Atrial Fibrillation
-Continue Eliquis for anticoagulation
-Continue amiodarone
Heart Failure with Recovered Ejection Fraction
-Monitor Is&Os and Daily Weights
Hypothyroidism
-Continue levothyroxine
Anemia of Chronic Kidney Disease
-Anemia severe. 7.2.
-Hgb up almost 3gm from discharge 10 days ago suggesting hemoconcentration
-Patient denies any external bleeding. Brown stool.
-Mircera dose to be adjusted by home PD nurse.
-Status post 1 unit of PRBC transfusion this admission with improvement.
DVT proph: Eliquis
Code Status: DNR
Patient is medically stable for discharge home with home health.
Discussed with patient about diagnosis, midodrine and follow-up plan including blood cultures.
Total time of discharge 32 minutes
Anticipated Discharge: Today
Subjective/Interval History
-
Date of Service: November 28, 2024
Patient without any further dizziness. Ambulating to the bathroom without any dizziness. Was seen by PT who recommended home health.
Voicing no specific complaints.
Tolerating diet.
No fever chills.
No shortness of breath or chest pain.
No abdominal pain.
Objective Data
-
Labs:
Laboratory Results
11/28/24
06:03
WBC 11.3 H
Hgb 8.4 L
Hct 24.2 L
Plt Count 209
Sodium 128 L
Potassium 3.4 L
Chloride 93 L
Carbon Dioxide 29
BUN 31 H
Creatinine 6.4 H*
Glucose 91
Calcium 7.6 L
Vital Signs:
Vital Signs
Temp Pulse Resp BP Pulse Ox
97.9 F 65 15 147/55 95
11/28/24 03:05 11/28/24 06:00 11/28/24 06:00 11/28/24 06:00 11/28/24 08:45
I&O
11/27/24 11/28/24 11/29/24
06:59 06:59 06:59
Intake Total 1425 / 1425 370 / 370
Output Total 1100 / 1100 600 / 600 300 / 300
Balance 325 / 325 -230 / -230 -300 / -300
Physical Exam
-
General: Comfortable
Respiratory: Clear to Auscultation and Non Labored Respirations; Negative Accessory Resp Muscle Use
Cardiac: Regular Rhythm and S1/S2; Negative Tachycardic
GI: Soft and Nontender
Neuro: AO x 3
Psych: Calm; Negative Confused
Data Reviewed
-
Labs: Labs Reviewed by me
--- NOTE | 2024-11-28 09:45 | W.PN.NEPH.PH ---
Today's Communication / Plan
-
K
Assessment/Plan
-
Impression:
Orthostasis
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
Left carotid stenosis
End-stage renal disease on peritoneal dialysis
Hypertension
Paroxysmal atrial fibrillation
Hyperphosphatemia
Anemia
History of CABG
h/o bilat [facility] at [facility]
TCAR 08/11/2024
Plan:
Midodrine 2.5 mg twice daily continues
PD ordered
1.5% Q4h exchanges, 2 L each exchange
abx per ID
replete K
last mircera was in October. He should see home dialysis nurse on discharge for Nov dose of mircera
previously d/w patient that if he doesn't need rehab/SNF, he should stay on PD at home. Family may want him to go to SNF, but there is concern that switching to hemodialysis may create. Another issue and that SNF facilities with onsite dialysis may
not be ideal.
-
-
Date of Service: November 28, 2024
CC / HPI / ROS
-
Chief Complaint:
Low blood pressure
History of Present Illness:
Peritoneal dialysis patient presents with low blood pressure found to be bacteremic
BP improved with midodrine
Hgb 8.4 after transfusion
K low 3.2
PD in progress
Review of Systems:
no CP/SOB
Labs
-
Labs:
WBC 11.3 10^3/uL (4.8-10.8) H 11/28/24 06:03
RBC 2.70 10^6/uL (4.70-6.10) L 11/28/24 06:03
Hgb 8.4 g/dL (13.0-18.0) L 11/28/24 06:03
Hct 24.2 % (39.0-52.0) L 11/28/24 06:03
Plt Count 209 10^3/uL (130-400) 11/28/24 06:03
Sodium 128 mmol/L (135-145) L 11/28/24 06:03
Potassium 3.4 mmol/L (3.5-5.1) L 11/28/24 06:03
Chloride 93 mmol/L (98-107) L 11/28/24 06:03
Carbon Dioxide 29 mmol/L (22-30) 11/28/24 06:03
BUN 31 mg/dl (9-20) H 11/28/24 06:03
Creatinine 6.4 mg/dL (0.7-1.3) H* 11/28/24 06:03
eGFR 8.30 11/28/24 06:03
Glucose 91 mg/dl (70-99) 11/28/24 06:03
Calcium 7.6 mg/dl (8.4-10.2) L 11/28/24 06:03
Albumin 3.2 g/dl (3.5-5.0) L 11/22/24 17:05
Physical Exam
-
Vital Signs:
Vital Signs
Temp Pulse Resp BP Pulse Ox
97.9 F 65 15 147/55 95
11/28/24 03:05 11/28/24 06:00 11/28/24 06:00 11/28/24 06:00 11/28/24 08:45
Cardiovascular:: Regular rate and rhythm
Respiratory:: Bilateral: CTA
Lung Excursion:: Normal
Abdomen:: Nontender and Soft
Bowel Sounds:: Normal
Extremity Edema:: None: Bilateral:
[2024-11-28] MEDS: KCL 40 MEQ PO (11:03)
--- NOTE | 2024-11-28 12:05 | PTCARENOTE ---
Patient feeling good today. Denies any nausea. Denies feeling dizzy or lightheaded. Anxious to go home today.
--- NOTE | 2024-11-28 12:08 | CM ---
Patient seen at bedside.
IMM explained & signed in chart.
Called Aida Mitchell from [facility] & updated
PLAN: Home with [facility]
daughter to transport
[employer] fax #: [phone]
--- NOTE | 2024-11-28 16:38 | W.DCSUMMARY ---
Discharge Summary
Discharge Data
Date of Admission: 11/22/24
Date of Discharge: 11/28/24
-
Pending Results: No
Hospital Course
Primary diagnosis:
Recurrent syncope suspect secondary orthostatic hypotension
Secondary diagnosis:
End-stage renal disease on peritoneal dialysis
History of occipital stroke
Carotid artery disease�severe left carotid stenosis
Coronary artery disease status post CABG.
Paroxysmal atrial fibrillation
Anticoagulation with Eliquis.
Chronic congestive heart failure with improved EF.
Hypothyroidism on replacement
Anemia of chronic disease/end-stage renal disease
Recent workup for gastrointestinal/hemorrhoidal bleeding status post sigmoidoscopy on 11/30
Hospital course:
Patient presented with syncope. He seems to have recurrent orthostatic hypotension and suspected cause of his syncope. He was started on midodrine with resolution of symptoms and improvement in orthostatic blood pressure readings. He was nonfocal
neurologically. He had an updated echo this admission which showed EF of 60 to 65% and no significant changes compared to 07/13/2024 (recent on 07/29 with recovered LVEF and no significant valvular abnormalities)Carotid ultrasound with left carotid
stent in place/patent without evidence of stenosis. Calcified plaque suggestive of 50-69% stenosis in the right carotid bulb. Retrograde flow within the left vertebral artery suggestive of a left subclavian steal. Vascular surgery input
appreciated with no indication for intervention.
Vascular surgery/neurology input appreciated with no indication for additional intervention
He has chronic anemia from end-stage renal disease. He had no obvious evidence of external bleeding. His hemoglobin was 7.2 ER and received 1 unit of transfusion on this admission.last mircera was in October. He should see home dialysis nurse on
discharge for Nov dose of mircera
He was seen by PT-recommended home health
Consultants on board:
Nephrology-Malvin Marie
Neurology-Hilda Spears
Vascular-Saulo Palomo
Discharge Plan
-
Patient Disposition: Home with Home Care
Discharge Diagnosis/Procedures: Recurrent syncope; orthostatic hypotension; ESRD on PD; Anemia s/p transfusion
Diet: 2 Gram Sodium
Activity: As tolerated
Driving Restrictions: As prior to admission
Bathing Restrictions: None
Blood Work: Blood cultures 2 sets in 2 weeks -arrange through your pcp
Other Services: PT and OT
Activity Restrictions/Additional Instructions:
Wound Care Instructions - Right knee wound- Clean with normal saline or soap and water. Apply Alex thick layer of Santyl and cover with adaptic and 4x4 silicone foam. Change daily.
Follow up at wound care center call for an appointment.
Referrals:
Iliana Hoang CRNP [Family Provider] - in less than 1 week
Prescriptions:
New
midodrine 2.5 mg Tablet
2.5 mg PO BID@0800,1600 Qty: 60 0RF
Continued
amiodarone 200 mg Tablet
200 mg PO DAILY
cyanocobalamin (vitamin B-12) 1,000 mcg Tablet
1,000 mcg PO DAILY
magnesium oxide 400 mg (241.3 mg magnesium) Tablet
400 mg PO DAILY
docusate sodium [Colace] 100 mg Capsule
100 mg PO DAILY
atorvastatin 40 mg Tablet
40 mg PO DAILY
levothyroxine 150 mcg Tablet
150 mcg PO DAILY
calcium carbonate 500 mg calcium (1,250 mg) Tablet,Chewable
500 mg PO DAILY
Dialyvite 800 800 mcg Tablet,Chewable
1 tab PO DAILY
Eliquis 5 mg tablet
2.5 mg PO BID
pantoprazole 40 mg Tablet,Delayed Release (Dr/Ec)
40 mg PO DAILY Qty: 30 0RF
acetaminophen [Tylenol Extra Strength] 500 mg Tablet
1,000 mg PO Q6HPRN PRN (Reason: mild pain)
aspirin 81 mg Tablet,Chewable
81 mg PO DAILY
bismuth subsalicylate [Pepto-Bismol] 262 mg/15 mL Suspension
524 mg PO DAILYPRN PRN (Reason: gi upset)
Benefiber (wheat dextrin) 1 gram Tablet
1 g PO BID
hydrocortisone acetate 25 mg suppository
25 mg HI HS
Discharge Orders:
Discharge Patient (As Directed); Ordered 11/28/24
Ordered By: Garland Anna
Discharge Date and Time
Print Language: KYRGYZ
== END 2024-11-28 16:13 | disposition home health service (06) | DRG 312 ==
LOC: IMU 21:36
PROVIDERS: Internal Medicine; Internal Medicine Nephrology; Nurse Practitioner Family; Physician Assistant Medical; ADMITTING PHYSICIAN Internal Medicine; ATTENDING PHYSICIAN Internal Medicine; CONSULT PHYSICIAN Orthopaedic Surgery Hand Surgery; CONSULT PHYSICIAN Psychiatry & Neurology Neurology; CONSULT PHYSICIAN Student in an Organized Health Care Education/Training Program; EMERGENCY PHYSICIAN Emergency Medicine; FAMILY PHYSICIAN Nurse Practitioner Family; OTHER PHYSICIAN Specialist
PROC: 30233N1 Transfusion of Nonautologous Red Blood Cells into Peripheral Vein, Percutaneous Approach (ICD-10-PCS; 2024-11-27)
DX: I95.1 Orthostatic hypotension (principal); N18.6 End stage renal disease; I13.2 Hypertensive heart and chronic kidney disease with heart failure and with stage 5 chronic kidney disease, or end stage renal disease; I50.22 Chronic systolic (congestive) heart failure; Z66 Do not resuscitate; D63.1 Anemia in chronic kidney disease; E03.9 Hypothyroidism, unspecified; E78.00 Pure hypercholesterolemia, unspecified; I25.10 Atherosclerotic heart disease of native coronary artery without angina pectoris; K21.9 Gastro-esophageal reflux disease without esophagitis; I48.0 Paroxysmal atrial fibrillation; I70.8 Atherosclerosis of other arteries; E83.39 Other disorders of phosphorus metabolism; E86.9 Volume depletion, unspecified; K64.8 Other hemorrhoids; S81.001A Unspecified open wound, right knee, initial encounter; Z86.73 Personal history of transient ischemic attack (TIA), and cerebral infarction without residual deficits; Z99.2 Dependence on renal dialysis; Z95.1 Presence of aortocoronary bypass graft; Z87.891 Personal history of nicotine dependence; Z79.890 Hormone replacement therapy; Z79.899 Other long term (current) drug therapy; Z79.01 Long term (current) use of anticoagulants; Z79.82 Long term (current) use of aspirin; Z95.828 Presence of other vascular implants and grafts; W19.XXXA Unspecified fall, initial encounter
CPT/HCPCS: 80048; 80053; 80202; 83540; 83550; 83605; 84145; 84484; 85014; 85018; 85025; 85027; 86850; 86900; 86901; 86920; 87015; 87040; 87070; 87147; 87150; 87186; 87205; 89051; 92526; 92610; 93005; 93306; 93880; 97163; 97167; 97530; 97535; 99285; P9016; Q9950

== ENCOUNTER → 2024-12-07 12:29 | Outpatient (REF) | payer MEDICARE, BC, SELFPAY | LOC: WOUND 12:29 | PROVIDERS: ATTENDING PHYSICIAN Surgery; FAMILY PHYSICIAN Nurse Practitioner Family | DX: L97.812 Non-pressure chronic ulcer of other part of right lower leg with fat layer exposed (principal); Z79.01 Long term (current) use of anticoagulants; I73.9 Peripheral vascular disease, unspecified; I48.91 Unspecified atrial fibrillation; N18.6 End stage renal disease; Z99.2 Dependence on renal dialysis | CPT/HCPCS: 11042; 99204 ==

== ENCOUNTER 2024-12-10 00:49 | Inpatient (IN) | payer MEDICARE, BC, SELFPAY ==
[2024-12-09] VITALS (11 sets, daily range): BP systolic 79–115; BP diastolic 39–70; PULSE 63–66; BMI 21.7
[2024-12-09 21:19] LABS: % Basophils 0.8 % (0-2); % Eosinophils 1.6 % (0-6); % Immature Granulocytes 1.3 % (0-0.5); % Lymphocytes 16.9 % (20.5-51.1); % Monocytes 6.1 % (1.7-9.3); % Neutrophils 73.3 % (42.2-75.2); Absolute Basophils 0.1 10^3/uL (0-0.2); Absolute Eosinophils 0.2 10^3/uL (0-0.7); Absolute Immature Granulocytes 0.2 10^3/uL (0-0.05); Absolute Lymphocytes 2.1 10^3/uL (1.2-3.4); Absolute Monocytes 0.8 10^3/uL (0.1-0.6); Hematocrit 32.4 % (39.0-52.0); Hemoglobin 10.7 g/dL (13.0-18.0); Mean Corpuscular Hgb 30.9 pg (27.0-31.0); Mean Corpuscular Volume 93.6 fL (80.0-94.0); Mean Platelet Volume 9.7 fL (7.4-10.4); Nucleated Red Blood Cells % 0.2 % (-); Platelet Count 353 10^3/uL (130-400); Red Blood Cell Count 3.46 10^6/uL (4.70-6.10); Red Cell Dist. Width 17.9 % (11.5-14.5); White Blood Cell Count 12.3 10^3/uL (4.8-10.8)
[2024-12-09 22:17] LABS: ALT (SGPT) 25 U/L (0-50); AST (SGOT) 26 U/L (17-59); Albumin 3.2 g/dl (3.5-5.0); Alkaline Phosphatase 117 U/L (38-126); Blood Urea Nitrogen 30 mg/dl (9-20); Calcium 8.3 mg/dl (8.4-10.2); Carbon Dioxide 24 mmol/L (22-30); Chloride 93 mmol/L (98-107); Estimated Creatinine Clearance 7 ml/min; Glucose 115 mg/dl (70-99); Sodium 129 mmol/L (135-145); Total Bilirubin 0.6 mg/dl (0.2-1.3); Total Protein 5.4 g/dl (6.3-8.2); eGFR 6.87
--- NOTE | 2024-12-09 22:58 | ED.GENMED ---
History of Present Illness
General
Chief Complaint: Fainting/Passed Out
Source: patient and ambulance crew
Time Seen by Provider: 12/09/24 21:14
History of Present Illness
History of Present Illness:
79-year-old male with a history of chronic renal failure on peritoneal dialysis, atrial fibrillation on Eliquis and history of congestive heart failure who presents after he had syncopal events at home due to hypotension. The patient states that he
had been off his lisinopril due to previous hypotensive events. Today's blood pressure was noted to be 180 systolic. He states he does not remember that it was high yesterday but a home care nurse called his doctor and advised him to take a dose
of his lisinopril. Subsequently, he became hypotensive. The patient on my evaluation just reports feeling tired. No chest pain. No abdominal pain. No fevers.
Past History
Past History
ED Past Medical History: CVA (Chronic right frontal, acute left occipital and frontal), HTN, Hypercholesterolemia and Other (Renal failure/peritoneal dialysis, left internal carotid artery stenosis, recurrent hypotension/orthostasis)
ED Past Surgical History: Other (Dialysis catheter)
Social History
Tobacco: Non-smoker
Alcohol: None
Family History
Family History: Other (Reviewed and noncontributory)
Phy Exam
Physical Exam
Physical Exam:
CONSTITUTIONAL Patient alert and oriented to person, place and time. Well-appearing. Vital signs reviewed.
HEAD atraumatic, normocephalic.
EYES eyelids normal to inspection, Extraocular muscles intact, Conjunctiva normal, Sclera normal.
NECK normal range of motion, Trachea midline, no jugular venous distention.
RESPIRATORY CHEST No respiratory distress noted, Chest expansion equal, Bilateral breath sounds clear.
CARDIOVASCULAR regular rate and rhythm, Heart sounds normal.
ABDOMEN abdomen nontender, Bowel sounds normal. No distention.
BACK normal inspection, no obvious deformities
UPPER EXTREMITY range of motion normal, Motor strength normal, no cyanosis, no edema.
LOWER EXTREMITY range of motion normal, Motor strength normal, no cyanosis, no edema.
NEURO Speech normal, No focal motor deficits, Chaya coma scale 15, Memory normal, Cranial Nerves intact to screening exam.
SKIN skin warm, dry, and normal in color.
Course
Orders/Labs/Results
Orders:
Orders
12/09/24 21:00
Electrocardiogram (*1) Urgent
Reason for Study: Syncope
EKG- Treatment ONCE
12/09/24 21:10
Complete Blood Count/With Diff Urgent
12/09/24 21:52
Comprehensive Metabolic Panel Urgent
12/09/24 22:53
Orthostatic VS- Treatment ONCE
12/09/24 23:12
Metoclopramide [Reglan] 10 mg IV NOW STA
Abnormal Lab Results
12/09/24 12/09/24
21:10 21:52
WBC 12.3 H 10^3/uL
(4.8-10.8)
RBC 3.46 L 10^6/uL
(4.70-6.10)
Hgb 10.7 L g/dL
(13.0-18.0)
Hct 32.4 L %
(39.0-52.0)
RDW 17.9 H %
(11.5-14.5)
Abs Immat Gran (auto) 0.2 H 10^3/uL
(0-0.05)
Absolute Neuts (auto) 9.0 H 10^3/uL
(1.4-6.5)
Absolute Monos (auto) 0.8 H 10^3/uL
(0.1-0.6)
Immature Gran % 1.3 H %
(0-0.5)
Lymphocytes % 16.9 L %
(20.5-51.1)
Sodium 129 L mmol/L
(135-145)
Potassium 3.0 L mmol/L
(3.5-5.1)
Chloride 93 L mmol/L
(98-107)
BUN 30 H mg/dl
(9-20)
Creatinine 7.5 H* mg/dL
(0.7-1.3)
Glucose 115 H mg/dl
(70-99)
Calcium 8.3 L mg/dl
(8.4-10.2)
Total Protein 5.4 L g/dl
(6.3-8.2)
Albumin 3.2 L g/dl
(3.5-5.0)
12/09/24 21:10
12/09/24 21:52
Vital Signs
Initial and Last Documented VS:
Initial Vital Signs
Pulse Resp BP Pulse Ox
61 15 87/41 99
12/09/24 21:02 12/09/24 21:02 12/09/24 21:02 12/09/24 21:02
Last Documented Vital Signs
Temp Pulse Resp BP Pulse Ox
97.6 F 60 10 101/45 100
12/09/24 21:11 12/09/24 22:45 12/09/24 22:45 12/09/24 22:30 12/09/24 22:45
MDM/Problems Addressed
MDM/Problems Addressed:
Hypotension
*Pulse Oximetry
Patient hypoxic: no
*EKG
Interpreted by ED Provider?: Yes
Interpretation: abnormal
Rate: normal
Rhythm: a-fib (A-fib versus junctional)
[employer]: left axis deviation
Interval: long QT
Ischemia: non-specific ST changes
*[employer] Interpretation
Rate: bradycardiac
Interpretation: abnormal
Rhythm: a-fib
*Critical Care Note
Total Time (30-74mins, 75-104mins- exclusive of procedures): 30-minute
Data Reviewed
Review of Other/Old Records Reveals: Discharge Summary and Other (Previous echocardiogram reviewed revealing EF 60 to 65%)
Source: patient
Prescriptions/Medications Considered But Not Given:
Consider vasopressors but patient asymptomatic at this time. Blood pressure improved
Patient Management
Escalation/DeEscalation of care consider admission/obs:
Given IV fluids by EMS. Blood pressure improved. Plan to check orthostatic hypotension. In the past his hypotension persisted with standing. Given his dose of lisinopril may benefit from overnight monitor
2316 patient reassessed and attempted to sit up to check orthostatic vitals and immediately vomited and pressure dropped to 80. Need to be somewhat cautious in light of his renal failure with IV fluids. Treat nausea at this time. Admit
ED Attending Note
-
Portions of this chart may have been created with voice recognition software.� Occasional wrong word or��sound alike� substitutions may have occurred due to the inherent limitations of voice recognition software.
Discharge Plan
Departure
Patient Disposition: Admit
Date of Disposition: 12/09/24
Time of Disposition: 23:17
Admit to: Telemetry
Presentation/result/management discussed w/ accepting MD/DO: Hospitalist
Discharge Problem:
Syncope, Recurrent orthostatic hypotension
Prescriptions:
No Action
amiodarone 200 mg Tablet
200 mg PO DAILY
cyanocobalamin (vitamin B-12) 1,000 mcg Tablet
1,000 mcg PO DAILY
magnesium oxide 400 mg (241.3 mg magnesium) Tablet
400 mg PO DAILY
docusate sodium [Colace] 100 mg Capsule
100 mg PO DAILY
atorvastatin 40 mg Tablet
40 mg PO DAILY
levothyroxine 150 mcg Tablet
150 mcg PO DAILY
calcium carbonate 500 mg calcium (1,250 mg) Tablet,Chewable
500 mg PO DAILY
Dialyvite 800 800 mcg Tablet,Chewable
1 tab PO DAILY
Eliquis 5 mg tablet
2.5 mg PO BID
pantoprazole 40 mg Tablet,Delayed Release (Dr/Ec)
40 mg PO DAILY Qty: 30 0RF
acetaminophen [Tylenol Extra Strength] 500 mg Tablet
1,000 mg PO Q6HPRN PRN (Reason: mild pain)
aspirin 81 mg Tablet,Chewable
81 mg PO DAILY
bismuth subsalicylate [Pepto-Bismol] 262 mg/15 mL Suspension
524 mg PO DAILYPRN PRN (Reason: gi upset)
Benefiber (wheat dextrin) 1 gram Tablet
1 g PO BID
hydrocortisone acetate 25 mg suppository
25 mg MO HS
midodrine 2.5 mg Tablet
2.5 mg PO BID@0800,1600 Qty: 60 0RF
Referrals:
Iliana Hoang CRNP [Family Provider] -
Interventions
Interventions:
*Risk Screen - Suicide Last Done: 12/09/24 21:07
*General Assessment Last Done: 12/09/24 21:07
*Neglect/Abuse Screening Last Done: 12/09/24 21:07
*ED- Fall Risk Assessment Last Done: 12/09/24 21:07
*ED COVID-19 Vaccine History Last Done: 12/09/24 21:07
ED- Cardiac Assessment Last Done: 12/09/24 21:32
ED- Neurological Assessment Last Done: 12/09/24 21:32
Discharge Date and Time
Print Language: CZECH
--- NOTE | 2024-12-09 23:22 | HPS.HSE ---
Addendum entered and electronically signed by Tito Fishman DO 12/10/24 00:26:
Patient seen and examined independently. Agree with findings and plan as set forth by LUZ MARIA Watts.
Patient is a 79y M with PMH significant for ESRD on PD and recent hospitalization for orthostatic hypotension who presents to ED for evaluation of syncope. Patient was admitted to 11/22 - 11/28 for lightheadedness. He was started on midodrine
and his BP med regimen adjusted to avoid hypotension. Patient states that he was feeling fairly well at discharge. He notes that he was instructed to discontinue the midodrine about one week ago due to elevated blood pressures at home. Today, he
was called by his PCP and advised to restart lisinopril (which had been discontinued during recent hospitalization). Apparently, VN notified his PCP that patient's BP had been elevated at home for the past two days.
Patient took his dose of lisinopril this evening. He got up to use the bathroom this evening, and had multiple episodes of syncope. His daughter was present / assisted him during this period and he denies any significant injury or trauma.
Patient states that he had about 3 episodes of loss of consciousness when trying to stand / ambulate and ultimately EMS was called.
Ass:
Syncope
Orthostatic Hypotension
ESRD on PD
Chronic Hyponatremia
Hypokalemia
Paroxysmal Atrial Fibrillation
Chronic HFrEF
Hypothyroidism
Anemia of CKD
GERD
ASCVD / Prior CVA
Plan:
Observe for further evaluation and treatment.
Hold further lisinopril.
Restart midodrine 2.5mg BID.
TEDs stockings. PT eval.
Nephrology eval for PD needs during hospital stay.
Original Note:
Family Physician
-
Family Physician: LUZ MARIA Wolfe
Chief Complaint
-
syncopal episode
History of Present Illness
Patient is a 79-year-old male with past medical history significant for ESRD on peritoneal dialysis, hypothyroidism, hypertension, atrial fibrillation, CAD and depression/anxiety who presented to [facility] ED for evaluation of syncopal
episode. Patient reports that he got up to go to the bathroom this afternoon became dizzy and diaphoretic and had a syncopal episode. He reports daughter was present and he never actually fell. Denies any injuries. He reports he had approximately 3
episodes prior to his daughter calling EMS. EMS administered IVF and patient received approximately 750mLs. Patient stated that his home health nurse called his primary doctor this morning for an elevated SBP in the 180s and the primary provider
instructed her to have patient restart lisinopril, he took one dose prior to syncopal episode. Patient report mild nausea here during assessment, denies any other symptoms at this time.
Medical History
Past Medical History
Past Medical History: Reports Other
Additional Past Medical History:
Left Occipital Stroke
Severe Left Carotid Stenosis
Coronary Artery Disease s/p CABG
Paroxysmal Atrial Fibrillation
Heart Failure with Recovered Ejection Fraction
ESRD on Peritoneal Dialysis
Essential Hypertension
Hyperlipidemia
Hypothyroidism
Anemia of Chronic Kidney Disease
Past Surgical History: Reports Other
Additional Past Surgical History:
CABG
PD Catheter Placement
Left TCAR (08/11/24)
Social History
Tobacco: Former Smoker (Quit 5 years ago. > 40 pack years total use.)
Alcohol: None
Living: With Family
Employment: Retired
Family History
Family History: Not pertinent
Allergies / Home Medications
Allergies reflects when Allergies were last updated in [employer].
Home Medications with original date entered in [employer]
Allergy/Medication List:
Allergies
Allergy/AdvReac Type Severity Reaction Status Date / Time
No Known Allergies Allergy Verified 10/28/24 19:28
Home Medications
amiodarone 200 mg tablet 200 mg PO DAILY Arrhythmia 07/28/24
atorvastatin 40 mg tablet 40 mg PO DAILY High Cholesterol 07/28/24
calcium carbonate 500 mg PO DAILY Gastrointestinal Issue 07/28/24
cyanocobalamin (vitamin B-12) 1,000 mcg tablet 1,000 mcg PO DAILY Supplement 07/28/24
docusate sodium 100 mg capsule (Colace) 100 mg PO DAILY Constipation 07/28/24
levothyroxine 150 mcg tablet 150 mcg PO DAILY Thyroid 07/28/24
magnesium oxide 400 mg (241.3 mg magnesium) tablet 400 mg PO DAILY Supplement 07/28/24
vitamin B complex-vitamin C-folic acid 800 mcg chewable tablet (Dialyvite 800) 1 tab PO DAILY Supplement 07/28/24
apixaban 5 mg tablet (Eliquis) 2.5 mg PO BID Blood Clot Prevention/Tx 08/11/24
pantoprazole 40 mg tablet,delayed release 40 mg PO DAILY #30 tabs 08/13/24
acetaminophen 500 mg tablet (Tylenol Extra Strength) 1,000 mg PO Q6HPRN PRN mild pain 08/20/24
aspirin 81 mg chewable tablet 81 mg PO DAILY Blood Clot Prevention/Tx 10/28/24
hydrocortisone acetate 25 mg rectal suppository 25 mg [place] DAILYPRN PRN hemorrhoid 11/22/24
wheat dextrin 1 gram tablet (Benefiber (wheat dextrin)) 1 g PO BID Supplement 11/22/24
collagenase clostridium histo. 250 unit/gram topical ointment (Santyl) 1 applic topical DAILY 12/09/24
lisinopril 20 mg tablet 20 mg PO DAILY 12/09/24
mirtazapine 15 mg tablet 15 mg PO DAILY 12/09/24
sennosides 8.6 mg-docusate sodium 50 mg tablet (Senokot-S) 1 tab-cap PO DAILYPRN PRN constipation 12/09/24
Review of Systems
-
History Source: Patient
Constitutional: Reports No Symptoms
EENT: Reports No Symptoms
Respiratory: Reports No Symptoms
Cardiac: Reports Diaphoresis
Abdomen/GI: Reports Nausea
: Reports No Symptoms
Musculoskeletal: Reports No Symptoms
Skin: Reports No Symptoms
Neurological: Reports Dizzy and Weakness
Endocrine: Reports No Symptoms
Hematologic/Lymphatic: Reports No Symptoms
Psych: Reports No Symptoms
Physical Exam
Vital Signs
Vital Signs
Temp Pulse Resp BP Pulse Ox
97.6 F 60 10 101/45 100
12/09/24 21:11 12/09/24 22:45 12/09/24 22:45 12/09/24 22:30 12/09/24 22:45
Physical Exam
General: Well Developed, No Apparent Distress, Comfortable, Conversant and Appears Chronically Ill
HEENT: NormoCephalic, Moist mucous membranes, Atraumatic, Hungry Horse Conjunctivae, Nose Appears Normal and Ears Appear Normal
Respiratory: Clear and Non Labored Respirations
Cardiac: S1/S2 and Regular Rhythm; No Murmur, Rub or Gallop
Breast: Deferred by me
GI: Soft, Non Tender, Non Distended and Normal Bowel Sounds; No Organomegaly
Rectal: Deferred by Provider
Genito-urinary: Deferred by me
Musculoskeletal: No Clubbing, No Cyanosis and No Edema
Skin: No Rash
Neuro: Awake, Alert, AO x 3 and Nonfocal/grossly intact
Psych: Calm
Laboratory Results
-
12/09/24 21:10
12/09/24 21:52
Laboratory Results
Total Bilirubin 0.6 mg/dl (0.2-1.3) 12/09/24 21:52
AST 26 U/L (17-59) 12/09/24 21:52
ALT 25 U/L (0-50) 12/09/24 21:52
Alkaline Phosphatase 117 U/L (38-126) 12/09/24 21:52
Data Reviewed
-
Medical Tests (Nuc Med, Echo, EKG etc): Report Reviewed by me (EKG: JUNCTIONAL RHYTHM LEFT AXIS DEVIATION NONSPECIFIC ST AND T WAVE ABNORMALITY)
Lab Data: Labs Reviewed by me
Impression/Plan
-
IMPRESSION/PLAN:
#systematic orthostatic hypotension
Orthostatic VS: Supine BP: 95/42 HR: 63
Sitting BP: 80/42 HR: 66
syncopal episode at home
- Admit to telemetry
- received approximate 750cc IVF
- continue midodrine 2.5mg BID
- orthostatic VS
- TEDS
- PT/OT consult
#ESRD on Peritoneal Dialysis
BUN 30, Creat 7.5
- consult nephrology for peritoneal dialysis
#hyponatremia
Na+ 129
- monitor BMP
#hypokalemia
K+ 3.0
- monitor BMP
- replete as indicated
#paroxysmal atrial fibrillation
- continue amiodarone and Eliquis
#HFrEF
- daily weights
#hypothyroidism
- continue levothyroxine
#anemia
hgb 10.7, hct 32.4
- stable
- monitor H/H
#GERD
- continue pantoprazole
#left Occipital Stroke
severe left carotid stenosis s/p TCAR
coronary artery disease s/p CABG
- continue aspirin
Code status: DNR
DVT prophylaxis: Eliquis
[2024-12-09] MEDS: REGLAN 10 MG IV (23:23)
[2024-12-10] VITALS (34 sets, daily range): BP systolic 71–131; BP diastolic 36–64; PULSE 75; O2SAT 98; BMI 20.9
[2024-12-10] MEDS: NSS 250 IV (03:11)
--- NOTE | 2024-12-10 03:17 | W.PN.UPDATE ---
Update Note
Progress Note Update
Asked by RN to see patient after he had an episode of diarrhea on the toilet and needed max assist to return to stretcher. BP 87/45, MAP 58. Ordered 250 ml bolus and midodrine 2.5 mg PO x 1. Repeat BP after bolus
[2024-12-10 07:04] LABS: Hematocrit 30.4 % (39.0-52.0); Hemoglobin 10.2 g/dL (13.0-18.0); Mean Corp Hgb Conc. 33.6 g/dL (33.0-37.0); Mean Corpuscular Hgb 30.4 pg (27.0-31.0); Mean Corpuscular Volume 90.7 fL (80.0-94.0); Mean Platelet Volume 9.7 fL (7.4-10.4); Platelet Count 357 10^3/uL (130-400); Red Blood Cell Count 3.35 10^6/uL (4.70-6.10); White Blood Cell Count 15.2 10^3/uL (4.8-10.8)
[2024-12-10 07:18] LABS: Blood Urea Nitrogen 34 mg/dl (9-20); Calcium 8.5 mg/dl (8.4-10.2); Carbon Dioxide 26 mmol/L (22-30); Chloride 93 mmol/L (98-107); Estimated Creatinine Clearance 6 ml/min; Glucose 118 mg/dl (70-99); Potassium 3.2 mmol/L (3.5-5.1); Sodium 132 mmol/L (135-145); eGFR 5.99
[2024-12-10] MEDS: SYNTHROID 150 MCG PO (08:06)
[2024-12-10] MEDS: PROTONIX 40 MG PO (08:07)
[2024-12-10] MEDS: PACERONE 200 MG PO (08:08)
[2024-12-10] MEDS: LOW STRENGTH ASPIRIN 81 MG PO (08:08)
[2024-12-10] MEDS: ELIQUIS 2.5 MG PO ×2 (08:09→21:22)
[2024-12-10] MEDS: REMERON 15 MG PO (08:09)
[2024-12-10] MEDS: LIPITOR 40 MG PO (08:10)
[2024-12-10] MEDS: VITAMIN B-12 1000 MCG PO (08:10)
[2024-12-10] MEDS: MAGNESIUM OXIDE 500 MG PO (08:10)
[2024-12-10] MEDS: TUMS CHEWABLE TABLET 200 MG PO (08:10)
[2024-12-10] MEDS: COLACE PO (08:11)
[2024-12-10] MEDS: SANTYL OINTMENT 1 APPLIC TOPICAL (08:12)
[2024-12-10] MEDS: ProAmatine PO (08:22)
--- NOTE | 2024-12-10 10:48 | W.PN.HOSP.TC ---
Addendum entered and electronically signed by Ronan Middleton DO 12/10/24 15:13:
Patient does have orthostatic hypotension based on vitals. Continue midodrine and compression stockings.
Asymptomatic leukocytosis noted. Afebrile. Check blood cultures as daughter states he is due for his follow-up blood cultures that were scheduled prior to admission.
PT is recommending SNF. Will discuss with social work.
Original Note:
Today's Communication/Plan
-
Compression stockings
Check orthostatics
PT/OT
nephrology consult
Assessment / Plan
Assessment / Plan
Gen-awake, alert, NAD
HEENT-NC, AT, anicteric, clear oral mm
Neck-supple
CV-reg, no M, +S1/S2
Lungs-clear B/L
Abd-soft, NT, ND
Ext-no edema
Musculoskeletal-no cyanosis, clubbing
Skin-warm and dry
Neuro-grossly non-focal
Psych-calm, cooperative
Syncope -likely due to orthostatic hypotension. Check orthostatics. Continue compression stockings. Continue midodrine. Patient states he has not been using compression stockings at home.
Of note he was hypotensive on arrival, blood pressure improved. Lisinopril discontinued. Unclear if volume depletion contributing to hypotension. Admits to poor appetite. States he was prescribed an appetite stimulant, does not know the name.
Difficult to assess volume status. Discharge weight was 61 kg in November, admission weight yesterday was 61 kg.
ESRD on PD -nephrology consulted.
Chronic hyponatremia -sodium at baseline.
hypokalemia -will replete. Check magnesium.
Paroxysmal atrial fibrillation -continue Eliquis, amiodarone.
Chronic heart failure reduced EF -stable.
Hypothyroidism -Synthroid.
Chronic anemia -hemoglobin 10.2. Discharge hemoglobin was 8.4 last month. Monitor for now.
CAD/CABG -stable.
Hyperlipidemia -atorvastatin
History of stroke
Ambulatory dysfunction -uses a walker at home. Consult PT/OT.
DNR
Anticipated Discharge: 24 - 48 hours
Subjective/Interval History
-
Date of Service: December 10, 2024
Patient seen and examined. Feeling better. No complaints.
Objective Data
-
Labs:
Laboratory Results
12/10/24
06:37
WBC 15.2 H
Hgb 10.2 L
Hct 30.4 L
Plt Count 357
Sodium 132 L
Potassium 3.2 L
Chloride 93 L
Carbon Dioxide 26
BUN 34 H
Creatinine 8.4 H*
Glucose 118 H
Calcium 8.5
Vital Signs:
Vital Signs
Temp Pulse Resp BP Pulse Ox
97.6 F 70 16 112/53 97
12/09/24 21:11 12/10/24 10:00 12/10/24 10:00 12/10/24 10:00 12/10/24 10:00
Review of Systems
-
History Source: Patient
All other systems: Reviewed and negative
[2024-12-10] MEDS: KCL ELIXIR 40 MEQ PO (12:16)
--- NOTE | 2024-12-10 13:37 | W.CON.NEPH ---
Consultation
-
Date/Time Consultation Requested: 12/10/24 0057
Date/Time Consultation Performed: 12/10/24 1300
Requesting Provider: Dr Tito Fishman
Performing Provider: Aaliyah Gaspar
Reason for Consultation: ESRD
Medical History
-
Chief Complaint: syncope
History of Present Illness:
79-year-old male with CAD status post CABG, paroxysmal atrial fibrillation(maintained on amiodarone and anticoagulated with Eliquis), HFrEF, ESRD on peritoneal dialysis, hypertension, hypercholesteremia, hypothyroidism who had recent hospitalization
for orthostatic hypotension who presents to ED for evaluation of syncope. Patient was admitted to 11/22 - 11/28 for lightheadedness. He was started on midodrine and stopped ACEI. Since d/c his BPs were high and PCP stopped midodrine. As BPs
remains elevated he was requested to resume Lisinopril last night which pt did and soon after he noted 3 syncopal events at home which lead him to come to ER, No falls per daughter. Diaghter reports pt also had new diarrhea since last evening. He
typically does not drink fluids only upto 20ounces/day chronically. No fever or cough. he feels tired now. No CP or sob. Does c/o mild abd discomfort.
He also has significant anemia and GI bleeding on recent admitts too. current hb 10.2. peritoneal dialysis and his outpatient regimen has remained the same with 4 exchanges overnight at 1.5% solutions. missed pD last night.
Past Medical History
End-stage renal disease on peritoneal dialysis
Coronary artery disease with history of CABG
Paroxysmal atrial fibrillation on chronic anticoagulation
HFpEF
orthostatic hypotension
Hypothyroidism
Hyperphosphatemia
Anemia
Dyslipidemia
Left occipital stroke with severe left carotid artery stenosis
Social History
Tobacco: Non-Smoker
Alcohol: None
Drug: None
Living: With Family
Family History
no ckd
Family History: Not Pertinent
Allergies / Home Medications
Allergy/AdvReac Type Severity Reaction Status Date / Time
No Known Allergies Allergy Verified 10/28/24 19:28
�Medication �Instructions �Recorded �Confirmed �Type
amiodarone 200 mg tablet 200 mg PO DAILY Arrhythmia 07/28/24 12/09/24 History
atorvastatin 40 mg tablet 40 mg PO DAILY High Cholesterol 07/28/24 12/09/24 History
calcium carbonate 500 mg PO DAILY Gastrointestinal 07/28/24 12/09/24 History
Issue
cyanocobalamin (vitamin B-12) 1,000 mcg PO DAILY Supplement 07/28/24 12/09/24 History
1,000 mcg tablet
docusate sodium 100 mg capsule 100 mg PO DAILY Constipation 07/28/24 12/09/24 History
(Colace)
levothyroxine 150 mcg tablet 150 mcg PO DAILY Thyroid 07/28/24 12/09/24 History
magnesium oxide 400 mg (241.3 mg 400 mg PO DAILY Supplement 07/28/24 12/09/24 History
magnesium) tablet
vitamin B complex-vitamin C-folic 1 tab PO DAILY Supplement 07/28/24 12/09/24 History
acid 800 mcg chewable tablet
(Dialyvite 800)
apixaban 5 mg tablet (Eliquis) 2.5 mg PO BID Blood Clot 08/11/24 12/09/24 History
Prevention/Tx
pantoprazole 40 mg tablet,delayed 40 mg PO DAILY #30 tabs 08/13/24 12/09/24 Rx
release
acetaminophen 500 mg tablet 1,000 mg PO Q6HPRN PRN mild pain 08/20/24 12/09/24 History
(Tylenol Extra Strength)
aspirin 81 mg chewable tablet 81 mg PO DAILY Blood Clot 10/28/24 12/09/24 History
Prevention/Tx
hydrocortisone acetate 25 mg 25 mg [place] DAILYPRN PRN hemorrhoid 11/22/24 12/09/24 History
rectal suppository
wheat dextrin 1 gram tablet 1 g PO BID Supplement 11/22/24 12/09/24 History
(Benefiber (wheat dextrin))
collagenase clostridium histo. 250 1 applic topical DAILY 12/09/24 12/09/24 History
unit/gram topical ointment (Santyl)
lisinopril 20 mg tablet 20 mg PO DAILY 12/09/24 12/09/24 History
mirtazapine 15 mg tablet 15 mg PO DAILY 12/09/24 12/09/24 History
sennosides 8.6 mg-docusate sodium 1 tab-cap PO DAILYPRN PRN 12/09/24 12/09/24 History
50 mg tablet (Senokot-S) constipation
Review of Systems
-
all complete 12 point ROS have been inquired and found negative other than state din HPI
Physical Exam
Vital Signs
Vital Signs
Temp Pulse Resp BP Pulse Ox
97.5 F 75 15 118/46 99
12/10/24 12:01 12/10/24 11:56 12/10/24 11:56 12/10/24 11:56 12/10/24 11:56
Lab Results
WBC 15.2 10^3/uL (4.8-10.8) H 12/10/24 06:37
RBC 3.35 10^6/uL (4.70-6.10) L 12/10/24 06:37
Hgb 10.2 g/dL (13.0-18.0) L 12/10/24 06:37
Hct 30.4 % (39.0-52.0) L 12/10/24 06:37
Plt Count 357 10^3/uL (130-400) 12/10/24 06:37
Sodium 132 mmol/L (135-145) L 12/10/24 06:37
Potassium 3.2 mmol/L (3.5-5.1) L 12/10/24 06:37
Chloride 93 mmol/L (98-107) L 12/10/24 06:37
Carbon Dioxide 26 mmol/L (22-30) 12/10/24 06:37
BUN 34 mg/dl (9-20) H 12/10/24 06:37
Creatinine 8.4 mg/dL (0.7-1.3) H* 12/10/24 06:37
eGFR 5.99 12/10/24 06:37
Glucose 118 mg/dl (70-99) H 12/10/24 06:37
Calcium 8.5 mg/dl (8.4-10.2) 12/10/24 06:37
Albumin 3.2 g/dl (3.5-5.0) L 12/09/24 21:52
Physical Exam
General: Awake, Alert, Oriented, AOx3, No Distress and Nontoxic
HEENT: Anicteric, Conjunctivae Clear, Dentition Intact, Trachea Midline and No JVD
Respiratory: Clear, Normal Excursion and Nonlabored Respirations
Cardiac: S1/S2, Regular Rate/Rhythm and No Edema
Breast: Deferred by me
Abdomen: Soft, Nontender and Nondistended
Musculoskeletal: No Cyanosis and No Edema
Skin: No Rash
Neuro: Nonfocal/Grossly Intact
Psych: Mood/afflect pleasant, Insight/judgement good and Appropriate
Vascular Access: Other (PD catheter noted left abd )
Data Reviewed
-
Radiology: Report Reviewed by me, Discussed with Patient and Discussed with Family
Labs: Labs Reviewed by me, Discussed with Nurse, Discussed with Patient and Discussed with Family
Assessment/Plan
-
Impression:
Syncope
Orthostasis
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
Left carotid stenosis
End-stage renal disease on peritoneal dialysis
Hypertension
Paroxysmal atrial fibrillation
Hyperphosphatemia
Anemia
History of CABG
h/o bilat CEA at [facility]
TCAR 08/11/2024
Plan:
resume Midodrine 2.5 mg twice daily
permissive HTN upto 150s, no anti HTN , if needed only hydralazine prn
PD ordered
1.5% Q4h exchanges, 2 L each exchange
he seem dry on exam with wt loss and diarrhea
will start gentle IVF -NS
replete K
hb better than last admit
given leucocytosis and mild abd pain check PD fluid cell count and cx
follow labs
[2024-12-10] MEDS: NSS 500 IV ×2 (14:50→22:16)
--- NOTE | 2024-12-10 15:00 | PTCARENOTE ---
Pt from ER AAOx3 very drowst=y syayes he is very weak. Awaiting PD orders. Daughter at bedside.Pthas Loose stools
[2024-12-10] MEDS: COMPAZINE 10 MG IV (16:13)
[2024-12-10] MEDS: ProAmatine 2.5 MG PO (16:13)
[2024-12-10 18:13] LABS: Body Fluid Mononuclear 87.5 %; Body Fluid Polymorphonuclear 12.5 %
--- NOTE | 2024-12-10 18:15 | PTCARENOTE ---
PD orders recieved and initiated. PT was nauseous and given Compazine. PD fluid sent to lab
[2024-12-10 18:36] LABS: Body Fluid Second Tech CMC; Body Fluid WBC 7 /CUMM
[2024-12-11] VITALS (7 sets, daily range): BP systolic 98–119; BP diastolic 36–73; BMI 21.1
--- NOTE | 2024-12-11 02:59 | PTCARENOTE ---
Pt received at beginning of shift resting in bed. AAOx3, drowsy but arousable. Denies pain or discomfort. VSS. Afebrile. POX RA 98%. SR/1degree/BBB/PQT on CM rate 60's. IVF's infusing as ordered. Pt has band around chest where he keeps tip of PD
cath secure when not in use. Incontinent small amount urine and small BM. Right knee abrasion dressing off. Skin care provided and as documented. No change from previous assessment. Turns self in bed. Call molina remains within reach. Will continue to
monitor.
--- NOTE | 2024-12-11 03:30 | PTCARENOTE ---
María LOERA TT'd about pt's request for cups of water. It was explained to her that pt had 400ml cup that was empty which he states had water inside. Pt then began to c/o of nausea and then eventually abd pain which were both medicated. María
LUZ MARIA will be up to speak to pt.
[2024-12-11 04:13] LABS: Hematocrit 27.1 % (39.0-52.0); Hemoglobin 9.3 g/dL (13.0-18.0); Mean Corp Hgb Conc. 34.3 g/dL (33.0-37.0); Mean Corpuscular Volume 90.3 fL (80.0-94.0); Mean Platelet Volume 9.3 fL (7.4-10.4); Platelet Count 316 10^3/uL (130-400); Red Cell Dist. Width 18.6 % (11.5-14.5); White Blood Cell Count 13.2 10^3/uL (4.8-10.8)
[2024-12-11 04:57] LABS: Blood Urea Nitrogen 33 mg/dl (9-20); Calcium 8.1 mg/dl (8.4-10.2); Carbon Dioxide 25 mmol/L (22-30); Chloride 99 mmol/L (98-107); Estimated Creatinine Clearance 6 ml/min; Glucose 110 mg/dl (70-99); Potassium 3.2 mmol/L (3.5-5.1); Sodium 132 mmol/L (135-145); eGFR 5.99
[2024-12-11] MEDS: NSS 500 IV ×3 (05:59→23:50)
[2024-12-11] MEDS: SYNTHROID 150 MCG PO (05:59)
[2024-12-11] MEDS: COLACE 100 MG PO (08:19)
[2024-12-11] MEDS: MAGNESIUM OXIDE 500 MG PO (08:19)
[2024-12-11] MEDS: ELIQUIS 2.5 MG PO ×2 (08:19→21:08)
[2024-12-11] MEDS: TUMS CHEWABLE TABLET 200 MG PO (08:19)
[2024-12-11] MEDS: PROTONIX 40 MG PO (08:19)
[2024-12-11] MEDS: LOW STRENGTH ASPIRIN 81 MG PO (08:19)
[2024-12-11] MEDS: ProAmatine 2.5 MG PO ×2 (08:20→15:32)
[2024-12-11] MEDS: VITAMIN B-12 1000 MCG PO (08:20)
[2024-12-11] MEDS: LIPITOR 40 MG PO (08:20)
[2024-12-11] MEDS: PACERONE 200 MG PO (08:21)
[2024-12-11] MEDS: SANTYL OINTMENT 1 APPLIC TOPICAL (08:21)
--- NOTE | 2024-12-11 08:41 | W.PN.HOSP.TC ---
Today's Communication/Plan
-
Vascular surgery consult
Assessment / Plan
Assessment / Plan
Gen-awake, alert, NAD
HEENT-NC, AT, anicteric, clear oral mm
Neck-supple
CV-reg, no M, +S1/S2
Lungs-clear B/L
Abd-soft, nondistended, mildly tender, no guarding or rebound
Ext-no edema
Musculoskeletal-no cyanosis, clubbing
Skin-warm and dry, superficial wound over right knee without signs of infection
Neuro-grossly non-focal
Psych-calm, cooperative
Syncope -likely due to orthostatic hypotension. Lisinopril just initiated prior to admission likely contributing to drop in blood pressure as well. Orthostatic based on vitals. Continue compression stockings. Continue midodrine. Patient states
he has not been using compression stockings at home.
Of note he was hypotensive on arrival, blood pressure improved. Lisinopril discontinued. Unclear if volume depletion contributing to hypotension. Admits to poor appetite. States he was prescribed an appetite stimulant, does not know the name.
Difficult to assess volume status. Discharge weight was 61 kg in November, admission weight yesterday was 61 kg.
Leukocytosis -without fever. PD fluid sent for Gram stain and culture, rule out infection. He does have mild tenderness to palpation.
PAD -consult vascular surgery. Lower extremity arterial studies done in July and noted. Does have cramps with ambulation.
ESRD on PD -nephrology consulted.
Chronic hyponatremia -sodium at baseline.
hypokalemia -will replete. Magnesium normal.
Paroxysmal atrial fibrillation -continue Eliquis, amiodarone.
Chronic heart failure reduced EF -stable.
Hypothyroidism -Synthroid.
Chronic anemia -hemoglobin 9.3 . Discharge hemoglobin was 8.4 last month. Monitor for now.
CAD/CABG -stable.
Hyperlipidemia -atorvastatin
History of stroke
Ambulatory dysfunction -uses a walker at home. PT recommending SNF. Family aware.
DNR
Anticipated Discharge: > 48 hours
Subjective/Interval History
-
Date of Service: December 11, 2024
Patient seen and examined. No complaints.
Objective Data
-
Labs:
Laboratory Results
12/11/24
03:58
WBC 13.2 H
Hgb 9.3 L
Hct 27.1 L
Plt Count 316
Sodium 132 L
Potassium 3.2 L
Chloride 99
Carbon Dioxide 25
BUN 33 H
Creatinine 8.4 H*
Glucose 110 H
Calcium 8.1 L
Vital Signs:
Vital Signs
Temp Pulse Resp BP Pulse Ox
97.7 F 69 23 105/37 98
12/11/24 07:00 12/11/24 05:15 12/11/24 05:15 12/11/24 08:20 12/11/24 05:15
I&O
12/10/24 12/11/24 12/12/24
06:59 06:59 07:59
Intake Total 820 / 820
Output Total 1800 / 1800
Balance -980 / -980
Review of Systems
-
History Source: Patient
All other systems: Reviewed and negative
[2024-12-11] MEDS: KCL ELIXIR 40 MEQ PO (09:48)
--- NOTE | 2024-12-11 12:26 | W.PN.NEPH.PH ---
Today's Communication / Plan
-
cont IVF and PD
Assessment/Plan
-
Impression:
Syncope
Orthostasis
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
Left carotid stenosis
End-stage renal disease on peritoneal dialysis
Hypertension
Paroxysmal atrial fibrillation
Hyperphosphatemia
Anemia
History of CABG
h/o bilat CEA at [facility]
TCAR 08/11/2024
Plan:
a/w syncope post ACEI
BP remains soft, on midodrine 2.5 mg twice daily
permissive HTN upto 150s, no anti HTN , if needed only hydralazine prn
PD ordered reviewed
1.5% Q4h exchanges, 2 L each exchange
he seem dry on exam with wt loss and diarrhea , cont IVF
replete K
monitor h/h
given leucocytosis and mild abd pain check PD fluid cell count-no sign of inf
follow labs
-
-
Date of Service: December 11, 2024
CC / HPI / ROS
-
Chief Complaint:
ESRD PD
History of Present Illness:
k remains low 3.2
sodium stable 132
wt is up
BP remain soft
Review of Systems:
no dizziness this am
tolerating po
no cp or sob
still mild diarrhea
Labs
-
Labs:
WBC 13.2 10^3/uL (4.8-10.8) H 12/11/24 03:58
RBC 3.00 10^6/uL (4.70-6.10) L 12/11/24 03:58
Hgb 9.3 g/dL (13.0-18.0) L 12/11/24 03:58
Hct 27.1 % (39.0-52.0) L 12/11/24 03:58
Plt Count 316 10^3/uL (130-400) 12/11/24 03:58
Sodium 132 mmol/L (135-145) L 12/11/24 03:58
Potassium 3.2 mmol/L (3.5-5.1) L 12/11/24 03:58
Chloride 99 mmol/L (98-107) 12/11/24 03:58
Carbon Dioxide 25 mmol/L (22-30) 12/11/24 03:58
BUN 33 mg/dl (9-20) H 12/11/24 03:58
Creatinine 8.4 mg/dL (0.7-1.3) H* 12/11/24 03:58
eGFR 5.99 12/11/24 03:58
Glucose 110 mg/dl (70-99) H 12/11/24 03:58
Calcium 8.1 mg/dl (8.4-10.2) L 12/11/24 03:58
Albumin 3.2 g/dl (3.5-5.0) L 12/09/24 21:52
Physical Exam
-
Vital Signs:
Vital Signs
Temp Pulse Resp BP Pulse Ox
97.7 F 89 15 105/37 96
12/11/24 12:00 12/11/24 10:00 12/11/24 10:00 12/11/24 08:20 12/11/24 10:00
Cardiovascular:: Regular rate and rhythm
Respiratory:: Bilateral: CTA
Lung Excursion:: Normal
Abdomen:: Nontender and Soft
Bowel Sounds:: Normal
Extremity Edema:: None: Bilateral:
Gavin Catheter: No
--- NOTE | 2024-12-11 14:28 | CM ---
Spoke with patient daughter Bri
IA completed
Dx: orthostatic hypotension
PMH: ESRD on PD
[place], no steps to enter, 1st floor set up
PLOF: ambulates walker
DME: [facility]PC, walker, wheelchair, PD supplies
[facility] - referral entered in [facility] acute rehab in past
PCP: Iliana Hoang
Pharmacy: [facility]
PLAN: CM to follow patient progress, [facility] when medically stable
--- NOTE | 2024-12-11 18:53 | PTCARENOTE ---
Pt received at beginning of shift resting in bed. More alert this evening than last. Ate approx 50% of dinner. Denies pain or discomfort. VSS remain stable. Afebrile. SR/1degree/PQT/PVC on CM rate 70's. Next PD due around 193. IVF's infusing as
ordered. Rest of assessment as documented. Turns self in bed. Call molina remains within reach. Will continue to monitor.
[2024-12-11] MEDS: REMERON 15 MG PO (21:08)
[2024-12-12] VITALS (11 sets, daily range): BP systolic 91–135; BP diastolic 34–56; BMI 20.8
[2024-12-12 04:56] LABS: Hematocrit 26.1 % (39.0-52.0); Hemoglobin 8.8 g/dL (13.0-18.0); Mean Corp Hgb Conc. 33.7 g/dL (33.0-37.0); Mean Corpuscular Hgb 31.2 pg (27.0-31.0); Mean Corpuscular Volume 92.6 fL (80.0-94.0); Mean Platelet Volume 9.7 fL (7.4-10.4); Platelet Count 328 10^3/uL (130-400); Red Blood Cell Count 2.82 10^6/uL (4.70-6.10); Red Cell Dist. Width 18.8 % (11.5-14.5); White Blood Cell Count 13.5 10^3/uL (4.8-10.8)
[2024-12-12 05:25] LABS: Blood Urea Nitrogen 26 mg/dl (9-20); Calcium 7.8 mg/dl (8.4-10.2); Carbon Dioxide 27 mmol/L (22-30); Chloride 100 mmol/L (98-107); Estimated Creatinine Clearance 7 ml/min; Glucose 95 mg/dl (70-99); Potassium 3.1 mmol/L (3.5-5.1); Sodium 131 mmol/L (135-145); eGFR 7.86
[2024-12-12] MEDS: SYNTHROID 150 MCG PO (07:07)
[2024-12-12] MEDS: NSS 500 IV (07:08)
[2024-12-12] MEDS: LOW STRENGTH ASPIRIN 81 MG PO (09:02)
[2024-12-12] MEDS: ELIQUIS 2.5 MG PO ×2 (09:02→19:58)
[2024-12-12] MEDS: LIPITOR 40 MG PO (09:02)
[2024-12-12] MEDS: KCL ELIXIR PO ×2 (09:02→13:54)
[2024-12-12] MEDS: PACERONE 200 MG PO (09:03)
[2024-12-12] MEDS: TUMS CHEWABLE TABLET 200 MG PO (09:05)
[2024-12-12] MEDS: PROTONIX 40 MG PO (09:05)
[2024-12-12] MEDS: ProAmatine 2.5 MG PO ×3 (09:05→16:17)
[2024-12-12] MEDS: VITAMIN B-12 1000 MCG PO (09:06)
[2024-12-12] MEDS: MAGNESIUM OXIDE PO (09:52)
[2024-12-12] MEDS: COLACE PO (09:52)
--- NOTE | 2024-12-12 11:20 | W.PN.HOSP.TC ---
Today's Communication/Plan
-
Vascular surgery consult
Continue potassium
Assessment / Plan
Assessment / Plan
Gen-awake, alert, NAD
HEENT-NC, AT, anicteric, clear oral mm
Neck-supple
CV-reg, no M, +S1/S2
Lungs-clear B/L
Abd-soft, nondistended, mildly tender, no guarding or rebound
Ext-no edema
Musculoskeletal-no cyanosis, clubbing
Skin-warm and dry, superficial wound over right knee without signs of infection
Neuro-grossly non-focal
Psych-calm, cooperative
Syncope -likely due to orthostatic hypotension. Lisinopril just initiated prior to admission likely contributing to drop in blood pressure as well. Orthostatic based on vitals. Continue compression stockings. Continue midodrine. Patient states
he has not been using compression stockings at home.
Of note he was hypotensive on arrival, blood pressure improved. Lisinopril discontinued. Unclear if volume depletion contributing to hypotension. Admits to poor appetite. States he was prescribed an appetite stimulant recently, possibly
mirtazapine.
Difficult to assess volume status. Discharge weight was 61 kg in November, weight today is 58 kg.
Leukocytosis -without fever. Unclear etiology but possible leukemoid reaction. No evidence of infection thus far.
PAD -consult vascular surgery. Lower extremity arterial studies done in July and noted. Does have cramps with ambulation.
ESRD on PD -nephrology following.
Chronic hyponatremia -sodium at baseline.
hypokalemia -will replete. Magnesium normal.
Paroxysmal atrial fibrillation -continue Eliquis, amiodarone.
Chronic heart failure reduced EF -stable.
Hypothyroidism -Synthroid.
Chronic anemia -hemoglobin 8.8. Discharge hemoglobin was 8.4 last month. Monitor for now.
CAD/CABG -stable.
Hyperlipidemia -atorvastatin
History of stroke
Ambulatory dysfunction -uses a walker at home. PT recommending SNF. Family aware.
DNR
Anticipated Discharge: > 48 hours
Subjective/Interval History
-
Date of Service: December 12, 2024
Patient seen and examined. No complaints.
Objective Data
-
Labs:
Laboratory Results
12/12/24
04:29
WBC 13.5 H
Hgb 8.8 L
Hct 26.1 L
Plt Count 328
Sodium 131 L
Potassium 3.1 L
Chloride 100
Carbon Dioxide 27
BUN 26 H
Creatinine 6.7 H*
Glucose 95
Calcium 7.8 L
Vital Signs:
Vital Signs
Temp Pulse Resp BP Pulse Ox
98.4 F 66 15 102/36 94
12/12/24 03:00 12/12/24 10:00 12/12/24 10:00 12/12/24 09:05 12/12/24 05:17
I&O
12/11/24 12/12/24 12/13/24
05:59 06:59 06:59
Intake Total
Output Total 600 / 600
Balance -600 / -600
Review of Systems
-
History Source: Patient
All other systems: Reviewed and negative
--- NOTE | 2024-12-12 11:42 | W.PN.UPDATE ---
Update Note
Progress Note Update
Seen and evaluated. Known to me status post relatively recent left TCAR procedure. I was asked to evaluate regarding potential peripheral arterial disease. Per Dr. Middleton assessment, patient reporting cramping with ambulation in the legs. When
I asked him he does not report significant cramping currently, but he does not seem to be walking that much. He does follow with wound care regarding right knee abrasion.
On exam/he is awake and alert. Head is normocephalic and atraumatic. Eyes are anicteric. Neck is soft without jugular venous distention. Breathing is unlabored. Abdomen is soft. Right lower extremity with 1+/2+ palpable femoral pulse. Left
side I difficulty palpating. Nonpalpable distally bilaterally. Feet are both warm. No rubor, no ulcerations. Noninvasive studies dated 08/02/2024 reviewed. Right TBI 0.27, left TBI 0.39. Monophasic left-sided waveforms, consistent with pulse
exam. Significant calcified plaque noted throughout vessels.
Plan/ Peripheral arterial disease. While he may have some claudication, does not seem debilitating. No tissue loss in his feet. However he does have chronic knee wound. No urgent indication for further workup, but I will see him in the
outpatient setting and can further workup his peripheral arterial disease at that point. Follow-up in the office with me in about 4 weeks.
--- NOTE | 2024-12-12 11:58 | W.PN.NEPH.PH ---
Today's Communication / Plan
-
d/c IVF
cont PD
Assessment/Plan
-
Impression:
Syncope
Orthostasis
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
Left carotid stenosis
End-stage renal disease on peritoneal dialysis
Hypertension
Paroxysmal atrial fibrillation
Hyperphosphatemia
Anemia
History of CABG
h/o bilat CEA at [facility]
TCAR 08/11/2024
Plan:
a/w syncope post ACEI
BP remains soft, on midodrine 2.5 mg twice daily
permissive HTN upto 150s, no anti HTN , if needed only hydralazine prn in future
PD ordered reviewed
1.5% Q4h exchanges, 2 L each exchange
flowcharts noted, net +ve balance
ok to d/c IVF, encourage po fluid intake only was doing 20ounces/day at home
stable hyponatremia
replete K
monitor h/h
given leucocytosis and mild abd pain check PD fluid cell count-no sign of inf
follow labs
-
-
Date of Service: December 12, 2024
CC / HPI / ROS
-
Chief Complaint:
ESRD PD
History of Present Illness:
k remains low 3.1
sodium stable 131
wt is down
BP remain soft
hb low 8.8
Review of Systems:
no dizziness this am
tolerating po but does not drink fluids as much
no cp or sob
improving diarrhea
Labs
-
Labs:
WBC 13.5 10^3/uL (4.8-10.8) H 12/12/24 04:29
RBC 2.82 10^6/uL (4.70-6.10) L 12/12/24 04:29
Hgb 8.8 g/dL (13.0-18.0) L 12/12/24 04:29
Hct 26.1 % (39.0-52.0) L 12/12/24 04:29
Plt Count 328 10^3/uL (130-400) 12/12/24 04:29
Sodium 131 mmol/L (135-145) L 12/12/24 04:29
Potassium 3.1 mmol/L (3.5-5.1) L 12/12/24 04:29
Chloride 100 mmol/L (98-107) 12/12/24 04:29
Carbon Dioxide 27 mmol/L (22-30) 12/12/24 04:29
BUN 26 mg/dl (9-20) H 12/12/24 04:29
Creatinine 6.7 mg/dL (0.7-1.3) H* 12/12/24 04:29
eGFR 7.86 12/12/24 04:29
Glucose 95 mg/dl (70-99) 12/12/24 04:29
Calcium 7.8 mg/dl (8.4-10.2) L 12/12/24 04:29
Albumin 3.2 g/dl (3.5-5.0) L 12/09/24 21:52
Physical Exam
-
Vital Signs:
Vital Signs
Temp Pulse Resp BP Pulse Ox
98.4 F 66 15 102/36 99
12/12/24 03:00 12/12/24 10:00 12/12/24 10:00 12/12/24 09:05 12/12/24 11:20
Cardiovascular:: Regular rate and rhythm
Respiratory:: Bilateral: CTA
Lung Excursion:: Normal
Abdomen:: Nontender and Soft
Bowel Sounds:: Normal
Extremity Edema:: None: Bilateral:
Gavin Catheter: No
[2024-12-12] MEDS: SANTYL OINTMENT 1 APPLIC TOPICAL (13:37)
--- NOTE | 2024-12-12 14:07 | PTCARENOTE ---
Patient receiving PD as per doctors orders. Denying pain when asked. Excellent appetite today. Incontinent of bowel. Wound care to right knee completed. Patient was unable to drink the potassium solution order. Dr. Middleton notified.
[2024-12-12] MEDS: KCL 40 MEQ PO (15:44)
--- NOTE | 2024-12-12 15:51 | PTCARENOTE ---
Nursing sat patient on side of bed and blood pressure went from 135/42 to 98/49. Teds are applied. Discussed with Dr. Middleton. Patient denied dizziness but is very weak requiring 2 person assist to sit up.
[2024-12-12 16:08] LABS: Magnesium 1.7 mg/dl (1.6-2.3)
[2024-12-12] MEDS: REMERON 15 MG PO (19:58)
[2024-12-12] MEDS: KCL 20 MEQ PO (19:59)
[2024-12-12] MEDS: ProAmatine 5 MG PO (20:01)
[2024-12-13] VITALS: BP 122/43
[2024-12-13 03:00] VITALS: BMI 21.5
[2024-12-13 04:00] VITALS: BP 106/45
[2024-12-13] MEDS: SYNTHROID 150 MCG PO (05:06)
[2024-12-13 05:26] LABS: % Basophils 0.7 % (0-2); % Eosinophils 2.9 % (0-6); % Immature Granulocytes 3.2 % (0-0.5); % Lymphocytes 24.9 % (20.5-51.1); % Monocytes 6.6 % (1.7-9.3); % Neutrophils 61.7 % (42.2-75.2); Absolute Basophils 0.1 10^3/uL (0-0.2); Absolute Eosinophils 0.4 10^3/uL (0-0.7); Absolute Immature Granulocytes 0.4 10^3/uL (0-0.05); Absolute Monocytes 0.8 10^3/uL (0.1-0.6); Absolute Neutrophils 7.4 10^3/uL (1.4-6.5); Hematocrit 27.9 % (39.0-52.0); Hemoglobin 9.3 g/dL (13.0-18.0); Mean Corp Hgb Conc. 33.3 g/dL (33.0-37.0); Mean Corpuscular Hgb 31.6 pg (27.0-31.0); Mean Corpuscular Volume 94.9 fL (80.0-94.0); Mean Platelet Volume 9.8 fL (7.4-10.4); Nucleated Red Blood Cells % 0.6 % (-); Platelet Count 360 10^3/uL (130-400); Red Blood Cell Count 2.94 10^6/uL (4.70-6.10); Red Cell Dist. Width 19.2 % (11.5-14.5)
[2024-12-13 05:50] LABS: Blood Urea Nitrogen 25 mg/dl (9-20); Calcium 7.8 mg/dl (8.4-10.2); Carbon Dioxide 28 mmol/L (22-30); Chloride 98 mmol/L (98-107); Estimated Creatinine Clearance 8 ml/min; Glucose 78 mg/dl (70-99); Potassium 3.8 mmol/L (3.5-5.1); Sodium 131 mmol/L (135-145)
[2024-12-13] MEDS: ELIQUIS 2.5 MG PO ×2 (08:54→19:49)
[2024-12-13] MEDS: LIPITOR 40 MG PO (08:54)
[2024-12-13] MEDS: SANTYL OINTMENT 1 APPLIC TOPICAL (08:55)
[2024-12-13] MEDS: ProAmatine 5 MG PO ×3 (08:55→18:20)
[2024-12-13] MEDS: PROTONIX 40 MG PO (08:55)
[2024-12-13] MEDS: PACERONE 200 MG PO (08:55)
[2024-12-13] MEDS: LOW STRENGTH ASPIRIN 81 MG PO (08:55)
[2024-12-13] MEDS: TUMS CHEWABLE TABLET 200 MG PO (08:55)
[2024-12-13] MEDS: KCL 20 MEQ PO ×2 (08:55→19:49)
[2024-12-13] MEDS: VITAMIN B-12 1000 MCG PO (08:55)
[2024-12-13 09:00] VITALS: BP 104/64
--- NOTE | 2024-12-13 09:15 | WOUNDNOTE ---
L HEEL (BLANCHABLE RED)
--- NOTE | 2024-12-13 09:18 | WOUNDNOTE ---
WO RN note: Patient admitted with orthostatic HOTN. Patient current with VN. He follows [facility] for R knee wound.
See H&P for complete history.
PMH: R knee wound d/t trauma, PAD, ESRD on PD, a fib (Eliquis), anemia, CKD, ASCVD, CVA, bilateral CEA.
Wound Location and type/assessment: Patient admitted with: full thickness to subcutaneous layer R knee wound d/t trauma. Feet warm. 07/30/24 R TBI .27, L TBI .39. Patient seen by Dr. Nickerson who will follow as an outpatient. Sacrum and heels blanchable
red. R collazo scattered pinpoint scabbed abrasions. L dorsal foot scabbed abrasion.
Appetite: good.
Pressure redistribution devices in place: Centrella Max air bed. Patient turns slowly in bed.
Plan: R knee wound dressing changed. Discussed TEDS with PAUL Blevins who will discuss how often has to wear with hospitalist given history of PAD. Padded bilateral collazo bone and dorsal foot/ankle area with protective silicone border foam. Protective
heel foam dressings applied. Air chair cushion given. Instructed patient pressure injury prevention measures including heel elevation off bed. Pillow placed at foot of bed. Patient's knees currently bent and plantar feet on bed.
Will confirm orders with Dr. Bower and discussed with PAUL Blevins.
Care plan to be updated and will follow as needed.
Recommend follow up at wound care center upon discharge.
--- NOTE | 2024-12-13 09:57 | W.PN.HOSP.TC ---
Today's Communication/Plan
-
stable for tele
Assessment / Plan
Assessment / Plan
Syncope -likely due to orthostatic hypotension. Lisinopril just initiated prior to admission likely contributing to drop in blood pressure as well. Orthostatic based on vitals. Continue compression stockings. Continue midodrine. Patient states
he has not been using compression stockings at home. Of note he was hypotensive on arrival, blood pressure improved. Lisinopril discontinued. Unclear if volume depletion contributing to hypotension. Admits to poor appetite. States he was
prescribed an appetite stimulant recently, possibly mirtazapine. Check orthostatic vital signs 1 hour after receiving midodrine
Constipation�check abdominal x-ray, rule out overflow diarrhea from constipation
Leukocytosis -without fever. Unclear etiology but possible leukemoid reaction. No evidence of infection thus far.
PAD - Lower extremity arterial studies done in July and noted. Does have cramps with ambulation. Appreciate vascular surgery input, patient's claudication is not debilitating. No urgent indication for further workup, recommend outpatient
follow-up in the office in 4 weeks
ESRD on PD -nephrology following. Daughter asking about hemodialysis so patient can go to rehab
Chronic hyponatremia -sodium at baseline.
Hypokalemia -repleted and resolved. Magnesium normal.
Paroxysmal atrial fibrillation -continue Eliquis, amiodarone.
Chronic heart failure reduced EF -stable.
Hypothyroidism -Synthroid.
Chronic anemia -monitor hemoglobin
CAD/CABG -continue aspirin, statin, Eliquis
Hyperlipidemia -atorvastatin
History of stroke
Ambulatory dysfunction -uses a walker at home. PT recommending SNF. Family aware.
DVT prophylaxis�Eliquis
DNR
Total time spent to see the patient on the floor, examine the patient, review data and lab results, discuss treatment plan with patient, nursing staff around 50 minutes.
Physical exam
Gen-awake, alert, NAD
HEENT-NC, AT, anicteric, clear oral mm
Neck-supple
CV-reg, no M, +S1/S2
Lungs-clear B/L
Abd-soft, nondistended, mildly tender, no guarding or rebound
Ext-no edema
Musculoskeletal-no cyanosis, clubbing
Skin-warm and dry, superficial wound over right knee without signs of infection
Anticipated Discharge: 24 - 48 hours
Subjective/Interval History
-
Date of Service: December 13, 2024
Patient is having a hard time having a bowel movement. Denies lightheadedness or dizziness with standing. No fever, no vomiting.
Objective Data
-
Labs:
Laboratory Results
12/13/24
03:59
WBC 12.0 H
Hgb 9.3 L
Hct 27.9 L
Plt Count 360
Sodium 131 L
Potassium 3.8
Chloride 98
Carbon Dioxide 28
BUN 25 H
Creatinine 6.1 H*
Glucose 78
Calcium 7.8 L
Vital Signs:
Vital Signs
Temp Pulse Resp BP Pulse Ox
97.4 F 80 14 104/64 99
12/13/24 07:30 12/13/24 09:00 12/13/24 09:00 12/13/24 09:00 12/13/24 09:00
I&O
12/12/24 12/13/24 12/14/24
06:59 06:59 06:59
Intake Total 1240 / 1240
Output Total 900 / 900 200 / 200
Balance 340 / 340 -200 / -200
--- NOTE | 2024-12-13 10:14 | W.PN.NEPH.PH ---
Today's Communication / Plan
-
PD continues
Assessment/Plan
-
Impression:
Syncope
Orthostasis
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
Left carotid stenosis
End-stage renal disease on peritoneal dialysis
Hypertension
Paroxysmal atrial fibrillation
Hyperphosphatemia
Anemia
History of CABG
h/o bilat CEA at [facility]
TCAR 08/11/2024
Plan:
PD ordered, continue 1.5%solutions, 2L, q4H
wean midodrine
in future, only hydralazine 5mg prn SBP>180.
-
-
Date of Service: December 13, 2024
CC / HPI / ROS
-
Chief Complaint:
ESRD PD
History of Present Illness:
k better3.8
sodium stable 131
wt is down
BP stable low on midodrine
Review of Systems:
no dizziness this am
tolerating po but does not drink fluids as much
no cp or sob
Labs
-
Labs:
WBC 12.0 10^3/uL (4.8-10.8) H 12/13/24 03:59
RBC 2.94 10^6/uL (4.70-6.10) L 12/13/24 03:59
Hgb 9.3 g/dL (13.0-18.0) L 12/13/24 03:59
Hct 27.9 % (39.0-52.0) L 12/13/24 03:59
Plt Count 360 10^3/uL (130-400) 12/13/24 03:59
Sodium 131 mmol/L (135-145) L 12/13/24 03:59
Potassium 3.8 mmol/L (3.5-5.1) 12/13/24 03:59
Chloride 98 mmol/L (98-107) 12/13/24 03:59
Carbon Dioxide 28 mmol/L (22-30) 12/13/24 03:59
BUN 25 mg/dl (9-20) H 12/13/24 03:59
Creatinine 6.1 mg/dL (0.7-1.3) H* 12/13/24 03:59
eGFR 8.80 12/13/24 03:59
Glucose 78 mg/dl (70-99) 12/13/24 03:59
Calcium 7.8 mg/dl (8.4-10.2) L 12/13/24 03:59
Albumin 3.2 g/dl (3.5-5.0) L 12/09/24 21:52
Physical Exam
-
Vital Signs:
Vital Signs
Temp Pulse Resp BP Pulse Ox
97.4 F 80 14 104/64 99
12/13/24 07:30 12/13/24 09:00 12/13/24 09:00 12/13/24 09:00 12/13/24 09:00
Cardiovascular:: Regular rate and rhythm
Respiratory:: Bilateral: Coarse
Lung Excursion:: Normal
Abdomen:: Nontender and Soft
Bowel Sounds:: Normal
Extremity Edema:: None: Bilateral:
[2024-12-13 14:55] VITALS: BP 127/64; BP 127/70; BP 138/51; PULSE 70; PULSE 75; PULSE 77
[2024-12-13] MEDS: SENOKOT-S 1 TABLET PO (14:56)
--- NOTE | 2024-12-13 16:46 | CM ---
Patient with Hx ESRD on PD with Dx syncope, Suspected orthostatic hypotension. Room air. Receiving Midodrine. Seen by wound care nurse. PT/OT; requires assist of 2, recommends skilled rehab.
Message to Noah Bower & Rosina: patient's 6th admission since Jul, syncope/falling at home, not managing well at home and needing SNF for rehab again however will not be able to go to rehab due to PD. Admission bilingual case manager relayed that daughter inquired
about temporary HD so he can go to rehab.
Response from Dr Almaguer: If his BP stabilizes and he still needs rehab then he can get a catheter for HD.
Plan continue to follow patient's progress with PT/OT.
[2024-12-13] MEDS: MAALOX 30 ML PO (16:54)
--- NOTE | 2024-12-13 17:56 | PTCARENOTE ---
Continues to have liquid stools -ambulated to bathroom x3 today-- educated on constipation- senna given however would only take 1 tablet. Discussed him taking Miralax tomorrow- did not get a response . Appetite good breakfast and lunch- c/o
heartburn this pm- Maalox ordered and given. PD as ordered- Anuric. Teds on this am -removed with wound care- refusing to put back on at this time- stated 'hell no I ain't doing that every 4 hours'. NSR- VS documented- orthostatic completed-
will DC tele per protocol.
[2024-12-13] MEDS: SENOKOT-S 2 TABLET PO (19:48)
[2024-12-13] MEDS: REMERON 15 MG PO (19:49)
[2024-12-13 23:00] VITALS: BP 116/42
[2024-12-13 23:11] VITALS: BP 116/42
[2024-12-14] VITALS (11 sets, daily range): BP systolic 118–189; BP diastolic 44–169; BMI 22.5
[2024-12-14] MEDS: MAALOX 30 ML PO ×2 (04:14→12:37)
[2024-12-14 05:30] LABS: Hematocrit 28.9 % (39.0-52.0); Hemoglobin 9.4 g/dL (13.0-18.0); Mean Corp Hgb Conc. 32.5 g/dL (33.0-37.0); Mean Corpuscular Volume 95.4 fL (80.0-94.0); Mean Platelet Volume 9.6 fL (7.4-10.4); Platelet Count 380 10^3/uL (130-400); Red Blood Cell Count 3.03 10^6/uL (4.70-6.10); Red Cell Dist. Width 19.9 % (11.5-14.5); White Blood Cell Count 10.8 10^3/uL (4.8-10.8)
[2024-12-14] MEDS: SYNTHROID 150 MCG PO (05:31)
[2024-12-14 05:37] LABS: INR 1.26; PT 16.1 Sec (11.4-14.6)
[2024-12-14 05:58] LABS: Blood Urea Nitrogen 27 mg/dl (9-20); Carbon Dioxide 30 mmol/L (22-30); Chloride 95 mmol/L (98-107); Estimated Creatinine Clearance 9 ml/min; Glucose 71 mg/dl (70-99); Potassium 4.9 mmol/L (3.5-5.1); Sodium 131 mmol/L (135-145); eGFR 8.97
--- NOTE | 2024-12-14 08:00 | PTCARENOTE ---
Pt AAOx3 on RA 98% Lungs are clear, pt is medsurg. PD pt. PD cath on RLQ .
[2024-12-14] MEDS: ELIQUIS 2.5 MG PO ×2 (08:02→21:02)
[2024-12-14] MEDS: SANTYL OINTMENT 1 APPLIC TOPICAL (08:02)
[2024-12-14] MEDS: ProAmatine 5 MG PO ×2 (08:02→12:49)
[2024-12-14] MEDS: MIRALAX 17 GRAMS PO (08:02)
[2024-12-14] MEDS: PACERONE 200 MG PO (08:02)
[2024-12-14] MEDS: TUMS CHEWABLE TABLET 200 MG PO (08:02)
[2024-12-14] MEDS: PROTONIX 40 MG PO (08:02)
[2024-12-14] MEDS: LOW STRENGTH ASPIRIN 81 MG PO (08:02)
[2024-12-14] MEDS: SENOKOT-S 2 TABLET PO (08:03)
[2024-12-14] MEDS: KCL 20 MEQ PO ×2 (08:03→21:02)
[2024-12-14] MEDS: VITAMIN B-12 1000 MCG PO (08:03)
[2024-12-14] MEDS: LIPITOR 40 MG PO (08:03)
--- NOTE | 2024-12-14 09:00 | PTCARENOTE ---
First PD exchange finished without incident.
--- NOTE | 2024-12-14 09:07 | W.PN.HOSP.TC ---
Today's Communication/Plan
-
Asked PT/OT to reevaluate
Assessment / Plan
Assessment / Plan
Syncope -likely due to orthostatic hypotension. Lisinopril just initiated prior to admission likely contributing to drop in blood pressure as well. Orthostatic based on vitals. Continue compression stockings. Continue midodrine. Patient states
he has not been using compression stockings at home. Of note he was hypotensive on arrival, blood pressure improved. Lisinopril discontinued. Unclear if volume depletion contributing to hypotension. Admits to poor appetite. States he was
prescribed an appetite stimulant recently, possibly mirtazapine. Orthostatic vital signs negative after receiving midodrine
Leukocytosis -without fever. Unclear etiology but possible leukemoid reaction. No evidence of infection thus far.
PAD - Lower extremity arterial studies done in July and noted. Does have cramps with ambulation. Appreciate vascular surgery input, patient's claudication is not debilitating. No urgent indication for further workup, recommend outpatient
follow-up in the office in 4 weeks
ESRD on PD -nephrology following. Daughter asking about hemodialysis so patient can go to rehab, nephrology informed
Chronic hyponatremia -sodium at baseline.
Hypokalemia -repleted and resolved. Magnesium normal.
Paroxysmal atrial fibrillation -continue Eliquis, amiodarone.
Chronic heart failure reduced EF -stable.
Hypothyroidism -Synthroid.
Chronic anemia -monitor hemoglobin
CAD/CABG -continue aspirin, statin, Eliquis
Hyperlipidemia -atorvastatin
History of stroke
Ambulatory dysfunction -uses a walker at home. PT recommending SNF. Family aware.
DVT prophylaxis�Eliquis
DNR
Total time spent to see the patient on the floor, examine the patient, review data and lab results, discuss treatment plan with patient, nursing staff around 40 minutes.
Physical exam
Gen-awake, alert, NAD
HEENT-NC, AT, anicteric, clear oral mm
Neck-supple
CV-reg, no M, +S1/S2
Lungs-clear B/L
Abd-soft, nondistended, mildly tender, no guarding or rebound
Ext-no edema
Musculoskeletal-no cyanosis, clubbing
Skin-warm and dry, superficial wound over right knee without signs of infection
Anticipated Discharge: 24 - 48 hours
Subjective/Interval History
-
Date of Service: December 14, 2024
Patient denies lightheadedness and dizziness. He reports having a bowel movement. No chest pain, no shortness of breath. No fever, no vomiting.
Objective Data
-
Labs:
Laboratory Results
12/14/24
04:10
WBC 10.8
Hgb 9.4 L
Hct 28.9 L
Plt Count 380
PT 16.1 H
INR 1.26
Sodium 131 L
Potassium 4.9 D
Chloride 95 L
Carbon Dioxide 30
BUN 27 H
Creatinine 6.0 H*
Glucose 71
Calcium 8.0 L
Vital Signs:
Vital Signs
Temp Pulse Resp BP Pulse Ox
98.0 F 68 16 126/47 98
12/14/24 07:31 12/13/24 23:00 12/13/24 23:00 12/14/24 08:02 12/13/24 23:00
I&O
12/13/24 12/14/24 12/15/24
06:59 06:59 06:59
Intake Total 1240 / 1240 300 / 300
Output Total 900 / 900 600 / 600
Balance 340 / 340 -300 / -300
--- NOTE | 2024-12-14 10:38 | W.PN.NEPH.PH ---
Today's Communication / Plan
-
PT/OT
Assessment/Plan
-
Impression:
Syncope
Orthostasis
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
Left carotid stenosis
End-stage renal disease on peritoneal dialysis
Hypertension
Paroxysmal atrial fibrillation
Hyperphosphatemia
Anemia
History of CABG
h/o bilat CEA at [facility]
TCAR 08/11/2024
Plan:
PD ordered, continue 1.5%solutions, 2L, q4H
wean midodrine as allowed to baseline 2.5mg BID dosing eventually
in future, only hydralazine 5mg prn SBP>180.
needs reeval by PT/OT. I would be remiss in thinking that his falls are the reason he needs rehab when these were precipitated by obvious hypotensive episodes and not by weakness.
Even this current admission was precipitated by hypotension because of alteration of his midodrine regimen. If physical therapy believes he still requires rehab stay, he will require a tunneled dialysis catheter for hemodialysis
-
-
Date of Service: December 14, 2024
CC / HPI / ROS
-
Chief Complaint:
ESRD PD
History of Present Illness:
k better 4.9
sodium stable 131
BP stable on midodrine
Review of Systems:
no dizziness this am
tolerating po
no cp or sob
Labs
-
Labs:
WBC 10.8 10^3/uL (4.8-10.8) 12/14/24 04:10
RBC 3.03 10^6/uL (4.70-6.10) L 12/14/24 04:10
Hgb 9.4 g/dL (13.0-18.0) L 12/14/24 04:10
Hct 28.9 % (39.0-52.0) L 12/14/24 04:10
Plt Count 380 10^3/uL (130-400) 12/14/24 04:10
Sodium 131 mmol/L (135-145) L 12/14/24 04:10
Potassium 4.9 mmol/L (3.5-5.1) D 12/14/24 04:10
Chloride 95 mmol/L (98-107) L 12/14/24 04:10
Carbon Dioxide 30 mmol/L (22-30) 12/14/24 04:10
BUN 27 mg/dl (9-20) H 12/14/24 04:10
Creatinine 6.0 mg/dL (0.7-1.3) H* 12/14/24 04:10
eGFR 8.97 12/14/24 04:10
Glucose 71 mg/dl (70-99) 12/14/24 04:10
Calcium 8.0 mg/dl (8.4-10.2) L 12/14/24 04:10
Albumin 3.2 g/dl (3.5-5.0) L 12/09/24 21:52
Physical Exam
-
Vital Signs:
Vital Signs
Temp Pulse Resp BP Pulse Ox
98.0 F 68 16 126/47 98
12/14/24 07:31 12/13/24 23:00 12/13/24 23:00 12/14/24 08:24 12/13/24 23:00
Cardiovascular:: Regular rate and rhythm
Respiratory:: Bilateral: CTA
Lung Excursion:: Normal
Abdomen:: Nontender and Soft
Bowel Sounds:: Normal
Extremity Edema:: None: Bilateral:
--- NOTE | 2024-12-14 16:59 | CM ---
Patient with Hx ESRD on PD with Dx syncope, Suspected orthostatic hypotension. Room air. Receiving Midodrine. Seen by wound care nurse. PT/OT recommend skilled rehab.
Message from Dr Bower; the sawmilling operator will order tunneled HD catheter which can be done once he has SNF bed.
Met with patient and spoke with his daughter Alivia by phone; patient and he agrees to the HD catheter and going to SNF for rehab, as his son/Dtr already talked to him about that. He has no SNF preferences.
Spoke with daughter Alivia; she would like a referral to [facility] SNF for rehab.
Pako Bunch wants to be sure we are aware that the family's intention is to leave the PD caths in for future PD---> message to Dr Bower.
Alivia relays that if PD caths remain, the PD line needs to be flushed with dialysate once/week- CM unsure if SNF will be able to do that PD procedure. Alivia is also asking if she can do that PD flush procedure herself for her father at the
SNF---> CM will need to ask SNF.
Plan follow up SNF referral.
[2024-12-14] MEDS: ProAmatine PO (17:43)
[2024-12-14] MEDS: TYLENOL 500 MG PO ×2 (17:59→21:02)
[2024-12-14] MEDS: REMERON 15 MG PO (21:02)
[2024-12-14] MEDS: SENOKOT-S PO (21:02)
[2024-12-15] VITALS (10 sets, daily range): BP systolic 65–157; BP diastolic 41–60; BMI 22.5
[2024-12-15] MEDS: MAALOX 30 ML PO ×2 (03:27→08:33)
[2024-12-15 04:38] LABS: Hematocrit 28.8 % (39.0-52.0); Hemoglobin 9.3 g/dL (13.0-18.0); Mean Corp Hgb Conc. 32.3 g/dL (33.0-37.0); Mean Platelet Volume 9.4 fL (7.4-10.4); Platelet Count 362 10^3/uL (130-400); Red Cell Dist. Width 20.1 % (11.5-14.5); White Blood Cell Count 10.1 10^3/uL (4.8-10.8)
[2024-12-15 05:06] LABS: Blood Urea Nitrogen 31 mg/dl (9-20); Carbon Dioxide 31 mmol/L (22-30); Chloride 96 mmol/L (98-107); Estimated Creatinine Clearance 10 ml/min; Glucose 89 mg/dl (70-99); Potassium 4.7 mmol/L (3.5-5.1); Sodium 130 mmol/L (135-145); Uric Acid 4.4 mg/dl (3.5-8.5); eGFR 9.54
[2024-12-15] MEDS: SYNTHROID 150 MCG PO (05:52)
[2024-12-15] MEDS: ProAmatine 2.5 MG PO ×2 (08:12→16:38)
[2024-12-15] MEDS: PROTONIX 40 MG PO (08:12)
[2024-12-15] MEDS: LOW STRENGTH ASPIRIN 81 MG PO (08:12)
[2024-12-15] MEDS: LIPITOR 40 MG PO (08:13)
[2024-12-15] MEDS: PACERONE 200 MG PO (08:16)
[2024-12-15] MEDS: SANTYL OINTMENT 1 APPLIC TOPICAL (08:17)
[2024-12-15] MEDS: VITAMIN B-12 1000 MCG PO (08:17)
[2024-12-15] MEDS: SENOKOT-S 2 TABLET PO (08:17)
[2024-12-15] MEDS: ELIQUIS 2.5 MG PO ×2 (08:17→20:27)
[2024-12-15] MEDS: KCL 20 MEQ PO ×2 (08:17→20:27)
[2024-12-15] MEDS: TUMS CHEWABLE TABLET 200 MG PO (08:17)
[2024-12-15] MEDS: MIRALAX PO (08:25)
--- NOTE | 2024-12-15 09:35 | W.PN.HOSP.TC ---
Today's Communication/Plan
-
see bold
Assessment / Plan
Assessment / Plan
Syncope -likely due to orthostatic hypotension. Lisinopril just initiated prior to admission likely contributing to drop in blood pressure as well. Orthostatic based on vitals. Continue compression stockings. Continue midodrine. Patient states
he has not been using compression stockings at home. Of note he was hypotensive on arrival, blood pressure improved. Lisinopril discontinued. Unclear if volume depletion contributing to hypotension. Admits to poor appetite. States he was
prescribed an appetite stimulant recently, possibly mirtazapine. Orthostatic vital signs negative after receiving midodrine
Leukocytosis -without fever. Unclear etiology but possible leukemoid reaction. No evidence of infection thus far.
PAD - Lower extremity arterial studies done in July and noted. Does have cramps with ambulation. Appreciate vascular surgery input, patient's claudication is not debilitating. No urgent indication for further workup, recommend outpatient
follow-up in the office in 4 weeks
ESRD on PD -nephrology following. Appreciate nephrology input, plan for tunneled HD catheter insertion so patient can go to rehab
Right heel pain -x-rays negative, check uric acid, continue Tylenol as needed
Chronic hyponatremia -sodium at baseline.
Hypokalemia -repleted and resolved. Magnesium normal.
Paroxysmal atrial fibrillation -continue Eliquis, amiodarone.
Chronic heart failure reduced EF -stable.
Hypothyroidism -Synthroid.
Chronic anemia -monitor hemoglobin
CAD/CABG -continue aspirin, statin, Eliquis
Hyperlipidemia -atorvastatin
History of stroke
Ambulatory dysfunction -uses a walker at home. PT recommending SNF. Family aware.
DVT prophylaxis�Eliquis
DNR
Total time spent to see the patient on the floor, examine the patient, review data and lab results, discuss treatment plan with patient, nursing staff around 45 minutes.
Physical exam
Gen-awake, alert, NAD
HEENT-NC, AT, anicteric, clear oral mm
Neck-supple
CV-reg, no M, +S1/S2
Lungs-clear B/L
Abd-soft, nondistended, mildly tender, no guarding or rebound
Ext-no edema
Musculoskeletal-no cyanosis, clubbing
Exquisite right heel tenderness
Skin-warm and dry, superficial wound over right knee without signs of infection
Anticipated Discharge: 24 - 48 hours
Subjective/Interval History
-
Date of Service: December 15, 2024
Patient complains of severe right heel pain. States it started hurting after his wound was dressed. No fever, no vomiting. He had a bowel movement.
Objective Data
-
Labs:
Laboratory Results
12/15/24
03:52
WBC 10.1
Hgb 9.3 L
Hct 28.8 L
Plt Count 362
Sodium 130 L
Potassium 4.7
Chloride 96 L
Carbon Dioxide 31 H
BUN 31 H
Creatinine 5.7 H*
Glucose 89
Calcium 8.0 L
Vital Signs:
Vital Signs
Temp Pulse Resp BP Pulse Ox
98.3 F 77 18 146/48 99
12/15/24 07:20 12/15/24 08:36 12/15/24 08:36 12/15/24 08:16 12/15/24 08:05
I&O
12/14/24 12/15/24 12/16/24
06:59 06:59 06:59
Intake Total 300 / 300 200 / 200 100 / 100
Output Total 600 / 600 1000 / 1000
Balance -300 / -300 -800 / -800 100 / 100
[2024-12-15] MEDS: TYLENOL 1000 MG PO ×2 (10:07→20:37)
--- NOTE | 2024-12-15 10:52 | W.PN.NEPH.PH ---
Today's Communication / Plan
-
see plan
Assessment/Plan
-
Impression:
Syncope
Orthostasis
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
Left carotid stenosis
End-stage renal disease on peritoneal dialysis
Hypertension
Paroxysmal atrial fibrillation
Hyperphosphatemia
Anemia
History of CABG
h/o bilat CEA at [facility]
TCAR 08/11/2024
Plan:
PD - continue 1.5%solutions, 2L, q4H
cont midodrine 2.5mg BID dosing
Bp now mildly elevated, permissive HTN
in future, only hydralazine 5mg prn SBP>180.
suspect he need SNF however PD is difficult to find placement
CM still working on, CVC today vs tomorrow by IR
d/w nursing, CM and IR
d/w pt
-
-
Date of Service: December 15, 2024
CC / HPI / ROS
-
Chief Complaint:
ESRD PD
History of Present Illness:
k stable at 4.7
sodium stable 130
BP stable on midodrine
Review of Systems:
no dizziness this am
tolerating po
no cp or sob
right foot pain
Labs
-
Labs:
WBC 10.1 10^3/uL (4.8-10.8) 12/15/24 03:52
RBC 3.00 10^6/uL (4.70-6.10) L 12/15/24 03:52
Hgb 9.3 g/dL (13.0-18.0) L 12/15/24 03:52
Hct 28.8 % (39.0-52.0) L 12/15/24 03:52
Plt Count 362 10^3/uL (130-400) 12/15/24 03:52
Sodium 130 mmol/L (135-145) L 12/15/24 03:52
Potassium 4.7 mmol/L (3.5-5.1) 12/15/24 03:52
Chloride 96 mmol/L (98-107) L 12/15/24 03:52
Carbon Dioxide 31 mmol/L (22-30) H 12/15/24 03:52
BUN 31 mg/dl (9-20) H 12/15/24 03:52
Creatinine 5.7 mg/dL (0.7-1.3) H* 12/15/24 03:52
eGFR 9.54 12/15/24 03:52
Glucose 89 mg/dl (70-99) 12/15/24 03:52
Calcium 8.0 mg/dl (8.4-10.2) L 12/15/24 03:52
Albumin 3.2 g/dl (3.5-5.0) L 12/09/24 21:52
Physical Exam
-
Vital Signs:
Vital Signs
Temp Pulse Resp BP Pulse Ox
98.3 F 77 18 146/48 99
12/15/24 07:20 12/15/24 08:36 12/15/24 08:36 12/15/24 08:16 12/15/24 08:05
Cardiovascular:: Regular rate and rhythm
Respiratory:: Bilateral: CTA
Lung Excursion:: Normal
Abdomen:: Nontender and Soft
Bowel Sounds:: Normal
Extremity Edema:: None: Bilateral:
Gavin Catheter: No
--- NOTE | 2024-12-15 13:53 | CM ---
business liaison manager reviewed patient's chart and patient was admitted from home where he was receiving PD, patient now requires skilled placement and caser up reached out to several skilled facilities to see if they can provide PD, including [place]
[facility], [facility] and spoke not only with admissions but also promotions director and they cannot provide PD at any of these skilled facilities, therefore plan remains for possible skilled placement at [facility]
referral sent through [employer], admissions to confirm that they can care for PD access at skilled facility. Patient for permanent cath placement today.
Plan; Skilled placement at [facility].
--- NOTE | 2024-12-15 14:03 | PTCARENOTE ---
Patient verbalizing frustration with hospitalization today, therapeutic communication provided. Patient is for dialysis cath today. Patient is NPO. PD completed as per doctors orders. Patient complaining of right heel pain today, treated with
Tylenol with some relief. Discussed with Dr. Bower.
[2024-12-15] MEDS: ANCEF 10 IV (15:14)
--- NOTE | 2024-12-15 16:40 | PTCARENOTE ---
Patient arrived back to [facility] s/p right side dialysis catheter placement. Patient denying pain when asked. Dressing clean, dry and intact. 134/58, 68.
--- NOTE | 2024-12-15 21:00 | PTCARENOTE ---
Pt received from previous RN. Pt AAOx3. frequently making negative comments about the care team and calling them 'idiots'. PD maintained pr orders, see Pd intervention documentation. Assessment as documented. call light in reach.
[2024-12-15] MEDS: REMERON 15 MG PO (22:41)
[2024-12-16] VITALS (8 sets, daily range): BP systolic 145–167; BP diastolic 57–78; BMI 22.5
[2024-12-16 06:04] LABS: Blood Urea Nitrogen 30 mg/dl (9-20); Calcium 8.1 mg/dl (8.4-10.2); Carbon Dioxide 28 mmol/L (22-30); Chloride 94 mmol/L (98-107); Estimated Creatinine Clearance 10 ml/min; Glucose 91 mg/dl (70-99); Potassium 5.2 mmol/L (3.5-5.1); Sodium 129 mmol/L (135-145); eGFR 10.41
[2024-12-16] MEDS: SYNTHROID 150 MCG PO (06:28)
--- NOTE | 2024-12-16 08:02 | W.PN.HOSP.TC ---
Today's Communication/Plan
-
Discharge to rehab tomorrow
Assessment / Plan
Assessment / Plan
Syncope -likely due to orthostatic hypotension. Lisinopril just initiated prior to admission likely contributing to drop in blood pressure as well. Orthostatic based on vitals. Continue compression stockings. Continue midodrine. Patient states
he has not been using compression stockings at home. Of note he was hypotensive on arrival, blood pressure improved. Lisinopril discontinued. Unclear if volume depletion contributing to hypotension. Admits to poor appetite. States he was
prescribed an appetite stimulant recently, possibly mirtazapine. Orthostatic vital signs negative after receiving midodrine. Nephrology recommends hydralazine 5 mg as needed systolic greater than 180. Allow permissive hypertension.
Leukocytosis -without fever. Unclear etiology but possible leukemoid reaction. No evidence of infection thus far.
PAD - Lower extremity arterial studies done in July and noted. Does have cramps with ambulation. Appreciate vascular surgery input, patient's claudication is not debilitating. No urgent indication for further workup, recommend outpatient
follow-up in the office in 4 weeks
ESRD on PD -nephrology following. Appreciate nephrology input, s/p tunneled HD catheter insertion so patient can go to rehab
Right heel pain -x-rays negative, uric acid normal, continue Tylenol as needed
Chronic hyponatremia -sodium at baseline.
Hypokalemia -repleted and resolved. Magnesium normal.
Paroxysmal atrial fibrillation -continue Eliquis, amiodarone.
Chronic heart failure reduced EF -stable.
Hypothyroidism -Synthroid.
Chronic anemia -monitor hemoglobin
CAD/CABG -continue aspirin, statin, Eliquis
Hyperlipidemia -atorvastatin
History of stroke
Ambulatory dysfunction -uses a walker at home. PT recommending SNF. Family aware.
DVT prophylaxis�Eliquis
DNR
Total time spent to see the patient on the floor, examine the patient, review data and lab results, discuss treatment plan with patient, nursing staff around 44 minutes.
Physical exam
Gen-awake, alert, NAD
HEENT-NC, AT, anicteric, clear oral mm
Neck-supple
CV-reg, no M, +S1/S2
Lungs-clear B/L
Abd-soft, nondistended, mildly tender, no guarding or rebound
Ext-no edema
Musculoskeletal-no cyanosis, clubbing
Exquisite right heel tenderness
Skin-warm and dry, superficial wound over right knee without signs of infection
Anticipated Discharge: Within 24 hours
Subjective/Interval History
-
Date of Service: December 16, 2024
R heel pain resolved. Denies lightheadedness, denies dizziness. He had a bowel movement. No fever, no vomiting.
Objective Data
-
Labs:
Laboratory Results
12/16/24
05:05
Sodium 129 L
Potassium 5.2 H
Chloride 94 L
Carbon Dioxide 28
BUN 30 H
Creatinine 5.3 H*
Glucose 91
Calcium 8.1 L
Vital Signs:
Vital Signs
Temp Pulse Resp BP Pulse Ox
97.0 F 73 20 167/71 100
12/16/24 03:00 12/16/24 01:12 12/16/24 01:12 12/16/24 01:12 12/16/24 01:12
I&O
12/15/24 12/16/24 12/17/24
06:59 06:59 06:59
Intake Total 200 / 200 320 / 320
Output Total 1000 / 1000 600 / 600
Balance -800 / -800 -280 / -280
[2024-12-16] MEDS: LOW STRENGTH ASPIRIN 81 MG PO (08:06)
[2024-12-16] MEDS: ProAmatine PO ×2 (08:07→16:02)
[2024-12-16] MEDS: TUMS CHEWABLE TABLET 200 MG PO (08:07)
[2024-12-16] MEDS: VITAMIN B-12 1000 MCG PO (08:07)
[2024-12-16] MEDS: PACERONE 200 MG PO (08:08)
[2024-12-16] MEDS: ELIQUIS 2.5 MG PO ×2 (08:08→20:26)
[2024-12-16] MEDS: LIPITOR 40 MG PO (08:08)
[2024-12-16] MEDS: PROTONIX 40 MG PO (08:09)
[2024-12-16] MEDS: SANTYL OINTMENT 1 APPLIC TOPICAL (08:09)
--- NOTE | 2024-12-16 09:00 | PTCARENOTE ---
Pt AAOx3 very agitated today cursing at everyone not happy about anything. PD exchange done as ordered without incident
--- NOTE | 2024-12-16 11:25 | W.PN.NEPH.PH ---
Today's Communication / Plan
-
HD today
Assessment/Plan
-
Impression:
Syncope
Orthostasis
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
Left carotid stenosis
End-stage renal disease on peritoneal dialysis
Hypertension
Paroxysmal atrial fibrillation
Hyperphosphatemia
Anemia
History of CABG
h/o bilat CEA at [facility]
TCAR 08/11/2024
Plan:
now has tunneled catheter
drain PD fluid , keep dry
will get HD 2hr today
potential d/c to SNF
cont midodrine 2.5mg BID dosing
stop kcl
permissive HTN for orthostatic hypotension
in future, only hydralazine 5mg prn SBP>180.
d/w nursing, CM and pt
-
-
Date of Service: December 16, 2024
CC / HPI / ROS
-
Chief Complaint:
ESRD PD
History of Present Illness:
k up at 5.2
sodium down to 128
BP stable on midodrine
Review of Systems:
tolerating po
no cp or sob
right foot pain improving
Labs
-
Labs:
WBC 10.1 10^3/uL (4.8-10.8) 12/15/24 03:52
RBC 3.00 10^6/uL (4.70-6.10) L 12/15/24 03:52
Hgb 9.3 g/dL (13.0-18.0) L 12/15/24 03:52
Hct 28.8 % (39.0-52.0) L 12/15/24 03:52
Plt Count 362 10^3/uL (130-400) 12/15/24 03:52
Sodium 129 mmol/L (135-145) L 12/16/24 05:05
Potassium 5.2 mmol/L (3.5-5.1) H 12/16/24 05:05
Chloride 94 mmol/L (98-107) L 12/16/24 05:05
Carbon Dioxide 28 mmol/L (22-30) 12/16/24 05:05
BUN 30 mg/dl (9-20) H 12/16/24 05:05
Creatinine 5.3 mg/dL (0.7-1.3) H* 12/16/24 05:05
eGFR 10.41 12/16/24 05:05
Glucose 91 mg/dl (70-99) 12/16/24 05:05
Calcium 8.1 mg/dl (8.4-10.2) L 12/16/24 05:05
Albumin 3.2 g/dl (3.5-5.0) L 12/09/24 21:52
Physical Exam
-
Vital Signs:
Vital Signs
Temp Pulse Resp BP Pulse Ox
98.3 F 91 18 159/75 96
12/16/24 07:36 12/16/24 08:08 12/16/24 07:36 12/16/24 08:08 12/16/24 08:00
Cardiovascular:: Regular rate and rhythm
Respiratory:: Bilateral: CTA
Lung Excursion:: Normal
Abdomen:: Nontender and Soft
Bowel Sounds:: Normal
Extremity Edema:: None: Bilateral:
Gavin Catheter: No
[2024-12-16] MEDS: ProAmatine 2.5 MG PO (12:04)
--- NOTE | 2024-12-16 12:50 | PTCARENOTE ---
PT now on HD , PT drained but not filled as PD is now done for now. PD cath in pouch around abd
[2024-12-16] MEDS: RETACRIT 4000 UNITS IV (13:37)
--- NOTE | 2024-12-16 14:57 | W.PN.NEPH.HD ---
Assessment
-
pt seen during HD
vitals stbale
no UF
CVC functions well
HD tomorrow since he still here, pending hepatitis panel
Progress Note - Hemodialysis
-
Date of Service: December 16, 2024
Duration: 2 hours
Potassium Bath: 2
Calcium Bath: 2.5
Opti-Dialyzer: 160
Ultrafiltration: Other (0)
Blood Flow: 350
Dialysate Flow: 600
Heparin: no
EPO: 4000
--- NOTE | 2024-12-16 16:48 | CM ---
Patient with Hx ESRD on PD with Dx syncope, Suspected orthostatic hypotension, s/p tunneled HD catheter insertion. First HD today. Room air.
Patient declined by [facility] due to [employer] and SNF Nurses are unable to do once weekly PD flush.
Spoke with [facility]; no HD chairs available at this time. They are also unable to do once weekly PD flush.
[facility] is currently closed and not accepting patients.
Declined by [facility].
[facility]; interested but no decision at this time.
Spoke with [facility] (cell [phone], ph [phone], fax [phone]); they are able to accept the patient tomorrow and can provide inhouse HD as well as do the once weekly PD flushes. Flow sheets were faxed. Will need
Hepatitis labs faxed once completed.
Spoke with [facility]; she emailed patient's recent labwork however only Hep B Surface AG was done.
Met with patient and daughter Alivia; both agree to [facility] tomorrow after HD, by ambulance transport. IMM completed.
Plan fax Hep B labs once completed.
Plan [facility] SNF tomorrow by ambulance.
[2024-12-16 18:25] LABS: Hepatitis B Surface Antigen Negative (Negative)
[2024-12-16 18:42] LABS: Hepatitis B Core Ab, Total Negative (Negative); Hepatitis B Surface Antibody Negative; Hepatitis C Antibody Negative (Negative)
--- NOTE | 2024-12-16 20:27 | PTCARENOTE ---
pt received from previous RN. pt AAOx3. v/s obtained by this RN. 99% on RA. took pills whole with water. call light in reach.
[2024-12-16] MEDS: REMERON 15 MG PO (22:25)
[2024-12-17 00:42] VITALS: BP 168/85
[2024-12-17 05:48] VITALS: BMI 22.2
[2024-12-17] MEDS: SYNTHROID 150 MCG PO (06:41)
[2024-12-17 07:42] VITALS: BP 178/69
[2024-12-17] MEDS: RETACRIT 4000 UNITS IV (08:14)
[2024-12-17 08:41] LABS: Blood Urea Nitrogen 20 mg/dl (9-20); Calcium 7.9 mg/dl (8.4-10.2); Carbon Dioxide 31 mmol/L (22-30); Chloride 99 mmol/L (98-107); Estimated Creatinine Clearance 12 ml/min; Glucose 72 mg/dl (70-99); Potassium 5.1 mmol/L (3.5-5.1); Sodium 132 mmol/L (135-145); eGFR 13.38
--- NOTE | 2024-12-17 09:35 | W.PN.HOSP.TC ---
Today's Communication/Plan
-
Discharge to short-term rehab today
Assessment / Plan
Assessment / Plan
Syncope -likely due to orthostatic hypotension. Lisinopril just initiated prior to admission likely contributing to drop in blood pressure as well. Orthostatic based on vitals. Continue compression stockings. Continue midodrine. Patient states
he has not been using compression stockings at home. Of note he was hypotensive on arrival, blood pressure improved. Lisinopril discontinued. Unclear if volume depletion contributing to hypotension. Admits to poor appetite. States he was
prescribed an appetite stimulant recently, possibly mirtazapine. Orthostatic vital signs negative after receiving midodrine. Nephrology recommends discharging on midodrine 2.5 mg twice a day, and hydralazine 5 mg as needed systolic greater than
180. Allow permissive hypertension.
Leukocytosis -without fever. Unclear etiology but possible leukemoid reaction. No evidence of infection thus far.
PAD - Lower extremity arterial studies done in July and noted. Does have cramps with ambulation. Appreciate vascular surgery input, patient's claudication is not debilitating. No urgent indication for further workup, recommend outpatient
follow-up in the office in 4 weeks
ESRD on PD -nephrology following. Appreciate nephrology input, s/p tunneled HD catheter insertion so patient can go to rehab
Right heel pain -x-rays negative, uric acid normal, continue Tylenol as needed
Chronic hyponatremia -sodium at baseline.
Hypokalemia -repleted and resolved. Magnesium normal.
Paroxysmal atrial fibrillation -continue Eliquis, amiodarone.
Chronic heart failure reduced EF -stable.
Hypothyroidism -Synthroid.
Chronic anemia -monitor hemoglobin
CAD/CABG -continue aspirin, statin, Eliquis
Hyperlipidemia -atorvastatin
History of stroke
Ambulatory dysfunction -uses a walker at home. PT recommending SNF. Family aware.
DVT prophylaxis�Eliquis
DNR
Updated daughter on phone 12/16
Physical exam
Gen-awake, alert, NAD
HEENT-NC, AT, anicteric, clear oral mm
Neck-supple
CV-reg, no M, +S1/S2
Lungs-clear B/L
Abd-soft, nondistended, mildly tender, no guarding or rebound
Ext-no edema
Musculoskeletal-no cyanosis, clubbing
Exquisite right heel tenderness
Skin-warm and dry, superficial wound over right knee without signs of infection
Anticipated Discharge: Today
Subjective/Interval History
-
Date of Service: December 17, 2024
Patient denies lightheadedness or dizziness with standing. No fever, no vomiting. No chest pain, no shortness of breath.
Objective Data
-
Labs:
Laboratory Results
12/17/24
07:45
Sodium 132 L
Potassium 5.1
Chloride 99
Carbon Dioxide 31 H
BUN 20
Creatinine 4.3 H*
Glucose 72
Calcium 7.9 L
Vital Signs:
Vital Signs
Temp Pulse Resp BP Pulse Ox
99.2 F 87 16 178/69 97
12/17/24 07:42 12/17/24 07:42 12/17/24 07:42 12/17/24 07:42 12/17/24 07:42
I&O
12/16/24 12/17/24 12/18/24
06:59 06:59 06:59
Intake Total 320 / 320 1160 / 1160
Output Total 600 / 600 400 / 400
Balance -280 / -280 760 / 760
--- NOTE | 2024-12-17 10:53 | W.PN.NEPH.HD ---
Assessment
-
Seen on HD. no complaints. VSS, access ok
for rehab
Progress Note - Hemodialysis
-
Date of Service: December 17, 2024
Duration: 30 minutes and 3 hours
Potassium Bath: 3
Calcium Bath: 2.5
Opti-Dialyzer: 160
Ultrafiltration: Other
Blood Flow: 400
Dialysate Flow: 600
Heparin: no
EPO: 4000 units
[2024-12-17] MEDS: TYLENOL 1000 MG PO (10:58)
[2024-12-17] MEDS: TUMS CHEWABLE TABLET 200 MG PO (10:58)
[2024-12-17] MEDS: LOW STRENGTH ASPIRIN 81 MG PO (10:58)
[2024-12-17] MEDS: PROTONIX 40 MG PO (10:58)
[2024-12-17] MEDS: LIPITOR 40 MG PO (10:59)
[2024-12-17] MEDS: ELIQUIS 2.5 MG PO (10:59)
[2024-12-17] MEDS: SANTYL OINTMENT 1 APPLIC TOPICAL (11:00)
[2024-12-17] MEDS: VITAMIN B-12 1000 MCG PO (11:00)
[2024-12-17] MEDS: ProAmatine 2.5 MG PO (11:04)
[2024-12-17] MEDS: PACERONE 200 MG PO (11:04)
--- NOTE | 2024-12-17 11:18 | CM ---
Addendum entered by TAYLOR Barger 12/17/24 12:36:
Spoke with Angelina who stated that she can accept patient, today. Medical necessity form and transfer sheet completed.
Met with patient, reviewed IMM, he is agreeable to discharge. It is now on chart.
Original Note:
Spoke with previous CM following patient. Placed a call to Angelina at [facility] who stated that she is just awaiting: Hep Bs Antigen, Hep Bs Antibody and Hep B Core Antibody. She stated to fax that to, . Faxed all labs.
Labs faxed. Angelina stated that as soon as she receives it, patient will be cleared to transfer over. She will confirm receipt.
# For report [phone] Ask for Duyen # for
Plan: Case management will continue to follow and assist with discharge planning. [facility].
--- NOTE | 2024-12-17 11:40 | W.DCSUMMARY ---
Discharge Summary
Discharge Data
Date of Admission: 12/10/24
Date of Discharge: 12/17/24
-
Pending Results: No
Hospital Course
Discharge diagnosis:
Syncope
Orthostatic hypotension
Weakness
Leukocytosis
Peripheral artery disease
End-stage renal failure on dialysis
Right heel pain
Chronic hyponatremia
Hypokalemia
Paroxysmal atrial fibrillation
Chronic heart failure with reduced ejection fraction
Chronic anemia
Consults: Nephrology
Procedures:
Insertion of tunneled hemodialysis catheter by IR on 12/15/2024
Hospital course:
79-year-old male with a past medical history of end-stage renal failure on peritoneal dialysis, atrial fibrillation, CHF, PAD, and anemia was admitted for syncope secondary to orthostatic hypotension. Patient is on lisinopril at home, this was
discontinued. He was started on midodrine. He did not have any more orthostatic hypotension. Nephrology recommends he be discharged on midodrine 2.5 mg twice a day. He also needs to be allowed permissive hypertension, and should only get
hydralazine 5 mg as needed for systolic blood pressure greater than 180.
Patient has peripheral artery disease, and was seen in conjunction with vascular surgery. Patient does have intermittent claudication. However it is not debilitating. There is no urgent indication for inpatient workup. Vascular surgery
recommends outpatient follow-up in the office in 4 weeks.
Patient was seen in conjunction with physical therapy. PT recommended short-term rehab. He had a tunneled hemodialysis catheter inserted by IR so he can be set up for short-term rehab. He will undergo hemodialysis at the rehab. His peritoneal
dialysis catheter is maintained, so he can resume peritoneal dialysis when he returns home. He is medically stable and cleared by nephrology for discharge. He needs to follow-up with his primary care doctor 1 week after he leaves rehab, as well as
vascular surgery in the office.
Disposition: Short-term rehab
Discharge planning: Required 43 minutes
Discharge Plan
-
Patient Disposition: Group Home/SNF
Discharge Diagnosis/Procedures: Weakness, mechanical fall, orthostatic hypotension, end-stage renal failure requiring dialysis, hypertension
Condition: Fair
Diet: Low Fat and Low Cholesterol
Additional Diets: Low potassium diet
Activity: As tolerated
Driving Restrictions: As prior to admission
Others Tests: Your follow up arterial ultrasound with [facility] is on 01/04/2025 at 10am here at [facility]
Activity Restrictions/Additional Instructions:
Continue midodrine 2.5 mg twice a day.
You are at high risk for falls.
Allow permissive hypertension/high blood pressure to reduce your risk of falls.
Nephrology recommends hydralazine 5 mg as needed for systolic blood pressure greater than 180.
Follow-up with your primary care doctor 1 week after you leave rehab, and vascular surgery as directed.
Wound Care Instructions
R knee wound-clean with saline, Santyl ointment, adaptic, silicone border foam, change daily and as needed for loosened dressing.
Elevate heels off bed with pillow or air chair cushion.
Pressure redistributing chair cushion (i.e. Air chair cushion).
Follow up with Vascular Dr. Saulo Nickerson.
Follow up at wound care center call for an appointment.
Referrals:
Iliana Hoang CRNP [Family Provider] - in one week
Saulo Nickerson MD [Active] - 01/11/25 2:00 pm
Prescriptions:
New
acetaminophen [Tylenol Extra Strength] 500 mg Tablet
1,000 mg PO QIDPRN PRN (Reason: pain or fever) Qty: 0 0RF
hydralazine 10 mg tablet
5 mg PO TID PRN (Reason: SBP > 180 ) Qty: 30 0RF
midodrine 2.5 mg tablet
2.5 mg PO BID Qty: 60 0RF
Continued
amiodarone 200 mg Tablet
200 mg PO DAILY
cyanocobalamin (vitamin B-12) 1,000 mcg Tablet
1,000 mcg PO DAILY
magnesium oxide 400 mg (241.3 mg magnesium) Tablet
400 mg PO DAILY
docusate sodium [Colace] 100 mg Capsule
100 mg PO DAILY
atorvastatin 40 mg Tablet
40 mg PO DAILY
levothyroxine 150 mcg Tablet
150 mcg PO DAILY
calcium carbonate 500 mg calcium (1,250 mg) Tablet,Chewable
500 mg PO DAILY
Dialyvite 800 800 mcg Tablet,Chewable
1 tab PO DAILY
Eliquis 5 mg tablet
2.5 mg PO BID
pantoprazole 40 mg Tablet,Delayed Release (Dr/Ec)
40 mg PO DAILY Qty: 30 0RF
aspirin 81 mg Tablet,Chewable
81 mg PO DAILY
Benefiber (wheat dextrin) 1 gram Tablet
1 g PO BID
hydrocortisone acetate 25 mg suppository
25 mg NV DAILYPRN PRN (Reason: hemorrhoid)
sennosides-docusate sodium [Senokot-S] 8.6-50 mg Tablet
1 tab-cap PO DAILYPRN PRN (Reason: constipation)
mirtazapine 15 mg Tablet
15 mg PO DAILY
Santyl 250 unit/gram Ointment
1 applic TOPICAL DAILY
Patient Comments:
right knee
Discontinued
acetaminophen [Tylenol Extra Strength] 500 mg Tablet
1,000 mg PO Q6HPRN PRN (Reason: mild pain)
lisinopril 20 mg Tablet
20 mg PO DAILY
Discharge Orders:
Discharge Patient (As Directed); Ordered 12/17/24
Ordered By: Gaurav Bower
Discharge Date and Time
Discharge Date/Time: 12/17/24 18:08
Print Language: SERBIAN
[2024-12-17 15:07] VITALS: BP 141/51
[2024-12-17] MEDS: ProAmatine PO (16:44)
== END 2024-12-17 18:08 | DRG 312 ==
LOC: 3 WEST ACU 00:49
PROVIDERS: Hospitalist; Nurse Practitioner Family; Radiology Diagnostic Radiology; Specialist; ADMITTING PHYSICIAN Hospitalist; ATTENDING PHYSICIAN Family Medicine; EMERGENCY PHYSICIAN Emergency Medicine; FAMILY PHYSICIAN Nurse Practitioner Family; OTHER PHYSICIAN Internal Medicine
PROC: 05HM33Z Insertion of Infusion Device into Right Internal Jugular Vein, Percutaneous Approach (ICD-10-PCS; 2024-12-15)
PROC: 0JH63XZ Insertion of Tunneled Vascular Access Device into Chest Subcutaneous Tissue and Fascia, Percutaneous Approach (ICD-10-PCS; 2024-12-15)
PROC: 5A1D70Z Performance of Urinary Filtration, Intermittent, Less than 6 Hours Per Day (ICD-10-PCS; 2024-12-16)
DX: I95.1 Orthostatic hypotension (principal); N18.6 End stage renal disease; I13.2 Hypertensive heart and chronic kidney disease with heart failure and with stage 5 chronic kidney disease, or end stage renal disease; I50.22 Chronic systolic (congestive) heart failure; E87.1 Hypo-osmolality and hyponatremia; E87.6 Hypokalemia; Z66 Do not resuscitate; T46.4X5A Adverse effect of angiotensin-converting-enzyme inhibitors, initial encounter; I25.10 Atherosclerotic heart disease of native coronary artery without angina pectoris; I48.0 Paroxysmal atrial fibrillation; K21.9 Gastro-esophageal reflux disease without esophagitis; D63.1 Anemia in chronic kidney disease; D72.829 Elevated white blood cell count, unspecified; E03.9 Hypothyroidism, unspecified; E78.00 Pure hypercholesterolemia, unspecified; E83.39 Other disorders of phosphorus metabolism; F32.A Depression, unspecified; F41.9 Anxiety disorder, unspecified; I65.22 Occlusion and stenosis of left carotid artery; K59.00 Constipation, unspecified; M79.671 Pain in right foot; I70.213 Atherosclerosis of native arteries of extremities with intermittent claudication, bilateral legs; S80.211A Abrasion, right knee, initial encounter; X58.XXXA Exposure to other specified factors, initial encounter; Z86.73 Personal history of transient ischemic attack (TIA), and cerebral infarction without residual deficits; Z95.1 Presence of aortocoronary bypass graft; Z87.891 Personal history of nicotine dependence; Z99.2 Dependence on renal dialysis; Z79.899 Other long term (current) drug therapy; Z79.890 Hormone replacement therapy; Z79.82 Long term (current) use of aspirin; Z79.01 Long term (current) use of anticoagulants
CPT/HCPCS: 36558; 73620; 74018; 76937; 77001; 80048; 80053; 83735; 84550; 85025; 85027; 85610; 86704; 86706; 86803; 87015; 87040; 87045; 87046; 87070; 87205; 87324; 87340; 87427; 87449; 89051; 89055; 93005; 96374; 97116; 97530; 97535; 99152; 99153; 99291; C1750; G0257; P9047; Q5106

== ENCOUNTER → 2025-02-15 10:24 | Outpatient (REF) | payer MEDICARE, BC, SELFPAY ==
[2025-02-15 10:45] VITALS: BP 101/49; BP_SYST 68
[2025-02-15 11:20] VITALS: BP 127/47
== END ==
LOC: RADI 10:24
PROVIDERS: ATTENDING PHYSICIAN Internal Medicine
DX: Z49.01 Encounter for fitting and adjustment of extracorporeal dialysis catheter (principal); N18.6 End stage renal disease
CPT/HCPCS: 36589

== ENCOUNTER → 2025-02-16 13:39 | Outpatient (REF) | payer MEDICARE, BC, SELFPAY | LOC: RAD 13:39 | PROVIDERS: ATTENDING PHYSICIAN Surgery Vascular Surgery; FAMILY PHYSICIAN Nurse Practitioner Family | DX: I73.9 Peripheral vascular disease, unspecified (principal) | CPT/HCPCS: 93922; 93925 ==

== ENCOUNTER 2025-03-23 07:56 | Inpatient (IN) | payer MEDICARE, BC, SELFPAY ==
[2025-03-21] VITALS (8 sets, daily range): BP systolic 101–141; BP diastolic 52–87; BMI 19.7
[2025-03-21 12:47] LABS: Hematocrit 40.7 % (39.0-52.0); Hemoglobin 13.4 g/dL (13.0-18.0); Mean Corp Hgb Conc. 32.9 g/dL (33.0-37.0); Mean Corpuscular Volume 91.1 fL (80.0-94.0); Mean Platelet Volume 9.9 fL (7.4-10.4); Platelet Count 408 10^3/uL (130-400); Red Blood Cell Count 4.47 10^6/uL (4.70-6.10); Red Cell Dist. Width 16.6 % (11.5-14.5)
[2025-03-21 13:09] LABS: ALT (SGPT) 26 U/L (0-50); AST (SGOT) 20 U/L (17-59); Albumin 3.3 g/dl (3.5-5.0); Alkaline Phosphatase 110 U/L (38-126); Blood Urea Nitrogen 29 mg/dl (9-20); Calcium 9.1 mg/dl (8.4-10.2); Carbon Dioxide 30 mmol/L (22-30); Chloride 94 mmol/L (98-107); Glucose 121 mg/dl (70-99); Lipase 86 U/L (23-300); Potassium 4.1 mmol/L (3.5-5.1); Sodium 135 mmol/L (135-145); Total Bilirubin 0.4 mg/dl (0.2-1.3); Total Protein 5.8 g/dl (6.3-8.2); eGFR 5.67
[2025-03-21 13:33] LABS: % Basophils 0.3 % (0-2); % Immature Granulocytes 0.7 % (0-0.5); % Lymphocytes 7.5 % (20.5-51.1); % Monocytes 4.2 % (1.7-9.3); % Neutrophils 87.3 % (42.2-75.2); Absolute Basophils 0.1 10^3/uL (0-0.2); Absolute Immature Granulocytes 0.2 10^3/uL (0-0.05); Absolute Lymphocytes 1.7 10^3/uL (1.2-3.4); Absolute Neutrophils 20.1 10^3/uL (1.4-6.5); Nucleated Red Blood Cells % 0 % (-)
--- NOTE | 2025-03-21 13:34 | ED.GENMED ---
History of Present Illness
General
Chief Complaint: Abdominal Symptoms
Source: patient
Exam Limitations: none
Time Seen by Provider: 03/21/25 13:32
Nursing documentation reviewed up to this point in time: agreed with
History of Present Illness
History of Present Illness:
79-year-old male with history of CVA, A-fib on Eliquis, CHF, HTN, HLD, carotid stent, GI bleed, chronic renal failure, peritoneal dialysis, hypothyroid, anemia cardiac stent, presents for nausea vomiting and diarrhea. Has had diarrhea off and on
since 02/21 and daughter at bedside states they were keeping an eye on it but it has become worse in the past 3 days with bloody diarrhea.
Last emesis 5 a.m. Feels nauseous now. Last diarrhea 10 last p.m., bloody.
No known sick contacts, no recent travel. No recent antibiotics. Makes little urine. Did PD last night.
Past History
Past History
ED Past Medical History: CVA (Chronic right frontal, acute left occipital and frontal), HTN, Hypercholesterolemia and Other (Renal failure/peritoneal dialysis, left internal carotid artery stenosis, recurrent hypotension/orthostasis)
ED Past Surgical History: Other (Dialysis catheter)
Social History
Tobacco: Non-smoker
Alcohol: None
Personal:
Living: with family
Family History
Family History: Other (Reviewed and noncontributory)
Review of Systems
Review of Systems
Allergies reviewed?: Yes
All Other Systems: ROS reviewed and negative except as documented in HPI and ROS
Constitutional: Reports fever and fatigue
EENT: Denies sore throat
Respiratory: Denies cough or trouble breathing
Cardiac: Denies chest pain or syncope
ABD/GI: Reports nausea, vomiting, diarrhea and bloody stools
Phy Exam
Physical Exam
Physical Exam:
GENERAL: No acute distress. A&Ox3. Weak and frail
CONSTITUTIONAL: Temperature 98.7 rectally
EYES: clear, conjunctivae normal
ENMT: Dry mucus membranes, Pharynx nl
RESPIRATORY: Regular respirations, nonlabored, lungs clear.
CARDIOVASCULAR: Regular rate and rhythm, no murmurs, no rubs.
GI: Soft, nontender, normal BS
Rectal: Dark stool with bright red blood on gloved finger. No palpable or visible hemorrhoids
MUSCULOSKELETAL: Moves with ease. Well perfused. No edema
SKIN: Warm, dry, pink
PSYCH: Normal mood and affect. Well kept, interactive and appropriate
NEUROLOGIC: Awake, alert and oriented. No focal neurological deficits
Course
Orders/Labs/Results
Orders:
Orders
03/21/25 12:35
Complete Blood Count/With Diff Urgent
Comprehensive Metabolic Panel Urgent
Lipase Urgent
03/21/25 13:58
STOOL [C difficile Antigen & Toxins] Urgent
[facility] Source: Feces/Stool
Specimen Description:
Stool Culture Urgent
[facility] Source: Feces/Stool
Specimen Description:
0.9% Sodium Chloride 500 ml [Nss] 500 ml IV BOLUS
Ondansetron Injectable [Zofran] 4 mg IV NOW STA
03/21/25 14:52
CT Abd/Pel (IV only)-DH only Urgent
Comment:
Reason For Exam: diarrhea 1 mo, now with blood, leukocytosis
Abnormal Lab Results
03/21/25
12:35
WBC 23.0 H 10^3/uL
(4.8-10.8)
RBC 4.47 L 10^6/uL
(4.70-6.10)
MCHC 32.9 L g/dL
(33.0-37.0)
RDW 16.6 H %
(11.5-14.5)
Plt Count 408 H 10^3/uL
(130-400)
Abs Immat Gran (auto) 0.2 H 10^3/uL
(0-0.05)
Absolute Neuts (auto) 20.1 H 10^3/uL
(1.4-6.5)
Absolute Monos (auto) 1.0 H 10^3/uL
(0.1-0.6)
Immature Gran % 0.7 H %
(0-0.5)
Neutrophils % 87.3 H %
(42.2-75.2)
Lymphocytes % 7.5 L %
(20.5-51.1)
Chloride 94 L mmol/L
(98-107)
BUN 29 H mg/dl
(9-20)
Creatinine 8.8 H* mg/dL
(0.7-1.3)
Glucose 121 H mg/dl
(70-99)
Total Protein 5.8 L g/dl
(6.3-8.2)
Albumin 3.3 L g/dl
(3.5-5.0)
03/21/25 12:35
03/21/25 12:35
Vital Signs
Initial and Last Documented VS:
Initial Vital Signs
Pulse Resp Pulse Ox
87 16 100
03/21/25 12:38 03/21/25 12:38 03/21/25 12:38
Last Documented Vital Signs
Temp Pulse Resp BP Pulse Ox
98.9 F 79 15 116/52 98
03/21/25 17:45 03/21/25 17:45 03/21/25 17:45 03/21/25 17:00 03/21/25 17:45
MDM/Problems Addressed
Differential Diagnosis Includes:
diverticulitis, colitis, infectious diarrhea, ruptured diverticulum, anal fissure, hemorrhoids,
MDM/Problems Addressed:
79-year-old male with history of CVA, A-fib on Eliquis, CHF, HTN, HLD, carotid stent, GI bleed, chronic renal failure, peritoneal dialysis, hypothyroid, anemia cardiac stent, presents for nausea vomiting and diarrhea. Has had diarrhea off and on
since 02/21 and daughter at bedside states they were keeping an eye on it but it has become worse in the past 3 days with bloody diarrhea.
Last emesis 5 a.m. Feels nauseous now. Last diarrhea 10 last p.m., bloody.
No known sick contacts, no recent travel. No recent antibiotics. Makes little urine. Did PD last night.
1:30 PM:
CBC: WBC 23.0 with a shift
CMP: BUN/creat 29/8.8 patient did his peritoneal dialysis last night
Lipase within normal limits
Rectal exam: Dark schools stool with kelli red blood, no obvious hemorrhoids, no palpable masses
Abdomen benign
2:[address] Singh, nephrology who agrees, ok to give IV contrast to this patient.
5:[address] abd/pelvis w IV only contrast radiology report read:
IMPRESSION:There is mild wall thickening and mucosal hyperenhancement of the distal ileum which likely represents ileitis/enteritis.
There is moderate volume abdominal pelvic ascites, however this may related to peritoneal dialysis. There is a trace focus of pneumoperitoneum which is likely related to the peritoneal dialysis.
Infrarenal abdominal aortic aneurysm measuring 3.3 cm. 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
Colonic diverticulosis.
Hospitalist notified of admission for : Dehydration, rectal bleeding on Eliquis, enteritis
*Critical Care Note
Total Time (30-74mins, 75-104mins- exclusive of procedures): Not Applicable
ED Attending Note
-
Portions of this chart may have been created with voice recognition software.� Occasional wrong word or��sound alike� substitutions may have occurred due to the inherent limitations of voice recognition software.
Discharge Plan
Departure
Patient Disposition: Admit
Date of Disposition: 03/21/25
Time of Disposition: 17:56
Admit to: Med/Surg
Presentation/result/management discussed w/ accepting MD/DO: Hospitalist
Condition: Fair
Discharge Problem:
Acute dehydration, Bright red rectal bleeding, Enteritis
Prescriptions:
No Action
amiodarone 200 mg Tablet
200 mg PO DAILY
cyanocobalamin (vitamin B-12) 1,000 mcg Tablet
1,000 mcg PO DAILY
magnesium oxide 400 mg (241.3 mg magnesium) Tablet
400 mg PO DAILY
atorvastatin 40 mg Tablet
40 mg PO DAILY
levothyroxine 150 mcg Tablet
150 mcg PO DAILY
calcium carbonate 500 mg calcium (1,250 mg) Tablet,Chewable
500 mg PO DAILY
Dialyvite 800 800 mcg Tablet,Chewable
1 tab PO DAILY
Eliquis 5 mg tablet
2.5 mg PO BID
pantoprazole 40 mg Tablet,Delayed Release (Dr/Ec)
40 mg PO DAILY Qty: 30 0RF
aspirin 81 mg Tablet,Chewable
81 mg PO DAILY
Benefiber (wheat dextrin) 1 gram Tablet
1 g PO BID
hydrocortisone acetate 25 mg suppository
25 mg TN DAILYPRN PRN (Reason: hemorrhoid)
mirtazapine 15 mg Tablet
15 mg PO DAILY
hydralazine 10 mg tablet
5 mg PO TIDPRN PRN (Reason: SBP > 180 )
midodrine 2.5 mg tablet
2.5 mg PO BIDPRN PRN (Reason: low blood pressure)
Gaviscon 95-358 mg/15 mL Suspension
15 ml PO DAILYPRN PRN (Reason: gerd)
melatonin 5 mg Tablet
5 mg PO HS
Referrals:
Iliana Hoang CRNP [Family Provider, Family Practice]
Interventions
Interventions:
*Risk Screen - Suicide Last Done: 03/21/25 12:35
*General Assessment Last Done: 03/21/25 12:35
*Neglect/Abuse Screening Last Done: 03/21/25 12:35
*ED- Fall Risk Assessment Last Done: 03/21/25 12:35
*ED COVID-19 Vaccine History Last Done: 03/21/25 12:35
AW-Dtimbp-Tlokhugzyg Assessment Last Done: 03/21/25 12:35
Discharge Date and Time
Print Language: NORWEGIAN
[2025-03-21] MEDS: ZOFRAN 4 MG IV (14:02)
[2025-03-21] MEDS: NSS 500 IV (14:03)
--- NOTE | 2025-03-21 18:09 | HPS.HSE ---
Family Physician
-
Family Physician: LUZ MARIA Wolfe
Chief Complaint
-
nausea, vomiting and diarrhea
History of Present Illness
Patient is a 79-year-old male with past medical history significant for ESRD on peritoneal dialysis, hypothyroidism, hypertension, hyperlipidemia, HFrEF, atrial fibrillation, CAD and depression/anxiety who presented to [facility] ED for evaluation of
nausea, vomiting and diarrhea. Patient with chronic diarrhea reports that it has been significantly worse in the last 2 days. He reports that diarrhea with bright red blood not mixed with stool started, he reports similar to hemorrhoidal bleed he
has had before. He states his last episode of emesis was early this morning and last episode of diarrhea was late yesterday evening. Patient denies any recent travel, fever, chills, cough, shortness of breath, chest pain, constipation or urinary
symptoms.
Medical History
Past Medical History
Past Medical History: Reports Other
Additional Past Medical History:
Left Occipital Stroke
Severe Left Carotid Stenosis
Coronary Artery Disease s/p CABG
Paroxysmal Atrial Fibrillation
Heart Failure with Recovered Ejection Fraction
ESRD on Peritoneal Dialysis
Essential Hypertension
Hyperlipidemia
Hypothyroidism
Anemia of Chronic Kidney Disease
Past Surgical History: Reports Other
Additional Past Surgical History:
CABG
PD Catheter Placement
Left TCAR (08/11/24)
Social History
Tobacco: Former Smoker (Quit 5 years ago. > 40 pack years total use.)
Alcohol: None
Living: With Family
Employment: Retired
Family History
Family History: Not pertinent
Allergies / Home Medications
Allergies reflects when Allergies were last updated in [facility].
Home Medications with original date entered in [facility]
Allergy/Medication List:
Allergies
Allergy/AdvReac Type Severity Reaction Status Date / Time
No Known Allergies Allergy Verified 10/28/24 19:28
Home Medications
amiodarone 200 mg tablet 200 mg PO DAILY Arrhythmia 07/28/24
atorvastatin 40 mg tablet 40 mg PO DAILY High Cholesterol 07/28/24
calcium carbonate 500 mg PO DAILY Gastrointestinal Issue 07/28/24
cyanocobalamin (vitamin B-12) 1,000 mcg tablet 1,000 mcg PO DAILY Supplement 07/28/24
levothyroxine 150 mcg tablet 150 mcg PO DAILY Thyroid 07/28/24
magnesium oxide 400 mg (241.3 mg magnesium) tablet 400 mg PO DAILY Supplement 07/28/24
vitamin B complex-vitamin C-folic acid 800 mcg chewable tablet (Dialyvite 800) 1 tab PO DAILY Supplement 07/28/24
apixaban 5 mg tablet (Eliquis) 2.5 mg PO BID Blood Clot Prevention/Tx 08/11/24
pantoprazole 40 mg tablet,delayed release 40 mg PO DAILY #30 tabs 08/13/24
aspirin 81 mg chewable tablet 81 mg PO DAILY Blood Clot Prevention/Tx 10/28/24
hydrocortisone acetate 25 mg rectal suppository 25 mg SD DAILYPRN PRN hemorrhoid 11/22/24
wheat dextrin 1 gram tablet (Benefiber (wheat dextrin)) 1 g PO BID Supplement 11/22/24
mirtazapine 15 mg tablet 15 mg PO DAILY Mental Health/Anxiety 12/09/24
aluminum hydrox-magnesium carb 95 mg-358 mg/15 mL oral suspension 15 ml PO DAILYPRN PRN gerd 03/21/25
hydralazine 10 mg tablet 5 mg PO TIDPRN PRN SBP > 180 03/21/25
melatonin 5 mg tablet 5 mg PO HS 03/21/25
midodrine 2.5 mg tablet 2.5 mg PO BIDPRN PRN low blood pressure 03/21/25
Review of Systems
-
History Source: Patient
Constitutional: Reports Weight Loss
Abdomen/GI: Reports Nausea, Vomiting, Diarrhea and Bloody Stools
Physical Exam
Vital Signs
Vital Signs
Temp Pulse Resp BP Pulse Ox
98.9 F 79 15 116/52 98
03/21/25 17:45 03/21/25 17:45 03/21/25 17:45 03/21/25 17:00 03/21/25 17:45
Physical Exam
General: Well Developed, No Apparent Distress, Comfortable, Conversant and Appears Chronically Ill
HEENT: NormoCephalic, Moist mucous membranes, Atraumatic, [place] Conjunctivae, Nose Appears Normal and Ears Appear Normal
Respiratory: Clear and Non Labored Respirations
Cardiac: S1/S2 and Regular Rhythm; No Murmur, Rub or Gallop
Breast: Deferred by me
GI: Soft, Non Tender, Non Distended and Normal Bowel Sounds; No Organomegaly
Rectal: Deferred by Provider
Genito-urinary: Deferred by me
Musculoskeletal: No Clubbing, No Cyanosis and No Edema
Skin: Warm and IV/Catheter Site
Neuro: Awake, Alert, AO x 3 and Nonfocal/grossly intact
Psych: Calm
Laboratory Results
-
03/21/25 12:35
03/21/25 12:35
Laboratory Results
Total Bilirubin 0.4 mg/dl (0.2-1.3) 03/21/25 12:35
AST 20 U/L (17-59) 03/21/25 12:35
ALT 26 U/L (0-50) 03/21/25 12:35
Alkaline Phosphatase 110 U/L (38-126) 03/21/25 12:35
Lipase 86 U/L (23-300) 03/21/25 12:35
Data Reviewed
-
CT Scan: Report Reviewed by me (Abd/Pel: There is mild wall thickening and mucosal hyperenhancement of the distal ileum which likely represents ileitis/enteritis. There is moderate volume abdominal pelvic ascites, however this may related to
peritoneal dialysis. There is a trace focus of pneumoperitoneum which is likely related t)
Lab Data: Labs Reviewed by me (WBC 23.0, Neut 87.3, BUN 29, Creat 8.8, eGFR 5.67)
Impression/Plan
-
IMPRESSION/PLAN:
#enteritis/ileitis infectious vs. ischemic
WBC 23.0, Neut 87.3
Abd/Pel CT: There is mild wall thickening and mucosal hyperenhancement of the distal ileum which likely represents ileitis/enteritis.
There is moderate volume abdominal pelvic ascites, however this may related to peritoneal dialysis. There is a trace focus of pneumoperitoneum which is likely related to the peritoneal dialysis.
Infrarenal abdominal aortic aneurysm measuring 3.3 cm. 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
Colonic diverticulosis.
- Admit to med/surg
- Consult GI
- Hold Eliquis
- check stool culture and c.diff
- clear liquid diet
#ESRD on Peritoneal Dialysis
BUN 8.8, Creat 29, eGFR 5.37
- consult nephrology for peritoneal dialysis
#hyponatremia
Na+ 135
- monitor BMP
#hypokalemia
K+ 4.1
- monitor BMP
- replete as indicated
#paroxysmal atrial fibrillation
- continue amiodarone and Eliquis
#HFrEF
- daily weights
- I & Os
#hypothyroidism
- continue levothyroxine
#anemia
hgb 13.4, hct 40.7
- stable
- monitor H/H
#GERD
- continue pantoprazole
#left Occipital Stroke
severe left carotid stenosis s/p TCAR
coronary artery disease s/p CABG
- continue aspirin
Code status: Full code
DVT prophylaxis: SCDs
--- NOTE | 2025-03-21 18:47 | W.PN.UPDATE ---
Update Note
Progress Note Update
This is an addendum to H&P written by Kathleen Tolentino on 03/21/2025. �Patient seen and examined independently with [employer].
79-year-old male past medical history of ESRD on peritoneal dialysis, orthostatic hypotension, paroxysmal atrial fibrillation on Eliquis, CAD status post CABG, chronic HFrEF, PAD, carotid artery stenosis, anemia of CKD, chronic hyponatremia,
hypothyroidism, GERD, prior CVA, GI bleeding, hemorrhoidal bleeding, presenting for nausea vomiting and diarrhea. �Started having nausea and vomiting without blood and diarrhea with bleeding separate from the stool attribute to hemorrhoidal
bleeding. �Has been having ongoing diarrhea for the past month. �No fevers or chills. �No abdominal pain. �No pain with eating food.
Labs show leukocytosis of 23.
CT abdomen pelvis shows mild wall thickening mucosal hyperenhancement of the distal ileum likely ileitis/enteritis. �There is moderate volume abdominal pelvic ascites. �Provine abdominal aortic aneurysm 3.3 cm, occlusion of the proximal superior
mesenteric artery with distal reconstitution.
Possibly infectious versus ischemic etiology of enteritis/ileitis. �Patient appears clinically nontoxic not consistent with acute or chronic mesenteric ischemia. �Rectal bleeding may also be from hemorrhoids.
IV fluids given. �Hold Eliquis. �Check stool culture and C. difficile. �Clear liquid diet. �GI consulted.
[2025-03-21] MEDS: FIBERCON 625 MG PO (21:56)
[2025-03-21] MEDS: MELATONIN PO (23:00)
--- NOTE | 2025-03-22 03:26 | PTCARENOTE ---
Received verbal report from PAUL Carson. Pt arrived to floor via wheelchair. Pt walked to the bed with a steady gait. aaox3. 98% on RA. Admission completed. Assessment and vitals as documented. Pt is currently dwelling, PD ongoing (see worklist). Pt
resting in bed with call molina in reach.
[2025-03-22 05:59] VITALS: BMI 19.7
[2025-03-22 06:33] LABS: Hemoglobin 11.7 g/dL (13.0-18.0); Mean Corp Hgb Conc. 32.5 g/dL (33.0-37.0); Mean Corpuscular Hgb 29.3 pg (27.0-31.0); Mean Corpuscular Volume 90.2 fL (80.0-94.0); Mean Platelet Volume 10.1 fL (7.4-10.4); Platelet Count 335 10^3/uL (130-400); Red Blood Cell Count 3.99 10^6/uL (4.70-6.10); Red Cell Dist. Width 16.8 % (11.5-14.5); White Blood Cell Count 17.1 10^3/uL (4.8-10.8)
[2025-03-22 06:56] LABS: Blood Urea Nitrogen 35 mg/dl (9-20); Calcium 8.5 mg/dl (8.4-10.2); Carbon Dioxide 27 mmol/L (22-30); Chloride 97 mmol/L (98-107); Estimated Creatinine Clearance 5 ml/min; Glucose 95 mg/dl (70-99); Potassium 4.5 mmol/L (3.5-5.1); Sodium 132 mmol/L (135-145); eGFR 5.37
[2025-03-22] MEDS: SYNTHROID 150 MCG PO (07:22)
--- NOTE | 2025-03-22 08:48 | CON.GI ---
Addendum entered and electronically signed by Jimenez Mejia MD 03/22/25 14:38:
The patient was seen and examined by me independently in collaboration with the nurse practitioner.
Past medical history/social history/medications/allergies/family history reviewed.
Lab data and imaging data reviewed.
79-year-old male past medical history as below on Eliquis for A-fib, peritoneal dialysis, stroke with left carotid stenosis, heart failure, with recent colonoscopy x2 per notes [address] [facility], flex sig November [address] Mcgowan here with
hemorrhoids presenting with bloody diarrhea for the last few days with nausea and vomiting. Found to have leukocytosis to 23,000, hemoglobin 13.4, repeat 11.[address] with thickening and enhancement in the distal ileum consistent with ileitis.
Moderate amount of ascites.
Most likely given the leukocytosis, nausea and vomiting, and CT findings with bloody diarrhea this represents infectious etiology. Recommend stool studies, trend hemoglobin, clear liquid diet. If nausea and vomiting and diarrhea remain improved
tomorrow, will advance diet to regular. Hold Eliquis for now. He has had multiple colonoscopies and a flex sig in the last year.
Addendum entered and electronically signed by LUZ MARIA Kaye 03/22/25 10:04:
reviewed with renal can go to regular diet when advance -- renal will also sent off peritoneal fluid studies
Original Note:
Consultation
-
Date/Time Consultation Requested: 03/21/252029
Date/Time Consultation Performed: 03/22/25 0850
Requesting Provider: LUZ MARIA Posadas
Performing Provider: LUZ MARIA Florentino, joyce Mejia MD
Reason for Consultation: enteritis
Medical History
Chief Complaint / HPI
Chief Complaint: nausea, vomiting and diarrhea
History of Present Illness:
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
of chronic disease, A-fib on Eliquis, colon polyp with onset of nausea/vomiting and diarrhea. Pt with multiple recurrent admission since last July. He was seen by GI in October after fall with noted rectal bleeding and initially pt declined
colonoscopy with plan for OP follow up with [facility] but continued bleeding and flex completed with hemorrhoids. he has had further admissions with syncope and orthostasis with recent HD cath placement then removal as needed for SNF stay. On
admission noted with WBC 23,000, hbg 13.4 then 11. creat 8.8, Na [address] notable for thickening and enhancement in distal ileum with ileitis/enteritis. moderate volume abdominal/pelvic ascites related to PD, trace
pneumoperitoneum with PD. 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 Rectal in ER with dark stool with right red blood. In review with patient he admits to sudden onset of symptoms but improvement
since admission. He admits to vomiting non bloody emesis mostly liquid. He also admits to some wt loss and eating less at recent SNF stay. He denies dysphagia, GERD, abdominal pain, constipation, or rectal bleeding. Hx prior EGD and colonoscopy
with [facility] with most recent colon in October and December 2023 with polyp removal.
Past Medical History
Past Medical History: CHF, Psychiatric (depression/anxiety) and Other (Left occipital stroke with severe left carotid stenosis, CAD, hypertension, hyperlipidemia, hypothyroidism, end-stage renal failure on peritoneal dialysis, anemia of chronic
disease, A-fib on Eliquis Colon polyp)
Past Surgical History: Other (Dialysis catheter, hemorrhoidectomy, colonoscopy with polypectomy x 2 (2023), left carotid angioplasty, CABG)
Social History
Tobacco: Former Smoker
Alcohol: None
Drug: None
Living: With Family (daughter )
Employment: Retired
Family History
Family History: Other (2 paternal uncles with colon cancer, 1 paternal aunt with gastric cancer.)
Allergies / Home Medications
Allergy/AdvReac Type Severity Reaction Status Date / Time
No Known Allergies Allergy Verified 10/28/24 19:28
�Medication �Instructions �Recorded
amiodarone 200 mg tablet 200 mg PO DAILY Arrhythmia 07/28/24
atorvastatin 40 mg tablet 40 mg PO DAILY High Cholesterol 07/28/24
calcium carbonate 500 mg PO DAILY Gastrointestinal 07/28/24
Issue
cyanocobalamin (vitamin B-12) 1,000 mcg PO DAILY Supplement 07/28/24
1,000 mcg tablet
levothyroxine 150 mcg tablet 150 mcg PO DAILY Thyroid 07/28/24
magnesium oxide 400 mg (241.3 mg 400 mg PO DAILY Supplement 07/28/24
magnesium) tablet
vitamin B complex-vitamin C-folic 1 tab PO DAILY Supplement 07/28/24
acid 800 mcg chewable tablet
(Dialyvite 800)
apixaban 5 mg tablet (Eliquis) 2.5 mg PO BID Blood Clot 08/11/24
Prevention/Tx
pantoprazole 40 mg tablet,delayed 40 mg PO DAILY #30 tabs 08/13/24
release
aspirin 81 mg chewable tablet 81 mg PO DAILY Blood Clot 10/28/24
Prevention/Tx
hydrocortisone acetate 25 mg 25 mg [place] DAILYPRN PRN hemorrhoid 11/22/24
rectal suppository
wheat dextrin 1 gram tablet 1 g PO BID Supplement 11/22/24
(Benefiber (wheat dextrin))
mirtazapine 15 mg tablet 15 mg PO DAILY Mental 12/09/24
Health/Anxiety
aluminum hydrox-magnesium carb 95 15 ml PO DAILYPRN PRN gerd 03/21/25
mg-358 mg/15 mL oral suspension
hydralazine 10 mg tablet 5 mg PO TIDPRN PRN SBP > 180 03/21/25
melatonin 5 mg tablet 5 mg PO HS 03/21/25
midodrine 2.5 mg tablet 2.5 mg PO BIDPRN PRN low blood 03/21/25
pressure
Review of Systems
-
History Source: Patient
Constitutional: Reports Weight Loss
EENT: Reports No Symptoms
Respiratory: Reports No Symptoms
Cardiac: Reports No Symptoms
Abdomen/GI: Reports Nausea, Vomiting and Diarrhea
: Reports No Symptoms
Musculoskeletal: Reports No Symptoms
Skin: Reports No Symptoms
Neurological: Reports No Symptoms
Endocrine: Reports No Symptoms
Hematologic/Lymphatic: Reports Bleeding
Vital Signs
Temp Pulse Resp BP Pulse Ox
97.0 F 82 18 125/87 96
03/22/25 03:50 03/21/25 20:29 03/21/25 20:29 03/21/25 20:29 03/22/25 04:20
Physical Exam
Exam
General: Well Developed, Well Nourished and No Apparent Distress
HEENT: Normocephalic and Anicteric
Respiratory: Clear
Cardiac: Regular Rhythm
GI: Soft, Non Tender, Non Distended and Other (PD cath with intact dressing)
Rectal: Other ( Rectal in ER with dark stool with right red blood.)
Musculoskeletal: No Clubbing and No Cyanosis
Skin: Warm
Neuro: Awake, Alert and AO x 3
Psych: Calm
Results
WBC 17.1 10^3/uL (4.8-10.8) H 03/22/25 06:14
Hgb 11.7 g/dL (13.0-18.0) L 03/22/25 06:14
Hct 36.0 % (39.0-52.0) L 03/22/25 06:14
MCV 90.2 fL (80.0-94.0) 03/22/25 06:14
Plt Count 335 10^3/uL (130-400) 03/22/25 06:14
Absolute Neuts (auto) 20.1 10^3/uL (1.4-6.5) H 03/21/25 12:35
Sodium 132 mmol/L (135-145) L 03/22/25 06:14
Potassium 4.5 mmol/L (3.5-5.1) 03/22/25 06:14
Chloride 97 mmol/L (98-107) L 03/22/25 06:14
Carbon Dioxide 27 mmol/L (22-30) 03/22/25 06:14
BUN 35 mg/dl (9-20) H 03/22/25 06:14
Creatinine 9.2 mg/dL (0.7-1.3) H* 03/22/25 06:14
Calcium 8.5 mg/dl (8.4-10.2) 03/22/25 06:14
Total Bilirubin 0.4 mg/dl (0.2-1.3) 03/21/25 12:35
AST 20 U/L (17-59) 03/21/25 12:35
ALT 26 U/L (0-50) 03/21/25 12:35
Alkaline Phosphatase 110 U/L (38-126) 03/21/25 12:35
Lipase 86 U/L (23-300) 03/21/25 12:35
Diagnostic Image Results:
03/21/25 CT A/p with IV only
There is mild wall thickening and mucosal hyperenhancement of the distal ileum which likely represents ileitis/enteritis.
There is moderate volume abdominal pelvic ascites, however this may related to peritoneal dialysis. There is a trace focus of pneumoperitoneum which is likely related to the peritoneal dialysis.
Infrarenal abdominal aortic aneurysm measuring 3.3 cm. 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
Colonic diverticulosis.
Prior GI Procedures:
EGD: [facility] in past
Colonoscopy:
11/09/24 [facility], flex sig - Internal hemorrhoids.
- No specimens collected.
Assessment / Plan
-
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
of chronic disease, A-fib on Eliquis, colon polyp with onset of nausea/vomiting and diarrhea. Pt with multiple recurrent admission since last July. He was seen by GI in October after fall with noted rectal bleeding and initially pt declined
colonoscopy with plan for OP follow up with [facility] but continued bleeding and flex completed with hemorrhoids. he has had further admissions with syncope and orthostasis with recent HD cath placement then removal as needed for SNF stay. On
admission noted with WBC 23,000, hbg 13.4 then 11./7 creat 8.8, Na [address]'s[address] notable for thickening and enhancement in distal ileum with ileitis/enteritis. moderate volume abdominal/pelvic ascites related to PD, trace
pneumoperitoneum with PD. 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 Rectal in ER with dark stool with right red blood. In review with patient he admits to sudden onset of symptoms but
improvement since admission. He admits to vomiting non bloody emesis mostly liquid. He also admits to some wt loss and eating less at recent SNF stay.
-nausea/vomiting/diarrhea
-CT with thickening and enhancement in distal ileum with ileitis/enteritis and also noted proximal SMA occlusion with distal reconstitution
-chronic PD with noted ascites/ trace pneumoperitoneum on CT
- Rectal in ER with dark stool with right red blood.
-leukocytosis
-prior admissions with orthostasis
other med problems:
-hx left occipital stroke with severe left carotid stenosis
- GI bleeding- hemorrhoids 11/2024
-CAD
- hypertension
- hyperlipidemia
-hypothyroidism
- RYfNB-tul-ffkty renal failure on peritoneal dialysis
anemia of chronic disease
-A-fib on Eliquis
- colon polyp
PLAN:
etiology of enteritis/ileitis related to infectious, ischemic vs other
agree with stool studies -- add norovirus, Giardia and crypto
monitor hbg and for recurrent bleeding - last stool 03/21 with burgundy color
ok for clear diet if tolerating and bleeding improved advance per renal as pt states he does not follow renal restrictions
maintain adequate perfusion
Eliquis hold
if cont bleeding consider colonoscopy -- last flex 10/2024 and colon in 2023 x 2 with polyps
Pt has followed with [facility] in past
-
-
Thank you for consultation and allowing me to participate in the patient's care. Please call the risk consulting treasury director GI physician during the after hours with any questions or concerns.
[2025-03-22 09:33] VITALS: BP 117/72
[2025-03-22] MEDS: LOW STRENGTH ASPIRIN 81 MG PO (09:38)
[2025-03-22] MEDS: TUMS CHEWABLE TABLET 200 MG PO (09:38)
[2025-03-22] MEDS: MAG-TAB SR 84 MG PO (09:38)
[2025-03-22] MEDS: LIPITOR 40 MG PO (09:38)
[2025-03-22] MEDS: PROTONIX 40 MG PO (09:38)
[2025-03-22] MEDS: NEPHROCAP 1 CAPSULE PO (09:38)
[2025-03-22] MEDS: FIBERCON 625 MG PO ×2 (09:38→20:12)
[2025-03-22] MEDS: VITAMIN B-12 1000 MCG PO (09:39)
[2025-03-22] MEDS: REMERON 15 MG PO (09:39)
[2025-03-22] MEDS: PACERONE 200 MG PO (09:39)
--- NOTE | 2025-03-22 10:05 | W.CON.NEPH ---
Consultation
-
Date/Time Consultation Requested: 03/21/252026
Date/Time Consultation Performed: 03/22/25 0945
Requesting Provider: Angie Jaquez
Performing Provider: Aaliyah Gaspar
Reason for Consultation: ESRD on PD
Medical History
-
Chief Complaint: n/v/d
History of Present Illness:
79-year-old male with CAD status post CABG, paroxysmal atrial fibrillation(maintained on amiodarone and anticoagulated with Eliquis), HFrEF, ESRD on peritoneal dialysis, hypertension, hypercholesteremia, hypothyroidism , orthostatic hypotension, GIB
from hemorrhoids who presents to ED for evaluation of n/v/d. He is well known to us from previous admits for syncope, orthostatic hypotension and GIB. Last admit he was discharged to rehab with tunneled catheter and HD, now catheter removed in
February and he is maintain on PD with private nurses help in his apartment. For 5days he started with nausea and vomiting and acute on chronic diarrhea last 2days. He also noticed blood in stools which he claims from hemorrhoids. He had dizziness on
admit now improved. Offers no CP or sob. no abd pain. He hAS no sick contacts. No fever or chills. He makes minimal urine only. CT in ER shows thickening and enhancement in distal ileum with ileitis/enteritis. moderate volume abdominal/pelvic
ascites related to PD, trace pneumoperitoneum with PD. 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 WBC elevated 23k.
Past Medical History
End-stage renal disease on peritoneal dialysis
Coronary artery disease with history of CABG
Paroxysmal atrial fibrillation on chronic anticoagulation
HFpEF
orthostatic hypotension
Hypothyroidism
Hyperphosphatemia
Anemia
Dyslipidemia
Left occipital stroke with severe left carotid artery stenosis
Social History
Tobacco: Non-Smoker
Alcohol: None
Drug: None
Family History
no ckd
Family History: Not Pertinent
Allergies / Home Medications
Allergy/AdvReac Type Severity Reaction Status Date / Time
No Known Allergies Allergy Verified 10/28/24 19:28
�Medication �Instructions �Recorded �Confirmed �Type
amiodarone 200 mg tablet 200 mg PO DAILY Arrhythmia 07/28/24 03/21/25 History
atorvastatin 40 mg tablet 40 mg PO DAILY High Cholesterol 07/28/24 03/21/25 History
calcium carbonate 500 mg PO DAILY Gastrointestinal 07/28/24 03/21/25 History
Issue
cyanocobalamin (vitamin B-12) 1,000 mcg PO DAILY Supplement 07/28/24 03/21/25 History
1,000 mcg tablet
levothyroxine 150 mcg tablet 150 mcg PO DAILY Thyroid 07/28/24 03/21/25 History
magnesium oxide 400 mg (241.3 mg 400 mg PO DAILY Supplement 07/28/24 03/21/25 History
magnesium) tablet
vitamin B complex-vitamin C-folic 1 tab PO DAILY Supplement 07/28/24 03/21/25 History
acid 800 mcg chewable tablet
(Dialyvite 800)
apixaban 5 mg tablet (Eliquis) 2.5 mg PO BID Blood Clot 08/11/24 03/21/25 History
Prevention/Tx
pantoprazole 40 mg tablet,delayed 40 mg PO DAILY #30 tabs 08/13/24 03/21/25 Rx
release
aspirin 81 mg chewable tablet 81 mg PO DAILY Blood Clot 10/28/24 03/21/25 History
Prevention/Tx
hydrocortisone acetate 25 mg 25 mg [place] DAILYPRN PRN hemorrhoid 11/22/24 03/21/25 History
rectal suppository
wheat dextrin 1 gram tablet 1 g PO BID Supplement 11/22/24 03/21/25 History
(Benefiber (wheat dextrin))
mirtazapine 15 mg tablet 15 mg PO DAILY Mental 12/09/24 03/21/25 History
Health/Anxiety
aluminum hydrox-magnesium carb 95 15 ml PO DAILYPRN PRN gerd 03/21/25 03/21/25 History
mg-358 mg/15 mL oral suspension
hydralazine 10 mg tablet 5 mg PO TIDPRN PRN SBP > 180 03/21/25 03/21/25 History
melatonin 5 mg tablet 5 mg PO HS 03/21/25 03/21/25 History
midodrine 2.5 mg tablet 2.5 mg PO BIDPRN PRN low blood 03/21/25 03/21/25 History
pressure
Review of Systems
-
All other systems: Negative unless noted
Physical Exam
Vital Signs
Vital Signs
Temp Pulse Resp BP Pulse Ox
97.0 F 69 14 117/72 99
03/22/25 03:50 03/22/25 09:33 03/22/25 09:33 03/22/25 09:33 03/22/25 09:33
Lab Results
WBC 17.1 10^3/uL (4.8-10.8) H 03/22/25 06:14
RBC 3.99 10^6/uL (4.70-6.10) L 03/22/25 06:14
Hgb 11.7 g/dL (13.0-18.0) L 03/22/25 06:14
Hct 36.0 % (39.0-52.0) L 03/22/25 06:14
Plt Count 335 10^3/uL (130-400) 03/22/25 06:14
Sodium 132 mmol/L (135-145) L 03/22/25 06:14
Potassium 4.5 mmol/L (3.5-5.1) 03/22/25 06:14
Chloride 97 mmol/L (98-107) L 03/22/25 06:14
Carbon Dioxide 27 mmol/L (22-30) 03/22/25 06:14
BUN 35 mg/dl (9-20) H 03/22/25 06:14
Creatinine 9.2 mg/dL (0.7-1.3) H* 03/22/25 06:14
eGFR 5.37 03/22/25 06:14
Glucose 95 mg/dl (70-99) 03/22/25 06:14
Calcium 8.5 mg/dl (8.4-10.2) 03/22/25 06:14
Albumin 3.3 g/dl (3.5-5.0) L 03/21/25 12:35
Physical Exam
General: Awake, Alert, Oriented, AOx3, No Distress and Nontoxic
HEENT: EOMI, Anicteric, Facial Symmetry and No JVD
Respiratory: Clear, Normal Excursion and Nonlabored Respirations
Cardiac: S1/S2 and Regular Rate/Rhythm
Breast: Deferred by me
Abdomen: Soft, Nontender and Nondistended
Musculoskeletal: No Cyanosis and No Edema
Skin: No Rash
Neuro: Nonfocal/Grossly Intact
Psych: Mood/afflect pleasant, Insight/judgement good and Appropriate
Vascular Access: Other (PD catheter)
Data Reviewed
-
Radiology: Report Reviewed by me and Discussed with Patient
Labs: Labs Reviewed by me, Discussed with Physician and Discussed with Patient
Assessment/Plan
-
Impression:
N/V/D_enteritis/ileitis
End-stage renal disease on peritoneal dialysis
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
Left carotid stenosis
Hypertension
Paroxysmal atrial fibrillation
Hyperphosphatemia
Anemia
History of CABG
h/o bilat CEA at [facility]
TCAR 08/11/2024
Plan:
A/w GI symp, GI consulted , reviewed CT abd results
started back PD last night 1.5%, Dwell 4hr, manual exchange
he typically does not need renal diet
given enteritis, leucocytosis check PD fluid cell count and cx
cont midodrine 2.5mg BID prn dosing
permissive HTN with h/o orthostatic hypotension
d/w pt and nursing
[2025-03-22 10:32] VITALS: BMI 19.7
--- NOTE | 2025-03-22 16:20 | W.PN.HOSP.TC ---
Today's Communication/Plan
-
see outlined plan below
Assessment / Plan
Assessment / Plan
Assessment:
Ileitis with nausea/vomiting/diarrhea which is bloody
- follow stool studies
- GI following
- continue IVF
- diet: clears
- monitor Hb
ESRD on PD
- Nephrology following
- follow ascites fluid/culture
prior admissions with orthostasis
hx left occipital stroke with severe left carotid stenosis
GI bleeding- hemorrhoids 11/2024
CAD
- continue ASA/Statin
essential hypertension
hyperlipidemia
hypothyroidism
- continue Levothyroxine
[id number] renal failure on peritoneal dialysis
anemia of chronic disease
A. fib on Eliquis
- continue Amio
- holding Eliquis
colon polyp
DVT ppx: SCDs
Code: Full
Anticipated Discharge: 24 - 48 hours
Subjective/Interval History
-
Date of Service: March 22, 2025
abd pain improving
Objective Data
-
Labs:
Laboratory Results
03/22/25
06:14
WBC 17.1 H
Hgb 11.7 L
Hct 36.0 L
Plt Count 335
Sodium 132 L
Potassium 4.5
Chloride 97 L
Carbon Dioxide 27
BUN 35 H
Creatinine 9.2 H*
Glucose 95
Calcium 8.5
Vital Signs:
Vital Signs
Temp Pulse Resp BP Pulse Ox
97.6 F 69 14 117/72 99
03/22/25 07:05 03/22/25 09:33 03/22/25 09:33 03/22/25 09:33 03/22/25 09:33
I&O
03/21/25 03/22/25 03/23/25
06:59 06:59 06:59
Intake Total 400 / 400
Balance 400 / 400
Physical Exam
-
General: No Apparent Distress
HEENT: Normocephalic and Atraumatic
Respiratory: Negative Wheezes
Cardiac: Regular Rhythm and S1/S2
GI: Soft and Nontender
Musculoskeletal: No Edema
Neuro: AO x 3
Psych: Calm
Data Reviewed
-
Total Time Spent with Patient (in minutes): 42
Labs: Labs Reviewed by me
--- NOTE | 2025-03-22 16:36 | CM ---
Patient with Hx ESRD on PD with Dx Ileitis. Room air. PT/OT Patty pending.
Met with patient who resides with his daughter in 2 story [facility], no steps to enter, 1st floor set up.
PLOF: assisted with ADLs by caregivers and ambulates with his walker.
DME - SPC, walker, wheelchair, PD supplies
Current with [facility]
SNF - [facility]
Prior [facility] acute rehab
PCP - Iliana Hoang
Pharmacy- [facility]
Plan follow up after seen by PT/OT.
[2025-03-22 18:39] LABS: Body Fluid Polymorphonuclear 33.3 %
[2025-03-22 18:40] LABS: Body Fluid Mononuclear 66.7 %
[2025-03-22 19:14] LABS: Body Fluid Second Tech US
[2025-03-22] MEDS: MELATONIN 5 MG PO (20:12)
--- NOTE | 2025-03-22 20:27 | PTCARENOTE ---
Assumed care of pt from daniel MILLER. Pt aaox3. 98% on RA. Pt currently dwelling. PD ongoing (see worklist). Pt walked to the bathroom with a steady gait and standby assistance. SHARMAINE medications administered (see MAR). Pt is now resting in bed with
bed alarm on and call molina in reach.
[2025-03-22 23:54] VITALS: BP 130/53
[2025-03-23] MEDS: SYNTHROID 150 MCG PO (04:59)
[2025-03-23 05:31] LABS: Hematocrit 31.1 % (39.0-52.0); Hemoglobin 10.4 g/dL (13.0-18.0); Mean Corp Hgb Conc. 33.4 g/dL (33.0-37.0); Mean Corpuscular Hgb 30.1 pg (27.0-31.0); Mean Corpuscular Volume 89.9 fL (80.0-94.0); Platelet Count 281 10^3/uL (130-400); Red Blood Cell Count 3.46 10^6/uL (4.70-6.10); Red Cell Dist. Width 16.5 % (11.5-14.5); White Blood Cell Count 11.9 10^3/uL (4.8-10.8)
[2025-03-23 05:36] VITALS: BMI 19.5
--- NOTE | 2025-03-23 05:36 | DOWNTIME ---
Addendum entered and electronically signed by Fareed Tobar RN 03/23/25 14:22:
Correction: Downtime was 03/23/2025 from 0100 to 03/23/2025 at 0415
Original Note:
There was a DX Urgent Care Client Insect Control Inspector Downtime on 03/22/2025 from 0100 to 03/23/2025 at 0415. Downtime documentation of patient's care, including medication administrations, has been reconciled in the electronic record per guidelines. Refer to the
patient's paper chart under the miscellaneous tab to see printed paper medication records and downtime forms.
[2025-03-23 06:05] LABS: Blood Urea Nitrogen 33 mg/dl (9-20); Calcium 7.8 mg/dl (8.4-10.2); Carbon Dioxide 24 mmol/L (22-30); Chloride 96 mmol/L (98-107); Estimated Creatinine Clearance 6 ml/min; Glucose 84 mg/dl (70-99); Potassium 3.6 mmol/L (3.5-5.1); Sodium 128 mmol/L (135-145); eGFR 6.76
[2025-03-23 08:34] VITALS: BP 118/49
[2025-03-23] MEDS: PROTONIX 40 MG PO (08:37)
[2025-03-23] MEDS: REMERON 15 MG PO (08:37)
[2025-03-23] MEDS: FIBERCON 625 MG PO ×2 (08:37→22:05)
[2025-03-23] MEDS: VITAMIN B-12 1000 MCG PO (08:38)
[2025-03-23] MEDS: LIPITOR 40 MG PO (08:38)
[2025-03-23] MEDS: PACERONE 200 MG PO (08:38)
[2025-03-23] MEDS: MAG-TAB SR 84 MG PO (08:38)
[2025-03-23] MEDS: LOW STRENGTH ASPIRIN 81 MG PO (08:38)
[2025-03-23] MEDS: NEPHROCAP 1 CAPSULE PO (08:38)
[2025-03-23] MEDS: TUMS CHEWABLE TABLET 200 MG PO (08:38)
--- NOTE | 2025-03-23 10:10 | W.PN.NEPH.PH ---
Today's Communication / Plan
-
Maintain current PD orders
Fluid restriction placed for sodium of 128
Assessment/Plan
-
Impression:
N/V/D_enteritis/ileitis
End-stage renal disease on peritoneal dialysis
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
Left carotid stenosis
Hypertension
Paroxysmal atrial fibrillation
Hyperphosphatemia
Anemia
History of CABG
h/o bilat CEA at [facility]
TCAR 08/11/2024
Plan:
A/w GI symp, GI consulted , reviewed CT abd results
PD 1.5%, Dwell 4hr, manual exchange
Flowsheets reviewed no significant UF essentially even
PD orders provided
Fluid restriction of 48 ounces placed given hyponatremia
he typically does not need renal diet
given enteritis, leucocytosis check PD fluid cell count and cx: pending ,no wbc on grma stain, no organisms
cont midodrine 2.5mg BID prn dosing
permissive HTN with h/o orthostatic hypotension
d/w pt and nursing
-
-
Date of Service: March 23, 2025
CC / HPI / ROS
-
Chief Complaint:
ESRD on PD
History of Present Illness:
PD infusing
Hemodynamically stable
Review of Systems:
No reported diarrhea abdominal pain or vomiting at this time no fevers
weights down
Labs
-
Labs:
WBC 11.9 10^3/uL (4.8-10.8) H 03/23/25 05:12
RBC 3.46 10^6/uL (4.70-6.10) L 03/23/25 05:12
Hgb 10.4 g/dL (13.0-18.0) L 03/23/25 05:12
Hct 31.1 % (39.0-52.0) L 03/23/25 05:12
Plt Count 281 10^3/uL (130-400) 03/23/25 05:12
Sodium 128 mmol/L (135-145) L 03/23/25 05:12
Potassium 3.6 mmol/L (3.5-5.1) 03/23/25 05:12
Chloride 96 mmol/L (98-107) L 03/23/25 05:12
Carbon Dioxide 24 mmol/L (22-30) 03/23/25 05:12
BUN 33 mg/dl (9-20) H 03/23/25 05:12
Creatinine 7.6 mg/dL (0.7-1.3) H* 03/23/25 05:12
eGFR 6.76 03/23/25 05:12
Glucose 84 mg/dl (70-99) 03/23/25 05:12
Calcium 7.8 mg/dl (8.4-10.2) L 03/23/25 05:12
Albumin 3.3 g/dl (3.5-5.0) L 03/21/25 12:35
Physical Exam
-
Vital Signs:
Vital Signs
Temp Pulse Resp BP Pulse Ox
97.4 F 72 16 118/49 99
03/23/25 05:26 03/23/25 08:34 03/23/25 08:34 03/23/25 08:34 03/23/25 08:49
Cardiovascular:: Regular rate and rhythm
Respiratory:: Bilateral: CTA
Lung Excursion:: Normal
Abdomen:: Nontender and Soft
Bowel Sounds:: Decreased
Extremity Edema:: None: Bilateral:
Gavin Catheter: No
[2025-03-23 10:40] VITALS: BP 101/63; BP 134/65; PULSE 70; O2SAT 97
[2025-03-23 10:44] VITALS: BP 101/63; BP 134/65; PULSE 70; O2SAT 97
--- NOTE | 2025-03-23 12:41 | W.PN.GI.CBS2 ---
Addendum entered and electronically signed by Jimenez Mejia MD 03/23/25 15:07:
I saw and examined the patient.
The [employer] VAT TENDER or PA's note was reviewed and I agree with the note.
Comment: 79-year-old male past medical history as below on Eliquis for A-fib, peritoneal dialysis, stroke with left carotid stenosis, heart failure, with recent colonoscopy x2 per notes 2023 at [facility], flex sig November [address] Mcgowan here
with hemorrhoids presenting with bloody diarrhea for the last few days with nausea and vomiting. Found to have leukocytosis to 23,000, hemoglobin 13.4, repeat 11.[address] with thickening and enhancement in the distal ileum consistent with ileitis.
Moderate amount of ascites.
Most likely given the leukocytosis, nausea and vomiting, and CT findings with bloody diarrhea this represents infectious etiology. Recommend stool studies (pending), trend hemoglobin, continue low residue. OK to resume Eliquis in AM if no further
bleeding.
OK dc GI POV tmwr if no further diarrhea, blood in stool, n/v.
Of note had spoilt milk today (had chunks in it) so if diarrhea recurs will be uncertain if from primary infectious etiology or milk.
No need for antibiotics d/w hospitalist.
GI will sign off please call with ?s.
Original Note:
Today's Communication / Plan
-
etiology of enteritis/ileitis related to infectious, ischemic vs other
stool studies being sent now
advance to low residue diet with fluid restriction
peritoneal fluid with WBC's 3, PMN 33.3, hbg stable 10.4
stool now brown
maintain adequate perfusion
Eliquis hold- resume if tolerating diet if am
if cont bleeding consider colonoscopy -- last flex 10/2024 and colon in 2023 x 2 with polyps
OP follow up with with [facility] as has seen in past
Assessment / Plan
-
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
of chronic disease, A-fib on Eliquis, colon polyp with onset of nausea/vomiting and diarrhea. Pt with multiple recurrent admission since last July. He was seen by GI in October after fall with noted rectal bleeding and initially pt declined
colonoscopy with plan for OP follow up with [facility] but continued bleeding and flex completed with hemorrhoids. he has had further admissions with syncope and orthostasis with recent HD cath placement then removal as needed for SNF stay. On
admission noted with WBC 23,000, hbg 13.4 then 11./7 creat 8.8, Na [address] notable for thickening and enhancement in distal ileum with ileitis/enteritis. moderate volume abdominal/pelvic ascites related to PD, trace
pneumoperitoneum with PD. 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 Rectal in ER with dark stool with right red blood. In review with patient he admits to sudden onset of symptoms but
improvement since admission. He admits to vomiting non bloody emesis mostly liquid. He also admits to some wt loss and eating less at recent SNF stay.
-nausea/vomiting/diarrhea
-CT with thickening and enhancement in distal ileum with ileitis/enteritis and also noted proximal SMA occlusion with distal reconstitution
-chronic PD with noted ascites/ trace pneumoperitoneum on CT
- Rectal in ER with dark stool with right red blood.
-leukocytosis
-prior admissions with orthostasis
other med problems:
-hx left occipital stroke with severe left carotid stenosis
- GI bleeding- hemorrhoids 11/2024
-CAD
- hypertension
- hyperlipidemia
-hypothyroidism
- [id number] renal failure on peritoneal dialysis
anemia of chronic disease
-A-fib on Eliquis
- colon polyp
PLAN:
etiology of enteritis/ileitis related to infectious, ischemic vs other
stool studies being sent now
advance to low residue diet with fluid restriction
peritoneal fluid with WBC's 3, PMN 33.3, hbg stable 10.4
stool now brown
maintain adequate perfusion
Eliquis hold- resume if tolerating diet if am
if cont bleeding consider colonoscopy -- last flex 10/2024 and colon in 2023 x 2 with polyps
OP follow up with with [facility] as has seen in past
.
Subjective
Subjective
Date of Service: March 23, 2025
clear diet 03/22 burgundy stool and now brown stool with slight form feeling better
Objective
Data Reviewed
Laboratory Data:
Laboratory Results
03/23/25 05:12
03/23/25 05:12
Laboratory Results
Total Bilirubin 0.4 mg/dl (0.2-1.3) 03/21/25 12:35
AST 20 U/L (17-59) 03/21/25 12:35
ALT 26 U/L (0-50) 03/21/25 12:35
Alkaline Phosphatase 110 U/L (38-126) 03/21/25 12:35
Lipase 86 U/L (23-300) 03/21/25 12:35
Vital Signs and I&O:
Vital Signs
Temp Pulse Resp BP Pulse Ox
97.8 F 72 16 118/49 99
03/23/25 07:05 03/23/25 08:34 03/23/25 08:34 03/23/25 08:34 03/23/25 08:49
I&O
03/22/25 03/23/25 03/24/25
06:59 06:59 06:59
Intake Total 740 / 740 525 / 525
Balance 740 / 740 525 / 525
Physical Exam
Physical Exam
HEENT: Anicteric and Moist mucous membranes
Cardiology: Normal Sinus Rhythm
Pulmonary: Clear
GI: Soft, Distended (mild with hx peritoneal dialysis ), Non Tender and Other (PD cath intact )
Neuro: Non Focal
--- NOTE | 2025-03-23 13:32 | W.PN.HOSP.TC ---
Today's Communication/Plan
-
LRD + OFR
resume Eliquis in AM if stable
therapy evals
Assessment / Plan
Assessment / Plan
Assessment:
Ileitis with nausea/vomiting/diarrhea which is bloody
- follow stool studies
- GI following
- diet: LRD
- monitor Hb
ESRD on PD
- Nephrology following
- ascites fluid/culture; no growth
Hyponatremia
- on fluid restriction
prior admissions with orthostasis
hx left occipital stroke with severe left carotid stenosis
GI bleeding
- hemorrhoids 11/2024
CAD
- continue ASA/Statin
essential hypertension
hyperlipidemia
hypothyroidism
- continue Levothyroxine
[id number] renal failure on peritoneal dialysis
anemia of chronic disease
A. fib on Eliquis
- continue Amio
- holding Eliquis; resume in 24 hours
colon polyp
DVT ppx: SCDs
Code: Full
Anticipated Discharge: 24 - 48 hours
Subjective/Interval History
-
Date of Service: March 23, 2025
brown stool, more formed
tolerating LRD
Objective Data
-
Labs:
Laboratory Results
03/23/25
05:12
WBC 11.9 H
Hgb 10.4 L
Hct 31.1 L
Plt Count 281
Sodium 128 L
Potassium 3.6
Chloride 96 L
Carbon Dioxide 24
BUN 33 H
Creatinine 7.6 H*
Glucose 84
Calcium 7.8 L
Vital Signs:
Vital Signs
Temp Pulse Resp BP Pulse Ox
97.8 F 72 16 118/49 99
03/23/25 07:05 03/23/25 08:34 03/23/25 08:34 03/23/25 08:34 03/23/25 08:49
I&O
03/22/25 03/23/25 03/24/25
06:59 06:59 06:59
Intake Total 740 / 740 525 / 525
Balance 740 / 740 525 / 525
Physical Exam
-
General: No Apparent Distress
HEENT: Normocephalic and Atraumatic
Respiratory: Negative Wheezes
Cardiac: Regular Rhythm and S1/S2
GI: Soft
Genito-urinary: No Costovertebral Tender
Neuro: AO x 3
Psych: Calm
Data Reviewed
-
Total Time Spent with Patient (in minutes): 42
Labs: Labs Reviewed by me
[2025-03-23 15:11] VITALS: BP 120/56
--- NOTE | 2025-03-23 15:13 | PTCARENOTE ---
Patient worked with PT/OT today. OOB to chair form a few hours assist x1 and rolling walker. Patient had a BM and stool sample sent. Advanced to low residue diet and tolerated lunch. Denies any N/V. vs stable. PD as ordered.
--- NOTE | 2025-03-23 16:59 | CM ---
Patient with Hx ESRD on PD with Dx Ileitis. PT/OT recommend HH.
Referral placed to [facility] (fax [phone]) to resume service - patient accepted in [facility].
Spoke with Alivia, patient's daughter; she agrees with resumption of [facility] for SN/PT/OT.
Daughter relays he has [employer] private pay caregivers about 8hrs/week who help with his PD.
Daughter will provide transport home at d/c.
Plan home with resumption of [facility], with daughter.
[2025-03-23] MEDS: MELATONIN 5 MG PO (22:05)
[2025-03-23 23:32] VITALS: BP 130/64
--- NOTE | 2025-03-24 01:10 | PTCARENOTE ---
received patient at 2300. patient on PD. OOB to bathroom using walker with x1 assist. AAOx3 and on RA. Assessment and vital signs as charted. Call molina in reach.
[2025-03-24] MEDS: SYNTHROID 150 MCG PO (05:47)
[2025-03-24 06:12] LABS: Hemoglobin 10.6 g/dL (13.0-18.0); Mean Corp Hgb Conc. 33.1 g/dL (33.0-37.0); Mean Corpuscular Volume 90.7 fL (80.0-94.0); Mean Platelet Volume 9.9 fL (7.4-10.4); Platelet Count 259 10^3/uL (130-400); Red Blood Cell Count 3.53 10^6/uL (4.70-6.10); Red Cell Dist. Width 16.3 % (11.5-14.5); White Blood Cell Count 9.5 10^3/uL (4.8-10.8)
[2025-03-24 06:35] LABS: Blood Urea Nitrogen 34 mg/dl (9-20); Calcium 7.9 mg/dl (8.4-10.2); Carbon Dioxide 34 mmol/L (22-30); Chloride 94 mmol/L (98-107); Estimated Creatinine Clearance 7 ml/min; Glucose 79 mg/dl (70-99); Potassium 3.9 mmol/L (3.5-5.1); Sodium 130 mmol/L (135-145); eGFR 7.33
[2025-03-24 08:29] VITALS: BP 125/60
--- NOTE | 2025-03-24 09:03 | W.PN.NEPH.PH ---
Today's Communication / Plan
-
PD orders provided
No changes at this time
Assessment/Plan
-
Impression:
N/V/D_enteritis/ileitis
End-stage renal disease on peritoneal dialysis
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
Left carotid stenosis
Hypertension
Paroxysmal atrial fibrillation
Hyperphosphatemia
Anemia
History of CABG
h/o bilat CEA at [facility]AR 08/11/2024
Plan:
A/w GI symp, now feeling better and diet advanced
PD 1.5%, Dwell 4hr, manual exchange
Flowsheets reviewed no significant UF, essentially even ,weights stable
PD orders provided
Fluid restriction of 48 ounces placed given hyponatremia now up to 130
he typically does not need renal diet
given enteritis, leucocytosis check PD fluid cell count and cx: pending ,no wbc on grma stain, no organisms
continue midodrine 2.5mg BID prn dosing
permissive HTN with h/o orthostatic hypotension
d/w pt and nursing
-
-
Date of Service: March 24, 2025
CC / HPI / ROS
-
Chief Complaint:
ESRD on PD
History of Present Illness:
PD infusing
Hemodynamically stable
Review of Systems:
No reported diarrhea abdominal pain or vomiting at this time no fevers
weights stable
Labs
-
Labs:
WBC 9.5 10^3/uL (4.8-10.8) 03/24/25 05:53
RBC 3.53 10^6/uL (4.70-6.10) L 03/24/25 05:53
Hgb 10.6 g/dL (13.0-18.0) L 03/24/25 05:53
Hct 32.0 % (39.0-52.0) L 03/24/25 05:53
Plt Count 259 10^3/uL (130-400) 03/24/25 05:53
Sodium 130 mmol/L (135-145) L 03/24/25 05:53
Potassium 3.9 mmol/L (3.5-5.1) 03/24/25 05:53
Chloride 94 mmol/L (98-107) L 03/24/25 05:53
Carbon Dioxide 34 mmol/L (22-30) H 03/24/25 05:53
BUN 34 mg/dl (9-20) H 03/24/25 05:53
Creatinine 7.1 mg/dL (0.7-1.3) H* 03/24/25 05:53
eGFR 7.33 03/24/25 05:53
Glucose 79 mg/dl (70-99) 03/24/25 05:53
Calcium 7.9 mg/dl (8.4-10.2) L 03/24/25 05:53
Albumin 3.3 g/dl (3.5-5.0) L 03/21/25 12:35
Physical Exam
-
Vital Signs:
Vital Signs
Temp Pulse Resp BP Pulse Ox
97.4 F 81 16 125/60 98
03/24/25 08:29 03/24/25 08:29 03/24/25 08:29 03/24/25 08:29 03/24/25 08:29
Cardiovascular:: Regular rate and rhythm
Respiratory:: Bilateral: CTA
Lung Excursion:: Normal
Abdomen:: Nontender and Soft
Bowel Sounds:: Decreased
Extremity Edema:: None: Bilateral:
Gavin Catheter: No
[2025-03-24] MEDS: LOW STRENGTH ASPIRIN 81 MG PO (09:22)
[2025-03-24] MEDS: REMERON 15 MG PO (09:22)
[2025-03-24] MEDS: PROTONIX 40 MG PO (09:22)
[2025-03-24] MEDS: PACERONE 200 MG PO (09:23)
[2025-03-24] MEDS: FIBERCON 625 MG PO (09:23)
[2025-03-24] MEDS: LIPITOR 40 MG PO (09:23)
[2025-03-24] MEDS: NEPHROCAP 1 CAPSULE PO (09:23)
[2025-03-24] MEDS: TUMS CHEWABLE TABLET 200 MG PO (09:24)
[2025-03-24] MEDS: MAG-TAB SR 84 MG PO (09:24)
[2025-03-24] MEDS: VITAMIN B-12 1000 MCG PO (09:24)
--- NOTE | 2025-03-24 14:17 | W.PN.HOSP.TC ---
Today's Communication/Plan
-
dc to home/vN
Assessment / Plan
Assessment / Plan
Assessment:
Ileitis with nausea/vomiting/diarrhea which is bloody
- follow stool studies
- GI following
- diet: LRD
- monitor Hb
ESRD on PD
- Nephrology following
- ascites fluid/culture; no growth
Hyponatremia
- on fluid restriction; Na 130
prior admissions with orthostasis
hx left occipital stroke with severe left carotid stenosis
GI bleeding
- hemorrhoids 11/2024
CAD
- continue ASA/Statin
essential hypertension
hyperlipidemia
hypothyroidism
- continue Levothyroxine
[id number] renal failure on peritoneal dialysis
anemia of chronic disease
A. fib on Eliquis
- continue Amio
- resume Eliquis at discharge
colon polyp
DVT ppx: SCDs
Code: Full
More than 30 minutes spent in discharge including
Final examination of the patient
Summarizing hospital stay
Instructions for continuing care to all relevant caregivers
Preparation of discharge records, prescriptions, and referral forms
Total time spent (in minutes): 41
Anticipated Discharge: Today
Subjective/Interval History
-
Date of Service: March 24, 2025
tolerating diet
Objective Data
-
Labs:
Laboratory Results
03/24/25
05:53
WBC 9.5
Hgb 10.6 L
Hct 32.0 L
Plt Count 259
Sodium 130 L
Potassium 3.9
Chloride 94 L
Carbon Dioxide 34 H
BUN 34 H
Creatinine 7.1 H*
Glucose 79
Calcium 7.9 L
Vital Signs:
Vital Signs
Temp Pulse Resp BP Pulse Ox
97.4 F 81 16 125/60 98
03/24/25 08:29 03/24/25 08:29 03/24/25 08:29 03/24/25 08:29 03/24/25 09:21
I&O
03/23/25 03/24/25 03/25/25
06:59 06:59 06:59
Intake Total 740 / 740 825 / 825 325 / 325
Output Total 200 / 200
Balance 740 / 740 625 / 625 325 / 325
Physical Exam
-
General: No Apparent Distress
HEENT: Normocephalic and Atraumatic
Respiratory: Negative Wheezes
Cardiac: Regular Rhythm and S1/S2
GI: Soft
Genito-urinary: No Costovertebral Tender
Neuro: AO x 3
Psych: Calm
Data Reviewed
-
Total Time Spent with Patient (in minutes): 42
Labs: Labs Reviewed by me
--- NOTE | 2025-03-24 14:23 | W.DS.TRANS ---
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
-
Discharge Instructions:
Sleep Apnea Risk High
Discharge Diagnosis/Procedures enteritis
Diet Low Residue
Activity As tolerated
Bathing Restrictions None
Other Services VN
Instructions:
Stand-Alone Forms:
Changes to Home Medications: No
Discharge Medications:
DC Medications w/original date entered in [facility]
amiodarone 200 mg tablet 200 mg PO DAILY Arrhythmia 07/28/24
atorvastatin 40 mg tablet 40 mg PO DAILY High Cholesterol 07/28/24
calcium carbonate 500 mg PO DAILY Gastrointestinal Issue 07/28/24
cyanocobalamin (vitamin B-12) 1,000 mcg tablet 1,000 mcg PO DAILY Supplement 07/28/24
levothyroxine 150 mcg tablet 150 mcg PO DAILY Thyroid 07/28/24
magnesium oxide 400 mg (241.3 mg magnesium) tablet 400 mg PO DAILY Supplement 07/28/24
vitamin B complex-vitamin C-folic acid 800 mcg chewable tablet (Dialyvite 800) 1 tab PO DAILY Supplement 07/28/24
apixaban 5 mg tablet (Eliquis) 2.5 mg PO BID Blood Clot Prevention/Tx 08/11/24
pantoprazole 40 mg tablet,delayed release 40 mg PO DAILY #30 tabs 08/13/24
aspirin 81 mg chewable tablet 81 mg PO DAILY Blood Clot Prevention/Tx 10/28/24
hydrocortisone acetate 25 mg rectal suppository 25 mg W[place] DAILYPRN PRN hemorrhoid 11/22/24
wheat dextrin 1 gram tablet (Benefiber (wheat dextrin)) 1 g PO BID Supplement 11/22/24
mirtazapine 15 mg tablet 15 mg PO DAILY Mental Health/Anxiety 12/09/24
aluminum hydrox-magnesium carb 95 mg-358 mg/15 mL oral suspension 15 ml PO DAILYPRN PRN gerd 03/21/25
hydralazine 10 mg tablet 5 mg PO TIDPRN PRN SBP > 180 03/21/25
melatonin 5 mg tablet 5 mg PO HS Sleep 03/21/25
midodrine 2.5 mg tablet 2.5 mg PO BIDPRN PRN low blood pressure 03/21/25
Home Medication Changes
Pending Results: No
Total time spent discharging patient (in min): 41
--- NOTE | 2025-03-24 14:54 | PTCARENOTE ---
Patient tolerating low residue diet, no N/V. Patient will be discharged to home after next PD exchange.
[2025-03-24 15:14] VITALS: BP 143/65
--- NOTE | 2025-03-24 16:10 | CM ---
Patient with Hx ESRD on PD with Dx Ileitis. PT/OT recommend HH.
Met with patient who was preparing for discharge.
The patient says he feels ready for discharge home today. IMM completed.
He is aware [facility] will resume service.
His daughter will provide transport home.
[facility] (fax [phone]) notified of d/c today via [facility].
Plan home with resumption of [facility], with daughter.
== END 2025-03-24 17:21 | disposition home health service (06) | DRG 391 ==
LOC: IMU 07:56
PROVIDERS: Emergency Medicine; Nurse Practitioner Family; ADMITTING PHYSICIAN Hospitalist; ATTENDING PHYSICIAN Internal Medicine; CONSULT PHYSICIAN Internal Medicine; CONSULT PHYSICIAN Internal Medicine Gastroenterology; EMERGENCY PHYSICIAN Emergency Medicine; FAMILY PHYSICIAN Nurse Practitioner Family
DX: K52.9 Noninfective gastroenteritis and colitis, unspecified (principal); N18.6 End stage renal disease; R18.8 Other ascites; E87.1 Hypo-osmolality and hyponatremia; I50.22 Chronic systolic (congestive) heart failure; I13.2 Hypertensive heart and chronic kidney disease with heart failure and with stage 5 chronic kidney disease, or end stage renal disease; I71.43 Infrarenal abdominal aortic aneurysm, without rupture; E87.6 Hypokalemia; I48.0 Paroxysmal atrial fibrillation; E03.9 Hypothyroidism, unspecified; K21.9 Gastro-esophageal reflux disease without esophagitis; I25.10 Atherosclerotic heart disease of native coronary artery without angina pectoris; D63.1 Anemia in chronic kidney disease; E83.39 Other disorders of phosphorus metabolism; E78.00 Pure hypercholesterolemia, unspecified; F41.9 Anxiety disorder, unspecified; F32.A Depression, unspecified; K57.30 Diverticulosis of large intestine without perforation or abscess without bleeding; Z79.01 Long term (current) use of anticoagulants; Z87.891 Personal history of nicotine dependence; Z79.899 Other long term (current) drug therapy; Z86.73 Personal history of transient ischemic attack (TIA), and cerebral infarction without residual deficits; Z99.2 Dependence on renal dialysis; Z86.0100 Personal history of colon polyps, unspecified
CPT/HCPCS: 74177; 80048; 80053; 83690; 85025; 85027; 87015; 87045; 87046; 87070; 87205; 87324; 87328; 87329; 87427; 87449; 87798; 89051; 89055; 96361; 96374; 97163; 97167; 99285; Q9967

== ENCOUNTER 2025-03-31 09:44 | Inpatient (IN) | payer MEDICARE, BC, SELFPAY ==
[2025-03-27 15:22] VITALS: BP 125/49
[2025-03-27 15:23] VITALS: BP 125/49; BMI 21.0
[2025-03-27 15:45] LABS: % Basophils 0.5 % (0-2); % Eosinophils 0.7 % (0-6); % Immature Granulocytes 2.1 % (0-0.5); % Lymphocytes 15.6 % (20.5-51.1); % Monocytes 4.5 % (1.7-9.3); % Neutrophils 76.6 % (42.2-75.2); Absolute Basophils 0.1 10^3/uL (0-0.2); Absolute Eosinophils 0.2 10^3/uL (0-0.7); Absolute Immature Granulocytes 0.5 10^3/uL (0-0.05); Absolute Lymphocytes 3.5 10^3/uL (1.2-3.4); Hemoglobin 12.1 g/dL (13.0-18.0); Mean Corp Hgb Conc. 32.7 g/dL (33.0-37.0); Mean Corpuscular Hgb 29.6 pg (27.0-31.0); Mean Corpuscular Volume 90.5 fL (80.0-94.0); Mean Platelet Volume 9.6 fL (7.4-10.4); Nucleated Red Blood Cells % 0 % (-); Platelet Count 301 10^3/uL (130-400); Red Blood Cell Count 4.09 10^6/uL (4.70-6.10); Red Cell Dist. Width 16.6 % (11.5-14.5); White Blood Cell Count 22.2 10^3/uL (4.8-10.8)
[2025-03-27 16:00] VITALS: BP 111/48
[2025-03-27 16:19] LABS: ALT (SGPT) 25 U/L (0-50); AST (SGOT) 20 U/L (17-59); Albumin 2.7 g/dl (3.5-5.0); Alkaline Phosphatase 93 U/L (38-126); Blood Urea Nitrogen 30 mg/dl (9-20); Calcium 8.4 mg/dl (8.4-10.2); Carbon Dioxide 27 mmol/L (22-30); Chloride 96 mmol/L (98-107); Estimated Creatinine Clearance 7 ml/min; Glucose 87 mg/dl (70-99); Potassium 3.9 mmol/L (3.5-5.1); Sodium 131 mmol/L (135-145); Total Bilirubin 0.4 mg/dl (0.2-1.3); Total Protein 4.9 g/dl (6.3-8.2); eGFR 7.33
[2025-03-27 17:00] VITALS: BP 118/50
--- NOTE | 2025-03-27 17:14 | ED.GENMED ---
History of Present Illness
General
Chief Complaint: Generalized Pain
Source: patient
Time Seen by Provider: 03/27/25 17:13
History of Present Illness
History of Present Illness:
This patient is a 79-year-old male presents the emergency department because he was referred here by his visiting nurse who noted that he was very weak today. Patient was discharged from the hospital Friday after being diagnosed with ileitis. At
that time he did not have diarrhea. However, he noticed every time he ate yesterday he would have diarrhea which continued throughout the night. There was no blood or black flecks in the stool. He notes nausea but no vomiting. He did take
Imodium. He proceeded with peritoneal dialysis last night and said that it went well without any difficulties. He denies abdominal pain. He did have some burning discomfort in his abdomen yesterday relieved with Gaviscon. He denies fever,
chills, chest pain, shortness of breath, cough, or other complaints. Patient rarely makes urine. It is noted 'orthostatic' on his transfer paperwork, patient is unaware of details regarding this.
Past History
Past History
ED Past Medical History: CVA (Chronic right frontal, acute left occipital and frontal), HTN, Hypercholesterolemia and Other (Renal failure/peritoneal dialysis, left internal carotid artery stenosis, recurrent hypotension/orthostasis)
ED Past Surgical History: Other (Dialysis catheter)
Social History
Tobacco: Non-smoker
Alcohol: None
Drug: None
Personal:
Living: with family
Family History
Family History: Other (Reviewed and noncontributory)
Phy Exam
Physical Exam
Physical Exam:
GENERAL: Alert , in no apparent distress
EYE: pupils equal and reactive, no photophobia
NECK: Supple, no significant adenopathy.
ENT: o/p clr, mm dry
CARDIAC: Regular rate and rhythm .
LUNGS: Clear breath sounds bilaterally, no acute respiratory distress, no wheezes/rales/rhonchi
ABDOMEN: Soft, without focal tenderness, no r/g, no cvat, peritoneal catheter without surrounding drainage or bleeding
NEUROLOGICAL: Alert and oriented, no focal neuro deficits, no meningismus
SKIN: Warm and dry, skin intact.
MUSCULOSKELETAL: No edema, well perfused.
PSYCH: Normal and appropriate interaction.
Course
Orders/Labs/Results
Orders:
Orders
03/27/25 15:22
Electrocardiogram (*1) Urgent
Reason for Study: Chest Pain
EKG- Treatment ONCE
IV Insert/Care/Rem.- Treatment PRN
03/27/25 15:37
Complete Blood Count/With Diff Urgent
Comprehensive Metabolic Panel Urgent
03/27/25 17:16
Urinalysis Reflex To Culture Urgent
03/27/25 17:31
Stool Culture Urgent
[facility] Source: Feces/Stool
Specimen Description:
03/27/25 17:43
COVID-19 Antigen Urgent
Source: Nasal Swab
Lactic Acid Q4H
Comment: CANCEL 2nd LACTIC ACID IF 1st LACTIC ACID IS LESS THAN 2
Troponin I Urgent
Blood Culture Q30M
[facility] Source: Blood/Venous
Specimen Description:
Blood Culture Q30M
[facility] Source: Blood/Venous
Specimen Description:
Influenza A+B Rapid Molecular Urgent
DILL[facility] Source: Nasal Swab
Specimen Description:
03/27/25 19:26
Admit/Transfer Patient As Directed
Co-Sign Provider:
Level of Care: Observation services
Assign to:: IMU- Intermediate Care
Physician / Group: [email or web address]
Diagnosis: weakness, Leucocytosis with Lt shift , ESRD on PD, dirrhea
Reason for Hospitalization: ESRD on PD
03/27/25 19:28
Code Status As Directed
Resuscitation Status: Full Code
03/27/25 19:41
PRN Pain Medication Management As Directed
May give lesser potent ordered pain med per pt: Yes
preference::
Protocol:: Medication orders for pain may be administered in a
manner that supports deferring to patient preference
when the pt is:
- Requesting an ordered lesser potent pain medication.
Least to most potent pain medications are defined
as: acetaminophen < NSAID < tramadol < opioids
(morphine, oxycodone, hydromorphone).
- Requesting a lesser dose of the same medication IF
ORDERED.
- Requesting a less intrusive route of administration
if both routes are prescribed by the provider (PO <
IV).
03/27/25 20:32
Acetaminophen [Tylenol] 650 mg PO Q4HPRN PRN
Apixaban [Eliquis] 2.5 mg PO BID
Bisacodyl [Dulcolax] 10 mg RECTAL [id number] PRN
Bismuth Subsalicylate [Pepto-Bismol] 2 tablet PO DAILYPRN PRN GERD
Calcium 200mg(Ca. Carb. 500mg) [Tums Chewable Tablet] 200 mg PO BIDPRN PRN GERD
Docusate W/Senna [Senokot-S] 1 tablet PO BIDPRN PRN
HydrALAZINE [Apresoline] 5 mg PO TIDPRN PRN SBP > 180
Lisinopril [Zestril] 5 mg PO DAILYPRN PRN HIGH BLOOD PRESSURE OVER 130
Midodrine [ProAmatine] 2.5 mg PO BIDPRN PRN low blood pressure
Polyethylene Glycol Powder [Miralax] 17 grams PO DAILYPRN PRN
03/27/25 20:32
STOOL [C difficile Antigen & Toxins] Routine
[facility] Source: Feces/Stool
Specimen Description:
Stool Culture Routine
[facility] Source: Feces/Stool
Specimen Description:
Activity As Directed
Activity Level: With Assistance
Intake/ Output As Directed
Frequency: Per unit guidelines
Vital Signs As Directed
Frequency: Per unit guidelines
Weight As Directed
Frequency: Daily
03/27/25 22:00
Melatonin 5 mg PO HS
Mirtazapine [Remeron] 30 mg PO HS
03/28/25 03:38
Basic Metabolic Panel IN AM
Complete Blood Count/With Diff IN AM
TSH IN AM
03/28/25 06:00
Levothyroxine [Synthroid] 150 mcg PO DAILY@0600
03/28/25 08:00
Amiodarone [Pacerone] 200 mg PO DAILY
Aspirin Chewable [Low Strength Aspirin] 81 mg PO DAILY
Atorvastatin [Lipitor] 40 mg PO DAILY
B complex-vitamin C-folic acid [Dialyvite 800] 1 tablet PO DAILY
Pantoprazole [Protonix] 40 mg PO DAILY
calcium carbonate 500 mg PO DAILY
magnesium oxide 400 mg PO DAILY
Abnormal Lab Results
03/27/25
15:37
WBC 22.2 H 10^3/uL
(4.8-10.8)
RBC 4.09 L 10^6/uL
(4.70-6.10)
Hgb 12.1 L g/dL
(13.0-18.0)
Hct 37.0 L %
(39.0-52.0)
MCHC 32.7 L g/dL
(33.0-37.0)
RDW 16.6 H %
(11.5-14.5)
Abs Immat Gran (auto) 0.5 H 10^3/uL
(0-0.05)
Absolute Neuts (auto) 17.0 H 10^3/uL
(1.4-6.5)
Absolute Lymphs (auto) 3.5 H 10^3/uL
(1.2-3.4)
Absolute Monos (auto) 1.0 H 10^3/uL
(0.1-0.6)
Immature Gran % 2.1 H %
(0-0.5)
Neutrophils % 76.6 H %
(42.2-75.2)
Lymphocytes % 15.6 L %
(20.5-51.1)
Sodium 131 L mmol/L
(135-145)
Chloride 96 L mmol/L
(98-107)
BUN 30 H mg/dl
(9-20)
Creatinine 7.1 H* mg/dL
(0.7-1.3)
Total Protein 4.9 L g/dl
(6.3-8.2)
Albumin 2.7 L g/dl
(3.5-5.0)
03/27/25 15:37
03/27/25 15:37
Vital Signs
Initial and Last Documented VS:
Initial Vital Signs
BP
125/49
03/27/25 15:22
Last Documented Vital Signs
Temp Pulse Resp BP Pulse Ox
97.5 F 73 16 103/55 97
03/28/25 10:59 03/28/25 07:12 03/28/25 07:12 03/28/25 07:12 03/28/25 07:12
*Pulse Oximetry
SaO2: 96
Oxygen Mode of Delivery: Room air
*Critical Care Note
Total Time (30-74mins, 75-104mins- exclusive of procedures): Not Applicable
Update Note
Update Note:
Patient presents to the Emergency Department with generalized weakness
Number and Complexity of Problems Addressed at the Encounter
� Chronic conditions affecting care:
� Acute Exacerbation and/or Progression of Chronic Illness:
� Differential Diagnosis includes: But not limited to bacteremia, peritonitis, colitis, pneumonia, electrolyte disorder, etc. etc.
Amount and/or Complexity of Data to be Reviewed and Analyzed
� I performed an independent evaluation of and my interpretation is:
EKG: Read by me, normal sinus rhythm, LAD, low voltage, no acute ischemia
CT:
Xrays:
Laboratory Studies: Blood cell count elevation noted, baseline anemia, baseline creatinine, mild hyponatremia
Other:
� Review of other/old records reveals: Discharge summary from March 21 reviewed This is a 79-year-old male who presented on 03/21
with nausea, vomiting, diarrhea. His CT revealed enteritis/ileitis
and also ascites related to his peritoneal dialysis that fluid was
sampled, and cultures were negative. His stool studies were
negative. His symptoms spontaneously improved without antibiotics.
His diet was slowly advanced by GI services to low residue diet. He
was discharged home on 03/24.
� Clinical information was obtained by an independent historian:
� Prescriptions/Medications Considered but not given:
� Further testing considered but not performed:
Risk of Complications and/or Morbidity or Mortality of Patient Management
� Social determinants of health affecting care:
� Discussion with other providers (PCP, Hospitalists, Consultants, etc):
� Escalation of care including admission/observation vs risk of discharge considered: Vital signs unremarkable, no hypotension, tachycardia, fever, hypoxia. Patient noted to have new leukocytosis and generalized weakness, may be
bacteremic, cultures ordered as well as lactic acid. Highly doubt peritoneal infection given benign abdominal exam. Will try to collect a stool sample.
79 yr old pt on peritoneal dialysis, presents with weakness. wbc now 22K with L shift. No specific source of infx noted. Abd soft. No meningismus. Neg covid/flu. Cxs drawn. Lactic wnl. Suggest observation.D/w dr armas.
ED Attending Note
-
Portions of this chart may have been created with voice recognition software.� Occasional wrong word or��sound alike� substitutions may have occurred due to the inherent limitations of voice recognition software.
Discharge Plan
Departure
Patient Disposition: Admit
Date of Disposition: 03/27/25
Time of Disposition: 18:53
Presentation/result/management discussed w/ accepting MD/DO: Hospitalist
Condition: Fair
Discharge Problem:
Weakness
Interventions
Interventions:
*Risk Screen - Suicide Last Done: 03/27/25 15:23
*General Assessment Last Done: 03/27/25 15:23
*Neglect/Abuse Screening Last Done: 03/27/25 15:23
*ED- Fall Risk Assessment Last Done: 03/27/25 15:23
*ED COVID-19 Vaccine History Last Done: 03/27/25 15:23
*Nursing Disposition Last Done: 03/27/25 20:25
Discharge Date and Time
Discharge Date/Time: 03/27/25 20:27
[2025-03-27 18:12] LABS: COVID-19 Antigen Negative (Negative)
[2025-03-27 18:16] LABS: Lactic Acid 1.5 mmol/L (0.7-2.0)
--- NOTE | 2025-03-27 18:55 | HPS.HSE ---
Addendum entered and electronically signed by Ethan Mallory MD 03/27/25 19:46:
Patient will need allocated to IMU for PD but not IMU level of care for billing
Reason: RN on Med Surg floors are not trained to do PD per Stock Analyst
Original Note:
Family Physician
-
Family Physician: LUZ MARIA Wolfe
Chief Complaint
-
weakness referred by VN
History of Present Illness
HPI
79M Former smoker, HX ESRD on PD, ACDz, Lt ocipita CVA, Prx AF, chr Eliquis, CAD/CABG. chr HFpEF, HTN, ortho hypotension , GIB
sen to ER by VN
- evauation for weakness
- was DC'd on Friday after being diagnosed with ileitis , no diarrhea at that tome, was improved without ABx
- Since DC , onset of non bloody diarrhea which continued throughout the night. He took immodium last night
- on last admission , all NEG Cxs ( PD fluid, Stool studies)
- nausea but no vomiting.
- proceeded with peritoneal dialysis last night and said that it went well without any difficulties.
- rarely makes urine.
- No abdominal pain.
ROS
No fever, chills, chest pain, shortness of breath, cough, or other complaints.
Medical History
Past Medical History
Past Medical History: Reports Other
Additional Past Medical History:
Left Occipital Stroke
Severe Left Carotid Stenosis
Coronary Artery Disease s/p CABG
Paroxysmal Atrial Fibrillation
Heart Failure with Recovered Ejection Fraction
ESRD on Peritoneal Dialysis
Essential Hypertension
Hyperlipidemia
Hypothyroidism
Anemia of Chronic Kidney Disease
Past Surgical History: Reports Other (PD Cath placement )
Additional Past Surgical History:
CABG
PD Catheter Placement
Left TCAR (08/11/24)
Social History
Tobacco: Former Smoker (Quit 5 years ago. > 40 pack years total use.)
Alcohol: None
Living: With Family
Employment: Retired
Family History
Family History: Not pertinent
Allergies / Home Medications
Allergies reflects when Allergies were last updated in [employer].
Home Medications with original date entered in [employer]
Allergy/Medication List:
Allergies
Allergy/AdvReac Type Severity Reaction Status Date / Time
No Known Allergies Allergy Verified 10/28/24 19:28
Home Medications
amiodarone 200 mg tablet 200 mg PO DAILY Arrhythmia 07/28/24
atorvastatin 40 mg tablet 40 mg PO DAILY High Cholesterol 07/28/24
calcium carbonate 500 mg PO DAILY Gastrointestinal Issue 07/28/24
cyanocobalamin (vitamin B-12) 1,000 mcg tablet 1,000 mcg PO DAILY Supplement 07/28/24
levothyroxine 150 mcg tablet 150 mcg PO DAILY Thyroid 07/28/24
magnesium oxide 400 mg (241.3 mg magnesium) tablet 400 mg PO DAILY Supplement 07/28/24
vitamin B complex-vitamin C-folic acid 800 mcg chewable tablet (Dialyvite 800) 1 tab PO DAILY Supplement 07/28/24
apixaban 5 mg tablet (Eliquis) 2.5 mg PO BID Blood Clot Prevention/Tx 08/11/24
pantoprazole 40 mg tablet,delayed release 40 mg PO DAILY #30 tabs 08/13/24
aspirin 81 mg chewable tablet 81 mg PO DAILY Blood Clot Prevention/Tx 10/28/24
hydrocortisone acetate 25 mg rectal suppository 25 mg TX DAILYPRN PRN hemorrhoid 11/22/24
wheat dextrin 1 gram tablet (Benefiber (wheat dextrin)) 1 g PO BID Supplement 11/22/24
mirtazapine 15 mg tablet 15 mg PO DAILY Mental Health/Anxiety 12/09/24
aluminum hydrox-magnesium carb 95 mg-358 mg/15 mL oral suspension 15 ml PO DAILYPRN PRN gerd 03/21/25
hydralazine 10 mg tablet 5 mg PO TIDPRN PRN SBP > 180 03/21/25
melatonin 5 mg tablet 5 mg PO HS 03/21/25
midodrine 2.5 mg tablet 2.5 mg PO BIDPRN PRN low blood pressure 03/21/25
Review of Systems
-
History Source: Patient
Constitutional: Reports Weight Loss
Abdomen/GI: Reports Nausea, Vomiting and Diarrhea
Physical Exam
Vital Signs
Vital Signs
Temp Pulse Resp BP Pulse Ox
98.2 F 77 13 125/49 96
03/27/25 15:23 03/27/25 15:45 03/27/25 15:45 03/27/25 15:23 03/27/25 17:16
Physical Exam
General: Well Developed, No Apparent Distress, Comfortable, Conversant and Appears Chronically Ill
HEENT: NormoCephalic, Moist mucous membranes, Atraumatic, Brantley Conjunctivae, Nose Appears Normal and Ears Appear Normal
Respiratory: Clear and Non Labored Respirations
Cardiac: S1/S2 and Regular Rhythm; No Murmur, Rub or Gallop
Breast: Deferred by me
GI: Soft, Non Tender, Non Distended and Normal Bowel Sounds; No Organomegaly
Rectal: Deferred by Provider
Genito-urinary: Deferred by me
Musculoskeletal: No Clubbing, No Cyanosis and No Edema
Skin: Warm and IV/Catheter Site
Neuro: Awake, Alert, AO x 3 and Nonfocal/grossly intact
Psych: Calm
Laboratory Results
-
03/27/25 15:37
03/27/25 15:37
Laboratory Results
Lactic Acid 1.5 mmol/L (0.7-2.0) 03/27/25 17:43
Total Bilirubin 0.4 mg/dl (0.2-1.3) 03/27/25 15:37
AST 20 U/L (17-59) 03/27/25 15:37
ALT 25 U/L (0-50) 03/27/25 15:37
Alkaline Phosphatase 93 U/L (38-126) 03/27/25 15:37
Troponin I 0.020 ng/ml 03/27/25 17:43
Data Reviewed
-
Lab Data: Labs Reviewed by me
Old Records: Reviewed
Impression/Plan
-
VSS
03/27/25
15:23
Temp 98.2 F
Pulse 81
Resp Rate 15
Blood pressure 125/49
SaO2 96
Oxygen Mode of Delivery Room air
Relevant admission data
03/24/25 03/27/25 03/27/25
05:53 15:37 17:43
WBC 9.5 22.2 H
Hgb 10.6 L 12.1 L
Immature Gran % 2.1 H
Neutrophils % 76.6 H
Lymphocytes % 15.6 L
Sodium 131 L
Potassium 3.9 3.9
Chloride 96 L
Carbon Dioxide 27
BUN 30 H
Creatinine 7.1 H* 7.1 H*
eGFR 7.33 7.33
Glucose 87
Lactic Acid 1.5
Troponin I 0.020
Albumin 2.7 L
03/21/25 CT Abd/Pel (IV only)-DH only
- There is mild wall thickening and mucosal hyperenhancement of the distal ileum which likely represents ileitis/enteritis.
- There is moderate volume abdominal pelvic ascites, however this may related to peritoneal dialysis. There is a trace focus of pneumoperitoneum which is likely related to the peritoneal dialysis.
- Infrarenal abdominal aortic aneurysm measuring 3.3 cm. 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
- Colonic diverticulosis.
Last hospitalist admission: 03/21/2025 - 03/24/2025
ASSESSMENT & PLAN
Weakness due to subacute non bloody diarrhea
Recurrent Leucocytosis with Lt shift but afebrile, no chills
Recent CT suggest ileitis/enteritis. DDX: Infective vs ischemic
NEG Cx fo PD fluid, Stool studies on last admission
HX multiple colonoscopies and a flex sig in the last year.
- PD fluid cell count and Cx
- stool studies
- trend hemoglobin
- clear liquid diet.
- If nausea and vomiting and diarrhea remain improved tomorrow, will advance diet to regular.
- will observe without ABx for now
- PT/OT
Hypotension on Midodrine PRN
HX essential HTN
ESRD on PD
Anemia of chronic disease
- on fluid restriction; Na 130
- Nephrology consult
HX A. fib on Eliquis
- continue Amiodarone
- cont Eliquis
Infrarenal abdominal aortic aneurysm measuring 3.3 cm.
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
GI bleeding HX from hemorrhoids 11/2024
HX colon polyp
HX left occipital stroke with severe left carotid stenosis
CAD
- continue ASA/Statin
Hyperlipidemia
Hypothyroidism
- continue Levothyroxine
Chr HFrEF , ESRD
- on peritoneal dialysis
DVT ppx: SCDs
Code: Full
OBS MS
--- NOTE | 2025-03-27 20:40 | PTCARENOTE ---
Pt arrived to floor on stretcher from ED; Slid over to bed as Pt here with severe weakness; AAO x 3, pleasant; Denies pain; Denies Nausea; Reg apical; lungs CTA; Small non-blanchable area on sacrum and laceration on back of R hand documented; Pt
on Perotineal Dialysis - Overnight [facility] contacted for PD orders; Orders obtained, PD cart placed at Pt's room and dialysate bag placed in warmer. Pt oriented to room, call molina within reach. Will continue to monitor and assess.
[2025-03-27 20:41] VITALS: BMI 20.2
[2025-03-27 22:00] VITALS: BP 98/47
[2025-03-27] MEDS: REMERON 30 MG PO (22:07)
[2025-03-27] MEDS: MELATONIN 5 MG PO (22:08)
[2025-03-27] MEDS: ELIQUIS 2.5 MG PO (22:08)
[2025-03-27 22:43] VITALS: BP 100/64
[2025-03-28] VITALS (11 sets, daily range): BP systolic 101–137; BP diastolic 47–64; PULSE 64; BMI 20.6
[2025-03-28 04:15] LABS: % Basophils 0.5 % (0-2); % Eosinophils 1.8 % (0-6); % Monocytes 4.8 % (1.7-9.3); % Neutrophils 71.9 % (42.2-75.2); Absolute Basophils 0.1 10^3/uL (0-0.2); Absolute Eosinophils 0.3 10^3/uL (0-0.7); Absolute Immature Granulocytes 0.4 10^3/uL (0-0.05); Absolute Lymphocytes 3.3 10^3/uL (1.2-3.4); Absolute Monocytes 0.8 10^3/uL (0.1-0.6); Absolute Neutrophils 12.5 10^3/uL (1.4-6.5); Hematocrit 32.8 % (39.0-52.0); Hemoglobin 10.7 g/dL (13.0-18.0); Mean Corp Hgb Conc. 32.6 g/dL (33.0-37.0); Mean Corpuscular Hgb 29.5 pg (27.0-31.0); Mean Corpuscular Volume 90.4 fL (80.0-94.0); Mean Platelet Volume 9.8 fL (7.4-10.4); Nucleated Red Blood Cells % 0 % (-); Platelet Count 280 10^3/uL (130-400); Red Blood Cell Count 3.63 10^6/uL (4.70-6.10); Red Cell Dist. Width 16.6 % (11.5-14.5); White Blood Cell Count 17.4 10^3/uL (4.8-10.8)
[2025-03-28 04:33] LABS: Blood Urea Nitrogen 32 mg/dl (9-20); Calcium 8.2 mg/dl (8.4-10.2); Carbon Dioxide 30 mmol/L (22-30); Chloride 95 mmol/L (98-107); Estimated Creatinine Clearance 6 ml/min; Glucose 81 mg/dl (70-99); Potassium 3.8 mmol/L (3.5-5.1); Sodium 130 mmol/L (135-145); eGFR 6.76
[2025-03-28 05:01] LABS: TSH 0.17 uIU/ml (0.47-4.68)
[2025-03-28] MEDS: SYNTHROID 150 MCG PO (05:24)
[2025-03-28] MEDS: LIPITOR 40 MG PO (07:59)
[2025-03-28] MEDS: MAG-TAB SR 84 MG PO (07:59)
[2025-03-28] MEDS: PACERONE 200 MG PO (08:00)
[2025-03-28] MEDS: NEPHROCAP 1 CAPSULE PO (08:02)
[2025-03-28] MEDS: PROTONIX 40 MG PO ×2 (08:02→21:18)
[2025-03-28] MEDS: OSCAL CAL 500 500 MG PO (08:02)
[2025-03-28] MEDS: LOW STRENGTH ASPIRIN 81 MG PO (08:02)
[2025-03-28] MEDS: ELIQUIS 2.5 MG PO ×2 (08:02→21:17)
--- NOTE | 2025-03-28 11:59 | W.CON.NEPH ---
Consultation
-
Date/Time Consultation Requested: March 27, 2025 10 PM
Date/Time Consultation Performed: March 28, 2025 at 11 AM
Requesting Provider: Dr. Mallory
Performing Provider: Dr. Hickey
Reason for Consultation: ESRD on PD
Medical History
-
Chief Complaint: n/v/d
History of Present Illness:
79-year-old male with CAD status post CABG, paroxysmal atrial fibrillation(maintained on amiodarone and anticoagulated with Eliquis), HFrEF, ESRD on peritoneal dialysis, hypertension, hypercholesteremia, hypothyroidism , orthostatic hypotension, GIB
from hemorrhoids who presents to ED for evaluation weakness and diarrhea.
Renal consult for end-stage renal disease
Recently discharged with ileitis improved with antibiotics.
Past Medical History
End-stage renal disease on peritoneal dialysis
Coronary artery disease with history of CABG
Paroxysmal atrial fibrillation on chronic anticoagulation
HFpEF
orthostatic hypotension
Hypothyroidism
Hyperphosphatemia
Anemia
Dyslipidemia
Left occipital stroke with severe left carotid artery stenosis
Social History
Tobacco: Non-Smoker
Alcohol: None
Drug: None
Family History
no ckd
Family History: Not Pertinent
Allergies / Home Medications
Allergy/AdvReac Type Severity Reaction Status Date / Time
No Known Allergies Allergy Verified 10/28/24 19:28
�Medication �Instructions �Recorded �Confirmed �Type
amiodarone 200 mg tablet 200 mg PO DAILY Arrhythmia 07/28/24 03/27/25 History
atorvastatin 40 mg tablet 40 mg PO DAILY High Cholesterol 07/28/24 03/27/25 History
calcium carbonate 500 mg PO DAILY Gastrointestinal 07/28/24 03/27/25 History
Issue
cyanocobalamin (vitamin B-12) 1,000 mcg PO DAILY Supplement 07/28/24 03/27/25 History
1,000 mcg tablet
levothyroxine 150 mcg tablet 150 mcg PO DAILY Thyroid 07/28/24 03/27/25 History
magnesium oxide 400 mg (241.3 mg 400 mg PO DAILY Supplement 07/28/24 03/27/25 History
magnesium) tablet
vitamin B complex-vitamin C-folic 1 tab PO DAILY Supplement 07/28/24 03/27/25 History
acid 800 mcg chewable tablet
(Dialyvite 800)
apixaban 5 mg tablet (Eliquis) 2.5 mg PO BID Blood Clot 08/11/24 03/27/25 History
Prevention/Tx
pantoprazole 40 mg tablet,delayed 40 mg PO DAILY #30 tabs 08/13/24 03/27/25 Rx
release
aspirin 81 mg chewable tablet 81 mg PO DAILY Blood Clot 10/28/24 03/27/25 History
Prevention/Tx
mirtazapine 15 mg tablet 30 mg PO HS Mental Health/Anxiety 12/09/24 03/27/25 History
hydralazine 10 mg tablet 5 mg PO TIDPRN PRN SBP > 180 03/21/25 03/27/25 History
melatonin 5 mg tablet 5 mg PO HS Sleep 03/21/25 03/27/25 History
midodrine 2.5 mg tablet 2.5 mg PO BIDPRN PRN low blood 03/21/25 03/27/25 History
pressure
bismuth subsalicylate 262 mg 2 tab PO DAILYPRN PRN GERD 03/27/25 03/27/25 History
chewable tablet (Pepto-Bismol)
calcium carbonate (Tums) 200 mg PO BIDPRN PRN GERD 03/27/25 03/27/25 History
inulin-sorbitol 2 gram chewable 1 tab PO BID 03/27/25 03/27/25 History
tablet
lisinopril 5 mg tablet 5 mg PO DAILYPRN PRN HIGH BLOOD 03/27/25 03/27/25 History
PRESSURE OVER 130
Review of Systems
-
No chest pain or shortness of breath no black tarry stools
All other systems: Negative unless noted
Physical Exam
Vital Signs
Vital Signs
Temp Pulse Resp BP Pulse Ox
97.5 F 73 16 103/55 97
03/28/25 10:59 03/28/25 07:12 03/28/25 07:12 03/28/25 07:12 03/28/25 07:12
Lab Results
WBC 17.4 10^3/uL (4.8-10.8) H 03/28/25 03:38
RBC 3.63 10^6/uL (4.70-6.10) L 03/28/25 03:38
Hgb 10.7 g/dL (13.0-18.0) L 03/28/25 03:38
Hct 32.8 % (39.0-52.0) L 03/28/25 03:38
Plt Count 280 10^3/uL (130-400) 03/28/25 03:38
Sodium 130 mmol/L (135-145) L 03/28/25 03:38
Potassium 3.8 mmol/L (3.5-5.1) 03/28/25 03:38
Chloride 95 mmol/L (98-107) L 03/28/25 03:38
Carbon Dioxide 30 mmol/L (22-30) 03/28/25 03:38
BUN 32 mg/dl (9-20) H 03/28/25 03:38
Creatinine 7.6 mg/dL (0.7-1.3) H* 03/28/25 03:38
eGFR 6.76 03/28/25 03:38
Glucose 81 mg/dl (70-99) 03/28/25 03:38
Calcium 8.2 mg/dl (8.4-10.2) L 03/28/25 03:38
Albumin 2.7 g/dl (3.5-5.0) L 03/27/25 15:37
Physical Exam
General no acute distress
HEENT no cephalic atraumatic extraocular muscle intact no scleral icterus no JVD neck supple
lungs clear to auscultation bilateral
heart regular S1-S2 positive
abdomen soft nontender positive bowel sounds
extremities no edema pulses present bilateral
Neurologically nonfocal alert and oriented x 3
Skin no lesions no abrasions no petechiae
Psych normal affect no bizarre behavior
Data Reviewed
-
Labs: Labs Reviewed by me, Discussed with Physician, Discussed with Nurse and Discussed with Patient
Assessment/Plan
-
Impression:
Diarrhea and weakness
History of enteritis/ileitis
End-stage renal disease on peritoneal dialysis
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
Left carotid stenosis
Hypertension
Paroxysmal atrial fibrillation
Hyperphosphatemia
Anemia
History of CABG
h/o bilat CEA at [facility]
TCAR 08/11/2024
Plan:
PD 1.5%, Dwell 4hr, manual exchange
Flowsheets reviewed no significant UF, essentially even ,weights stable
PD orders provided
Leukocytosis= no signs of peritonitis. No abdominal pain fluid is clear
permissive HTN with h/o orthostatic hypotension history/midodrine as indicated midodrine
--- NOTE | 2025-03-28 13:35 | W.PN.HOSP.TC ---
Today's Communication/Plan
-
monitor wnc/fever
monitor bowel habits
no abx
pt/ot evaluation
continue PD per nephro
Assessment / Plan
Assessment / Plan
1. Generalized weakness
Recurring diarrhea
Recent episode of infectious ileitis/enteritis
- Patient was discharged from hospital on 03/24 after being treated for presumed infectious ileitis/enteritis
- Stool studies were negative at the time
- Patient presented for ongoing diarrhea yesterday, reported bowel movements in hospital has been soft
- No associated abdominal pain/nausea/vomiting/fever. Abdominal examination remains benign.
- Monitor patient for any recurrence of diarrhea
- Patient has some leukocytosis which is likely reactive and in light of any clear infectious source would avoid unnecessary antibiotic
- Patient to get PT OT evaluation
2. End-stage renal disease on peritoneal dialysis
- Patient remains in IMU to facilitate peritoneal dialysis
- Nephrology on board and help appreciated.
3. Leukocytosis -likely reactive
- Continue monitoring off antibiotics
- If patient spikes fever will require blood/urine culture/stool studies with initiation of broad-spectrum antibiotics
4. Chronic hyponatremia
- As part of ESRD, monitor.
Hypotension on Midodrine PRN
Hx essential HTN
HX A. fib on Eliquis/amiodarone
Infrarenal abdominal aortic aneurysm measuring 3.3 cm.
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
GI bleeding history from hemorrhoids 11/2024
HX colon polyp
HX left occipital stroke with severe left carotid stenosis
CAD - continue ASA/Statin
Hyperlipidemia
Hypothyroidism - continue Levothyroxine
Chronic diastolic HF - EF 60-65% on 11/23/24
DVT ppx: SCDs
Code: Full
Anticipated Discharge: 24 - 48 hours
Subjective/Interval History
-
Date of Service: March 28, 2025
Resting comfortably in bed
Reported some diarrhea at home, soft in hospital
No abdominal pain nausea vomiting
Objective Data
-
Labs:
Laboratory Results
03/28/25
03:38
WBC 17.4 H
Hgb 10.7 L
Hct 32.8 L
Plt Count 280
Sodium 130 L
Potassium 3.8
Chloride 95 L
Carbon Dioxide 30
BUN 32 H
Creatinine 7.6 H*
Glucose 81
Calcium 8.2 L
Vital Signs:
Vital Signs
Temp Pulse Resp BP Pulse Ox
97.5 F 73 16 103/55 97
03/28/25 10:59 03/28/25 07:12 03/28/25 07:12 03/28/25 07:12 03/28/25 07:12
I&O
03/27/25 03/28/25 03/29/25
06:59 06:59 06:59
Intake Total 220 / 220
Balance 220 / 220
Review of Systems
-
Respiratory: Reports No Symptoms
Cardiac: Reports No Symptoms
Abdomen/GI: Reports Nausea and Diarrhea
Physical Exam
-
Respiratory: Clear to Auscultation
Cardiac: Regular Rhythm and S1/S2; Negative Murmur
GI: Soft, Nontender, Nondistended and Other (PD cath in place)
Neuro: Awake, Alert, Oriented and No Motor Deficits
Psych: Calm
--- NOTE | 2025-03-28 16:12 | CM ---
CM attempted bedside visit and pt sleeping
CEBALLOS left bedside
Call with dtr
Pt resides with dtr in a 2 with 0STE, first floor set up
Pt utilizes a WW and 1 person assist for ambulation and personal care
Pt had private pay nursing 5x days weekly
[facility]
Dtr or nurses administer the PD
[facility]
Pt admitted to from 03/23-03/24 and set up with [facility], did not open due to admission
PCP- Iliana Hoang
Rx- [facility] [place]
CEBALLOS verbally reviewed
Palliative vs hospice info provided to dtr per her request
She is requesting palliative referral on dc to
Discharge Disposition- home with VN, new palliative care and continued PD
[2025-03-28] MEDS: REMERON 30 MG PO (21:18)
[2025-03-28] MEDS: MELATONIN 5 MG PO (21:18)
[2025-03-28] MEDS: PEPTO-BISMOL 2 TABLET PO (21:21)
[2025-03-29] MEDS: SYNTHROID 150 MCG PO (04:09)
[2025-03-29 04:16] VITALS: BMI 19.9
[2025-03-29 04:48] LABS: Hematocrit 32.5 % (39.0-52.0); Hemoglobin 10.8 g/dL (13.0-18.0); Mean Corp Hgb Conc. 33.2 g/dL (33.0-37.0); Mean Corpuscular Hgb 29.5 pg (27.0-31.0); Mean Corpuscular Volume 88.8 fL (80.0-94.0); Mean Platelet Volume 9.4 fL (7.4-10.4); Platelet Count 259 10^3/uL (130-400); Red Blood Cell Count 3.66 10^6/uL (4.70-6.10); Red Cell Dist. Width 16.8 % (11.5-14.5); White Blood Cell Count 15.4 10^3/uL (4.8-10.8)
[2025-03-29 05:09] LABS: Blood Urea Nitrogen 30 mg/dl (9-20); Calcium 7.9 mg/dl (8.4-10.2); Carbon Dioxide 27 mmol/L (22-30); Chloride 95 mmol/L (98-107); Estimated Creatinine Clearance 7 ml/min; Glucose 86 mg/dl (70-99); Potassium 3.6 mmol/L (3.5-5.1); Sodium 129 mmol/L (135-145); eGFR 7.86
--- NOTE | 2025-03-29 05:42 | PTCARENOTE ---
Pt able to make needs known. Pt appeared to tolerate PD over night with out complaints. Assessment care and vitals as charted. Call molina within reach.
[2025-03-29 07:38] VITALS: BP 91/49
[2025-03-29] MEDS: NEPHROCAP 1 CAPSULE PO (08:06)
[2025-03-29] MEDS: PROTONIX 40 MG PO ×2 (08:07→22:16)
[2025-03-29] MEDS: OSCAL CAL 500 500 MG PO (08:07)
[2025-03-29] MEDS: LOW STRENGTH ASPIRIN 81 MG PO (08:07)
[2025-03-29] MEDS: LIPITOR 40 MG PO (08:07)
[2025-03-29] MEDS: MAG-TAB SR 84 MG PO (08:07)
[2025-03-29] MEDS: ELIQUIS 2.5 MG PO ×2 (08:07→22:15)
[2025-03-29 09:40] VITALS: BP 117/49
[2025-03-29] MEDS: PACERONE 200 MG PO (09:42)
--- NOTE | 2025-03-29 10:54 | PTCARENOTE ---
Assumed care of patient at beginning of this shift from previous RN. PD completed this morning. Patient had one episode of diarrhea yesterday evening, but no further since. See worklist for full assessment, vital signs and PD documentation.
--- NOTE | 2025-03-29 12:54 | W.PN.NEPH.PH ---
Today's Communication / Plan
-
Continue PD as ordered
Assessment/Plan
-
Impression:
Diarrhea and weakness
History of enteritis/ileitis
End-stage renal disease on peritoneal dialysis
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
Left carotid stenosis
Hypertension
Paroxysmal atrial fibrillation
Hyperphosphatemia
Anemia
History of CABG
h/o bilat CEA at [facility]
TCAR 08/11/2024
Plan:
PD 1.5%, Dwell 4hr, manual exchange
PD orders provided
Leukocytosis= no signs of peritonitis. No abdominal pain fluid is clear
permissive HTN with h/o orthostatic hypotension history/midodrine as indicated midodrine
Stool workup is negative patient has not had a bowel movement today
-
-
Date of Service: March 29, 2025
CC / HPI / ROS
-
Chief Complaint:
Diarrhea
History of Present Illness:
End-stage renal disease on peritoneal dialysis presents with diarrhea and weakness
Review of Systems:
No chest pain shortness of breath nausea or vomiting no diarrhea
Labs
-
Labs:
WBC 15.4 10^3/uL (4.8-10.8) H 03/29/25 04:07
RBC 3.66 10^6/uL (4.70-6.10) L 03/29/25 04:07
Hgb 10.8 g/dL (13.0-18.0) L 03/29/25 04:07
Hct 32.5 % (39.0-52.0) L 03/29/25 04:07
Plt Count 259 10^3/uL (130-400) 03/29/25 04:07
Sodium 129 mmol/L (135-145) L 03/29/25 04:07
Potassium 3.6 mmol/L (3.5-5.1) 03/29/25 04:07
Chloride 95 mmol/L (98-107) L 03/29/25 04:07
Carbon Dioxide 27 mmol/L (22-30) 03/29/25 04:07
BUN 30 mg/dl (9-20) H 03/29/25 04:07
Creatinine 6.7 mg/dL (0.7-1.3) H* 03/29/25 04:07
eGFR 7.86 03/29/25 04:07
Glucose 86 mg/dl (70-99) 03/29/25 04:07
Calcium 7.9 mg/dl (8.4-10.2) L 03/29/25 04:07
Albumin 2.7 g/dl (3.5-5.0) L 03/27/25 15:37
Physical Exam
-
Vital Signs:
Vital Signs
Temp Pulse Resp BP Pulse Ox
97.8 F 67 14 117/49 97
03/29/25 07:38 03/29/25 07:38 03/29/25 07:38 03/29/25 09:40 03/29/25 07:38
Cardiovascular:: Regular rate and rhythm
Respiratory:: Bilateral: CTA
Lung Excursion:: Normal
Abdomen:: Nontender and Soft
Bowel Sounds:: Decreased
Extremity Edema:: None: Bilateral:
Gavin Catheter: No
--- NOTE | 2025-03-29 13:23 | W.PN.HOSP.TC ---
Today's Communication/Plan
-
continue monitoring for diarrhea
repeat labs in the morning
possible d/c home tomorrow if medically appropriate
Assessment / Plan
Assessment / Plan
1. Generalized weakness
Recurring diarrhea
Recent episode of infectious ileitis/enteritis
- Patient was discharged from hospital on 03/24 after being treated for presumed infectious ileitis/enteritis
- Stool studies were negative last week
- Patient presented for ongoing diarrhea again, reported bowel movements in hospital has been soft
- No associated abdominal pain/nausea/vomiting/fever. Abdominal examination remains benign.
- Monitor patient for any recurrence of diarrhea
- Patient has some leukocytosis which is likely reactive and in light of any clear infectious source would avoid unnecessary antibiotic, wbc has been trending down,
- PT evaluated and appropriate for home level care.
2. End-stage renal disease on peritoneal dialysis
- Patient remains in IMU to facilitate peritoneal dialysis
- Nephrology on board and help appreciated.
3. Leukocytosis -likely reactive
- slowly improving
- Continue monitoring off antibiotics
- If patient spikes fever will require blood/urine culture/stool studies with initiation of broad-spectrum antibiotics
4. Chronic hyponatremia
- As part of ESRD, monitor.
Hypotension on Midodrine PRN
Hx essential HTN
HX A. fib on Eliquis/amiodarone
Infrarenal abdominal aortic aneurysm measuring 3.3 cm.
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
GI bleeding history from hemorrhoids 11/2024
HX colon polyp
HX left occipital stroke with severe left carotid stenosis
CAD - continue ASA/Statin
Hyperlipidemia
Hypothyroidism - continue Levothyroxine
Chronic diastolic HF - EF 60-65% on 11/23/24
DVT ppx: SCDs
Code: Full
Anticipated Discharge: Within 24 hours
Subjective/Interval History
-
Date of Service: March 29, 2025
no new reported problems overnight
diarrhea is better
no abd pain/nausea/vomiting
Objective Data
-
Labs:
Laboratory Results
03/29/25
04:07
WBC 15.4 H
Hgb 10.8 L
Hct 32.5 L
Plt Count 259
Sodium 129 L
Potassium 3.6
Chloride 95 L
Carbon Dioxide 27
BUN 30 H
Creatinine 6.7 H*
Glucose 86
Calcium 7.9 L
Vital Signs:
Vital Signs
Temp Pulse Resp BP Pulse Ox
97.8 F 67 14 117/49 97
03/29/25 07:38 03/29/25 07:38 03/29/25 07:38 03/29/25 09:40 03/29/25 07:38
I&O
03/28/25 03/29/25 03/30/25
06:59 06:59 06:59
Intake Total 220 / 220 90 / 90 480 / 480
Output Total 300 / 300
Balance 220 / 220 -210 / -210 480 / 480
Review of Systems
-
Respiratory: Reports No Symptoms
Cardiac: Reports No Symptoms
Abdomen/GI: Reports No Symptoms
Physical Exam
-
Respiratory: Clear to Auscultation
Cardiac: Regular Rhythm and S1/S2; Negative Murmur
GI: Soft, Nontender, Nondistended and Other (PD cath in place)
Neuro: Awake, Alert, Oriented and No Motor Deficits
Psych: Calm
--- NOTE | 2025-03-29 14:09 | PTCARENOTE ---
Addendum entered by Eliana Anderson RN 03/29/25 14:11:
For this PD treatment patient was laying completely on his left side during the entire treatment. Dr Hickey also made aware of this.
Original Note:
Completed PD; patient with 2500 out using ordered 1.5 dialysate. Another RN confirmed scale was zeroed and amount out. Dr Hickey notified and aware via TT.
--- NOTE | 2025-03-29 14:27 | CM ---
Patient with Hx ESRD on PD, Recent episode of infectious ileitis/enteritis with Dx Generalized weakness, Recurring diarrhea. PT/OT recommend HH.
Per prior CM notes 03/28: daughter requesting palliative referral on dc to , current with [facility] .
Per prior CM notes 03/23: Daughter relays he has [employer] private pay caregivers about 8hrs/week who help with his PD.
Messages with Dr Pedroza; confirmed ok to refer to Outpatient Palliative Care. CM also referring back to home health. Per MD likely discharge tomorrow.
Referral placed to Outpatient Palliative Care.
Referral placed for resumption [facility].
Spoke with [facility] (fax [phone]); provided update probable d/c tomorrow.
Plan home with referral to Palliative Care, with resumption of [facility], with resumption caregivers, with daughter.
[2025-03-29 15:28] VITALS: BP 137/60
[2025-03-29 15:29] VITALS: BP 137/60
--- NOTE | 2025-03-29 18:02 | PTCARENOTE ---
Addendum entered by Eliana Anderson RN 03/29/25 18:28:
Dr Hickey made aware; no further orders given. Dr Pedroza ordered one time dose of roxicodone which was given.
Addendum entered by Eliana Anderson RN 03/29/25 18:07:
TT also sent to Dr Pedroza to inform his as well.
Original Note:
PD treatment in progress at this time; currently filling. After drain, patient noted to have 2400 out. He is also c/o stomach burning. Patient had one loose stool this evening and one loose stool yesterday evening. TT sent to Dr Hickey. Await
further instructions.
[2025-03-29] MEDS: ROXICODONE 5 MG PO (18:24)
--- NOTE | 2025-03-29 22:02 | PTCARENOTE ---
Pt AAOx4. Pt refusing hygiene care at this time, education given. Pt appears to be tolerating PD. Assessment care and vitals as charted.
[2025-03-29] MEDS: REMERON 30 MG PO (22:16)
[2025-03-29] MEDS: MELATONIN 5 MG PO (22:16)
[2025-03-29 23:45] VITALS: BP 111/47
[2025-03-29 23:57] VITALS: BP 111/47
[2025-03-30] VITALS (8 sets, daily range): BP systolic 105–165; BP diastolic 46–81; BMI 20.5
[2025-03-30 04:28] LABS: Hematocrit 32.4 % (39.0-52.0); Hemoglobin 10.5 g/dL (13.0-18.0); Mean Corp Hgb Conc. 32.4 g/dL (33.0-37.0); Mean Corpuscular Hgb 29.8 pg (27.0-31.0); Mean Platelet Volume 9.6 fL (7.4-10.4); Platelet Count 242 10^3/uL (130-400); Red Blood Cell Count 3.52 10^6/uL (4.70-6.10); Red Cell Dist. Width 16.6 % (11.5-14.5); White Blood Cell Count 12.5 10^3/uL (4.8-10.8)
[2025-03-30 04:55] LABS: Blood Urea Nitrogen 25 mg/dl (9-20); Calcium 7.9 mg/dl (8.4-10.2); Carbon Dioxide 30 mmol/L (22-30); Chloride 96 mmol/L (98-107); Estimated Creatinine Clearance 8 ml/min; Glucose 94 mg/dl (70-99); Potassium 3.6 mmol/L (3.5-5.1); Sodium 133 mmol/L (135-145); eGFR 8.15
[2025-03-30] MEDS: SYNTHROID 150 MCG PO (05:47)
[2025-03-30] MEDS: LOW STRENGTH ASPIRIN 81 MG PO (08:21)
[2025-03-30] MEDS: ELIQUIS 2.5 MG PO ×2 (08:21→19:57)
[2025-03-30] MEDS: OSCAL CAL 500 500 MG PO (08:21)
[2025-03-30] MEDS: NEPHROCAP 1 CAPSULE PO (08:21)
[2025-03-30] MEDS: PACERONE 200 MG PO (08:21)
[2025-03-30] MEDS: LIPITOR 40 MG PO (08:21)
[2025-03-30] MEDS: PROTONIX 40 MG PO ×2 (08:21→19:56)
[2025-03-30] MEDS: MAG-TAB SR 84 MG PO (08:21)
--- NOTE | 2025-03-30 09:34 | W.PN.HOSP.TC ---
Today's Communication/Plan
-
see note
d/c for home with HH
Assessment / Plan
Assessment / Plan
1. Generalized weakness
Recurring diarrhea
Recent episode of infectious ileitis/enteritis
- Patient was discharged from hospital on 03/24 after being treated for presumed infectious ileitis/enteritis
- Stool studies were negative last week
- Patient presented for ongoing diarrhea again, reported bowel movements in hospital has been soft
- No associated abdominal pain/nausea/vomiting/fever. Abdominal examination remains benign
- PT evaluated and appropriate for home level ca
- Patient likely have postinfectious vs chronic diarrhea at this stage. continual symptomatic care with imodium +- lomotil discussed. I have called GI to provide patient early appointment as will require further OP testing if symptoms persist.
2. End-stage renal disease on peritoneal dialysis
- Patient remains in IMU to facilitate peritoneal dialysis
- Nephrology on board and help appreciated.
3. Leukocytosis -likely reactive
- almost resolved. 12k today
- Continue monitoring off antibiotics
- If patient spikes fever will require blood/urine culture/stool studies with initiation of broad-spectrum antibiotics
4. Chronic hyponatremia
- As part of ESRD, monitor.
Hypotension on Midodrine PRN
Hx essential HTN
HX A. fib on Eliquis/amiodarone
Infrarenal abdominal aortic aneurysm measuring 3.3 cm.
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
GI bleeding history from hemorrhoids 11/2024
HX colon polyp
HX left occipital stroke with severe left carotid stenosis
CAD - continue ASA/Statin
Hyperlipidemia
Hypothyroidism - continue Levothyroxine
Chronic diastolic HF - EF 60-65% on 11/23/24
DVT ppx: SCDs
Code: Full
Care plan discussed with daughter 03/28 and today
Daughter have expressed wish for patient to be enrolled in palliative care, CM has provided the details. Also daughter have expressed that she is not able to take care of her father and I have recommneded possible SNF placement . Asked CM to provide
daughter with contact details of SNF in the area to start the process. Daughter encouraged to discuss the issue with his father.
More than 30 minutes spent in discharge including
Final examination of the patient
Summarizing hospital stay
Instructions for continuing care to all relevant caregivers
Preparation of discharge records, prescriptions, and referral forms
Total time spent (in minutes): 39 mins
Anticipated Discharge: Today
Subjective/Interval History
-
Date of Service: March 30, 2025
patient subjectively feeling better
no abd pain
had some diarrhea yesterday evening
Objective Data
-
Labs:
Laboratory Results
03/30/25
04:02
WBC 12.5 H
Hgb 10.5 L
Hct 32.4 L
Plt Count 242
Sodium 133 L
Potassium 3.6
Chloride 96 L
Carbon Dioxide 30
BUN 25 H
Creatinine 6.5 H*
Glucose 94
Calcium 7.9 L
Vital Signs:
Vital Signs
Temp Pulse Resp BP Pulse Ox
97.6 F 77 18 107/81 97
03/30/25 07:35 03/30/25 07:35 03/30/25 07:35 03/30/25 08:01 03/30/25 07:35
I&O
03/29/25 03/30/25 03/31/25
06:59 06:59 06:59
Intake Total 90 / 90 600 / 600
Output Total 300 / 300 1200 / 1200
Balance -210 / -210 -600 / -600
Review of Systems
-
Respiratory: Reports No Symptoms
Cardiac: Reports No Symptoms
Abdomen/GI: Reports Diarrhea; Denies Abdominal Pain, Nausea or Vomiting
Physical Exam
-
Respiratory: Clear to Auscultation
Cardiac: Regular Rhythm and S1/S2; Negative Murmur
GI: Soft, Nontender, Nondistended and Other (PD cath in place)
Neuro: Awake, Alert, Oriented and No Motor Deficits
Psych: Calm
--- NOTE | 2025-03-30 10:22 | PTCARENOTE ---
Assumed care of patient at beginning of this shift from previous RN. PD treatment done this morning; see intervention for details. Patient for discharge. TT sent to SANJUANA Iverson; she informed this nurse that Dr Pedroza spoke with daughter who is refusing
to take patient home at this time. Zayra stated she will update this RN. See worklist for full assessment and vital signs.
--- NOTE | 2025-03-30 10:42 | W.PN.NEPH.PH ---
Today's Communication / Plan
-
ok for d/c
Assessment/Plan
-
Impression:
Diarrhea and weakness
History of enteritis/ileitis
End-stage renal disease on peritoneal dialysis
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
Left carotid stenosis
Hypertension
Paroxysmal atrial fibrillation
Hyperphosphatemia
Anemia
History of CABG
h/o bilat CEA at [facility]
TCAR 08/11/2024
Plan:
tolerating PD
PD 1.5%, Dwell 4hr, manual exchange
flow sheets noted
stable vol status
Leukocytosis= no signs of peritonitis. No abdominal pain and fluid is clear
permissive HTN with h/o orthostatic hypotension
ok for d/c
-
-
Date of Service: March 30, 2025
CC / HPI / ROS
-
Chief Complaint:
Diarrhea
History of Present Illness:
End-stage renal disease on peritoneal dialysis presents with diarrhea and weakness
sodium 133-stable
wt is up but stable over all
Review of Systems:
No chest pain shortness of breath nausea or vomiting no diarrhea
Labs
-
Labs:
WBC 12.5 10^3/uL (4.8-10.8) H 03/30/25 04:02
RBC 3.52 10^6/uL (4.70-6.10) L 03/30/25 04:02
Hgb 10.5 g/dL (13.0-18.0) L 03/30/25 04:02
Hct 32.4 % (39.0-52.0) L 03/30/25 04:02
Plt Count 242 10^3/uL (130-400) 03/30/25 04:02
Sodium 133 mmol/L (135-145) L 03/30/25 04:02
Potassium 3.6 mmol/L (3.5-5.1) 03/30/25 04:02
Chloride 96 mmol/L (98-107) L 03/30/25 04:02
Carbon Dioxide 30 mmol/L (22-30) 03/30/25 04:02
BUN 25 mg/dl (9-20) H 03/30/25 04:02
Creatinine 6.5 mg/dL (0.7-1.3) H* 03/30/25 04:02
eGFR 8.15 03/30/25 04:02
Glucose 94 mg/dl (70-99) 03/30/25 04:02
Calcium 7.9 mg/dl (8.4-10.2) L 03/30/25 04:02
Albumin 2.7 g/dl (3.5-5.0) L 03/27/25 15:37
Physical Exam
-
Vital Signs:
Vital Signs
Temp Pulse Resp BP Pulse Ox
97.6 F 77 18 107/81 97
03/30/25 07:35 03/30/25 07:35 03/30/25 07:35 03/30/25 08:01 03/30/25 07:35
Cardiovascular:: Regular rate and rhythm
Respiratory:: Bilateral: CTA
Lung Excursion:: Normal
Abdomen:: Nontender and Soft
Bowel Sounds:: Decreased
Extremity Edema:: None: Bilateral:
Gavin Catheter: No
--- NOTE | 2025-03-30 12:36 | PTCARENOTE ---
Assumed report from RN and covering care of pt at this time. Pt resting with eyes closed, arouses to conversation and denies pain. Resp easy and reg on room air. Pt PD catheter intact to abdominal wall and PD drain started at 1218. Pt encouraged to
rotate to assist draining. PD in process
--- NOTE | 2025-03-30 14:04 | PTCARENOTE ---
Patient's PD completed. He is for discharge; daughter will take home. Patient requesting to be sent home full; he states he is sent home full because his machine is set to empty first. He stated he was sent home empty once and his machine was
'messed up.' Daughter in room and confirms.Discussed with Dr Singh as hospital policy is to send home empty as per Oleg Echavarria, nurse educator. 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
--- NOTE | 2025-03-30 15:33 | PTCARENOTE ---
Patient was in bathroom and had loose bm mixed with red blood; states history of hemorrhoids. Patient then unable to stand for longer that a few seconds before needing to sit back on toilet. Wheelchair brought to bathroom and patient assisted to w/c
with assistance of PT/OT. He was wheeled to bed and needed to be lifted to get back into bed. TT sent to Dr Pedroza who then requested phone call. This RN reviewed above; instructed to cancel discharge. Also requested to inform case management and ask
daughter to come tomorrow between [phone] when he will round. Daughter currently in room and made aware. TT sent to Zayra WEI. Patient updated.
--- NOTE | 2025-03-30 15:47 | W.PN.UPDATE ---
Update Note
Progress Note Update
RN notified that patient was in bathroom withe some blood in the stool, suspecting hemorrhoidal in nature
although patient quite weak and not able to get up from commode
RN required help of PT to transfer patient to wheelchair and into bed.
Patient will required repeat evaluation by PT in the morning
Discussed with CM and will hold the discharge plan
Unfortunatelty complex medication situation and will need to talk with daughter/family in person tomorrow morning n
[2025-03-30] MEDS: PEPTO-BISMOL 2 TABLET PO (15:50)
--- NOTE | 2025-03-30 17:33 | CM ---
Patient with Hx ESRD on PD, Recent episode of infectious ileitis/enteritis with Dx Generalized weakness, Recurring diarrhea. PT/OT recommend HH.
Met with patient and daughter Alivia today; initially daughter was going to take patient home today. IMM completed. Daughter requested Palliative Care Consult ---> Dr Pedroza notified, per MD Palliative Care will see patient as outpatient.
Message from [facility]: He is scheduled for a visit with 04/12 at 9am.
Notified later by Dr Pedroza and nurse Manning that discharge was cancelled due to episode of blood with BM.
Spoke with Dr Pedroza; patient now having difficulty with mobility so Pt/OT Re-evals ordered.
Prior plan home with referral to Palliative Care, with resumption of [facility], with resumption caregivers, with daughter.
Plan follow up after seen by PT/OT.
[2025-03-30] MEDS: TYLENOL 650 MG PO (21:28)
[2025-03-30] MEDS: TUMS CHEWABLE TABLET 200 MG PO (21:28)
[2025-03-30] MEDS: REMERON 30 MG PO (21:28)
[2025-03-30] MEDS: MELATONIN 5 MG PO (21:29)
[2025-03-31 05:29] LABS: Hematocrit 30.2 % (39.0-52.0); Hemoglobin 10.1 g/dL (13.0-18.0); Mean Corp Hgb Conc. 33.4 g/dL (33.0-37.0); Mean Corpuscular Hgb 30.1 pg (27.0-31.0); Mean Corpuscular Volume 89.9 fL (80.0-94.0); Mean Platelet Volume 9.7 fL (7.4-10.4); Platelet Count 244 10^3/uL (130-400); Red Blood Cell Count 3.36 10^6/uL (4.70-6.10); Red Cell Dist. Width 16.5 % (11.5-14.5); White Blood Cell Count 9.9 10^3/uL (4.8-10.8)
[2025-03-31] MEDS: SYNTHROID 150 MCG PO (06:00)
[2025-03-31 06:04] LABS: Blood Urea Nitrogen 26 mg/dl (9-20); Calcium 7.4 mg/dl (8.4-10.2); Carbon Dioxide 32 mmol/L (22-30); Chloride 95 mmol/L (98-107); Estimated Creatinine Clearance 8 ml/min; Sodium 130 mmol/L (135-145); eGFR 8.63
[2025-03-31 06:08] LABS: Glucose 78 mg/dl (70-99); Potassium 3.5 mmol/L (3.5-5.1)
[2025-03-31 07:30] VITALS: BP 139/51
[2025-03-31] MEDS: ELIQUIS 2.5 MG PO (08:17)
[2025-03-31] MEDS: PROTONIX 40 MG PO (08:17)
[2025-03-31] MEDS: PACERONE 200 MG PO (08:18)
[2025-03-31] MEDS: OSCAL CAL 500 500 MG PO (08:18)
[2025-03-31] MEDS: LIPITOR 40 MG PO (08:18)
[2025-03-31] MEDS: MAG-TAB SR 84 MG PO (08:19)
[2025-03-31] MEDS: LOW STRENGTH ASPIRIN 81 MG PO (08:19)
[2025-03-31] MEDS: NEPHROCAP 1 CAPSULE PO (08:19)
--- NOTE | 2025-03-31 09:49 | W.PN.HOSP.TC ---
Today's Communication/Plan
-
see note
discharge planning
Assessment / Plan
Assessment / Plan
1. Recurring diarrhea
Recent episode of infectious ileitis/enteritis
- Patient was discharged from hospital on 03/24 after being treated for presumed infectious ileitis/enteritis
- Stool studies were negative last week
- Patient presented for ongoing diarrhea again, reported bowel movements in hospital has been soft
- No associated abdominal pain/nausea/vomiting/fever. Abdominal examination remains benign
- PT evaluated and appropriate for home level ca
- Patient likely have postinfectious vs chronic diarrhea at this stage. continual symptomatic care with imodium +- lomotil discussed. I have called GI to provide patient early appointment as will require further OP testing if symptoms persist.
2. End-stage renal disease on peritoneal dialysis
- Patient remains in IMU to facilitate peritoneal dialysis
- Nephrology on board and help appreciated.
3. Leukocytosis -likely reactive
- almost resolved. 12k today
- Continue monitoring off antibiotics
- If patient spikes fever will require blood/urine culture/stool studies with initiation of broad-spectrum antibiotics
4. Chronic hyponatremia
- As part of ESRD, monitor.
5. Generalized weakness
Possible vasovagal event
- Patient reportedly very weak and required two-person assistance yesterday evening to get him to bed
- Physical therapy reported some amount of vasovagal event with patient being diaphoretic as well
- repeat PT evaluation have been requested
Hypotension on Midodrine PRN
Hx essential HTN
HX A. fib on Eliquis/amiodarone
Infrarenal abdominal aortic aneurysm measuring 3.3 cm.
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
GI bleeding history from hemorrhoids 11/2024
HX colon polyp
HX left occipital stroke with severe left carotid stenosis
CAD - continue ASA/Statin
Hyperlipidemia
Hypothyroidism - continue Levothyroxine
Chronic diastolic HF - EF 60-65% on 11/23/24
DVT ppx: SCDs
Code: Full
Care plan discussed with daughter 03/28 and today
Daughter have expressed wish for patient to be enrolled in palliative care, CM has provided the details. Also daughter have expressed that she is not able to take care of her father and I have recommneded possible SNF placement . Asked CM to provide
daughter with contact details of SNF in the area to start the process. Daughter encouraged to discuss the issue with his father.
Discussed nephrology and patient ideally would benefit with [facility] facility based rehab although, few barriers to it - major 1 is better on dialysis as will require to be transition to temporary hemodialysis which patient have vehemently
declined in the past.
[facility] is looking into patient to be possibly transition to [facility] facility - although PD remains a major barrier in that scenario as well as that will require to be transition to hemodialysis.
Family have expressed concern of burnout with taking care of the patient and have some aid at home, which will need to be increased if patient wants to remain home level. Needless to say family already feel burdened and financially may not be
feasible.
Plan is to have meeting in person with daughter and patient at some point today if possible.
Meanwhile we will have physical therapy evaluate patient again today to check if patient remains appropriate for home level discharge.
Patient has been changed to inpatient level care .
Anticipated Discharge: Within 24 hours
Subjective/Interval History
-
Date of Service: March 31, 2025
Patient denies of having any diarrhea, no bowel movement overnight
Denies feeling bloated/abdominal pain/nausea/vomiting
Objective Data
-
Labs:
Laboratory Results
03/31/25
05:17
WBC 9.9
Hgb 10.1 L
Hct 30.2 L
Plt Count 244
Sodium 130 L
Potassium 3.5
Chloride 95 L
Carbon Dioxide 32 H
BUN 26 H
Creatinine 6.2 H*
Glucose 78
Calcium 7.4 L
Vital Signs:
Vital Signs
Temp Pulse Resp BP Pulse Ox
97.6 F 69 18 139/51 98
03/31/25 07:30 03/31/25 08:18 03/31/25 07:30 03/31/25 08:18 03/31/25 07:30
I&O
03/30/25 03/31/25 04/01/25
06:59 06:59 06:59
Intake Total 600 / 600 400 / 400
Output Total 1200 / 1200 400 / 400
Balance -600 / -600 0 / 0
Review of Systems
-
Respiratory: Reports No Symptoms
Cardiac: Reports No Symptoms
Abdomen/GI: Reports No Symptoms
Physical Exam
-
Respiratory: Clear to Auscultation
Cardiac: Regular Rhythm and S1/S2; Negative Murmur
GI: Soft, Nontender, Nondistended and Other (PD cath in place)
Neuro: Awake, Alert, Oriented and No Motor Deficits
Psych: Calm
[2025-03-31 10:12] VITALS: BP 129/45; PULSE 71; O2SAT 100
[2025-03-31 10:43] VITALS: BMI 19.2
--- NOTE | 2025-03-31 11:49 | W.PN.NEPH.PH ---
Today's Communication / Plan
-
cont PD while in hospital
Assessment/Plan
-
Impression:
Diarrhea and weakness
History of enteritis/ileitis
End-stage renal disease on peritoneal dialysis
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
Left carotid stenosis
Hypertension
Paroxysmal atrial fibrillation
Hyperphosphatemia
Anemia
History of CABG
h/o bilat CEA at [facility] 08/11/2024
Plan:
tolerating PD
PD 1.5%, Dwell 4hr, manual exchange
flow sheets noted
stable vol status
Leukocytosis improved
permissive HTN with h/o orthostatic hypotension
ok for d/c
-
-
Date of Service: March 31, 2025
CC / HPI / ROS
-
Chief Complaint:
Diarrhea
History of Present Illness:
End-stage renal disease on peritoneal dialysis presents with diarrhea and weakness
sodium 130 fluctuating
wbc normalized
wt is down
Review of Systems:
No chest pain shortness of breath nausea or vomiting no diarrhea
feels well today
Labs
-
Labs:
WBC 9.9 10^3/uL (4.8-10.8) 03/31/25 05:17
RBC 3.36 10^6/uL (4.70-6.10) L 03/31/25 05:17
Hgb 10.1 g/dL (13.0-18.0) L 03/31/25 05:17
Hct 30.2 % (39.0-52.0) L 03/31/25 05:17
Plt Count 244 10^3/uL (130-400) 03/31/25 05:17
Sodium 130 mmol/L (135-145) L 03/31/25 05:17
Potassium 3.5 mmol/L (3.5-5.1) 03/31/25 05:17
Chloride 95 mmol/L (98-107) L 03/31/25 05:17
Carbon Dioxide 32 mmol/L (22-30) H 03/31/25 05:17
BUN 26 mg/dl (9-20) H 03/31/25 05:17
Creatinine 6.2 mg/dL (0.7-1.3) H* 03/31/25 05:17
eGFR 8.63 03/31/25 05:17
Glucose 78 mg/dl (70-99) 03/31/25 05:17
Calcium 7.4 mg/dl (8.4-10.2) L 03/31/25 05:17
Albumin 2.7 g/dl (3.5-5.0) L 03/27/25 15:37
Physical Exam
-
Vital Signs:
Vital Signs
Temp Pulse Resp BP Pulse Ox
97.6 F 69 18 139/51 98
03/31/25 07:30 03/31/25 08:18 03/31/25 07:30 03/31/25 08:18 03/31/25 07:30
Cardiovascular:: Regular rate and rhythm
Respiratory:: Bilateral: CTA
Lung Excursion:: Normal
Abdomen:: Nontender and Soft
Bowel Sounds:: Decreased
Extremity Edema:: None: Bilateral:
Gavin Catheter: No
--- NOTE | 2025-04-01 15:49 | W.DCSUMMARY ---
Addendum entered and electronically signed by Jm Pedroza MD 04/01/25 16:50:
Correction:
Date of discharge ; 03/31/25
Original Note:
Discharge Summary
Discharge Data
Date of Admission: 03/31/25
Date of Discharge: 04/01/25
-
Pending Results: No
Hospital Course
Discharging Physician : Dr Jm Pedroza
Disposition : Home with home care
Primary care physician : Dr Iliana Hoang
Principal Discharge diagnosis :
Resolving diarrhea
Generalized weakness
Presyncope/orthostasis
Reactive leukocytosis
Chronic Discharge diagnosis :
Chronic debility
End-stage renal disease on hemodialysis
Episodic hypotension on midodrine
History of atrial fibrillation on Eliquis
Infrarenal abdominal aortic aneurysm
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
History of gastrointestinal bleed
History of colon polyp
History of left occipital stroke with severe left carotid stenosis
Coronary artery disease
Hyperlipidemia
Hypothyroidism
Chronic diastolic congestive heart failure
Hospital Course :
Patient is a 79-year-old male with above-mentioned past medical history was brought into ER for patient having recurrence of diarrhea and generalized weakness. Patient was discharged 3 days before after being diagnosed to having possible infectious
enteritis, where patient was managed conservatively. Postdischarge patient continued to have diarrhea and had a difficulty getting around. Patient came back to ER for further evaluation. In ER lab evaluation showing patient having some
leukocytosis and patient endorsing some abdominal pain. As patient has finished course of antibiotic no further antibiotic were provided and patient was planned to be monitored. Patient diarrhea had some improvement over next few days and this
felt to be postinfectious in nature. Blood work normalized without any further intervention as well. Patient abdominal pain was more or less mainly with peritoneal dialysis and was treated symptomatically. Post medical stabilization patient plan
to be discharged home although patient continues to have episodes of presyncope/weakness where patient require further assistance. Overall patient condition is guarded and may require alf level care although for that patient would require
to be transition to hemodialysis. Discussion was held with patient and family and patient has showed agreement presided. Patient family also discussing for patient to be followed up with palliative care clinic as well.
Important imaging findings :
None
Procedure findings :
None
Discharge Plan
-
Patient Disposition: Home (Routine Discharge)
Discharge Diagnosis/Procedures: Post infectious diarrhea, ESRD on Peritoneal dialysis
Condition: Fair
Diet: Other diet
Additional Diets: Potassium 2g
Activity: As tolerated
Driving Restrictions: No driving
Bathing Restrictions: OK to Shower
Referrals:
Iliana Hoang CRNP [Family Provider, Family Practice] - in one week
Zander Ramirez MD [Active, Gastroenterology] - in three to four weeks
Prescriptions:
New
pantoprazole 40 mg Tablet,Delayed Release (Dr/Ec)
40 mg PO BID Qty: 60 0RF
Rx Instructions:
Take 1 Tablet twice daily for 30 days THEN
Switch back to Take 1 Tablet once daily
loperamide [Imodium A-D] 2 mg capsule
2 mg PO QID PRN (Reason: Diarrhea) Qty: 20 0RF
oxycodone 5 mg tablet
5 mg PO BID PRN (Reason: For sev pain) Qty: 14 0RF
Rx Instructions:
Take half tablet for moderate pain
DO NOT EXCEED PRESCRIBED DOSE/FREQUENCY
diphenoxylate-atropine [Lomotil] 2.5-0.025 mg tablet
1 tab PO DAILY PRN (Reason: diarrhea) Qty: 10 0RF
Rx Instructions:
Use if diarrhea not improved from Imodium
CAN CAUSE CONFUSION
Continued
amiodarone 200 mg Tablet
200 mg PO DAILY
cyanocobalamin (vitamin B-12) 1,000 mcg Tablet
1,000 mcg PO DAILY
atorvastatin 40 mg Tablet
40 mg PO DAILY
levothyroxine 150 mcg Tablet
150 mcg PO DAILY
calcium carbonate 500 mg calcium (1,250 mg) Tablet,Chewable
500 mg PO DAILY
Dialyvite 800 800 mcg Tablet,Chewable
1 tab PO DAILY
Eliquis 5 mg tablet
2.5 mg PO BID
aspirin 81 mg Tablet,Chewable
81 mg PO DAILY
mirtazapine 15 mg Tablet
30 mg PO HS
hydralazine 10 mg tablet
5 mg PO TIDPRN PRN (Reason: SBP > 180 )
midodrine 2.5 mg tablet
2.5 mg PO BIDPRN PRN (Reason: low blood pressure)
melatonin 5 mg Tablet
5 mg PO HS
lisinopril 5 mg Tablet
5 mg PO DAILYPRN PRN (Reason: HIGH BLOOD PRESSURE OVER 130)
calcium carbonate [Tums] 200 mg calcium (500 mg) Tablet,Chewable
200 mg PO BIDPRN PRN (Reason: GERD)
bismuth subsalicylate [Pepto-Bismol] 262 mg Tablet,Chewable
2 tab PO DAILYPRN PRN (Reason: GERD)
inulin-sorbitol 2 gram Tablet,Chewable
1 tab PO BID
Discontinued
magnesium oxide 400 mg (241.3 mg magnesium) Tablet
400 mg PO DAILY
pantoprazole 40 mg Tablet,Delayed Release (Dr/Ec)
40 mg PO DAILY Qty: 30 0RF
Discharge Orders:
Discharge Patient (As Directed); Ordered 03/31/25
Ordered By: Jm Pedroza
Discharge Date and Time
Discharge Date/Time: 03/31/25 13:13
Print Language: ARGENTINE
== END 2025-03-31 13:13 | disposition home or self-care (01) | DRG 391 ==
LOC: IMU 09:44
PROVIDERS: ADMITTING PHYSICIAN Internal Medicine; ATTENDING PHYSICIAN Hospitalist; EMERGENCY PHYSICIAN Emergency Medicine; FAMILY PHYSICIAN Nurse Practitioner Family; OTHER PHYSICIAN Internal Medicine Nephrology
DX: R19.7 Diarrhea, unspecified (principal); N18.6 End stage renal disease; I13.2 Hypertensive heart and chronic kidney disease with heart failure and with stage 5 chronic kidney disease, or end stage renal disease; E87.1 Hypo-osmolality and hyponatremia; I50.42 Chronic combined systolic (congestive) and diastolic (congestive) heart failure; Z99.2 Dependence on renal dialysis; Z79.01 Long term (current) use of anticoagulants; I48.0 Paroxysmal atrial fibrillation; Z86.73 Personal history of transient ischemic attack (TIA), and cerebral infarction without residual deficits; Z95.1 Presence of aortocoronary bypass graft; I25.10 Atherosclerotic heart disease of native coronary artery without angina pectoris; Z86.0100 Personal history of colon polyps, unspecified; Z11.52 Encounter for screening for COVID-19; E78.00 Pure hypercholesterolemia, unspecified; E03.9 Hypothyroidism, unspecified; D63.1 Anemia in chronic kidney disease; Z87.891 Personal history of nicotine dependence; Z79.890 Hormone replacement therapy; Z79.82 Long term (current) use of aspirin; E83.39 Other disorders of phosphorus metabolism; I95.1 Orthostatic hypotension
CPT/HCPCS: 80048; 80053; 83605; 84443; 84484; 85025; 85027; 87040; 87502; 87811; 93005; 97116; 97163; 97166; 97535; 99284